=== PATIENT | female | born 1980 | race Caucasian/White ===

== ENCOUNTER 2024-01-09 14:49 | Outpatient (OUT) | payer SELFPAY | END 2024-01-09 14:50 | disposition home or self-care (01) | LOC: PST 14:49 | PROVIDERS: Visit Provider Urology | DX: Z01.818 Encounter for other preprocedural examination (principal); N20.0 Calculus of kidney ==

== ENCOUNTER 2024-01-16 07:14 | Day surgery (SDC) | payer OTHER, SELFPAY ==
[2024-01-16] VITALS (11 sets, daily range): BP systolic 108–145; BP diastolic 74–85; PULSE 57–72; TEMP 36.4; O2SAT 98–100; BMI 29.1
--- OUTSIDE RECORDS SUMMARY | 2024-01-16 07:22 | XMS_ITS | CCD ---
Author Organization [facility] Inform ion [facility] Care Team Providers Care Project Surveyor Name Role Phone FRANCISCO HELTON Consulting Unavailable REQUEST, NONE LISTED Primary Care Unavailable SUNITHA, FRANCISCO Admitting Unavailable SUNITHA, FRANCISCO Attending Unavailable EVAN STOREY Consulting Unavailable AGUBOSIM, LAUREN Consulting Unavailable HELTON, FRANCISCO Consulting Unavailable HELTON, FRANCISCO Admitting Unavailable MISC, DOCTOR Primary Care Unavailable SUNITHA, FRANCISCO Attending Unavailable FRANCA, DAVON Berrios Consulting Unavailable TESFAYE, GENTRY Consulting Unavailable SUNITHA, FRANCISCO Consulting Unavailable SUNITHA, FRANCISCO Admitting Unavailable SUNITHA, FRANCISCO Attending Unavailable MIGEL PINO Consulting Unavailable Lyudmila Romeo Unavailable Venancio LA, Radha Unavailable Unavailable Kip MARTE, Eldon Peña Primary Care Provi j carlos Eldon SHIN Primary Care Physician [phone] Shelly Rogers Unavailable Unavailable Lyudmila Romeo Unavailable Venancio LA, Radha Unavailable Unavailable Kip MARTE, Eldon Peña Primary Care Provi j carlos Lyudmila Romeo Unavailable Venancio LA, Radha Unavailable Unavailable Kip MARTE, Eldon Peña Primary Care Provi j carlos ELDON SHIN Primary Care Unava ilable LOUDEN, CELSO Attending Unavailable ELDON SHIN Primary Care Unava ilable LOUDEN, CELSO Attending Unavailable ELDON SHIN Primary Care Unava ilable LOUDEN, CELSO Attending Unavailable ELDON SHIN Primary Care Unava ilable LOUDEN, CELSO Referring Unavailable ABELARDO, CELSO Attending Unavailable Lyudmila Romeo DO Unavailable Venancio LA, Radha Unavailable Unavailable Kip MARTE, Eldon Peña Primary Care Provi j carlos Eldon SHIN Primary Care Physician [phone] Eldon SHIN Admitting Unavailable BROWN, Eldon Attending Unavailable HELTON, Francisco R Attending Unavailable HELTON, Francisco R Admitting Unavailable Hajdari, Astrit H Attending Unavailable JOHAN, JAYSHREE Dupont Referring Unavailable JOHAN, JAYSHREE Dupont Attending Unavailable JOHAN, JAYSHREE Dupont Admitting Unavailable Joe Green Attending Unavailable BROWN, Eldon Attending Unavailable BROWN, Eldon Attending Unavailable BROWN, Christmasha Attending Unavailable BROWN, Christmasha Attending Unavailable HELTON, Francisco R Attending Unavailable HELTON, Francisco R Attending Unavailable BROWN, Eldon Admitting Unavailable BROWN, Eldon Referring Unavailable BROWN, Eldon Attending Unavailable Cromahogany, Abhi Fischer Attending Unavailable Cromlflakita, Abhi Fischer Referring Unavailable BROWN, Eldon Attending Unavailable Hajdari, Astrit H Attending Unavailable HELTON, Francisco R Attending Unavailable HELTON, Francisco R Referring Unavailable HELTON, Francisco R Attending Unavailable HELTON, Francisco R Admitting Unavailable HELTON, Francisco R Attending Unavailable Allergies Allergy Classification Reported Allergen(s) Allergy Type Date of Onset Reaction(s) Facility (1 source) Grass pollen Drug allergy (disorder) [facility] (1 source) Mold Extract Drug Allergy [facility] (1 source) animal dander Drug allergy (disorder) [facility] (20 sources) GRASS, POLLEN, TREES, WEEDS,MOLD, ANIMAL DANDER 1 Allergy to substance [facility] [place] Comment on above: ASTHMA (3 sources) GRASS, POLLEN, TREES, WEEDS,MOLD, ANIMAL DANDER; Translations: [GRASS, POLLEN, TREES, WEEDS,MOLD, ANIMAL DANDER] Propensity to adverse reactions (disorder) [facility] Repository (3 sources) No Known Medication Allergies; Translations: [No Known Medication Allergies] Propensity to adverse reactions (disorder) [facility] Rep[facility] NEGATED: Highlighted row has been ruled out!Unclassified (1 source) Drug allergy [facility] NEGATED: Highlighted row has been ruled out! (1 source) Drug allergy [facility] NEGATED: Highlighted row has been ruled out! (1 source) Drug allergy [facility] NEGATED: Highlighted row has been ruled out! (1 source) Drug allergy [facility] Radha NEGATED: Highlighted row has been ruled out! (1 source) Drug allergy [facility] Luciano NEGATED: Highlighted row has been ruled out! (1 source) Drug allergy [facility] [place] NEGATED: Highlighted row has been ruled out! (1 source) Drug allergy [facility] Medicine Luciano NEGATED: Highlighted row has been ruled out! (1 source) Drug allergy [facility] [place]iano NEGATED: Highlighted row has been ruled out! (1 source) Drug allergy [facility] [place] NEGATED: Highlighted row has been ruled out! (1 source) Drug allergy [facility] [place]iano NEGATED: Highlighted row has been ruled out! (1 source) Drug allergy [facility] [place] NEGATED: Highlighted row has been ruled out! (1 source) Drug allergy [facility] [place] NEGATED: Highlighted row has been ruled out! (1 source) Drug allergy [facility] [place] NEGATED: Highlighted row has been ruled out! (1 source) Drug allergy [facility] [place] NEGATED: Highlighted row has been ruled out! (1 source) Drug allergy [facility] [place] NEGATED: Highlighted row has been ruled out! (1 source) Drug allergy [facility] [place] NEGATED: Highlighted row has been ruled out! (1 source) Drug allergy [facility] [place] NEGATED: Highlighted row has been ruled out! (1 source) Drug allergy [facility] [place] NEGATED: Highlighted row has been ruled out! (1 source) Drug allergy [facility] [place] NEGATED: Highlighted row has been ruled out! (1 source) Drug allergy [facility] [place] NEGATED: Highlighted row has been ruled out! (1 source) Drug allergy [facility] [place] Medications Current Medications Medication Drug Class(es) Dates Sig (Normalized) Sig (Original) 0.5 ML tirzepatide 30 MG/ML Auto-Injector [Mounjaro] (4 sources) Start: 08-16-2022 inject 15 mg by subcutaneous injection every week Mounjaro 15 mg/0.5 mL subcutaneous solution 15 mg, SubCutaneous, qWeek, Refills(s) 0 Start Date: 08/16/22 Status: Ordered amitriptyline hydrochloride 10 mg oral tablet (17 sources) Tricyclic Antidepressant Start: 10-19-2022 amitriptyline 10 mg Tab See Instructions, Take upto 3 tabs at bedtime for insomnia, # 270 tab(s), Refills(s) 1, Pharmacy: [facility], [facility], cm, 08/16/22 7:55:00 EST, Height/Length Dosing, 83.3, kg, 08/16/22 7:55:00 EST, Weight Dosing Start Date: 10/19/22 Status: Ordered Start: 08-16-2022 amitriptyline 10 mg Tab See Instructions, Take upto 3 tabs at bedtime for insomnia, # 270 tab(s), Refills(s) 1, Pharmacy: [facility], 167, cm, 08/16/22 7:55:00 EST, Height/Length Dosing, 83.3, kg, 08/16/22 7:55:00 EST, Weight Dosing Start Date: 08/16/22 Status: Ordered Start: 10-02-2021 End: 12-06-2021 amitriptyline 10 mg Tab See Instructions, Take upto 3 tabs at bedtime for insomnia, # 270 tab(s), Refills(s) 1, Pharmacy: [facility], 167, cm, 10/02/21 15:47:00 EDT, Height/Length Dosing, 90, kg, 10/02/21 15:47:00 EDT, Weight Dosing Start Date: 10/02/21 Status: Ordered Comment on above: Take 30 mg by mouth daily at bedtime. bifidobacterium infantis 4 mg oral capsule (20 sources) Start: 10-18-19 take 1 capsule by mouth once daily Align 4 mg oral capsule 4 mg = 1 cap(s), Oral, Daily, Take after completing the Antibiotics course, # 28 cap(s), Refills(s) 0, Pharmacy: [facility], 168, cm, 10/17/20 9:23:00 EDT, Height/Length Dosing, 87.5, kg, 10/17/20 9:23:00 EDT, Weight Dosing Start Date: 10/17/20 Status: Ordered 24 hr buPROPion hydrochloride 300 mg extended release oral tablet (20 sources) Aminoketone Start: 10-04-19 24 take 1 tablet by mouth once daily buPROPion 300 mg/24 hours ER Tab 300 mg = 1 tab(s), Oral, Daily, # 90 tab(s), Refills(s) 3, Pharmacy: [facility], 167, cm, 08/30/23 16:13:00 EDT, Height/Length Dosing, 85.9, kg, 08/30/23 16:22:00 EDT, Weight Dosing Start Date: 10/04/23 Status: Ordered Start: 10-02-2021 take 1 tablet by kelly th once daily buPROPion 300 mg/24 hours ER Tab 300 mg = 1 tab(s), Oral, Daily, # 90 tab(s), Refills(s) 1, Pharmacy: [facility], 167, cm, 03/01/23 15:57:00 EDT, Height/Length Dosing, 84, kg, 03/01/23 15:57:00 EDT, Weight Dosing Start Date: 03/01/23 Status: Ordered Start: 04-14-2021 End: 06-12-2022 take 1 tablet by mouth three times daily buPROPion (WELLBUTRIN) 100 mg tablet Take 1 tablet by mouth three times daily. 0 04/14/2021 06/12/2022 Discontinued (Changing Therapy/Dosage Form) Comment on above: Take 1 tablet by kelly th three times daily. Take 300 mg by mouth once daily. calcium citrate 500 mg oral tablet (20 sources) Start: 08-30-2020 take 500 mg by mouth three times daily calcium citrate 500 mg, Oral, TID, Prophylaxis Start Date: 08/30/20 Status: Ordered take 2 tablets by mo uth three times daily, then take 2 tablets by mouth three times daily Calcium Citrate 250 mg calcium tab Take 2 tablets by mouth three times daily. 2 tablets by mouth three times daily 0 Active Comment on above: Take 2 tablets by mo [facility] three times daily. 2 tablets by mouth three times daily Celebrate Multivitamin oral tablet, chewable (20 sources) Start : 10-21 take 1 tablet by mouth twice daily Celebrate Multivitamin oral tablet, chewable 1 tab(s), Chewed, BID, Refill(s) 0, Prophylaxis Start Date: 10/21/18 Status: Ordered cetirizine hydrochloride 10 mg oral tablet (20 sources) Histamine-1 Receptor Antagonist Start : 02-07 take 1 tablet by mouth once daily ZyrTEC 10 mg Tab 10 mg = 1 tab(s), Oral, Daily, Refills(s) 0, Allergy symptoms Start Date: 02/08/12 Status: Ordered Comment on above: Take 10 mg by mouth. citric acid 128 mg/ml / sodium citrate 98 mg/ml oral solution (1 source) Calculi Dissolution Agent, Anti-coagulant Start : 02-08 Oracit oral solution See Instructions, 900 mL, Refill(s) 6, Take 6 teaspoons per day, [facility], 167, cm, 01/07/23 8:50:00 EDT, Height/Length Dosing, 87.2, kg, 01/07/23 8:50:00 EDT, Weight Dosing Start Date: 02/08/23 Status: Ordered Collagen (12 sources) Start : 10-17 collagen topical powder BID, Refill(s) 0 Start Date: 10/17/20 Status: Ordered diazePAM 2 mg oral tablet (3 sources) Benzodiazepine Start : 12-12 take 1 tablet by mouth twice daily diazepam 2 mg Tab 2 mg = 1 tab(s), Oral, BID, rn severe vertigo, sedation warning, # 10 tab(s), Refills(s) 0, Pharmacy: [id number], 165, cm, 12/13/23 10:32:00 EDT, Height/Length Dosing, 86, kg, 12/13/23 10:32:00 EDT, Weight Dosing Start Date: 12/13/23 Status: Ordered doxepin hydrochloride 10 mg oral capsule (6 sources) Tricyclic Antidepressant Start : 11-28 take 1-2 capsules by mouth at bedtime doxepin 10 mg Cap See Instructions, 1-2 cap(s) orally at bedtime for insomnia, # 60 cap(s), Refills(s) 5, Pharmacy: [id number], 167, cm, 11/29/23 14:58:00 EDT, Height/Length Dosing, 88.4, kg, 11/29/23 14:58:00 EDT, Weight Dosing Start Date: 11/29/23 Status: Ordered hydroCHLOROthiazide 12.5 mg oral capsule (20 sources) Thiazide Diuretic Start : 04-23 End: 04-09 take 1 capsule by mouth once daily hydrochlorothiazide 12.5 mg Cap 12.5 mg = 1 cap(s), Oral, Daily, X 90 day(s), # 90 cap(s), Refills(s) 3, Pharmacy: [facility], 167, cm, 03/01/23 15:57:00 EDT, Height/Length Dosing, 84, kg, 03/01/23 15:57:00 EDT, Weight Dosing Start Date: 04/15/23 Stop Date: 04/09/24 Status: Ordered Start: 06-16-2021 take 1 capsule by mo uth once daily hydrochlorothiazide 12.5 mg Cap 12.5 mg = 1 cap(s), Oral, Daily, # 30 cap(s), Refills(s) 11, Pharmacy: [facility], 167, cm, 06/16/21 8:25:00 EST, Height/Length Dosing, 85, kg, 06/16/21 8:25:00 EST, Weight Dosing Start Date: 06/16/21 Status: Ordered take 1 tablet by kelly th once daily hydroCHLOROthiazide (HYDRODIURIL, ESIDRIX) 12.5 mg tablet Take 12.5 mg by mouth once daily. 0 Active Comment on above: Take 12.5 mg by mout h once daily. meclizine hydrochloride 25 mg oral tablet (3 sources) Antiemetic Start: 4 End: 4 take 1 tablet by mouth three times daily as needed for dizziness meclizine 25 mg Tab 25 mg = 1 tab(s), Oral, TID, PRN for dizziness, prn vertigo, X 3 day(s), # 15 tab(s), Refills(s) 0, Pharmacy: [id number], 165, cm, 12/13/23 10:32:00 EDT, Height/Length Dosing, 86, kg, 12/13/23 10:32:00 EDT, Weight Dosing Start Date: 12/13/23 Stop Date: 12/16/23 Status: Ordered metFORMIN hydrochloride 500 mg oral tablet (11 sources) Biguanide Start: take 1 tablet by mouth once daily in the morning, then take 2 tablets by mouth once daily in the evening MetFORMIN (Eqv-Glucophage XR) 500 mg oral tablet, extended release See Instructions, 1 tab(s) po qam, 2 tabs po qpm, # 270 tab(s), Refills(s) 1, Pharmacy: [facility], 167, cm, 08/30/23 16:13:00 EDT, Height/Length Dosing, 85.9, kg, 08/30/23 16:22:00 EDT, Weight Dosing Start Date: 08/30/23 Status: Ordered Start: 07-16-2023 End: 01-12-2024 take 2 tablets by mouth once daily at dinner metFORMIN ER (GLUCOPHAGE XR) 500 mg 24 hr tablet Indications: prevention of type 2 diabetes mellitus Take 2 tablets by mouth daily with dinner. 180 tablet 1 07/16/2023 01/12/2024 Active Start: 07-03-2023 End: 07-16-2023 take 2 tablets by mouth twice daily at mealtime metFORMIN (GLUCOPHAGE) 500 mg tablet Take 2 tablets by mouth two times a day with meals. 360 tablet 1 07/03/2023 07/16/2023 Discontinued (Changing Therapy/Dosage Form) Comment on above: Take 2 tablets by mo ut daily with dinner. Take 2 tablets by mo uth two times a day with meals. minocycline 100 mg oral capsule (3 sources) Tetracycline-class Drug Start: 07-10-2022 minocycline 100 mg Cap Refills(s) 0 Start Date: 07/10/22 Status: Ordered Start: 10-02-2021 minocycline Re fills(s) 0 Start Date: 10/02/21 Status: Ordered Miralax 17 gram packet (18 sources) Start: 08-30-2020 take 17 g by mouth once daily Miralax 17 gram packet 17 gram, Oral, Daily, dissolve in water before taking, Constipation Start Date: 08/30/20 Status: Ordered Mounjaro 15 mg/0.5 mL subcutaneous solution (2 sources) Start: 08-16-2022 inject 15 mg by subcutaneous injection every week Mounjaro 15 mg/0.5 mL subcutaneous solution 15 mg, SubCutaneous, qWeek, Refills(s) 0 Start Date: 08/16/22 Status: Ordered phentermine hydrochloride 37.5 mg oral tablet (18 sources) Sympathomimetic Amine Anorectic Start: 11-29-2023 phentermine 37.5 mg Tab 37.5 mg = 1 tab(s), Oral, Daily, 31.7 BMI before breakfast, # 30 tab(s), Refills(s) 0, Pharmacy: [id number], 167, cm, 11/29/23 14:58:00 EDT, Height/Length Dosing, 88.4, kg, 11/29/23 14:58:00 EDT, Weight Dosing Start Date: 11/29/23 Status: Ordered Start: 07-03-2023 End: 10-01-2023 phentermine 37.5 mg Tab 37.5 mg = 1 tab(s), Oral, Daily, 30.8 BMI before breakfast, # 30 tab(s), Refills(s) 0, Pharmacy: [facility], 167, cm, 08/30/23 16:13:00 EDT, Height/Length Dosing, 85.9, kg, 08/30/23 16:22:00 EDT, Weight Dosing Start Date: 08/30/23 Status: Ordered Start: 01-08-2022 End: 03-09-2022 take 30-30.9 tablets by mouth once daily Phentermine HCl 37.5 mg tablet Indications: Class 1 obesity with body mass index (BMI) of 30.0 to 30.9 in adult, unspecified obesity type, unspecified whether serious comorbidity present Take 1 tablet by mouth once daily for 30 days. 30 tablet 0 02/07/2022 03/09/2022 Active Start: 12-15-2021 take 1 capsule by mo [facility] once daily phentermine 37.5 mg oral capsule 37.5 mg = 1 cap(s), Oral, Daily, Refills(s) 0 Start Date: 12/15/21 Status: Ordered Start: 12-06-2021 End: 01-05-2022 take 30-30.9 tablets by mouth once daily Phentermine HCl 37.5 mg tablet Indications: Class 1 obesity with body mass index (BMI) of 30.0 to 30.9 in adult, unspecified obesity type, unspecified whether serious comorbidity present Take 1 tablet by mouth once daily for 30 days. 30 tablet 0 12/06/2021 01/05/2022 Active Comment on above: Take 1 tablet by [facility] once daily for 30 days. Take 1 tablet by [facility] once daily for 90 days. polyethylene glycol 3350 12072 mg powder for oral solution (15 sources) Osmotic Laxative Start: 08-30-2020 take 17 g by mouth once daily Miralax 17 gram packet 17 gram, Oral, Daily, dissolve in water before taking, Constipation Start Date: 08/30/20 Status: Ordered Comment on above: Take by mouth once d aily. 0.25 mg, 0.5 mg dose 1.5 ml semaglutide 1.34 mg/ml pen injector (10 sources) Start: 12-15-2021 Ozempic 2 mg/1.5 mL (0.25 mg or 0.5 mg dose) subcutaneous solution mg, SubCutaneous, qWeek, Refill(s) 0 Start Date: 12/15/21 Status: Ordered Start: 12-06-2021 End: 03-06-2022 semaglutide (OZEMPIC) 0.25 m g or 0.5 mg(2 mg/1.5 mL) pen injector Inject 0.5 mg subcutaneously one time a week. 2 mL 2 12/06/2021 02/07/2022 Discontinued (Changing Therapy/Dosage Form) Start: 11-01-2021 End: 12-13-2021 inject 0.25 mg by subcutaneous injection every week, then inject 0.5 mg by subcutaneous injection every week semaglutide (OZEMPIC) 0.25 mg or 0.5 mg(2 mg/1.5 mL) pen injector Inject 0.25 mg subcutaneously one time a week for 28 days, THEN 0.5 mg one time a week for 14 days. 1.5 mL 0 11/01/2021 12/06/2021 Discontinued (Changing Therapy/Dosage Form) Comment on above: Inject 0.25 mg subcu taneously one time a week for 28 days, THEN 0.5 mg one time a week for 14 days. Inject 0.5 mg subcut aneously one time a week. tirzepatide (MOUNJARO) 12.5 mg/0.5 mL pen injector (2 sources) Start: End: inject 12.5 mg by subcutaneous injection every week tirzepatide (MOUNJARO) 12.5 mg/0.5 mL pen injector Inject 12.5 mg subcutaneously one time a week. 2 mL 2 12/06/2022 03/06/2023 Active Start: 07-02-2022 End: 09-30-2022 inject 12.5 mg by subcutaneous injection every week tirzepatide (MOUNJARO) 12.5 mg/0.5 mL pen injector Indications: S/P gastric bypass , Obesity (BMI 30.0-34.9) Inject 12.5 mg subcutaneously one time a week. 2 mL 2 07/02/2022 09/30/2022 Active Comment on above: Inject 12.5 mg subcu taneously one time a week. tirzepatide (MOUNJARO) 15 mg/0.5 mL pen injector (2 sources) Start: End: inject 15 mg by subcutaneous injection every week tirzepatide (MOUNJARO) 15 mg/0.5 mL pen injector Inject 15 mg subcutaneously one time a week. 2 mL 2 11/19/2022 02/17/2023 Active Start: 08-10-2022 End: 11-08-2022 inject 15 mg by subcutaneous injection every week tirzepatide (MOUNJARO) 15 mg/0.5 mL pen injector Inject 15 mg subcutaneously one time a week. 2 mL 2 08/10/2022 11/08/2022 Active Comment on above: Inject 15 mg subcuta neously one time a week. Vitamin B1 100 mg Tab (6 sources) Start: Vitamin B1 100 mg Tab 300 mg = 3 tab(s), Oral, Daily, Refills(s) 0, Prophylaxis Start Date: 09/26/20 Status: Ordered Zofran ODT 4 mg Tab-Dis (5 sources) Start: take 1 tablet by mouth three times daily Zofran ODT 4 mg Tab-Dis 4 mg = 1 tab(s), Oral, TID, # 15 tab(s), Refills(s) 0, Pharmacy: [facility], 165.1, cm, 12/10/23 8:43:00 EDT, Height/Length Dosing, 85.3, kg, 12/10/23 8:43:00 EDT, Weight Dosing Start Date: 12/10/23 Status: Ordered Completed/Discontinued Medications Medication Drug Class(es) Dates Sig (Normalized) Sig (Original) ARIPiprazole 5 mg oral tablet (20 sources) Atypical Antipsychotic Start: 10-02-2021 take 1 tablet by mouth once daily Abilify 5 mg Tab 5 mg = 1 tab(s), Oral, Daily, discontinue Fuoxetine, # 90 tab(s), Refills(s) 1, Pharmacy: [facility], 167, cm, 08/16/22 7:55:00 EST, Height/Length Dosing, 83.3, kg, 08/16/22 7:55:00 EST, Weight Dosing Start Date: 08/16/22 Status: Ordered Comment on above: Take 5 mg by mouth d aily at bedtime. diphenhydrAMINE hydrochloride 25 mg oral capsule (8 sources) Histamine-1 Receptor Antagonist Start: 06-10-2016 End: 06-12-2022 diphenhydrAMINE (BENADRYL) 25 mg capsule FLUoxetine 20 mg oral capsule (8 sources) Serotonin Reuptake Inhibitor Start: 04-14-2021 End: 06-12-2022 take 1 capsule by mouth once daily FLUoxetine (PROZAC) 20 mg capsule Take 1 capsule by mouth once daily. 0 04/14/2021 06/12/2022 Discontinued (Clinical Decision) Comment on above: Take 1 capsule by [facility] once daily. K-Effervescent 25 mEq oral tablet, effervescent (1 source) Start: 12-20-2023 take 1 tablet by mouth twice daily K-Effervescent 25 mEq oral tablet, effervescent 25 mEq = 1 tab(s), Oral, BID, # 60 tab(s), Refills(s) 11, Pharmacy: [id number], 167, cm, 12/20/23 9:58:00 EDT, Height/Length Dosing, 83.5, kg, 12/20/23 9:58:00 EDT, Weight Dosing Start Date: 12/20/23 Status: Ordered Lactobac no.41/Bifidobact no.7 (PROBIOTIC-10 ORAL) (12 sources) Start: 09-15-2018 Lactobac no.41/Bifidobact no.7 (PROBIOTIC-10 ORAL) melatonin 1 mg oral tablet (8 sources) Start: 04-14-2021 End: 06-12-2022 melatonin 1 mg tablet Take 1 tablet by mouth as needed for for insomnia. 0 04/14/2021 06/12/2022 Discontinued (Discontinued by another Health Care Provider) Comment on above: Take 1 tablet by kelly th as needed for for insomnia. Multivitamin preparation (12 sources) multivitamin (MULTIPLE VITAMINS ORAL) Take by mouth. 0 Active Comment on above: Take by mouth. mupirocin 0.02 mg/mg topical ointment (8 sources) RNA Synthetase Inhibitor Antibacterial Start: 05-15-2021 End: 06-12-2022 mupirocin (BACTROBAN) 2 % ointment Apply to incisions twice daily 30 g 1 05/15/2021 06/12/2022 Discontinued (Course of therapy completed) Comment on above: Apply to incisions t wice daily naproxen 500 mg oral tablet (17 sources) Nonsteroidal Anti-inflammatory Drug Start: 05-08-2022 take 1 tablet by mouth twice daily naproxen 500 mg Tab 500 mg = 1 tab(s), Oral, BID, Take one tab by mouth two times a day, # 14 tab(s), Refills(s) 0 Start Date: 05/08/22 Status: Ordered potassium chloride 20 meq extended release oral tablet (17 sources) Start: 11-29-2023 take 1 tablet by mouth once daily potassium chloride 20 mEq ER Tab 20 mEq = 1 tab(s), Oral, Daily, # 90 tab(s), Refills(s) 1, Pharmacy: [id number], 167, cm, 11/29/23 14:58:00 EDT, Height/Length Dosing, 88.4, kg, 11/29/23 14:58:00 EDT, Weight Dosing Start Date: 11/29/23 Status: Ordered Start: 06-17-2023 take 1 tablet by kelly once daily potassium chloride 20 mEq ER Tab 20 mEq = 1 tab(s), Oral, Daily, # 90 tab(s), Refills(s) 1, Pharmacy: [facility], 167, cm, 03/01/23 15:57:00 EDT, Height/Length Dosing, 84, kg, 03/01/23 15:57:00 EDT, Weight Dosing Start Date: 06/17/23 Status: Ordered Start: 12-07-2022 take 1 tablet by [facility] once daily potassium chloride 20 mEq ER Tab 20 mEq = 1 tab(s), Oral, Daily, # 90 tab(s), Refills(s) 1, Pharmacy: [facility], 167, cm, 08/16/22 7:55:00 EST, Height/Length Dosing, 83.3, kg, 08/16/22 7:55:00 EST, Weight Dosing Start Date: 12/07/22 Status: Ordered Start: 06-20-2022 take 1 tablet by [facility] once daily potassium chloride 20 mEq ER Tab 20 mEq = 1 tab(s), Oral, Daily, # 90 tab(s), Refills(s) 1, Pharmacy: [facility], 167, cm, 05/08/22 8:37:00 EST, Height/Length Dosing, 88, kg, 05/08/22 8:37:00 EST, Weight Dosing Start Date: 06/20/22 Status: Ordered psyllium 525 mg oral capsule (20 sources) Start: 10-17-2020 take 8 capsules by mouth once daily Metamucil 525 mg oral capsule 1,050 mg = 2 cap(s), Oral, Daily, Take 2 hour apart from the other medications with at least 8 ounces of water, # 160 cap(s), Refills(s) 1, Pharmacy: [facility], 168, cm, 10/17/20 9:23:00 EDT, Height/Length Dosing, 87.5, kg, 10/17/20 9:23:00 EDT, Weight Dosing Start Date: 10/17/20 Status: Ordered tirzepatide (MOUNJARO) 10 mg/0.5 mL pen injector (2 sources) Start: 05-15-2022 tirzepatide (M OUNJARO) 10 mg/0.5 mL pen injector Indications: S/P gastric bypass , Class 1 obesity with body mass index (BMI) of 30.0 to 30.9 in adult, unspecified obesity type, unspecified whether serious comorbidity present Inject 10 mg subcutaneously one time a week. 2 mL 0 05/15/2022 Active Start: 05-15-2022 End: 06-14-2022 tirzepatide (MOUNJARO) 10 mg /0.5 mL pen injector Indications: S/P gastric bypass , Class 1 obesity with body mass index (BMI) of 30.0 to 30.9 in adult, unspecified obesity type, unspecified whether serious comorbidity present Inject 10 mg subcutaneously one time a week. 2 mL 0 05/15/2022 06/14/2022 Active Comment on above: Inject 10 mg subcuta neously one time a week. tirzepatide (MOUNJARO) 2.5 mg/0.5 mL pen injector (2 sources) Start: End: inject 2.5 mg by subcutaneous injection every week tirzepatide (MOUNJARO) 2.5 mg/0.5 mL pen injector Inject 2.5 mg subcutaneously one time a week. 2 mL 0 02/07/2022 05/15/2022 Discontinued Start: 02-07-2022 End: 03-09-2022 inject 2.5 mg by subcutaneous injection every week tirzepatide (MOUNJARO) 2.5 mg/0.5 mL pen injector Inject 2.5 mg subcutaneously one time a week. 2 mL 0 02/07/2022 03/09/2022 Active Comment on above: Inject 2.5 mg subcut aneously one time a week. tirzepatide (MOUNJARO) 5 mg/0.5 mL pen injector (3 sources) Start: inject 5 mg by subcutaneous injection every week tirzepatide (MOUNJARO) 5 mg/0.5 mL pen injector Inject 5 mg subcutaneously one time a week. 2 mL 2 03/07/2022 Active Start: 03-07-2022 End: 06-05-2022 inject 5 mg by subcutaneous injection every week tirzepatide (MOUNJARO) 5 mg/0.5 mL pen injector Inject 5 mg subcutaneously one time a week. 2 mL 2 03/07/2022 06/05/2022 Active Comment on above: Inject 5 mg subcutaneously one time a we ek. tubing kit (6 sources) Start: 0 tubing kit tubing kit, See Instructions, 1 EA, 0, tubing kit for nebulizer, [employer] [facility], Supply, 168, cm, 02/10/20 15:36:00 EDT, Height/Length Dosing, 85, kg, 02/10/20 15:36:00 EDT, Weight Dosing Start Date: 03/08/20 Status: Ordered Vitamin D3 1000 intl units oral capsule (20 sources) Start: 0 take 5 capsules by mouth once daily Vitamin D3 1000 intl units oral capsule 5,000 International_Unit = 5 cap(s), Oral, Daily, Refills(s) 0, Prophylaxis Start Date: 08/20/19 Status: Ordered vitamin D3-vitamin K2, MK4, 1,000-100 unit-mcg tab (12 sources) take 1 capsule by mouth three times daily vitamin D3-vitamin K2, MK4, 1,000-100 unit-mcg tab Take 1 capsule by mouth three times daily. 0 Active Comment on above: Take 1 capsule by mouth three times danika y. Problems Active Problems Problem Classification Problem Date Documented Da te Episodic/Chronic Abdominal pain (1 source) Unspecified abdominal pain; Translations: [UNSPECIFIED ABDOMINAL PAIN] Onset: 1 Episodic Anxiety disorders (12 sources) Mixed anxiety and depressive disorder; Translations: [Other specified anxiety disorders] Onset: 1 04-14-2021 Chronic Asthma (20 sources) Moderate persistent asthma, uncomplicated; Translations: [Moderate persistent asthma] Onset: 1 Chronic Bacterial infection; unspecified site (1 source) Personal history of Methicillin resistant Staphylococcus aureus infection; Translations: [PERS HX METHICILLIN RSIST STAPH INF] Onset: 1 Episodic Calculus of urinary tract (20 sources) Calculus of kidney; Translations: [Kidney stone] Onset: 1 09-09-2020 Episodic Complications of surgical procedures or medical care (19 sources) Post-surgical malabsorption; Translations: [Postsurgical malabsorption, not elsewhere classified] Onset: 3 Chronic Conditions associated with dizziness or vertigo (5 sources) Dizziness and giddiness; Translations: [Dizziness and giddiness] Onset: 4 Episodic Essential hypertension (20 sources) Essential (primary) hypertension; Translations: [Essential hypertension] Onset: 1 Chronic Fluid and electrolyte disorders (16 sources) Hypokalemia; Translations: [Hypokalemia] Onset: 3 Episodic Genitourinary symptoms and ill-defined conditions (14 sources) Frequency of micturition; Translations: [Increased frequency of urination] Onset: 1 Episodic Genitourinary symptoms and ill-defined conditions (2 sources) Stress incontinence (female) (male); Translations: [Other microscopic hematuria] Onset: 1 Headache; including migraine (4 sources) Migraine without aura, not refractory ; Translations: [Migraine without aura, not intractable, without status migrainosus] Onset: 4 Chronic Headache; including migraine (1 source) Headache; Translations: [Headache, unspecified] Onset: 4 Episodic Immunizations and screening for infectious disease (1 source) Vaccination given; Translations: [Encounter for immunization] Onset: 3 Episodic Menstrual disorders (20 sources) Menorrhagia 02-05-2014 Chronic Miscellaneous mental health disorders (20 sources) Psychophysiologic insomnia; Translations: [Psychophysiologic insomnia] Onset: 2 Chronic Mood disorders (20 sources) Major depression single episode, in partial remission; Translations: [Major depressive disorder, single episode, in partial remission] Onset: 2 Resolved: 9 Chronic Mycoses (20 sources) Onychomycosis of toenails 09-15-2019 Episodic Other aftercare (1 source) Other senior living (current) drug therapy; Translations: [OTH SNF CURRENT DRUG THERAPY] Onset: 1 Episodic Other aftercare (1 source) Patient encounter status; Translations: [Other senior living (current) drug therapy] Episodic Other aftercare (1 source) Surgical follow-up; Translations: [Encounter for surgical aftercare following surgery on the digestive system] Episodic Other ear and sense organ disorders (20 sources) Otalgia 09-26-2020 Episodic Other gastrointestinal disorders (4 sources) Bariatric surgery status; Translations: [BARIATRIC SURGERY STATUS] Onset: 1 Episodic Other gastrointestinal disorders (18 sources) History of bypass of stomach; Translations: [Bariatric surgery status] Onset: 9 08-13-2018 Episodic Other hereditary and degenerative nervous system conditions (16 sources) Essential tremor; Translations: [Essential tremor] Onset: 3 Chronic Other nervous system disorders (8 sources) Muscle twitch 06-13-2022 Episodic Other nutritional; endocrine; and metabolic disorders (1 source) Obesity, unspecified; Translations: [OBESITY UNSPECIFIED] Onset: 1 Chronic Other nutritional; endocrine; and metabolic disorders (1 source) Body mass index (BMI) 32.0-32.9, adult; Translations: [BODY MASS INDEX BMI 32.0-32.9 ADULT] Onset: 1 Chronic Other nutritional; endocrine; and metabolic disorders (18 sources) Obese class I; Translations: [Obesity, unspecified] Onset: 0 04-14-2021 Chronic Other nutritional; endocrine; and metabolic disorders (10 sources) Obesity; Translations: [Other obesity due to excess calories] Onset: 2 Chronic Other nutritional; endocrine; and metabolic disorders (16 sources) Body mass index 30+ - obesity 10-02-2021 Chronic Other nutritional; endocrine; and metabolic disorders (20 sources) Simple obesity 08-02-2021 Chronic Other nutritional; endocrine; and metabolic disorders (3 sources) Obesity caused by energy imbalance 12-11-2023 Chronic Other nutritional; endocrine; and metabolic disorders (1 source) Disorder of calcium metabolism; Translations: [Other disorders of calcium metabolism] Onset: 4 Chronic Other nutritional; endocrine; and metabolic disorders (1 source) Hypocalciuria 12-20-2023 Chronic Other nutritional; endocrine; and metabolic disorders (20 sources) Overweight; Translations: [Overweight] Onset: 3 02-03-2021 Episodic Other nutritional; endocrine; and metabolic disorders (6 sources) Overweight in adulthood with body mass index of 25 or more but less than 30; Translations: [Body mass index (BMI) 29.0-29.9, adult] Onset: 3 Episodic Other nutritional; endocrine; and metabolic disorders (1 source) Body mass index 25-29 - overweight; Translations: [Overweight] Episodic Other screening for suspected conditions (not mental disorders or infectious disease) (3 sources) Encounter for screening mammogram for malignant neoplasm of breast; Translations: [Screening for malignant neoplasm done] Onset: 2 Episodic Other skin disorders (1 source) Actinic keratosis; Translations: [ACTINIC KERATOSIS] Onset: 1 Episodic Other skin disorders (20 sources) Inflamed seborrheic keratosis 12-09-2019 Episodic Other skin disorders (20 sources) Multiple actinic keratoses 11-14-2019 Episodic Other upper respiratory disease (20 sources) Seasonal allergic rhinitis; Translations: [Other seasonal allergic rhinitis] Onset: 2 Chronic Other upper respiratory infections (20 sources) Frontal sinusitis 09-15-2019 Chronic Otitis media and related conditions (20 sources) Acute non-suppurative otitis media - serous 09-15-2019 Episodic Residual codes; unclassified (1 source) Obstructive sleep apnea (adult) (pediatric); Translations: [OBSTRUCTIVE SLEEP APNEA] Onset: 1 Chronic Residual codes; unclassified (13 sources) Obstructive sleep apnea syndrome; Translations: [Obstructive sleep apnea (adult) (pediatric)] Onset: 2 04-28-2019 Chronic Residual codes; unclassified (1 source) Acquired absence of both cervix and uterus; Translations: [ACQUIRED ABSENCE BOTH CERVIX AND UTERUS] Onset: 1 Episodic Residual codes; unclassified (1 source) Postoperative state; Translations: [Other specified postprocedural states] Episodic Residual codes; unclassified (20 sources) Abnormal sensation 09-26-2020 Episodic Unclassified (20 sources) History of bypass of stomach 09-26-2020 Unclassified (20 sources) Patient encounter status 01-22-2021 Past or Other Problems Problem Classification Problem Date Documented Date Episodic/Chronic Hemorrhage during ; abruptio placenta; placenta previa (20 sources) Placental abruption Resolved: 03-29-2011 10-28-2018 Episodic Other circulatory disease (12 sources) H/O: hypertension; Translations: [Personal history of other diseases of the circulatory system] Onset: 04-14-2021 04-14-2021 Episodic Other female genital disorders (20 sources) Rupture of uterus Resolved: 03-29-2011 10-28-2018 Episodic Other nervous system disorders (20 sources) Carpal tunnel syndrome Resolved: 10-27-2013 10-28-2018 Chronic Comment on above: LEFT Other nervous system disorders (13 sources) H/O: respiratory disease; Translations: [Personal history of other diseases of the nervous system and sense organs] Onset: 04-14-2021 04-14-2021 Episodic Residual codes; unclassified (20 sources) H/O: severe pre-eclampsia Resolved: 01-29-2011 10-28-2018 Episodic Unclassified (20 sources) Methicillin resistant Staphylococcus aureus (organism) Onset: 01-25-2012 10-29-2012 Comment on above: diagnosed 6 weeks ag o , in upper left arm Unclassified (4 sources) PINK EYE RIGHT( Confirmed ) 3 10-29-2012 Comment on above: JUST SAW dR AND STAR PERRI DROPS ON 10/29/2012 Unclassified (4 sources) subconjunctive hemorrhage( Confirmed ) 11-07-2012 Unclassified (17 sources) PINK EYE RIGHT 3 10-29-2012 Comment on above: JUST SAW dR AND STAR PERRI DROPS ON 10/29/2012 Unclassified (17 sources) subconjunctive hemorrhage 11-07-2012 Results Test Name Value Interpretation Reference Range Facil ity XR Abdomen 1 Viewon 12-18-19 24 XR Abdomen 1 View Exam Date/Time: 12/17/2023 07:21 EDT Reason for Exam: N20.0;Kidney stone Report IMPRESSION: LEFT RENAL CALCULI MEASURING UP TO 5 MM. POSSIBLE RIGHT RENAL CALCULI. EXAMINATION: XR Abdomen 1 View HISTORY: Kidney stone TECHNIQUE: Frontal view of the abdomen and pelvis COMPARISON: Radiographs 01/03/2023 FINDINGS: At least 4 left renal calculi are identified, the largest of which measures approximately 5 mm. Question tiny right renal calculi versus bowel contents. No definitive calcifications identified along the expected course of either ureter. Nonobstructive bowel gas pattern. No evidence of free air. No acute osseous abnormality. Ordering Provider: Francisco HELTON FINAL REPORT Dictated: 12/18/2023 3:35 pm Abhi Lange DO Signed (Electronic Signature): 12/18/2023 3:35 pm Signed by: Abhi Lange DO Transcribed by: MADELINE Technologist: PURVI Technical Comments Radiation Dose: Ka,r in mGy = na DAP = na Normal [facility] Ambulatory Visit Summaryon 0 12-13-2023 Ambulatory Visit Summary Ambulatory Visit Summary VIVIANE TERESA :1980 Visit Date:12/13/2023 Ambulatory Visit Instructions Your Diagnosis Atypical migraine Vertigo Essential hypertension Class 1 obesity due to excess calories in adult BMI 31.0-31.9,adult Your Care Team Attending Physician - Eldon SHIN MD Primary Care Physician - KIP MARTE, Eldon This Is Your Medications List diazepam (diazepam 2 mg Tab) meclizine (meclizine 25 mg Tab) Contact prescribing physician if questions or concerns bifidobacterium infantis (Align 4 mg oral capsule) buPROPion (buPROPion 300 mg/24 hours ER Tab) calcium citrate cetirizine (ZyrTEC 10 mg Tab) cholecalciferol (Vitamin D3 1000 intl units oral capsule) doxepin (doxepin 10 mg Cap) hydrochlorothiazide (hydrochlorothiazide 12.5 mg Cap) metformin (MetFORMIN (Eqv-Glucophage XR) 500 mg oral tablet, extended release) multivitamin with minerals (Celebrate Multivitamin oral tablet, chewable) naproxen (naproxen 500 mg Tab) ondansetron (Zofran ODT 4 mg Tab-Dis) phentermine (phentermine 37.5 mg Tab) polyethylene glycol 3350 (Miralax 17 gram packet) potassium chloride (potassium chloride 20 mEq ER Tab) psyllium (Metamucil 525 mg oral capsule) Procedures Performed Colonoscopy (10/28/2020), Cystoscopy (08/31/2020), ESWL of kidney (08/11/2020), ESWL of kidney (08/04/2020), ESWL of kidney (07/28/2020), Bariatric operative procedure (08/05/2018), right carpal tunnel release (02/05/2014), left carpal tunnel release (11/06/2013), section (02/18/2009), Arthroscopy of knee (1999), Operation on septum of nose (1997), Arthroscopy of wrist (1995), Operation on septum of nose (1995), Plastic excision of skin of abdominal wall, Removal of skin flap, tubal ligation, Vaginal hysterectomy. Discharge Vitals Temperature (Temporal Artery) 36.6 ?C Heart Rate (Peripheral) 74 Respiratory Rate 18 Blood Pressure 114/64 Height 165 cm Height 65 in Weight 86 kg Weight 189.2 lb BMI 31.59 What to do next Scheduled Follow-Up Appointments Saturday 7:30 AM EDT With: Where: [facility] Saturday 9:45 AM EDT With: Francisco HELTON MD Where: [facility] [address] [place] [address]- \.br\ You Need to Schedule the Following Appointments\.br\ Follow Up with KIP MARTE, TYSON Briggs When: Only if needed\.br\ Where:\.br\ \.br\ Medications\.br\ What How Much When Why Instructions\.br\ New diazepam (diazepam 2 mg Tab) 1 Tablets By Mouth 2 times a day Vertigo rn severe vertigo, sedation warning Pickup at [facility]\.br\ Changed meclizine (meclizine 25 mg Tab) 1 Tablets By Mouth 3 times a day as needed for for dizziness Duration: 3 Days prn vertigo Pickup at [facility]\.br\ Unchanged bifidobacterium infantis (Align 4 mg oral capsule) 1 Capsules By Mouth Every day Change in bowel habits Take after completing the Antibiotics course Contact prescribing physician if questions or concerns \.br\ Unchanged buPROPion (buPROPion 300 mg/ 24 hours ER Tab) 1 Tablets By Mouth Every day Contact prescribing physician if questions or concerns \.br\ Unchanged calcium citrate 500 Milligram By Mouth 3 times a day Contact prescribing physician if questions or concerns \.br\ Unchanged cetirizine (ZyrTEC 10 mg Tab) 1 Tablets By Mouth Every day Contact prescribing physician if questions or concerns \.br\ Unchanged cholecalciferol (Vitamin D3 1000 intl units oral capsule) 5 Capsules By Mouth Every day Contact prescribing physician if questions or concerns \.br\ Unchanged doxepin (doxepin 10 mg Cap) See instructions 1-2 cap(s) orally at bedtime for insomnia Contact prescribing physician if questions or concerns \.br\ Unchanged hydrochlorothiazide (hydrochlorothiazide 12.5 mg Cap) 1 Capsules By Mouth Every day Duration: 90 Days Contact prescribing physician if questions or concerns \.br\ Unchanged metformin (MetFORMIN (Eqv-Glucophage XR) 500 mg oral tablet, extended release) See instructions 1 tab(s) po qam, 2 tabs po qpm Contact prescribing physician if questions or concerns \.br\ Unchanged multivitamin with minerals (Celebrate Multivitamin oral tablet, chewable) 1 Tablets Chewed 2 times a day Contact prescribing physician if questions or concerns \.br\ Unchanged naproxen (naproxen 500 mg Tab) 1 Tablets By Mouth 2 times a day Take one tab by mouth two times a day Contact prescribing physician if questions or concerns \.br\ Unchanged ondansetron (Zofran ODT 4 mg Tab-Dis) 1 Tablets By Mouth 3 times a day Contact prescribing physician if questions or concerns \.br\ Unchanged phentermine (phentermine 37.5 mg Tab) 1 Tablets By Mouth Every day Overweight 31.7 BMI before breakfast Contact prescribing physician if questions or concerns \.br\ Unchanged polyethylene glycol 3350 (Miralax 17 gram packet) 17 Gram By Mouth Every day dissolve in water before taking Contact prescribing physician if questions or concerns \.br\ Unchanged potassium chloride (potassium chloride 20 mEq ER Tab) 1 Tablets By Mouth Every day Contact prescribing physician if questions or concerns \.br\ Unchanged psyllium (Metamucil 525 mg oral capsule) 2 Capsules By Mouth Every day Change in bowel habits Take 2 hour apart from the other medications with at least 8 ounces of water Contact prescribing physician if questions or concerns \.br\ Pharmacy Information\.br\ [facility]: [address] [place], [place] [id number] [phone]\.br\ Allergies\.br\ GRASS, POLLEN, TREES, WEEDS,MOLD, ANIMAL DANDER\.br\ No Known Medication Allergies\.br\ Problems\.br\ Ongoing - Any problem that you are currently receiving treatment for.\.br\ Actinic keratoses\.br\ Asthma, moderate persistent\.br\ Atypical migraine\.br\ Bilateral nephrolithiasis\.br\ BMI 31.0-31.9,adult\.br\ Chronic insomnia\.br\ Chronic seasonal allergic rhinitis\.br\ Class 1 obesity due to excess calories in adult\.br\ Encounter for well adult exam with abnormal findings\.br\ Essential hypertension\.br\ Essential tremor\.br\ Hypokalemia\.br\ Inflamed seborrheic keratosis\.br\ Kidney stone\.br\ Major depression in partial remission\.br\ Onychomycosis of left great toe\.br\ Personal history of gastric bypass\.br\ Postoperative malabsorption\.br\ Screening mammogram, encounter for\.br\ Urinary frequency\.br\ Vertigo\.br\ Historical - Any problem that you are no longer receiving treatment for.\.br\ Carpal tunnel syndrome\.br\ Depression, Mild\.br\ Dysesthesia\.br\ Frontal sinusitis\.br\ History of - section\.br\ History of - severe pre-eclampsia\.br\ Hypermenorrhea\.br\ MRSA\.br\ Obesity due to excess calories\.br\ Otalgia of right ear\.br\ Overweight\.br\ PINK EYE RIGHT\.br\ Placental abruption\.br\ Right acute serous otitis media\.br\ subconjunctive hemorrhage\.br\ Uterine rupture\.br\ Patient Survey\.br\ You may receive a survey via text or e-mail asking about your office visit. Please share your experience with us by completing your survey. We appreciate your feedback and thank you for choosing us for your care.\.br\ Education Materials\.br\ Migraine Headache\.br\ A migraine headache is an intense, throbbing pain on one side or both sides of the head. Migraine headaches may also cause other symptoms, such as nausea, vomiting, and sensitivity to light and noise. A migraine headache can last from 4 hours to 3 days. Talk with your doctor about what things may bring on (trigger) your migraine headaches.\.br\ What are the causes?\.br\ The exact cause of this condition is not known. However, a migraine may be caused when nerves in the brain become irritated and release chemicals that cause inflammation of blood vessels. This inflammation causes pain. This condition may be triggered or caused by:\.br\ ? \.br\ Drinking alcohol.\.br\ ? \.br\ Smoking.\.br\ ? \.br\ Taking medicines, such as:\.br\ ? \.br\ Medicine used to treat chest pain (nitroglycerin).\.br \ ? \.br\ control pills.\.br\ ? \.br\ Estrogen.\.br\ ? \.br\ Certain blood pressure medicines.\.br\ ? \.br\ Eating or drinking products that contain nitrates, glutamate, aspartame, or tyramine. Aged cheeses, chocolate, or caffeine may also be triggers.\.br\ ? \.br\ Doing physical activity.\.br\ Other things that may trigger a migraine headache include:\.br\ ? \.br\ Menstruation.\.br\ ? \.br\ .\.br\ ? \.br\ Hunger.\.br\ ? \.br\ Stress.\.br\ ? \.br\ Lack of sleep or too much sleep.\.br\ ? \.br\ Weather changes.\.br\ ? \.br\ Fatigue.\.br\ What increases the risk?\.br\ The following factors may make you more likely to experience migraine headaches:\.br\ ? \.br\ Being a certain age. This condition is more common in people who are 25?55 years old.\.br\ ? \.br\ Being female.\.br\ ? \.br\ Having a family history of migraine headaches.\.br\ ? \.br\ Being .\.br\ ? \.br\ Having a mental health condition, such as depression or anxiety.\.br\ ? \.br\ Being obese.\.br\ What are the signs or symptoms?\.br\ The main symptom of this condition is pulsating or throbbing pain. This pain may:\.br\ ? \.br\ Happen in any area of the head, such as on one side or both sides.\.br\ ? \.br\ Interfere with daily activities.\.br\ ? \.br\ Get worse with physical activity.\.br\ ? \.br\ Get worse with exposure to bright lights or loud noises.\.br\ Other symptoms may include:\.br\ ? \.br\ Nausea.\.br\ ? \.br\ Vomiting.\.br\ ? \.br\ Dizziness.\.br\ ? \.br\ General sensitivity to bright lights, loud noises, or smells.\.br\ Before you get a migraine headache, you may get warning s [facility] Medicine Office/Clini c Noteon 12-13-2023 Family Medicine Office/Clinic Note Family Medicine Office/Clinic Note Chief Complaint ER follow up, [facility] 12/10/23, dizziness History of Present Illness The patient is a 43-year-old female who presents for follow-up for dizziness with probable vertigo, ER with a major work-up. All notes are reviewed from 12/10/2023 The patient recently returned from a trip to [place] she had no problems or symptoms while she was there.morning of 12/09 she was at work and she experienced a sudden onset of headache at work. However, while seated at her desk during conversations with a nurse, she began to feel unwell, which progressively worsened. She experienced blurry vision, difficulty focusing, and memory lapses. Her blood pressure was elevated, prompting her to seek emergency care. A CT scan and laboratory tests were performed, which did not reveal any significant findings. She was prescribed meclizine, which she took thrice daily. Currently, she reports feeling a heavy sensation at the back of her head, accompanied by a spinning sensation when moving her eyes or head rapidly, accompanied by nausea. She has no history of positional vertigo and has not experienced any recent falls. She also denies any issues with travel or flying. No fevers no chills. Heaviness in the back of the head today without overt headache. They are leaving for camping this weekend anticipating kayaking. Review of Systems PHQ Score Initial Depression Screen Score: 0 SCORE See HPI otherwise negative Physical Exam Vitals & Measurements T: 36.6 ?C(Temporal Artery) HR: 74(Peripheral) RR: 18 BP: 114/64 SpO2: 97% HT: 65 in HT: 165 cm WT: 86 kg WT: 189.2 lb BMI: 31.59 Patient is well groomed and quite hydrated. Head is normocephalic and atraumatic. Conjunctiva is clear. Pupils are symmetric. Extraocular muscles are intact, but there is rotatory nystagmus to the left, nothing to the right. It does recreate her symptoms of discomfort and mild nausea. Oropharynx is pink and moist. TMs are both clear. Hearing is grossly normal. Neck is supple. No adenopathy. No respiratory distress. Skin is warm and dry, moderately saez. Patient is very pleasant and insightful. She ambulates with a slow metatical gait. No discrete ataxia. No tremors. Assessment/Plan 1. Atypical migraine (G43.009: Migraine without aura, not intractable, without status migrainosus) Possibility of an atypical migraine although more likely related to a viral labyrinthitis. May continue with Tylenol as needed 2. Vertigo (R42: Dizziness and giddiness) Very likely patient is having vestibular neuritis viral in origin primarily to the left-hand side. She is agreeable to a trial of continuing meclizine 3 times daily and add diazepam if necessary for severe dizziness. We did discuss CAwthorne's and [place]Hall[place] maneuvers. Instructed to let me know next week if needing formal physical therapy assessment. Ordered: diazepam, 2 mg = 1 tab(s), Oral, BID, rn severe vertigo, sedation warning, # 10 tab(s), Refills(s) 0, Pharmacy: [facility], 165, cm, 12/13/23 10:32:00 EDT, Height/Length Dosing, 86, kg, 12/13/23 10:32:00 EDT, Weight Dosing 3. Essential hypertension (I10: Essential (primary) hypertension) The importance of the following were all reviewed with the patient: -Take Rx(s )as prescribed. There are simple Lifestyle Modifications that you can do to reduce your blood pressure. -Weight Reduction -Follow the DASH eating plan. More information about this eating plan can be found here: https://www.nhlbi.ni h.gov/health/health- topics/topics/dash -Reduce Sodium (Salt) Intake to 2000mg per day. -Use Moderation when consuming alcohol. - To improve your health we recommend increasing your level of moderate exercise to at least 2.5 hrs per week. For more information, please visit the CDC Exercise and Fitness Recommendations at www.cdc.gov/physical activity/basics/inde x.htm 4. Class 1 obesity due to excess calories in adult (E66.09: Other obesity due to excess calories) The standard range for ages 18 and older is >=18.5 and < 25 kg/m2. Your BMI today was above this range, this falls in the overweight to obese category and there are medical benefits to weight loss. We can offer counselling, referral, and/or medical support in addressing this problem. Your BMI and weight management will be followed at subsequent visits. 5. BMI 31.0-31.9,adult (Z68.31: Body mass index [BMI] 31.0-31.9, adult) See #4 Orders: meclizine, 25 mg = 1 tab(s), Oral, TID, PRN for dizziness, prn vertigo, X 3 day(s), # 15 tab(s), Refills(s) 0, Pharmacy: [facility], 165, cm, 12/13/23 10:32:00 EDT, Height/Length Dosing, 86, kg, 12/13/23 10:32:00 EDT, Weight Dosing Portions of this record may have been created with voice recognition artificial intelligence software, specifically Coferon, TripFab and or Vuze. Substitutions may have occurred due to the inherent limitations of voice recognition and artificial intelligence software. (more content not included)... Normal [facility] Comment on above: Result Comment: Elec tronically Signed By: KIP MARTE, Eldon\.br\Date and Time Signed: 12/13/23 11:04 EDT C Urineon 12-12-2023 Bacteria identified Cx Nom (U) Microbiology PROCEDURE: Urine Culture [R1] SOURCE: U CleanCatch BODY SITE: COLLECTED DATE/TIME: 12/10/2023 11:16 EDT RECEIVED DATE/TIME: 12/10/2023 15:57 EDT START DATE/TIME: 12/10/2023 15:57 EDT FREE TEXT SOURCE: Mckenna Murphy, Matias Andres M.D., Matias Baugh FINAL REPORTS Final Report [] Verified Date/Time: 12/12/2023 07:19 EDT <10,000 cfu/ml Mixed skin contaminants Performing Locations R1: This test was performed at: [facility], [address] [place] [address], [id number] , [place], Normal [facility] Comment on above: Performed By: #### 2 [id number] #### [facility] [address] [place] [address] B hCG Qualon 12-10-2023 Beta HCG ( test) Ql Negative Normal [facility] Comment on above: Performed By: #### 2 [id number] #### [facility] [address] [place] [address] BB Draw & Holdon 12-10-2023 BB D&H Sample drawn for Blood Ba Normal [facility] Comment on above: Performed By: #### 1 [id number] #### [facility] [address] [place] [address] CBC w/ Auto Diffon 4 Basophils/100 WBC (Bld) 0.6 % Normal 0.0-2.0 [facility] Comment on above: Performed By: #### 2 [id number] #### [facility] [address] [place] [address] Basophils/Leukocyte s Auto (Bld) [Pure # fraction] 0.1 E9/L Normal 0.0-0.2 [facility] Comment on above: Performed By: #### 2 [id number] #### [facility] [address] [place] [address] Eosinophils (Bld) [#/Vol] 0.1 E9/L Normal 0.0-0.5 [facility] Comment on above: Performed By: #### 2 [id number] #### [facility] [address] [place] [address] Eosinophils/100 WBC (Bld) 1.7 % Normal 0.0-8.0 [facility] Comment on above: Performed By: #### 2 [id number] #### [facility] [address] [place] [address] Erythrocyte distribution width (RBC) [Ratio] 13.2 % Normal 10.9-14.2 [facility] Comment on above: Performed By: #### 2 [id number] #### [facility] [address] [place] [address] Hematocrit (Bld) [Volume fraction] 44.9 % Normal 34.0-46.0 [facility] Comment on above: Performed By: #### 2 [id number] #### [facility] [address] [place] [address] Hemoglobin (Bld) [Mass/Vol] 15.5 g/dL Normal 12.0-16.0 [facility] Comment on above: Performed By: #### 2 [id number] #### [facility] [address] [place] [address] Lymphocytes (Bld) [#/Vol] 2.2 E9/L Normal 1.0-4.0 [facility] Comment on above: Performed By: #### 2 [id number] #### [facility] [address] [place] [address] Lymphocytes/100 WBC (Bld) 26.7 % Normal 14.0-50.0 [facility] Comment on above: Performed By: #### 2 [id number] #### [facility] [address] [place] [address] MCH (RBC) [Entitic mass] 33.4 pg Normal 27.0-34.0 [facility] Comment on above: Performed By: #### 2 [id number] #### [facility] [address] [place] [address] MCHC (RBC) [Mass/Vol] 34.6 g/dL Normal 31.4-36.0 [facility] Comment on above: Performed By: #### 2 [id number] #### [facility] [address] [place] [address] MCV (RBC) [Entitic vol] 96.6 fL Normal 80.0-100.0 [facility] Comment on above: Performed By: #### 2 [id number] #### [facility] [address] [place] [address] Monocytes (Bld) [#/Vol] 0.8 E9/L Normal 0.2-1.0 [facility] Comment on above: Performed By: #### 2 [id number] #### [facility] [address] [place] [address] Neutrophils (Bld) [#/Vol] 5.2 E9/L Normal 2.0-7.5 [facility] Comment on above: Performed By: #### 2 [id number] #### [facility] [address] [place] [address] Neutrophils/100 WBC (Bld) 61.9 % Normal 36.0-75.0 [facility] Comment on above: Performed By: #### 2 [id number] #### [facility] [address] [place] [address] Platelet 315.0 E9/L Normal 150.0-500.0 [facility] Comment on above: Performed By: #### 2 [id number] #### [facility] [address] [place] [address] Platelet mean volume (Bld) [Entitic vol] 7.8 fL Normal 6.4-10.8 [facility] Comment on above: Performed By: #### 2 [id number] #### [facility] [address] [place] [address] RBC (Bld) [#/Vol] 4.7 E12/L Normal 4.3-5.9 [facility] Comment on above: Performed By: #### 2 [id number] #### [facility] [address] [place] [address] WBC corrected for nucl RBC Auto (Bld) [#/Vol] 8.3 E9/L Normal 4.0-11.0 [facility] Comment on above: Performed By: #### 2 [id number] #### [facility] [address] [place] [address] CHEMISTRYOrdered By: SYSTEM SYSTEM on 12-10-2023 Albumin [Mass/Vol] 4.9 g/dL Normal 3.3 - 5.0 gm/dL R emisol Chem Albumin/Globulin [Mass ratio] 2.2 {ratio} Normal 1.1 - 2.2 Remisol Chem ALP [Catalytic activity/Vol] 58 [iU]/d Normal 21 - 98 Int._Unit/L Remisol Chem ALT No additional P-5'-P [Catalytic activity/Vol] 14 [iU]/d Normal 6 - 46 Int._Unit/L Remisol Chem Anion gap [Moles/Vol] 12 mmol/L Normal 6 - 16 mEq/L Remisol Chem AST [Catalytic activity/Vol] 21 [iU]/d Normal 5 - 43 Int._Unit/L Remisol Chem Bilirubin [Mass/Vol] 0.5 mg/dL Normal 0.0 - 1.1 mg/dL Rem[facility] Chem Calcium [Mass/Vol] 9.7 mg/dL Normal 8.9 - 11.1 mg/dL Remisol Chem Chloride [Moles/Vol] 102 mmol/L Normal 101 - 111 mmol/L Remisol Chem CO2 [Moles/Vol] 29 mmol/L Normal 21 - 31 mmol/L Remis ol Chem Creatinine [Mass/Vol] 0.8 mg/dL Normal 0.5 - 1.3 mg/dL Remisol Chem eGFR 93 mL/min/1.73 m2 Normal >=59mL/min/1.73 m2 Remisol Chem Globulin (S) [Mass/Vol] 2.2 g/dL Normal 1.4 - 4.0 gm/dL Remisol Chem Glucose [Mass/Vol] 86 mg/dL Normal 55 - 199 mg/dL Re misol Chem Potassium [Moles/Vol] 4.6 mmol/L Normal 3.5 - 5.3 mmol/L Remisol Chem Protein [Mass/Vol] 7.1 g/dL Normal 6.0 - 7.8 gm/dL R emisol Chem Sodium [Moles/Vol] 138 mmol/L Normal 135 - 145 mmol/L Remisol Chem Troponin HS 2.40 pg/mL Low 10.10 - 27.10 pg/mL [facility] Comment on above: Interpretive Data: T he 95% CI (Confidence Interval) PPV (Positive Predictive Value) for myocardial infarction in females is 38 pg/mL, in males 51 pg/mL. The results should be used in conjunction with clinical conditions of myocardial infarction. (Access High Sensitivity Troponin I Instructions For Use, Maycol Jhoana, January 2018) Urea nitrogen [Mass/Vol] 7 mg/dL Normal 5 - 21 mg/dL Remisol Chem Urea nitrogen/Creatinine [Mass ratio] 9 mg/mg Low 10 - 20 [facility] CHEMISTRYOrdered By: Tejas ROP User on 12-10-2023 Glucose [Mass/Vol] 83 mg/dL Normal 55 - 99 mg/dL FT C POC Subsection POC Device SN [id number] Invalid Interpretation Code [facility] POC Subsection POC User ID [id number] 1 Invalid Interpretation Code [facility] POC Subsection POC Username GENESIS MERIDA Invalid Interpretation Code [facility] POC Subsection CMPon 12-10-2023 Albumin [Mass/Vol] 4.9 g/dL Normal 3.3-5.0 [facility] Comment on above: Performed By: #### 2 [id number] #### [facility] [address] [place] [address] Albumin/Globulin (S) [Mass conc ratio] 2.2 Normal 1.1-2.2 [facility] Comment on above: Performed By: #### 2 [id number] #### [facility] [address] [place] [address] ALP [Catalytic activity/Vol] 58 Int._Unit/L Normal 21-98 [facility] Comment on above: Performed By: #### 2 [id number] #### [facility] [address] [place] [address] ALT No additional P-5'-P [Catalytic activity/Vol] 14 Int._Unit/L Normal 6-46 [facility] Comment on above: Performed By: #### 2 [id number] #### [facility] [address] [place] [address] Anion gap [Moles/Vol] 12 mmol/L Normal 6-16 [facility] Comment on above: Performed By: #### 2 [id number] #### [facility] [address] [place] [address] AST [Catalytic activity/Vol] 21 Int._Unit/L Normal 5-43 [facility] Comment on above: Performed By: #### 2 [id number] #### [facility] [address] [place] [address] Bilirubin [Mass/Vol] 0.5 mg/dL Normal 0.0-1.1 [facility] Comment on above: Performed By: #### 2 [id number] #### [facility] [address] [place] [address] Calcium [Mass/Vol] 9.7 mg/dL Normal 8.9-11.1 [facility] Comment on above: Performed By: #### 2 [id number] #### [facility] [address] [place] [address] Chloride [Moles/Vol] 102 mmol/L Normal 101-111 [facility] Comment on above: Performed By: #### 2 [id number] #### [facility] [address] [place] [address] CO2 [Moles/Vol] 29 mmol/L Normal 21-31 [facility] Comment on above: Performed By: #### 2 [id number] #### [facility] [address] [place] [address] Creatinine [Mass/Vol] 0.8 mg/dL Normal 0.5-1.3 [facility] Comment on above: Performed By: #### 2 [id number] #### [facility] [address] [place] [address] Globulin (S) [Mass/Vol] 2.2 g/dL Normal 1.4-4.0 [facility] Comment on above: Performed By: #### 2 [id number] #### [facility] [address] [place] [address] Glucose [Mass/Vol] 86 mg/dL Normal 55-199 [facility] Comment on above: Performed By: #### 2 [id number] #### [facility] [address] [place] [address] Potassium [Moles/Vol] 4.6 mmol/L Normal 3.5-5.3 [facility] Comment on above: Performed By: #### 2 [id number] #### [facility] [address] [place] [address] Protein [Mass/Vol] 7.1 g/dL Normal 6.0-7.8 [facility] Comment on above: Performed By: #### 2 [id number] #### [facility] [address] [place] [address] Sodium [Moles/Vol] 138 mmol/L Normal 135-145 [facility] Comment on above: Performed By: #### 2 [id number] #### [facility] [address] [place] [address] Urea nitrogen [Mass/Vol] 7 mg/dL Normal 5-21 [facility] Comment on above: Performed By: #### 2 [id number] #### [facility] [address] [place] [address] Urea nitrogen/Creatinine [Mass ratio] 9 No Units Low 10-20 [facility] Comment on above: Performed By: #### 2 [id number] #### [facility] [address] [place] [address] COAGULATIONOrdered By: Graham wisdom Erick on 12-10-2023 aPTT Coag (PPP) [Time] 34.0 s Normal 25.1 - 36.5 second(s) [facility] Auto Coag Comment on above: Interpretive Data: P arameter 15 days - 4 weeks 1 - 5 months 6 - 11 months 1 - 5 years 6 - 10 years 11 - 17 years PTT Mean: 35.4 (27.6-45.6) Mean: 33.5 (24.8-40.7) Mean: 32.4 (25.1-40.7) Mean: 31.6 (24.0-39.2) Mean: 31.6 (26.9-38.7) Mean: 31.0 (24.6-38.4) Pediatric Reference ranges were obtained from a study by veronica Paulino al. prepared from 1437 samples obtained at 7 different centers using the same coagulation reagent and instrumentation as [facility]. Currently there are no coagulation studies available worldwide for children to 14 days, and no normal ranges. Heparin therapeutic range (represented by Anti-Factor Xa activity of 0.2 - 0.4 U/mL) corresponds to PTT of 56.6 - 109.0 sec. INR Coag (PPP) [Relative time] 1.10 {INR} Invalid Interpretation Code [facility] Auto Coag Comment on above: Interpretive Data: I NR results are specifically intended to assess patients stabilized on long-term Anticoagulation therapy suggested INR s Less Intensive Anticoagulation 2.0 3.0 Conventional Range 3.0 4.5 PT Coag (PPP) [Time] 12.3 s Normal 9.4 - 12.5 second(s) [facility] Auto Coag Comment on above: Interpretive Data: 1 5 days - 4 weeks 1 - 5 months 6 -11 months 1-5 years 6-10 years 11 -17 years Mean: 11.2 (9.5-12.6) Mean: 11.0 (9.7-12.8) Mean: 11.0 (9.8-13.0) Mean: 11.3 (9.9-13.4) Mean: 11.7 (10.0-14.6) Mean: 11.8 (10.0 - 14.1) Pediatric Reference ranges were obtained from a study by veronica Paulino al. prepared from 1437 samples obtained at 7 different centers using the same coagulation reagent and instrumentation as [facility]. Currently there are no coagulation studies available worldwide for children to 14 days, and no normal ranges. CT Head or Brain w/o Contras ton 12-10-2023 CT Head or Brain w/o Contrast Exam Date/Time: 12/10/2023 08:31 EDT Reason for Exam: Neuro deficit, acute, stroke suspected;Stroke Report IMPRESSION: NEGATIVE CT SCAN OF THE BRAIN. NO EVIDENCE OF INTRACRANIAL HEMORRHAGE. CLINICAL HISTORY: Stroke, Neuro deficit, acute, stroke suspected. Headache. Dizziness. Trouble focusing. Staggering gait. COMMENT: Unenhanced images were obtained. The ventricles and basal cisterns and cortical sulci appear normal. There is no mass effect nor midline shift. No abnormal attenuation within the brain is noted. There is no evidence of intracranial hemorrhage nor extra-axial hematoma. No mass lesion is evident. No skull fracture is noted. All CT scans at this facility use dose modulation, iterative reconstruction, and/or weight based dosing when appropriate to reduce radiation dose to as low as reasonably achievable. Ordering Provider: Matias Andres FINAL REPORT Dictated: 12/10/2023 8:35 am Rony Kinney M.D. Signed (Electronic Signature): 12/10/2023 8:35 am Signed by: Rony Kinney M.D. Transcribed by: MADELINE Technologist: MEGAN Brooks 12/10/2023 08:33 am EDT, Rony Kinney M.D. neg for bleed. Normal [facility] Capillary Glucose POCon Glucose [Mass/Vol] 83 mg/dL Normal 55-99 [facility] Comment on above: Performed By: #### 2 [id number] #### [facility] [address] [place] [address] ED Clinical Summaryon 2023 ED Clinical Summary ED Clinical Summary [address] [address] ED Clinical Summary Person Information Name: VIVIANE TERESA [facility] Age: 43 Years : 1980 Sex: Female Language: Sierra Leonean PCP: Eldon SHIN MD Marital Status: Phone: [phone] Visit Id: Visit Reason: Headache; Nausea; Potential stroke; stroke like symptoms Speciality: Acuity: 2 Enc Type: Emergency Med Service: Emergency Arrival: 12/10/2023 08:10:43 Discharge: 12/10/2023 11:56:01 LOS: 000 03:46 Checkin: 12/10/2023 08:10:43 Checkout: 12/10/2023 11:56:01 Dispo Type: Home (Routine DC) EVENTS: Event Name Event Status Request Date/Time Start Date/Time Complete Date/Time Arrive Complete 12/10/2023 08:10:43 12/10/2023 08:10:43 12/10/2023 08:10:43 Document Home Meds Request 12/10/2023 08:10:43 Triage Complete 12/10/2023 08:10:43 12/10/2023 08:43:57 12/10/2023 08:43:57 Dr Exam Complete 12/10/2023 08:17:10 12/10/2023 08:17:10 12/10/2023 08:17:10 Registration Complete 12/10/2023 08:17:10 12/10/2023 08:18:51 12/10/2023 08:27:57 Dr Exam Complete 12/10/2023 08:17:21 12/10/2023 08:17:21 12/10/2023 08:17:21 NPO Request 12/10/2023 08:18:27 Pending Labs Complete 12/10/2023 08:18:27 12/10/2023 11:30:56 Blood Collect Request 12/10/2023 08:18:27 Lab Complete 12/10/2023 08:18:27 12/10/2023 08:47:27 Patient Care Request 12/10/2023 08:18:27 CT Complete 12/10/2023 08:18:27 12/10/2023 08:22:09 12/10/2023 08:31:11 X-Ray Complete 12/10/2023 08:18:27 12/10/2023 08:33:26 12/10/2023 08:42:55 RT Request 12/10/2023 08:18:27 RR Stroke Request 12/10/2023 08:18:43 Bed Assign Complete 12/10/2023 08:18:51 12/10/2023 08:18:51 12/10/2023 08:18:51 RN Exam Complete 12/10/2023 08:18:51 12/10/2023 08:49:38 12/10/2023 08:49:38 Meds Admin Complete 12/10/2023 08:19:55 12/10/2023 08:41:57 Pending Labs Complete 12/10/2023 08:26:06 12/10/2023 08:26:06 12/10/2023 08:47:27 Lab Complete 12/10/2023 08:26:06 12/10/2023 08:26:06 12/10/2023 08:47:27 Reg Complete Request 12/10/2023 08:27:57 Reg Bed Request Complete 12/10/2023 08:27:58 12/10/2023 08:27:58 12/10/2023 08:27:58 Pending Labs Complete 12/10/2023 08:33:33 12/10/2023 08:33:33 12/10/2023 08:33:33 EKG Complete 12/10/2023 08:41:12 12/10/2023 08:57:28 Wet Read Request 12/10/2023 08:42:55 Isolation Screening Request 12/10/2023 08:43:58 RR Stroke Request 12/10/2023 08:49:39 Meds Admin Complete 12/10/2023 09:53:37 12/10/2023 10:08:01 Pending Labs Collected 12/10/2023 11:30:56 12/10/2023 11:30:56 Lab Collected 12/10/2023 11:30:56 12/10/2023 11:30:56 Discharge Complete 12/10/2023 11:45:07 12/10/2023 11:56:08 12/10/2023 11:56:08 Transfer Complete 12/10/2023 11:56:08 12/10/2023 11:56:08 12/10/2023 11:56:08 ADDRESS: [address] [place] [phone] PHYS DOC NOTES: MEDICAL INFORMATION: Prescriptions Given: New Medications [facility], [address] [place] [id number], [phone] meclizine (meclizine 25 mg Tab) 1 Tablets By Mouth 3 times a day as needed for dizziness for 3 Days. Refills: 0. ondansetron (Zofran ODT 4 mg Tab-Dis) 1 Tablets By Mouth 3 times a day. Refills: 0. Medications to Continue with No Changes Other Medications bifidobacterium infantis (Align 4 mg oral capsule) 1 Capsules By Mouth every day. Take after completing the Antibiotics course. Refills: 0. buPROPion (buPROPion 300 mg/24 hours ER Tab) 1 Tablets By Mouth every day. Refills: 3. calcium citrate 500 Milligram By Mouth 3 times a day. cetirizine (ZyrTEC 10 mg Tab) 1 Tablets By Mouth every day. cholecalciferol (Vitamin D3 1000 intl units oral capsule) 5 Capsules By Mouth every day. doxepin (doxepin 10 mg Cap) 1-2 cap(s) orally at bedtime for insomnia. Refills: 5. hydrochlorothiazide (hydrochlorothiazide 12.5 mg Cap) 1 Capsules By Mouth every day for 90 Days. Refills: 3. metformin (MetFORMIN (Eqv-Glucophage XR) 500 mg oral tablet, extended release) 1 tab(s) po qam, 2 tabs po qpm. Refills: 1. multivitamin with minerals (Celebrate Multivitamin oral tablet, chewable) 1 Tablets Chewed 2 times a day. naproxen (naproxen 500 mg Tab) 1 Tablets By Mouth 2 times a day. Take one tab by mouth two times a day. Refills: 0. phentermine (phentermine 37.5 mg Tab) 1 Tablets By Mouth every day. 31.7 BMI before breakfast. Refills: 0. polyethylene glycol 3350 (Miralax 17 gram packet) 17 Gram By Mouth every day. dissolve in water before taking. potassium chloride (potassium chloride 20 mEq ER Tab) 1 Tablets By Mouth every day. Refills: 1. psyllium (Metamucil 525 mg oral capsule) 2 Capsules By Mouth every day. Take 2 hour apart from the other medications with at least 8 ounces of water. Refills: 1. PATIENT EDUCATION INFORMATION: Instructions: Vertigo Follow up: With: Address: When: Eldon SHIN [address] [place], [place] [id number] [employer] (1) In 3 days 12/13/2023 DIAGNOSIS: Headache; Vertigo Normal [facility] ED Note-Physicianon 12-10-19 ED Note-Physician ED Note-Physician Basic Information Time Seen: Dean Gordon PA-C 12/10/2023 08:17 Chief Complaint c/o awakening with a headache, top back of head, c/o inablility to focus , nausea, feeling funny onset at 0720, coworker states she was holding onto things to walk, keeping eyes closed History of Present Illness 43-year-old female comes to the ED for evaluation of dizziness. Patient states she awoke this morning with a generalized headache. Throughout the morning she then developed progressive symptoms with lightheadedness, bilateral blurry vision and a room spinning dizziness. 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 She was noted by coworkers to have some ataxia and is brought to the ED for further evaluation. Upon initial evaluation she is laying still in bed with eyes closed. She complains of binocular blurry vision. No loss of vision. She does complain of a mild associated headache, not the worst headache of her life. Not of sudden onset. No neck chest back or abdominal pain. No prior treatments. No trauma. Review of Systems A 10 point review of systems is negative except as noted above. Medical and Surgical History: Reviewed and noted Social history: Lives at home Tobacco: Denies Physical Exam Vitals & Measurements T: 36.3 ?C(Oral) HR: 92(Monitored) RR: 20 BP: 145/86 SpO2: 100% HT: 165.1 cm WT: 85.3 kg BMI: 31.29 Nurses notes and vital signs reviewed and patient is not hypoxic. General: Patient is lying supine in bed with eyes closed Skin: Warm, dry, no pallor noted. Head: Atraumatic. Neck: No JVD. Eye: Normal conjunctiva. Pupils are equal and reactive. Brisk horizontal nystagmus Ears, Nose, Mouth, and Throat: Moist mucous membranes Cardiovascular: Strong distal pulses. Chest wall: Respiratory: Respirations are nonlabored. Back: Normal range of motion, no CVA tenderness. Musculoskeletal: Normal ROM with no gross deformity. Gastrointestinal: Soft and nontender. Urological: Neurological: Awake and alert. Monocular blurry vision but no loss of vision. No limb ataxia. No facial asymmetry. Speech is clear and appropriate. NIHSS is 0 performed at 0817 Psychiatric: Cooperative. Medical Decision Making Patient presents with mild headache with associated vertiginous dizziness. She is resting still in bed trying not to move. She complains of binocular blurry vision but no loss of vision. She has no limb ataxia. NIHSS 0, not a tPA candidate due to low NIH score and that she awoke with symptoms today with her headache. Laboratory studies reviewed and noted. EKG shows no ischemic changes. CT of the brain reviewed by radiologist, no acute findings. The patient was treated here with IV fluids Benadryl meclizine and Toradol. On repeat evaluation she feels much improved. She is now resting in bed with her eyes closed looking around the room and conversing well. She was ambulated here by nursing and did well, no residual ataxia or weakness. Results were discussed with patient. Overall her workup is most consistent with peripheral vertigo. However, given her presenting symptoms did offer admission for formal neurological consultation and MRI scans. Patient was to be discharged home at this time which is reasonable given her workup and low risk stratification. She is discharged home with PCP follow-up and meclizine. Patient was encouraged to return to the ED if symptoms worsen or change. Assessment/Plan Headache (R51.9: Headache, unspecified) Vertigo (R42: Dizziness and giddiness) Orders: diphenhydrAMINE, 25 mg = 0.5 mL, Injection, IV Push, Once, Stop date 12/10/23 8:19:00 EDT, STAT, Start date 12/10/23 8:19:00 EDT, 12/10/23 8:19:00 EDT ketorolac, 30 mg = 1 mL, Injection, IV Push, Once, Stop date 12/10/23 9:53:00 EDT, STAT, Start date 12/10/23 9:53:00 EDT, 12/10/23 9:53:00 EDT meclizine, 25 mg = 2 tab(s), Tab, Oral, Once, Stop date 12/10/23 9:53:00 EDT, STAT, Start date 12/10/23 9:53:00 EDT, 12/10/23 9:53:00 EDT meclizine, 25 mg = 1 tab(s), Oral, TID, PRN for dizziness, X 3 day(s), # 15 tab(s), Refills(s) 0, Pharmacy: [facility], 165.1, cm, 12/10/23 8:43:00 EDT, Height/Length Dosing, 85.3, kg, 12/10/23 8:43:00 EDT, Weight Dosing ondansetron, 4 mg = 1 tab(s), Oral, TID, # 15 tab(s), Refills(s) 0, Pharmacy: [facility], 165.1, cm, 12/10/23 8:43:00 EDT, Height/Length Dosing, 85.3, kg, 12/10/23 8:43:00 EDT, Weight Dosing Medications Administered Given diphenhydrAMINE 50 mg/mL Inj, 25 mg, IV Push ketorolac 30 mg/mL Inj 1 mL, 30 mg, IV Push meclizine 12.5 mg Tab, 25 mg, Oral Disposition Plan Patient Discharge Condition Disposition: Discharged home Condition: Improved and stable Counseled: Patient and/or family were counseled to workup, results, treatment plan and follow-up recommendations Discharge Prescription List Prescriptions meclizine 25 mg Tab, 25 mg= 1 tab(s), Oral, TID, PRN Zofran ODT 4 mg Tab-Dis, 4 mg= 1 tab(s), Oral, TID Follow-up With When Contact Infor (more content not included)... Normal [facility] Comment on above: Result Comment: Elec tronically Signed By: Dean Gordon PA-C\.br\Date and Time Signed: 12/10/23 11:50 EDT\.br\Electronically Co-Signed By: Matias Andres M.D.\.br\Date and Time Co-Signed: 12/10/23 11:56 EDT ED Patient Summaryon 024 ED Patient Summary ED Patient Summary [place] [id number] Patient Discharge Instructions Person Information Name: VIVIANE TERESA Age: 43 Years Arrival Date: 12/10/2023 08:10:43 Discharge Diagnosis: Headache; Vertigo Primary Care Physician: Eldon SHIN MD Provider Information Primary Provider: Matias Andres M.D. Advanced Dry Drug Worker:Dean Gordon PA-C The exam and treatment you received in the Emergency Department were for an urgent problem and are not intended as complete care. It is important that you follow up with a doctor, nurse practitioner, or physician?s loan assistant for ongoing care. If your symptoms become worse or you do not improve as expected and you are unable to reach your usual health care provider, you should return to the Emergency Department. We are available 24 hours a day. MALICK VIVIANE D has been given the following list of patient education materials, prescriptions and follow-up instructions: Follow-up Instructions: With: Address: When: [place] [address] Business (1) In 3 days 12/13/2023 In the event that this physician does not participate in your insurance network, please consult with your insurance company to find a nearby participating provider. Patient Education Materials: Vertigo A MESSAGE TO ALL PATIENTS REGARDING OPIOIDS PRESCRIPTION OPIOIDS: WHAT YOU NEED TO KNOW Prescription opioids can be used to help relieve fcqzrkgi-pk-ykwsfx pain and are often prescribed following a surgery or injury, or for certain health conditions. These medications can be an important part of the treatment but also come with serious risks. It is important to work with your healthcare provider to make sure you are getting the safest, most effective care. WHAT ARE THE RISKS AND SIDE EFFECTS OF OPIOID USE? Prescription opioids carry serious risks of addiction and overdose, especially with prolonged use. An opioid overdose, often marked by slowed breathing, can cause sudden . The use of prescription opioids can have a number of side effects as well, even when taken as directed: ? Tolerance?meaning you might need to take more of the medication for the same pain relief ? Physical dependence?meaning you have symptoms of withdrawal when a medication is stopped ? Increased sensitivity to pain ? Constipation ? Nausea, vomiting, and dry mouth ? Sleepiness and dizziness ? Confusion ? Depression ? Low levels of testosterone that can result in lower sex drive, energy, and strength ? Itching and sweating RISKS ARE GREATER WITH: ? History of drug misuse, substance use disorder, or overdose ? Mental health conditions (such as depression or anxiety) ? Sleep apnea ? Older age (65 years and older) ? Avoid alcohol while taking prescription opioids. Also, unless specifically advised by your health care provider, medications to avoid include: ? Benzodiazepines (such as Xanax or Valium) ? Muscle relaxants (such as Soma or Flexeril) ? Hypnotics (such as Ambien or Lunesta) ? Other prescription opioids KNOW YOUR OPTIONS Talk to your health care provider about ways to manage your pain that don?t involve prescription opioids. Some of these options may actually work better and have fewer risks and side effects. Options may include: ? Pain relievers such as acetaminophen, ibuprofen, and naproxen ? Some medication that are also used for depression or seizures ? Physical therapy and exercise ? Cognitive behavioral therapy, a psychological, goal-directed approach, in which patients learn how to modify physical, behavioral, and emotional triggers of pain and stress. IF YOU ARE PRESCRIBED OPIOIDS FOR PAIN: ? Never take opioids in greater amounts or more often than prescribed. ? Follow up with your primary health care provider. o Work together to create a plan on how to manage your pain. o Talk about ways to help manage your pain that don?t involve prescription opioids. o Talk about any and all concerns and side effects. ? Help prevent misuse and abuse o Never sell or share prescription opioids. o Never use another person?s prescription opioids. ? Store prescription opioids in a secure place and out of reach of others (this may include visitors, children, friends, and family). ? Safely dispose of unused prescription opioids: Find your community drug take-back program or your pharmacy mail-back program, or flush them down the toilet, following guidance from the Food and Drug Administration (www.fda.gov/Drugs/R esourcesForYou). ? Visit www.cdc.gov/drugover dose to learn about the risks of opioids abuse and overdose. ? If you believe you may be struggling with addiction, tell your health care transition mgr and ask for guidance or call [facility]S National Helpline at 8-440-240-Edupath. Lazarus Effect (more content not included)... Normal [facility] HEMATOLOGYOrdered By: SYSTEM SYSTEM on 12-10-2023 Basophils/100 WBC (Bld) 0.6 % Normal 0.0 - 2.0 % Remisol Heme Basophils/Leukocyte s Auto (Bld) [Pure # fraction] 0.1 E9/L Normal 0.0 - 0.2 E9/L Remisol Heme Eosinophils (Bld) [#/Vol] 0.1 E9/L Normal 0.0 - 0.5 E9/L Remisol Heme Eosinophils/100 WBC (Bld) 1.7 % Normal 0.0 - 8.0 % Remisol Heme Erythrocyte distribution width (RBC) [Ratio] 13.2 % Normal 10.9 - 14.2 % Remisol Heme Hematocrit (Bld) [Volume fraction] 44.9 % Normal 34.0 - 46.0 % Remisol Heme Hemoglobin (Bld) [Mass/Vol] 15.5 g/dL Normal 12.0 - 16.0 gm/dL Remisol Heme Lymphocytes (Bld) [#/Vol] 2.2 E9/L Normal 1.0 - 4.0 E9/L Remisol Heme Lymphocytes/100 WBC (Bld) 26.7 % Normal 14.0 - 50.0 % Remisol Heme MCH (RBC) [Entitic mass] 33.4 pg Normal 27.0 - 34.0 pg Remisol Heme MCHC (RBC) [Mass/Vol] 34.6 g/dL Normal 31.4 - 36.0 gm/dL Remisol Heme MCV (RBC) [Entitic vol] 96.6 fL Normal 80.0 - 100.0 fL Remisol Heme Monocytes (Bld) [#/Vol] 0.8 E9/L Normal 0.2 - 1.0 E9/L Remisol Heme Monocytes/100 WBC (Bld) 9.1 % Normal 4.0 - 14.0 % Remisol Heme Neutrophils (Bld) [#/Vol] 5.2 E9/L Normal 2.0 - 7.5 E9/L Remisol Heme Neutrophils/100 WBC (Bld) 61.9 % Normal 36.0 - 75.0 % Remisol Heme Platelet 315.0 E9/L Normal 150.0 - 500.0 E9/L Remiso l Heme Platelet mean volume (Bld) [Entitic vol] 7.8 fL Normal 6.4 - 10.8 fL Remisol Heme RBC (Bld) [#/Vol] 4.7 E12/L Normal 4.3 - 5.9 E12/L Re misol Heme WBC corrected for nucl RBC Auto (Bld) [#/Vol] 8.3 E9/L Normal 4.0 - 11.0 E9/L Remisol Heme PT & PTTon 12-10-2023 aPTT Coag (PPP) [Time] 34.0 second(s) Normal 25.1-36.5 [facility] Comment on above: Result Comment: Para meter 15 days - 4 weeks 1 - 5 months 6 - 11 months 1 - 5 years 6 - 10 years 11 - 17 years PTT Mean: 35.4 (27.6-45.6) Mean: 33.5 (24.8-40.7) Mean: 32.4 (25.1-40.7) Mean: 31.6 (24.0-39.2) Mean: 31.6 (26.9-38.7) Mean: 31.0 (24.6-38.4) Pediatric Reference ranges were obtained from a study by veronica Paulino al. prepared from 1437 samples obtained at 7 different centers using the same coagulation reagent and instrumentation as [facility]. Currently there are no coagulation studies available worldwide for children to 14 days, and no normal ranges. Heparin therapeutic range (represented by Anti-Factor Xa activity of 0.2 - 0.4 U/mL) corresponds to PTT of 56.6 - 109.0 sec. Performed By: #### 1 [id number] #### [facility] [address] [place] [address] INR Coag (PPP) [Relative time] 1.10 {INR} Invalid Interpretation Code [facility] Comment on above: Result Comment: INR results are specifically intended to assess patients stabilized on long-term Anticoagulation therapy suggested INR?s ?Less Intensive Anticoagulation? 2.0 ? 3.0 Conventional Range 3.0 ? 4.5 Performed By: #### 1 [id number] #### [facility] [address] [place] [address] PT Coag (PPP) [Time] 12.3 second(s) Normal 9.4-12.5 [facility] Comment on above: Result Comment: 15 d ays - 4 weeks 1 - 5 months 6 -11 months 1- 5 years 6-10 years 11 -17 years Mean: 11.2 (9.5-12.6) Mean: 11.0 (9.7-12.8) Mean: 11.0 (9.8-13.0) Mean: 11.3 (9.9-13.4) Mean: 11.7 (10.0-14.6) Mean: 11.8 (10.0 - 14.1) Pediatric Reference ranges were obtained from a study by veronica Paulino al. prepared from 1437 samples obtained at 7 different centers using the same coagulation reagent and instrumentation as [facility]. Currently there are no coagulation studies available worldwide for children to 14 days, and no normal ranges. Performed By: #### 1 [id number] #### [facility] [address] [place] [address] SEROLOGYOrdered By: Kristina Flores on 12-10-2023 Beta HCG ( test) Ql Negative (12/10/23 8:23 AM) Normal [facility] Man Sero Troponin 0 Hr.on 12-10-2023 Troponin HS 2.40 pg/mL Low 10.10-27.10 [facility] Comment on above: Result Comment: The 95% CI (Confidence Interval) PPV (Positive Predictive Value) for myocardial infarction in females is 38 pg/mL, in males 51 pg/mL. The results should be used in conjunction with clinical conditions of myocardial infarction. (Access High Sensitivity Troponin I Instructions For Use, [employer], January 2018) Performed By: #### 1 [id number] #### [facility] [address] [place] [address] UA with Cult Rflxon 12-10-19 24 Bacteria Auto Ql (U) Trace Normal Trace [facility] Comment on above: Performed By: #### 4 [id number] #### [facility] [address] [place] [address] Bilirubin Ql (U) Negative Normal Negative [facility] Comment on above: Performed By: #### 4 [id number] #### [facility] [address] [place] [address] Clarity (U) Clear Normal Clear [facility] Comment on above: Performed By: #### 4 [id number] #### [facility] [address] [place] [address] Color (U) Light-Yellow Normal Yellow [facility] Comment on above: Result Comment: Micr oscopic readings are only performed on those samples that meet specific criteria set forth by [facility]. Performed By: #### 4 [id number] #### [facility] [address] [place] [address] Epithelial cells.squamous Auto (Urine sed) [#/Area] 0-2 Invalid Interpretation Code [facility] Comment on above: Performed By: #### 4 [id number] #### [facility] [address] [place] [address] Glucose Ql (U) Negative Normal Negative [facility] Comment on above: Performed By: #### 4 [id number] #### [facility] [address] [place] [address] Hemoglobin Auto test strip (U) [Mass/Vol] Negative Normal Negative [facility] Comment on above: Performed By: #### 4 [id number] #### [facility] [address] [place] [address] Ketones Auto test strip Ql (U) Trace Abnormal Negative [facility] Comment on above: Performed By: #### 4 [id number] #### [facility] [address] [place] [address] Leukocyte esterase Auto test strip Ql (U) 25 Mary/uL Normal Negative [facility] Comment on above: Performed By: #### 4 [id number] #### [facility] [address] [place] [address] Mucus Auto Ql (U) Negative Normal Negative [facility] Comment on above: Performed By: #### 4 [id number] #### [facility] [address] [place] [address] Nitrite Auto test strip Ql (U) Negative Normal Negative [facility] Comment on above: Performed By: #### 4 [id number] #### [facility] [address] [place] [address] pH (U) 7.0 [pH] Invalid Interpretation Code 5.0-9.0 [facility] Comment on above: Performed By: #### 4 [id number] #### [facility] [address] [place] [address] Protein Ql (U) Negative Normal Negative [facility] Comment on above: Performed By: #### 4 [id number] #### [facility] [address] [place] [address] RBC Ql (U) 0-3 Normal 0-3 [facility] Comment on above: Performed By: #### 4 [id number] #### [facility] [address] [place] [address] Specific gravity (U) [Rel density] 1.007 Invalid Interpretation Code 1.005-1.030 [facility] Comment on above: Performed By: #### 4 [id number] #### [facility] [address] [place] [address] Urobilinogen (U) [Mass/Vol] Negative Normal Negative [facility] Comment on above: Performed By: #### 4 [id number] #### [facility] [address] [place] [address] WBC Auto (Urine sed) [#/Area] 6-15 Abnormal 0-5 [facility] Comment on above: Performed By: #### 4 [id number] #### [facility] [address] [place] [address] Type of Urine collection method Clean Catch Normal [facility] Comment on above: Performed By: #### 4 [id number] #### [facility] [address] [place] [address] URINALYSISOrdered By: SYSTEM SYSTEM on 12-10-2023 Bacteria Auto Ql (U) Trace /HPF Normal Trace/HPF [facility] UA Auto SS Bilirubin Ql (U) Negative Normal Negativemg/dL [facility] UA Auto SS Clarity (U) Clear (12/10/23 11:16 AM) Normal Clear [facility] UA Auto SS Color (U) Light-Yellow 1 (12/10/23 11:16 AM) Normal Yellow [facility] UA Auto SS Comment on above: Interpretive Data: M icroscopic readings are only performed on those samples that meet specific criteria set forth by [facility]. Epithelial cells.squamous Auto (Urine sed) [#/Area] 0-2 graded/HPF Invalid Interpretation Code [facility] UA Auto SS Glucose Ql (U) Negative Normal Negativemg/dL [facility] UA Auto SS Hemoglobin Auto test strip (U) [Mass/Vol] Negative Normal Negativemg/dL [facility] UA Auto SS Ketones Auto test strip Ql (U) Trace mg/dL Invalid Interpretation Code Negativemg/dL [facility] UA Auto SS Leukocyte esterase Auto test strip Ql (U) 25 Mary/uL Mary/uL Normal NegativeLeu/uL [facility] UA Auto SS Mucus Auto Ql (U) Negative Normal Negativegraded/LPF [facility] UA Auto SS Nitrite Auto test strip Ql (U) Negative Normal Negativemg/dL [facility] UA Auto SS pH (U) 7.0 *NA* (12/10/23 11:16 AM) Invalid Interpretation Code 5.0 - 9.0 [facility] UA Auto SS Protein Ql (U) Negative Normal Negativemg/dL [facility] UA Auto SS RBC Ql (U) 0-3 graded/HPF Normal 0-3graded/HPF [facility] UA Auto SS Specific gravity (U) [Rel density] 1.007 *NA* (12/10/23 11:16 AM) Invalid Interpretation Code 1.005 - 1.030 [facility] UA Auto SS Urobilinogen (U) [Mass/Vol] Negative Normal Negativemg/dL [facility] UA Auto SS WBC Auto (Urine sed) [#/Area] 6-15 graded/HPF Invalid Interpretation Code 0-5graded/HPF [facility] UA Auto SS URINALYSISOrdered By: Matias Andres on 12-10-2023 UA Spec Desc Clean Catch (12/10/23 11:16 AM) Normal [facility] UA Auto SS XR Chest Single Viewon 12-09 XR Chest Single View Exam Date/Time: 12/10/2023 08:42 EDT Reason for Exam: Chest pain Report IMPRESSION: NO EVIDENCE OF ACTIVE CHEST DISEASE. CLINICAL HISTORY: Chest pain. COMPARISON: 07/10/2017. COMMENT: AP portable. The heart is normal in size. The mediastinum is unremarkable. The lungs appear clear. No infiltration nor pleural effusion is evident. No significant change is noted when compared to the prior exam. Ordering Provider: Matias Andres FINAL REPORT Dictated: 12/10/2023 9:24 am Rony Kinney M.D. Signed (Electronic Signature): 12/10/2023 9:24 am Signed by: Rony Kinney M.D. Transcribed by: MADELINE Technologist: LARY Technical Comments Radiation Dose: Ka,r in mGy = na DAP = na Normal [facility] eGFRon 12-10-2023 eGFR 93 mL/min/1.73 m2 Normal >=59 [facility] Comment on above: Order Comment: Order added by Discern Expert. 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 Class 1 obesity due to excess calories in adult Overweight Your Care Team Attending Physician - Eldon SHIN MD Primary Care Physician - Eldon SHIN MD This Is Your Medications List doxepin (doxepin 10 mg Cap) phentermine (phentermine 37.5 mg Tab) potassium chloride (potassium chloride 20 mEq ER Tab) Contact prescribing physician if questions or concerns bifidobacterium infantis (Align 4 mg oral capsule) buPROPion (buPROPion 300 mg/24 hours ER Tab) calcium citrate cetirizine (ZyrTEC 10 mg Tab) cholecalciferol (Vitamin D3 1000 intl units oral capsule) hydrochlorothiazide (hydrochlorothiazide 12.5 mg Cap) metformin (MetFORMIN (Eqv-Glucophage XR) 500 mg oral tablet, extended release) multivitamin with minerals (Celebrate Multivitamin oral tablet, chewable) naproxen (naproxen 500 mg Tab) polyethylene glycol 3350 (Miralax 17 gram packet) psyllium (Metamucil 525 mg oral capsule) Procedures Performed Colonoscopy (10/28/2020), Cystoscopy (08/31/2020), ESWL of kidney (08/11/2020), ESWL of kidney (08/04/2020), ESWL of kidney (07/28/2020), Bariatric operative procedure (08/05/2018), right carpal tunnel release (02/05/2014), left carpal tunnel release (11/06/2013), section (02/18/2009), Arthroscopy of knee (1999), Operation on septum of nose (1997), Arthroscopy of wrist (1995), Operation on septum of nose (1995), Plastic excision of skin of abdominal wall, Removal of skin flap, tubal ligation, Vaginal hysterectomy. Discharge Vitals Heart Rate (Peripheral) 67 Respiratory Rate 16 Blood Pressure 110/74 Height 167 cm Height 66 in Weight 88.4 kg Weight 194.48 lb BMI 31.7 What to do next Scheduled Follow-Up Appointments Saturday 9:45 AM EDT With: Francisco HELTON MD Where: [facility] Normal [address] [place] [address]- \.br\ You Need to Schedule the Following Appointments\.br\ Follow Up with KIP MARTE, TYSON Briggs When: In 3 months\.br\ Where:\.br\ \.br\ Medications\.br\ What How Much When Why Instructions\.br\ New doxepin (doxepin 10 mg Cap) See instructions Refills: 5 1-2 cap(s) orally at bedtime for insomnia Pickup at [facility]\.br\ Changed phentermine (phentermine 37.5 mg Tab) 1 Tablets By Mouth Every day Overweight 31.7 BMI before breakfast Pickup at [facility]\.br\ Unchanged potassium chloride (potassium chloride 20 mEq ER Tab) 1 Tablets By Mouth Every day Pickup at [facility]\.br\ Unchanged bifidobacterium infantis (Align 4 mg oral capsule) 1 Capsules By Mouth Every day Change in bowel habits Take after completing the Antibiotics course Contact prescribing physician if questions or concerns \.br\ Unchanged buPROPion (buPROPion 300 mg/ 24 hours ER Tab) 1 Tablets By Mouth Every day Contact prescribing physician if questions or concerns \.br\ Unchanged calcium citrate 500 Milligram By Mouth 3 times a day Contact prescribing physician if questions or concerns \.br\ Unchanged cetirizine (ZyrTEC 10 mg Tab) 1 Tablets By Mouth Every day Contact prescribing physician if questions or concerns \.br\ Unchanged cholecalciferol (Vitamin D3 1000 intl units oral capsule) 5 Capsules By Mouth Every day Contact prescribing physician if questions or concerns \.br\ Unchanged hydrochlorothiazide (hydrochlorothiazide 12.5 mg Cap) 1 Capsules By Mouth Every day Duration: 90 Days Contact prescribing physician if questions or concerns \.br\ Unchanged metformin (MetFORMIN (Eqv-Glucophage XR) 500 mg oral tablet, extended release) See instructions 1 tab(s) po qam, 2 tabs po qpm Contact prescribing physician if questions or concerns \.br\ Unchanged multivitamin with minerals (Celebrate Multivitamin oral tablet, chewable) 1 Tablets Chewed 2 times a day Contact prescribing physician if questions or concerns \.br\ Unchanged naproxen (naproxen 500 mg Tab) 1 Tablets By Mouth 2 times a day Take one tab by mouth two times a day Contact prescribing physician if questions or concerns \.br\ Unchanged polyethylene glycol 3350 (Miralax 17 gram packet) 17 Gram By Mouth Every day dissolve in water before taking Contact prescribing physician if questions or concerns \.br\ Unchanged psyllium (Metamucil 525 mg oral capsule) 2 Capsules By Mouth Every day Change in bowel habits Take 2 hour apart from the other medications with at least 8 ounces of water Contact prescribing physician if questions or concerns \.br\ Pharmacy Information\.br\ [facility]: [address], [place] [id number] [phone]\.br\ Allergies\.br\ GRASS, POLLEN, TREES, WEEDS,MOLD, ANIMAL DANDER\.br\ No Known Medication Allergies\.br\ Problems\.br\ Ongoing - Any problem that you are currently receiving treatment for.\.br\ Actinic keratoses\.br\ Asthma, moderate persistent\.br\ Bilateral nephrolithiasis\.br\ BMI 31.0-31.9,adult\.br\ Chronic insomnia\.br\ Chronic seasonal allergic rhinitis\.br\ Encounter for well adult exam with abnormal findings\.br\ Essential hypertension\.br\ Essential tremor\.br\ Hypokalemia\.br\ Inflamed seborrheic keratosis\.br\ Kidney stone\.br\ Major depression in partial remission\.br\ Onychomycosis of left great toe\.br\ Personal history of gastric bypass\.br\ Postoperative malabsorption\.br\ Screening mammogram, encounter for\.br\ Urinary frequency\.br\ Historical - Any problem that you are no longer receiving treatment for.\.br\ Carpal tunnel syndrome\.br\ Depression, Mild\.br\ Dysesthesia\.br\ Frontal sinusitis\.br\ History of - section\.br\ History of - severe pre-eclampsia\.br\ Hypermenorrhea\.br\ MRSA\.br\ Obesity due to excess calories\.br\ Otalgia of right ear\.br\ Overweight\.br\ PINK EYE RIGHT\.br\ Placental abruption\.br\ Right acute serous otitis media\.br\ subconjunctive hemorrhage\.br\ Uterine rupture\.br\ Patient Survey\.br\ You may receive a survey via text or e-mail asking about your office visit. Please share your experience with us by completing your survey. We appreciate your feedback and thank you for choosing us for your care.\.br\ Education Materials\.br\ Major Depressive Disorder, Adult\.br\ Major depressive disorder (MDD) is a mental health condition. It may also be called clinical depression or unipolar depression. MDD causes symptoms of sadness, hopelessness, and loss of interest in things. These symptoms last most of the day, almost every day, for 2 weeks. MDD can also cause physical symptoms. It can interfere with relationships and with everyday activities, such as work, school, and activities that are usually pleasant.\.br\ MDD may be mild, moderate, or severe. It may be single-episode MDD, which happens once, or recurrent MDD, which may occur multiple times.\.br\ What are the causes?\.br\ The exact cause of this condition is not known. MDD is most likely caused by a combination of things, which may include:\.br\ ? \.br\ Your personality traits.\.br\ ? \.br\ Daniels or conditioned behaviors or thoughts or feelings that reinforce negativity.\.br\ ? \.br\ Any alcohol or substance misuse.\.br\ ? \.br\ Long-term (chronic) physical or mental health illness.\.br\ ? \.br\ Going through a traumatic experience or major life changes.\.br\ What increases the risk?\.br\ The following factors may make someone more likely to develop MDD:\.br\ ? \.br\ A family history of depression.\.br\ ? \.br\ Being a woman.\.br\ ? \.br\ Troubled family relationships.\.br\ ? \.br\ Abnormally low levels of certain brain chemicals.\.br\ ? \.br\ Traumatic or painful events in childhood, especially abuse or loss of a parent.\.br\ ? \.br\ A lot of stress from life experiences, such as poor living conditions or discrimination.\.br\ ? \.br\ Chronic physical illness or other mental health disorders.\.br\ What are the signs or symptoms?\.br\ The main symptoms of MDD usually include:\.br\ ? \.br\ Constant depressed or irritable mood.\.br\ ? \.br\ A loss of interest in things and activities.\.br\ Other symptoms include:\.br\ ? \.br\ Sleeping or eating too much or too little.\.br\ ? \.br\ Unexplained weight gain or weight loss.\.br\ ? \.br\ Tiredness or low energy.\.br\ ? \.br\ Being agitated, restless, or weak.\.br\ ? \.br\ Feeling hopeless, worthless, or guilty.\.br\ ? \.br\ Trouble thinking clearly or making decisions.\.br\ ? \.br\ Thoughts of suicide or thoughts of harming others.\.br\ ? \.br\ Isolating oneself or avoiding other people or activities.\.br\ ? \.br\ Trouble completing tasks, work, or any normal obligations.\.br\ Severe symptoms of this condition may include:\.br\ ? \.br\ Psychotic depression.This may include false beliefs, or delusions. It may also include seeing, hearing, tasting, smelling, or feeling things that are not real (hallucinations).\.b r\ ? \.br\ Chronic depression or persistent depressive disorder. This is low-level depression that lasts for at least 2 years.\.br\ ? \.br\ Melancholic depression, or feeling extremely sad and hopeless.\.br\ ? \.br\ Catatonic depression, which includes trouble speaking and trouble moving.\.br\ How is this diagnosed?\.br\ This condition may be diagnosed based on:\.br\ ? \.br\ Your symptoms.\.br\ ? \.br\ Your medical and mental hea [facility] Family Medicine Office/Clini c Noteon 11-29-2023 Family Medicine Office/Clinic Note Chief Complaint 3mo chk up, rf K+ and phentermine to dm/hiram History of Present Illness The patient is a 43-year-old female here for general health maintenance checkup and weight check. The patient recently exhausted her supply of phentermine she has used it consistently, reports that she did have some leftover from previous physician, therefore she did not fill the new prescription in the month of November. OARRS is up-to-date. has been experiencing sleep disturbances. She has attempted to alleviate this by increasing her melatonin dosage to 10 mg, but to no avail. She abstains from daytime napping. She does not use any caffeine in the evenings. Historically used amitriptyline but was encouraged not to take with the phentermine. She has longstanding history of mild anxiety and depression chronically using bupropion. She is doing quite well emotionally. She is leaving for [place] with her son tomorrow. Asthma has been absolutely quiet no recurrence. She follows with [facility] gastric bypass team for malabsorption. Having no dumping syndrome. Review of Systems PHQ Score Initial Depression Screen Score: 0 SCORE See HPI otherwise negative Physical Exam Vitals & Measurements HR: 67(Peripheral) RR: 16 BP: 110/74 SpO2: 97% HT: 66 in HT: 167 cm WT: 88.4 kg WT: 194.48 lb BMI: 31.7 Patient is well-woman. Head is normocephalic. Conjunctiva is clear. Pupils are symmetric. Extraocular muscles intact. Neck is supple. Lungs are clear bilaterally. Heart has a regular rate and rhythm. No murmur, gallop, or rub. Abdomen is obese with hyperactive bowel sounds, nontender. No organomegaly. Skin is moderately tanned. Patient is very pleasant and insightful. Assessment/Plan 1. Chronic seasonal allergic rhinitis (J30.2: Other seasonal allergic rhinitis) Patient may continue with antihistamines and decongestants cautiously. Avoid respiratory irritants 2. Major depression in partial remission (F32.4: Major depressive disorder, single episode, in partial remission) Patient will continue with the use of the bupropion. Suggesting added doxepin to help with insomnia at night which may be beneficial, sedation warning reviewed 3. Postoperative malabsorption (K91.2: Postsurgical malabsorption, not elsewhere classified) Continue following with the [facility] for gastric bypass management 4. Class 1 obesity due to excess calories in adult (E66.09: Other obesity due to excess calories) Patient is responding reasonably well with the phentermine at least keeping her weight in check. Understands this is a controlled substance and must handle it cautiously but we will continue to prescribe. 11/29/2023 17:20:21 I certify that I have reviewed the OARRS report and all PDMP information in this chart. 5. BMI 31.0-31.9,adult (Z68.31: Body mass index [BMI] 31.0-31.9, adult) See #4 Orders: doxepin, See Instructions, 1-2 cap(s) orally at bedtime for insomnia, # 60 cap(s), Refills(s) 5, Pharmacy: [facility], 167, cm, 11/29/23 14:58:00 EDT, Height/Length Dosing, 88.4, kg, 11/29/23 14:58:00 EDT, Weight Dosing phentermine, 37.5 mg = 1 tab(s), Oral, Daily, 31.7 BMI before breakfast, # 30 tab(s), Refills(s) 0, Pharmacy: [facility], 167, cm, 11/29/23 14:58:00 EDT, Height/Length Dosing, 88.4, kg, 11/29/23 14:58:00 EDT, Weight Dosing potassium chloride, 20 mEq = 1 tab(s), Oral, Daily, # 90 tab(s), Refills(s) 1, Pharmacy: [facility], 167, cm, 11/29/23 14:58:00 EDT, Height/Length Dosing, 88.4, kg, 11/29/23 14:58:00 EDT, Weight Dosing Portions of this record may have been created with voice recognition artificial intelligence software, specifically Coferon, Trip[employer] and or Vuze. Substitutions may have occurred due to the inherent limitations of voice recognition and artificial intelligence software. Follow-up With When Contact Information Eldon SHIN MD, FAM In 3 months Additional Instructions: Patient Education Major Depressive Disorder, Adult Problem List/Past Medical History Ongoing Actinic keratoses Asthma, moderate persistent Bilateral nephrolithiasis BMI 31.0-31.9,adult Chronic insomnia Chronic seasonal allergic rhinitis Encounter for well adult exam with abnormal findings Essential hypertension Essential tremor Hypokalemia Inflamed seborrheic keratosis Kidney stone Major depression in partial remission Onychomycosis of left great toe Personal history of gastric bypass Postoperative malabsorption Screening mammogram, encounter for Urinary frequency Historical Carpal tunnel syndrome Depression, Mild Dysesthesia Frontal sinusitis History of - section History of - severe pre-eclampsia Hypermenorrhea MRSA Obesity due to excess calories Otalgia of right ear Overweight PINK EYE RIGHT Placental abruption Right acute serous otitis media subconjunctive hemorrhage Uterine rupture Pro (more content not included)... Normal [facility] Comment on above: Result Comment: Elec tronically Signed By: KIP MARTE, Eldon\.br\Date and Time Signed: 11/29/23 17:20 EDT Patient Educationon 11-28-19 Patient Education Mental and Behavioral Health Major Depressive Disorder, Adult Major depressive disorder (MDD) is a mental health condition. It may also be called clinical depression or unipolar depression. MDD causes symptoms of sadness, hopelessness, and loss of interest in things. These symptoms last most of the day, almost every day, for 2 weeks. MDD can also cause physical symptoms. It can interfere with relationships and with everyday activities, such as work, school, and activities that are usually pleasant. MDD may be mild, moderate, or severe. It may be single-episode MDD, which happens once, or recurrent MDD, which may occur multiple times. What are the causes? The exact cause of this condition is not known. MDD is most likely caused by a combination of things, which may include: ? Your personality traits. ? Daniels or conditioned behaviors or thoughts or feelings that reinforce negativity. ? Any alcohol or substance misuse. ? Long-term (chronic) physical or mental health illness. ? Going through a traumatic experience or major life changes. What increases the risk? The following factors may make someone more likely to develop MDD: ? A family history of depression. ? Being a woman. ? Troubled family relationships. ? Abnormally low levels of certain brain chemicals. ? Traumatic or painful events in childhood, especially abuse or loss of a parent. ? A lot of stress from life experiences, such as poor living conditions or discrimination. ? Chronic physical illness or other mental health disorders. What are the signs or symptoms? The main symptoms of MDD usually include: ? Constant depressed or irritable mood. ? A loss of interest in things and activities. Other symptoms include: ? Sleeping or eating too much or too little. ? Unexplained weight gain or weight loss. ? Tiredness or low energy. ? Being agitated, restless, or weak. ? Feeling hopeless, worthless, or guilty. ? Trouble thinking clearly or making decisions. ? Thoughts of suicide or thoughts of harming others. ? Isolating oneself or avoiding other people or activities. ? Trouble completing tasks, work, or any normal obligations. Severe symptoms of this condition may include: ? Psychotic depression.This may include false beliefs, or delusions. It may also include seeing, hearing, tasting, smelling, or feeling things that are not real (hallucinations). ? Chronic depression or persistent depressive disorder. This is low-level depression that lasts for at least 2 years. ? Melancholic depression, or feeling extremely sad and hopeless. ? Catatonic depression, which includes trouble speaking and trouble moving. How is this diagnosed? This condition may be diagnosed based on: ? Your symptoms. ? Your medical and mental health history. You may be asked questions about your lifestyle, including any drug and alcohol use. ? A physical exam. ? Blood tests to rule out other conditions. MDD is confirmed if you have the following symptoms most of the day, nearly every day, in a 2-week period: ? Either a depressed mood or loss of interest. ? At least four other MDD symptoms. How is this treated? This condition is usually treated by mental health professionals, such as psychologists, psychiatrists, and clinical social workers. You may need more than one type of treatment. Treatment may include: ? Psychotherapy, also called talk therapy or counseling. Types of psychotherapy include: ? Cognitive behavioral therapy (CBT). This teaches you to recognize unhealthy feelings, thoughts, and behaviors, and replace them with positive thoughts and actions. ? Interpersonal therapy (IPT). This helps you to improve the way you communicate with others or relate to them. ? Family therapy. This treatment includes members of your family. ? Medicines to treat anxiety and depression. These medicines help to balance the brain chemicals that affect your emotions. ? Lifestyle changes. You may be asked to: ? Limit alcohol use and avoid drug use. ? Get regular exercise. ? Get plenty of sleep. ? Make healthy eating choices. ? Spend more time outdoors. ? Brain stimulation. This may be done if symptoms are very severe and other treatments have not worked. Examples of this treatment are electroconvulsive therapy and transcranial magnetic stimulation. Follow these instructions at home: Activity ? Exercise regularly and spend time outdoors. ? Find activities that you enjoy doing, and make time to do them. ? Find healthy ways to manage stress, such as: ? Meditation or deep breathing. ? Spending time in nature. ? Journaling. ? Return to your normal activities as told by your health care provider. Ask your health care provider what activities are safe for you. Alcohol and drug use ? If you drink alcohol: ? Limit how much you use to: ? 0?1 drink a day for women who are not . ? 0?2 drinks a day for men. ? Be aware of how much alcohol is in your drink. In the (more content not included)... Normal [facility] Mamm Screen w/CAD if perf and 3D Bilon 09-06-2023 MA Mamm Screen w/CAD if perf and 3D Piero Exam Date/Time: 09/04/2023 07:56 EDT Reason for Exam: Z12.31;Screening Report IMPRESSION: BIRADS 1 NEGATIVE, NORMAL INTERVAL FOLLOW-UP Follow-up: 12 MONTH RECALL Density: Heterogeneously dense. Vascular calcifications: Absent. EXAM: MA Mamm Screen w/CAD if perf and 3D Piero DATE: 09/04/2023 7:26 AM CLINICAL HISTORY: Screening, Z12.31. COMPARISONS: 04/02/2022, 09/09/2020, and 11/24/2015. TECHNIQUE: Routine full-field digital mammograms and 3D breast tomosynthesis of both breasts were obtained. FINDINGS: There are no developing masses, suspicious microcalcifications, or areas of architectural distortion identified on the current study. No significant changes are identified from the prior studies, given differences in technique and positioning. Dense Breast: Yes. CAD analysis was performed and used in the interpretation. Board Certified Radiologists. Accredited by the ACR and FDA. MAMMOGRAPHY IS VERY IMPORTANT TO YOUR HEALTH. THE CURRENT [employer] [employer] GUIDELINES RECOMMENDS ANNUAL MAMMOGRAPHY BEGINNING AT AGE 40. THIS FACILITY UTILIZES A REMINDER SYSTEM TO ENSURE ALL PATIENTS RECEIVE REMINDER NOTIFICATIONS AT THE APPROPRIATE TIME BASED ON THE RECOMMENDATIONS OF THIS EXAM. Report Ordering Provider: Eldon SHIN FINAL REPORT Dictated: 09/06/2023 3:15 pm Munir Sharif MD Signed (Electronic Signature): 09/06/2023 3:15 pm Signed by: Munir Sharif MD Transcribed by: MADELINE Technologist: ERNESTINE Assessment: BI-RADS Category 1-Negative Recommendation: Normal interval follow-up Normal [facility] Vit B1on 09-06-2023 Thiamine (Bld) [Moles/Vol] 227.8 nmol/L High 66.5-200.0 [facility] Comment on above: Result Comment: This test was developed and its performance characteristics determined by [facility]. It has not been cleared or approved by the Food and Drug Administration. Performed at: [address] [id number] MD Brian Brewster Performed By: #### 2 188518, [id number], 949213166, 8536108, 85845182, 3245687, 2761762, 13016125, 1472910, 2429226, 86783183, 3196394, 5909315 ####[facility] [address] [place] [address] Consent for Treatmenton 08-09 Consent for Treatment [id number] #1.00TIFF Normal [facility] Formson 09-04-2023 Forms [id number] #1.00TIFF Normal [facility] PTH [place] 09-04-2023 Parathyrin.intact [Mass/Vol] 16 pg/mL Invalid Interpretation Code [facility] Comment on above: Result Comment: Perf ormed at: [facility] [id number] PhD Carmen Don Performed By: #### 1 [id number] ####[facility] [address] [place] [address] CBC w/ Auto Diffon 4 Basophils/100 WBC (Bld) 0.5 % Normal 0.0-2.0 [facility] Comment on above: Performed By: #### 2 403546, 50033233, 215626978, 9450903, 27187345, 5956536, 7081124, 33486950, 4380006, 5091913, 67020484, 6833334, 8902320 ####[facility] [address] [place] [address] Basophils/Leukocyte s Auto (Bld) [Pure # fraction] 0.0 E9/L Normal 0.0-0.2 [facility] Comment on above: Performed By: #### 2 490045, 07298350, 884611101, 3642181, 25808383, 3161111, 2379179, 18183966, 0985319, 3810907, 30949304, 4494844, 1796068 ####[address] [place] [address] Eosinophils (Bld) [#/Vol] 0.0 E9/L Normal 0.0-0.5 [facility] Comment on above: Performed By: #### 2 812393, 83343675, 110356249, 6218841, 41791445, 3839227, 5297566, 57965861, 7150490, 3435698, 92465841, 4504896, 4298933 ####[address] [place] [address] Eosinophils/100 WBC (Bld) 0.4 % Normal 0.0-8.0 [facility] Comment on above: Performed By: #### 2 108970, 34376845, 661568202, 7257062, 88056206, 4790147, 4241260, 19246345, 8371162, 4686291, 97332855, 8605098, 7374913 ####[address] [place] [address] Erythrocyte distribution width (RBC) [Ratio] 13.6 % Normal 10.9-14.2 [facility] Comment on above: Performed By: #### 2 501518, 38626934, 481326630, 0698279, 71164102, 8175178, 3882514, 83015269, 8559568, 1308183, 92393962, 7715120, 1770860 ####[facility] [address] [place] [address] Hematocrit (Bld) [Volume fraction] 42.0 % Normal 34.0-46.0 [facility] Comment on above: Performed By: #### 2 869528, 32012338, 752303559, 8849382, 49176849, 4874505, 2273659, 57683184, 3205518, 2199180, 26442325, 5887335, 7136455 ####[facility] [address] [place] [address] Hemoglobin (Bld) [Mass/Vol] 13.9 g/dL Normal 12.0-16.0 [facility] Comment on above: Performed By: #### 2 051733, 78857915, 729493995, 6121264, 49835308, 2467568, 8410675, 92070818, 8046773, 1944078, 20686615, 0837147, 2675998 ####[facility] [address] [place] [address] Lymphocytes (Bld) [#/Vol] 2.0 E9/L Normal 1.0-4.0 [facility] Comment on above: Performed By: #### 2 842672, 33511695, 510047675, 1935907, 79497132, 8977685, 8160213, 44107648, 7812282, 7067536, 55156255, 8363626, 1799049 ####[address] [place] [address] Lymphocytes/100 WBC (Bld) 33.0 % Normal 14.0-50.0 [facility] Comment on above: Performed By: #### 2 125964, 84897963, 820774359, 4767456, 35083392, 6078031, 6780079, 87277420, 0162564, 7592236, 18253396, 0221702, 9233508 ####[facility] [address] [place] [address] MCH (RBC) [Entitic mass] 32.3 pg Normal 27.0-34.0 [facility] Comment on above: Performed By: #### 2 565844, 34875075, 134447235, 6180880, 62446134, 6527700, 3965792, 34636176, 8527098, 2045907, 40578794, 0221006, 6779813 ####[facility] [address] [place] [address] MCHC (RBC) [Mass/Vol] 33.2 g/dL Normal 31.4-36.0 [facility] Comment on above: Performed By: #### 2 520847, 68630988, 371046907, 6350640, 95593974, 0574435, 6000874, 91537147, 5283802, 4519801, 55379758, 9039105, 1930396 ####[address] [address] MCV (RBC) [Entitic vol] 97.3 fL Normal 80.0-100.0 [facility] Comment on above: Performed By: #### 2 873139, 82525932, 306046350, 1496099, 68664618, 3782607, 8729667, 95999920, 6060742, 8176490, 63310878, 8359103, 2592638 ####[address] [place] [address] Monocytes (Bld) [#/Vol] 0.6 E9/L Normal 0.2-1.0 [facility] Comment on above: Performed By: #### 2 905123, 65561474, 930998169, 4383427, 49762356, 1408385, 1873385, 82800964, 4265602, 2131296, 81472977, 3848268, 7761374 ####[address] [place] [address] Neutrophils (Bld) [#/Vol] 3.4 E9/L Normal 2.0-7.5 [facility] Comment on above: Performed By: #### 2 023365, 68319324, 468331756, 1695508, 99270350, 5935032, 0337514, 00944771, 0773468, 9920223, 79057416, 5079968, 3012008 ####[facility] [address] [place] [address] Neutrophils/100 WBC (Bld) 56.0 % Normal 36.0-75.0 [facility] Comment on above: Performed By: #### 2 704722, 77320920, 270115884, 9134946, 98349502, 4569373, 9443982, 15188961, 8033989, 5921739, 60968833, 7996732, 3081266 ####[facility] [address] [place] [address] Platelet 263.0 E9/L Normal 150.0-500.0 [facility] Comment on above: Performed By: #### 2 085619, 41713537, 301563628, 8309469, 52913920, 7279404, 8143170, 59526447, 1314646, 2548023, 52153238, 6126389, 2254612 ####[facility] [address] [place] [address] Platelet mean volume (Bld) [Entitic vol] 8.4 fL Normal 6.4-10.8 [facility] Comment on above: Performed By: #### 2 448632, 39745974, 040795794, 2799964, 19486449, 8044928, 9303077, 64300075, 2825372, 7024177, 29307243, 7668466, 0470708 ####[facility] [address] [place] [address] RBC (Bld) [#/Vol] 4.3 E12/L Normal 4.3-5.9 [facility] Comment on above: Performed By: #### 2 345969, 47701903, 607832944, 9508287, 59131897, 7488198, 1618844, 36039252, 2800173, 9278491, 08219802, 5806535, 4647385 ####[facility] [address] [place] [address] WBC corrected for nucl RBC Auto (Bld) [#/Vol] 6.1 E9/L Normal 4.0-11.0 [facility] Comment on above: Performed By: #### 2 879655, 92884651, 110378495, 4929637, 45817232, 8167102, 3336586, 85878083, 4404828, 7553418, 32181058, 0970327, 0955959 ####[facility] [address] [place] [address] CHEMISTRYOrdered By: SYSTEM SYSTEM on 09-03-2023 25-hydroxyvitamin D3 [Mass/Vol] 89.5 ng/mL Normal 30.0 - 100.0 ng/mL [facility] Albumin [Mass/Vol] 4.3 g/dL Normal 3.3 - 5.0 gm/dL R emisol Chem Albumin/Globulin [Mass ratio] 1.8 {ratio} Normal 1.1 - 2.2 [facility] ALP [Catalytic activity/Vol] 47 [iU]/d Normal 21 - 98 Int._Unit/L [facility] ALT No additional P-5'-P [Catalytic activity/Vol] 17 [iU]/d Normal 6 - 46 Int._Unit/L [facility] Anion gap [Moles/Vol] 12 mmol/L Normal 6 - 16 mEq/L [facility] AST [Catalytic activity/Vol] 21 [iU]/d Normal 5 - 43 Int._Unit/L [facility] Bilirubin [Mass/Vol] 0.7 mg/dL Normal 0.0 - 1.1 mg/dL [facility] Calcium [Mass/Vol] 10.0 mg/dL Normal 8.9 - 11.1 mg/dL [facility] Chloride [Moles/Vol] 105 mmol/L Normal 101 - 111 mmol/L [facility] Cholesterol [Mass/Vol] 166 mg/dL Normal 120 - 200 mg/dL [facility] Cholesterol in HDL [Mass/Vol] 72 mg/dL Invalid Interpretation Code [facility] Comment on above: Result Comment: '>= 60 LOW RISK' '<= 40 HIGH RISK' Cholesterol in LDL [Mass/Vol] 91 mg/dL Normal <=129mg/dL [facility] Cholesterol in VLDL [Mass/Vol] 17 mg/dL Normal 7 - 40 mg/dL [facility] CO2 [Moles/Vol] 27 mmol/L Normal 21 - 31 mmol/L Remis ol Chem Cobalamin (Vitamin B12) [Mass/Vol] 735 pg/mL Normal 50 - 1500 pg/mL [facility] Creatinine [Mass/Vol] 0.9 mg/dL Normal 0.5 - 1.3 mg/dL [facility] eGFR 81 mL/min/1.73 m2 Normal >=59mL/min/1.73 m2 [facility] Ferritin [Mass/Vol] 142 ng/mL Normal 11 - 307 ng/mL R emisol Chem Folate [Mass/Vol] ng/mL Normal >=6.7ng/mL [facility] Globulin (S) [Mass/Vol] 2.4 g/dL Normal 1.4 - 4.0 gm/dL [facility] Glucose [Mass/Vol] 96 mg/dL Normal 55 - 199 mg/dL Re misol Chem Iron [Mass/Vol] 137 ug/dL Normal 35 - 153 mcg/dL Rajeev hardik Chem Iron binding capacity [Mass/Vol] 293 ug/dL Normal 250 - 400 mcg/dL Remisol Chem Magnesium [Mass/Vol] 2.1 mg/dL Normal 1.3 - 2.4 mg/dL [facility] Potassium [Moles/Vol] 4.3 mmol/L Normal 3.5 - 5.3 mmol/L Rem[facility] Chem Protein [Mass/Vol] 6.7 g/dL Normal 6.0 - 7.8 gm/dL R emisol Chem Sodium [Moles/Vol] 140 mmol/L Normal 135 - 145 mmol/L Rem[facility] Chem Transferrin [Mass/Vol] 209 mg/dL Normal 200 - 370 mg/dL [facility] Chem Triglyceride [Mass/Vol] 87 mg/dL Normal <=149mg/dL Rem[facility] Chem TSH Qn 1.50 m[IU]/L Normal 0.34 - 5.60 mcIU/mL Rem isol Chem Urea nitrogen [Mass/Vol] 14 mg/dL Normal 5 - 21 mg/dL Remisol Chem Urea nitrogen/Creatinine [Mass ratio] 16 mg/mg Normal 10 - 20 Rem[facility] Chem CMPon 09-03-2023 Albumin [Mass/Vol] 4.3 g/dL Normal 3.3-5.0 [facility] Comment on above: Performed By: #### 2 766011, 18095764, 826661690, 8031638, 20010857, 5277879, 1366146, 49799142, 6989245, 4988046, 83884831, 5788307, 9482599 ####[facility] [address] [place] [address] Albumin/Globulin (S) [Mass conc ratio] 1.8 Normal 1.1-2.2 [facility] Comment on above: Performed By: #### 2 221317, 21344980, 453077968, 4092728, 75535312, 0021831, 9049571, 03186158, 2264019, 1574124, 86579516, 5254948, 6987177 ####[facility] [address] [place] [address] ALP [Catalytic activity/Vol] 47 Int._Unit/L Normal 21-98 [facility] Comment on above: Performed By: #### 2 115902, 00287129, 503734603, 3879866, 47713706, 7400421, 2091531, 63578638, 9033324, 2807923, 16999799, 0624825, 7575921 ####[facility] [address] [place] [address] ALT No additional P-5'-P [Catalytic activity/Vol] 17 Int._Unit/L Normal 6-46 [facility] Comment on above: Performed By: #### 2 449297, 46509477, 436705082, 2865067, 78353942, 9294291, 3061590, 40829670, 8115112, 2657454, 61801026, 3459789, 2708862 ####[facility] [address] [place] [address] Anion gap [Moles/Vol] 12 mmol/L Normal 6-16 [facility] Comment on above: Performed By: #### 2 892859, 27258776, 246212017, 3225446, 30627285, 6944045, 2462064, 41257962, 5962808, 1544776, 69081192, 3522184, 4927832 ####[facility] [address] [place] [address] AST [Catalytic activity/Vol] 21 Int._Unit/L Normal 5-43 [facility] Comment on above: Performed By: #### 2 724101, 22406642, 967881763, 3176173, 08635436, 8653901, 0991678, 77863185, 9820216, 1236102, 18497091, 0849828, 0900340 ####[facility] [address] [place] [address] Bilirubin [Mass/Vol] 0.7 mg/dL Normal 0.0-1.1 [facility] Comment on above: Performed By: #### 2 678991, 54687173, 981765571, 2275445, 75479053, 9539310, 4021103, 02575288, 1678377, 1701743, 27885633, 4418216, 1304027 ####[facility] [address] [place] [address] Calcium [Mass/Vol] 10.0 mg/dL Normal 8.9-11.1 [facility] Comment on above: Performed By: #### 2 372914, 54604261, 481222124, 3918481, 39139200, 8613361, 4926599, 40522892, 3799417, 3217229, 54405574, 2708101, 2610249 ####[facility] [address] [place] [address] Chloride [Moles/Vol] 105 mmol/L Normal 101-111 [facility] Comment on above: Performed By: #### 2 085979, 69028798, 585243737, 5008072, 29719624, 0705093, 1376887, 09117976, 0114846, 6114085, 54899387, 0010768, 1794794 ####[facility] [address] [place] [address] CO2 [Moles/Vol] 27 mmol/L Normal 21-31 [facility] Comment on above: Performed By: #### 2 813719, 28026704, 120295717, 1673002, 66144304, 7277745, 2986456, 58613301, 9233064, 8662667, 74040498, 8476083, 8492337 ####[facility] [address] [place] [address] Creatinine [Mass/Vol] 0.9 mg/dL Normal 0.5-1.3 [facility] Comment on above: Performed By: #### 2 508660, 16589768, 546822624, 0059464, 90432779, 1872899, 4457368, 51181609, 3330698, 3729466, 38689992, 4076225, 8329213 ####[facility] [address] [place] [address] Globulin (S) [Mass/Vol] 2.4 g/dL Normal 1.4-4.0 [facility] Comment on above: Performed By: #### 2 452959, 33718518, 946785904, 4856520, 98687280, 1445993, 5951710, 46708526, 5848071, 7856291, 77518215, 5894167, 1023110 ####[facility] [address] [place] [address] Glucose [Mass/Vol] 96 mg/dL Normal 55-199 [facility] Comment on above: Performed By: #### 2 406331, 44003116, 077864549, 9204198, 94338963, 5375589, 1892423, 44598099, 9193739, 0411806, 18516016, 9793358, 4067427 ####[facility] [address] [place] [address] Potassium [Moles/Vol] 4.3 mmol/L Normal 3.5-5.3 [facility] Comment on above: Performed By: #### 2 362368, 31958166, 971588090, 9906292, 70160314, 4567742, 3673414, 13916012, 6421786, 8032239, 80420578, 3966374, 9956641 ####[address] [place] [address] Protein [Mass/Vol] 6.7 g/dL Normal 6.0-7.8 [facility] Comment on above: Performed By: #### 2 547938, 49952630, 403521302, 2787352, 05869325, 6437721, 3407374, 70809697, 1029751, 5835061, 30791599, 2502766, 4705522 ####[address] [place] [address] Sodium [Moles/Vol] 140 mmol/L Normal 135-145 [facility] Comment on above: Performed By: #### 2 171514, 90858775, 128338417, 7379399, 03865534, 0372438, 4333613, 40841872, 2426442, 5704354, 99505151, 5975817, 7187797 ####[facility] [address] [place] [address] Urea nitrogen [Mass/Vol] 14 mg/dL Normal 5-21 [facility] Comment on above: Performed By: #### 2 549486, 61009640, 838557643, 9258697, 88283861, 2962881, 4962127, 43716351, 5331705, 0514488, 33657562, 5169714, 8082726 ####[facility] [address] [place] [address] Urea nitrogen/Creatinine [Mass ratio] 16 No Units Normal 10-20 [facility] Comment on above: Performed By: #### 2 722415, 61016184, 489930392, 4994816, 27474113, 8501997, 6255825, 56073682, 5281876, 3049739, 59328500, 8014960, 2661554 ####[facility] [address] [place] [address] Consent for Treatmenton 08-09 Consent for Treatment [id number] #[id number] Normal [facility] Ferritinon 09-03-2023 Ferritin [Mass/Vol] 142 ng/mL Normal 11-307 [facility] on above: Performed By: #### 2 330229, 16591857, 168666261, 0293235, 47483861, 0124996, 2920647, 90981712, 8404547, 3832378, 55288006, 6288320, 8231191 ####[facility] [address] [place] [address] Folateon 09-03-2023 Folate [Mass/Vol] ng/mL Normal >=6.7 [facility] Comment on above: Performed By: #### 2 025763, 33632595, 683303699, 0855173, 42213630, 7899540, 8385662, 33194426, 9488584, 7484196, 13127402, 5269505, 3125064 ####[facility] [address] [place] [address] HEMATOLOGYOrdered By: SYSTEM SYSTEM on 09-03-2023 Basophils/100 WBC (Bld) 0.5 % Normal 0.0 - 2.0 % Remisol Heme Basophils/Leukocyte s Auto (Bld) [Pure # fraction] 0.0 E9/L Normal 0.0 - 0.2 E9/L [facility] Eosinophils (Bld) [#/Vol] 0.0 E9/L Normal 0.0 - 0.5 E9/L [facility] Eosinophils/100 WBC (Bld) 0.4 % Normal 0.0 - 8.0 % [facility] Erythrocyte distribution width (RBC) [Ratio] 13.6 % Normal 10.9 - 14.2 % [facility] Hematocrit (Bld) [Volume fraction] 42.0 % Normal 34.0 - 46.0 % [facility] Hemoglobin (Bld) [Mass/Vol] 13.9 g/dL Normal 12.0 - 16.0 gm/dL [facility] Lymphocytes (Bld) [#/Vol] 2.0 E9/L Normal 1.0 - 4.0 E9/L [facility] Lymphocytes/100 WBC (Bld) 33.0 % Normal 14.0 - 50.0 % [facility] Heme MCH (RBC) [Entitic mass] 32.3 pg Normal 27.0 - 34.0 pg [facility] Heme MCHC (RBC) [Mass/Vol] 33.2 g/dL Normal 31.4 - 36.0 gm/dL Rem[facility] Heme MCV (RBC) [Entitic vol] 97.3 fL Normal 80.0 - 100.0 fL [facility] Monocytes (Bld) [#/Vol] 0.6 E9/L Normal 0.2 - 1.0 E9/L [facility] Heme Monocytes/100 WBC (Bld) 10.1 % Normal 4.0 - 14.0 % [facility] Neutrophils (Bld) [#/Vol] 3.4 E9/L Normal 2.0 - 7.5 E9/L [facility]e Neutrophils/100 WBC (Bld) 56.0 % Normal 36.0 - 75.0 % [facility] Platelet 263.0 E9/L Normal 150.0 - 500.0 E9/L Remiso l Heme Platelet mean volume (Bld) [Entitic vol] 8.4 fL Normal 6.4 - 10.8 fL [facility] Heme RBC (Bld) [#/Vol] 4.3 E12/L Normal 4.3 - 5.9 E12/L Re misol Heme WBC corrected for nucl RBC Auto (Bld) [#/Vol] 6.1 E9/L Normal 4.0 - 11.0 E9/L [facility] Heme Ironon 03-26-2024 Iron [Mass/Vol] 137 microgram/dL Normal 35-153 [facility] Comment on above: Performed By: #### 2 617058, 52073449, 478397340, 2069714, 51682523, 5404253, 5478846, 81190664, 5327164, 1275035, 17851394, 8824590, 7096231 ####[facility] [address] [place] [address] Lipid Panelon 09-03-2023 Cholesterol [Mass/Vol] 166 mg/dL Normal 120-200 [facility] Comment on above: Performed By: #### 2 282834, 73256177, 123569375, 2903655, 83375405, 6388665, 4194569, 09450486, 5717700, 1758250, 04546438, 8079399, 1537005 ####[facility] [address] [place] [address] Cholesterol in HDL [Mass/Vol] 72 mg/dL Invalid Interpretation Code [facility] Comment on above: Result Comment: '>= 60 LOW RISK' '<= 40 HIGH RISK' Performed By: #### 2 330799, 63425305, 558427084, 4955893, 49304371, 6626708, 9842922, 62144642, 1677588, 3221044, 25714387, 3875223, 5420119 ####[facility] [address] [place] [address] Cholesterol in LDL [Mass/Vol] 91 mg/dL Normal <=129 [facility] Comment on above: Performed By: #### 2 807488, 95448921, 415678451, 1207444, 60627703, 2587540, 1298509, 04216144, 4911922, 3957157, 19678275, 9540258, 7436864 ####[facility] [address] [place] [address] Cholesterol in VLDL [Mass/Vol] 17 mg/dL Normal 7-40 [facility] Comment on above: Performed By: #### 2 853526, 80550630, 695576433, 4125171, 74790861, 4901735, 1037840, 39100328, 5717941, 1661843, 02442019, 3193120, 3535969 ####[facility] [address] [place] [address] Triglyceride [Mass/Vol] 87 mg/dL Normal <=149 [facility] Comment on above: Performed By: #### 2 257696, 31367592, 670021991, 7024230, 87501003, 1444284, 0240469, 00213789, 4981888, 9961229, 23547950, 2665524, 9546717 ####[facility] [address] [place] [address] Magnesiumon 09-03-2023 Magnesium [Mass/Vol] 2.1 mg/dL Normal 1.3-2.4 [facility] Comment on above: Performed By: #### 2 505149, 57648733, 857994120, 9171595, 43157316, 2823779, 8418921, 63840013, 5291720, 1244821, 51867628, 0813290, 7606616 ####[facility] [address] [place] [address] TIBC Calculatedon 09-03-2023 Iron binding capacity [Mass/Vol] 293 microgram/dL Normal 250-400 [facility] Comment on above: Performed By: #### 2 923886, 66263118, 171651455, 7057968, 29772585, 0431151, 8862029, 46151798, 8467094, 4539700, 84739110, 0153060, 1605506 ####[facility] [address] [place] [address] Transferrin [Mass/Vol] 209 mg/dL Normal 200-370 [facility] Comment on above: Performed By: #### 2 256784, 25833476, 413008601, 7136866, 49431932, 3618471, 0333253, 11741873, 6579183, 6479162, 21570587, 8581794, 8567204 ####[facility] [address] [place] [address] TSH With T4fr Reflexon 09-02 TSH Qn 1.50 m[IU]/L Normal 0.34-5.60 [facility] Comment on above: Performed By: #### 2 578695, 12945349, 669734137, 7409228, 23111757, 3117044, 1799463, 35463535, 0980873, 4188049, 71968818, 5940633, 4138379 ####[facility] [address] [place] [address] Vit B12on 09-03-2023 Cobalamin (Vitamin B12) [Mass/Vol] 735 pg/mL Normal 50-1500 [facility] Comment on above: Performed By: #### 2 218020, 26333469, 868863873, 9999443, 20828978, 0242833, 6886115, 45483084, 4946398, 1076998, 17247001, 1964661, 8151446 ####[facility] [address] [place] [address] Vitamin D 25 Hydroxyon 09-02 25-hydroxyvitamin D3 [Mass/Vol] 89.5 ng/mL Normal 30.0-100.0 [facility] Comment on above: Performed By: #### 2 980053, 04124092, 119663770, 7328837, 46463111, 5992371, 7587419, 32651849, 3020024, 7357291, 73327715, 7018194, 2620399 ####[facility] [address] [place] [address] eGFRon 09-03-2023 eGFR 81 mL/min/1.73 m2 Normal >=59 [facility] Comment on above: Order Comment: Order added by Discern Expert. 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 Essential hypertension Essential tremor Asthma, moderate persistent Chronic seasonal allergic rhinitis Overweight BMI 30.0-30.9,adult Screening mammogram, encounter for Your Care Team Attending Physician - KIP MARTE, Eldon Primary Care Physician - Eldon SHIN MD This Is Your Medications List metformin (MetFORMIN (Eqv-Glucophage XR) 500 mg oral tablet, extended release) phentermine (phentermine 37.5 mg Tab) Contact prescribing physician if questions or concerns bifidobacterium infantis (Align 4 mg oral capsule) buPROPion (buPROPion 300 mg/24 hours ER Tab) calcium citrate cetirizine (ZyrTEC 10 mg Tab) cholecalciferol (Vitamin D3 1000 intl units oral capsule) hydrochlorothiazide (hydrochlorothiazide 12.5 mg Cap) multivitamin with minerals (Celebrate Multivitamin oral tablet, chewable) naproxen (naproxen 500 mg Tab) polyethylene glycol 3350 (Miralax 17 gram packet) potassium chloride (potassium chloride 20 mEq ER Tab) psyllium (Metamucil 525 mg oral capsule) [Image Removed: STOP]Stop taking these medications amitriptyline (amitriptyline 10 mg Tab) aripiprazole (Abilify 5 mg Tab) citric acid-sodium citrate (Oracit oral solution) collagen topical (collagen topical powder) tirzepatide (Mounjaro 15 mg/0.5 mL subcutaneous solution) Procedures Performed Colonoscopy (10/28/2020), Cystoscopy (08/31/2020), ESWL of kidney (08/11/2020), ESWL of kidney (08/04/2020), ESWL of kidney (07/28/2020), Bariatric operative procedure (08/05/2018), right carpal tunnel release (02/05/2014), left carpal tunnel release (11/06/2013), section (02/18/2009), Arthroscopy of knee (1999), Operation on septum of nose (1997), Arthroscopy of wrist (1995), Operation on septum of nose (1995), Plastic excision of skin of abdominal wall, Removal of skin flap, tubal ligation, Vaginal hysterectomy. Discharge Vitals Temperature (Temporal Artery) 36.8 ?C Heart Rate (Peripheral) 70 Respiratory Rate 16 Blood Pressure 120/78 Height 167 cm Height 66 in Weight 85.9 kg Weight 188.98 lb BMI 30.8 What to do next Scheduled Follow-Up Appointments Saturday 5:00 PM EDT With: Eldon SHIN MD Where: [facility] [place] Normal [address] [place] [address]- \.br\ You Need to Schedule the Following Appointments\.br\ Follow Up with Eldon SHIN MD, [facility] When: In 3 months\.br\ Where:\.br\ \.br\ You Need to Complete the Following\.br\ MA Mamm Screen w/CAD if perf and 3D Piero, *Est. 08/30/23 due within 3 months, Routine, Order for Future Visit, Transport Mode: Ambulatory, Reason: Screening, No, Screening mammogram, encounter for, pp_set_radiology_sub specialty, [facility]\.br\ Medications\.br\ What How Much When Why Instructions\.br\ Changed metformin (MetFORMIN (Eqv-Glucophage XR) 500 mg oral tablet, extended release) See instructions 1 tab(s) po qam, 2 tabs po qpm Pickup at [facility]\.br\ Changed phentermine (phentermine 37.5 mg Tab) 1 Tablets By Mouth Every day Overweight 30.8 BMI before breakfast Pickup at [facility]\.br\ Unchanged bifidobacterium infantis (Align 4 mg oral capsule) 1 Capsules By Mouth Every day Change in bowel habits Take after completing the Antibiotics course Contact prescribing physician if questions or concerns \.br\ Unchanged buPROPion (buPROPion 300 mg/ 24 hours ER Tab) 1 Tablets By Mouth Every day Contact prescribing physician if questions or concerns \.br\ Unchanged calcium citrate 500 Milligram By Mouth 3 times a day Contact prescribing physician if questions or concerns \.br\ Unchanged cetirizine (ZyrTEC 10 mg Tab) 1 Tablets By Mouth Every day Contact prescribing physician if questions or concerns \.br\ Unchanged cholecalciferol (Vitamin D3 1000 intl units oral capsule) 5 Capsules By Mouth Every day Contact prescribing physician if questions or concerns \.br\ Unchanged hydrochlorothiazide (hydrochlorothiazide 12.5 mg Cap) 1 Capsules By Mouth Every day Duration: 90 Days Contact prescribing physician if questions or concerns \.br\ Unchanged multivitamin with minerals (Celebrate Multivitamin oral tablet, chewable) 1 Tablets Chewed 2 times a day Contact prescribing physician if questions or concerns \.br\ Unchanged naproxen (naproxen 500 mg Tab) 1 Tablets By Mouth 2 times a day Take one tab by mouth two times a day Contact prescribing physician if questions or concerns \.br\ Unchanged polyethylene glycol 3350 (Miralax 17 gram packet) 17 Gram By Mouth Every day dissolve in water before taking Contact prescribing physician if questions or concerns \.br\ Unchanged potassium chloride (potassium chloride 20 mEq ER Tab) 1 Tablets By Mouth Every day Contact prescribing physician if questions or concerns \.br\ Unchanged psyllium (Metamucil 525 mg oral capsule) 2 Capsules By Mouth Every day Change in bowel habits Take 2 hour apart from the other medications with at least 8 ounces of water Contact prescribing physician if questions or concerns \.br\ Pharmacy Information\.br\ [facility]: [address] [place], [place] [id number] [phone]\.br\ \.br\ What How Much When Comments\.br\ Stop Taking amitriptyline (amitriptyline 10 mg Tab) See instructions Take upto 3 tabs at bedtime for insomnia \.br\ Stop Taking aripiprazole (Abilify 5 mg Tab) 1 Tablets By Mouth Every day discontinue Fuoxetine \.br\ Stop Taking citric acid-sodium citrate (Oracit oral solution) See instructions Take 6 teaspoons per day \.br\ Stop Taking collagen topical (collagen topical powder) 2 times a day\.br\ Stop Taking tirzepatide (Mounjaro 15 mg/ 0.5 mL subcutaneous solution) 15 Milligram Subcutaneous Every week\.br\ Medications and Immunizations Administered\.br\ Not Given\.br\ influenza virus vaccine, inactivated, Postpone due to refusal, gvn\.br\ Allergies\.br\ GRASS, POLLEN, TREES, WEEDS,MOLD, ANIMAL DANDER\.br\ No Known Medication Allergies\.br\ Problems\.br\ Ongoing - Any problem that you are currently receiving treatment for.\.br\ Actinic keratoses\.br\ Asthma, moderate persistent\.br\ Bilateral nephrolithiasis\.br\ BMI 30.0-30.9,adult\.br\ Chronic insomnia\.br\ Chronic seasonal allergic rhinitis\.br\ Encounter for well adult exam with abnormal findings\.br\ Essential hypertension\.br\ Essential tremor\.br\ Hypokalemia\.br\ Inflamed seborrheic keratosis\.br\ Kidney stone\.br\ Major depression in partial remission\.br\ Onychomycosis of left great toe\.br\ Overweight\.br\ Personal history of gastric bypass\.br\ Postoperative malabsorption\.br\ Screening mammogram, encounter for\.br\ Urinary frequency\.br\ Historical - Any problem that you are no longer receiving treatment for.\.br\ Carpal tunnel syndrome\.br\ Depression, Mild\.br\ Dysesthesia\.br\ Frontal sinusitis\.br\ History of - section\.br\ History of - severe pre-eclampsia\.br\ Hypermenorrhea\.br\ MRSA\.br\ Obesity due to excess calories\.br\ Otalgia of right ear\.br\ PINK EYE RIGHT\.br\ Placental abruption\.br\ Right acute serous otitis media\.br\ subconjunctive hemorrhage\.br\ Uterine rupture\.br\ Patient Survey\.br\ You may receive a survey via text or e-mail asking about your office visit. Please share your experience with us by completing your survey. We appreciate your feedback and thank you for choosing us for your care.\.br\ Education Materials\.br\ Health Maintenance, Female\.br\ Adopting a healthy lifestyle and getting preventive care are important in promoting health and wellness. Ask your health care provider about:\.br\ ? \.br\ The right schedule for you to have regular tests and exams.\.br\ ? \.br\ Things you can do on your own to prevent diseases and keep yourself healthy.\.br\ What should I know about diet, weight, and exercise?\.br\ Eat a healthy diet\.br\ \.br\ ? \.br\ Eat a diet that includes plenty of vegetables, fruits, low-fat dairy products, and lean protein.\.br\ ? \.br\ Do not eat a lot of foods that are high in solid fats, added sugars, or sodium.\.br\ Maintain a healthy weight\.br\ Body mass index (BMI) is used to identify weight problems. It estimates body fat based on height and weight. Your health care provider can help determine your BMI and help you achieve or maintain a healthy weight.\.br\ Get regular exercise\.br\ Get regular exercise. This is one of the most important things you can do for your health. Most adults should:\.br\ ? \.br\ Exercise for at least 150 minutes each week. The exercise should increase your heart rate and make you sweat (moderate-intensity exercise).\.br\ ? \.br\ Do strengthening exercises at least twice a week. This is in addition to the moderate-intensity exercise.\.br\ ? \.br\ Spend less time sitting. Even light physical activity can be beneficial.\.br\ Watch cholesterol and blood lipids\.br\ Have your blood tested for lipids and cholesterol at 20 years of age, then have this test every 5 years.\.br\ Have your cholesterol levels checked more often if:\.br\ ? \.br\ Your lipid or cholesterol levels are high.\.br\ ? \.br\ You are older than 40 years of age.\.br\ ? \.br\ You are at high risk for heart disease.\.br\ What should I know about cancer screening?\.br\ Depending on your health history and family history, you may need to have cancer screening at various ages. This may include screening for:\.br\ ? \.br\ Breast cancer.\.br\ ? \.br\ Cervical cancer.\.br\ ? \.br\ Colorectal cancer.\.br\ ? \.br\ Skin cancer.\.br\ ? \.br\ Lung cancer.\.br\ What should I know about heart disease, diabetes, and high blood pressure?\.br\ Blood pressure and heart disease\.br\ ? \.br\ High blood pressure causes heart disease and increases the [facility] Medicine Office/Clini c Noteon 08-30-2023 Family Medicine Office/Clinic Note Chief Complaint [facility] wellness exam, not fasting, no rfs History of Present Illness The patient is a 42-year-old female who is here for wellness exam. She is still using Wellbutrin. Her mood in general is okay for the most part, but there are still days where she feels sad. She is no longer using amitriptyline in order to help sleep or Abilify. Gastric bypass physicians filled it was causing more weight gain. She has been following with her [facility] doctors since her surgery, but her insurance only covers a telehealth visit. They told her since she is 5 years out, if she wanted to do the annual lab work and the medications through my office, they will be fine with that. She is on phentermine and that is why she stopped the amitriptyline. She could no longer get the Mounjaro because her insurance does not cover it. She takes metformin extended release 3 times a day, 1 in the morning and 2 at dinner time. She takes potassium. She takes anti-inflammatories as needed for headaches But very cautiously with the gastric bypass. Denies any significant reflux. She takes hydrochlorothiazide to prevent kidney stones. She has not had any recent stones. She is up to date with her dental and optometry. She has an appointment on Saturday. She denies any recent flares of asthma. She no longer needs inhalers routinely with the weight off. Her breathing is a lot better. Her bowels are moving okay. She denies any skin rashes, bumps, or swelling. She is not sleeping well. She takes melatonin 5 mg. She goes to bed by 8:30 or 9:00 and wakes up around 11:30 or 1:00. She noticed knee pain once she stopped taking collagen. She is agreeable to mammogram. Review of Systems PHQ Score Initial Depression Screen Score: 2 SCORE see hpi otehrwise neg Physical Exam Vitals & Measurements T: 36.8 ?C(Temporal Artery) HR: 70(Peripheral) RR: 16 BP: 120/78 SpO2: 99% HT: 66 in HT: 167 cm WT: 85.9 kg WT: 188.98 lb BMI: 30.8 Constitutional: Adequately groomed well-hydrated HEENT: Wearing corrective lenses. Conjunctiva clear pupils are symmetric. Extraocular muscles intact. TMs are clear good shosh[place]paiute dentition with repairs oropharynx pink and moist neck is supple no thyromegaly Cardiothoracic: Regular rate and rhythm no murmur gallop or rub Respiratory: CTA bilaterally no wheeze or rhonchi Abdomen/GI: Overweight nontender no organomegaly Genitourinary: Deferred Musculoskeletal: Well-developed Neurologic: No acute neurologic deficits no discrete tremors Integument: Skin relatively tanned Psychiatric: Cooperative relatively bright affect. Assessment/Plan 1. Encounter for well adult exam with abnormal findings (Z00.01: Encounter for general adult medical examination with abnormal findings) Discussed with patient plan for laboratories to assess her gastric bypass stability. She has a list of these and we will place this to the hospital She will self schedule mammogram. Continue with optometry and dental care Ordered: CBC w/ Auto Diff Comprehensive Metabolic Panel Ferritin Folate Level Iron Level Lipid Panel Magnesium Level PTH Intact TIBC Calculated TSH With T4fr Reflex Vitamin B1 Vitamin B12 Level Vitamin D 25 Hydroxy 2. Chronic insomnia (F51.04: Psychophysiologic insomnia) Encouraging her to increase her melatonin. Maximum 10 mg daily. Continue good sleep hygiene. May need to give consideration to other prescription treatment but she would like to avoid weight gain Ordered: CBC w/ Auto Diff Comprehensive Metabolic Panel Ferritin Folate Level Iron Level Lipid Panel Magnesium Level PTH Intact TIBC Calculated TSH With T4fr Reflex Vitamin B1 Vitamin B12 Level Vitamin D 25 Hydroxy 3. Major depression in partial remission (F32.4: Major depressive disorder, single episode, in partial remission) Tolerating Wellbutrin nicely with good response. No longer using Abilify or amitriptyline. She denies any need for counseling. Ordered: CBC w/ Auto Diff Comprehensive Metabolic Panel Ferritin Folate Level Iron Level Lipid Panel Magnesium Level PTH Intact TIBC Calculated TSH With T4fr Reflex Vitamin B1 Vitamin B12 Level Vitamin D 25 Hydroxy 4. Postoperative malabsorption (K91.2: Postsurgical malabsorption, not elsewhere classified) Reviewed the importance of avoiding anti-inflammatories to prevent reflux or ulceration. Planning scheduled labs results will be called Ordered: CBC w/ Auto Diff Comprehensive Metabolic Panel Ferritin Folate Level Iron Level Lipid Panel Magnesium Level PTH Intact TIBC Calculated TSH With T4fr Reflex Vitamin B1 Vitamin B12 Level Vitamin D 25 Hydroxy 5. Essential hypertension (I10: Essential (primary) hypertension) The importance of the following were all reviewed with the patient: -Take Rx(s )as prescribed. There are simple Lifestyle Modifications that you can do to reduce your blood pressure. -Weight Reduction -Follow the DASH eating plan. More i (more content not included)... Normal [facility] Comment on above: Result Comment: Elec tronically Signed By: KIP MARTE, Eldon\.br\Date and Time Signed: 08/30/23 18:23 EDT Patient Educationon 08-28-19 Patient Education Obstetrics and Gynecology Health Maintenance, Female Adopting a healthy lifestyle and getting preventive care are important in promoting health and wellness. Ask your health care provider about: ? The right schedule for you to have regular tests and exams. ? Things you can do on your own to prevent diseases and keep yourself healthy. What should I know about diet, weight, and exercise? Eat a healthy diet ? Eat a diet that includes plenty of vegetables, fruits, low-fat dairy products, and lean protein. ? Do not eat a lot of foods that are high in solid fats, added sugars, or sodium. Maintain a healthy weight Body mass index (BMI) is used to identify weight problems. It estimates body fat based on height and weight. Your health care provider can help determine your BMI and help you achieve or maintain a healthy weight. Get regular exercise Get regular exercise. This is one of the most important things you can do for your health. Most adults should: ? Exercise for at least 150 minutes each week. The exercise should increase your heart rate and make you sweat (moderate-intensity exercise). ? Do strengthening exercises at least twice a week. This is in addition to the moderate-intensity exercise. ? Spend less time sitting. Even light physical activity can be beneficial. Watch cholesterol and blood lipids Have your blood tested for lipids and cholesterol at 20 years of age, then have this test every 5 years. Have your cholesterol levels checked more often if: ? Your lipid or cholesterol levels are high. ? You are older than 40 years of age. ? You are at high risk for heart disease. What should I know about cancer screening? Depending on your health history and family history, you may need to have cancer screening at various ages. This may include screening for: ? Breast cancer. ? Cervical cancer. ? Colorectal cancer. ? Skin cancer. ? Lung cancer. What should I know about heart disease, diabetes, and high blood pressure? Blood pressure and heart disease ? High blood pressure causes heart disease and increases the risk of stroke. This is more likely to develop in people who have high blood pressure readings or are overweight. ? Have your blood pressure checked: ? Every 3?5 years if you are 18?39 years of age. ? Every year if you are 40 years old or older. Diabetes Have regular diabetes screenings. This checks your fasting blood sugar level. Have the screening done: ? Once every three years after age 40 if you are at a normal weight and have a low risk for diabetes. ? More often and at a younger age if you are overweight or have a high risk for diabetes. What should I know about preventing infection? Hepatitis B If you have a higher risk for hepatitis B, you should be screened for this virus. Talk with your health care provider to find out if you are at risk for hepatitis B infection. Hepatitis C Testing is recommended for: ? Everyone born from 1945 through 1965. ? Anyone with known risk factors for hepatitis C. Sexually transmitted infections (STIs) ? Get screened for STIs, including gonorrhea and chlamydia, if: ? You are sexually active and are younger than 24 years of age. ? You are older than 24 years of age and your health care provider tells you that you are at risk for this type of infection. ? Your sexual activity has changed since you were last screened, and you are at increased risk for chlamydia or gonorrhea. Ask your health care provider if you are at risk. ? Ask your health care provider about whether you are at high risk for HIV. Your health care provider may recommend a prescription medicine to help prevent HIV infection. If you choose to take medicine to prevent HIV, you should first get tested for HIV. You should then be tested every 3 months for as long as you are taking the medicine. ? If you are about to stop having your period (premenopausal) and you may become , seek counseling before you get . ? Take 400 to 800 micrograms (mcg) of folic acid every day if you become . ? Ask for control (contraception) if you want to prevent . Osteoporosis and menopause Osteoporosis is a disease in which the bones lose minerals and strength with aging. This can result in bone fractures. If you are 65 years old or older, or if you are at risk for osteoporosis and fractures, ask your health care provider if you should: ? Be screened for bone loss. ? Take a calcium or vitamin D supplement to lower your risk of fractures. ? Be given hormone replacement therapy (HRT) to treat symptoms of menopause. Follow these instructions at home: Alcohol use ? Do not drink alcohol if: ? Your health care provider tells you not to drink. ? You are , may be , or are planning to become . ? If you drink alcohol: ? Limit how much you have to: ? 0?1 drink a day. ? Know how much alcohol is in y (more content not included)... 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 Chronic seasonal allergic rhinitis Asthma, moderate persistent Overweight BMI 30.0-30.9,adult Screening mammogram, encounter for Your Care Team Attending Physician - Eldon SHIN MD Primary Care Physician - Eldon SHIN MD This Is Your Medications List buPROPion (buPROPion 300 mg/24 hours ER Tab) Contact prescribing physician if questions or concerns amitriptyline (amitriptyline 10 mg Tab) aripiprazole (Abilify 5 mg Tab) bifidobacterium infantis (Align 4 mg oral capsule) calcium citrate cetirizine (ZyrTEC 10 mg Tab) cholecalciferol (Vitamin D3 1000 intl units oral capsule) citric acid-sodium citrate (Oracit oral solution) collagen topical (collagen topical powder) hydrochlorothiazide (hydrochlorothiazide 12.5 mg Cap) multivitamin with minerals (Celebrate Multivitamin oral tablet, chewable) naproxen (naproxen 500 mg Tab) polyethylene glycol 3350 (Miralax 17 gram packet) potassium chloride (potassium chloride 20 mEq ER Tab) psyllium (Metamucil 525 mg oral capsule) tirzepatide (Mounjaro 15 mg/0.5 mL subcutaneous solution) Procedures Performed Colonoscopy (10/28/2020), Cystoscopy (08/31/2020), ESWL of kidney (08/11/2020), ESWL of kidney (08/04/2020), ESWL of kidney (07/28/2020), Bariatric operative procedure (08/05/2018), right carpal tunnel release (02/05/2014), left carpal tunnel release (11/06/2013), section (02/18/2009), Arthroscopy of knee (1999), Operation on septum of nose (1997), Arthroscopy of wrist (1995), Operation on septum of nose (1995), Plastic excision of skin of abdominal wall, Removal of skin flap, tubal ligation, Vaginal hysterectomy. Discharge Vitals Heart Rate (Peripheral) 72 Respiratory Rate 16 Blood Pressure 120/78 Height 167 cm Height 66 in Weight 84 kg Weight 184.8 lb BMI 30.12 What to do next Scheduled Follow-Up Appointments Saturday 11:40 AM EDT [facility]: [facility] [place] 4:00 PM EDT With: Eldon SHIN MD Where: [facility] [address] [place] [address]- \.br\ You Need to Schedule the Following Appointments\.br\ Follow Up with KIP MARTE, Eldon, [facility] When: Within 6 months\.br\ Where:\.br\ [address] [place] [address] [facility]\.br\ [place] [address]-\.br\ \.br\ You Need to Complete the Following\.br\ MA Mamm Screen w/CAD if perf and 3D Piero, *Est. 03/01/23 due within 4 months, Routine, Order for Future Visit, Transport Mode: Ambulatory, Reason: Screening, No, Screening mammogram, encounter for, pp_set_radiology_sub specialty, [facility]\.br\ Medications\.br\ What How Much When Why Instructions\.br\ Unchanged buPROPion (buPROPion 300 mg/ 24 hours ER Tab) 1 Tablets By Mouth Every day Pickup at [facility]\.br\ Unchanged amitriptyline (amitriptyline 10 mg Tab) See instructions Take upto 3 tabs at bedtime for insomnia Contact prescribing physician if questions or concerns \.br\ Unchanged aripiprazole (Abilify 5 mg Tab) 1 Tablets By Mouth Every day discontinue Fuoxetine Contact prescribing physician if questions or concerns \.br\ Unchanged bifidobacterium infantis (Align 4 mg oral capsule) 1 Capsules By Mouth Every day Change in bowel habits Take after completing the Antibiotics course Contact prescribing physician if questions or concerns \.br\ Unchanged calcium citrate 500 Milligram By Mouth 3 times a day Contact prescribing physician if questions or concerns \.br\ Unchanged cetirizine (ZyrTEC 10 mg Tab) 1 Tablets By Mouth Every day Contact prescribing physician if questions or concerns \.br\ Unchanged cholecalciferol (Vitamin D3 1000 intl units oral capsule) 5 Capsules By Mouth Every day Contact prescribing physician if questions or concerns \.br\ Unchanged citric acid-sodium citrate (Oracit oral solution) See instructions Take 6 teaspoons per day Contact prescribing physician if questions or concerns \.br\ Unchanged collagen topical (collagen topical powder) 2 times a day Contact prescribing physician if questions or concerns \.br\ Unchanged hydrochlorothiazide (hydrochlorothiazide 12.5 mg Cap) 1 Capsules By Mouth Every day Duration: 90 Days Contact prescribing physician if questions or concerns \.br\ Unchanged multivitamin with minerals (Celebrate Multivitamin oral tablet, chewable) 1 Tablets Chewed 2 times a day Contact prescribing physician if questions or concerns \.br\ Unchanged naproxen (naproxen 500 mg Tab) 1 Tablets By Mouth 2 times a day Take one tab by mouth two times a day Contact prescribing physician if questions or concerns \.br\ Unchanged polyethylene glycol 3350 (Miralax 17 gram packet) 17 Gram By Mouth Every day dissolve in water before taking Contact prescribing physician if questions or concerns \.br\ Unchanged potassium chloride (potassium chloride 20 mEq ER Tab) 1 Tablets By Mouth Every day Contact prescribing physician if questions or concerns \.br\ Unchanged psyllium (Metamucil 525 mg oral capsule) 2 Capsules By Mouth Every day Change in bowel habits Take 2 hour apart from the other medications with at least 8 ounces of water Contact prescribing physician if questions or concerns \.br\ Unchanged tirzepatide (Mounjaro 15 mg/ 0.5 mL subcutaneous solution) 15 Milligram Subcutaneous Every week Contact prescribing physician if questions or concerns \.br\ Pharmacy Information\.br\ [facility]: [address] [place], [place] [id number] [phone]\.br\ Medications and Immunizations Administered\.br\ Not Given\.br\ influenza virus vaccine, inactivated, Postpone due to refusal\.br\ Allergies\.br\ GRASS, POLLEN, TREES, WEEDS,MOLD, ANIMAL DANDER\.br\ No Known Medication Allergies\.br\ Problems\.br\ Ongoing - Any problem that you are currently receiving treatment for.\.br\ Actinic keratoses\.br\ Asthma, moderate persistent\.br\ Bilateral nephrolithiasis\.br\ BMI 30.0-30.9,adult\.br\ Chronic insomnia\.br\ Chronic seasonal allergic rhinitis\.br\ Encounter for well adult exam with abnormal findings\.br\ Essential hypertension\.br\ Essential tremor\.br\ Hypokalemia\.br\ Inflamed seborrheic keratosis\.br\ Kidney stone\.br\ Major depression in partial remission\.br\ Muscle twitching\.br\ Onychomycosis of left great toe\.br\ Overweight\.br\ Personal history of gastric bypass\.br\ Postoperative malabsorption\.br\ Screening mammogram, encounter for\.br\ Urinary frequency\.br\ Historical - Any problem that you are no longer receiving treatment for.\.br\ Carpal tunnel syndrome\.br\ Depression, Mild\.br\ Dysesthesia\.br\ Frontal sinusitis\.br\ History of - section\.br\ History of - severe pre-eclampsia\.br\ Hypermenorrhea\.br\ MRSA\.br\ Obesity due to excess calories\.br\ Otalgia of right ear\.br\ PINK EYE RIGHT\.br\ Placental abruption\.br\ Right acute serous otitis media\.br\ subconjunctive hemorrhage\.br\ Uterine rupture\.br\ Education [employer]\.br\ Insomnia\.br\ Insomnia is a sleep disorder that makes it difficult to fall asleep or stay asleep. Insomnia can cause fatigue, low energy, difficulty concentrating, mood swings, and poor performance at work or school.\.br\ There are three different ways to classify insomnia:\.br\ ? \.br\ Difficulty falling asleep.\.br\ ? \.br\ Difficulty staying asleep.\.br\ ? \.br\ Waking up too early in the morning.\.br\ Any type of insomnia can be long-term (chronic) or short-term (acute). Both are common. Short-term insomnia usually lasts for 3 months or less. Chronic insomnia occurs at least three times a week for longer than 3 months.\.br\ What are the causes?\.br\ Insomnia may be caused by another condition, situation, or substance, such as:\.br\ ? \.br\ Having certain mental health conditions, such as anxiety and depression.\.br\ ? \.br\ Using caffeine, alcohol, tobacco, or drugs.\.br\ ? \.br\ Having gastrointestinal conditions, such as gastroesophageal reflux disease (GERD).\.br\ ? \.br\ Having certain medical conditions. These include:\.br\ ? \.br\ Asthma.\.br\ ? \.br\ Alzheimer's disease.\.br\ ? \.br\ Stroke.\.br\ ? \.br\ Chronic pain.\.br\ ? \.br\ An overactive thyroid gland (hyperthyroidism).\. br\ ? \.br\ Other sleep disorders, such as restless legs syndrome and sleep apnea.\.br\ ? \.br\ Menopause.\.br\ Sometimes, the cause of insomnia may not be known.\.br\ What increases the risk?\.br\ Risk factors for insomnia include:\.br\ ? \.br\ Gender. Females are affected more often than males.\.br\ ? \.br\ Age. Insomnia is more common as people get older.\.br\ ? \.br\ Stress and certain medical and mental health conditions.\.br\ ? \.br\ Lack of exercise.\.br\ ? \.br\ Having an irregular work schedule. This may include working night shifts and traveling between different time zones.\.br\ What are the signs or symptoms?\.br\ If you have insomnia, the main symptom is having trouble falling asleep or having trouble staying asleep. This may lead to other symptoms, such as:\.br\ ? \.br\ Feeling tired or having low energy.\.br\ ? \.br\ Feeling nervous about going to sleep.\.br\ ? \.br\ Not feeling rested in the morning.\.br\ ? \.br\ Having trouble concentrating.\.br\ ? \.br\ Feeling irritable, anxious, or depressed.\.br\ How is this diagnosed?\.br\ This condition may be diagnosed based on:\.br\ ? \.br\ Your symptoms and medical history. Your health care provider may ask about:\.br\ ? \.br\ Your sleep habits.\.br\ ? \.br\ [facility] Office/Clini c Noteon 03-01-2023 Family Medicine Office/Clinic Note Chief Complaint 6mo chk up, not fasting, rf wellbutrin to [facility] pharm, will get flu vacc at [facility] History of Present Illness HISTORY OF PRESENT ILLNESS The patient is here for health maintenance exam. She continues to follow with urology. She had a KUB back in 12/2022. She denies any pain or gross hematuria. Very pleased with current status recognizing there are kidney stones but they are not moving. She has her next appointment with gastric bypass folks in [place] at the beginning of 03/2023. She had to stop Mounjaro injections because of pricing. She is not diabetic. She is debating just paying for it out of pocket because she noticed a huge difference. She was down to 165 pounds with the Mounjaro and it kept her appetite down. She had an abdominoplasty and everything has healed up nicely. She had a baseline mammogram done in 03/2022 and spring. She gets her influenza vaccine with work 03/18/2023. She is up to date with her dental exam. She denies any visual changes or problems with eyesight. She wears contacts. Her bowels are moving well. Her mood is normal. She does not require any counseling. She sleeps okay at night for the most part. She does not use her CPAP anymore. She is on Wellbutrin 300 mg once a day and needs a refill. She is on Abilify and amitriptyline. Her allergies and asthma are quiet right now. She has not had any flares. She has not used any daily inhalers. Does not even have any that are active. Review of Systems PHQ Score Initial Depression Screen Score: 0 See HPI otherwise negative Physical Exam Vitals & Measurements HR: 72(Peripheral) RR: 16 BP: 120/78 SpO2: 98% HT: 66 in HT: 167 cm WT: 84 kg WT: 184.8 lb BMI: 30.12 PHYSICAL EXAM Patient is well hydrated, adequately groomed. Eyes clear. Pupils are symmetric. Oropharynx pink and moist. Good sh[place]paiute dentition with repairs. Very mild torus palatine in the upper roof of the mouth. Boggy turbinates but clear rhinorrhea. Supple. No thyromegaly. Clear bilaterally to auscultation. Regular rate and rhythm. No murmur, gallop, or rub. Abdomen: Mildly overweight, nontender. No organomegaly. Deferred. Well-developed. Deeply tanned. Incisional scars from adipose removal from the upper arms healed nicely. Cooperative, insightful, bright affect, very pleasant. No psychomotor education. Assessment/Plan 1. Chronic insomnia (F51.04: Psychophysiologic insomnia) Patient continues with amitriptyline as well as Wellbutrin and good sleep hygiene. 2. Essential hypertension (I10: Essential (primary) hypertension) The importance of the following were all reviewed with the patient: -Take Rx(s )as prescribed. There are simple Lifestyle Modifications that you can do to reduce your blood pressure. -Weight Reduction -Follow the DASH eating plan. More information about this eating plan can be found here: https://www.nhlbi.ni [place].gov/health/health- topics/topics/dash -Reduce Sodium (Salt) Intake to 2000mg per day. -Use Moderation when consuming alcohol. - To improve your health we recommend increasing your level of moderate exercise to at least 2.5 hrs per week. For more information, please visit the CDC Exercise and Fitness Recommendations at www.cdc.gov/physical activity/basics/inde x.htm 3. Major depression in partial remission (F32.4: Major depressive disorder, single episode, in partial remission) Stable with current medication management maintaining amitriptyline along with Wellbutrin and Abilify. 4. Postoperative malabsorption (K91.2: Postsurgical malabsorption, not elsewhere classified) Stable, continue with laboratories as planned through gastric bypass surgeon in the [facility] next spring. She is continue with multivitamin supplementation 5. Chronic seasonal allergic rhinitis (J30.2: Other seasonal allergic rhinitis) May continue with antihistamines and nasal steroids as needed. 6. Asthma, moderate persistent (J45.40: Moderate persistent asthma, uncomplicated) Stable without use of inhaler at this point always remain vigilant with weather change and seasonal flux. 7. Overweight (E66.3: Overweight) The standard range for ages 18 and older is >=18.5 and < 25 kg/m2. Your BMI today was above this range, this falls in the overweight to obese category and there are medical benefits to weight loss. We can offer counselling, referral, and/or medical support in addressing this problem. Your BMI and weight management will be followed at subsequent visits. 8. BMI 30.0-30.9,adult (Z68.30: Body mass index [BMI] 30.0-30.9, adult) See #7 9. Screening mammogram, encounter for (Z12.31: Encounter for screening mammogram for malignant neoplasm of breast) Order is placed plan is to schedule herself Ordered: MA Mamm Screen w/CAD if perf and 3D Piero Orders: buPROPion, 300 mg = 1 tab(s), Oral, Daily, # 90 tab(s), Refills(s) 1, Pharmacy: [facility], 167, cm, 03/01/23 15:57:00 EDT, Height/Length Dosing, 84, kg, 03/01/23 (more content not included)... Normal [facility] Comment on above: Result Comment: Elec tronically Signed By: KIP MARTE, Eldon\.oscar\Date and Time Signed: 03/01/23 17:35 EDT Patient Educationon 02-29-20 Patient Education Mental and Behavioral Health Insomnia Insomnia is a sleep disorder that makes it difficult to fall asleep or stay asleep. Insomnia can cause fatigue, low energy, difficulty concentrating, mood swings, and poor performance at work or school. There are three different ways to classify insomnia: ? Difficulty falling asleep. ? Difficulty staying asleep. ? Waking up too early in the morning. Any type of insomnia can be long-term (chronic) or short-term (acute). Both are common. Short-term insomnia usually lasts for 3 months or less. Chronic insomnia occurs at least three times a week for longer than 3 months. What are the causes? Insomnia may be caused by another condition, situation, or substance, such as: ? Having certain mental health conditions, such as anxiety and depression. ? Using caffeine, alcohol, tobacco, or drugs. ? Having gastrointestinal conditions, such as gastroesophageal reflux disease (GERD). ? Having certain medical conditions. These include: ? Asthma. ? Alzheimer's disease. ? Stroke. ? Chronic pain. ? An overactive thyroid gland (hyperthyroidism). ? Other sleep disorders, such as restless legs syndrome and sleep apnea. ? Menopause. Sometimes, the cause of insomnia may not be known. What increases the risk? Risk factors for insomnia include: ? Gender. Females are affected more often than males. ? Age. Insomnia is more common as people get older. ? Stress and certain medical and mental health conditions. ? Lack of exercise. ? Having an irregular work schedule. This may include working night shifts and traveling between different time zones. What are the signs or symptoms? If you have insomnia, the main symptom is having trouble falling asleep or having trouble staying asleep. This may lead to other symptoms, such as: ? Feeling tired or having low energy. ? Feeling nervous about going to sleep. ? Not feeling rested in the morning. ? Having trouble concentrating. ? Feeling irritable, anxious, or depressed. How is this diagnosed? This condition may be diagnosed based on: ? Your symptoms and medical history. Your health care provider may ask about: ? Your sleep habits. ? Any medical conditions you have. ? Your mental health. ? A physical exam. How is this treated? Treatment for insomnia depends on the cause. Treatment may focus on treating an underlying condition that is causing the insomnia. Treatment may also include: ? Medicines to help you sleep. ? Counseling or therapy. ? Lifestyle adjustments to help you sleep better. Follow these instructions at home: Eating and drinking ? Limit or avoid alcohol, caffeinated beverages, and products that contain nicotine and tobacco, especially close to bedtime. These can disrupt your sleep. ? Do not eat a large meal or eat spicy foods right before bedtime. This can lead to digestive discomfort that can make it hard for you to sleep. Sleep habits ? Keep a sleep diary to help you and your health care provider figure out what could be causing your insomnia. Write down: ? When you sleep. ? When you wake up during the night. ? How well you sleep and how rested you feel the next day. ? Any side effects of medicines you are taking. ? What you eat and drink. ? Make your bedroom a dark, comfortable place where it is easy to fall asleep. ? Put up shades or blackout curtains to block light from outside. ? Use a white noise machine to block noise. ? Keep the temperature cool. ? Limit screen use before bedtime. This includes: ? Not watching TV. ? Not using your smartphone, tablet, or computer. ? Stick to a routine that includes going to bed and waking up at the same times every day and night. This can help you fall asleep faster. Consider making a quiet activity, such as reading, part of your nighttime routine. ? Try to avoid taking naps during the day so that you sleep better at night. ? Get out of bed if you are still awake after 15 minutes of trying to sleep. Keep the lights down, but try reading or doing a quiet activity. When you feel sleepy, go back to bed. General instructions ? Take odrq-nls-ocojvhh and prescription medicines only as told by your health care provider. ? Exercise regularly as told by your health care provider. However, avoid exercising in the hours right before bedtime. ? Use relaxation techniques to manage stress. Ask your health care provider to suggest some techniques that may work well for you. These may include: ? Breathing exercises. ? Routines to release muscle tension. ? Visualizing peaceful scenes. ? Make sure that you drive carefully. Do not drive if you feel very sleepy. ? Keep all follow-up visits. This is important. Contact a health care provider if: ? You are tired throughout the day. ? You have trouble in your daily routine due to sleepiness. ? You continue to have sleep problems, or your sleep prob (more content not included)... Normal [facility] U24 Calciumon 01-30-2023 Calcium (24H U) [Mass/Time] 93 mg/24hr Invalid Interpretation Code 0-320 [facility] Comment on above: Result Comment: Perf ormed at: [address] [id number] PhD Carmen Don Performed By: #### 1 [id number], [id number], 7147220, 4584469, 81199194, 2427655, 560004596, 1922452, 2380218, 5181687 ####[facility] [address] [place] [address] Calcium (24H U) [Mass/Vol] 3.1 mg/dL Invalid Interpretation Code Not Estab. [facility] Comment on above: Performed By: #### 1 [id number], [id number], 0135442, 1386987, 87595144, 0890369, 234690351, 1505332, 9656930, 6564725 ####[facility] [address] [place] [address] U24 Citrateon 01-30-2023 Citrate (24H U) [Mass/Time] 297 mg/24hr Low 320-1240 [facility] Comment on above: Result Comment: This test was developed and its performance characteristics determined by [facility]. It has not been cleared or approved by the Food and Drug Administration. Performed at: [address] [id number] MD Brian Brewster Performed By: #### 1 [id number], [id number], 9302989, 7177107, 42545963, 4017640, 876175498, 8689512, 7502712, 3775698 ####[facility] [address] [place] [address] Citrate (24H U) [Mass/Vol] 99 mg/L Invalid Interpretation Code Undefined [facility] Comment on above: Performed By: #### 1 3104738, 16887452, 9368942, 7914268, 94392730, 7597589, 415801179, 5307526, 4965462, 7999202 ####[facility] [address] [place] [address] U24 Magnesiumon 01-30-2023 Magnesium (24H U) [Mass/Time] 132.0 mg/24hr Invalid Interpretation Code 12.0-293.0 [facility] Comment on above: Result Comment: Perf ormed at: [facility] [address] [address] [place], [place] [id number] PhD Carmen Don Performed By: #### 1 9148530, 16609768, 5420441, 6112931, 73553453, 3784257, 054663522, 9877128, 1648111, 6942697 ####[facility] [address] [place] [address] Magnesium (U) [Mass/Vol] 4.4 mg/dL Invalid Interpretation Code Not Estab. [facility] Comment on above: Performed By: #### 1 9975633, 56265291, 7716969, 3899364, 18646046, 5941331, 049008788, 2955870, 9120253, 3451563 ####[facility] [address] [place] [address] U24 Oxalateon 01-30-2023 Oxalate (24H U) [Mass/Time] 45 mg/24hr High 4-31 [facility] Comment on above: Result Comment: Perf ormed at: [facility] [id number] MD Brian Brewster Performed By: #### 1 9415004, 46129590, 6858434, 8339832, 90304989, 0594855, 750033684, 6781034, 9243233, 4998468 ####[facility] [address] [place] [address] Oxalate (U) [Mass/Vol] 15 mg/L Invalid Interpretation Code Undefined [facility] Comment on above: Performed By: #### 1 4763559, 74704888, 0509242, 3441221, 01292089, 6325659, 009681076, 4252462, 7064584, 8765630 ####[facility] [address] [place] [address] U24 Phosphoruson 01-30-2023 Phosphate (24H U) [Mass/Time] 618 mg/24hr Invalid Interpretation Code 261-1078 [facility] Comment on above: Result Comment: Perf ormed at: [address] [id number] PhD Carmen Don Performed By: #### 1 5351598, 85214524, 8777193, 4442619, 17737621, 5142508, 180246805, 8318244, 8519595, 1192485 ####[address] [place] [address] Phosphate (U) [Mass/Vol] 20.6 mg/dL Invalid Interpretation Code Not Estab. [facility] Comment on above: Performed By: #### 1 1541129, 31467515, 6190612, 1260558, 28525220, 0049582, 986758538, 8129842, 4258105, 4268916 ####[address] [place] [address] U24 Uric Acidon 01-30-2023 Urate (24H U) [Mass/Time] 384.0 mg/24hr Invalid Interpretation Code 173.7-902.1 [facility] Comment on above: Result Comment: Perf ormed at: [address] [id number] PhD Carmen Don Performed By: #### 1 2157062, 97499511, 7967774, 9078233, 05865529, 1697913, 210839829, 9297641, 7895875, 7559453 ####[facility] [address] [place] [address] Urate (U) [Mass/Vol] 12.8 mg/dL Invalid Interpretation Code Not Estab. [facility] Comment on above: Performed By: #### 1 9935199, 32781505, 9061958, 2078975, 01847314, 6394807, 667755236, 2880085, 9888247, 9788235 ####[facility] [address] [place] [address] CHEMISTRYOrdered By: Armando Flores on 01-28-2023 Creatine (U) [Moles/Vol] 49.4 mg/dL Normal >=10.0mg/dL [facility] Remisol Creatinine (24H U) [Moles/Time] 1482.0 mg/24hr Normal 1000.0 - 2000.0 mg/24hr [facility] Chem S Hrs Reynaldo 24 h Invalid Interpretation Code [facility] Chem S Sodium (24H U) [Mass/Vol] 102 mmol/24 hr Normal 40 - 220 mmol/24 hr [facility] Chem S Sodium (U) [Moles/Vol] 34 mmol/L Normal >=10mmol/L [facility] Remisol Laboratory - Specimen inform ationOrdered By: Angelia Almonte on 01-28-2023 Specimen volume Unsp time (U) 3000 mL Invalid Interpretation Code [facility] SendOutsSS Physician Orderon 01-28-2023 Physician Order [id number]#[id number]:127 Normal [facility] Reference Laboratory Testing Ordered By: Angelia Almonte on 01-28-2023 Hrs Reynaldo Ref Lab 24 h Invalid Interpretation Code [facility] U24 Creatinineon 01-28-2023 Creatinine (24H U) [Moles/Time] 1482.0 mg/24hr Normal 1000.0-2000.0 [facility] Comment on above: Performed By: #### 1 8084374, 42503716, 1878634, 5468917, 30042657, 4004334, 386698777, 5638760, 1792310, 4543212 ####[facility] [address] [place] [address] Creatine (U) [Moles/Vol] 49.4 mg/dL Normal >=10.0 [facility] Comment on above: Performed By: #### 1 3974235, 95495761, 7114282, 9757937, 01278269, 4392609, 641891898, 0994511, 9584437, 5522129 ####[facility] [address] [place] [address] U24 Sodiumon 01-28-2023 Sodium (24H U) [Mass/Vol] 102 mmol/24hr Normal 40-220 [facility] Comment on above: Performed By: #### 1 0083136, 94596144, 9554957, 0599889, 08276940, 9803366, 073267009, 0676869, 9229434, 5723226 ####[facility] [address] [place] [address] Sodium (U) [Moles/Vol] 34 mmol/L Normal >=10 [facility] Comment on above: Performed By: #### 1 2585195, 51907325, 2083115, 2526714, 74338802, 8260736, 851252280, 6459527, 8410979, 4363474 ####[facility] [address] [place] [address] U24 Total Volon 01-28-2023 Hrs Reynaldo 24 hour(s) Invalid Interpretation Code [facility] Comment on above: Order Comment: Order added by Discern Expert Performed By: #### 1 4697628, 45812965, 9930216, 3595273, 89307513, 9805673, 957765845, 1453814, 3401812, 2951959 ####[facility] [address] [place] [address] Specimen volume Unsp time (U) 3000 mL Invalid Interpretation Code [facility] Comment on above: Order Comment: Order added by Discern Expert Performed By: #### 1 0801600, 44322463, 1259755, 7322328, 17039776, 8457958, 482376688, 0131256, 8382891, 4888588 ####[facility] [address] [place] [address] Urine Vol/Per Ref Labon 01-09 Hrs Reynaldo Ref Lab 24 hour(s) Invalid Interpretation Code [facility] Comment on above: Order Comment: Order added by Discern Expert Performed By: #### 1 8428714, 12418599, 4047515, 4181340, 05345828, 1177704, 930985739, 0382317, 8949816, 4658883 ####[facility] [address] [place] [address] Specimen volume Unsp time (U) 3000 mL Invalid Interpretation Code [facility] Comment on above: Order Comment: Order added by Discern Expert Performed By: #### 1 2089337, 08990009, 1063397, 8938742, 05962881, 0053522, 537716514, 3685207, 9771191, 5311639 ####[facility] [address] [place] [address] Ambulatory Visit Summaryon 0 01-07-2023 Ambulatory Visit Summary MALICK VIVIANE Licha :1980 Visit Date:01/07/2023 Ambulatory Visit Instructions Your Diagnosis Kidney stone Urinary frequency Tests Performed Urnls Dip Stick Auto w/o Microscopy POC 95659 Your Care Team Attending Physician - SUNITHA MARTE, Francisco Gonzalez Primary Care Physician - KIP MARTE, Eldon This Is Your Medications List Contact prescribing physician if questions or concerns amitriptyline (amitriptyline 10 mg Tab) aripiprazole (Abilify 5 mg Tab) bifidobacterium infantis (Align 4 mg oral capsule) buPROPion (buPROPion 300 mg/24 hours ER Tab) calcium citrate cetirizine (ZyrTEC 10 mg Tab) cholecalciferol (Vitamin D3 1000 intl units oral capsule) collagen topical (collagen topical powder) hydrochlorothiazide (hydrochlorothiazide 12.5 mg Cap) multivitamin with minerals (Celebrate Multivitamin oral tablet, chewable) naproxen (naproxen 500 mg Tab) polyethylene glycol 3350 (Miralax 17 gram packet) potassium chloride (potassium chloride 20 mEq ER Tab) psyllium (Metamucil 525 mg oral capsule) tirzepatide (Mounjaro 15 mg/0.5 mL subcutaneous solution) Procedures Performed Colonoscopy (10/28/2020), Cystoscopy (08/31/2020), ESWL of kidney (08/11/2020), ESWL of kidney (08/04/2020), ESWL of kidney (07/28/2020), Bariatric operative procedure (08/05/2018), right carpal tunnel release (02/05/2014), left carpal tunnel release (11/06/2013), section (02/18/2009), Arthroscopy of knee (1999), Operation on septum of nose (1997), Arthroscopy of wrist (1995), Operation on septum of nose (1995), Plastic excision of skin of abdominal wall, Removal of skin flap, tubal ligation, Vaginal hysterectomy. Discharge Vitals Heart Rate (Peripheral) 70 Respiratory Rate 16 Blood Pressure 109/73 Height 167 cm Height 66 in Weight 87.2 kg Weight 191.84 lb BMI 31.27 What to do next Scheduled Follow-Up Appointments 2022 8:00 AM EDT With: Eldon SHIN MD Where: [facility] [place] [address] [place] [address] [place] [address]- \.br\ You Need to Schedule the Following Appointments\.br\ Follow Up with SUNITHA MARTE, Francisco Gonzalez, URL When: \.br\ Comments:\.br\ 24hr urine to be completed in January\.br\ Where:\.br\ [facility] [address]\.br\ [place] [address]-\.br\ [id number]\.br\ You Need to Complete the Following\.br\ XR Abdomen 1 View, *Est. 01/08/24 +/- 30 day(s), Routine, Order for future visit, Transport Mode: Ambulatory, Reason: Kidney stone, No, Kidney stone, pp_set_radiology_sub specialty, [facility]\.br\ Medications\.br\ What How Much When Why Instructions\.br\ Unchanged amitriptyline (amitriptyline 10 mg Tab) See instructions Take upto 3 tabs at bedtime for insomnia Contact prescribing physician if questions or concerns \.br\ Unchanged aripiprazole (Abilify 5 mg Tab) 1 Tablets By Mouth Every day discontinue Fuoxetine Contact prescribing physician if questions or concerns \.br\ Unchanged bifidobacterium infantis (Align 4 mg oral capsule) 1 Capsules By Mouth Every day Change in bowel habits Take after completing the Antibiotics course Contact prescribing physician if questions or concerns \.br\ Unchanged buPROPion (buPROPion 300 mg/ 24 hours ER Tab) 1 Tablets By Mouth Every day Contact prescribing physician if questions or concerns \.br\ Unchanged calcium citrate 500 Milligram By Mouth 3 times a day Contact prescribing physician if questions or concerns \.br\ Unchanged cetirizine (ZyrTEC 10 mg Tab) 1 Tablets By Mouth Every day Contact prescribing physician if questions or concerns \.br\ Unchanged cholecalciferol (Vitamin D3 1000 intl units oral capsule) 5 Capsules By Mouth Every day Contact prescribing physician if questions or concerns \.br\ Unchanged collagen topical (collagen topical powder) 2 times a day Contact prescribing physician if questions or concerns \.br\ Unchanged hydrochlorothiazide (hydrochlorothiazide 12.5 mg Cap) 1 Capsules By Mouth Every day Duration: 90 Days Contact prescribing physician if questions or concerns \.br\ Unchanged multivitamin with minerals (Celebrate Multivitamin oral tablet, chewable) 1 Tablets Chewed 2 times a day Contact prescribing physician if questions or concerns \.br\ Unchanged naproxen (naproxen 500 mg Tab) 1 Tablets By Mouth 2 times a day Take one tab by mouth two times a day Contact prescribing physician if questions or concerns \.br\ Unchanged polyethylene glycol 3350 (Miralax 17 gram packet) 17 Gram By Mouth Every day dissolve in water before taking Contact prescribing physician if questions or concerns \.br\ Unchanged potassium chloride (potassium chloride 20 mEq ER Tab) 1 Tablets By Mouth Every day Contact prescribing physician if questions or concerns \.br\ Unchanged psyllium (Metamucil 525 mg oral capsule) 2 Capsules By Mouth Every day Change in bowel habits Take 2 hour apart from the other medications with at least 8 ounces of water Contact prescribing physician if questions or concerns \.br\ Unchanged tirzepatide (Mounjaro 15 mg/ 0.5 mL subcutaneous solution) 15 Milligram Subcutaneous Every week Contact prescribing physician if questions or concerns \.br\ Test Results\.br\ Urnls Dip Stick Auto w/o Microscopy POC 19654 (01/07/2023)\.br\ Bilirubin Urine Dipstick - Negative\.br\ Blood Urine Dipstick - Trace-intact\.br\ Glucose Urine Dipstick - Negative\.br\ Ketones Urine Dipstick - Negative\.br\ Leukocytes Urine Dipstick - Negative\.br\ Nitrite Urine Dipstick - Negative\.br\ Protein Urine Dipstick - Negative\.br\ Specific [place] Urine Dipstick - 1.015\.br\ Urine Appearance Urine Dipstick - Clear\.br\ Urine Color Urine Dipstick - Yellow\.br\ Urobilinogen Urine Dipstick - Normal 0.2-1 EU/dl\.br\ pH Urine Dipstick - 7.5\.br\ Allergies\.br\ GRASS, POLLEN, TREES, WEEDS,MOLD, ANIMAL DANDER\.br\ No Known Medication Allergies\.br\ Problems\.br\ Ongoing - Any problem that you are currently receiving treatment for.\.br\ Actinic keratoses\.br\ Asthma, moderate persistent\.br\ Bilateral nephrolithiasis\.br\ BMI 29.0-29.9,adult\.br\ Chronic insomnia\.br\ Chronic seasonal allergic rhinitis\.br\ Encounter for well adult exam with abnormal findings\.br\ Essential hypertension\.br\ Essential tremor\.br\ Hypokalemia\.br\ Inflamed seborrheic keratosis\.br\ Kidney stone\.br\ Major depression in partial remission\.br\ Muscle twitching\.br\ Obstructive sleep apnea\.br\ Onychomycosis of left great toe\.br\ Personal history of gastric bypass\.br\ Postoperative malabsorption\.br\ Screening mammogram, encounter for\.br\ Urinary frequency\.br\ Historical - Any problem that you are no longer receiving treatment for.\.br\ Carpal tunnel syndrome\.br\ Depression, Mild\.br\ Dysesthesia\.br\ Frontal sinusitis\.br\ History of - section\.br\ History of - severe pre-eclampsia\.br\ Hypermenorrhea\.br\ MRSA\.br\ Obesity due to excess calories\.br\ Otalgia of right ear\.br\ Overweight\.br\ PINK EYE RIGHT\.br\ Placental abruption\.br\ Right acute serous otitis media\.br\ subconjunctive hemorrhage\.br\ Uterine rupture\.br\ Education Materials\.br\ Dietary Guidelines to Help Prevent Kidney Stones\.br\ Kidney stones are deposits of minerals and salts that form inside your kidneys. Your risk of developing kidney stones may be greater depending on your diet, your lifestyle, the medicines you take, and whether you have certain medical conditions. Most people can lower their chances of developing kidney stones by following the instructions below. Your dietitian may give you more specific instructions depending on your overall health and the type of kidney stones you tend to develop.\.br\ What are tips for following this plan?\.br\ Reading food labels\.br\ \.br\ ? \.br\ Choose foods with no salt added or low-salt labels. Limit your salt (sodium) intake to less than 1,500 mg a day.\.br\ ? \.br\ Choose foods with calcium for each meal and snack. Try to eat about 300 mg of calcium at each meal. Foods that contain 200?500 mg of calcium a serving include:\.br\ ? \.br\ 8 oz (237 mL) of milk, calcium-fortifiednon -dairy milk, and calcium-fortifiedfru it juice. Calcium-fortified means that calcium has been added to these drinks.\.br\ ? \.br\ 8 oz (237 mL) of kefir, yogurt, and soy yogurt.\.br\ ? \.br\ 4 oz (114 g) of tofu.\.br\ ? \.br\ 1 oz (28 g) of cheese.\.br\ ? \.br\ 1 cup (150 g) of dried figs.\.br\ ? \.br\ 1 cup (91 g) of cooked broccoli.\.br\ ? \.br\ One 3 oz (85 g) can of sardines or mackerel.\.br\ Most people need 1,000?1,500 mg of calcium a day. Talk to your dietitian about how much calcium is recommended for you.\.br\ Shopping\.br\ ? \.br\ Buy plenty of fresh fruits and vegetables. Most people do not need to avoid fruits and vegetables, even if these foods contain nutrients that may contribute to kidney stones.\.br\ ? \.br\ When shopping for convenience foods, choose:\.br\ ? \.br\ Whole pieces of fruit.\.br\ ? \.br\ Pre-made salads with dressing on the side.\.br\ ? \.br\ Low-fat fruit and yogurt smoothies.\.br\ ? \.br\ Avoid buying frozen meals or prepared deli foods. These can be high in sodium.\.br\ ? \.br\ Look for foods with live cultures, such as yogurt and kefir.\.br\ ? \.br\ Choose high-fiber grains, such as whole-wheat breads, oat bran, and wheat cereals.\.br\ Cooking\.br\ ? \.br\ Do not add salt to food when cooking. Place a salt shaker on the table and allow each person to add his or her own salt [facility] Patient Educationon 01-08-20 Patient Education Nephrology Dietary Guidelines to Help Prevent Kidney Stones Kidney stones are deposits of minerals and salts that form inside your kidneys. Your risk of developing kidney stones may be greater depending on your diet, your lifestyle, the medicines you take, and whether you have certain medical conditions. Most people can lower their chances of developing kidney stones by following the instructions below. Your dietitian may give you more specific instructions depending on your overall health and the type of kidney stones you tend to develop. What are tips for following this plan? Reading food labels ? Choose foods with no salt added or low-salt labels. Limit your salt (sodium) intake to less than 1,500 mg a day. ? Choose foods with calcium for each meal and snack. Try to eat about 300 mg of calcium at each meal. Foods that contain 200?500 mg of calcium a serving include: ? 8 oz (237 mL) of milk, calcium-fortifiednon -dairy milk, and calcium-fortifiedfru it juice. Calcium-fortified means that calcium has been added to these drinks. ? 8 oz (237 mL) of kefir, yogurt, and soy yogurt. ? 4 oz (114 g) of tofu. ? 1 oz (28 g) of cheese. ? 1 cup (150 g) of dried figs. ? 1 cup (91 g) of cooked broccoli. ? One 3 oz (85 g) can of sardines or mackerel. Most people need 1,000?1,500 mg of calcium a day. Talk to your dietitian about how much calcium is recommended for you. Shopping ? Buy plenty of fresh fruits and vegetables. Most people do not need to avoid fruits and vegetables, even if these foods contain nutrients that may contribute to kidney stones. ? When shopping for convenience foods, choose: ? Whole pieces of fruit. ? Pre-made salads with dressing on the side. ? Low-fat fruit and yogurt smoothies. ? Avoid buying frozen meals or prepared deli foods. These can be high in sodium. ? Look for foods with live cultures, such as yogurt and kefir. ? Choose high-fiber grains, such as whole-wheat breads, oat bran, and wheat cereals. Cooking ? Do not add salt to food when cooking. Place a salt shaker on the table and allow each person to add his or her own salt to taste. ? Use vegetable protein, such as beans, textured vegetable protein (TVP), or tofu, instead of meat in pasta, casseroles, and soups. Meal planning ? Eat less salt, if told by your dietitian. To do this: ? Avoid eating processed or pre-made food. ? Avoid eating fast food. ? Eat less animal protein, including cheese, meat, poultry, or fish, if told by your dietitian. To do this: ? Limit the number of times you have meat, poultry, fish, or cheese each week. Eat a diet free of meat at least 2 days a week. ? Eat only one serving each day of meat, poultry, fish, or seafood. ? When you prepare animal protein, cut pieces into small portion sizes. For most meat and fish, one serving is about the size of the palm of your hand. ? Eat at least five servings of fresh fruits and vegetables each day. To do this: ? Keep fruits and vegetables on hand for snacks. ? Eat one piece of fruit or a handful of berries with breakfast. ? Have a salad and fruit at lunch. ? Have two kinds of vegetables at dinner. ? Limit foods that are high in a substance called oxalate. These include: ? Spinach (cooked), rhubarb, beets, sweet potatoes, and [place] chard. ? Peanuts. ? Potato chips, eritrean fries, and baked potatoes with skin on. ? Nuts and nut products. ? Chocolate. ? If you regularly take a diuretic medicine, make sure to eat at least 1 or 2 servings of fruits or vegetables that are high in potassium each day. These include: ? Avocado. ? Banana. ? Trinity, prune, carrot, or tomato juice. ? Baked potato. ? Cabbage. ? Beans and split peas. Lifestyle ? Drink enough fluid to keep your urine pale yellow. This is the most important thing you can do. Spread your fluid intake throughout the day. ? If you drink alcohol: ? Limit how much you use to: ? 0?1 drink a day for women who are not . ? 0?2 drinks a day for men. ? Be aware of how much alcohol is in your drink. In the [place] one drink equals one 12 oz bottle of beer (355 mL), one 5 oz glass of wine (148 mL), or one 1? oz glass of hard liquor (44 mL). ? Lose weight if told by your health care provider. Work with your dietitian to find an eating plan and weight loss strategies that work best for you. General information ? Talk to your health care provider and dietitian about taking daily supplements. You may be told the following depending on your health and the cause of your kidney stones: ? Not to take supplements with vitamin C. ? To take a calcium supplement. ? To take a daily probiotic supplement. ? To take other supplements such as magnesium, fish oil, or vitamin B6. ? Take [id number] and prescription medicines only as told by your health care provider. These include supplements. What foods should I limit? Limit your in (more content not included)... Normal [facility] Reminderson 01-07-2023 Reminders - From: Drea Alvarado To: HAFSA Saxena Recalls Helton; Sent: 01/07/2023 10:12:06 EDT Show up: 12/08/2023 10:11:00 EDT Subject: KUB Reminder Message Please Remember to:_have pt get KUB (at [facility]). Normal [facility] Urology Office/Clinic Noteon 01-07-2023 Urology Office/Clinic Note Chief Complaint kidney stone HPI Staff 6 month f/u with KUB. Previous dx of kidney stone and urinary frequency. Hydrochlorothiazide 12.5mg therapy QD. Dysuria: no Incomplete bladder emptying: no Hematuria: no Frequency: no Urgency: no Nocturia: no Stream: good steady no straining Leaking: no Post void dripping: no Wearing pads/ Depends: no Urge incontinence: no Stress incontinence: yes with jumping Incontinence without Sensory Awareness: no Abdominal pain: no Flank pain: no Sexual complaints: no History of Present Illness Tests reviewed: reviewed UA, KUB I have reviewed the previous health record information and history for this patient from JUDY Varner. I have reviewed and verified the staff HPI to be accurate for this encounter. There have been no associated fever, chills, flank pain, or blood in the urine. Denies any urinary infections since last encounter. Review of Systems PHQ Score Initial Depression Screen Score: 0 ROS - Provider Constitutional: denies weight loss, denies hot flashes. Eyes: denies eye problems. Gastrointestinal: denies nausea, denies vomiting. Cardiovascular: denies chest pain or angina. Integumentary: no dryness Musculoskeletal: denies musculoskeletal symptoms. ENMT: denies otolaryngeal symptoms. Respiratory: no shortness of breath. Heme/Lymph: denies easy bleeding tendency, denies easy bruising tendency. Psychiatric: no confusion, no anxiety. Genitourinary: See HPI. Physical Exam Vitals & Measurements HR: 70(Peripheral) RR: 16 BP: 109/73 HT: 66 in HT: 167 cm WT: 87.2 kg WT: 191.84 lb BMI: 31.27 General Appearance: alert , no acute distress, well nourished, well developed female. Genitourinary: bladder nonpalpable, no flank pain. Assessment/Plan 1. Kidney stone (N20.0: Calculus of kidney) S/p R ESWL/stent placement 08/04/20 and R ESWL/stent removal 08/11/20. Stone analysis 08/31/20 - 75% Tama CaOx, 20% Di CaOx. KUB done 01/03/23 showed unchanged, left mid and left lower pole calcifications measuring up to 2mm. Discussed difficulty in verifying presence of stones on personal review due to intense bowel contents. Pt to continue HCTZ 12.5mg [1]. Pt to call for refills. Pt is now taking potassium chloride 20mEq QD per PCP, BMP from 08/24/22 is wnl. Pt states she continues drinking 2 liters of water per day. Pt to do a repeat 24hr urine in January. Will call pt with results. All questions/concerns were discussed. Pt to call the office if she encounters any issues prior. Pt acknowledges understanding. 2. Urinary frequency (R35.0: Frequency of micturition) Pt c/o frequency/urgency at prior office visit. Negative UCx 07/10/22. UA today shows trace-intact blood. Follow-up With When Contact Information SUNITHA MARTE, Francisco Gonzalez, [facility] [address], [place] [address] [phone] Additional Instructions: 24hr urine to be completed in January Patient Education Dietary Guidelines to Help Prevent Kidney Stones I, Drea Alvarado, personally scribed for Dr. Helton on 01/07/2023 09:40:56. . Documentation recorded by the scribe, Drea Alvarado, accurately reflects the services(s) I performed and decisions made by me. Authenticated by Dr. Helton on 01/07/2023 09:44:37. Problem List/Past Medical History Ongoing Actinic keratoses Asthma, moderate persistent Bilateral nephrolithiasis BMI 29.0-29.9,adult Chronic insomnia Chronic seasonal allergic rhinitis Encounter for well adult exam with abnormal findings Essential hypertension Essential tremor Hypokalemia Inflamed seborrheic keratosis Kidney stone Major depression in partial remission Muscle twitching Obstructive sleep apnea Onychomycosis of left great toe Personal history of gastric bypass Postoperative malabsorption Screening mammogram, encounter for Urinary frequency Historical Carpal tunnel syndrome Depression, Mild Dysesthesia Frontal sinusitis History of - section History of - severe pre-eclampsia Hypermenorrhea MRSA Obesity due to excess calories Otalgia of right ear Overweight PINK EYE RIGHT Placental abruption Right acute serous otitis media subconjunctive hemorrhage Uterine rupture Procedure/Surgical History Colonoscopy (10/28/2020), Cystoscopy (08/31/2020), ESWL of kidney (08/11/2020), ESWL of kidney (08/04/2020), ESWL of kidney (07/28/2020), Bariatric operative procedure (08/05/2018), right carpal tunnel release (02/05/2014), left carpal tunnel release (11/06/2013), section (02/18/2009), Arthroscopy of knee (1999), Operation on septum of nose (1997), Arthroscopy of wrist (1995), Operation on septum of nose (1995), Plastic excision of skin of abdominal wall, Removal of skin flap, tubal ligation, Vaginal hysterectomy. Medications Abilify 5 mg Tab, 5 mg= 1 tab(s), Oral, Daily, 1 refills Align 4 mg oral capsule, 4 mg= 1 cap(s), Oral, Daily ami (more content not included)... Normal [facility] Comment on above: Result Comment: Elec tronically Signed By: Francisco HELTON MD\.br\Date and Time Signed: 01/07/23 09:44 EDT\.br\Electronically Co-Signed By: Drea Alvarado\.br\Date and Time Co-Signed: 01/07/23 09:41 EDT XR Abdomen 1 Viewon 01-06-20 XR Abdomen 1 View Exam Date/Time: 01/03/2023 16:03 EDT Reason for Exam: Calculus of kidney;Kidney stone Report IMPRESSION: LEFT RENAL CALCULI, UNCHANGED. CLINICAL HISTORY: Kidney stone, Calculus of kidney COMPARISON: KUB, July 10, 2022. FINDINGS: Surgical clips, right and left abdomen, unchanged. Gas and stool in colon. Gas in small bowel. No diffuse small bowel dilatation or mass effect. The calcifications overlying the region of the left mid and left lower pole are again identified and unchanged, measuring up to 2 mm. Ordering Provider: , FINAL REPORT Dictated: 01/05/2023 11:51 am Brayan Fermin MD Signed (Electronic Signature): 01/05/2023 11:51 am Signed by: Brayan Fermin MD Transcribed by: MADELINE Technologist: JORDIN Technical Comments Radiation Dose: Ka,r in mGy = na DAP = na [facility] Consent for Treatmenton 12-09 Consent for Treatment [id number] #[id number]:[id number] Normal [facility] CHEMISTRYOrdered By: SYSTEM SYSTEM on 08-24-2022 25-hydroxyvitamin D3 [Mass/Vol] 84.2 ng/mL Normal 30.0 - 100.0 ng/mL [facility] Albumin [Mass/Vol] 4.8 g/dL Normal 3.3 - 5.0 gm/dL [facility] Albumin/Globulin [Mass ratio] 1.9 {ratio} Normal 1.1 - 2.2 [facility] ALP [Catalytic activity/Vol] 44 [iU]/d Normal 21 - 98 Int._Unit/L [facility] ALT No additional P-5'-P [Catalytic activity/Vol] 18 [iU]/d Normal 6 - 46 Int._Unit/L [facility] Anion gap [Moles/Vol] 14 mmol/L Normal 6 - 16 mEq/L [facility] AST [Catalytic activity/Vol] 21 [iU]/d Normal 5 - 43 Int._Unit/L [facility] Bilirubin [Mass/Vol] 0.5 mg/dL Normal 0.0 - 1.1 mg/dL [facility] Calcium [Mass/Vol] 9.3 mg/dL Normal 8.9 - 11.1 mg/dL [facility] Chloride [Moles/Vol] 101 mmol/L Normal 101 - 111 mmol/L [facility] Cholesterol [Mass/Vol] 171 mg/dL Normal 120 - 200 mg/dL [facility] Cholesterol in HDL [Mass/Vol] 75 mg/dL Invalid Interpretation Code [facility] Cholesterol in LDL [Mass/Vol] 80 mg/dL Normal <=129mg/dL [facility] Cholesterol in VLDL [Mass/Vol] 13 mg/dL Normal 7 - 40 mg/dL [facility] CO2 [Moles/Vol] 27 mmol/L Normal 21 - 31 mmol/L [facility] Cobalamin (Vitamin B12) [Mass/Vol] 1165 pg/mL Normal 50 - 1500 pg/mL [facility] Creatinine [Mass/Vol] 0.9 mg/dL Normal 0.5 - 1.3 mg/dL [facility] Ferritin [Mass/Vol] 204 ng/mL Normal 11 - 307 ng/mL [facility] Folate [Mass/Vol] ng/mL Normal >=6.7ng/mL [facility] GFR/1.73 sq M.predicted among blacks MDRD (S/P/Bld) [Vol rate/Area] mL/min/1.73 m2 Normal >=59mL/min/1.73 m2 [facility] S GFR/1.73 sq M.predicted among non-blacks MDRD (S/P/Bld) [Vol rate/Area] mL/min/1.73 m2 Normal >=59mL/min/1.73 m2 [facility] S Globulin (S) [Mass/Vol] 2.5 g/dL Normal 1.4 - 4.0 gm/dL [facility] Glucose [Mass/Vol] 83 mg/dL Normal 55 - 199 mg/dL [facility] Iron [Mass/Vol] 68 ug/dL Normal 35 - 153 mcg/dL [facility] Iron binding capacity [Mass/Vol] 277 ug/dL Normal 250 - 400 mcg/dL [facility] Potassium [Moles/Vol] 3.8 mmol/L Normal 3.5 - 5.3 mmol/L [facility] Protein [Mass/Vol] 7.3 g/dL Normal 6.0 - 7.8 gm/dL [facility] Sodium [Moles/Vol] 138 mmol/L Normal 135 - 145 mmol/L [facility] Transferrin [Mass/Vol] 198 mg/dL Low 200 - 370 mg/dL [facility] Triglyceride [Mass/Vol] 65 mg/dL Normal <=149mg/dL [facility] TSH Qn 1.70 m[IU]/L Normal 0.34 - 5.60 mcIU/mL [facility] Remisol Urea nitrogen [Mass/Vol] 12 mg/dL Normal 5 - 21 mg/dL [facility] Urea nitrogen/Creatinine [Mass ratio] 13 mg/mg Normal 10 - 20 [facility] CHEMISTRYOrdered By: Vijay ny on 08-24-2022 HbA1c (Bld) [Mass fraction] 4.8 % Normal <=5.9% [facility] HEMATOLOGYOrdered By: SYSTEM SYSTEM on 08-24-2022 Basophils/100 WBC (Bld) 0.6 % Normal 0.0 - 2.0 % [facility]eAutoSS Basophils/Leukocyte s Auto (Bld) [Pure # fraction] 0.0 E9/L Normal 0.0 - 0.2 E9/L [facility] Eosinophils/100 WBC (Bld) 0.7 % Normal 0.0 - 8.0 % [facility]eAutoSS Eosinophils/Leukocy anne Auto (Bld) [Pure # fraction] 0.0 E9/L Normal 0.0 - 0.5 E9/L [facility] Lymphocytes/100 WBC (Bld) 32.8 % Normal 14.0 - 50.0 % [facility]eAutoSS Lymphocytes/Leukocy anne Auto (Bld) [Pure # fraction] 1.6 E9/L Normal 1.0 - 4.0 E9/L [facility] Monocytes/100 WBC (Bld) 10.3 % Normal 4.0 - 14.0 % [facility]eAutoSS Monocytes/Leukocyte s Auto (Bld) [Pure # fraction] 0.5 E9/L Normal 0.2 - 1.0 E9/L [facility] Neutrophils/100 WBC (Bld) 55.6 % Normal 36.0 - 75.0 % [facility]eAutoSS Neutrophils/Leukocy anne Auto (Bld) [Pure # fraction] 2.8 E9/L Normal 2.0 - 7.5 E9/L [facility] HEMATOLOGYOrdered By: Carlotta Dubon on 08-24-2022 Erythrocyte distribution width (RBC) [Ratio] 13.6 % Normal 10.9 - 14.2 % [facility]eAuto[facility] Hematocrit (Bld) [Volume fraction] 43.8 % Normal 34.0 - 46.0 % [facility] Hemoglobin (Bld) [Mass/Vol] 14.5 g/dL Normal 12.0 - 16.0 gm/dL [facility] MCH (RBC) [Entitic mass] 32.0 pg Normal 27.0 - 34.0 pg [facility] MCHC (RBC) [Mass/Vol] 33.2 g/dL Normal 31.4 - 36.0 gm/dL [facility] MCV (RBC) [Entitic vol] 96.5 fL Normal 80.0 - 100.0 fL [facility] Platelet mean volume (Bld) [Entitic vol] 8.4 fL Normal 6.4 - 10.8 fL [facility] Platelets (Bld) [#/Vol] 232.0 E9/L Normal 150.0 - 500.0 E9/L [facility] RBC (Bld) [#/Vol] 4.5 E12/L Normal 4.3 - 5.9 E12/L [facility] HemeAutoSS WBC corrected for nucl RBC Auto (Bld) [#/Vol] 5.0 E9/L Normal 4.0 - 11.0 E9/L [facility] HemeAutoSS CHEMISTRYOrdered By: SYSTEM SYSTEM on 06-20-2022 Anion gap [Moles/Vol] 10 mmol/L Normal 6 - 16 mEq/L [facility] Remisol Calcium [Mass/Vol] 9.3 mg/dL Normal 8.9 - 11.1 mg/dL [facility] Chloride [Moles/Vol] 100 mmol/L Low 101 - 111 mmol/L [facility] CO2 [Moles/Vol] 27 mmol/L Normal 21 - 31 mmol/L [facility] Creatinine [Mass/Vol] 1.0 mg/dL Normal 0.5 - 1.3 mg/dL [facility] GFR/1.73 sq M.predicted among blacks MDRD (S/P/Bld) [Vol rate/Area] mL/min/1.73 m2 Normal >=59mL/min/1.73 m2 [facility] Chem S GFR/1.73 sq M.predicted among non-blacks MDRD (S/P/Bld) [Vol rate/Area] mL/min/1.73 m2 Normal >=59mL/min/1.73 m2 [facility] Chem S Glucose [Mass/Vol] 87 mg/dL Normal 55 - 199 mg/dL [facility] Remisol Magnesium [Mass/Vol] 2.2 mg/dL Normal 1.3 - 2.4 mg/dL [facility] Remisol Potassium [Moles/Vol] 3.2 mmol/L Low 3.5 - 5.3 mmol/L [facility] Sodium [Moles/Vol] 134 mmol/L Low 135 - 145 mmol/L [facility] Urea nitrogen [Mass/Vol] 14 mg/dL Normal 5 - 21 mg/dL [facility] Urea nitrogen/Creatinine [Mass ratio] 14 mg/mg Normal 10 - 20 [facility] CNPJessica 04-14-2021 ROVERTO Telephone ([facility]) MALICKVIVIANE ([id number]) 1980 F [facility] Date Time Provider Department 04/14/21 PEARL AMEZQUITA During your visit today, we recorded the following information about you: Pearl Amezquita PA-C 04/14/2021 10:57 AM Signed Good morning Dr. Mason, Your patient was seen for preanesthesia consult. She is scheduled for Panninculectomy with you on 04/24 under [facility] anesthesia at [facility]. Patient states that she is supposed to be having abdominoplasty surgery and brachioplasty surgery on both arms though, not a panninculectomy. She was told to might need overnight stay. However she is currently scheduled at [facility] which does not allow for this. There is a preop Covid test ordered as well. If patient is having outpatient surgery she does not require this. However she is being admitted she would. Can your office please confirm with patient on the type of surgery and if she is scheduled in the correct location. Thank you, Pearl Amezquita PA-C [facility] [place] Allergies As of Date: 04/14/2021 (No Known Allergies) Date Reviewed: 04/14/2021 Reviewed by: Pearl Amezquita PA-C - Fully Assessed Reason for Visit: PreOp Call [[id number]] Cmt: questions on upcoming surgery Prescriptions as of 06/27/2021 - mupirocin (BACTROBAN) 2 % ointment Apply to incisions twice daily - FLUoxetine (PROZAC) 20 mg capsule Take 1 capsule by mouth once daily. - buPROPion (WELLBUTRIN) 100 mg tablet Take 1 tablet by mouth three times daily. - melatonin 1 mg tablet Take 1 tablet by mouth as needed for for insomnia. - polyethylene glycol 3350 (MIRALAX) 17 gram/dose powder Take by mouth once daily. - Calcium Citrate 250 mg calcium tab Take 2 tablets by mouth three times daily. 2 tablets by mouth three times daily - vitamin D3-vitamin K2, MK4, 1,000-100 unit-mcg tab Take 1 capsule by mouth three times daily. - Lactobac no.41/Bifidobact no.7 (PROBIOTIC-10 ORAL) - diphenhydrAMINE (BENADRYL) 25 mg capsule - cetirizine (ZYRTEC) 10 mg tablet Take 10 mg by mouth. - multivitamin (MULTIPLE VITAMINS ORAL) Take by mouth. Problem List As Of Date 04/14/2021 Noted Resolved Obstructive sleep apnea [G47.33] 05/13/2018 02/26/2020 Essential hypertension [I10] 05/13/2018 02/26/2020 Morbid obesity (HCC) [E66.01] 06/23/2018 07/27/2019 Preoperative examination [Z01.818] 06/26/2018 07/27/2019 Acute postoperative pain [G89.18] 07/30/2018 04/14/2021 Obesity, Class III, BMI >= 40 [E66.01] 08/03/2018 07/27/2019 S/P gastric bypass [Z98.84] 08/13/2018 Obesity (BMI 30.0-34.9) [E66.9] 07/27/2019 Kidney stones, calcium oxalate [N20.0] 04/14/2021 Anxiety with depression [F41.8] 04/14/2021 History of hypertension [Z86.79] 04/14/2021 History of sleep apnea [Z86.69] 04/14/2021 Encounter Status:Closed by PEARL AMEZQUITA on 06/27/21 [facility] HISTORY PHYSICALon HISTORY PHYSICAL HNO ID: [id number] Author: Pearl Amezquita PA-C Service: ? Author Type: Physician Shift Boss Type: HANDP Filed: 04/14/2021 1:04 PM Note Text: HISTORY AND PHYSICAL EXAMINATION SERVICE DATE: 04/14/2021 SERVICE TIME: 10:16 AM PRIMARY CARE PHYSICIAN: Eldon Shin MD REASON FOR VISIT: Viviane Teresa is a 40 year old female who is scheduled for Panniculectomy at the request of Dr. Evan Mason for consultation. My final recommendation will be communicated back to the requesting physician by way of shared medical record or letter. The patient has the following: ACTIVE PROBLEM LIST S/P Gastric Bypass Obesity (Bmi 30.0-34.9) Anxiety With Depression History of Hypertension History of Sleep Apnea Subjective CHIEF COMPLAINT: Extra skin HPI: Patient is a 40 year old female presenting for pre-anesthesia consultation. Patient had gastric bypass surgery in July 2018, starting weight was 364 pounds. Current weight is 189 pounds. She has extra skin in her abdomen and on both arms. Denies any pain or skin conditions with arm skin. No pain with extra skin in her abdomen, but she occasionally gets some yeast infections in the folds. None currently. She has been recommended for above surgery. PAST MEDICAL HISTORY Diagnosis Date - Anxiety with depression 04/14/2021 - Hypertension - Kidney stones, calcium oxalate - Obstructive sleep apnea - S/P gastric bypass PAST SURGICAL HISTORY Procedure Laterality Date - SECTION HX 2008, 2010 - COLONOSCOPY - EGD 09/20/2020 - GASTRIC BYPASS HX 07/2018 - HYSTERECTOMY 2013 - KNEE SURGERY HX Right x 2 - last one ~1999 - KNEE SURGERY HX Left high school - NOSE SURGERY HX x3 - in high school - WRIST SURGERY HX Right High school FAMILY HISTORY Problem Relation Age of Onset - Heart Mother heart valve - Hypertension Mother - No Known Problems Father SOCIAL HISTORY: Social History Tobacco Use - Smoking status: Never Smoker - Smokeless tobacco: Never Used Substance Use Topics - Alcohol use: Yes Comment: Occasional glass wine with dinner - Drug use: Never MEDICATIONS: Prior to Admission medications as of 04/14/21 1056 Medication Sig Last Dose Taking polyethylene glycol 3350 (MIRALAX) 17 gram/dose powder Take by mouth once daily. Yes Calcium Citrate 250 mg calcium tab Take 2 tablets by mouth three times daily. 2 tablets by mouth three times daily Yes vitamin D3-vitamin K2, MK4, 1,000-100 unit-mcg tab Take 1 capsule by mouth three times daily. Yes Lactobac no.41/Bifidobact no.7 (PROBIOTIC-10 ORAL) Yes diphenhydrAMINE (BENADRYL) 25 mg capsule Yes cetirizine (ZYRTEC) 10 mg tablet Take 10 mg by mouth. Yes multivitamin (MULTIPLE VITAMINS ORAL) Take by mouth. Yes FLUoxetine (PROZAC) 20 mg capsule Take 1 capsule by mouth once daily. buPROPion (WELLBUTRIN) 100 mg tablet Take 1 tablet by mouth three times daily. melatonin 1 mg tablet Take 1 tablet by mouth as needed for for insomnia. No medication comments found. CURRENT ALLERGIES: ALLERGIES No Known Allergies COVID VACCINATION STATUS: Fully vaccinated REVIEW OF SYSTEMS: PAIN ASSESSMENT: General: No weight loss, malaise or fevers. Neuro: No history of TIA's, stroke, [employer] tumor, impaired sensorium, hemiplegia, paraplegia or quadraplegia. No neurological symptoms or problems. Respiratory: +RANDEE - Resolved with weight loss Negative for Asthma, Current cough, Dyspnea, Tobacco Use, URI < 2 weeks Cardiovascular: +HTN hx - improved with weight loss Negative for Arrhythmia, CAD, Chest Pain, CHF, PVD, Valvular Heart Disease, DVT/PE GI: +Gastric bypass hx Negative for GERD, Heartburn, Nausea, Vomiting, Difficulty swallowing, ETOH > 2 drinks / day, Pancreatitis, IBS : No history of dysuria, frequency or incontinence,, stones or chronic kidney disease Endocrine: No history of diabetes. Has not taken steroids within the past 30 days. No history of endocrinological symptoms or problems. Hematology: No history of bleeding or clotting disorder. Pt is not taking anti-coagulation or platelet medications. No history of hematological symptoms or problems. Oncology: No history of CA metastasis, chemo within 30 days, or radiotherapy within 90 days. Has not lost 10% of body wt in 6 months. No history of oncological symptoms or problems. Psych: +Fluoxetine, bupropion - anxiety and depression Musculoskeletal: Occ knee pain Skin: Negative for lesions, rash and itching. Objective PHYSICAL EXAM: VITALS: BP 118/72 Pulse 62 Temp 97.7 Resp 16 Ht 5' 6 (1.68m) Wt 189 lb (85.7kg) SpO2 100% BMI 30.52 kg/(m2). General: Alert and oriented, No acute distress, Healthy appearance Skin: Normal color, no rash, no lesions. HEENT: EOM, pupils equal, round and reactive. Cardiovascular: Normal S1 AND S2, no rubs, murmurs or gallops. No JVD. Pulse regular. Lungs: Normal breath sounds, no wheezes or crackles., No chest deform (more content not included)... Normal [facility] XR KUB 1 VIEWon 08-04-2020 XR KUB 1 VIEW EXAMINATION: XR KUB 1 VIEW HISTORY: Urolithiasis COMPARISON: XR KUB 07/28/2020 FINDINGS: KIDNEY/URETER - RIGHT: Several large stones projecting over the kidney, largest is 12 mm. KIDNEY/URETER - LEFT: Several small stones projecting over the kidney. PELVIS: No visible ureteral stones. BOWEL: No abnormal dilation or deviation. Bowel sutures within the left upper quadrant. BONES: No acute abnormality. OTHER: Negative. No abnormal gaseous collections. IMPRESSION: 1. Stable bilateral nephrolithiasis. Electronically authenticated by: EVAN STOREY Date: 2020-08-04 11:11 Normal [facility] XR KUB 1 VIEWon 07-28-2020 XR KUB 1 VIEW EXAMINATION: XR KUB 1 VIEW HISTORY: Urolithiasis r COMPARISON: No relevant comparison available. FINDINGS: KIDNEY/URETER - RIGHT: Multiple nephroliths the largest measures 12 mm KIDNEY/URETER - LEFT: Multiple nephroliths the largest measures 5 mm PELVIS: No visible ureteral calcifications. Any visible calcifications favor phleboliths. BOWEL: No abnormal dilation or deviation. BONES: No acute abnormality. Levocurvature OTHER: Left upper and left lower quadrant suture lines. Linear metallic foreign body projects over the right lateral pelvis. No abnormal gaseous collections. IMPRESSION: Extensive bilateral nephrolithiasis Electronically authenticated by: DAVON SCHULTE Date: 2020-07-28 09:00 Normal [facility] CBCon 02-04-2019 Absolute nRBC <0.01 Normal <0.01 [facility] Comment on above: Performed By: #### H BA1C, PTHI, VITD, B1WB ####[address] [phone] Erythrocyte distribution width (RBC) [Ratio] 13.4 % Normal 11.5-15.0 [facility] Comment on above: Performed By: #### H BA1C, PTHI, VITD, B1WB ####[facility] [place], [place] [phone] Hematocrit (Bld) [Volume fraction] 40.1 % Normal 36.0-46.0 [facility] Comment on above: Performed By: #### H BA1C, PTHI, VITD, B1WB ####[facility] [address] [place], [place] [phone] Hemoglobin (Bld) [Mass/Vol] 13.0 g/dL Normal 11.5-15.5 [facility] Comment on above: Performed By: #### H BA1C, PTHI, VITD, B1WB ####[place] [address], [place] [phone] MCH (RBC) [Entitic mass] 31.2 pG Normal 26.0-34.0 [facility] Comment on above: Performed By: #### H BA1C, PTHI, VITD, B1WB ####[place] [address], [place] [phone] MCHC (RBC) [Mass/Vol] 32.4 g/dL Normal 30.5-36.0 [facility] Comment on above: Performed By: #### H BA1C, PTHI, VITD, B1WB ####[place] [address] [place] [phone] MCV (RBC) [Entitic vol] 96.2 fL Normal 80.0-100.0 [facility] Comment on above: Performed By: #### H BA1C, PTHI, VITD, B1WB ####[place] [address], [place] [phone] Platelet mean volume (Bld) [Entitic vol] 11.0 fL Normal 9.0-12.7 [facility] Comment on above: Performed By: #### H BA1C, PTHI, VITD, B1WB ####[place] [address], [place] [phone] Platelets (Bld) [#/Vol] 246 10*3/uL Normal 150-400 [facility] Comment on above: Performed By: #### H BA1C, PTHI, VITD, B1WB ####[place] [address], [place] [phone] RBC (Bld) [#/Vol] 4.17 10*6/uL Normal 3.90-5.20 [facility] Comment on above: Performed By: #### H BA1C, PTHI, VITD, B1WB ####[facility] [address] [place], [place] [phone] WBC (Bld) [#/Vol] 7.89 10*3/uL Normal 3.70-11.00 [facility] Comment on above: Performed By: #### H BA1C, PTHI, VITD, B1WB ####[facility] [address] [place], [place] [phone] CNCNPATEDon 02-04-2019 CNCNPATED Education (BMIREJ) VIVIANE TERESA ([id number]) 1980 F Date Time Provider Department 02/04/19 11:00 AM MESERET AMOR (RD) BMIREJ Reason for Visit: Patient Education [91] Reassessment [784] Progress Notes: Meseret Amor RD 02/04/2019 4:50 PM Signed Nutritional Therapy Post op Parker en Y Gastric Bypass - 6 months Re-Assessment PROGRESS: Nutrition Intervention (date of last encounter 09/08/18): 1. Chew food 20-30 times per bite, making meals last 30 minutes and stop drinking within 30 minutes before a meal, during meals and 30 minutes after meals - - met 2. Vitamin/minerals: Take daily multivitamin with 200 % daily value for all vitamin/minerals plus VIt D3 3,000 IU, Vit B12 500 mcg, Iron 45 mg and calcium citrate 1686-5022 mg/day . It is okay to use combination vitamin/minerals to reduce pill volume. Page 43 of Your Guide to Surgery - OK to use Bariatric Multivitamin: [employer], Celebrate, Bariatric Fusion, Bariatric Advantage - - met 3. Eating protein first at every meal with a goal of 73-91 grams per day - - met 4. 64oz of calorie-free, caffeine-free, no carbonation, no alcohol containing beverages - - met 5. Physical activity-continue Cardio 150-250 minutes/week and strength/resistance training 2x per week for 10-20 minutes/session - - met CHANGES IN TREATMENT: Patient met goal(s): Yes Actions to implement interventions: Diet History: Breakfast - 7 am Cambodian yogurt and protein granola Lunch - 2 pm - P3 - 15 grams protein Snack - baby rivas light cheese 6 grams protein Dinner - 6-830 pm 3-4 ounces pork roast with greens Beverages - water - 96 ounces. Vitamins/Supplements - MVI - 45 (3) capsules; (3) soft chews/day calcium citrate - Celebrate. fitness 5-6 x per week elliptical 35 minutes and strength training (175 - 210 minutes/week cardio) CLINICAL IMPRESSIONS: excellent REVISIONS IN DIAGNOSIS: Diagnosis: has not changed. Allergies: Patient has no known allergies. Medications: Current Outpatient Medications Medication Sig Dispense Refill - diphenhydrAMINE (BENADRYL) 25 mg capsule - budesonide-formotero l (SYMBICORT) 80-4.5 mcg/actuation inhaler Inhale as instructed. - cetirizine (ZYRTEC) 10 mg tablet Take 10 mg by mouth. - montelukast (SINGULAIR) 10 mg tablet Take 10 mg by mouth. - multivitamin (MULTIPLE VITAMINS ORAL) Take by mouth. - PARoxetine (PAXIL) 10 mg tablet Take 10 mg by mouth. - Meloxicam AND Irritant Cntr #2 15 mg kit - amLODIPine (NORVASC) 10 mg tablet Take 10 mg by mouth once daily. No current facility-administere d medications for this visit. (currently taking) Anthropometrics: Height: Last 1 Encounter Ht Readings: Date: Ht: 02/04/2019 164.5 cm (5' 4.76 ) Current weight: Last 1 Encounter Wt Readings: Date: Wt: 11/11/2018 110.7 kg (244 lb) Body mass index is 40.91 kg/m?. Resting Metabolic Rate: 1780 NUTRITION ASSESSMENT: Malnutrition Screening Significant unintentional weight loss? No Eating less than 75% of usual intake for more than 2 weeks? No Potential Signs of Inflammation: no identifiable sources RECOMMENDED MALNUTRITION DIAGNOSIS: NO MALNUTRITION IDENTIFIED Nutritional status: No Malnutrition Identified Educational materials provided: none this visit READINESS TO LEARN Cognitive ability: Alert and oriented Motivation to learn: Eager Family support: High - Very involved in pt care Instruction provided to: Patient Patient learns best by: Individual Instruction Written Instruction - Hand-outs Verbal Instruction Factors affecting learning: None Physical limitations affecting learning: None Likelihood of Adherence: High Patient presents 6 months post op Parker en Y Gastric Bypass. Weight loss of 59 lbs since last session (277 lbs). Overall weight loss 130 lbs since initial assessment (348 lbs)/51.7% loss excess weight (215 lbs). Resting Metabolic Rate: 1667 - current intake under 1000 calories/day. Patient reports hair loss. Started biotin with all other vitamin/minerals. Reports feet fall asleep during exercise. Recent labs (today) are remarkable for elevated Vitamin B12 and elevated PTH. Vitamin D level is pending. Nutrition Diagnosis: Overweight Obesity, related to; food/nutrition - related knowledge deficit, as evidenced by BMI above normative standard for age and gender Inadequate Vitamin intake, Specify Vitamin D/calcium , related to; insufficient absorption, as evidenced by elevated PTH Nutrition Intervention 02/04/2019:Comprehens ernesto Nutrition Education 1. Continue to take all recommended vitamin/minerals. Okay to take (3) Celebrate capsules/day and (30 calcium citrate chews/day (1500 mg total) 2. Protein goal: 73 - 91 grams protein/day (eat 4 meals per day - 20 grams protein each meal) 3. Increase calories to 1200 calories/day (healthy oils). Eat 4 meals per day (300 calories each) 3. Fluid goal: 64oz per day water. (no calories, no caffeine, no carbonation, no alcohol) 4. Exercise goal: continue elliptical for cardio 35 minutes/session 5-6 x per week. continue to strength train for 20-30 minutes/session 3-4 x per week. 5. Practice mindful eating habits-take small portions, eat slowly, chew thoroughly Nutrition Monitoring AND Evaluation: BMI < 35 kg/m2 Criteria: weight check Need for Follow up: 6 months Referred/Supervised by: Kinza/Ghada MCCLAIN Billing Type: Re-assess/15 min 2 units SIGNATURE: Meseret Amor RD PATIENT NAME: Viviane Teresa DATE: February 04, 2019 TIME: 11:07 AM PAGER: [phone] Primary Visit Diagnosis:Class 2 drug-induced obesity with body mass index (BMI) of 36.0 to 36.9 in adult, unspecified whether serious comorbidity present [E66.1, Z68.36] Other Visit Diagnoses:Dietary counseling and surveillance [Z71.3] S/P gastric bypass [Z98.84] During your visit today, we recorded the following information about you: Weight Height 99.3 kg 1.645 m Allergies As of Date: 02/04/2019 (No Known Allergies) Date Reviewed: 02/04/2019 Reviewed by: Meseret (Loki) Jordi - Fully Assessed Prescriptions as of 02/04/2019 Sig: DIPHENHYDRAMINE 25 MG CAPSULE CETIRIZINE 10 MG TABLET Take 10 mg by mouth. MONTELUKAST 10 MG TABLET Take 10 mg by mouth. MULTIPLE VITAMINS ORAL Take by mouth. PAROXETINE 10 MG TABLET Take 10 mg by mouth. MELOXICAM 15 MG TABLET-IRRITA* AMLODIPINE 10 MG TABLET Take 10 mg by mouth once danika* X BUDESONIDE-FORMOTERO L HFA 80 * Inhale as instructed. Encounter Status:Closed by MESERET AMOR on 02/04/19 [facility] Office Visit (BMIREJ) VIVIANE TERESA ([id number]) 1980 F Date Time Provider Department 02/04/19 3:10 PM ADWOA PANDA During your visit today, we recorded the following information about you: Temperature Pulse Respiration Blood pressure 97.7 degrees 58/minute 16/minute 119/67 Weight 99.3 kg Adwoa Panda MD 03/16/2019 1:15 PM Addendum Name: Viviane Teresa Index Surgery Date of Surgery: 08/05/2018 Surgeon: Heath Echols MD Surgical Procedure: LAPAROSCOPIC GASTRIC RESTRICTIVE SURG W/ BYPASS AND PARKER-EN-Y Pre-surgical weight: 139.7 kg (308 lb) Override Index Surgery Information? No Other Bariatric Surgeries None Visit: 6 months Today's Visit: Wt 99.3 kg (219 lb) BMI 36.71 kg/m2 BMI 36.71 kg/(m2) Last Visit: Wt: 110.7 kg (244 lb) BMI: 40.91 kg/(m2) Total weight loss: 40.4 kg (89 lb) Gatzke weight: 67.5 kg (148 lb 13.8 oz) Excess weight: 72.2 kg (159 lb 2.2 oz) % of excess body weight lost: 40.4 kg (89 lb) (55.93% of excess weight loss) COMPLICATIONS SINCE LAST VISIT?: NONE and Other: and notes hair loss; tingling feet with activity DIET INTAKE: tolerates Phase V diet -believes she is getting the recommended amount of protein and fluids -has seen Business Process Consultant recently DAILY SUPPLEMENTS: Calcium: Calcium Citrate w/ vitamin D (1200 - 1500mg) Multivitamin AND Minerals: Celebrate MVI with 45 mg iron Iron Supplement: included in multi-vitamin Vitamin B12: yes 2500 mcg Vitamin D3: no or included in MVI? Other: Actigall 300 mg twice daily Pepcid, biotin, probiotic, omega 3 EXERCISE: elliptical 35 min, 5-6 x per week, plus hiking, walking, kayaking Strength training: Weights 3-4 x per week Are you attending any Support Groups? No attendance Current Outpatient Medications: mometasone-formotero l (DULERA) 100-5 mcg/actuation inhaler Lactobac no.41/Bifidobact no.7 (PROBIOTIC-10 ORAL) PROAIR RESPICLICK 90 mcg/actuation aepb INHALE 2 PUFFS EVERY 4 HOURS NEEDED SHORTNESS OF BREATH or FOR WHEEZING tiotropium bromide (SPIRIVA RESPIMAT) 1.25 mcg/actuation mist diphenhydrAMINE (BENADRYL) 25 mg capsule cetirizine (ZYRTEC) 10 mg tablet Take 10 mg by mouth. montelukast (SINGULAIR) 10 mg tablet Take 10 mg by mouth. multivitamin (MULTIPLE VITAMINS ORAL) Take by mouth. PARoxetine (PAXIL) 10 mg tablet Take 10 mg by mouth. Meloxicam AND Irritant Cntr #2 15 mg kit amLODIPine (NORVASC) 10 mg tablet Take 10 mg by mouth once daily. No current facility-administere d medications for this visit. REVIEW OF SYSTEMS: denies nausea, vomiting, dumping syndrome PHYSICAL EXAM: BP 119/67 Pulse (!) 58 Temp 36.5 ?C (97.7 ?F) (Temporal) Resp 16 Wt 99.3 kg (219 lb) BMI 36.71 kg/m? Gen: NAD, AANDOx3, obese, pleasant Heent: Throat clear, perrl Heart: RRR Lungs: CTAB Abd: Soft, NT, ND, scars look well-healed Ext: No edema noted A/P: 38 y/o lady status post: Laparoscopic Parker-en-Y gastric bypass (120-cm antecolic antegastric Parker limb, and 100-cm biliopancreatic limb), Esophagogastroscopy done on: 08/05/[address] Echols 1)status post bariatric surgery. Indicates an eventual, long-term weight loss goal of: 160s Indicates the following as possible challenges to ongoing healthy lifestyle changes: Gym closing Saturday, but she will find a new one 2)Health issues which have improved/resolved since surgery: -sleep apnea -high blood pressure 3)paresthesias in feet, only with weight-bearing activity -will check additional labs as per orders and consider Neurology consult if symptoms persist/worsen DISPOSITION: Return 6 month to Post-op follow up/ individual office visit EDUCATION: Pt encouraged to continue with positive lifestyle changes and daily/vitamin intake REFERRALS: N/A LABS: Today: will add copper, zinc, B6, B3 in light of her paresthesia symptoms. Consider also neurology referral if symptoms persist/worsen In 6 months: CBC W DIFF, CMP, Vitamin B12, Iron/ TIBC, Lipid panel, TSH, PTH Intact, Folate, 25 Hydroxy, HBA1C and B1 Adwoa Panda MD - March 16, 2019 ADDENDUM: Consult to Neurology placed, since patient still having concerns of paresthesias, and labs non-remarkable. She should also f/u PCP. AG Labs available so far non-remarkable: Component Latest Ref Rng AND Units 02/04/2019 Protein, Total 6.3 - 8.0 g/dL 6.7 Albumin 3.9 - 4.9 g/dL 4.0 Calcium 8.5 - 10.2 mg/dL 9.4 Bilirubin, Total 0.2 - 1.3 mg/dL 0.3 Alkaline Phosphatase 34 - 123 U/L 66 AST 13 - 35 U/L 13 Glucose 74 - 99 mg/dL 92 BUN 7 - 21 mg/dL 12 Creatinine 0.58 - 0.96 mg/dL 0.84 Sodium 136 - 144 mmol/L 140 Potassium 3.7 - 5.1 mmol/L 4.0 Chloride 97 - 105 mmol/L 103 CO2 22 - 30 mmol/L 28 Anion Gap 9 - 18 mmol/L 9 ALT 7 - 38 U/L 11 eGFR- >60 eGFR-All Other Races . >60 WBC 3.70 - 11.00 k/uL 7.89 RBC 3.90 - 5.20 m/uL 4.17 Hemoglobin 11.5 - 15.5 g/dL 13.0 Hematocrit 36.0 - 46.0 % 40.1 MCV 80.0 - 100.0 fL 96.2 MCH 26.0 - 34.0 pG 31.2 MCHC 30.5 - 36.0 g/dL 32.4 RDW-CV 11.5 - 15.0 % 13.4 Platelet Count 150 - 400 k/uL 246 MPV 9.0 - 12.7 fL 11.0 Absolute nRBC <0.01 k/uL <0.01 Cholesterol, Total <200 mg/dL 158 Triglyceride <150 mg/dL 101 HDL Cholesterol >39 mg/dL 50 LDL Cholesterol <100 mg/dL 88 Non HDL Cholesterol <130 mg/dL 108 Fasting Time hrs 12 VLDL Cholesterol <30 mg/dL 20 TC:HDL Ratio <5.10 3.16 LDL:HDL Ratio <2.54 1.76 Iron 41 - 186 ug/dL 70 TIBC 232 - 386 ug/dL 229 (L) Transferrin Saturation 15 - 57 % 31 Hemoglobin A1C 4.3 - 5.6 % 4.7 Estimated Average Glucose mg/dL 88 Folate >4.7 ng/mL >20.0 TSH 0.400 - 5.500 uU/mL 1.280 Vitamin B12 232 - 1,245 pg/mL >2,000 (H) (OTHER) -11/11/2018: OV BMI/Gorty. Copied from note: A/P: 38 y/o lady status post: Laparoscopic Parker-en-Y gastric bypass (120-cm antecolic antegastric Parker limb, and 100-cm biliopancreatic limb), Esophagogastroscopy done on: 08/05/[address] Echols 1)status post bariatric surgery. Indicates an eventual, long-term weight loss goal of: Close to 160# Indicates the following as possible challenges to ongoing healthy lifestyle changes: Finding time to keep exercising-doing well so far 2)Health issues which have improved/resolved since surgery: -RANDEE possibly 3)Asthma symptoms-worsening since surgery -will refer to Pulmonary medicine-patient prefers to be seen at [facility]. ?DISPOSITION: Return 3 month to Post-op follow up/ individual office visit EDUCATION: Pt encouraged to continue with positive lifestyle changes and daily/vitamin intake REFERRALS: N/A LABS: Today: none In 3 months: CBC W DIFF, CMP, Vitamin B12, Iron/ TIBC, Lipid panel, TSH, PTH Intact, Folate, 25 Hydroxy, HBA1C and B1 (OTHER): - Adwoa Panda MD 02/04/2019 3:11 PM Signed Visit: 6 months Today's Visit: Wt 99.3 kg (219 lb) BMI 36.71 kg/m2 BMI 36.71 kg/(m2) Last Visit: Wt: 110.7 kg (244 lb) BMI: 40.91 kg/(m2) Total weight loss: 40.4 kg (89 lb) Gatzke weight: 67.5 kg (148 lb 13.8 oz) Excess weight: 72.2 kg (159 lb 2.2 oz) % of excess body weight lost: 40.4 kg (89 lb) (55.93% of excess weight loss) Adwoa Panda MD 03/16/2019 1:15 PM Signed Addended by: ADWOA PANDA MD on: 03/16/2019 01:15 PM Modules accepted: Orders Referring Provider: SELF [200] Allergies As of Date: 02/04/2019 (No Known Allergies) Date Reviewed: 02/04/2019 Reviewed by: Meseret Amor - Fully Assessed Reason for Visit: Follow Up [171] 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] Other Visit Diagnoses:Paresthesi a [R20.2] S/P gastric bypass [Z98.84] Obesity, Class II, BMI 35-39.9 [E66.9] Order(s):VITAMIN B6/PYRIDOXIN [SQVITB6] Order #: [id number] FUTURE VITAMIN B3/NIACIN, PLASMA [JJI4MLF] Order #: [id number] FUTURE ZINC BLD [SQZINC] Order #: [id number] FUTURE COPPER BLOOD [SQCOPPER] Order #: [id number] FUTURE CONSULT TO NEUROLOGY [9019] Order #: [id number]: 1 Prescriptions as of 02/04/2019 Sig: MOMETASONE-FORMOTERO L HFA 100* PROBIOTIC-10 ORAL PROAIR RESPICLICK 90 MCG/ACTU* INHALE 2 PUFFS EVERY 4 HOURS * TIOTROPIUM BROMIDE 1.25 MCG/A* DIPHENHYDRAMINE 25 MG CAPSULE CETIRIZINE 10 MG TABLET Take 10 mg by mouth. MONTELUKAST 10 MG TABLET Take 10 mg by mouth. MULTIPLE VITAMINS ORAL Take by mouth. PAROXETINE 10 MG TABLET Take 10 mg by mouth. MELOXICAM 15 MG TABLET-IRRITA* AMLODIPINE 10 MG TABLET Take 10 mg by mouth once danika* Problem List As Of Date 02/04/2019 Noted Resolved RANDEE (obstructive sleep apnea) [G47.33] INVALID FOR* Essential hypertension [I10] INVALID FOR* Morbid obesity (HCC) [E66.01] INVALID FOR* Preoperative examination [Z01.818] INVALID FOR* More... Acute postoperative pain [G89.18] INVALID FOR* Obesity, Class III, BMI >= 40 [E66.01] INVALID FOR* S/P gastric bypass [Z98.84] INVALID FOR* Other instructions from your clinician: Visit: 6 months Today's Visit: Wt 99.3 kg (219 lb) BMI 36.71 kg/m2 BMI 36.71 kg/(m2) Last Visit: Wt: 110.7 kg (244 lb) BMI: 40.91 kg/(m2) Total weight loss: 40.4 kg (89 lb) Gatzke weight: 67.5 kg (148 lb 13.8 oz) Excess weight: 72.2 kg (159 lb 2.2 oz) % of excess body weight lost: 40.4 kg (89 lb) (55.93% of excess weight loss) Medications Discontinued During This Encounter budesonide-formotero l (SYMBICORT) 80* 02/04/2019 Class: Historical Med Route: INHALATION Sig: Inhale as instructed. Disc: Reason for discontinue is not on file. Disposition: Return in about 6 months (around 08/07/2019) for 1 year postop with the Bariatric Surgeon/Dr. Echols and same day with Business Process Consultant. Follow-up and Disposition History Recorded Encounter Status:Closed by ADWOA PANDA MD on 02/12/19 [facility] CNOV Office Visit (GENBMI) VIVIANE TERESA ([id number]) 1980 F Date Time Provider Department 02/04/19 12:00 PM SHAHLA RODRIGUEZ (COORD) GENBMI During your visit today, we recorded the following information about you: Pulse Blood pressure Weight Height 78/minute 117/66 99.3 kg 1.645 m Shahla Rodriguez Coord 02/10/2019 11:17 AM Signed 6 Month Post OP Visit STUDY TITLE: Mechanisms that Predict Weight Trajectory after Bariatric Surgery: [employer] IRB NO.: [id number] SPRAY APPLICATOR: Charlene Wooten, PhD COORDINATOR/Research Nurse/Chalk Extruding Machine Operator: Shahla Rodriguez * Pager: [phone] Patient here for 6 month follow up visit per protocol. The following procedures will be performed at 6 Month Post OP visit: Anthropometric Measures and Vitals Height: Done Weight: Done BP: Done Pulse: Done Body mass index is 36.7 kg/m?. ASA24 Reminder: Issued Structured Clinical Interview for DSM-5 (SCID-5): Scheduled for Monday, February 11, 2019 from 5:30 pm to 7:30 pm w/Kati (177) [facility] Toolkit: Done Stool Specimen Collected: Done (patient brought specimen to appointment , she documented it as being collected on 02/03/2019 at 6:35 am ). I delivered it to freezer in the [facility] pending shipping. Questionnaires completed per protocol. [facility] Assessment completed, username and password given for login to [employer] to complete dietary journal starting 02/04/2019 to 02/06/2019. Actigraph issued # [id number], to be worn 31/12 (except when in water) for 7 days starting 02/04/2019 through 02/11/2019 and returned in UPS pre-paid stamped envelope tracking number [id number] provided. Participant is to contact Tomb Maker Helper when 12 month follow up appointments have been determined. [employer] Gift Card: [id number] Shahla Rodriguez MBA Research Coordinator Referring Provider: SELF [200] Allergies As of Date: 02/04/2019 (No Known Allergies) Date Reviewed: 02/04/2019 Reviewed by: Meseret (Loki) Jordi - Fully Assessed Primary Visit Diagnosis:Research study patient [Z00.6] Prescriptions as of 02/04/2019 Sig: DIPHENHYDRAMINE 25 MG CAPSULE CETIRIZINE 10 MG TABLET Take 10 mg by mouth. MONTELUKAST 10 MG TABLET Take 10 mg by mouth. MULTIPLE VITAMINS ORAL Take by mouth. PAROXETINE 10 MG TABLET Take 10 mg by mouth. MELOXICAM 15 MG TABLET-IRRITA* AMLODIPINE 10 MG TABLET Take 10 mg by mouth once danika* X BUDESONIDE-FORMOTERO L HFA 80 * Inhale as instructed. Problem List As Of Date 02/04/2019 Noted Resolved RANDEE (obstructive sleep apnea) [G47.33] INVALID FOR* Essential hypertension [I10] INVALID FOR* Morbid obesity (HCC) [E66.01] INVALID FOR* Preoperative examination [Z01.818] INVALID FOR* More... Acute postoperative pain [G89.18] INVALID FOR* Obesity, Class III, BMI >= 40 [E66.01] INVALID FOR* S/P gastric bypass [Z98.84] INVALID FOR* Encounter Status:Closed by SHAHLA HAIRSTON on 02/10/19 Normal [facility] Comp Metabolic Panelon 02-04 Albumin [Mass/Vol] 4.0 g/dL Normal 3.9-4.9 [facility] Comment on above: Performed By: #### H BA1C, PTHI, VITD, B1WB ####[facility], [place] [phone] ALP [Catalytic activity/Vol] 66 U/L Normal 34-123 [facility] Comment on above: Performed By: #### H BA1C, PTHI, VITD, B1WB ####[place] [address] [place] [phone] ALT [Catalytic activity/Vol] 11 U/L Normal 7-38 [facility] Comment on above: Performed By: #### H BA1C, PTHI, VITD, B1WB ####[place] [address] [place] [phone] Anion gap [Moles/Vol] 9 mmol/L Normal 9-18 [facility] Comment on above: Performed By: #### H BA1C, PTHI, VITD, B1WB ####[place] [address] [phone] AST [Catalytic activity/Vol] 13 U/L Normal 13-35 [facility] Comment on above: Performed By: #### H BA1C, PTHI, VITD, B1WB ####[place] [address] [place] [phone] Bilirubin [Mass/Vol] 0.3 mg/dL Normal 0.2-1.3 [facility] Comment on above: Performed By: #### H BA1C, PTHI, VITD, B1WB ####[place] [address] [place] [phone] Calcium [Mass/Vol] 9.4 mg/dL Normal 8.5-10.2 [facility] Comment on above: Performed By: #### H BA1C, PTHI, VITD, B1WB ####[place] [address] [place] [phone] Chloride [Moles/Vol] 103 mmol/L Normal 97-105 [facility] Comment on above: Performed By: #### H BA1C, PTHI, VITD, B1WB ####[place] [address] [place] [phone] CO2 [Moles/Vol] 28 mmol/L Normal 22-30 [facility] Comment on above: Performed By: #### H BA1C, PTHI, VITD, B1WB ####[place] [address] [phone] Creatinine [Mass/Vol] 0.84 mg/dL Normal 0.58-0.96 [facility] Comment on above: Performed By: #### H BA1C, PTHI, VITD, B1WB ####[place] [address] [place] [phone] eGFR- Amer. >60 Normal [facility] Comment on above: Performed By: #### H BA1C, PTHI, VITD, B1WB ####[place] [address] [phone] GFR/1.73 sq M predicted among non-blacks MDRD (S/P/Bld) [Vol rate/Area] mL/min/{1.73_m2} Normal [facility] Comment on above: Result Comment: eGFR (Estimated GFR) Units of measure: mL/min/1.73 meters squared eGFR is derived from the reexpressed MDRD Study equation using the following parameters: serum creatinine, age, gender and race. The creatinine assay has been calibrated to be traceable to IDMS. An eGFR <60 mL/min/1.73m2 for >3 months is consistent with chronic kidney disease. Refer to KDOQI guidelines for clinical interpretation. In patients with unstable renal function, e.g. those with acute kidney injury, the eGFR may not accurately reflect actual GFR. Performed By: #### H BA1C, PTHI, VITD, B1WB ####[facility] [place], [place] [phone] Glucose [Mass/Vol] 92 mg/dL Normal 74-99 [facility] Comment on above: Result Comment: The [place] [employer] (ADA) provides guidance for cutoff values for fasting glucose and random glucose. The ADA defines fasting as no caloric intake for at least 8 hours. Fasting plasma glucose results between 100 to 125 mg/dL indicate increased risk for diabetes (prediabetes). Fasting plasma glucose results greater than or equal to 126 mg/dL meet the criteria for diagnosis of diabetes. In the absence of unequivocal hyperglycemia, results should be confirmed by repeat testing. In a patient with classic symptoms of hyperglycemia or hyperglycemic crisis, random plasma glucose results greater than or equal to 200 mg/dL meet the criteria for diagnosis of diabetes. Reference: Standards of Medical Care in Diabetes 2016, [place] Diabetes Association. Diabetes Care. 2016.39(Suppl 1). Performed By: #### H BA1C, PTHI, VITD, B1WB ####[address] [phone] Potassium [Moles/Vol] 4.0 mmol/L Normal 3.7-5.1 [facility] Comment on above: Performed By: #### H BA1C, PTHI, VITD, B1WB ####[address] [place], [place] [phone] Protein [Mass/Vol] 6.7 g/dL Normal 6.3-8.0 [facility] Comment on above: Performed By: #### H BA1C, PTHI, VITD, B1WB ####[address] [place], [place] [phone] Sodium [Moles/Vol] 140 mmol/L Normal 136-144 [facility] Comment on above: Performed By: #### H BA1C, PTHI, VITD, B1WB ####[address] [place], [place] [phone] Urea nitrogen [Mass/Vol] 12 mg/dL Normal 7-21 [facility] Comment on above: Performed By: #### H BA1C, PTHI, VITD, B1WB ####[address] [place], [place] [phone] Folate, Serumon 02-04-2019 Folate [Mass/Vol] ng/mL Normal >4.7 [facility] Comment on above: Result Comment: A re sult of > 20 ng/mL is not necessarily indicative of a pathologic or treatable condition: it reflects a limitation of the test methodology. Assay reference range: 4.8 to 24.2 ng/mL. Suitable for detection of folate deficiency. Reference: Folate III (Folate III) [package insert V 2.0 [place]]. [place], [place], [place]: April 2015. Performed By: #### H BA1C, PTHI, VITD, B1WB ####[address] [place], [place] [phone] Hemoglobin A1con 02-04-2019 HbA1c (Bld) [Mass fraction] 4.7 % Normal 4.3-5.6 [facility] Comment on above: Result Comment: Amer ican Diabetes Association guidelines indicate that patients with HgbA1c in the range 5.7-6.4% are at increased risk for development of diabetes, and intervention by lifestyle modification may be beneficial. HgbA1c greater or equal to 6.5% is considered diagnostic of diabetes. Performed By: #### H BA1C, PTHI, VITD, B1WB ####[address] [place], [place] [phone] HbA1c (Bld) [Mass fraction] 88 mg/dL Normal [facility] Comment on above: Result Comment: eAG: (Estimated average glucose) is a calculated value from HgbA1c and is sales representative publications of the average blood glucose level in the last 2-3 month period. Performed By: #### H BA1C, PTHI, VITD, B1WB ####[address] [place], [place] [phone] Iron and TIBCon 02-04-2019 Iron [Mass/Vol] 70 ug/dL Normal 41-186 [facility] Comment on above: Performed By: #### H BA1C, PTHI, VITD, B1WB ####[facility], [place] [phone] TIBC 229 ug/dL Low 232-386 [facility] Comment on above: Performed By: #### H BA1C, PTHI, VITD, B1WB ####[place] [address], [place] [phone] Transferrin Saturatn 31 % Normal 15-57 [facility] Comment on above: Performed By: #### H BA1C, PTHI, VITD, B1WB ####[place] [address] [address], [place] [phone] Lipid Panel, [place] 019 Cholesterol [Mass/Vol] 158 mg/dL Normal <200 [facility] Comment on above: Performed By: #### H BA1C, PTHI, VITD, B1WB ####[place] [address], [place] [phone] Cholesterol in HDL [Mass/Vol] 50 mg/dL Normal >39 [facility] Comment on above: Performed By: #### H BA1C, PTHI, VITD, B1WB ####[facility], [place] [phone] Cholesterol in LDL [Mass/Vol] 88 mg/dL Normal <100 [facility] Comment on above: Result Comment: <100 mg/dL, Optimal 100-129 mg/dL, Near optimal/above optimal 130-159 mg/dL, Borderline high 160-189 mg/dL, High >189 mg/dL, Very high Secondary prevention optimal LDL Cholesterol levels are recommended to be < 70 mg/dL Performed By: #### H BA1C, PTHI, VITD, B1WB ####[place] [phone] Fasting Time 12 hrs Normal [facility] Comment on above: Performed By: #### H BA1C, PTHI, VITD, B1WB ####[place] [phone] LDL:HDL Ratio 1.76 Normal <2.54 [facility] Comment on above: Result Comment: Amber cohen: 1. National Cholesterol Education Program ATP III Guideline At-A-Glance Quick Desk Reference: National Heart, Lung, and Blood [place]. National Institutes of Health. 2001: NIH Publication No. 01-3305. 2. An International Atherosclerosis Society position paper: global recommendations for the management of dyslipidemia: executive summary, Atherosclerosis. 2014: 232(2):410-413. Performed By: #### H BA1C, PTHI, VITD, B1WB ####[place] [phone] Non HDL Cholesterol 108 mg/dL Normal <130 [facility] Comment on above: Result Comment: <130 mg/dL, Optimal 130-159 mg/dL, Near optimal/above optimal 160-189 mg/dL, Borderline high 190-219 mg/dL, High >219 mg/dL, Very high Secondary prevention optimal non HDL Cholesterol levels are recommended to be < 100 mg/dL Performed By: #### H BA1C, PTHI, VITD, B1WB ####[place] [phone] TC:HDL Ratio 3.16 Normal <5.10 [facility] Comment on above: Performed By: #### H BA1C, PTHI, VITD, B1WB ####[place] [phone] Triglyceride [Mass/Vol] 101 mg/dL Normal <150 [facility] Comment on above: Performed By: #### H BA1C, PTHI, VITD, B1WB ####[place] [phone] VLDL Cholesterol 20 mg/dL Normal <30 [facility] Comment on above: Performed By: #### H BA1C, PTHI, VITD, B1WB ####[facility] [address] [place], [place] [phone] PROGRESSon 02-04-2019 PROGRESS HNO ID: [id number] Author: Shahla Mann Service: ? Author Type: ? Type: Progress Notes Filed: 02/10/2019 11:17 AM Note Text: 6 Month Post OP Visit STUDY TITLE: Mechanisms that Predict Weight Trajectory after Bariatric Surgery: The Interactive Roles of Behavior and Biology IRB NO.: [id number] SPRAY APPLICATOR: Charlene Wooten, PhD COORDINATOR/Research Nurse/Chalk Extruding Machine Operator: Shahla Rodriguez * Pager: [phone] Patient here for 6 month follow up visit per protocol. The following procedures will be performed at 6 Month Post OP visit: Anthropometric Measures and Vitals Height: Done Weight: Done BP: Done Pulse: Done Body mass index is 36.7 kg/m?. [facility] Reminder: Issued Structured Clinical Interview for DSM-5 (SCID-5): Scheduled for Monday, February 11, 2019 from 5:30 pm to 7:30 pm w/Kati (177) [facility] Toolkit: Done Stool Specimen Collected: Done (patient brought specimen to appointment , she documented it as being collected on 02/03/2019 at 6:35 am ). I delivered it to freezer in the [facility] pending shipping. Questionnaires completed per protocol. [facility] Assessment completed, username and password given for login to [facility] to complete dietary journal starting 02/04/2019 to 02/06/2019. Actigraph issued # [id number], to be worn / (except when in water) for 7 days starting 02/04/2019 through 02/11/2019 and returned in UPS pre-paid stamped envelope tracking number [id number] provided. Participant is to contact Tomb Maker Helper when 12 month follow up appointments have been determined. [employer] Gift Card: [id number] Shahla Rodriguez MBA Research Coordinator [facility] PROGRESS HNO ID: [id number] Author: Adwoa Panda Service: ? Author Type: Physician Type: Progress Notes Filed: 03/16/2019 1:15 PM Note Text: Name: Viviane Teresa Index Surgery Date of Surgery: 08/05/2018 Surgeon: Heath Echols MD Surgical Procedure: LAPAROSCOPIC GASTRIC RESTRICTIVE SURG W/ BYPASS AND PARKER-EN-Y Pre-surgical weight: 139.7 kg (308 lb) Override Index Surgery Information? No Other Bariatric Surgeries None Visit: 6 months Today's Visit: Wt 99.3 kg (219 lb) BMI 36.71 kg/m2 BMI 36.71 kg/(m2) Last Visit: Wt: 110.7 kg (244 lb) BMI: 40.91 kg/(m2) Total weight loss: 40.4 kg (89 lb) Gatzke weight: 67.5 kg (148 lb 13.8 oz) Excess weight: 72.2 kg (159 lb 2.2 oz) % of excess body weight lost: 40.4 kg (89 lb) (55.93% of excess weight loss) COMPLICATIONS SINCE LAST VISIT?: NONE and Other: and notes hair loss; tingling feet with activity DIET INTAKE: tolerates Phase V diet -believes she is getting the recommended amount of protein and fluids -has seen Business Process Consultant recently DAILY SUPPLEMENTS: Calcium: Calcium Citrate w/ vitamin D (1200 - 1500mg) Multivitamin AND Minerals: Celebrate MVI with 45 mg iron Iron Supplement: included in multi-vitamin Vitamin B12: yes 2500 mcg Vitamin D3: no or included in MVI? Other: Actigall 300 mg twice daily Pepcid, biotin, probiotic, omega 3 EXERCISE: elliptical 35 min, 5-6 x per week, plus hiking, walking, kayaking Strength training: Weights 3-4 x per week Are you attending any Support Groups? No attendance Current Outpatient Medications: mometasone-formotero l (DULERA) 100-5 mcg/actuation inhaler Lactobac no.41/Bifidobact no.7 (PROBIOTIC-10 ORAL) PROAIR RESPICLICK 90 mcg/actuation aepb INHALE 2 PUFFS EVERY 4 HOURS NEEDED SHORTNESS OF BREATH or FOR WHEEZING tiotropium bromide (SPIRIVA RESPIMAT) 1.25 mcg/actuation mist diphenhydrAMINE (BENADRYL) 25 mg capsule cetirizine (ZYRTEC) 10 mg tablet Take 10 mg by mouth. montelukast (SINGULAIR) 10 mg tablet Take 10 mg by mouth. multivitamin (MULTIPLE VITAMINS ORAL) Take by mouth. PARoxetine (PAXIL) 10 mg tablet Take 10 mg by mouth. Meloxicam AND Irritant Cntr #2 15 mg kit amLODIPine (NORVASC) 10 mg tablet Take 10 mg by mouth once daily. No current facility-administere d medications for this visit. REVIEW OF SYSTEMS: denies nausea, vomiting, dumping syndrome PHYSICAL EXAM: BP 119/67 Pulse (!) 58 Temp 36.5 ?C (97.7 ?F) (Temporal) Resp 16 Wt 99.3 kg (219 lb) BMI 36.71 kg/m? Gen: NAD, AANDOx3, obese, pleasant Heent: Throat clear, perrl Heart: RRR Lungs: CTAB Abd: Soft, NT, ND, scars look well-healed Ext: No edema noted A/P: 38 y/o lady status post: Laparoscopic Parker-en-Y gastric bypass (120-cm antecolic antegastric Parker limb, and 100-cm biliopancreatic limb), Esophagogastroscopy done on: 08/05/[address] Echols 1)status post bariatric surgery. Indicates an eventual, long-term weight loss goal of: 160s Indicates the following as possible challenges to ongoing healthy lifestyle changes: Gym closing Saturday, but she will find a new one 2)Health issues which have improved/resolved since surgery: -sleep apnea -high blood pressure 3)paresthesias in feet, only with weight-bearing activity -will check additional labs as per orders and consider Neurology consult if symptoms persist/worsen DISPOSITION: Return 6 month to Post-op follow up/ individual office visit EDUCATION: Pt encouraged to continue with positive lifestyle changes and daily/vitamin intake REFERRALS: N/A LABS: Today: will add copper, zinc, B6, B3 in light of her paresthesia symptoms. Consider also neurology referral if symptoms persist/worsen In 6 months: CBC W DIFF, CMP, Vitamin B12, Iron/ TIBC, Lipid panel, TSH, PTH Intact, Folate, 25 Hydroxy, HBA1C and B1 Adwoa Panda MD - March 16, 2019 ADDENDUM: Consult to Neurology placed, since patient still having concerns of paresthesias, and labs non-remarkable. She should also f/u PCP. AG Labs available so far non-remarkable: Component Latest Ref Rng AND Units 02/04/2019 Protein, Total 6.3 - 8.0 g/dL 6.7 Albumin 3.9 - 4.9 g/dL 4.0 Calcium 8.5 - 10.2 mg/dL 9.4 Bilirubin, Total 0.2 - 1.3 mg/dL 0.3 Alkaline Phosphatase 34 - 123 U/L 66 AST 13 - 35 U/L 13 Glucose 74 - 99 mg/dL 92 BUN 7 - 21 mg/dL 12 Creatinine 0.58 - 0.96 mg/dL 0.84 Sodium 136 - 144 mmol/L 140 Potassium 3.7 - 5.1 mmol/L 4.0 Chloride 97 - 105 mmol/L 103 CO2 22 - 30 mmol/L 28 Anion Gap 9 - 18 mmol/L 9 ALT 7 - 38 U/L 11 eGFR- >60 eGFR-All Other Races . >60 WBC 3.70 - 11.00 k/uL 7.89 RBC 3.90 - 5.20 m/uL 4.17 Hemoglobin 11.5 - 15.5 g/dL 13.0 Hematocrit 36.0 - 46.0 % 40.1 MCV 80.0 - 100.0 fL 96.2 MCH 26.0 - 34.0 pG 31.2 MCHC 30.5 - 36.0 g/dL 32.4 RDW-CV 11.5 - 15.0 % 13.4 Platelet Count 150 - 400 k/uL 246 MPV 9.0 - 12.7 fL 11.0 Absolute nRBC <0.01 k/uL <0.01 Cholesterol, Total <200 mg/dL 158 Triglyceride <150 mg/dL 101 HDL Cholesterol >39 mg/dL 50 LDL Cholesterol <100 mg/dL 88 Non HDL Cholesterol <130 mg/dL 108 Fasting Time hrs 12 VLDL Cholesterol <30 mg/dL 20 TC:HDL Ratio <5.10 3.16 LDL:HDL Ratio <2.54 1.76 Iron 41 - 186 ug/dL 70 TIBC 232 - 386 ug/dL 229 (L) Transferrin Saturation 15 - 57 % 31 Hemoglobin A1C 4.3 - 5.6 % 4.7 Estimated Average Glucose mg/dL 88 Folate >4.7 ng/mL >20.0 TSH 0.400 - 5.500 uU/mL 1.280 Vitamin B12 232 - 1,245 pg/mL >2,000 (H) (OTHER) -11/11/2018: OV BMI/Gorty. Copied from note: A/P: 38 y/o lady status post: Laparoscopic Parker-en-Y gastric bypass (120-cm antecolic antegastric Parker limb, and 100-cm biliopancreatic limb), Esophagogastroscopy done on: 08/05/[address] Echols 1)status post bariatric surgery. Indicates an eventual, long-term weight loss goal of: Close to 160# Indicates the following as possible challenges to ongoing healthy lifestyle changes: Finding time to keep exercising-doing well so far 2)Health issues which have improved/resolved since surgery: -RANDEE possibly 3)Asthma symptoms-worsening since surgery -will refer to Pulmonary medicine-patient prefers to be seen at [facility]. ?DISPOSITION: Return 3 month to Post-op follow up/ individual office visit EDUCATION: Pt encouraged to continue with positive lifestyle changes and daily/vitamin intake REFERRALS: N/A LABS: Today: none In 3 months: CBC W DIFF, CMP, Vitamin B12, Iron/ TIBC, Lipid panel, TSH, PTH Intact, Folate, 25 Hydroxy, HBA1C and B1 (OTHER): - Normal [facility] PROGRESS HNO ID: [id number] Author: Meseret Amor Service: ? Author Type: Registered Dietitian Type: Progress Notes Filed: 02/04/2019 4:50 PM Note Text: Nutritional Therapy Post op Parker en Y Gastric Bypass - 6 months Re-Assessment PROGRESS: Nutrition Intervention (date of last encounter 09/08/18): 1. Chew food 20-30 times per bite, making meals last 30 minutes and stop drinking within 30 minutes before a meal, during meals and 30 minutes after meals - - met 2. Vitamin/minerals: Take daily multivitamin with 200 % daily value for all vitamin/minerals plus VIt D3 3,000 IU, Vit B12 500 mcg, Iron 45 mg and calcium citrate 7153-9731 mg/day . It is okay to use combination vitamin/minerals to reduce pill volume. Page 43 of Your Guide to Surgery - OK to use Bariatric Multivitamin: [employer], Celebrate, Bariatric Fusion, Bariatric Advantage - - met 3. Eating protein first at every meal with a goal of 73-91 grams per day - - met 4. 64oz of calorie-free, caffeine-free, no carbonation, no alcohol containing beverages - - met 5. Physical activity-continue Cardio 150-250 minutes/week and strength/resistance training 2x per week for 10-20 minutes/session - - met CHANGES IN TREATMENT: Patient met goal(s): Yes Actions to implement interventions: Diet History: Breakfast - 7 am Cambodian yogurt and protein granola Lunch - 2 pm - P3 - 15 grams protein Snack - baby rivas light cheese 6 grams protein Dinner - 6-830 pm 3-4 ounces pork roast with greens Beverages - water - 96 ounces. Vitamins/Supplements - MVI - 45 (3) capsules; (3) soft chews/day calcium citrate - Celebrate. fitness 5-6 x per week elliptical 35 minutes and strength training (175 - 210 minutes/week cardio) CLINICAL IMPRESSIONS: excellent REVISIONS IN DIAGNOSIS: Diagnosis: has not changed. Allergies: Patient has no known allergies. Medications: Current Outpatient Medications Medication Sig Dispense Refill - diphenhydrAMINE (BENADRYL) 25 mg capsule - budesonide-formotero l (SYMBICORT) 80-4.5 mcg/actuation inhaler Inhale as instructed. - cetirizine (ZYRTEC) 10 mg tablet Take 10 mg by mouth. - montelukast (SINGULAIR) 10 mg tablet Take 10 mg by mouth. - multivitamin (MULTIPLE VITAMINS ORAL) Take by mouth. - PARoxetine (PAXIL) 10 mg tablet Take 10 mg by mouth. - Meloxicam AND Irritant Cntr #2 15 mg kit - amLODIPine (NORVASC) 10 mg tablet Take 10 mg by mouth once daily. No current facility-administere d medications for this visit. (currently taking) Anthropometrics: Height: Last 1 Encounter Ht Readings: Date: Ht: 02/04/2019 164.5 cm (5' 4.76 ) Current weight: Last 1 Encounter Wt Readings: Date: Wt: 11/11/2018 110.7 kg (244 lb) Body mass index is 40.91 kg/m?. Resting Metabolic Rate: 1780 NUTRITION ASSESSMENT: Malnutrition Screening Significant unintentional weight loss? No Eating less than 75% of usual intake for more than 2 weeks? No Potential Signs of Inflammation: no identifiable sources RECOMMENDED MALNUTRITION DIAGNOSIS: NO MALNUTRITION IDENTIFIED Nutritional status: No Malnutrition Identified Educational materials provided: none this visit READINESS TO LEARN Cognitive ability: Alert and oriented Motivation to learn: Eager Family support: High - Very involved in pt care Instruction provided to: Patient Patient learns best by: Individual Instruction Written Instruction - Hand-outs Verbal Instruction Factors affecting learning: None Physical limitations affecting learning: None Likelihood of Adherence: High Patient presents 6 months post op Parker en Y Gastric Bypass. Weight loss of 59 lbs since last session (277 lbs). Overall weight loss 130 lbs since initial assessment (348 lbs)/51.7% loss excess weight (215 lbs). Resting Metabolic Rate: 1667 - current intake under 1000 calories/day. Patient reports hair loss. Started biotin with all other vitamin/minerals. Reports feet fall asleep during exercise. Recent labs (today) are remarkable for elevated Vitamin B12 and elevated PTH. Vitamin D level is pending. Nutrition Diagnosis: Overweight Obesity, related to; food/nutrition - related knowledge deficit, as evidenced by BMI above normative standard for age and gender Inadequate Vitamin intake, Specify Vitamin D/calcium , related to; insufficient absorption, as evidenced by elevated PTH Nutrition Intervention 02/04/2019:Comprehens ernesto Nutrition Education 1. Continue to take all recommended vitamin/minerals. Okay to take (3) Celebrate capsules/day and (30 calcium citrate chews/day (1500 mg total) 2. Protein goal: 73 - 91 grams protein/day (eat 4 meals per day - 20 grams protein each meal) 3. Increase calories to 1200 calories/day (healthy oils). Eat 4 meals per day (300 calories each) 3. Fluid goal: 64oz per day water. (no calories, no caffeine, no carbonation, no alcohol) 4. Exercise goal: continue elliptical for cardio 35 minutes/session 5-6 x per week. continue to strength train for 20-30 minutes/session 3-4 x per week. 5. Practice mindful eating habits-take small portions, eat slowly, chew thoroughly Nutrition Monitoring AND Evaluation: BMI < 35 kg/m2 Criteria: weight check Need for Follow up: 6 months Referred/Supervised by: Kinza/Ghada MCCLAIN Billing Type: Re-assess/15 min 2 units SIGNATURE: Meseret Amor RD PATIENT NAME: Viviane Teresa DATE: February 04, 2019 TIME: 11:07 AM PAGER: [phone] Normal [facility] PTH, [place] 02-04-2019 PTH, Intact 71 pg/mL High 15-65 [facility] Comment on above: Performed By: #### H BA1C, PTHI, VITD, B1WB ####[facility] [address] [place], [place] [phone] TSHon 02-04-2019 TSH Qn 1.280 uU/mL Normal 0.400-5.500 [facility] Comment on above: Result Comment: If t he patient is , TSH reference range varies by gestational period: First Trimester 0.100-2.500 uU/mL Second Trimester 0.200-3.000 uU/mL Third Trimester 0.300-3.000 uU/mL References: 1. De Marissa L, Gage M, Guero EK, et al. Management of Thyroid Dysfunction during and : An Endocrine Society Clinical Practice Guideline. J Clin Endocrinol Metab, 2012:97:5292-5000. 2. Venancio RICO. Overview of thyroid disease in . UpToDate. 2016. Accessed on November 25, 2015. Performed By: #### H BA1C, PTHI, VITD, B1WB ####[facility] [address] [place], [place] [phone] Vitamin B1, Whole Blon 02-04 Vitamin B1 (TDP), WB 180.4 nmol/L Normal 84.0-213.0 [facility] Comment on above: Result Comment: This assay measures the concentration of thiamine diphosphate (TDP), the primary active form of vitamin B1. Approximately 90 percent of vitamin B1 present in whole blood is TDP. Thiamine and thiamine monophosphate, which comprise the remaining 10 percent, are not measured. This test was developed and its performance characteristics determined by [facility] [place] ([facility]). It has not been cleared or approved by the FDA. [facility] is regulated under CLIA as qualified to perform high complexity testing. This test is used for clinical purposes. It should not be regarded as investigational or for research. Performed By: #### H BA1C, PTHI, VITD, B1WB ####[facility] [place], [place] [phone] Vitamin B12on 02-04-2019 Cobalamin (Vitamin B12) [Mass/Vol] pg/mL High 232-1245 [facility] Comment on above: Performed By: #### H BA1C, PTHI, VITD, B1WB ####[place] [address] [place], [place] [phone] Vitamin D 25 Hydroxyon 02-04 Vitamin D 25 Hydroxy 51.7 ng/mL Normal 31.0-80.0 [facility] Comment on above: Result Comment: Clas sification of 25 [place] Vitamin D status: Insufficiency/Moderate Deficiency: < or = 30 ng/mL Sufficiency/Optimal Levels: 31 to 80 ng/mL Toxicity: > 100 ng/mL Test performed by chemiluminescent immunoassay. Performed By: #### H BA1C, PTHI, VITD, B1WB ####[facility] [place], [place] [phone] CNOVon 11-18-2018 CNOV Office Visit ([facility]) VIVIANE TERESA ([id number]) 1980 F Date Time Provider Department 11/18/18 8:00 AM LIDIA LEMUS (SAMANTHA) [facility] During your visit today, we recorded the following information about you: Pulse Respiration Blood pressure 70/minute 18/minute 130/80 Lidia Lemus APRN.SAMANTHA 11/18/2018 8:32 AM Signed [facility] Follow up/ Established patient visit Date of last visit : 05/13/2018 IMPRESSION: Randee (obstructive sleep apnea) (primary encounter diagnosis) ? 37 y/o female bariatric surgery candidate with PMH HTN and morbid obesity. - Severe RANDEE on split night PSG performed at outside facility (results in scanned documents). AHI 123. O2 gonzalo 61%. - Recommendation is CPAP 14 cmH2O which was her current pressure. - Restarted PAP therapy at the end of February 2018 after the ramp was turned off (felt she was not getting enough air). - Recommended using PAP therapy nightly to further improve her daytime sleepiness. - No drowsy driving. - DME is [employer] [employer] however she purchases her supplies online due to cost. - Plans to have bariatric wt loss surgery in June. Discussed reassessing RANDEE once she loses 100 lbs. ? - F/U in 7 months. ? Lidia Lemus APRN.SAMANTHA Interval history : Here for follow up for RANDEE f/u. Bariatric surgery 08/05/18. Lost 123 lbs since starting her wt loss journey. SLEEP APNEA Sleep apnea type : RANDEE, Most Recent Apnea-Hypopnea Index (AHI): 123 Treatment : PAP therapy DME: [facility] PAP History: She has not used her CPAP cmH2O machine since 3 weeks after her surgery after developing pneumonia. She continues to have a cough. She has an appointment schedule with pulmonary in 2 weeks to discuss. SLEEP FUNCTIONAL OUTCOME MEASURES See end of note for questionnaire answers PMH, PSH, SH: Reviewed SLEEP RELATED ROS Review of Systems ALLERGIES No Known Allergies CURRENT MEDICATIONS: famotidine (PEPCID) 20 mg tablet Take 1 tablet by mouth twice daily. ursodiol (CHELA 250) 250 mg tablet Take 1 tablet by mouth three times daily. diphenhydrAMINE (BENADRYL) 25 mg capsule budesonide-formotero l (SYMBICORT) 80-4.5 mcg/actuation inhaler Inhale as instructed. cetirizine (ZYRTEC) 10 mg tablet Take 10 mg by mouth. montelukast (SINGULAIR) 10 mg tablet Take 10 mg by mouth. multivitamin (MULTIPLE VITAMINS ORAL) Take by mouth. PARoxetine (PAXIL) 10 mg tablet Take 10 mg by mouth. Meloxicam AND Irritant Cntr #2 15 mg kit amLODIPine (NORVASC) 10 mg tablet Take 10 mg by mouth once daily. PHYSICAL EXAMINATION: Vital Signs: BP 130/80 Pulse 70 Resp 18 PHYSICAL EXAM: General appearance: NAD Mental status: awake and alert Neuro: normal gait, speech fluent IMPRESSION: Randee (obstructive sleep apnea) (primary encounter diagnosis) S/p gastric bypass Very pleasant 38 y/o female post gastric bypass with 123 wt loss to date presents for RANDEE f/u. - Has not used CPAP since late August due to cough from pneumonia. - Will retest for RANDEE post wt loss. PLAN: - PSG. Pt plans to do near home at outside facility. - Call pt with results. Lidia Lemus APRN.GRE[employer] REFINING SUPERVISOR Referring Provider: ADWOA PANDA [[id number]] Allergies As of Date: 11/18/2018 (No Known Allergies) Date Reviewed: 11/18/2018 Reviewed by: Noris Glover (Rn) BESSIE Tiwari - Fully Assessed Primary Visit Diagnosis:RANDEE (obstructive sleep apnea) [G47.33] Other Visit Diagnosis:S/P gastric bypass [Z98.84] Order(s):POLYSOMNOGR AM (PSG) [[id number]] Order #: [id number] FUTURE Prescriptions as of 11/18/2018 Sig: FAMOTIDINE 20 MG TABLET Take 1 tablet by mouth twice * URSODIOL 250 MG TABLET Take 1 tablet by mouth three * DIPHENHYDRAMINE 25 MG CAPSULE BUDESONIDE-FORMOTERO L HFA 80 * Inhale as instructed. CETIRIZINE 10 MG TABLET Take 10 mg by mouth. MONTELUKAST 10 MG TABLET Take 10 mg by mouth. MULTIPLE VITAMINS ORAL Take by mouth. PAROXETINE 10 MG TABLET Take 10 mg by mouth. MELOXICAM 15 MG TABLET-IRRITA* AMLODIPINE 10 MG TABLET Take 10 mg by mouth once danika* Problem List As Of Date 11/18/2018 Noted Resolved RANDEE (obstructive sleep apnea) [G47.33] INVALID FOR* Essential hypertension [I10] INVALID FOR* Morbid obesity (HCC) [E66.01] INVALID FOR* Preoperative examination [Z01.818] INVALID FOR* More... Acute postoperative pain [G89.18] INVALID FOR* Obesity, Class III, BMI >= 40 [E66.01] INVALID FOR* S/P gastric bypass [Z98.84] INVALID FOR* Encounter Status:Closed by LIDIA LEMUS on 11/18/18 Normal [facility] PROGRESSon 11-18-2018 PROGRESS HNO ID: [id number] Author: Lidia (Samantha) Mariah Service: ? Author Type: Nurse Practitioner Type: Progress Notes Filed: 11/18/2018 8:32 AM Note Text: [facility] Follow up/ Established patient visit Date of last visit : 05/13/2018 IMPRESSION: Randee (obstructive sleep apnea) (primary encounter diagnosis) ? 37 y/o female bariatric surgery candidate with PMH HTN and morbid obesity. - Severe RANDEE on split night PSG performed at outside facility (results in scanned documents). AHI 123. O2 gonzalo 61%. - Recommendation is CPAP 14 cmH2O which was her current pressure. - Restarted PAP therapy at the end of February 2018 after the ramp was turned off (felt she was not getting enough air). - Recommended using PAP therapy nightly to further improve her daytime sleepiness. - No drowsy driving. - DME is [employer] however she purchases her supplies online due to cost. - Plans to have bariatric wt loss surgery in June. Discussed reassessing RANDEE once she loses 100 lbs. ? - F/U in 7 months. ? Lidia Lemus, DIALYSIS EQUIPMENT TECHNICIAN.GREASE REFINING SUPERVISOR Interval history : Here for follow up for RANDEE f/u. Bariatric surgery 08/05/18. Lost 123 lbs since starting her wt loss journey. SLEEP APNEA Sleep apnea type : RANDEE, Most Recent Apnea-Hypopnea Index (AHI): 123 Treatment : PAP therapy DME: [facility] PAP History: She has not used her CPAP cmH2O machine since 3 weeks after her surgery after developing pneumonia. She continues to have a cough. She has an appointment schedule with pulmonary in 2 weeks to discuss. SLEEP FUNCTIONAL OUTCOME MEASURES See end of note for questionnaire answers PMH, PSH, SH: Reviewed SLEEP RELATED ROS Review of Systems ALLERGIES No Known Allergies CURRENT MEDICATIONS: famotidine (PEPCID) 20 mg tablet Take 1 tablet by mouth twice daily. ursodiol (CHELA 250) 250 mg tablet Take 1 tablet by mouth three times daily. diphenhydrAMINE (BENADRYL) 25 mg capsule budesonide-formotero l (SYMBICORT) 80-4.5 mcg/actuation inhaler Inhale as instructed. cetirizine (ZYRTEC) 10 mg tablet Take 10 mg by mouth. montelukast (SINGULAIR) 10 mg tablet Take 10 mg by mouth. multivitamin (MULTIPLE VITAMINS ORAL) Take by mouth. PARoxetine (PAXIL) 10 mg tablet Take 10 mg by mouth. Meloxicam AND Irritant Cntr #2 15 mg kit amLODIPine (NORVASC) 10 mg tablet Take 10 mg by mouth once daily. PHYSICAL EXAMINATION: Vital Signs: BP 130/80 Pulse 70 Resp 18 PHYSICAL EXAM: General appearance: NAD Mental status: awake and alert Neuro: normal gait, speech fluent IMPRESSION: Randee (obstructive sleep apnea) (primary encounter diagnosis) S/p gastric bypass Very pleasant 38 y/o female post gastric bypass with 123 wt loss to date presents for RANDEE f/u. - Has not used CPAP since late August due to cough from pneumonia. - Will retest for RANDEE post wt loss. PLAN: - PSG. Pt plans to do near home at outside facility. - Call pt with results. Lidia Lemus APRN.[facility] Normal [facility] CNOVon 11-11-2018 CNOV Office Visit (GENBMI) MALICKVIVIANE ([id number]) 1980 F Date Time Provider Department 11/11/18 11:00 AM ADWOA PANDA During your visit today, we recorded the following information about you: Pulse Blood pressure Weight Height 70/minute 138/82 110.7 kg 1.645 m Adwoa Panda MD 11/25/2018 4:59 PM Signed Name: Viviane Teresa Index Surgery Date of Surgery: 08/05/2018 Surgeon: Heath Echols MD Surgical Procedure: LAPAROSCOPIC GASTRIC RESTRICTIVE SURG W/ BYPASS AND PARKER-EN-Y Pre-surgical weight: 139.7 kg (308 lb) Override Index Surgery Information? No Other Bariatric Surgeries None Visit: 3 months Today's Visit: Wt 110.7 kg (244 lb) BMI 40.91 kg/m2 BMI 40.91 kg/(m2) Last Visit: Wt: 125.7 kg (277 lb 1.6 oz) BMI: 46.45 kg/(m2) Total weight loss: 29 kg (64 lb) Gatzke weight: 67.5 kg (148 lb 13.8 oz) Excess weight: 72.2 kg (159 lb 2.2 oz) % of excess body weight lost: 29 kg (64 lb) (40.22% of excess weight loss) COMPLICATIONS SINCE LAST VISIT?: NONE DIET INTAKE: tolerates Phase V diet See Meseret Amor's Business Process Consultant notes below as part of shared medical/nutrition SMA DAILY SUPPLEMENTS: Calcium: Calcium Citrate w/ vitamin D (1200 - 1500mg) Multivitamin AND Minerals: Celebrate MVI ADEK, tid Iron Supplement: yes Vitamin B12: yes Vitamin D3: No Other: Actigall 300 mg twice daily Pepcid, Biotin; Gallant 3 daily;osteobiflex ease daily EXERCISE: elliptical; bike; walk at gym also weight qjnmpftc-09-66 min/day, 6x a week Are you attending any Support Groups? No attendance Current Outpatient Medications: famotidine (PEPCID) 20 mg tablet Take 1 tablet by mouth twice daily. ursodiol (CHELA 250) 250 mg tablet Take 1 tablet by mouth three times daily. diphenhydrAMINE (BENADRYL) 25 mg capsule budesonide-formotero l (SYMBICORT) 80-4.5 mcg/actuation inhaler Inhale as instructed. cetirizine (ZYRTEC) 10 mg tablet Take 10 mg by mouth. montelukast (SINGULAIR) 10 mg tablet Take 10 mg by mouth. multivitamin (MULTIPLE VITAMINS ORAL) Take by mouth. PARoxetine (PAXIL) 10 mg tablet Take 10 mg by mouth. Meloxicam AND Irritant Cntr #2 15 mg kit amLODIPine (NORVASC) 10 mg tablet Take 10 mg by mouth once daily. No current facility-administere d medications for this visit. REVIEW OF SYSTEMS: denies nausea, vomiting, dumping syndrome PHYSICAL EXAM: BP 138/82 (BP Site: Right Arm, BP Position: Sitting, BP Cuff Size: Large Adult) Pulse 70 Ht 164.5 cm (5' 4.76 ) Wt 110.7 kg (244 lb) BMI 40.91 kg/m? Gen: NAD, AANDOx3, obese, pleasant lady Heent: Throat clear, perrl Heart: RRR Lungs: CTAB Abd: Soft, NT, ND, scars look well-healed Ext: No edema noted A/P: 38 y/o lady status post: Laparoscopic Parker-en-Y gastric bypass (120-cm antecolic antegastric Parker limb, and 100-cm biliopancreatic limb), Esophagogastroscopy done on: 08/05/[address] Echols 1)status post bariatric surgery. Indicates an eventual, long-term weight loss goal of: Close to 160# Indicates the following as possible challenges to ongoing healthy lifestyle changes: Finding time to keep exercising-doing well so far 2)Health issues which have improved/resolved since surgery: -RANDEE possibly 3)Asthma symptoms-worsening since surgery -will refer to Pulmonary medicine-patient prefers to be seen at [facility]. DISPOSITION: Return 3 month to Post-op follow up/ individual office visit EDUCATION: Pt encouraged to continue with positive lifestyle changes and daily/vitamin intake REFERRALS: N/A LABS: Today: none In 3 months: CBC W DIFF, CMP, Vitamin B12, Iron/ TIBC, Lipid panel, TSH, PTH Intact, Folate, 25 Hydroxy, HBA1C and B1 Greater than 50% of this 60 minute shared medical office visit facilitated by Business Process Consultant Meseret Amor spent in education, discussion and development of a plan for the above. Adwoa Panda MD - === AMBULATORY PATIENT EDUCATION NOTE-Shared Medical/Nutrition Appointment TOPIC: LIFE STYLE CHANGES: Post-op weight loss surgery: Diet, Exercise, Vitamin/Minerals, Fluids METHOD OF INSTRUCTION: Individual instruction Group class instruction PATIENT / FAMILY RESPONSE: Nutrition outcome statement: Expect attention to diet to assist with weight management and minimum 1200 calories/2 liters of fluids per day. Patient attended shared medical group. Discussion included protein intake, fluid consumption, vitamin/mineral use/consumption, physical activity in relation to Parker en Y Gastric Bypass surgery goals. Patient has demonstrated weight loss of 104 pounds since initial nutrition assessment (348 pounds) accounting for 48.3 % loss excess (215 lbs) body weight significant weight loss 40 pounds achieved prior to surgery which is allowing for higher than anticipated weight loss. Pre-surgery weight 308 lbs. Excess at surgery: 174 lbs indicating 36% loss excess from surgery using mid-point range IBW 134 lbs for assessment. Weight loss tracking as anticipated from surgery Reviewed nutrition principles of: 1.Take all recommended vitamin/minerals. See page 43 of Your Guide to Surgery. . It is okay to use combination vitamin/minerals to reduce pill volume. 2. Continue to consume protein to goal: 73-91 grams protein per day; Increase calories from 800 calories/day to 5005-2422 calories per day by next session. 3. Fluid goal: 64 ounces/day 4. Exercise goal: 200 minutes/week and strength/resistance training 2x per week for 10-20 minutes/session Patient is to follow-up: 3 months to access adherence to goals Electronically Signed By: Meseret Amor RD In Department: Nutrition Therapy Adwoa Panda MD 11/11/2018 11:06 AM Signed Visit: 3 months Today's Visit: Wt 110.7 kg (244 lb) BMI 40.91 kg/m2 BMI 40.91 kg/(m2) Last Visit: Wt: 125.7 kg (277 lb 1.6 oz) BMI: 46.45 kg/(m2) Total weight loss: 29 kg (64 lb) Gatzke weight: 67.5 kg (148 lb 13.8 oz) Excess weight: 72.2 kg (159 lb 2.2 oz) % of excess body weight lost: 29 kg (64 lb) (40.22% of excess weight loss) Adwoa Panda MD 01/30/2019 10:53 AM Signed Addended by: ADWOA PANDA MD on: 01/30/2019 10:53 AM Modules accepted: Orders Adwoa Panda MD 02/11/2019 11:06 AM Signed Addended by: ADWOA PANDA MD on: 02/11/2019 11:06 AM Modules accepted: Orders Referring Provider: SELF [[id number]] Allergies As of Date: 11/11/2018 (No Known Allergies) Date Reviewed: 11/11/2018 Reviewed by: Ellen Adames Ma - Fully Assessed Reason for Visit: Established Patient [175] 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] Other Visit Diagnoses:Uncomplica perri asthma, unspecified asthma severity, unspecified whether persistent [J45.909] S/P gastric bypass [Z98.84] BMI 40.0-44.9, adult (HCC) [Z68.41] Paresthesia [R20.2] Order(s):CONSULT TO PULMONARY MEDICINE [[id number]] Order #: [id number]: 1 FUTURE CBC [SQCBC] Order #: [id number] FUTURE COMP METABOLIC PANEL [SQCMP] Order #: [id number] FUTURE FOLATE SERUM [SQSERFOL] Order #: [id number] FUTURE HGB A1C [QVTYM8W] Order #: [id number] FUTURE IRON + TIBC [SQIRON] Order #: [id number] FUTURE LIPID PANEL BASIC [SQLIPB] Order #: [id number] FUTURE PTH INTACT BLD [SQPTHI] Order #: [id number] FUTURE TSH BLD [SQTSH] Order #: [id number] FUTURE VITAMIN B12 BLOOD [SQB12] Order #: [id number] FUTURE VITAMIN D 25 HYDROXY [SQVITD] Order #: [id number] FUTURE COPPER BLOOD [SQCOPPER] Order #: [id number] FUTURE ZINC BLD [SQZINC] Order #: [id number] FUTURE VITAMIN B3/NIACIN, PLASMA [LIP3TYM] Order #: [id number] FUTURE VITAMIN B6/PYRIDOXIN [SQVITB6] Order #: [id number] FUTURE Prescriptions as of 11/11/2018 Sig: FAMOTIDINE 20 MG TABLET Take 1 tablet by mouth twice * URSODIOL 250 MG TABLET Take 1 tablet by mouth three * DIPHENHYDRAMINE 25 MG CAPSULE CETIRIZINE 10 MG TABLET Take 10 mg by mouth. MONTELUKAST 10 MG TABLET Take 10 mg by mouth. MULTIPLE VITAMINS ORAL Take by mouth. PAROXETINE 10 MG TABLET Take 10 mg by mouth. MELOXICAM 15 MG TABLET-IRRITA* AMLODIPINE 10 MG TABLET Take 10 mg by mouth once danika* X BUDESONIDE-FORMOTERO L HFA 80 * Inhale as instructed. Problem List As Of Date 11/11/2018 Noted Resolved RANDEE (obstructive sleep apnea) [G47.33] INVALID FOR* Essential hypertension [I10] INVALID FOR* Morbid obesity (HCC) [E66.01] INVALID FOR* Preoperative examination [Z01.818] INVALID FOR* More... Acute postoperative pain [G89.18] INVALID FOR* Obesity, Class III, BMI >= 40 [E66.01] INVALID FOR* S/P gastric bypass [Z98.84] INVALID FOR* Other instructions from your clinician: Visit: 3 months Today's Visit: Wt 110.7 kg (244 lb) BMI 40.91 kg/m2 BMI 40.91 kg/(m2) Last Visit: Wt: 125.7 kg (277 lb 1.6 oz) BMI: 46.45 kg/(m2) Total weight loss: 29 kg (64 lb) Gatzke weight: 67.5 kg (148 lb 13.8 oz) Excess weight: 72.2 kg (159 lb 2.2 oz) % of excess body weight lost: 29 kg (64 lb) (40.22% of excess weight loss) Disposition: Return in about 3 months (around 02/11/2019) for 6 month postop . Follow-up and Disposition History Recorded Encounter Status:Closed by ADWOA PANDA MD on 11/25/18 Normal [facility] CNOV Office Visit (GSPSMN) VIVIANE TERESA ([id number]) 1980 F Date Time Provider Department 11/11/18 10:00 AM [facility] During your visit today, we recorded the following information about you: Michelle Chapa, PhD 11/11/2018 10:51 AM Signed [facility] Cost Center: [facility] Billing code:[id number] / [place] CPT Code: 17206 Psychotherapy 16-37 minutes 79977 Brief Emotional/Behavioral Assessment with scoring/documentatio n Bariatric Behavioral Services Progress Note 11/11/2018 Start/Stop Time: Time initiated session: 10:10 AM to 10:45 AM Surgery date: 08/05/2018 Current weight: 239 lbs. (on home scale) Weight loss since surgery: 63 lbs. Surgeon: Dr. Echols Type of surgery: gastric bypass Psychologist: Charlene Wooten, Ph.D. Psychologist Subjective: Patient attended a 3 month postsurgery behavioral health psychotherapy session. The patient's hospital experience and adjustment postsurgery were discussed. Patient discussed benefits they were experiencing after surgery and processed complications. Tools to enhance postsurgical outcomes, including coping skills for social situations and resources such as bariatric support groups, were offered. Patient set goals for lifestyle changes to enhance surgical outcomes. Patient identified challenges to accomplishing goals and lifestyle changes. Discussed normalization of adjustment issues. Topics discussed included: Fear of failure/weight regain, maintaining motivation, risks of alcohol, tobacco, and substances after surgery, managing social reactions, implementing regular exercise, changes in mood and maladaptive eating patterns. Interventions included: self-monitoring, goal setting, implementing regular meals/planning, engaging supports/support groups and cognitive challenging/restruct uring. Patient noted doing well after surgery and she is meeting all behavioral goals consistently. She had questions about medication absorption, especially for her asthma and allergy meds and was encouraged to ask Dr. Panda at her medical appointment later today. Patient weighs herself regularly and was able to discuss non-scale victories such as increased energy, being more comfortable, fitness improvements, smaller clothing and shoes, and keeping up with her 3 sons (ages 14, 9, and 7). Ms. Teresa had some concerns about hanging skin on her arms. Post-surgically, the patient reports the following medical complications: Pneumonia/asthma flares The following post-surgical psychological complications were reported: None reported. The patient reports the following health behaviors: exercising, obtaining 60 g protein, obtaining 64 oz of water, eating regular meals, taking vitamins, eating slowly and eating AND drinking. The patients notes the following problematic behaviors: not keeping a food log. Patient has noticed the following benefits postsurgery with weight loss: increased mobility, improved mood, improved self-esteem, increased energy, improved sleep, smaller clothes size, improved body image and less pain. Future goals include: improve body image, get off medications and body contouring (excess skin removal) AUDIT-C = 0 (Negative) PHQ-9 = 1 (0-4) minimal depression Objective: Affect is: Appropriate and Mood congruent. The patient paid excellent attention during the session and did verbalize understanding of the material presented. MEDICATIONS Current Outpatient Medications: famotidine (PEPCID) 20 mg tablet Take 1 tablet by mouth twice daily. ursodiol (CHELA 250) 250 mg tablet Take 1 tablet by mouth three times daily. diphenhydrAMINE (BENADRYL) 25 mg capsule budesonide-formotero l (SYMBICORT) 80-4.5 mcg/actuation inhaler Inhale as instructed. cetirizine (ZYRTEC) 10 mg tablet Take 10 mg by mouth. montelukast (SINGULAIR) 10 mg tablet Take 10 mg by mouth. multivitamin (MULTIPLE VITAMINS ORAL) Take by mouth. PARoxetine (PAXIL) 10 mg tablet Take 10 mg by mouth. Meloxicam AND Irritant Cntr #2 15 mg kit amLODIPine (NORVASC) 10 mg tablet Take 10 mg by mouth once daily. No current facility-administere d medications for this visit. Medication Changes: The patient was on mental health medication before surgery.The patient reports restarting psych meds since surgery. The patient was not in psychotherapy/psychi atry presurgery. Number of weight loss surgery groups attended: none Number of hours slept in 24 hour periods: 5-6 hrs On a CPAP/BiPAP before surgery: Yes On a CPAP/BiPAP after surgery: Yes-- 5-6 hrs Assessment: Goals are in progress. 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) Plan/Recommendations : *Life After Surgery group *Follow up with psychology at 3,6, 12, 18 months and yearly or as needed *attend bariatric surgery support groups *implement exercise program *do not use alcohol, tobacco, or drugs *Continue to work with PCP on psychotropic medication use Patient education provided: support group list and psychology visit follow up schedule/OMER Chapa, PhD Clinical Health Psychologist Referring Provider: HEATH ECHOLS [[id number]] Allergies As of Date: 11/11/2018 (No Known Allergies) Date Reviewed: 11/11/2018 Reviewed by: Ellen Adames Ma - Fully Assessed Primary Visit Diagnosis:Psychologi sophie factors affecting medical condition [F54] Other Visit Diagnosis:Postgastri c surgery syndrome [K91.1] Prescriptions as of 11/11/2018 Sig: FAMOTIDINE 20 MG TABLET Take 1 tablet by mouth twice * URSODIOL 250 MG TABLET Take 1 tablet by mouth three * DIPHENHYDRAMINE 25 MG CAPSULE BUDESONIDE-FORMOTERO L HFA 80 * Inhale as instructed. CETIRIZINE 10 MG TABLET Take 10 mg by mouth. MONTELUKAST 10 MG TABLET Take 10 mg by mouth. MULTIPLE VITAMINS ORAL Take by mouth. PAROXETINE 10 MG TABLET Take 10 mg by mouth. MELOXICAM 15 MG TABLET-IRRITA* AMLODIPINE 10 MG TABLET Take 10 mg by mouth once danika* Problem List As Of Date 11/11/2018 Noted Resolved RANDEE (obstructive sleep apnea) [G47.33] INVALID FOR* Essential hypertension [I10] INVALID FOR* Morbid obesity (HCC) [E66.01] INVALID FOR* Preoperative examination [Z01.818] INVALID FOR* More... Acute postoperative pain [G89.18] INVALID FOR* Obesity, Class III, BMI >= 40 [E66.01] INVALID FOR* S/P gastric bypass [Z98.84] INVALID FOR* Encounter Status:Closed by MICHELLE CHAPA PHD on 11/11/18 [facility] PROGRESSon 11-11-2018 PROGRESS HNO ID: [id number] Author: Adwoa Panda Service: ? Author Type: Physician Type: Progress Notes Filed: 11/25/2018 4:59 PM Note Text: Name: Viviane Teresa Index Surgery Date of Surgery: 08/05/2018 Surgeon: Heath Echols MD Surgical Procedure: LAPAROSCOPIC GASTRIC RESTRICTIVE SURG W/ BYPASS AND PARKER-EN-Y Pre-surgical weight: 139.7 kg (308 lb) Override Index Surgery Information? No Other Bariatric Surgeries None Visit: 3 months Today's Visit: Wt 110.7 kg (244 lb) BMI 40.91 kg/m2 BMI 40.91 kg/(m2) Last Visit: Wt: 125.7 kg (277 lb 1.6 oz) BMI: 46.45 kg/(m2) Total weight loss: 29 kg (64 lb) Gatzke weight: 67.5 kg (148 lb 13.8 oz) Excess weight: 72.2 kg (159 lb 2.2 oz) % of excess body weight lost: 29 kg (64 lb) (40.22% of excess weight loss) COMPLICATIONS SINCE LAST VISIT?: NONE DIET INTAKE: tolerates Phase V diet See Meseret Amor's Business Process Consultant notes below as part of shared medical/nutrition SMA DAILY SUPPLEMENTS: Calcium: Calcium Citrate w/ vitamin D (1200 - 1500mg) Multivitamin AND Minerals: Celebrate MVI ADEK, tid Iron Supplement: yes Vitamin B12: yes Vitamin D3: No Other: Actigall 300 mg twice daily Pepcid, Biotin; Gallant 3 daily;osteobiflex ease daily EXERCISE: elliptical; bike; walk at gym also weight xqejsbpw-45-55 min/day, 6x a week Are you attending any Support Groups? No attendance Current Outpatient Medications: famotidine (PEPCID) 20 mg tablet Take 1 tablet by mouth twice daily. ursodiol (CHELA 250) 250 mg tablet Take 1 tablet by mouth three times daily. diphenhydrAMINE (BENADRYL) 25 mg capsule budesonide-formotero l (SYMBICORT) 80-4.5 mcg/actuation inhaler Inhale as instructed. cetirizine (ZYRTEC) 10 mg tablet Take 10 mg by mouth. montelukast (SINGULAIR) 10 mg tablet Take 10 mg by mouth. multivitamin (MULTIPLE VITAMINS ORAL) Take by mouth. PARoxetine (PAXIL) 10 mg tablet Take 10 mg by mouth. Meloxicam AND Irritant Cntr #2 15 mg kit amLODIPine (NORVASC) 10 mg tablet Take 10 mg by mouth once daily. No current facility-administere d medications for this visit. REVIEW OF SYSTEMS: denies nausea, vomiting, dumping syndrome PHYSICAL EXAM: BP 138/82 (BP Site: Right Arm, BP Position: Sitting, BP Cuff Size: Large Adult) Pulse 70 Ht 164.5 cm (5' 4.76 ) Wt 110.7 kg (244 lb) BMI 40.91 kg/m? Gen: NAD, AANDOx3, obese, pleasant lady Heent: Throat clear, perrl Heart: RRR Lungs: CTAB Abd: Soft, NT, ND, scars look well-healed Ext: No edema noted A/P: 38 y/o lady status post: Laparoscopic Parker-en-Y gastric bypass (120-cm antecolic antegastric Parker limb, and 100-cm biliopancreatic limb), Esophagogastroscopy done on: 08/05/[address] Echols 1)status post bariatric surgery. Indicates an eventual, long-term weight loss goal of: Close to 160# Indicates the following as possible challenges to ongoing healthy lifestyle changes: Finding time to keep exercising-doing well so far 2)Health issues which have improved/resolved since surgery: -RANDEE possibly 3)Asthma symptoms-worsening since surgery -will refer to Pulmonary medicine-patient prefers to be seen at [facility]. DISPOSITION: Return 3 month to Post-op follow up/ individual office visit EDUCATION: Pt encouraged to continue with positive lifestyle changes and daily/vitamin intake REFERRALS: N/A LABS: Today: none In 3 months: CBC W DIFF, CMP, Vitamin B12, Iron/ TIBC, Lipid panel, TSH, PTH Intact, Folate, 25 Hydroxy, HBA1C and B1 Greater than 50% of this 60 minute shared medical office visit facilitated by Business Process Consultant Meseret Amor spent in education, discussion and development of a plan for the above. Adwoa Panda MD - === AMBULATORY PATIENT EDUCATION NOTE-Shared Medical/Nutrition Appointment TOPIC: LIFE STYLE CHANGES: Post-op weight loss surgery: Diet, Exercise, Vitamin/Minerals, Fluids METHOD OF INSTRUCTION: Individual instruction Group class instruction PATIENT / FAMILY RESPONSE: Nutrition outcome statement: Expect attention to diet to assist with weight management and minimum 1200 calories/2 liters of fluids per day. Patient attended shared medical group. Discussion included protein intake, fluid consumption, vitamin/mineral use/consumption, physical activity in relation to Parker en Y Gastric Bypass surgery goals. Patient has demonstrated weight loss of 104 pounds since initial nutrition assessment (348 pounds) accounting for 48.3 % loss excess (215 lbs) body weight significant weight loss 40 pounds achieved prior to surgery which is allowing for higher than anticipated weight loss. Pre-surgery weight 308 lbs. Excess at surgery: 174 lbs indicating 36% loss excess from surgery using mid-point range IBW 134 lbs for assessment. Weight loss tracking as anticipated from surgery Reviewed nutrition principles of: 1.Take all recommended vitamin/minerals. See page 43 of Your Guide to Surgery. . It is okay to use combination vitamin/minerals to reduce pill volume. 2. Continue to consume protein to goal: 73-91 grams protein per day; Increase calories from 800 calories/day to 4755-0335 calories per day by next session. 3. Fluid goal: 64 ounces/day 4. Exercise goal: 200 minutes/week and strength/resistance training 2x per week for 10-20 minutes/session Patient is to follow-up: 3 months to access adherence to goals Electronically Signed By: Meseret Amor RD In Department: Nutrition Therapy [facility] PROGRESS HNO ID: [id number] Author: Michelle Chapa Service: ? Author Type: Physician Type: Progress Notes Filed: 11/11/2018 10:51 AM Note Text: [facility] Cost Center: [facility] Billing code:[id number] / [place] CPT Code: 68345 Psychotherapy 16-37 minutes [id number] Brief Emotional/Behavioral Assessment with scoring/documentatio n Bariatric Behavioral Services Progress Note 11/11/2018 Start/Stop Time: Time initiated session: 10:10 AM to 10:45 AM Surgery date: 08/05/2018 Current weight: 239 lbs. (on home scale) Weight loss since surgery: 63 lbs. Surgeon: Dr. Echols Type of surgery: gastric bypass Psychologist: Charlene Wooten, Ph.D. Psychologist Subjective: Patient attended a 3 month postsurgery behavioral health psychotherapy session. The patient's hospital experience and adjustment postsurgery were discussed. Patient discussed benefits they were experiencing after surgery and processed complications. Tools to enhance postsurgical outcomes, including coping skills for social situations and resources such as bariatric support groups, were offered. Patient set goals for lifestyle changes to enhance surgical outcomes. Patient identified challenges to accomplishing goals and lifestyle changes. Discussed normalization of adjustment issues. Topics discussed included: Fear of failure/weight regain, maintaining motivation, risks of alcohol, tobacco, and substances after surgery, managing social reactions, implementing regular exercise, changes in mood and maladaptive eating patterns. Interventions included: self-monitoring, goal setting, implementing regular meals/planning, engaging supports/support groups and cognitive challenging/restruct uring. Patient noted doing well after surgery and she is meeting all behavioral goals consistently. She had questions about medication absorption, especially for her asthma and allergy meds and was encouraged to ask Dr. Panda at her medical appointment later today. Patient weighs herself regularly and was able to discuss non-scale victories such as increased energy, being more comfortable, fitness improvements, smaller clothing and shoes, and keeping up with her 3 sons (ages 14, 9, and 7). Ms. Teresa had some concerns about hanging skin on her arms. Post-surgically, the patient reports the following medical complications: Pneumonia/asthma flares The following post-surgical psychological complications were reported: None reported. The patient reports the following health behaviors: exercising, obtaining 60 g protein, obtaining 64 oz of water, eating regular meals, taking vitamins, eating slowly and eating AND drinking. The patients notes the following problematic behaviors: not keeping a food log. Patient has noticed the following benefits postsurgery with weight loss: increased mobility, improved mood, improved self-esteem, increased energy, improved sleep, smaller clothes size, improved body image and less pain. Future goals include: improve body image, get off medications and body contouring (excess skin removal) AUDIT-C = 0 (Negative) PHQ-9 = 1 (0-4) minimal depression Objective: Affect is: Appropriate and Mood congruent. The patient paid excellent attention during the session and did verbalize understanding of the material presented. MEDICATIONS Current Outpatient Medications: famotidine (PEPCID) 20 mg tablet Take 1 tablet by mouth twice daily. ursodiol (CHELA 250) 250 mg tablet Take 1 tablet by mouth three times daily. diphenhydrAMINE (BENADRYL) 25 mg capsule budesonide-formotero l (SYMBICORT) 80-4.5 mcg/actuation inhaler Inhale as instructed. cetirizine (ZYRTEC) 10 mg tablet Take 10 mg by mouth. montelukast (SINGULAIR) 10 mg tablet Take 10 mg by mouth. multivitamin (MULTIPLE VITAMINS ORAL) Take by mouth. PARoxetine (PAXIL) 10 mg tablet Take 10 mg by mouth. Meloxicam AND Irritant Cntr #2 15 mg kit amLODIPine (NORVASC) 10 mg tablet Take 10 mg by mouth once daily. No current facility-administere d medications for this visit. Medication Changes: The patient was on mental health medication before surgery.The patient reports restarting psych meds since surgery. The patient was not in psychotherapy/psychi atry presurgery. Number of weight loss surgery groups attended: none Number of hours slept in 24 hour periods: 5-6 hrs On a CPAP/BiPAP before surgery: Yes On a CPAP/BiPAP after surgery: Yes-- 5-6 hrs Assessment: Goals are in progress. 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) Plan/Recommendations : *Life After Surgery group *Follow up with psychology at 3,6, 12, 18 months and yearly or as needed *attend bariatric surgery support groups *implement exercise program *do not use alcohol, tobacco, or drugs *Continue to work with PCP on psychotropic medication use Patient education provided: support group list and psychology visit follow up schedule/OMER Chapa, PhD Clinical Health Psychologist [facility] CNCNPATEDon 09-08-2018 CNCNPATED Education (GENBMI) VIVIANE TERESA ([id number]) 1980 F Date Time Provider Department 09/08/18 12:00 PM BMI NUTRITION III GENBMI Reason for Visit: Reassessment [674] Patient Education [91] Primary Visit Diagnosis:Class 3 severe obesity due to excess calories with body mass index (BMI) of 45.0 to 49.9 in adult, unspecified whether serious comorbidity present ([facility]) [E66.01, Z68.42] Other Visit Diagnoses:S/P gastric bypass [Z98.84] Dietary counseling and surveillance [Z71.3] During your visit today, we recorded the following information about you: Weight Height 125.7 kg 1.645 m Allergies As of Date: 09/08/2018 (No Known Allergies) Date Reviewed: 09/08/2018 Reviewed by: Clarke Barraza RD - Fully Assessed Prescriptions as of 09/08/2018 Sig: FAMOTIDINE 20 MG TABLET Take 1 tablet by mouth twice * URSODIOL 250 MG TABLET Take 1 tablet by mouth three * DIPHENHYDRAMINE 25 MG CAPSULE BUDESONIDE-FORMOTERO L HFA 80 * Inhale as instructed. CETIRIZINE 10 MG TABLET Take 10 mg by mouth. MONTELUKAST 10 MG TABLET Take 10 mg by mouth. MULTIPLE VITAMINS ORAL Take by mouth. PAROXETINE 10 MG TABLET Take 10 mg by mouth. MELOXICAM 15 MG TABLET-IRRITA* AMLODIPINE 10 MG TABLET Take 10 mg by mouth once danika* Letter Text Encounter Status:Closed by CLARKE BARRAZA on 09/17/18 [facility] CNOVon 09-08-2018 CNOV Office Visit (GENBMI) VIVIANE TERESA ([id number]) 1980 F Date Time Provider Department 09/08/18 10:30 AM SHAHLA RODRIGUEZ (COORD) GENBMI During your visit today, we recorded the following information about you: Pulse Blood pressure Weight Height 83/minute 142/96 125.7 kg 1.645 m Shahla Rodriguez Coord 09/10/2018 3:31 PM Signed 1 Month Post OP Visit STUDY TITLE: Mechanisms that Predict Weight Trajectory after Bariatric Surgery: The Interactive Roles of Behavior and Biology IRB NO.: [id number] SPRAY APPLICATOR: Charlene Wooten, PhD COORDINATOR/Research Nurse/Chalk Extruding Machine Operator: Shahla Rodriguez Pager: [phone] Patient here for 1 month follow up visit per protocol. The following procedures will be performed at 1 Month Post OP visit: Anthropometric Measures and Vitals Height: Done Weight: Done BP: Done Pulse: Done Body mass index is 46.45 kg/m?. Confirm Liquid Diet start date as: 07/25/2018 Medication and Health Hx: Above medications reviewed with patient and are correct as listed. Adverse Events: Patient reports no adverse events [facility] Reminder: Issued Structured Clinical Interview for DSM-5 (SCID-5): Scheduled for Saturday, September 15, 2018 from 5:30 PM - 7:30 PM w/Kati (177) [facility] Toolkit: Completed Stool Specimen Collected: Done (patient returned with/ brought specimen on 09/07/2018 , she documented it as being collected at 10:45 am ) I placed specimen in cooler and delivered it to the freezer in the [facility] pending shipping. Questionnaires completed per protocol. [facility] Assessment completed Username and password given for login to [facility] to complete dietary journal starting 09/08/2018 though 09/10/2018. Actigraph issued # [id number], to be worn 24/7 (except when in water) for 7 days starting 09/08/2018 through 09/15/2018 and returned in UPS pre-paid stamped envelope tracking number [id number] [phone] provided. Patient to call and schedule next appointment in 5 months. Gift Card#: [phone] [id number] Shahla Rodriguez MBA Research Coordinator Referring Provider: SELF [200] Allergies As of Date: 09/08/2018 (No Known Allergies) Date Reviewed: 09/08/2018 Reviewed by: Clarke (Loki) Georgiana - Fully Assessed Primary Visit Diagnosis:Research study patient [Z00.6] Prescriptions as of 09/08/2018 Sig: FAMOTIDINE 20 MG TABLET Take 1 tablet by mouth twice * URSODIOL 250 MG TABLET Take 1 tablet by mouth three * DIPHENHYDRAMINE 25 MG CAPSULE BUDESONIDE-FORMOTERO L HFA 80 * Inhale as instructed. CETIRIZINE 10 MG TABLET Take 10 mg by mouth. MONTELUKAST 10 MG TABLET Take 10 mg by mouth. MULTIPLE VITAMINS ORAL Take by mouth. PAROXETINE 10 MG TABLET Take 10 mg by mouth. MELOXICAM 15 MG TABLET-IRRITA* AMLODIPINE 10 MG TABLET Take 10 mg by mouth once danika* Problem List As Of Date 09/08/2018 Noted Resolved RANDEE (obstructive sleep apnea) [G47.33] INVALID FOR* Essential hypertension [I10] INVALID FOR* Morbid obesity (HCC) [E66.01] INVALID FOR* Preoperative examination [Z01.818] INVALID FOR* More... Acute postoperative pain [G89.18] INVALID FOR* Obesity, Class III, BMI >= 40 [E66.01] INVALID FOR* S/P gastric bypass [Z98.84] INVALID FOR* Encounter Status:Closed by SHAHLA HAIRSTON on 09/10/18 [facility] CNOV Office Visit (GENBMI) VIVIANE TERESA ([id number]) 1980 F Date Time Provider Department 09/08/18 9:00 AM HEATH ECHOLS During your visit today, we recorded the following information about you: Temperature Pulse Respiration Blood pressure 98 degrees 83/minute 16/minute 142/96 Weight 125.6 kg Heath Echols MD 09/08/2018 9:46 AM Signed Name: Viviane Teresa Index Surgery Date of Surgery: 08/05/2018 Surgeon: Heath Echols MD Surgical Procedure: LAPAROSCOPIC GASTRIC RESTRICTIVE SURG W/ BYPASS AND PARKER-EN-Y Pre-surgical weight: 139.7 kg (308 lb) Override Index Surgery Information? No Other Bariatric Surgeries None Visit: 4 weeks Today's Visit: Wt 125.6 kg (277 lb) BMI 46.1 kg/m2 BMI 46.10 kg/(m2) Last Visit: Wt: 133.4 kg (294 lb) BMI: 48.92 kg/(m2) Total weight loss: 14.1 kg (31 lb) Gatzke weight: 67.5 kg (148 lb 13.8 oz) Excess weight: 72.2 kg (159 lb 2.2 oz) % of excess body weight lost: 14.1 kg (31 lb) (19.48% of excess weight loss) COMPLICATIONS SINCE LAST VISIT?: NONE DIET INTAKE: compliant with Phase 4 diet DAILY SUPPLEMENTS: Calcium: Calcium Citrate w/ vitamin D (1200 - 1500mg) Multivitamin AND Minerals: 3 times daily Iron Supplement: 30-60mcg daily Vitamin B12: 2500mcg Vitamin D3: included in multi-vitamin Other: Actigall 300 mg twice daily EXERCISE: daily cardio ~1hr Current Outpatient Medications: famotidine (PEPCID) 20 mg tablet Take 1 tablet by mouth twice daily. ursodiol (CHELA 250) 250 mg tablet Take 1 tablet by mouth three times daily. diphenhydrAMINE (BENADRYL) 25 mg capsule budesonide-formotero l (SYMBICORT) 80-4.5 mcg/actuation inhaler Inhale as instructed. cetirizine (ZYRTEC) 10 mg tablet Take 10 mg by mouth. montelukast (SINGULAIR) 10 mg tablet Take 10 mg by mouth. multivitamin (MULTIPLE VITAMINS ORAL) Take by mouth. PARoxetine (PAXIL) 10 mg tablet Take 10 mg by mouth. Meloxicam AND Irritant Cntr #2 15 mg kit amLODIPine (NORVASC) 10 mg tablet Take 10 mg by mouth once daily. No current facility-administere d medications for this visit. REVIEW OF SYSTEMS: denies nausea, vomiting, dumping syndrome OBESITY MEDICINE COMORBIDITIES: Obstructive Sleep Apnea Sleep Apnea with use of CPAP, Bi-PAP, or similar technology PHYSICAL EXAM: HEAD: normal exam, neck supple, from, thyroid symmetric, normal size. HEART: Negative. RRR, no murmurs RESPIRATORY: CTA bilaterally ABDOMEN: No abdominal wound issues LOWER EXTREMITIES: normal exam Assessment A/P: Normal post-OP course Patient Active Problem List S/P gastric bypass Obesity, Class III, BMI >= 40 Acute postoperative pain Preoperative examination Morbid obesity (HCC) RANDEE (obstructive sleep apnea) Essential hypertension DISPOSITION: Return 3 month to [facility] visit EDUCATION: Pt encouraged to continue with positive lifestyle changes and daily/vitamin intake REFERRALS: N/A LABS: Today: none In 3 months: CBC, CMP if fatigue/vomiting Alex Martinez MD STAFF NOTE I have seen and evaluated the patient and discussed the case with the resident physician. I agree with the assessment and plan as documented in the resident?s note. Doing well Heath Echols MD Referring Provider: HEATH ECHOLS [[id number]] Allergies As of Date: 09/08/2018 (No Known Allergies) Date Reviewed: 09/08/2018 Reviewed by: Heath Echols - Fully Assessed Primary Visit Diagnosis:S/P gastric bypass [Z98.84] Prescriptions as of 09/08/2018 Sig: FAMOTIDINE 20 MG TABLET Take 1 tablet by mouth twice * URSODIOL 250 MG TABLET Take 1 tablet by mouth three * DIPHENHYDRAMINE 25 MG CAPSULE BUDESONIDE-FORMOTERO L HFA 80 * Inhale as instructed. CETIRIZINE 10 MG TABLET Take 10 mg by mouth. MONTELUKAST 10 MG TABLET Take 10 mg by mouth. MULTIPLE VITAMINS ORAL Take by mouth. PAROXETINE 10 MG TABLET Take 10 mg by mouth. MELOXICAM 15 MG TABLET-IRRITA* AMLODIPINE 10 MG TABLET Take 10 mg by mouth once danika* Problem List As Of Date 09/08/2018 Noted Resolved RANDEE (obstructive sleep apnea) [G47.33] INVALID FOR* Essential hypertension [I10] INVALID FOR* Morbid obesity (HCC) [E66.01] INVALID FOR* Preoperative examination [Z01.818] INVALID FOR* More... Acute postoperative pain [G89.18] INVALID FOR* Obesity, Class III, BMI >= 40 [E66.01] INVALID FOR* S/P gastric bypass [Z98.84] INVALID FOR* Encounter Status:Closed by HEATH ECHOLS MD on 09/08/18 [facility] HISTORY PHYSICALon 9 HISTORY PHYSICAL HNO ID: [id number] Author: Clarke Rivera) LOKI Barraza Service: ? Author Type: Registered Dietitian Type: HANDP Filed: 09/17/2018 10:22 AM Note Text: AMBULATORY PATIENT EDUCATION NOTE-Shared Nutrition Group TOPIC: LIFE STYLE CHANGES: Post-op weight loss surgery (RYGB): Diet and Exercise READINESS TO LEARN COGNITIVE ABILITY: Alert and oriented MOTIVATION TO LEARN: Eager FAMILY SUPPORT: Unable to assess - Family not present INSTRUCTION PROVIDED TO: Patient PATIENT LEARNS BEST BY: Multiple Methods FACTORS AFFECTING LEARNING: None PHYSICAL LIMITATIONS AFFECTING LEARNING: None LEARNING RESPONSE DIAGNOSIS: Overweight Obesity, related to; decreased energy needs, as evidenced by BMI above normative standard for age and gender Malnutrition Screening Significant unintentional weight loss? No Eating less than 75% of usual intake for more than 2 weeks? No Nutritional status: No Malnutrition Identified METHOD OF INSTRUCTION: Individual instruction Group class instruction PATIENT / FAMILY RESPONSE: Nutrition outcome statement: Expect attention to diet to assist with weight management and minimum 1200 calories/2 liters of fluids per day. Patient participated in a post-op shared nutrition group. Post-op weight loss surgery (RYGB) 1 month. Patient has lost 71.9 lbs since initial assessment accounting for 33% loss excess body weight. Tolerating stage 3 diet without difficulty. Protein needs estimated at 73-91 g protein per day (1.2 - 1.5 g/kg IBW). Current intake meeting ~ 100% protein needs (kyrgyz yogurt, tuna, salmon, cottage cheese, fair life milk). Fluid consumption adequate Patient is taking all recommended vitamin/minerals. Exercise is adequate (bike, weights). Reviewed nutrition principles of: 1. Chew food 20-30 times per bite, making meals last 30 minutes and stop drinking within 30 minutes before a meal, during meals and 30 minutes after meals 2. Vitamin/minerals: Take daily multivitamin with 200 % daily value for all vitamin/minerals plus VIt D3 3,000 IU, Vit B12 500 mcg, Iron 45 mg and calcium citrate 2993-3804 mg/day . It is okay to use combination vitamin/minerals to reduce pill volume. Page 43 of Your Guide to Surgery - OK to use Bariatric Multivitamin: [employer], Celebrate, Bariatric Fusion, Bariatric Advantage 3. Eating protein first at every meal with a goal of 73-91 grams per day 4. 64oz of calorie-free, caffeine-free, no carbonation, no alcohol containing beverages 5. Physical activity-continue Cardio 150-250 minutes/week and strength/resistance training 2x per week for 10-20 minutes/session Patient is to follow-up: 2 months to access adherence to goals Electronically Signed By: Clarke Barraza RD In Department: Nutrition Therapy [facility] PROGRESSon 09-08-2018 PROGRESS HNO ID: [id number] Author: Shahla Mann Service: ? Author Type: ? Type: Progress Notes Filed: 09/10/2018 3:31 PM Note Text: 1 Month Post OP Visit STUDY TITLE: Mechanisms that Predict Weight Trajectory after Bariatric Surgery: The Interactive Roles of Behavior and Biology IRB NO.: [id number] SPRAY APPLICATOR: Charlene Wooten, PhD COORDINATOR/Research Nurse/Chalk Extruding Machine Operator: Shahla Rodriguez Pager: [phone] Patient here for 1 month follow up visit per protocol. The following procedures will be performed at 1 Month Post OP visit: Anthropometric Measures and Vitals Height: Done Weight: Done BP: Done Pulse: Done Body mass index is 46.45 kg/m?. Confirm Liquid Diet start date as: 07/25/2018 Medication and Health Hx: Above medications reviewed with patient and are correct as listed. Adverse Events: Patient reports no adverse events [facility] Reminder: Issued Structured Clinical Interview for DSM-5 (SCID-5): Scheduled for Saturday, September 15, 2018 from 5:30 PM - 7:30 PM w/Kati (177) [facility] Toolkit: Completed Stool Specimen Collected: Done (patient returned with/ brought specimen on 09/07/2018 , she documented it as being collected at 10:45 am ) I placed specimen in cooler and delivered it to the freezer in the [facility] pending shipping. Questionnaires completed per protocol. [facility] Assessment completed Username and password given for login to [facility] to complete dietary journal starting 09/08/2018 though 09/10/2018. Actigraph issued # [id number], to be worn 24/ (except when in water) for 7 days starting 09/08/2018 through 09/15/2018 and returned in UPS pre-paid stamped envelope tracking number [id number] [phone] provided. Patient to call and schedule next appointment in 5 months. Gift Card#: [id number] [phone] Shahla Rodriguez MBA Research Coordinator [facility] PROGRESS HNO ID: [id number] Author: Heath Echols Service: ? Author Type: Physician Type: Progress Notes Filed: 09/08/2018 9:46 AM Note Text: Name: Viviane Teresa Index Surgery Date of Surgery: 08/05/2018 Surgeon: Heath Echols MD Surgical Procedure: LAPAROSCOPIC GASTRIC RESTRICTIVE SURG W/ BYPASS AND PARKER-EN-Y Pre-surgical weight: 139.7 kg (308 lb) Override Index Surgery Information? No Other Bariatric Surgeries None Visit: 4 weeks Today's Visit: Wt 125.6 kg (277 lb) BMI 46.1 kg/m2 BMI 46.10 kg/(m2) Last Visit: Wt: 133.4 kg (294 lb) BMI: 48.92 kg/(m2) Total weight loss: 14.1 kg (31 lb) Gatzke weight: 67.5 kg (148 lb 13.8 oz) Excess weight: 72.2 kg (159 lb 2.2 oz) % of excess body weight lost: 14.1 kg (31 lb) (19.48% of excess weight loss) COMPLICATIONS SINCE LAST VISIT?: NONE DIET INTAKE: compliant with Phase 4 diet DAILY SUPPLEMENTS: Calcium: Calcium Citrate w/ vitamin D (1200 - 1500mg) Multivitamin AND Minerals: 3 times daily Iron Supplement: 30-60mcg daily Vitamin B12: 2500mcg Vitamin D3: included in multi-vitamin Other: Actigall 300 mg twice daily EXERCISE: daily cardio ~1hr Current Outpatient Medications: famotidine (PEPCID) 20 mg tablet Take 1 tablet by mouth twice daily. ursodiol (CHELA 250) 250 mg tablet Take 1 tablet by mouth three times daily. diphenhydrAMINE (BENADRYL) 25 mg capsule budesonide-formotero l (SYMBICORT) 80-4.5 mcg/actuation inhaler Inhale as instructed. cetirizine (ZYRTEC) 10 mg tablet Take 10 mg by mouth. montelukast (SINGULAIR) 10 mg tablet Take 10 mg by mouth. multivitamin (MULTIPLE VITAMINS ORAL) Take by mouth. PARoxetine (PAXIL) 10 mg tablet Take 10 mg by mouth. Meloxicam AND Irritant Cntr #2 15 mg kit amLODIPine (NORVASC) 10 mg tablet Take 10 mg by mouth once daily. No current facility-administere d medications for this visit. REVIEW OF SYSTEMS: denies nausea, vomiting, dumping syndrome OBESITY MEDICINE COMORBIDITIES: Obstructive Sleep Apnea Sleep Apnea with use of CPAP, Bi-PAP, or similar technology PHYSICAL EXAM: HEAD: normal exam, neck supple, from, thyroid symmetric, normal size. HEART: Negative. RRR, no murmurs RESPIRATORY: CTA bilaterally ABDOMEN: No abdominal wound issues LOWER EXTREMITIES: normal exam Assessment A/P: Normal post-OP course Patient Active Problem List S/P gastric bypass Obesity, Class III, BMI >= 40 Acute postoperative pain Preoperative examination Morbid obesity (HCC) RANDEE (obstructive sleep apnea) Essential hypertension DISPOSITION: Return 3 month to [facility] visit EDUCATION: Pt encouraged to continue with positive lifestyle changes and daily/vitamin intake REFERRALS: N/A LABS: Today: none In 3 months: CBC, CMP if fatigue/vomiting Alex Martinez MD STAFF NOTE I have seen and evaluated the patient and discussed the case with the resident physician. I agree with the assessment and plan as documented in the resident?s note. Doing well Heath Echols MD [facility] CNOVon 08-13-2018 CNOV Office Visit (GENBMI) VIVIANE TERESA ([id number]) 1980 F Date Time Provider Department 08/13/18 1:15 PM HEATH ECHOLS During your visit today, we recorded the following information about you: Temperature Pulse Blood pressure Weight 98 degrees 70/minute 136/74 133.4 kg Height 1.651 m Ellen Adames Ma 08/13/2018 12:58 PM Signed Body mass index is 48.92 kg/m?. Heath Echols MD 08/13/2018 2:02 PM Signed BARIATRIC SURGERY CLINIC FOLLOW UP NOTE Clinic Date: 08/13/2018 Viviane Teresa, 37 year old [address] [place] [address] [place] [address] Index Surgery Date of Surgery: 08/05/2018 Surgeon Attending: Heath Echols MD Surgical Procedure: LAPAROSCOPIC GASTRIC RESTRICTIVE SURG W/ BYPASS AND PARKER-EN-Y Pre-surgical weight: 139.7 kg (308 lb) Override Index Surgery Information? No Other Bariatric Surgeries None Time Since Surgery: 8 days Extra Procedures: None COMPLICATIONS DURING ADMISSION: None Operative Complications: No Complications Prior to Discharge: No COMPLICATIONS SINCE DISCHARGE?: NONE Estimated body mass index is 48.92 kg/m? as calculated from the following: Height as of this encounter: 165.1 cm (5' 5 ). Weight as of this encounter: 133.4 kg (294 lb). Gatzke weight: 67.5 kg (148 lb 13.8 oz) Excess weight: 72.2 kg (159 lb 2.2 oz) % of excess body weight lost: 6.35 kg (14 lb) (8.80% of excess weight loss) HISTORY: Fever/Chills, Abdominal Pain: Denies Back Pain: Denies Increased Heart Rate: Denies Bloating / Hiccups: Denies Shortness of Breath: Denies Cough / Wheezing: Denies Calf/Thigh pain or swelling: Denies Decreased Urine Output: Denies Nausea/Vomiting: Denies Diarrhea: Denies Current Diet: Phase II (Full Liquids) Daily approximate Fluid intake: 64 fl oz per 24hrs Present Activity level: Household activities Have you attended any Support Group? No attendance Current Medications: Current Outpatient Medications: famotidine (PEPCID) 20 mg tablet Take 1 tablet by mouth twice daily. ursodiol (CHELA 250) 250 mg tablet Take 1 tablet by mouth three times daily. ondansetron orally disintegrating (ZOFRAN ODT) 4 mg disintegrating tablet Take 1 tablet by mouth every 8 hours as needed for Nausea/Vomiting. diphenhydrAMINE (BENADRYL) 25 mg capsule budesonide-formotero l (SYMBICORT) 80-4.5 mcg/actuation inhaler Inhale as instructed. cetirizine (ZYRTEC) 10 mg tablet Take 10 mg by mouth. montelukast (SINGULAIR) 10 mg tablet Take 10 mg by mouth. multivitamin (MULTIPLE VITAMINS ORAL) Take by mouth. PARoxetine (PAXIL) 10 mg tablet Take 10 mg by mouth. Meloxicam AND Irritant Cntr #2 15 mg kit amLODIPine (NORVASC) 10 mg tablet Take 10 mg by mouth once daily. No current facility-administere d medications for this visit. Discontinued Medications: There are no discontinued medications. Medications with dosage changes this visit: Told to start MV, pepcid and actigal REVIEW OF SYSTEMS: CONSTITUTIONAL: Patient denies fevers, chills, sweats and weight changes. EYES: Patient denies any visual symptoms. EARS, NOSE, AND THROAT: No difficulties with hearing. No symptoms of rhinitis or sore throat. CARDIOVASCULAR: Patient denies chest pains, palpitations, orthopnea and paroxysmal nocturnal dyspnea. RESPIRATORY: No dyspnea on exertion, no wheezing or cough. GI: No nausea, vomiting, diarrhea, constipation, abdominal pain, hematochezia or melena. : No urinary hesitancy or dribbling. No nocturia or urinary frequency. No abnormal urethral discharge. MUSCULOSKELETAL: No myalgias or arthralgias. NEUROLOGIC: No chronic headaches, no seizures. Patient denies numbness, tingling or weakness. PSYCHIATRIC: Patient denies problems with mood disturbance. No problems with anxiety. ENDOCRINE: No excessive urination or excessive thirst. DERMATOLOGIC: Patient denies any rashes or skin changes. PHYSICAL EXAM: PHYSICAL EXAMINATION:BP 136/74 (BP Site: Right Arm, BP Position: Sitting, BP Cuff Size: Large Adult) Pulse 70 Temp 36.7 ?C (98 ?F) (Left Tympanic) Ht 165.1 cm (5' 5 ) Wt 133.4 kg (294 lb) BMI 48.92 kg/m? GENERAL: No apparent distress. Pt is alert and oriented x3. VITAL SIGNS: HR, BP, Temp; Normal HEENT: Head is normocephalic and atraumatic. Extraocular muscles are intact. Pupils are equal, round, and reactive to light and accommodation. Nares appeared normal. Mouth is well hydrated and without lesions. Mucous membranes are moist. Posterior pharynx clear of any exudate or lesions. NECK: Supple. No carotid bruits. No lymphadenopathy or thyromegaly. LUNGS: Clear to auscultation. HEART: Regular rate and rhythm without murmur. ABDOMEN: Soft, nontender, and nondistended. Positive bowel sounds. No hepatosplenomegaly was noted. EXTREMITIES: Without any cyanosis, clubbing, rash, lesions or edema. NEUROLOGIC: Cranial nerves II through XII are grossly intact. PSYCHIATRIC: Flat affect, but denies suicidal or homicidal ideations. SKIN: No ulceration or induration present. IMPRESSION: Normal post-OP course Assessment PLAN: Activity: OK to start exercise program in next 1-2 weeks. Return to work: 3 weeks Diet: Advance diet per Handbook Counseling: Vitamins, Actigall, Symptoms of stricture and Ulcer Disposition: Return 1 month to Post-op follow up/ individual office visit Labs on return: No Heath Echols MD Advanced Laparoscopic and Bariatric Surgery Referring Provider: HEATH ECHOLS [[id number]] Allergies As of Date: 08/13/2018 (No Known Allergies) Date Reviewed: 08/13/2018 Reviewed by: Heath Echols - Fully Assessed Reason for Visit: Established Patient [175] Primary Visit Diagnosis:S/P gastric bypass [Z98.84] Prescriptions as of 08/13/2018 Sig: FAMOTIDINE 20 MG TABLET Take 1 tablet by mouth twice * URSODIOL 250 MG TABLET Take 1 tablet by mouth three * ONDANSETRON 4 MG DISINTEGRATI* Take 1 tablet by mouth every * DIPHENHYDRAMINE 25 MG CAPSULE BUDESONIDE-FORMOTERO L HFA 80 * Inhale as instructed. CETIRIZINE 10 MG TABLET Take 10 mg by mouth. MONTELUKAST 10 MG TABLET Take 10 mg by mouth. MULTIPLE VITAMINS ORAL Take by mouth. PAROXETINE 10 MG TABLET Take 10 mg by mouth. MELOXICAM 15 MG TABLET-IRRITA* AMLODIPINE 10 MG TABLET Take 10 mg by mouth once danika* Problem List As Of Date 08/13/2018 Noted Resolved RANDEE (obstructive sleep apnea) [G47.33] INVALID FOR* Essential hypertension [I10] INVALID FOR* Morbid obesity (HCC) [E66.01] INVALID FOR* Preoperative examination [Z01.818] INVALID FOR* More... Acute postoperative pain [G89.18] INVALID FOR* Obesity, Class III, BMI >= 40 [E66.01] INVALID FOR* S/P gastric bypass [Z98.84] INVALID FOR* Visit Notes: >> Ellen Adames Ma SatAug 13, 2018 12:55 PM Status: Signed Body mass index is 48.92 kg/m?. Encounter Status:Closed by HEATH ECHOLS MD on 08/13/18 [facility] PROGRESSon 08-13-2018 PROGRESS HNO ID: [id number] Author: Heath Echols Service: ? Author Type: Physician Type: Progress Notes Filed: 08/13/2018 2:02 PM Note Text: BARIATRIC SURGERY CLINIC FOLLOW UP NOTE Clinic Date: 08/13/2018 Viviane Teresa, 37 year old [address] [place] [id number] Index Surgery Date of Surgery: 08/05/2018 Surgeon Attending: Heath Echols MD Surgical Procedure: LAPAROSCOPIC GASTRIC RESTRICTIVE SURG W/ BYPASS AND PARKER-EN-Y Pre-surgical weight: 139.7 kg (308 lb) Override Index Surgery Information? No Other Bariatric Surgeries None Time Since Surgery: 8 days Extra Procedures: None COMPLICATIONS DURING ADMISSION: None Operative Complications: No Complications Prior to Discharge: No COMPLICATIONS SINCE DISCHARGE?: NONE Estimated body mass index is 48.92 kg/m? as calculated from the following: Height as of this encounter: 165.1 cm (5' 5 ). Weight as of this encounter: 133.4 kg (294 lb). Gatzke weight: 67.5 kg (148 lb 13.8 oz) Excess weight: 72.2 kg (159 lb 2.2 oz) % of excess body weight lost: 6.35 kg (14 lb) (8.80% of excess weight loss) HISTORY: Fever/Chills, Abdominal Pain: Denies Back Pain: Denies Increased Heart Rate: Denies Bloating / Hiccups: Denies Shortness of Breath: Denies Cough / Wheezing: Denies Calf/Thigh pain or swelling: Denies Decreased Urine Output: Denies Nausea/Vomiting: Denies Diarrhea: Denies Current Diet: Phase II (Full Liquids) Daily approximate Fluid intake: 64 fl oz per 24hrs Present Activity level: Household activities Have you attended any Support Group? No attendance Current Medications: Current Outpatient Medications: famotidine (PEPCID) 20 mg tablet Take 1 tablet by mouth twice daily. ursodiol (CHELA 250) 250 mg tablet Take 1 tablet by mouth three times daily. ondansetron orally disintegrating (ZOFRAN ODT) 4 mg disintegrating tablet Take 1 tablet by mouth every 8 hours as needed for Nausea/Vomiting. diphenhydrAMINE (BENADRYL) 25 mg capsule budesonide-formotero l (SYMBICORT) 80-4.5 mcg/actuation inhaler Inhale as instructed. cetirizine (ZYRTEC) 10 mg tablet Take 10 mg by mouth. montelukast (SINGULAIR) 10 mg tablet Take 10 mg by mouth. multivitamin (MULTIPLE VITAMINS ORAL) Take by mouth. PARoxetine (PAXIL) 10 mg tablet Take 10 mg by mouth. Meloxicam AND Irritant Cntr #2 15 mg kit amLODIPine (NORVASC) 10 mg tablet Take 10 mg by mouth once daily. No current facility-administere d medications for this visit. Discontinued Medications: There are no discontinued medications. Medications with dosage changes this visit: Told to start MV, pepcid and actigal REVIEW OF SYSTEMS: CONSTITUTIONAL: Patient denies fevers, chills, sweats and weight changes. EYES: Patient denies any visual symptoms. EARS, NOSE, AND THROAT: No difficulties with hearing. No symptoms of rhinitis or sore throat. CARDIOVASCULAR: Patient denies chest pains, palpitations, orthopnea and paroxysmal nocturnal dyspnea. RESPIRATORY: No dyspnea on exertion, no wheezing or cough. GI: No nausea, vomiting, diarrhea, constipation, abdominal pain, hematochezia or melena. : No urinary hesitancy or dribbling. No nocturia or urinary frequency. No abnormal urethral discharge. MUSCULOSKELETAL: No myalgias or arthralgias. NEUROLOGIC: No chronic headaches, no seizures. Patient denies numbness, tingling or weakness. PSYCHIATRIC: Patient denies problems with mood disturbance. No problems with anxiety. ENDOCRINE: No excessive urination or excessive thirst. DERMATOLOGIC: Patient denies any rashes or skin changes. PHYSICAL EXAM: PHYSICAL EXAMINATION:BP 136/74 (BP Site: Right Arm, BP Position: Sitting, BP Cuff Size: Large Adult) Pulse 70 Temp 36.7 ?C (98 ?F) (Left Tympanic) Ht 165.1 cm (5' 5 ) Wt 133.4 kg (294 lb) BMI 48.92 kg/m? GENERAL: No apparent distress. Pt is alert and oriented x3. VITAL SIGNS: HR, BP, Temp; Normal HEENT: Head is normocephalic and atraumatic. Extraocular muscles are intact. Pupils are equal, round, and reactive to light and accommodation. Nares appeared normal. Mouth is well hydrated and without lesions. Mucous membranes are moist. Posterior pharynx clear of any exudate or lesions. NECK: Supple. No carotid bruits. No lymphadenopathy or thyromegaly. LUNGS: Clear to auscultation. HEART: Regular rate and rhythm without murmur. ABDOMEN: Soft, nontender, and nondistended. Positive bowel sounds. No hepatosplenomegaly was noted. EXTREMITIES: Without any cyanosis, clubbing, rash, lesions or edema. NEUROLOGIC: Cranial nerves II through XII are grossly intact. PSYCHIATRIC: Flat affect, but denies suicidal or homicidal ideations. SKIN: No ulceration or induration present. IMPRESSION: Normal post-OP course Assessment PLAN: Activity: OK to start exercise program in next 1-2 weeks. Return to work: 3 weeks Diet: Advance diet per Handbook Counseling: Vitamins, Actigall, Symptoms of stricture and Ulcer Disposition: Return 1 month to Post-op follow up/ individual office visit Labs on return: No Heath Echols MD Advanced Laparoscopic and Bariatric Surgery Normal [facility] Basic Metabolic Panlon 08-07 Anion gap [Moles/Vol] 12 mmol/L Normal 9-18 [facility] Comment on above: Performed By: #### C BCDIF, BMP, MG1, PHOS ####[facility] [address] [place], [place] [phone] Calcium [Mass/Vol] 9.2 mg/dL Normal 8.5-10.2 [facility] Comment on above: Performed By: #### C BCDIF, BMP, MG1, PHOS ####[facility] [address] [place], [place] [phone] Chloride [Moles/Vol] 102 mmol/L Normal 97-105 [facility] Comment on above: Performed By: #### C BCDIF, BMP, MG1, PHOS ####[facility], [place] [phone] CO2 [Moles/Vol] 26 mmol/L Normal 22-30 [facility] Comment on above: Performed By: #### C BCDIF, BMP, MG1, PHOS ####[place] [address] [address], [place] [phone] Creatinine [Mass/Vol] 0.64 mg/dL Normal 0.58-0.96 [facility] Comment on above: Performed By: #### C BCDIF, BMP, MG1, PHOS ####[place] [address] [address] [place] [phone] eGFR- Amer. >60 Normal [facility] Comment on above: Performed By: #### C BCDIF, BMP, MG1, PHOS ####[place] [address] [address] [place] [phone] GFR/1.73 sq M predicted among non-blacks MDRD (S/P/Bld) [Vol rate/Area] mL/min/{1.73_m2} Normal [facility] Comment on above: Result Comment: eGFR (Estimated GFR) Units of measure: mL/min/1.73 meters squared eGFR is derived from the reexpressed MDRD Study equation using the following parameters: serum creatinine, age, gender and race. The creatinine assay has been calibrated to be traceable to IDMS. An eGFR <60 mL/min/1.73m2 for >3 months is consistent with chronic kidney disease. Refer to KDOQI guidelines for clinical interpretation. In patients with unstable renal function, e.g. those with acute kidney injury, the eGFR may not accurately reflect actual GFR. Performed By: #### C BCDIF, BMP, MG1, PHOS ####[place] [address] [address], [place] [phone] Glucose [Mass/Vol] 91 mg/dL Normal 74-99 [facility] Comment on above: Result Comment: The [place] [employer] Association (ADA) provides guidance for cutoff values for fasting glucose and random glucose. The ADA defines fasting as no caloric intake for at least 8 hours. Fasting plasma glucose results between 100 to 125 mg/dL indicate increased risk for diabetes (prediabetes). Fasting plasma glucose results greater than or equal to 126 mg/dL meet the criteria for diagnosis of diabetes. In the absence of unequivocal hyperglycemia, results should be confirmed by repeat testing. In a patient with classic symptoms of hyperglycemia or hyperglycemic crisis, random plasma glucose results greater than or equal to 200 mg/dL meet the criteria for diagnosis of diabetes. Reference: Standards of Medical Care in Diabetes 2016, [place] [employer]. Diabetes Care. 2016.39(Suppl 1). Performed By: #### C BCDIF, BMP, MG1, PHOS ####[facility] [address], [place] [phone] Potassium [Moles/Vol] 3.6 mmol/L Low 3.7-5.1 [facility] Comment on above: Performed By: #### C BCDIF, BMP, MG1, PHOS ####[facility] [address], [place] [phone] Sodium [Moles/Vol] 140 mmol/L Normal 136-144 [facility] Comment on above: Performed By: #### C BCDIF, BMP, MG1, PHOS ####[facility] [address], [place] [phone] Urea nitrogen [Mass/Vol] 4 mg/dL Low 7-21 [facility] Comment on above: Performed By: #### C BCDIF, BMP, MG1, PHOS ####[facility] [address], [place] [phone] CASE MANAGEMon 08-07-2018 CASE MANAGEM HNO ID: [id number] Author: Analia (Rn) BESSIE Malik Service: Care Management Author Type: Registered Nurse Type: Care Mgt Progress Note Filed: 08/07/2018 12:30 PM Note Text: CARE MANAGEMENT DISCHARGE NOTE SERVICE DATE: 08/07/2018 SERVICE TIME: 12:27 PM LOS: 2 days Admission Date: 08/05/2018 DISCHARGE ARRANGEMENT (list agency and phone number) Home Provider: MAGALY ASSESSMENT: Caregiver is ready, willing and able to meet the patient's needs as recommended by the inter-professional team? No Caregiver Needed Patient's transition needs and plan for meeting these needs: No skilled needs Does the patient have an acute stroke diagnosis, or has the patient had a stroke during this admission? No HANDOFF COMMUNICATION: Lyudmila Romeo [phone] via SOC TRANSPORTATION ARRANGEMENTS: Car Spouse to transport ADDITIONAL CONTACT RESOURCES: Needs Prior to Discharge: Ready for Discharge Patient medically cleared for discharged today. Patient discharged to home. Patient has no skilled needs. Patient is IPTA and has good family support. Spouse to transport. SIGNATURE: Analia Malik RN PATIENT NAME: Viviane Teresa DATE: August 07, 2018 TIME: 12:26 PM PAGER/CONTACT #: [phone] Normal [facility] CBC and Differentialon 08-07 Abs Baso 0.05 k/uL Normal <0.11 [facility] Comment on above: Performed By: #### C BCDIF, BMP, MG1, PHOS ####[facility] [address], [place] [phone] Abs Tama 0.87 k/uL High <0.87 [facility] Comment on above: Performed By: #### C BCDIF, BMP, MG1, PHOS ####[facility] [address]CM[address], [place] [phone] Abs Neut 5.94 k/uL Normal 1.45-7.50 [facility] Comment on above: Performed By: #### C BCDIF, BMP, MG1, PHOS ####[facility] [address]ClevelL[address], [place] [phone] Absolute nRBC 0.01 k/uL High <0.01 [facility] Comment on above: Performed By: #### C BCDIF, BMP, MG1, PHOS ####[facility] [address]CM[address], [place] [phone] Basophils/100 WBC (Bld) 0.5 % Normal [facility] Comment on above: Performed By: #### C BCDIF, BMP, MG1, PHOS ####[place] [address] [address] [place] [phone] DTYPE Auto Diff Normal [facility] Comment on above: Performed By: #### C BCDIF, BMP, MG1, PHOS ####[place] [address] [address] [phone] Eosinophils (Bld) [#/Vol] 0.04 10*3/uL Normal <0.46 [facility] Comment on above: Performed By: #### C BCDIF, BMP, MG1, PHOS ####[place] [address] [address] [place] [phone] Eosinophils/100 WBC (Bld) 0.4 % Normal [facility] Comment on above: Performed By: #### C BCDIF, BMP, MG1, PHOS ####[place] [address] [place] [phone] Erythrocyte distribution width (RBC) [Ratio] 13.2 % Normal 11.5-15.0 [facility] Comment on above: Performed By: #### C BCDIF, BMP, MG1, PHOS ####[place] [address] [phone] Hematocrit (Bld) [Volume fraction] 41.4 % Normal 36.0-46.0 [facility] Comment on above: Performed By: #### C BCDIF, BMP, MG1, PHOS ####[place] [address] [phone] Hemoglobin (Bld) [Mass/Vol] 13.6 g/dL Normal 11.5-15.5 [facility] Comment on above: Performed By: #### C BCDIF, BMP, MG1, PHOS ####[place] [address] [phone] Lymphocytes (Bld) [#/Vol] 3.52 10*3/uL Normal 1.00-4.00 [facility] Comment on above: Performed By: #### C BCDIF, BMP, MG1, PHOS ####[place] [address]CM[address], [place] [phone] Lymphocytes/100 WBC (Bld) 33.8 % Normal [facility] Comment on above: Performed By: #### C BCDIF, BMP, MG1, PHOS ####[place] [address], [place] [phone] MCH (RBC) [Entitic mass] 29.9 pG Normal 26.0-34.0 [facility] Comment on above: Performed By: #### C BCDIF, BMP, MG1, PHOS ####[place] [address], [place] [phone] MCHC (RBC) [Mass/Vol] 32.9 g/dL Normal 30.5-36.0 [facility] Comment on above: Performed By: #### C BCDIF, BMP, MG1, PHOS ####[place] [address], [place] [phone] MCV (RBC) [Entitic vol] 91.0 fL Normal 80.0-100.0 [facility] Comment on above: Performed By: #### C BCDIF, BMP, MG1, PHOS ####[facility]CM[address], [place] [phone] Monocytes/100 WBC (Bld) 8.3 % Normal [facility] Comment on above: Performed By: #### C BCDIF, BMP, MG1, PHOS ####[place] [address], [place] [phone] Neutrophils/100 WBC (Bld) 57.0 % Normal [facility] Comment on above: Performed By: #### C BCDIF, BMP, MG1, PHOS ####[place] [address]CM[address], [place] [phone] NRBCs 0.1 /100 WBC High 0 [facility] Comment on above: Performed By: #### C BCDIF, BMP, MG1, PHOS ####[place] [address], [place] [phone] Platelet mean volume (Bld) [Entitic vol] 10.6 fL Normal 9.0-12.7 [facility] Comment on above: Performed By: #### C BCDIF, BMP, MG1, PHOS ####[place] [address], [place] [phone] Platelets (Bld) [#/Vol] 223 10*3/uL Normal 150-400 [facility] Comment on above: Performed By: #### C BCDIF, BMP, MG1, PHOS ####[place] [address], [place] [phone] RBC (Bld) [#/Vol] 4.55 10*6/uL Normal 3.90-5.20 [facility] Comment on above: Performed By: #### C BCDIF, BMP, MG1, PHOS ####[address], [place] [phone] WBC (Bld) [#/Vol] 10.42 10*3/uL Normal 3.70-11.00 [facility] Comment on above: Performed By: #### C BCDIF, BMP, MG1, PHOS ####[place] [address], [place] [phone] Magnesiumon 08-07-2018 Magnesium [Mass/Vol] 1.9 mg/dL Normal 1.7-2.3 [facility] Comment on above: Performed By: #### C BCDIF, BMP, MG1, PHOS ####[place] [address] [place], [place] [phone] OPERATIVE NOon 08-07-2018 OPERATIVE NO HNO ID: [id number] Author: Heath Echols Service: ? Author Type: Physician Type: Operative Report Filed: 08/11/2018 6:04 PM Note Text: OPERATIVE/PROCEDURE REPORT LOG ID: [id number] Surgery/Procedure Date: 08/05/2018 Incision/Procedure Start Time: 11:58 AM Incision Close/Procedure End Time: 3:11 PM Surgeon(s)/Procedura list(s) and Shift Boss(s): Surgeon(s) and Role: * Heath Echols - Primary * Dallin (Res) Filemon - Resident - Assisting * Eva (Res) Buster - Resident - Assisting Procedure(s): 1. Laparoscopic Parker-en-Y gastric bypass (120-cm antecolic antegastric Parker limb, and 100-cm biliopancreatic limb). 2. Esophagogastroscopy. Pre-Op/Pre-Procedure Diagnosis: 1. Morbid obesity (body mass index equals 55 kg per meter square). 2. Weight related comorbidities including HTN, RANDEE, NAFLD Post-Op/Post-Procedu re Diagnosis: - Morbid Obesity - Hepatomegaly Anesthesia: General Operative Indication: Viviane Teresa is a 37 year old woman with clinically severe obesity and weight related comorbidities as listed. The patient underwent evaluation by our multidisciplinary team and was considered a good candidate for laparoscopic gastric bypass. We discussed the risks, benefits, alternatives, and potential complications and the patient agreed to proceed. Operative Findings: 1. Upon completion, there was a 15 mL gastric pouch, hand-sewn end-to-side gastrojejunostomy, 120-cm antecolic-antegastri c Aprker limb, stapled functional end-to-side enteroenterostomy. 2. Endoscopy with insufflation revealed no leaks. Procedure Details: The patient was taken to the operating room and placed in supine position. A sign in huddle was performed by the surgical and anesthesia teams. Following induction of general anesthesia and endotracheal intubation, the patient was prepped and draped in the usual sterile fashion. A left subcostal incision was made and Veress needle was inserted. The abdomen was insufflated with carbon dioxide to a pressure of 15 mmHg. A 5-mm port laparoscope was inserted. Under direct vision, a 5-mm left paramedian port, 12-mm right upper quadrant port, two 5-mm right subcostal port, and additional 5-mm left subcostal port were placed. The omentum was advanced toward the upper abdomen to expose the ligament of Treitz. The jejunum was divided 100 cm from the ligament of Treitz with a saez load stapler. The mesentery was divided with harmonic scalpel. The Parker limb was then measured 120 cm distally, and was approximated to the BP limb with 2-0 Surgidac. Enterotomies were made in each bowel limb and the stapler was inserted, applied, and a stapled end-to-side enteroenterostomy was constructed. The common enterotomy site was closed with a saez load. The mesenteric defect was closed with running 2-0 Surgidac suture. The Parker limb was then advanced antecolic. The omentum was divided in the middle to reduce tension using the ultrasonic dissector. We divided the gastrohepatic ligament below left gastric artery pedicle and saved the artery. We applied the purple load stapler in multiple times across the stomach to create an approximately 15 mL gastric pouch. Staple lines were examined on both sides and found to be intact. The stapler line on upper part of pouch was suture reinforced with 2-0 Surgidac. The end of the Parker limb was sutured to the posterior wall of the gastric pouch with running 2- 0 Surgidac. Enterotomies were made in the pouch and the Parker limb with the ultrasonic dissector. A hand-sewn 2 layer end-to-side anastomosis was performed using running 2-0 Polysorb suture. Prior to closing the inner layer anteriorly, the scope was passed through the pouch into the Parker limb to ensure stoma size. A second anterior layer of 2-0 Polysorb was applied to complete the 2-layer anastomosis. Endoscopy with insufflation revealed no leaks, bleeding, or obstruction. The scope was withdrawn. An omental patch was placed over the anastomosis and secured with 2-0 Surgidac. We closed the Leslie defect with running 2-0 Surgidac suture. We closed the fascia of large port with #0 Vicryl using suture passer. Final inspection revealed no bleeding or injury. All instruments and trocars were removed. The abdomen was deflated. Skin incisions were closed with 4-0 Vicryl subcuticular. Sterile dressings were applied. Procedure was tolerated well. The patient went to recovery in good condition. Estimated Blood Loss: 25 mls Specimens: None Implantable Devices: None Drains: None Complications: None On the date of the operation, I was present and scrubbed for the entire operation. SIGNATURE: Heath Echols MD PATIENT NAME: Viviane Teresa DATE: August 11, 2018 TIME: 6:03 PM PAGER/CONTACT #: [phone] Normal [facility] PROGRESSon 08-07-2018 PROGRESS HNO ID: [id number] Author: Eva (Alvaro) Buster Service: General Surgery Author Type: Resident Type: Progress Notes Filed: 08/07/2018 6:55 AM Note Text: SURGERY INPATIENT PROGRESS NOTE ASSESSMENT AND PLAN Viviane Teresa is a 37 year old female, POD#2 s/p LRYGB. Expected post-op course thus far. -Pain Control:Tylenol, oxycodone, dilaudid -FEN/GI: Phase II, replete lytes -encourage IS, OOBA -DVT ppx: Lovenox, IPCs -Lines/Drains: No burns -Dispo: RNF, discharge home today Will discuss with staff/senior resident Eva Goins MD August 07, 2018 General Surgery PGY1 P# [id number] 6pm to 6 am, and on weekends, please page general surgery on-call SUBJECTIVE/INTERVAL EVENTS No acute events. Pain adequately controlled. Tolerating diet. No n/v. -BM OBJECTIVE BP 122/74 Pulse 83 Temp 36.4 ?C (97.5 ?F) (Oral) Resp 18 Ht 165.1 cm (5' 5 ) Wt (!) 137.7 kg (303 lb 9.2 oz) SpO2 95% BMI 50.52 kg/m? Intake/Output Summary (Last 24 hours) at 08/06/18 0659 Last data filed at 08/06/18 0637 Gross per 24 hour Intake 3733 ml Output 1375 ml Net 2358 ml General: NAD, resting in bed CV: RRR, extremities wwp Pulm: nonlabored breathing, symmetrical rise, no stridor Abdomen: Soft, non tender, non distended, incision c/d/i Neuro: moves all 4 extremities, no focal deficits Labs/Imaging: CBC, BMP, MG, PHOS Recent Labs 08/07/18 0440 08/06/18 0648 07/30/18 1058 02/18/18 1117 WBC 10.42 15.69* 13.32* 11.34* HB 13.6 14.6 15.6* 14.5 HCT 41.4 43.9 45.7 44.0 PLT 223 291 327 276 NA 140 138 140 141 K 3.6* 3.5* 3.9 4.0 CHLOR 102 101 97 102 CO2 26 24 24 28 BUN 4* 5* 13 12 CREAT 0.64 0.67 0.74 0.69 GLUC 91 114* 93 103* CA 9.2 9.3 9.9 9.2 MG 1.9 1.8 -- -- P 1.8* 1.7* -- -- Liver Function, Amylase, AND Lipase Recent Labs 07/30/18 1058 02/18/18 1117 TPROT 8.0 7.1 ALB 4.6 4.2 ALT 19 19 AST 20 17 ALKPHOS 72 70 TBILI 0.3 0.2 Coags No results for input(s): APTT, INR in the last 26749 hours. Invalid input(s): PT Normal [facility] Phosphoruson 08-07-2018 Phosphate [Mass/Vol] 1.8 mg/dL Low 2.7-4.8 [facility] Comment on above: Performed By: #### C BCDIF, BMP, MG1, PHOS ####[facility] [place], [place] [phone] Basic Metabolic Panlon 08-06 Anion gap [Moles/Vol] 13 mmol/L Normal 9-18 [facility] Comment on above: Performed By: #### C BCDIF, BMP, MG1, PHOS ####[facility] [place], [place] [phone] Calcium [Mass/Vol] 9.3 mg/dL Normal 8.5-10.2 [facility] Comment on above: Performed By: #### C BCDIF, BMP, MG1, PHOS ####[place] [address] [place], [place] [phone] Chloride [Moles/Vol] 101 mmol/L Normal 97-105 [facility] Comment on above: Performed By: #### C BCDIF, BMP, MG1, PHOS ####[place] [address] [place], [place] [phone] CO2 [Moles/Vol] 24 mmol/L Normal 22-30 [facility] Comment on above: Performed By: #### C BCDIF, BMP, MG1, PHOS ####[place] [phone] Creatinine [Mass/Vol] 0.67 mg/dL Normal 0.58-0.96 [facility] Comment on above: Performed By: #### C BCDIF, BMP, MG1, PHOS ####[address] [place], [place] [phone] eGFR- Amer. >60 Normal [facility] Comment on above: Performed By: #### C BCDIF, BMP, MG1, PHOS ####[address] [phone] GFR/1.73 sq M predicted among non-blacks MDRD (S/P/Bld) [Vol rate/Area] mL/min/{1.73_m2} Normal [facility] Comment on above: Result Comment: eGFR (Estimated GFR) Units of measure: mL/min/1.73 meters squared eGFR is derived from the reexpressed MDRD Study equation using the following parameters: serum creatinine, age, gender and race. The creatinine assay has been calibrated to be traceable to IDMS. An eGFR <60 mL/min/1.73m2 for >3 months is consistent with chronic kidney disease. Refer to KDOQI guidelines for clinical interpretation. In patients with unstable renal function, e.g. those with acute kidney injury, the eGFR may not accurately reflect actual GFR. Performed By: #### C BCDIF, BMP, MG1, PHOS ####[place] [address], [place] [phone] Glucose [Mass/Vol] 114 mg/dL High 74-99 [facility] Comment on above: Result Comment: The [place] Diabetes Association (ADA) provides guidance for cutoff values for fasting glucose and random glucose. The ADA defines fasting as no caloric intake for at least 8 hours. Fasting plasma glucose results between 100 to 125 mg/dL indicate increased risk for diabetes (prediabetes). Fasting plasma glucose results greater than or equal to 126 mg/dL meet the criteria for diagnosis of diabetes. In the absence of unequivocal hyperglycemia, results should be confirmed by repeat testing. In a patient with classic symptoms of hyperglycemia or hyperglycemic crisis, random plasma glucose results greater than or equal to 200 mg/dL meet the criteria for diagnosis of diabetes. Reference: Standards of Medical Care in Diabetes 2016, [place] [employer] Association. Diabetes Care. 2016.39(Suppl 1). Performed By: #### C BCDIF, BMP, MG1, PHOS ####[facility] [place], [place] [phone] Potassium [Moles/Vol] 3.5 mmol/L Low 3.7-5.1 [facility] Comment on above: Performed By: #### C BCDIF, BMP, MG1, PHOS ####[facility] [place], [place] [phone] Sodium [Moles/Vol] 138 mmol/L Normal 136-144 [facility] Comment on above: Performed By: #### C BCDIF, BMP, MG1, PHOS ####[facility] [address], [place] [phone] Urea nitrogen [Mass/Vol] 5 mg/dL Low 7-21 [facility] Comment on above: Performed By: #### C BCDIF, BMP, MG1, PHOS ####[facility] [place], [place] [phone] CASE MGT INIT MARYon 2018 CASE MGT INIT ASSES HNO ID: [id number] Author: Analia (Rn) BESSIE Malik Service: Care Management Author Type: Registered Nurse Type: Care Mgt Initial Assessment Filed: 08/06/2018 11:37 AM Note Text: CARE MANAGEMENT: ASSESSMENT AND DISCHARGE PLAN SERVICE DATE: 08/06/2018 SERVICE TIME: 11:00 AM PRIMARY CARE PHYSICIAN: Lyudmila Romeo DO ADMISSION STATUS: Inpatient Needs Prior to Discharge: Discharge Prescriptions;Patien t/Family;Pharmacy Bedside Delivery MEDICAL: Patient/Representati ve Stated Goals: To improve my functional status Health Insurance: Inst[employer] Values PLAN PREFERRED HEALTH CHOICE PLUS None Health Issues Impacting Discharge Plan: RANDEE, Asthma, HTN, Obesity Last Admission Date: none Is this Within the Past 30 days? No Advance Directive: Current Advance Directive: Health Care Power of Machine Paint Mixer (POA: Obinna Teresa (SPO), Cece Razo (MTH), Sofy Razo (SIS)) In Chart: Yes Up To Date and Valid: Yes Health Literacy: 1. How often do you need to have someone help you when you read instructions, pamphlets, or other written material from your doctor or pharmacy? Never - 1 2. How confident are you filling out medical forms by yourself? Extremely - 1 If Patient scores > 3 on either question, the following interventions were put into place: Use of plain language and active listening with Patient and family, Sit with Patient, Gave Patient the opportunity to ask questions and Patient did not score > 3 FUNCTIONAL AND COGNITIVE/BEHAVIORAL PRIOR TO ADMISSION: Baseline Mental Status: Alert AND Oriented, Person, Place , Time and Situation Functional Status: Independent Does Patient Currently Receive Any Community Services or Home Care? None Equipment Prior to Admission: None Has the Patient Been in a Mcfp Facility in the Past 30 days? 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 No Caregiver Needed Patient's transition needs and plan for meeting these needs: No skilled needs Does the patient have an acute stroke diagnosis, or has the patient had a stroke during this admission? No Medication Adherence: I am convinced of the importance of my prescription medication: Agree completely - 0 I worry that my prescription medication will do more harm than good to me Disagree mostly - 0 I feel financially burdened by my [id number] expenses for my prescription medication: Disagree mostly -0 Patient is categorized as low risk < 2 Are you interested in bedside delivery of your medications? Yes Food Concerns: In the Last Month, Have You had Trouble Getting Food? No trouble getting food During the Last Month, Have You Worried Whether Your Food Would Run Out Before You Had Enough Money to Buy More? No Is the Patient Psychosocially Complex? No ASSESSMENT AND PLAN: Medical Needs: 2 or more chronic diseases and Obesity Psychosocial Needs: None FREEDOM OF CHOICE EXPLAINED: N/A POTENTIAL TRANSITION PLANS Home CM met with patient at bedside for initial assessment. CM introduced self and CM role. Patient underwent Lap Gastric Sleeve 08/05. Patient stated she is doing well except for pain. CM offered encouragement and advised patient to ask for pain medicine when due. Patient stated she lives independently at home with spouse, Obinna and 3 sons. Patient stated she has good family support. Patient has no skilled needs at present. However, CM will continue to follow for any new post acute medical needs. SIGNATURE: Analia Malik RN PATIENT NAME: Viviane Teresa DATE: August 06, 2018 TIME: 11:27 AM PAGER/CONTACT #: [phone] Normal [facility] CBC and Differentialon 08-06 Abs Baso 0.04 k/uL Normal <0.11 [facility] Comment on above: Performed By: #### C BCDIF, BMP, MG1, PHOS ####[facility] [address], [place] [phone] Abs Tama 1.22 k/uL High <0.87 [facility] Comment on above: Performed By: #### C BCDIF, BMP, MG1, PHOS ####[facility] [address], [place] [phone] Abs Neut 11.97 k/uL High 1.45-7.50 [facility] Comment on above: Performed By: #### C BCDIF, BMP, MG1, PHOS ####[facility] [phone] Absolute nRBC <0.01 Normal <0.01 [facility] Comment on above: Performed By: #### C BCDIF, BMP, MG1, PHOS ####[place] [address] [place] [phone] Basophils/100 WBC (Bld) 0.3 % Normal [facility] Comment on above: Performed By: #### C BCDIF, BMP, MG1, PHOS ####[place] [address] [place] [phone] DTYPE Auto Diff Normal [facility] Comment on above: Performed By: #### C BCDIF, BMP, MG1, PHOS ####[place] [address] [phone] Eosinophils (Bld) [#/Vol] 10*3/uL Normal <0.46 [facility] Comment on above: Performed By: #### C BCDIF, BMP, MG1, PHOS ####[place] [address] [phone] Eosinophils/100 WBC (Bld) 0.0 % Normal [facility] Comment on above: Performed By: #### C BCDIF, BMP, MG1, PHOS ####[place] [address] [place] [phone] Erythrocyte distribution width (RBC) [Ratio] 12.9 % Normal 11.5-15.0 [facility] Comment on above: Performed By: #### C BCDIF, BMP, MG1, PHOS ####[facility] [place] [phone] Hematocrit (Bld) [Volume fraction] 43.9 % Normal 36.0-46.0 [facility] Comment on above: Performed By: #### C BCDIF, BMP, MG1, PHOS ####[place] [address], [place] [phone] Hemoglobin (Bld) [Mass/Vol] 14.6 g/dL Normal 11.5-15.5 [facility] Comment on above: Performed By: #### C BCDIF, BMP, MG1, PHOS ####[place] [address] [phone] Lymphocytes (Bld) [#/Vol] 2.46 10*3/uL Normal 1.00-4.00 [facility] Comment on above: Performed By: #### C BCDIF, BMP, MG1, PHOS ####[place] [address], [place] [phone] Lymphocytes/100 WBC (Bld) 15.7 % Normal [facility] Comment on above: Performed By: #### C BCDIF, BMP, MG1, PHOS ####[place] [address] [phone] MCH (RBC) [Entitic mass] 29.6 pG Normal 26.0-34.0 [facility] Comment on above: Performed By: #### C BCDIF, BMP, MG1, PHOS ####[place] [address] [phone] MCHC (RBC) [Mass/Vol] 33.3 g/dL Normal 30.5-36.0 [facility] Comment on above: Performed By: #### C BCDIF, BMP, MG1, PHOS ####[place] [address], [place] [phone] MCV (RBC) [Entitic vol] 89.0 fL Normal 80.0-100.0 [facility] Comment on above: Performed By: #### C BCDIF, BMP, MG1, PHOS ####[facility], [place] [phone] Monocytes/100 WBC (Bld) 7.8 % Normal [facility] Comment on above: Performed By: #### C BCDIF, BMP, MG1, PHOS ####[facility], [place] [phone] Neutrophils/100 WBC (Bld) 76.2 % Normal [facility] Comment on above: Performed By: #### C BCDIF, BMP, MG1, PHOS ####[place] [address], [place] [phone] NRBCs 0.0 /100 WBC Normal 0 [facility] Comment on above: Performed By: #### C BCDIF, BMP, MG1, PHOS ####[place] [address], [place] [phone] Platelet mean volume (Bld) [Entitic vol] 11.0 fL Normal 9.0-12.7 [facility] Comment on above: Performed By: #### C BCDIF, BMP, MG1, PHOS ####[place] [address], [place] [phone] Platelets (Bld) [#/Vol] 291 10*3/uL Normal 150-400 [facility] Comment on above: Performed By: #### C BCDIF, BMP, MG1, PHOS ####[place] [address], [place] [phone] RBC (Bld) [#/Vol] 4.93 10*6/uL Normal 3.90-5.20 [facility] Comment on above: Performed By: #### C BCDIF, BMP, MG1, PHOS ####[place] [address], [place] [phone] WBC (Bld) [#/Vol] 15.69 10*3/uL High 3.70-11.00 [facility] Comment on above: Performed By: #### C BCDIF, BMP, MG1, PHOS ####[facility] [address] [place], [place] [phone] Magnesiumon 08-06-2018 Magnesium [Mass/Vol] 1.8 mg/dL Normal 1.7-2.3 [facility] Comment on above: Performed By: #### C BCDIF, BMP, MG1, PHOS ####[facility] [address], [place] [phone] PROGRESSon 08-06-2018 PROGRESS HNO ID: [id number] Author: Debby NesbittRn) BESSIE Boone Service: (none) Author Type: Registered Nurse Type: Progress Notes Filed: 08/06/2018 3:32 PM Note Text: 1532 text paged MD Colbert, asked MD about replacing electrolytes. Awaiting possible orders. Debby Boone RN Normal [facility] PROGRESS HNO ID: [id number] Author: Eva (Alvaro) Buster Service: General Surgery Author Type: Resident Type: Progress Notes Filed: 08/06/2018 6:53 AM Note Text: SURGERY INPATIENT PROGRESS NOTE ASSESSMENT AND PLAN Viviane Teresa is a 37 year old female, POD#1 s/p LRYGB. Expected post-op course thus far. -Pain Control:Tylenol, oxycodone, dilaudid -FEN/GI: Phase II -encourage IS, OOBA -DVT ppx: Lovenox, IPCs -Lines/Drains: No burns -Dispo: RNF, discharge home tomorrow Will discuss with staff/senior resident Eva Goins MD August 06, 2018 General Surgery PGY1 P# [phone] 6pm to 6 am, and on weekends, please page general surgery on-call SUBJECTIVE/INTERVAL EVENTS No acute events. Pain adequately controlled. Tolerating diet. No n/v. -BM OBJECTIVE BP 134/73 Pulse 89 Temp 36.8 ?C (98.2 ?F) (Oral) Resp 18 Ht 165.1 cm (5' 5 ) Wt (!) 137.7 kg (303 lb 9.2 oz) SpO2 96% BMI 50.52 kg/m? No intake or output data in the 24 hours ending 08/05/18 0659 General: NAD, resting in bed CV: RRR, extremities wwp Pulm: nonlabored breathing, symmetrical rise, no stridor Abdomen: Soft, non tender, non distended, incision c/d/i Neuro: moves all 4 extremities, no focal deficits Labs/Imaging: CBC, BMP, MG, PHOS Recent Labs 07/30/18 1058 02/18/18 1117 WBC 13.32* 11.34* HB 15.6* 14.5 HCT 45.7 44.0 PLT 327 276 NA 140 141 K 3.9 4.0 CHLOR 97 102 CO2 24 28 BUN 13 12 CREAT 0.74 0.69 GLUC 93 103* CA 9.9 9.2 Liver Function, Amylase, AND Lipase Recent Labs 07/30/18 1058 02/18/18 1117 TPROT 8.0 7.1 ALB 4.6 4.2 ALT 19 19 AST 20 17 ALKPHOS 72 70 TBILI 0.3 0.2 Coags No results for input(s): APTT, INR in the last 97048 hours. Invalid input(s): PT Normal [facility] PROGRESS HNO ID: [id number] Author: Dilia Reed Service: General Surgery Author Type: Resident Type: Progress Notes Filed: 08/06/2018 12:39 AM Note Text: Surgery Post-Op Check Subjective: Pain controlled N/V: No Denies CP, SOB, palpitations Objective: BP 133/78 Pulse 85 Temp 37.3 ?C (99.1 ?F) (Oral) Resp 18 Ht 165.1 cm (5' 5 ) Wt (!) 137.7 kg (303 lb 9.2 oz) SpO2 95% BMI 50.52 kg/m? General: no acute distress, alert, oriented CV: RRR Pulm: non-labored breathing on RA Abdomen: soft, appropriately tender, incisions c/d/i Tubes/Drains: n/a Burns: n/a Assessment/Plan: 37 year old female, POD#0 s/p LRYGB, hemodynamically stable with adequate, pain control. Overall, uneventful postop course -Continue bariatric phase 1 diet for now -Encourage incentive spirometry and ambulation -Continue routine post-op care Dilia Reed MD General Surgery - PGY 1 Normal [facility] PT EDon 08-06-2018 PT ED HNO ID: [id number] Author: Angie (Dtr) Capri Service: Nutrition Therapy Author Type: Filenet Architect Type: Patient Education Filed: 08/06/2018 12:15 PM Note Text: NUTRITION PATIENT EDUCATION TOPIC: Survival Skills: Diet and Lifestyle Changes: Diet and Weight PATIENT NAME: Viviane Teresa SERVICE DATE: August 06, 2018 Diagnosis: ADULT: Obesity READINESS TO LEARN Motivation to Learn: Interested Family Support: Unable to assess - Family not present Instruction Provided to: Patient Factors Affecting Learning: None Physical Limitations Affecting Learning: None LEARNING RESPONSE Patient / Family Response: Verbalizes understanding of Nutrition Guidelines after Weight Loss Surgery: Diet phases and complication prevention, foods to avoid, allowed foods and the importance of adequate protein and fluid intake. Method of Instruction: Individual instruction Written instruction - handouts Verbal instruction Instructional Aids Used: NA Supplemental Material Provided to Patient: Nutrition Therapy instruction material: Nutritional G/L after Weight Loss Surgery Referral (Recommendation): Nutrition - Outpatient MNT Billing Type: Routine Care/15 min 2 units Angie Farooq, DTR Pager: [phone] August 06, 2018 12:14 PM Normal [facility] Phosphoruson 08-06-2018 Phosphate [Mass/Vol] 1.7 mg/dL Low 2.7-4.8 [facility] Comment on above: Performed By: #### C BCDIF, BMP, MG1, PHOS ####[facility] [address] [place], [place] [phone] ANES Theron 08-05-2018 ANES POST HNO ID: [id number] Author: Taylor Prince Service: Anesthesiology Author Type: Anesthesiologist Type: Anesthesia PostOp Filed: 08/06/2018 7:49 AM Note Text: POST ANESTHESIA EVALUATION NOTE SERVICE DATE: 08/05/2018 SERVICE TIME: 1600 : 1979 Vitals: 08/05/18 1700 08/05/18 1800 08/05/18 2312 08/06/18 0304 Temp: 37.2 ?C (99 ?F) 36.5 ?C (97.7 ?F) 37.3 ?C (99.1 ?F) 36.8 ?C (98.2 ?F) 08/05/18169908/05/18 1800 08/05/18231108/06/18 0304 BP: 148/74 140/84 133/78 134/73 08/05/180 08/05/18 1800 08/05/18231108/06/18 0304 Pulse: 92 91 85 89 08/05/18169908/05/18 1800 08/05/18231108/06/18 0304 Resp: 16 18 18 18 08/05/18169908/05/18179908/05/18231108/06/18 0304 SpO2: 97% 95% 95% 96% Validated Vital Signs: Yes POST ANES STATUS: No apparent anesthetic complications. The patient is appropriately hydrated with stable respiratory and cardiovascular status. Patient has safe and adequate airway control. The patient has appropriate pain relief and no significant post operative nausea or vomiting. The patient has achieved baseline mental status. Intra-Operative Events: No Significant Anesthesia Events Further assessment by Anesthesia Service: None Other Remarks: SIGNATURE: Taylor Prince MD PATIENT NAME: Viviane Teresa DATE: August 05, 2018 TIME: 3:33 PM PAGER/CONTACT #: [phone] [facility] NURSING PROGon 08-05-2018 NURSING PROG HNO ID: [id number] Author: Billie Millard) BESSIE Macedo Service: Nursing Author Type: Registered Nurse Type: Nursing Progress Note Filed: 08/05/2018 6:02 PM Note Text: Nursing Progress Note Patient Name: Viviane Teresa Patient Location: M063 015/M063-15 Transfer Note: Patient transferred into room/unit M63-15 from PACU in stable condition. Actions taken: No futher actions taken at this time. Will continue to monitor and check with patient. Skin assessed with BESSIE Adams. No signs of pressure injury/skin breakdown. This note was completed by: Billie Macedo RN Normal [facility] NURSING PROG HNO ID: [id number] Author: Garima NesbittRn) BESSIE Aguilar Service: (none) Author Type: Registered Nurse Type: Nursing Progress Note Filed: 08/05/2018 4:41 PM Note Text: Pt is doing well postoperatively. Vss, pain controlled with prn meds. No acute distress noted or complaints voiced. Pt being discharged from pacu in stable condition. Normal [facility] NURSING PROG HNO ID: [id number] Author: Billie NesbittRn) BESSIE Diaz Service: (none) Author Type: Registered Nurse Type: Nursing Progress Note Filed: 08/05/2018 9:37 AM Note Text: PRE OP LEARNING ASSESSMENT ? PROCEDURE/SURGERY: SURGERY: logistics READINESS TO LEARN COGNITIVE ABILITY: Alert and oriented MOTIVATION TO LEARN: Interested FAMILY SUPPORT: High - Very involved in pt care PATIENT LEARNS BEST BY: Individual Instruction Verbal Instruction FACTORS AFFECTING LEARNING: None PHYSICAL LIMITATIONS AFFECTING LEARNING: None ? Electronically Signed By: Billie Diaz RN In Department: HOSP MAIN G31 [facility] [facility] CBC and Differentialon 07-30 Abs Baso 0.05 k/uL Normal <0.11 [facility] Comment on above: Performed By: #### C BCOLIVIA, CMP ####[facility] [address] [place], [place] [phone] Abs Tama 0.94 k/uL High <0.87 [facility] Comment on above: Performed By: #### C ADELAF, CMP ####[facility] [address], [place] [phone] Abs Neut 9.08 k/uL High 1.45-7.50 [facility] Comment on above: Performed By: #### C BCDIF, CMP ####[facility] [address] [place], [place] [phone] Absolute nRBC <0.01 Normal <0.01 [facility] Comment on above: Performed By: #### C BCDIF, CMP ####[place] [address] [place] [phone] Basophils/100 WBC (Bld) 0.4 % Normal [facility] Comment on above: Performed By: #### C BCDIF, CMP ####[place] [address] [address] [place] [phone] DTYPE Auto Diff Normal [facility] Comment on above: Performed By: #### C BCDIF, CMP ####[place] [address] [phone] Eosinophils (Bld) [#/Vol] 0.06 10*3/uL Normal <0.46 [facility] Comment on above: Performed By: #### C BCDIF, CMP ####[place] [address] [place] [phone] Eosinophils/100 WBC (Bld) 0.5 % Normal [facility] Comment on above: Performed By: #### C BCDIF, CMP ####[place] [address] [place] [phone] Erythrocyte distribution width (RBC) [Ratio] 13.1 % Normal 11.5-15.0 [facility] Comment on above: Performed By: #### C BCDIF, CMP ####[place] [address] [place] [phone] Hematocrit (Bld) [Volume fraction] 45.7 % Normal 36.0-46.0 [facility] Comment on above: Performed By: #### C BCDIF, CMP ####[place] [address] [place] [phone] Hemoglobin (Bld) [Mass/Vol] 15.6 g/dL High 11.5-15.5 [facility] Comment on above: Performed By: #### C BCDIF, CMP ####[place] [address], [place] [phone] Lymphocytes (Bld) [#/Vol] 3.19 10*3/uL Normal 1.00-4.00 [facility] Comment on above: Performed By: #### C BCDIF, CMP ####[place] [address] [address], [place] [phone] Lymphocytes/100 WBC (Bld) 23.9 % Normal [facility] Comment on above: Performed By: #### C BCDIF, CMP ####[place] [address], [place] [phone] MCH (RBC) [Entitic mass] 29.9 pG Normal 26.0-34.0 [facility] Comment on above: Performed By: #### C BCDIF, CMP ####[place] [address] [address] [place] [phone] MCHC (RBC) [Mass/Vol] 34.1 g/dL Normal 30.5-36.0 [facility] Comment on above: Performed By: #### C BCDIF, CMP ####[place] [address], [place] [phone] MCV (RBC) [Entitic vol] 87.7 fL Normal 80.0-100.0 [facility] Comment on above: Performed By: #### C BCDIF, CMP ####[place] [address], [place] [phone] Monocytes/100 WBC (Bld) 7.1 % Normal [facility] Comment on above: Performed By: #### C BCDIF, CMP ####[place] [address], [place] [phone] Neutrophils/100 WBC (Bld) 68.1 % Normal [facility] Comment on above: Performed By: #### C BCDIF, CMP ####[place] [address] [place], [place] [phone] NRBCs 0.0 /100 WBC Normal 0 [facility] Comment on above: Performed By: #### C BHASKAR, CMP ####[facility], [place] [phone] Platelet mean volume (Bld) [Entitic vol] 11.1 fL Normal 9.0-12.7 [facility] Comment on above: Performed By: #### C BHASKAR, CMP ####[place] [address] [place], [place] [phone] Platelets (Bld) [#/Vol] 327 10*3/uL Normal 150-400 [facility] Comment on above: Performed By: #### C BHASKAR, CMP ####[facility] [place], [place] [phone] RBC (Bld) [#/Vol] 5.21 10*6/uL High 3.90-5.20 [facility] Comment on above: Performed By: #### C BHASKAR, CMP ####[facility] [place], [place] [phone] WBC (Bld) [#/Vol] 13.32 10*3/uL High 3.70-11.00 [facility] Comment on above: Performed By: #### Margarita MURO, CMP ####[facility] [place], [place] [phone] CNCNPATEDon 07-30-2018 CNCNPATED Education (GENBMI) VIVIANE TERESA ([id number]) 1980 F Date Time Provider Department 07/30/18 NKECHI LOPEZ (RN) BRE Reason for Visit: Patient Education [91] Visit Notes: >> Nkechi Menjivar (Rn) BESSIE Lopez Wed Jul 30, 2018 2:21 PM Status: Signed BMI SPECIALTY CARE COORDINATION SURGERY PRE-OP EDUCATION NOTE AMBULATORY PATIENT EDUCATION NOTE TOPIC: SURVIVAL SKILLS: LRYGB READINESS TO LEARN COGNITIVE ABILITY: Alert and oriented MOTIVATION TO LEARN: Eager Interested FAMILY SUPPORT: Unable to assess - Family not present INSTRUCTION PROVIDED TO: Patient PATIENT LEARNS BEST BY: Written Instruction - Hand-outs Verbal Instruction FACTORS AFFECTING LEARNING: None PHYSICAL LIMITATIONS AFFECTING LEARNING: None LEARNING RESPONSE DIAGNOSIS: Morbid Obesity METHOD OF INSTRUCTION: Group class instruction PATIENT / FAMILY RESPONSE: Verbalizes understanding of: INFECTION MANAGEMENT-Signs and symptoms of an infection and importance of contacting the physician PAIN MANAGEMENT-Effective strategies to manage pain in addition to pain medication POST-OPERATIVE INSTRUCTIONS-Correct actions to take to reduce postoperative complications PRE-OPERATIVE INSTRUCTIONS-Correct action to take to follow pre-operative instructions FOLLOW-UP PLAN: Patient instructed to call with any further issues SUPPLEMENTAL MATERIAL: Your Surgical Guide REFERRAL (RECOMMENDATION): None Surgery Pre-Op Education Note in Nurse Visit Education video modules viewed by the patient: No Postop prescriptions provided to the patient: Yes Postop Surgeon Visit scheduled: Yes On-Call AND Clinic Phone Number given to the Patient: Yes Patient Instructions for the Liquid Diet: Day Before Surgery - Liquid Diet Instruction Review 1. Last Protein shake should be before 6 pm. 2. It is important that you stay hydrated - 64 ounces of fluid per day. 3. Drink a 28-32 ounce bottle of a regular (not sugar free) sport drink (Gatorade, Powerade, etc.) the night prior to surgery. If the sport drinks aren?t tolerable, may substitute with no sugar added - no pulp juice - apple, cranberry, lemonade, white grape or orange. Day of Surgery Clear Liquid Diet Drink 12-20 ounces of a regular sport drink (or juice as above) stop liquids 2 hours before scheduled arrival time. Other Instructions Reviewed: Skin Preparation: Hibiclens bottle AND instructions, Norma, wound care, vitamin AND nutrients, activity restrictions post op, discharge instructions AND surgical guide, incentive spirometry;diet progression-jasmyn phase I AND II AND 2wk liquid diet prior to surgery, activity level AND pt responsibility during hospitalization. Sleep Apnea: Even if you don't have the diagnosis of sleep apnea, the pain medicine you receive and your weight put you at risk for breathing complications and apnea after surgery. After your operation, RT will assess you in the recovery room and again on the solorzano. They will most likely ask you to wear a face mask that will deliver oxygen using some mild positive pressure. The machine will automatically adjust the amount of pressure you receive. Wearing the mask does not mean that you will need to go home with it or have the diagnosis of sleep apnea. It will only be used after surgery to maintain your oxygen levels. Do not take pain medication three hours before bedtime as it may cause breathing difficulty. If you are having pain at bedtime you may take two Extra Strength Tylenol. Nkechi Lopez RN During your visit today, we recorded the following information about you: Allergies As of Date: 07/30/2018 (No Known Allergies) Date Reviewed: 07/30/2018 Reviewed by: Heath Echols - Fully Assessed Prescriptions as of 07/30/2018 Sig: OXYCODONE 5 MG/5 ML ORAL SOLU* Take 5 mL by mouth every 6 ho* FAMOTIDINE 20 MG TABLET Take 1 tablet by mouth twice * SCOPOLAMINE 1 MG OVER 3 DAYS * Apply 1 Patch as directed helene* URSODIOL 250 MG TABLET Take 1 tablet by mouth three * ONDANSETRON 4 MG DISINTEGRATI* Take 1 tablet by mouth every * DIPHENHYDRAMINE 25 MG CAPSULE BUDESONIDE-FORMOTERO L HFA 80 * Inhale as instructed. CETIRIZINE 10 MG TABLET Take 10 mg by mouth. MONTELUKAST 10 MG TABLET Take 10 mg by mouth. MULTIPLE VITAMINS ORAL Take by mouth. PAROXETINE 10 MG TABLET Take 10 mg by mouth. MELOXICAM 15 MG TABLET-IRRITA* FUROSEMIDE 40 MG TABLET Take 40 mg by mouth twice zara* AMLODIPINE 10 MG TABLET Take 10 mg by mouth once danika* Encounter Status:Closed by NKECHI LOPEZ on 07/30/18 [facility] Jac 07-30-2018 CNOV Office Visit (GENBMI) VIVIANE TERESA ([id number]) 1980 F Date Time Provider Department 07/30/18 1:00 PM HEATH ECHOLS During your visit today, we recorded the following information about you: Pulse Blood pressure Weight Height 92/minute 142/86 139.7 kg 1.643 m Ellen Adames Ma 07/30/2018 12:29 PM Signed Body mass index is 51.73 kg/m?. Heath Echols MD 07/30/2018 1:52 PM Signed BARIATRIC SURGERY PREOPERATIVE VISIT NOTE Name: Viviane Teresa Medical Record: [id number] Encounter No.: [id number] Viviane Teresa is a 37 year old female seen in Bariatric Surgery clinic today for their final preoperative assessment. WEIGHT Current Wt/BMI: Body mass index is 51.73 kg/m?. Initial weight/BMI: 308 lb Planned Procedure: Laparoscopic Parker en-Y Gastric Bypass PAST MEDICAL HISTORY: PAST MEDICAL HISTORY Diagnosis Date - Hypertension - Obstructive sleep apnea PAST SURGICAL HISTORY: No past surgical history on file. SOCIAL HISTORY: Social History Substance Use Topics - Smoking status: Never Smoker - Smokeless tobacco: Never Used - Alcohol use Not on file ALLERGIES: ALLERGIES No Known Allergies MEDICATIONS: Prior to Admission Medications: diphenhydrAMINE (BENADRYL) 25 mg capsule budesonide-formotero l (SYMBICORT) 80-4.5 mcg/actuation inhaler Inhale as instructed. cetirizine (ZYRTEC) 10 mg tablet Take 10 mg by mouth. montelukast (SINGULAIR) 10 mg tablet Take 10 mg by mouth. multivitamin (MULTIPLE VITAMINS ORAL) Take by mouth. PARoxetine (PAXIL) 10 mg tablet Take 10 mg by mouth. Meloxicam AND Irritant Cntr #2 15 mg kit furosemide (LASIX) 40 mg tablet Take 40 mg by mouth twice daily. amLODIPine (NORVASC) 10 mg tablet Take 10 mg by mouth once daily. oxyCODONE (ROXICODONE) 5 mg/5 mL oral solution Take 5 mL by mouth every 6 hours as needed for up to 7 days. famotidine (PEPCID) 20 mg tablet Take 1 tablet by mouth twice daily. scopolamine (TRANSDERM-SCOP) patch 1.5 mg/72 hr Apply 1 Patch as directed every 72 hours for 7 days. ursodiol (CHELA 250) 250 mg tablet Take 1 tablet by mouth three times daily. ondansetron orally disintegrating (ZOFRAN ODT) 4 mg disintegrating tablet Take 1 tablet by mouth every 8 hours as needed for Nausea/Vomiting. No current hospital medications on file. VISIT NOTE This patient was seen in clinic today to obtain informed consent, to discuss the details of their upcoming operation including the appropriate expectations for perioperative and postoperative care. In addition, preoperative and postoperative relevant prescriptions were provided and explained during this clinic visit. The consent discussion included the risks, benefits and anticipated outcomes of the procedure, the risks and benefits of the alternatives to the procedure, and the roles and tasks of the personnel to be involved. The patient had an opportunity to ask additional questions that were answered. The patient expressed that they understood. A consent form was signed today. Prescriptions were explained and provided to the patient. Postoperative VTE risk is .27% according to Sleeve Risk Calculator. ? Checklist Items Completed Not Completed Preoperative H AND P Y Preoperative labs (including fasting glucose, blood typing and A1C) Y Preoperative cardiac work-up (EKG / ECHO) Y GI evaluation (UGI / EGD) if needed NA Pulmonary evaluation (Patient to bring CPAP mask day of surgery) Y Consult placed for difficult IV access if needed NA Postoperative medications prescribed Y Nutrition evaluation Y Psychosocial evaluation Y NORMA and preop videos confirmation Y Stop OCP's, Aspirin, Anticoagulation prior to surgery Y-stopped meloxicam Smoking cessation - Urine cotinine ordered if needed NA Planned post op ICU admission N ? Chicho Ku MD Bariatric Surgery Fellow STAFF NOTE I have seen and evaluated the patient and discussed the case with the resident physician. I agree with the assessment and plan as documented in the resident?s note. Heath Echols MD Referring Provider: HEATH ECHOLS [[id number]] Allergies As of Date: 07/30/2018 (No Known Allergies) Date Reviewed: 07/30/2018 Reviewed by: Heath Echols - Fully Assessed Reason for Visit: Established Patient [175] Primary Visit Diagnosis:Acute postoperative pain [G89.18] Other Visit Diagnosis:Morbid obesity (HCC) [E66.01] Order(s):oxyCODONE (ROXICODONE) 5 mg/5 mL oral solutionTake 5 mL by mouth every 6 hours as needed for up to 7 days.Disp: 70 mLRfl: 0 famotidine (PEPCID) 20 mg tabletTake 1 tablet by mouth twice daily.Disp: 180 tabletRfl: 1 scopolamine (TRANSDERM-SCOP) patch 1.5 mg/72 hrApply 1 Patch as directed every 72 hours for 7 days.Disp: 2 PatchRfl: 0 ursodiol (CHELA 250) 250 mg tabletTake 1 tablet by mouth three times daily.Disp: 270 tabletRfl: 1 ondansetron orally disintegrating (ZOFRAN ODT) 4 mg disintegrating tabletTake 1 tablet by mouth every 8 hours as needed for Nausea/Vomiting.Disp : 20 tabletRfl: 1 Prescriptions as of 07/30/2018 Sig: DIPHENHYDRAMINE 25 MG CAPSULE BUDESONIDE-FORMOTERO L HFA 80 * Inhale as instructed. CETIRIZINE 10 MG TABLET Take 10 mg by mouth. MONTELUKAST 10 MG TABLET Take 10 mg by mouth. MULTIPLE VITAMINS ORAL Take by mouth. PAROXETINE 10 MG TABLET Take 10 mg by mouth. MELOXICAM 15 MG TABLET-IRRITA* FUROSEMIDE 40 MG TABLET Take 40 mg by mouth twice zara* AMLODIPINE 10 MG TABLET Take 10 mg by mouth once danika* OXYCODONE 5 MG/5 ML ORAL SOLU* Take 5 mL by mouth every 6 ho* FAMOTIDINE 20 MG TABLET Take 1 tablet by mouth twice * SCOPOLAMINE 1 MG OVER 3 DAYS * Apply 1 Patch as directed helene* URSODIOL 250 MG TABLET Take 1 tablet by mouth three * ONDANSETRON 4 MG DISINTEGRATI* Take 1 tablet by mouth every * Medication notes this encounter ENOXAPARIN 40 MG/0.4 ML SUBCUTANEOUS SYRINGE >> Chicho Ku MD 07/30/2018 1:44 PM not needed Problem List As Of Date 07/30/2018 Noted Resolved RANDEE (obstructive sleep apnea) [G47.33] INVALID FOR* Essential hypertension [I10] INVALID FOR* Morbid obesity (HCC) [E66.01] INVALID FOR* Preoperative examination [Z01.818] INVALID FOR* More... Acute postoperative pain [G89.18] INVALID FOR* Visit Notes: >> Ellen Adames Ma SatJul 30, 2018 12:28 PM Status: Signed Body mass index is 51.73 kg/m?. Prescriptions ordered this encounter Disp Refills Start End OXYCODONE 5 MG/5 ML ORAL SOLUTION 70 mL 0 07/30/2018 08/06/2018 Class: Print RX Route: ORAL Sig: Take 5 mL by mouth every 6 hours as needed for up to 7 days. FAMOTIDINE 20 MG TABLET 180 * 1 07/30/2018 01/26/2019 Class: Print RX Route: ORAL Sig: Take 1 tablet by mouth twice daily. SCOPOLAMINE 1 MG OVER 3 DAYS TRANSDE* 2 Pa* 0 07/30/2018 08/06/2018 Class: Print RX Route: TRANSDERM. Sig: Apply 1 Patch as directed every 72 hours for 7 days. URSODIOL 250 MG TABLET 270 * 1 07/30/2018 01/26/2019 Class: Print RX Route: ORAL Sig: Take 1 tablet by mouth three times daily. ONDANSETRON 4 MG DISINTEGRATING TABL* 20 t* 1 07/30/2018 08/29/2018 Class: Print RX Route: ORAL Sig: Take 1 tablet by mouth every 8 hours as needed for Nausea/Vomiting. ENOXAPARIN 40 MG/0.4 ML SUBCUTANEOUS* 11.2* 0 07/30/2018 07/30/2018 Class: Print RX Route: SUBCUTANEOUS Sig: Inject 0.4 mL subcutaneously twice daily for 14 days. (Inject entire contents of one(1) syringe subcutaneously twice daily.) Medications Discontinued During This Encounter enoxaparin (LOVENOX) 40 mg/0.4 mL sy* 11.2* 0 07/30/2018 07/30/2018 Class: Print RX Route: SUBCUTANEOUS Sig: Inject 0.4 mL subcutaneously twice daily for 14 days. (Inject entire contents of one(1) syringe subcutaneously twice daily.) Disc: Reason for discontinue is not on file. Encounter Status:Closed by HEATH ECHOLS MD on 07/30/18 Normal [facility] CNOV Office Visit (PSSCMN) VIVIANE TERESA ([id number]) 1980 F Date Time Provider Department 07/30/18 11:[address] [facility] During your visit today, we recorded the following information about you: Pulse Blood pressure Weight Height 92/minute 142/86 139.7 kg 1.645 m Marie Guidry, RN, RN 07/30/2018 12:09 PM Addendum ANESTHESIA PRE-OPERATIVE ASSESSMENT (PACE) SERVICE DATE: 07/30/2018 SERVICE TIME: 1152 ASSESSMENT AND PLAN: Viviane Teresa is a 37 year old female scheduled for LAPAROSCOPIC GASTRIC RESTRICTIVE SURG W/ BYPASS AND PARKER-EN-Y per Surgery Request Case in MAIN on 08/08/2018. PMH: Morbid obesity HTN-norvasc Asthma- well controlled-zyrtec, Singulair, Symbicort RANDEE-cpap Piero Knee pain r/t OA- mobic last dose 07/24/18 Depression- Paxil [facility]: 4 METS: Do moderate work around the house such as vacuuming, sweeping floors, or carrying in groceries (3.50 METs) Patient denies any chest pain or undue shortness of breath with the above physical activity. 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 Patient WILL accept blood products. BLOOD WORK/PRODUCTS ORDERED: Type and Screen , Con ABO HISTORY OF CHRONIC PAIN: No PAIN MANAGEMENT OPTIONS: Routine/PRN IV, TAPS and Final pain management plan will be discussed on the day of surgery. ANESTHETIC OPTIONS: General and Final anesthesia management options will be discussed on day of surgery. PRE-OP PLAN ORDERED: Not Applicable Patient Instructed: ? No solid food or non-clear liquids after midnight. Clear liquids allowed until two hours before scheduled arrival. ? Patient instructed to take the following medications with a sip of water: paxil, norvasc, singulair, symbicort, zyrtec, bring CPAP Vital Signs: BP 142/86 (BP Site: Right Arm, BP Position: Sitting, BP Cuff Size: Large Adult) Pulse 92 Ht 164.5 cm (5' 4.76 ) Wt (!) 139.7 kg (307 lb 15.7 oz) SpO2 98% BMI 51.63 kg/m? BMI 51.62 kg/(m2) Vital signs completed by: Surgical Services Weight acquired: per HANDP. Height acquired: per HANDP Airway Exam: MOUTH OPENING/TMJ: Full jaw ROM MICROGNATHIA/OVERBIT E: No MALLAMPATI SCORE is CLASS II UPPER LIP BITE TEST: Class II - Lower incisors can bite the upper lip below the alysia line DENTITION: Intact THYROMENTAL DIST: WNL SHORT NECK: No NECK CIRCUMFERENCE >40 cm: Appears > than 40 CM and Neck Circumference measured at 42 cm NECK FLEX: Full ROM NECK EXTENSION: Full ROM AIRWAY HISTORY: No abnormal airway history ARKS AIRWAY DETAIL: N/A DATA: EKG READING: Confirmed - 02/17/18 NSR, nl EKG OSR OTHER TESTS: N/A Lab Value Units Date High Low HB No results within date range. HCT No results within date range. WBC No results within date range. PLT No results within date range. NA No results within date range. K No results within date range. GLUC No results within date range. BUN No results within date range. CREAT No results within date range. PTSEC No results within date range. INR No results within date range. APTT No results within date range. ALT No results within date range. AST No results within date range. TBILI No results within date range. TSH No results within date range. Lab Value Units Date High Low HCGQT No results within date range. UHCG No results within date range. HCG, BODY* No results within date range. ABORHD No results within date range. ABSCREEN No results within date range. HBA1C: Hemoglobin A1C (%) Date Value 02/18/2018 5.7 ) Patient accompanied by self Case Discussed with Dr Haddad OPTIMIZATION STATUS: Patient optimization pending Labs IMPACT and PACE(TANDS only) Addendum: LUCHO Quezada RN ABO/RH(D) Date Value Ref Range Status 07/30/2018 A POSITIVE Final Antibody Screen Date Value Ref Range Status 07/30/2018 NEG Final SIGNATURE: Marie Guidry RN PATIENT NAME: Viviane Teresa DATE: July 30, 2018 TIME: 11:52 AM PAGER/CONTACT #: Referring Provider: HEATH ECHOLS [[id number]] Allergies As of Date: 07/30/2018 (No Known Allergies) Date Reviewed: 07/30/2018 Reviewed by: Heath Echols - Fully Assessed Primary Visit Diagnosis:Pre-op evaluation [Z01.818] Prescriptions as of 07/30/2018 Sig: DIPHENHYDRAMINE 25 MG CAPSULE BUDESONIDE-FORMOTERO L HFA 80 * Inhale as instructed. CETIRIZINE 10 MG TABLET Take 10 mg by mouth. MONTELUKAST 10 MG TABLET Take 10 mg by mouth. MULTIPLE VITAMINS ORAL Take by mouth. PAROXETINE 10 MG TABLET Take 10 mg by mouth. MELOXICAM 15 MG TABLET-IRRITA* FUROSEMIDE 40 MG TABLET Take 40 mg by mouth twice zara* AMLODIPINE 10 MG TABLET Take 10 mg by mouth once danika* Problem List As Of Date 07/30/2018 Noted Resolved RANDEE (obstructive sleep apnea) [G47.33] INVALID FOR* Essential hypertension [I10] INVALID FOR* Morbid obesity (HCC) [E66.01] INVALID FOR* Preoperative examination [Z01.818] INVALID FOR* More... Acute postoperative pain [G89.18] INVALID FOR* Encounter Status:Closed by MARIE GUIDRY RN on 07/30/18 Chart Close Cosign Accepted by: MARGARET HADDAD III, MD[[id number]] Chart Close Cosign Accepted on: SatJul 30, 2018 12:48 PM Normal [facility] CNOV Office Visit (GENBMI) VIVIANE TERESA ([id number]) 1980 F Date Time Provider Department 07/30/18 10:00 AM JUSTIN WILCOXI During your visit today, we recorded the following information about you: Pulse Blood pressure Weight Height 92/minute 142/86 139.7 kg 1.645 m Justin Wilcox DO 07/30/2018 10:53 AM Signed BARIATRIC HANDP/PRE-OPERATIVE CONSULT SERVICE DATE: 07/30/2018 SERVICE TIME: 1024AM PRE-OPERATIVE MEDICAL CONSULTATION Consultation requested by Dr. Echols for an opinion regarding preoperative evaluation for upcoming surgery . My final recommendations will be communicated back to the requesting physician by the way of shared medical record. The procedure planned is: LRYGB, 08/08/18 The condition requiring this surgery is causing these symptoms: Other: obesity The patient has following co-morbid condition(s) Hypertension Sleep Apnea Morbid Obesity BP 142/86 (BP Site: Right Arm, BP Position: Sitting, BP Cuff Size: Large Adult) Pulse 92 Ht 164.5 cm (5' 4.77 ) Wt (!) 139.7 kg (308 lb) SpO2 98% BMI 51.62 kg/m? Body mass index is 51.62 kg/m?. MEDICATIONS AND ALLERGIES REVIEWED. Family history -Patients family history is negative for VTE Patient's Past Social histories have been reviewed with the patient, and updated as appropriate. Please see relevant sections in [employer] EHR for details. FUNCTIONAL STATUS: Do heavy work around the house, such as scrubbing floors, lifting or moving heavy furniture (8.00 METs) Patient's functional class is I based on self-reported physical activity. Significant Anesthesia Considerations: None PAST MEDICAL HISTORY Diagnosis Date - Hypertension - Obstructive sleep apnea Asthma No history of LA, COPD, peptic ulcer dx, hyperlipidemia, gallstones, hypothyroidism, hypertension, cancer, DVT, PE, CVA, T2DM, gout, kidney stones, CKD and smoking history. PSH: Hysterectomy, arthroscopy, bilateral carpal tunnel, deviated septum repair x 3, and 2 c-sections No family history on file. Social History Substance Use Topics - Smoking status: Never Smoker - Smokeless tobacco: Never Used - Alcohol use Not on file Current Outpatient Prescriptions: diphenhydrAMINE (BENADRYL) 25 mg capsule budesonide-formotero l (SYMBICORT) 80-4.5 mcg/actuation inhaler Inhale as instructed. cetirizine (ZYRTEC) 10 mg tablet Take 10 mg by mouth. montelukast (SINGULAIR) 10 mg tablet Take 10 mg by mouth. multivitamin (MULTIPLE VITAMINS ORAL) Take by mouth. PARoxetine (PAXIL) 10 mg tablet Take 10 mg by mouth. Meloxicam AND Irritant Cntr #2 15 mg kit furosemide (LASIX) 40 mg tablet Take 40 mg by mouth twice daily. amLODIPine (NORVASC) 10 mg tablet Take 10 mg by mouth once daily. No current facility-administere d medications for this visit. ALLERGIES No Known Allergies REVIEW OF SYSTEMS: General: No weight loss, malaise or fevers. Neuro: No history of TIA's, stroke, RN FAMILY PRACTICE tumor, impaired sensorium, hemiplegia, paraplegia or quadriplegia. No neurological symptoms or problems. Respiratory: Obstructive Sleep Apnea (on CPAP) Asthma under good control. Cardiovascular: Hypertension requiring meds GI: No history of GI symptoms or problems. No history of esophageal varices, recent ascites, or ETOH greater than 2 drinks per day. : No history of UTI in past 6 weeks. No history of renal failure. Not currently on or requiring dialysis. No history of symptoms or problems. 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 Has not taken steroids within the past 30 days. No history of endocrinological symptoms or problems. Hematology: No history of bleeding or clotting disorder. No history of hematological symptoms or problems. Oncology: No history of CA metastasis, chemo within 30 days, or radiotherapy within 90 days. No history of oncological symptoms or problems. Psych: No history of psychiatric symptoms or problems. Skin: Negative for lesions, rash, and itching. Objective PHYSICAL EXAM: VITALS: BP 142/86 Pulse 92 Ht 5' 4.77 (1.65m) Wt 308 lb (139.7kg) SpO2 98% BMI 51.63 kg/(m2). Repeat BP 124/82 Yrbuw-dv-Ruo Ratio = n/a General: Alert and oriented Skin: Normal color, no rash, no lesions. HEENT: EOM, pupils equal, round and reactive. Cardiovascular: Normal S1 AND S2, no rubs, murmurs or gallops. No JVD. Pulse regular. Lungs: Normal breath sounds, no wheezes or crackles. Abdomen: Soft, non-tender, no rigidity. Extremities: No deformity, no edema or tenderness, no joint swelling or clubbing. Neurological: Normal cognition and motor skills. Pulses: Carotid and radial pulses normal +2. EKG: Date- 02/05/18 normal sinus rhythm at 89 beats per minute, normal axis, normal intervals, reviewed by myself. IMPRESSION: Viviane Teresa is a 37 year old female. Functional class of I Patient Active Problem List Preoperative examination Morbid obesity (HCC) RANDEE (obstructive sleep apnea) Essential hypertension Patient has the following medical conditions which may affect ashlyn-operative course HTN - Well controlled Morbid Obesity, calculated risk for postoperative venous thromboembolism equals 0.27% RANDEE - Advised to bring CPAP machine to hospital and should begin auto Pap in the postoperative setting, recommend respiratory therapy consult, aggressive incentive spirometry, and should be placed on continuous pulse oximetry Patient has no clinical predictors of increased perioperative cardiovascular risk. Patient is scheduled for a intermediate- risk procedure. Stress test:Not indicated. RCRI None - TOTAL: 0 Beta-celine not indicated due to low overall risk for perioperative cardiovascular event given patient history and nature of planned procedure RECOMMENDATIONS: Patient instructed on the following: Take the following medications the morning of surgery with a small sip of water: Zyrtec, Singulair, Paxil, and Norvasc. To Stop NSAID's (e.g. Motrin,Aleve,Arthrot ec etc) 7 days before surgery. To Stop Aspirin 7 days before surgery. VTE prophylaxis, Early ambulation, Post operative incentive spirometry and See impression area for disease specific recommendations Labs Reviewed and acceptable. This patient is optimally prepared for surgery pending [facility]. Lab Value Units Date High Low HB No results within date range. HCT No results within date range. WBC No results within date range. PLT No results within date range. NA No results within date range. K No results within date range. GLUC No results within date range. BUN No results within date range. CREAT No results within date range. PTSEC No results within date range. INR No results within date range. APTT No results within date range. ALT No results within date range. AST No results within date range. TBILI No results within date range. TSH No results within date range. Lab Value Units Date High Low HCGQT No results within date range. UHCG No results within date range. HCG, BODY* No results within date range. SIGNATURE: Justin Wilcox DO PATIENT NAME: Viviane Teresa DATE: July 30, 2018 TIME: 10:24 AM PAGER/CONTACT #: Referring Provider: HEATH ECHOLS [[id number]] Allergies As of Date: 07/30/2018 (No Known Allergies) Date Reviewed: 07/30/2018 Reviewed by: Ellen Adames Ma - Fully Assessed Reason for Visit: Established Patient [175] Primary Visit Diagnosis:Preoperati ve examination [Z01.818] Other Visit Diagnoses:RANDEE (obstructive sleep apnea) [G47.33] Essential hypertension [I10] Morbid obesity (HCC) [E66.01] Prescriptions as of 07/30/2018 Sig: DIPHENHYDRAMINE 25 MG CAPSULE BUDESONIDE-FORMOTERO L HFA 80 * Inhale as instructed. CETIRIZINE 10 MG TABLET Take 10 mg by mouth. MONTELUKAST 10 MG TABLET Take 10 mg by mouth. MULTIPLE VITAMINS ORAL Take by mouth. PAROXETINE 10 MG TABLET Take 10 mg by mouth. MELOXICAM 15 MG TABLET-IRRITA* FUROSEMIDE 40 MG TABLET Take 40 mg by mouth twice zara* AMLODIPINE 10 MG TABLET Take 10 mg by mouth once danika* Problem List As Of Date 07/30/2018 Noted Resolved RANDEE (obstructive sleep apnea) [G47.33] INVALID FOR* Essential hypertension [I10] INVALID FOR* Morbid obesity (HCC) [E66.01] INVALID FOR* Preoperative examination [Z01.818] INVALID FOR* More... Encounter Status:Closed by JUSTIN WILCOX DO on 07/30/18 Normal [facility] Comp Metabolic Panelon 07-30 Albumin [Mass/Vol] 4.6 g/dL Normal 3.9-4.9 [facility] Comment on above: Performed By: #### C BCDIF, CMP ####[facility], [place] [phone] ALP [Catalytic activity/Vol] 72 U/L Normal 34-123 [facility] Comment on above: Performed By: #### C BCBYRONF, CMP ####[facility] [address], [place] [phone] ALT [Catalytic activity/Vol] 19 U/L Normal 7-38 [facility] Comment on above: Performed By: #### C BCDIF, CMP ####[facility], [place] [phone] Anion gap [Moles/Vol] 19 mmol/L High 9-18 [facility] Comment on above: Performed By: #### C BCDIF, CMP ####[place] [address] [place] [phone] AST [Catalytic activity/Vol] 20 U/L Normal 13-35 [facility] Comment on above: Performed By: #### C BCDIF, CMP ####[place] [address] [place] [phone] Bilirubin [Mass/Vol] 0.3 mg/dL Normal 0.2-1.3 [facility] Comment on above: Performed By: #### C BCDIF, CMP ####[place] [address] [address] [place] [phone] Calcium [Mass/Vol] 9.9 mg/dL Normal 8.5-10.2 [facility] Comment on above: Performed By: #### C BCDIF, CMP ####[place] [address] [address] [place] [phone] Chloride [Moles/Vol] 97 mmol/L Normal 97-105 [facility] Comment on above: Performed By: #### C BCDIF, CMP ####[place] [address] [address] [place] [phone] CO2 [Moles/Vol] 24 mmol/L Normal 22-30 [facility] Comment on above: Performed By: #### C BCDIF, CMP ####[place] [address] [address] [place] [phone] Creatinine [Mass/Vol] 0.74 mg/dL Normal 0.58-0.96 [facility] Comment on above: Performed By: #### C BCDIF, CMP ####[place] [address] [address] [place] [phone] eGFR- Amer. >60 Normal [facility] Comment on above: Performed By: #### C BCDIF, CMP ####[facility] [place], [place] [phone] GFR/1.73 sq M predicted among non-blacks MDRD (S/P/Bld) [Vol rate/Area] mL/min/{1.73_m2} Normal [facility] Comment on above: Result Comment: eGFR (Estimated GFR) Units of measure: mL/min/1.73 meters squared eGFR is derived from the reexpressed MDRD Study equation using the following parameters: serum creatinine, age, gender and race. The creatinine assay has been calibrated to be traceable to IDMS. An eGFR <60 mL/min/1.73m2 for >3 months is consistent with chronic kidney disease. Refer to KDOQI guidelines for clinical interpretation. In patients with unstable renal function, e.g. those with acute kidney injury, the eGFR may not accurately reflect actual GFR. Performed By: #### C BHASKAR, CMP ####[address] [phone] Glucose [Mass/Vol] 93 mg/dL Normal 74-99 [facility] Comment on above: Result Comment: The [place] [employer] (ADA) provides guidance for cutoff values for fasting glucose and random glucose. The ADA defines fasting as no caloric intake for at least 8 hours. Fasting plasma glucose results between 100 to 125 mg/dL indicate increased risk for diabetes (prediabetes). Fasting plasma glucose results greater than or equal to 126 mg/dL meet the criteria for diagnosis of diabetes. In the absence of unequivocal hyperglycemia, results should be confirmed by repeat testing. In a patient with classic symptoms of hyperglycemia or hyperglycemic crisis, random plasma glucose results greater than or equal to 200 mg/dL meet the criteria for diagnosis of diabetes. Reference: Standards of Medical Care in Diabetes 2016, [place] [employer]. Diabetes Care. 2016.39(Suppl 1). Performed By: #### C BHASKAR, CMP ####[place] [id number] [place], [place] [phone] Potassium [Moles/Vol] 3.9 mmol/L Normal 3.7-5.1 [facility] Comment on above: Performed By: #### C BHASKAR CMP ####[place] [id number] [place], [place] [phone] Protein [Mass/Vol] 8.0 g/dL Normal 6.3-8.0 [facility] Comment on above: Performed By: #### C BCDIF, CMP ####[address] [phone] Sodium [Moles/Vol] 140 mmol/L Normal 136-144 [facility] Comment on above: Performed By: #### C BCDIF, CMP ####[address] [phone] Urea nitrogen [Mass/Vol] 13 mg/dL Normal 7-21 [facility] Comment on above: Performed By: #### C BCDIF, CMP ####[address] [phone] Confirm Blood Typeon 019 ABO/RH(D) Positive Normal [facility] Comment on above: Performed By: #### C ONABO ####[address] [phone] PROGRESSon 07-30-2018 PROGRESS HNO ID: [id number] Author: Heath Echols Service: (none) Author Type: Physician Type: Progress Notes Filed: 07/30/2018 1:52 PM Note Text: BARIATRIC SURGERY PREOPERATIVE VISIT NOTE Name: Viviane Teresa Medical Record: [id number] Encounter No.: [id number] Viviane Teresa is a 37 year old female seen in Bariatric Surgery clinic today for their final preoperative assessment. WEIGHT Current Wt/BMI: Body mass index is 51.73 kg/m?. Initial weight/BMI: 308 lb Planned Procedure: Laparoscopic Parker en-Y Gastric Bypass PAST MEDICAL HISTORY: PAST MEDICAL HISTORY Diagnosis Date - Hypertension - Obstructive sleep apnea PAST SURGICAL HISTORY: No past surgical history on file. SOCIAL HISTORY: Social History Substance Use Topics - Smoking status: Never Smoker - Smokeless tobacco: Never Used - Alcohol use Not on file ALLERGIES: ALLERGIES No Known Allergies MEDICATIONS: Prior to Admission Medications: diphenhydrAMINE (BENADRYL) 25 mg capsule budesonide-formotero l (SYMBICORT) 80-4.5 mcg/actuation inhaler Inhale as instructed. cetirizine (ZYRTEC) 10 mg tablet Take 10 mg by mouth. montelukast (SINGULAIR) 10 mg tablet Take 10 mg by mouth. multivitamin (MULTIPLE VITAMINS ORAL) Take by mouth. PARoxetine (PAXIL) 10 mg tablet Take 10 mg by mouth. Meloxicam AND Irritant Cntr #2 15 mg kit furosemide (LASIX) 40 mg tablet Take 40 mg by mouth twice daily. amLODIPine (NORVASC) 10 mg tablet Take 10 mg by mouth once daily. oxyCODONE (ROXICODONE) 5 mg/5 mL oral solution Take 5 mL by mouth every 6 hours as needed for up to 7 days. famotidine (PEPCID) 20 mg tablet Take 1 tablet by mouth twice daily. scopolamine (TRANSDERM-SCOP) patch 1.5 mg/72 hr Apply 1 Patch as directed every 72 hours for 7 days. ursodiol (CHELA 250) 250 mg tablet Take 1 tablet by mouth three times daily. ondansetron orally disintegrating (ZOFRAN ODT) 4 mg disintegrating tablet Take 1 tablet by mouth every 8 hours as needed for Nausea/Vomiting. No current hospital medications on file. VISIT NOTE This patient was seen in clinic today to obtain informed consent, to discuss the details of their upcoming operation including the appropriate expectations for perioperative and postoperative care. In addition, preoperative and postoperative relevant prescriptions were provided and explained during this clinic visit. The consent discussion included the risks, benefits and anticipated outcomes of the procedure, the risks and benefits of the alternatives to the procedure, and the roles and tasks of the personnel to be involved. The patient had an opportunity to ask additional questions that were answered. The patient expressed that they understood. A consent form was signed today. Prescriptions were explained and provided to the patient. Postoperative VTE risk is .27% according to Sleeve Risk Calculator. ? Checklist Items Completed Not Completed Preoperative H AND P Y Preoperative labs (including fasting glucose, blood typing and A1C) Y Preoperative cardiac work-up (EKG / ECHO) Y GI evaluation (UGI / EGD) if needed NA Pulmonary evaluation (Patient to bring CPAP mask day of surgery) Y Consult placed for difficult IV access if needed NA Postoperative medications prescribed Y Nutrition evaluation Y Psychosocial evaluation Y NORMA and preop videos confirmation Y Stop OCP's, Aspirin, Anticoagulation prior to surgery Y-stopped meloxicam Smoking cessation - Urine cotinine ordered if needed NA Planned post op ICU admission N ? Chicho Ku MD Bariatric Surgery Fellow STAFF NOTE I have seen and evaluated the patient and discussed the case with the resident physician. I agree with the assessment and plan as documented in the resident?s note. Heath Echols MD [facility] PROGRESS HNO ID: [id number] Author: Marie (Rn) BESSIE Guidry Service: (none) Author Type: Registered Nurse Type: Progress Notes Filed: 08/05/2018 9:13 AM Note Text: ANESTHESIA PRE-OPERATIVE ASSESSMENT (PACE) SERVICE DATE: 07/30/2018 SERVICE TIME: 1152 ASSESSMENT AND PLAN: Viviane Teresa is a 37 year old female scheduled for LAPAROSCOPIC GASTRIC RESTRICTIVE SURG W/ BYPASS AND PARKER-EN-Y per Surgery Request Case in MAIN on 08/08/2018. PMH: Morbid obesity HTN-norvasc Asthma- well controlled-zyrtec, Singulair, Symbicort RANDEE-cpap Piero Knee pain r/t OA- mobic last dose 07/24/18 Depression- Paxil [facility]: 4 METS: Do moderate work around the house such as vacuuming, sweeping floors, or carrying in groceries (3.50 METs) Patient denies any chest pain or undue shortness of breath with the above physical activity. 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 Patient WILL accept blood products. BLOOD WORK/PRODUCTS ORDERED: Type and Screen , Con ABO HISTORY OF CHRONIC PAIN: No PAIN MANAGEMENT OPTIONS: Routine/PRN IV, TAPS and Final pain management plan will be discussed on the day of surgery. ANESTHETIC OPTIONS: General and Final anesthesia management options will be discussed on day of surgery. PRE-OP PLAN ORDERED: Not Applicable Patient Instructed: ? No solid food or non-clear liquids after midnight. Clear liquids allowed until two hours before scheduled arrival. ? Patient instructed to take the following medications with a sip of water: paxil, norvasc, singulair, symbicort, zyrtec, bring CPAP Vital Signs: BP 142/86 (BP Site: Right Arm, BP Position: Sitting, BP Cuff Size: Large Adult) Pulse 92 Ht 164.5 cm (5' 4.76 ) Wt (!) 139.7 kg (307 lb 15.7 oz) SpO2 98% BMI 51.63 kg/m? BMI 51.62 kg/(m2) Vital signs completed by: Surgical Services Weight acquired: per HANDP. Height acquired: per HANDP Airway Exam: MOUTH OPENING/TMJ: Full jaw ROM MICROGNATHIA/OVERBIT E: No MALLAMPATI SCORE is CLASS II UPPER LIP BITE TEST: Class II - Lower incisors can bite the upper lip below the alysia line DENTITION: Intact THYROMENTAL DIST: WNL SHORT NECK: No NECK CIRCUMFERENCE >40 cm: Appears > than 40 CM and Neck Circumference measured at 42 cm NECK FLEX: Full ROM NECK EXTENSION: Full ROM AIRWAY HISTORY: No abnormal airway history ARKS AIRWAY DETAIL: N/A DATA: EKG READING: Confirmed - 02/17/18 NSR, nl EKG OSR OTHER TESTS: N/A Lab Value Units Date High Low HB No results within date range. HCT No results within date range. WBC No results within date range. PLT No results within date range. NA No results within date range. K No results within date range. GLUC No results within date range. BUN No results within date range. CREAT No results within date range. PTSEC No results within date range. INR No results within date range. APTT No results within date range. ALT No results within date range. AST No results within date range. TBILI No results within date range. TSH No results within date range. Lab Value Units Date High Low HCGQT No results within date range. UHCG No results within date range. HCG, BODY* No results within date range. ABORHD No results within date range. ABSCREEN No results within date range. HBA1C: Hemoglobin A1C (%) Date Value 02/18/2018 5.7 ) Patient accompanied by self Case Discussed with Dr Haddad OPTIMIZATION STATUS: Patient optimization pending Labs IMPACT and PACE(TANDS only) Addendum: LUCHO Quezada RN ABO/RH(D) Date Value Ref Range Status 07/30/2018 A POSITIVE Final Antibody Screen Date Value Ref Range Status 07/30/2018 NEG Final SIGNATURE: Marie Guidry RN PATIENT NAME: Viviane Teresa DATE: July 30, 2018 TIME: 11:52 AM [facility] PRO[facility]ESS HNO ID: [id number] Author: Justin Wilcox Service: (none) Author Type: Physician Type: Progress Notes Filed: 07/30/2018 10:53 AM Note Text: BARIATRIC HANDP/PRE-OPERATIVE CONSULT SERVICE DATE: 07/30/2018 SERVICE TIME: 1024AM PRE-OPERATIVE MEDICAL CONSULTATION Consultation requested by Dr. Echols for an opinion regarding preoperative evaluation for upcoming surgery . My final recommendations will be communicated back to the requesting physician by the way of shared medical record. The procedure planned is: LRYGB, 08/08/18 The condition requiring this surgery is causing these symptoms: Other: obesity The patient has following co-morbid condition(s) Hypertension Sleep Apnea Morbid Obesity BP 142/86 (BP Site: Right Arm, BP Position: Sitting, BP Cuff Size: Large Adult) Pulse 92 Ht 164.5 cm (5' 4.77 ) Wt (!) 139.7 kg (308 lb) SpO2 98% BMI 51.62 kg/m? Body mass index is 51.62 kg/m?. MEDICATIONS AND ALLERGIES REVIEWED. Family history -Patients family history is negative for VTE Patient's Past Social histories have been reviewed with the patient, and updated as appropriate. Please see relevant sections in [facility] EHR for details. FUNCTIONAL STATUS: Do heavy work around the house, such as scrubbing floors, lifting or moving heavy furniture (8.00 METs) Patient's functional class is I based on self-reported physical activity. Significant Anesthesia Considerations: None PAST MEDICAL HISTORY Diagnosis Date - Hypertension - Obstructive sleep apnea Asthma No history of LA, COPD, peptic ulcer dx, hyperlipidemia, gallstones, hypothyroidism, hypertension, cancer, DVT, PE, CVA, T2DM, gout, kidney stones, CKD and smoking history. PSH: Hysterectomy, arthroscopy, bilateral carpal tunnel, deviated septum repair x 3, and 2 c-sections No family history on file. Social History Substance Use Topics - Smoking status: Never Smoker - Smokeless tobacco: Never Used - Alcohol use Not on file Current Outpatient Prescriptions: diphenhydrAMINE (BENADRYL) 25 mg capsule budesonide-formotero l (SYMBICORT) 80-4.5 mcg/actuation inhaler Inhale as instructed. cetirizine (ZYRTEC) 10 mg tablet Take 10 mg by mouth. montelukast (SINGULAIR) 10 mg tablet Take 10 mg by mouth. multivitamin (MULTIPLE VITAMINS ORAL) Take by mouth. PARoxetine (PAXIL) 10 mg tablet Take 10 mg by mouth. Meloxicam AND Irritant Cntr #2 15 mg kit furosemide (LASIX) 40 mg tablet Take 40 mg by mouth twice daily. amLODIPine (NORVASC) 10 mg tablet Take 10 mg by mouth once daily. No current facility-administere d medications for this visit. ALLERGIES No Known Allergies REVIEW OF SYSTEMS: General: No weight loss, malaise or fevers. Neuro: No history of TIA's, stroke, RN FAMILY PRACTICE tumor, impaired sensorium, hemiplegia, paraplegia or quadriplegia. No neurological symptoms or problems. Respiratory: Obstructive Sleep Apnea (on CPAP) Asthma under good control. Cardiovascular: Hypertension requiring meds GI: No history of GI symptoms or problems. No history of esophageal varices, recent ascites, or ETOH greater than 2 drinks per day. : No history of UTI in past 6 weeks. No history of renal failure. Not currently on or requiring dialysis. No history of symptoms or problems. 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 Has not taken steroids within the past 30 days. No history of endocrinological symptoms or problems. Hematology: No history of bleeding or clotting disorder. No history of hematological symptoms or problems. Oncology: No history of CA metastasis, chemo within 30 days, or radiotherapy within 90 days. No history of oncological symptoms or problems. Psych: No history of psychiatric symptoms or problems. Skin: Negative for lesions, rash, and itching. Objective PHYSICAL EXAM: VITALS: BP 142/86 Pulse 92 Ht 5' 4.77 (1.65m) Wt 308 lb (139.7kg) SpO2 98% BMI 51.63 kg/(m2). Repeat BP 124/82 Mahyb-rx-Lab Ratio = n/a General: Alert and oriented Skin: Normal color, no rash, no lesions. HEENT: EOM, pupils equal, round and reactive. Cardiovascular: Normal S1 AND S2, no rubs, murmurs or gallops. No JVD. Pulse regular. Lungs: Normal breath sounds, no wheezes or crackles. Abdomen: Soft, non-tender, no rigidity. Extremities: No deformity, no edema or tenderness, no joint swelling or clubbing. Neurological: Normal cognition and motor skills. Pulses: Carotid and radial pulses normal +2. EKG: Date- 02/05/18 normal sinus rhythm at 89 beats per minute, normal axis, normal intervals, reviewed by myself. IMPRESSION: Viviane Teresa is a 37 year old female. Functional class of I Patient Active Problem List Preoperative examination Morbid obesity (HCC) RANDEE (obstructive sleep apnea) Essential hypertension Patient has the following medical conditions which may affect ashlyn-operative course HTN - Well controlled Morbid Obesity, calculated risk for postoperative venous thromboembolism equals 0.27% RANDEE - Advised to bring CPAP machine to hospital and should begin auto Pap in the postoperative setting, recommend respiratory therapy consult, aggressive incentive spirometry, and should be placed on continuous pulse oximetry Patient has no clinical predictors of increased perioperative cardiovascular risk. Patient is scheduled for a intermediate- risk procedure. Stress test:Not indicated. RCRI None - TOTAL: 0 Beta-celine not indicated due to low overall risk for perioperative cardiovascular event given patient history and nature of planned procedure RECOMMENDATIONS: Patient instructed on the following: Take the following medications the morning of surgery with a small sip of water: Zyrtec, Singulair, Paxil, and Norvasc. To Stop NSAID's (e.g. Motrin,Aleve,Arthrot ec etc) 7 days before surgery. To Stop Aspirin 7 days before surgery. VTE prophylaxis, Early ambulation, Post operative incentive spirometry and See impression area for disease specific recommendations Labs Reviewed and acceptable. This patient is optimally prepared for surgery pending [facility]. Lab Value Units Date High Low HB No results within date range. HCT No results within date range. WBC No results within date range. PLT No results within date range. NA No results within date range. K No results within date range. GLUC No results within date range. BUN No results within date range. CREAT No results within date range. PTSEC No results within date range. INR No results within date range. APTT No results within date range. ALT No results within date range. AST No results within date range. TBILI No results within date range. TSH No results within date range. Lab Value Units Date High Low HCGQT No results within date range. UHCG No results within date range. HCG, BODY* No results within date range. SIGNATURE: Justin Wilcox DO PATIENT NAME: Viviane Teresa DATE: July 30, 2018 TIME: 10:24 AM PAGER/CONTACT #: Normal [facility] Type and SCR (30D)on 019 ABO/RH(D) Positive Normal [facility] Comment on above: Performed By: #### T SCR30 ####[facility] [address] [place], [place] [phone] HOSPon 06-26-2018 HOSP Patient:Katy Teresa MRN: Height:5' 4.7 (1.643 m) Weight:308 lb (139.708 kg) Outpatient Medications as of 08/05/18: oxyCODONE (ROXICODONE) 5 mg/5 mL oral solution famotidine (PEPCID) 20 mg tablet scopolamine (TRANSDERM-SCOP) patch 1.5 mg/72 hr ursodiol (CHELA 250) 250 mg tablet ondansetron orally disintegrating (ZOFRAN ODT) 4 mg disintegrating tablet diphenhydrAMINE (BENADRYL) 25 mg capsule budesonide-formotero l (SYMBICORT) 80-4.5 mcg/actuation inhaler cetirizine (ZYRTEC) 10 mg tablet montelukast (SINGULAIR) 10 mg tablet multivitamin (MULTIPLE VITAMINS ORAL) PARoxetine (PAXIL) 10 mg tablet Meloxicam AND Irritant Cntr #2 15 mg kit furosemide (LASIX) 40 mg tablet amLODIPine (NORVASC) 10 mg tablet Admission/Clinic Administered Medications as of 08/05/18: heparin 5,000 Units injection lactated ringers infusion ceFAZolin 3 g in D5W 100 mL (ANCEF) scopolamine 1 mg over 3 days 1 Patch (TRANSDERM-SCOP) scopolamine - REMOVE PATCH scopolamine - VERIFY patch Problem List: RANDEE (obstructive sleep apnea) [G47.33] Essential hypertension [I10] Morbid obesity (HCC) [E66.01] Preoperative examination [Z01.818] Acute postoperative pain [G89.18] Obesity, Class III, BMI >= 40 [E66.01] Allergies: No Known Allergies Date Verified:08/05/18 Lab Values Lab Value Units Date High Low POTA* 3.9 mmol/L 07/30/2018 5.1 3.7 PAULIE* 45.7 % 07/30/2018 46.0 36.0 Progress Notes (BMI MAIN): Ellen Adames Ma 07/30/2018 12:29 PM Signed Body mass index is 51.73 kg/m?. Heath Echosl MD 07/30/2018 1:52 PM Signed BARIATRIC SURGERY PREOPERATIVE VISIT NOTE Name: Viviane Teresa Medical Record: [id number] Encounter No.: [id number] Viviane Teresa is a 37 year old female seen in Bariatric Surgery clinic today for their final preoperative assessment. WEIGHT Current Wt/BMI: Body mass index is 51.73 kg/m?. Initial weight/BMI: 308 lb Planned Procedure: Laparoscopic Parker en-Y Gastric Bypass PAST MEDICAL HISTORY: PAST MEDICAL HISTORY Diagnosis Date - Hypertension - Obstructive sleep apnea PAST SURGICAL HISTORY: No past surgical history on file. SOCIAL HISTORY: Social History Substance Use Topics - Smoking status: Never Smoker - Smokeless tobacco: Never Used - Alcohol use Not on file ALLERGIES: ALLERGIES No Known Allergies MEDICATIONS: Prior to Admission Medications: diphenhydrAMINE (BENADRYL) 25 mg capsule budesonide-formotero l (SYMBICORT) 80-4.5 mcg/actuation inhaler Inhale as instructed. cetirizine (ZYRTEC) 10 mg tablet Take 10 mg by mouth. montelukast (SINGULAIR) 10 mg tablet Take 10 mg by mouth. multivitamin (MULTIPLE VITAMINS ORAL) Take by mouth. PARoxetine (PAXIL) 10 mg tablet Take 10 mg by mouth. Meloxicam AND Irritant Cntr #2 15 mg kit furosemide (LASIX) 40 mg tablet Take 40 mg by mouth twice daily. amLODIPine (NORVASC) 10 mg tablet Take 10 mg by mouth once daily. oxyCODONE (ROXICODONE) 5 mg/5 mL oral solution Take 5 mL by mouth every 6 hours as needed for up to 7 days. famotidine (PEPCID) 20 mg tablet Take 1 tablet by mouth twice daily. scopolamine (TRANSDERM-SCOP) patch 1.5 mg/72 hr Apply 1 Patch as directed every 72 hours for 7 days. ursodiol (CHELA 250) 250 mg tablet Take 1 tablet by mouth three times daily. ondansetron orally disintegrating (ZOFRAN ODT) 4 mg disintegrating tablet Take 1 tablet by mouth every 8 hours as needed for Nausea/Vomiting. No current hospital medications on file. VISIT NOTE This patient was seen in clinic today to obtain informed consent, to discuss the details of their upcoming operation including the appropriate expectations for perioperative and postoperative care. In addition, preoperative and postoperative relevant prescriptions were provided and explained during this clinic visit. The consent discussion included the risks, benefits and anticipated outcomes of the procedure, the risks and benefits of the alternatives to the procedure, and the roles and tasks of the personnel to be involved. The patient had an opportunity to ask additional questions that were answered. The patient expressed that they understood. A consent form was signed today. Prescriptions were explained and provided to the patient. Postoperative VTE risk is .27% according to Sleeve Risk Calculator. ? Checklist Items Completed Not Completed Preoperative H AND P Y Preoperative labs (including fasting glucose, blood typing and A1C) Y Preoperative cardiac work-up (EKG / ECHO) Y GI evaluation (UGI / EGD) if needed NA Pulmonary evaluation (Patient to bring CPAP mask day of surgery) Y Consult placed for difficult IV access if needed NA Postoperative medications prescribed Y Nutrition evaluation Y Psychosocial evaluation Y NORMA and preop videos confirmation Y Stop OCP's, Aspirin, Anticoagulation prior to surgery Y-stopped meloxicam Smoking cessation - Urine cotinine ordered if needed NA Planned post op ICU admission N ? Chicho Ku MD Bariatric Surgery Fellow STAFF NOTE I have seen and evaluated the patient and discussed the case with the resident physician. I agree with the assessment and plan as documented in the resident?s note. Heath Echols MD Previous Version Progress Notes ([facility]): Marie Guidry, RN, RN 07/30/2018 12:09 PM Addendum ANESTHESIA PRE-OPERATIVE ASSESSMENT (PACE) SERVICE DATE: 07/30/2018 SERVICE TIME: 1152 ASSESSMENT AND PLAN: Viviane Teresa is a 37 year old female scheduled for LAPAROSCOPIC GASTRIC RESTRICTIVE SURG W/ BYPASS AND PARKER-EN-Y per Surgery Request Case in MAIN on 08/08/2018. PMH: Morbid obesity HTN-norvasc Asthma- well controlled-zyrtec, Singulair, Symbicort RANDEE-cpap Piero Knee pain r/t OA- mobic last dose 07/24/18 Depression- Paxil [facility]: 4 METS: Do moderate work around the house such as vacuuming, sweeping floors, or carrying in groceries (3.50 METs) Patient denies any chest pain or undue shortness of breath with the above physical activity. 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 Patient WILL accept blood products. BLOOD WORK/PRODUCTS ORDERED: Type and Screen , Con ABO HISTORY OF CHRONIC PAIN: No PAIN MANAGEMENT OPTIONS: Routine/PRN IV, TAPS and Final pain management plan will be discussed on the day of surgery. ANESTHETIC OPTIONS: General and Final anesthesia management options will be discussed on day of surgery. PRE-OP PLAN ORDERED: Not Applicable Patient Instructed: ? No solid food or non-clear liquids after midnight. Clear liquids allowed until two hours before scheduled arrival. ? Patient instructed to take the following medications with a sip of water: paxil, norvasc, singulair, symbicort, zyrtec, bring CPAP Vital Signs: BP 142/86 (BP Site: Right Arm, BP Position: Sitting, BP Cuff Size: Large Adult) Pulse 92 Ht 164.5 cm (5' 4.76 ) Wt (!) 139.7 kg (307 lb 15.7 oz) SpO2 98% BMI 51.63 kg/m? BMI 51.62 kg/(m2) Vital signs completed by: Surgical Services Weight acquired: per HANDP. Height acquired: per HANDP Airway Exam: MOUTH OPENING/TMJ: Full jaw ROM MICROGNATHIA/OVERBIT E: No MALLAMPATI SCORE is CLASS II UPPER LIP BITE TEST: Class II - Lower incisors can bite the upper lip below the alysia line DENTITION: Intact THYROMENTAL DIST: WNL SHORT NECK: No NECK CIRCUMFERENCE >40 cm: Appears > than 40 CM and Neck Circumference measured at 42 cm NECK FLEX: Full ROM NECK EXTENSION: Full ROM AIRWAY HISTORY: No abnormal airway history ARKS AIRWAY DETAIL: N/A DATA: EKG READING: Confirmed - 9/10/18 NSR, nl EKG OSR OTHER TESTS: N/A Lab Value Units Date High Low HB No results within date range. HCT No results within date range. WBC No results within date range. PLT No results within date range. NA No results within date range. K No results within date range. GLUC No results within date range. BUN No results within date range. CREAT No results within date range. PTSEC No results within date range. INR No results within date range. APTT No results within date range. ALT No results within date range. AST No results within date range. TBILI No results within date range. TSH No results within date range. Lab Value Units Date High Low HCGQT No results within date range. UHCG No results within date range. HCG, BODY* No results within date range. ABORHD No results within date range. ABSCREEN No results within date range. HBA1C: Hemoglobin A1C (%) Date Value 02/18/2018 5.7 ) Patient accompanied by self Case Discussed with Dr Haddad OPTIMIZATION STATUS: Patient optimization pending Labs IMPACT and PACE(TANDS only) Addendum: LUCHO Quezada RN ABO/RH(D) Date Value Ref Range Status 07/30/2018 A POSITIVE Final Antibody Screen Date Value Ref Range Status 07/30/2018 NEG Final SIGNATURE: Marie Guidry RN PATIENT NAME: Viviane Teresa DATE: July 30, 2018 TIME: 11:52 AM PAGER/CONTACT #: Previous Version Normal [facility] PROGRESSon 06-26-2018 PROGRESS HNO ID: [id number] Author: Nkechi Menjivar (Rn) BESSIE Lopez Service: (none) Author Type: Registered Nurse Type: Progress Notes Filed: 06/26/2018 3:23 PM Note Text: . Normal [facility] Toxicology Screen,Uron 06-25 Amphetamines, Urine Negative Normal Negative [facility] Comment on above: Result Comment: Cuto ff threshold at 1000 ng/mL. Performed By: #### U TOX2 ####[facility] [address] [place], [place] [phone] Barbiturates, Urine Negative Normal Negative [facility] Comment on above: Result Comment: Cuto ff threshold at 200 ng/mL. Performed By: #### U TOX2 ####[place] [address] [place] [phone] Benzodiazepines, Ur Negative Normal Negative [facility] Comment on above: Result Comment: Cuto ff threshold at 200 ng/mL. Performed By: #### U TOX2 ####[place] [address] [place] [place] [phone] Cannabinoids, Urine Negative Normal Negative [facility] Comment on above: Result Comment: Cuto ff threshold at 50 ng/mL. Performed By: #### U TOX2 ####[place] [phone] Cocaine, Urine Negative Normal Negative [facility] Comment on above: Result Comment: Cuto ff threshold at 300 ng/mL. Performed By: #### U TOX2 ####[place] [address] [place] [phone] Ethanol, Urine <11 Normal <11 [facility] Comment on above: Performed By: #### U TOX2 ####[place] [phone] Opiates, Urine Negative Normal Negative [facility] Comment on above: Result Comment: Cuto ff threshold at 300 ng/mL. Performed By: #### U TOX2 ####[place] [phone] Oxycodone, Urine Negative Normal Negative [facility] Comment on above: Result Comment: Cuto ff threshold at 100 ng/mL. Comment: Immunoassay screen only. Cross reactivity with other substances can occur with immunoassay screening. Detection of any drug(s) in this urine toxicology panel is presumptive only. These tests are for medical purposes only and should not be used for compliance monitoring, legal, or forensic use. Samples should be within normal physiological conditions (e.g. pH). This assay does not include adulteration/specimen validity testing. In clinical settings, confirmatory testing is at the practitioner's discretion [1]. If clinically indicated, confirmation by high specificity, quantitative methodology, which includes adulteration/specimen validity testing, may be requested on the same specimen through Client Services ([phone]) if contacted within 48 hours of initial testing. [1]Substance Abuse and Mental Health Services Administration (2012). Clinical Drug Testing in Primary Care Technical Assistance Publication Series 32. Department of Health and Human Services, [place], p.10. These tests were developed and their performance characteristics determined by [facility]'s [facility] [place] ([facility]). They have not been cleared or approved by the FDA. [facility] is regulated under CLIA as qualified to perform high complexity testing. These tests are used for clinical purposes. They should not be regarded as investigational or for research. Performed By: #### U TOX2 ####[facility] [address] [place], [place] [phone] Phencyclidine, Urine Negative Normal Negative [facility] Comment on above: Result Comment: Cuto ff threshold at 25 ng/mL. Performed By: #### U TOX2 ####[facility] [place], [place] [phone] CNOVon 06-23-2018 CNOV Office Visit (GEN[facility]) VIVIANE TERESA ([id number]) 1980 F Date Time Provider Department 06/23/18 12:00 PM SHAHLA RODRIGUEZ (COORD) [facility] During your visit today, we recorded the following information about you: Pulse Blood pressure Weight Height 82/minute 138/84 149.2 kg 1.645 m Shahla Rodriguez Coord 06/30/2018 1:55 PM Signed INFORMED CONSENT STUDY TITLE: Mechanisms that Predict Weight Trajectory after Bariatric Surgery: The Interactive Roles of Behavior and Biology IRB NO.: [id number] ? SPRAY APPLICATOR:?Charlene Wooten, PhD ? COORDINATOR/Research Nurse/Chalk Extruding Machine Operator:? Shahla Rodriguez Pager:? ? Prior to consent discussion, the patient?s medical record was reviewed for evidence of participation in other clinical research studies.? Patient was asked about participation in other studies and states that he is not enrolled in any other research study. Presentation start time: 12:05 pm ? Discussed above research protocol with patient and consent form had been previously mailed to patient and it was reviewed prior to visit and during today's visit.? The risks, benefits, alternatives, and costs were discussed.? The study requirements and follow up procedures were reviewed and the importance of follow up compliance was stressed.? All patient questions were addressed and answered.? Patient has read and understands the study procedures and requirements.? Patient has agreed to proceed with trial participation and consent signed at 12:25 pm ? Patient declined copy of the signed consent. Patient enrolled in the Mechanisms that Predict Weight Trajectory after Bariatric Surgery: The Interactive Roles of Behavior and Biology Study BASELINE VISIT The following procedures will be performed at the Baseline Visit Inclusion and Exclusion: Done Anthropometric Measures and Vital Status: Done Weight Sitting BP Medical History: Done Body mass index is 55.14 kg/m?. Contact Information: Done Income/Education/Rac e/Martial Status: Done Consent: Done [facility]: Done Dr. Locke scheduled: 07/02/2018 @ 5:00 pm [facility] Assessments: Done Liquid Diet Start Date: 07/25/2018 Central Laboratory Tests (Urine): 1:49 pm Done - results Negative for all Stool Specimen Collected: Patient will collect specimen after 30 days due to recent usage of antibiotics. Above medications reviewed with patient and are correct as listed. Questionnaires completed per protocol. NIH Assessment completed Username and password given for login to [facility] to complete dietary journal starting will complete diary after submitting specimen. Actigraph # [id number] issued, to be worn 24/7 days with the except when in water from 06/23/2018 - 06/30/2018. Patient informed that a complete visit is when the Actigraph is returned and phone assessment completed. I have provided patient with a pre-paid envelope UPS tracking # [phone]. 1 Month Post appointment scheduled for tentatively 09/08/2018 at 10:30 am. Gift Card# [phone] Participant received an additional gift card for her the inconvenience of lab losing urine. Gift card issued # [phone] Shahla Mann Referring Provider: HEATH ECHOLS [[id number]] Allergies As of Date: 06/23/2018 (No Known Allergies) Date Reviewed: 06/23/2018 Reviewed by: Brenda Smith MA - Fully Assessed Primary Visit Diagnosis:Research study patient [Z00.6] Prescriptions as of 06/23/2018 Sig: DIPHENHYDRAMINE 25 MG CAPSULE BUDESONIDE-FORMOTERO L HFA 80 * Inhale as instructed. CETIRIZINE 10 MG TABLET Take 10 mg by mouth. MONTELUKAST 10 MG TABLET Take 10 mg by mouth. MULTIPLE VITAMINS ORAL Take by mouth. PAROXETINE 10 MG TABLET Take 10 mg by mouth. MELOXICAM 15 MG TABLET-IRRITA* FUROSEMIDE 40 MG TABLET Take 40 mg by mouth twice zara* AMLODIPINE 10 MG TABLET Take 10 mg by mouth once danika* Problem List As Of Date 06/23/2018 Noted Resolved RANDEE (obstructive sleep apnea) [G47.33] INVALID FOR* Essential hypertension [I10] INVALID FOR* Morbid obesity (HCC) [E66.01] INVALID FOR* Encounter Status:Closed by SHAHLA HAIRSTON on 06/30/18 [facility] Office Visit (GEN[facility]) VIVIANE TERESA ([id number]) 1980 F Date Time Provider Department 06/23/18 10:00 AM HEATH ECHOLS During your visit today, we recorded the following information about you: Pulse Blood pressure Weight Height 81/minute 139/64 149.2 kg 1.64 m Heath Echols MD 06/23/2018 10:26 AM Signed BARIATRIC SURGERY NEW PATIENT CONSULTATION HISTORY AND PHYSICAL Date: June 23, 2018 Time: 10:25 AM Name: Viviane Teresa This is a 37 year old female with morbid obesity (Body mass index is 55.49 kg/m?.) who presents to clinic for consideration of bariatric surgery. PAST MEDICAL HISTORY: PAST MEDICAL HISTORY Diagnosis Date - Hypertension - Obstructive sleep apnea PAST SURGICAL HISTORY: No past surgical history on file. FAMILY HISTORY: No family history on file. SOCIAL HISTORY: Social History Substance Use Topics - Smoking status: Never Smoker - Smokeless tobacco: Never Used - Alcohol use Not on file MEDICATIONS: Prior to Admission Medications: diphenhydrAMINE (BENADRYL) 25 mg capsule budesonide-formotero l (SYMBICORT) 80-4.5 mcg/actuation inhaler Inhale as instructed. cetirizine (ZYRTEC) 10 mg tablet Take 10 mg by mouth. montelukast (SINGULAIR) 10 mg tablet Take 10 mg by mouth. multivitamin (MULTIPLE VITAMINS ORAL) Take by mouth. PARoxetine (PAXIL) 10 mg tablet Take 10 mg by mouth. Meloxicam AND Irritant Cntr #2 15 mg kit furosemide (LASIX) 40 mg tablet Take 40 mg by mouth twice daily. amLODIPine (NORVASC) 10 mg tablet Take 10 mg by mouth once daily. No current hospital medications on file. ALLERGIES: ALLERGIES No Known Allergies REVIEW OF SYSTEMS: GENERAL: Negative for malaise, significant weight loss and fever NECK: Negative for lumps, goiter, pain and significant neck swelling RESPIRATORY: Negative for cough, wheezing or shortness of breath. CARDIOVASCULAR: Negative for chest pain, leg swelling or palpitations. GI: Negative for abdominal discomfort, blood in stools or black stools or change in bowel habits : No history of dysuria, frequency or incontinence MUSCULOSKELETAL: Negative for joint pain or swelling, back pain or muscle pain. SKIN: Negative for lesions, rash, and itching. PSYCH: Negative for sleep disturbance, mood disorder and recent psychosocial stressors. ENDOCRINE: Negative for cold or heat intolerance, polyuria, polydipsia and goiter. PHYSICAL EXAM: BP 139/64 (BP Site: Left Arm, BP Position: Sitting, BP Cuff Size: Extra Large Adult) Pulse 81 Ht 164 cm (5' 4.57 ) Wt (!) 149.2 kg (329 lb) SpO2 96% BMI 55.49 kg/m? GENERAL: No apparent distress. Pt is alert and oriented x3. Skin: warm Lungs: clear to percussion and auscultation Heart: regular rhythm and S1, S2 normal Abdomen: soft, non-tender, no masses, no organomegaly Extremities: Normal exam of the extremities Assessment IMPRESSION: Viviane Teresa is a 37 year old female with the following diagnosis and co-morbidities: Body mass index is 55.49 kg/m?. Diagnosis noted as above, no additional diagnosis at this time. This patient does meet the criteria for a surgical weight loss procedure according to NIH guidelines. PLAN: The plan of treatment for Viviane Teresa is to continue with the consultations and tests ordered today in hopes of qualifying for pre-operative clearance for bariatric surgery. Patient is interested in: Parker-En-Y Gastric Bypass Heath Echols MD Advanced Laparoscopic and Bariatric Surgery Referring Provider: HEATH ECHOLS [[id number]] Allergies As of Date: 06/23/2018 (No Known Allergies) Date Reviewed: 06/23/2018 Reviewed by: Brenda Smith MA - Fully Assessed Reason for Visit: New Patient [172] Primary Visit Diagnosis:Morbid obesity (HCC) [E66.01] Other Visit Diagnosis:RANDEE (obstructive sleep apnea) [G47.33] Prescriptions as of 06/23/2018 Sig: DIPHENHYDRAMINE 25 MG CAPSULE BUDESONIDE-FORMOTERO L HFA 80 * Inhale as instructed. CETIRIZINE 10 MG TABLET Take 10 mg by mouth. MONTELUKAST 10 MG TABLET Take 10 mg by mouth. MULTIPLE VITAMINS ORAL Take by mouth. PAROXETINE 10 MG TABLET Take 10 mg by mouth. MELOXICAM 15 MG TABLET-IRRITA* FUROSEMIDE 40 MG TABLET Take 40 mg by mouth twice zara* AMLODIPINE 10 MG TABLET Take 10 mg by mouth once danika* Problem List As Of Date 06/23/2018 Noted Resolved RANDEE (obstructive sleep apnea) [G47.33] INVALID FOR* Essential hypertension [I10] INVALID FOR* Morbid obesity (HCC) [E66.01] INVALID FOR* Encounter Status:Closed by HEATH ECHOLS MD on 06/23/18 Normal [facility] PROGRESSon 06-23-2018 PROGRESS HNO ID: [id number] Author: Shahla Rodriguez Coord Service: (none) Author Type: (none) Type: Progress Notes Filed: 06/30/2018 1:55 PM Note Text: INFORMED CONSENT STUDY TITLE: Mechanisms that Predict Weight Trajectory after Bariatric Surgery: The Interactive Roles of Behavior and Biology IRB NO.: [id number] ? SPRAY APPLICATOR:?Charlene oWoten, PhD ? COORDINATOR/Research Nurse/Chalk Extruding Machine Operator:? Shahla Rodriguez Pager:? ? Prior to consent discussion, the patient?s medical record was reviewed for evidence of participation in other clinical research studies.? Patient was asked about participation in other studies and states that he is not enrolled in any other research study. Presentation start time: 12:05 pm ? Discussed above research protocol with patient and consent form had been previously mailed to patient and it was reviewed prior to visit and during today's visit.? The risks, benefits, alternatives, and costs were discussed.? The study requirements and follow up procedures were reviewed and the importance of follow up compliance was stressed.? All patient questions were addressed and answered.? Patient has read and understands the study procedures and requirements.? Patient has agreed to proceed with trial participation and consent signed at 12:25 pm ? Patient declined copy of the signed consent. Patient enrolled in the Mechanisms that Predict Weight Trajectory after Bariatric Surgery: The Interactive Roles of Behavior and Biology Study BASELINE VISIT The following procedures will be performed at the Baseline Visit Inclusion and Exclusion: Done Anthropometric Measures and Vital Status: Done Weight Sitting BP Medical History: Done Body mass index is 55.14 kg/m?. Contact Information: Done Income/Education/Rac e/Martial Status: Done Consent: Done [facility]: Done Dr. Locke scheduled: 07/02/2018 @ 5:00 pm [facility] Assessments: Done Liquid Diet Start Date: 07/25/2018 Central Laboratory Tests (Urine): 1:49 pm Done - results Negative for all Stool Specimen Collected: Patient will collect specimen after 30 days due to recent usage of antibiotics. Above medications reviewed with patient and are correct as listed. Questionnaires completed per protocol. NIH Assessment completed Username and password given for login to [facility] to complete dietary journal starting will complete diary after submitting specimen. Actigraph # [id number] issued, to be worn 24/7 days with the except when in water from 06/23/2018 - 06/30/2018. Patient informed that a complete visit is when the Actigraph is returned and phone assessment completed. I have provided patient with a pre-paid envelope UPS tracking # [id number] [phone] [id number]. 1 Month Post appointment scheduled for tentatively 09/08/2018 at 10:30 am. Gift Card# [phone] Participant received an additional gift card for her the inconvenience of lab losing urine. Gift card issued # [phone] Shahla Rodriguez Coord [facility] PROGRESS HNO ID: [id number] Author: Heath Echols Service: (none) Author Type: Physician Type: Progress Notes Filed: 06/23/2018 10:26 AM Note Text: BARIATRIC SURGERY NEW PATIENT CONSULTATION HISTORY AND PHYSICAL Date: June 23, 2018 Time: 10:25 AM Name: Viviane Teresa This is a 37 year old female with morbid obesity (Body mass index is 55.49 kg/m?.) who presents to clinic for consideration of bariatric surgery. PAST MEDICAL HISTORY: PAST MEDICAL HISTORY Diagnosis Date - Hypertension - Obstructive sleep apnea PAST SURGICAL HISTORY: No past surgical history on file. FAMILY HISTORY: No family history on file. SOCIAL HISTORY: Social History Substance Use Topics - Smoking status: Never Smoker - Smokeless tobacco: Never Used - Alcohol use Not on file MEDICATIONS: Prior to Admission Medications: diphenhydrAMINE (BENADRYL) 25 mg capsule budesonide-formotero l (SYMBICORT) 80-4.5 mcg/actuation inhaler Inhale as instructed. cetirizine (ZYRTEC) 10 mg tablet Take 10 mg by mouth. montelukast (SINGULAIR) 10 mg tablet Take 10 mg by mouth. multivitamin (MULTIPLE VITAMINS ORAL) Take by mouth. PARoxetine (PAXIL) 10 mg tablet Take 10 mg by mouth. Meloxicam AND Irritant Cntr #2 15 mg kit furosemide (LASIX) 40 mg tablet Take 40 mg by mouth twice daily. amLODIPine (NORVASC) 10 mg tablet Take 10 mg by mouth once daily. No current hospital medications on file. ALLERGIES: ALLERGIES No Known Allergies REVIEW OF SYSTEMS: GENERAL: Negative for malaise, significant weight loss and fever NECK: Negative for lumps, goiter, pain and significant neck swelling RESPIRATORY: Negative for cough, wheezing or shortness of breath. CARDIOVASCULAR: Negative for chest pain, leg swelling or palpitations. GI: Negative for abdominal discomfort, blood in stools or black stools or change in bowel habits : No history of dysuria, frequency or incontinence MUSCULOSKELETAL: Negative for joint pain or swelling, back pain or muscle pain. SKIN: Negative for lesions, rash, and itching. PSYCH: Negative for sleep disturbance, mood disorder and recent psychosocial stressors. ENDOCRINE: Negative for cold or heat intolerance, polyuria, polydipsia and goiter. PHYSICAL EXAM: BP 139/64 (BP Site: Left Arm, BP Position: Sitting, BP Cuff Size: Extra Large Adult) Pulse 81 Ht 164 cm (5' 4.57 ) Wt (!) 149.2 kg (329 lb) SpO2 96% BMI 55.49 kg/m? GENERAL: No apparent distress. Pt is alert and oriented x3. Skin: warm Lungs: clear to percussion and auscultation Heart: regular rhythm and S1, S2 normal Abdomen: soft, non-tender, no masses, no organomegaly Extremities: Normal exam of the extremities Assessment IMPRESSION: Viviane Teresa is a 37 year old female with the following diagnosis and co-morbidities: Body mass index is 55.49 kg/m?. Diagnosis noted as above, no additional diagnosis at this time. This patient does meet the criteria for a surgical weight loss procedure according to NIH guidelines. PLAN: The plan of treatment for Viviane Teresa is to continue with the consultations and tests ordered today in hopes of qualifying for pre-operative clearance for bariatric surgery. Patient is interested in: Parker-En-Y Gastric Bypass Heath Echols MD Advanced Laparoscopic and Bariatric Surgery [facility] CNCOon 06-19-2018 CNCO Letter Text Bariatric and Metabolic [place]/ [address] [place] [address] phone: [phone] REFERENCE# [id number] 06/19/2018 Insurance: Home Comfort Zones/DPSI Regarding: Viviane Teresa ID# [id number] CCF #: [id number] INPATIENT PROCEDURE Procedure: Laparoscopic Parker-en-Y Gastric Bypass (CPT code 48454) To Whom It May Concern: We am writing on behalf of the above-referenced patient to seek certification of insurance coverage, confirmation of benefits and benefit pre-certification for Bariatric surgery, specifically, Parker-en-Y Gastric Bypass, to be performed at the [facility]. This surgery is medically necessary for the reasons set forth in this letter, and after careful discussion with this patient, we have determined that the listed procedure is medically appropriate for her multiple health problems. PATIENT?S CONDITION The patient stands 64 inches and weighs 348 lbs., which calculates to a Body Mass Index (BMI) of 58.78. Under the guidelines of the National Institutes of Health this patient suffers from Morbid Obesity (ICD 10 E66.01). The 1990 consensus Conference convened to study Bariatric surgery has determined that surgical intervention is appropriate in persons with a BMI of 40 or greater. Surgery is also medically indicated for persons with a BMI of 35 or higher when serious co-morbid conditions are present or because a patient?s weight interferes with normal life activities. Ms. Teresa suffers from numerous co-morbid conditions as listed below: Hypertension, unspecified and Sleep Apnea . These multiple diagnoses are both serious and potentially life threatening. This patient has been evaluated by our surgical team and is found to be an appropriate candidate for this therapy. Surgical intervention has been demonstrated to provide the only effective therapy available for long-term control of morbid obesity and its related diseases. Ms. Teresa has a long-term history of prior weight loss efforts that have not been successful in maintaining any significant weight loss or long-term health benefits. These efforts include: Low Calorie and High Protein. BACKGROUND ON PARKER-EN-Y GASTRIC BYPASS AND TREATMENT RATIONALE We have reviewed the extensive literature on Parker-en-Y Gastric Bypass and have concluded that this is the best clinical choice for this patient. In addition, the [place] Society for Bariatric Surgery (ASBS) and Society of [place] Gastro[employer] Endoscopic Surgeons (SAGES) have establishes guidelines for the laparoscopic treatment of morbid obesity. The National Institutes of Health (NIH) published Clinical Guidelines on the Identification, Evaluations, and Treatment of Overweight and Obesity in Adults document. The [place] [employer] (ACS) has established recommendations for facilities performing Bariatric surgery. Our practice institutes a multi-disciplinary approach to the surgical treatment of these diseases and has strong experience and excellent outcomes with advanced laparoscopic procedures. Parker-En-Y Gastric Bypass has been demonstrated to be effective in the treatment of morbid obesity and the associated co-morbid conditions of this disease. Attached to this request are references that demonstrate this procedure is safe and effective in treating many co-morbid conditions including those suffered by this patient. Please confirm that this procedure is authorized for reimbursement and that benefits are available for this patient. If you have any questions or concerns, feel free to contact me at . Sincerely, Heath Echols M.D. [facility] CNCOon 06-17-2018 CNCO Letter Text Bariatric and Metabolic [place] [facility] /[place] [address] To whom it may Concern Regarding: Vviiane Teresa MRN number: [id number] : 1980 Medical Clearance Document is a 37 year old female. Estimated body mass index is 55.76 kg/m? as calculated from the following: Height as of 05/30/18: 164 cm (5' 4.57 ). Weight as of 05/30/18: 150 kg (330 lb 9.6 oz).. This individual suffers from the following health and obesity related problems PAST MEDICAL HISTORY Diagnosis Date - Hypertension - Obstructive sleep apnea . This letter is to confirm that Viviane Teresa has been through the [facility] Bariatric and Metabolic [place]?s comprehensive medical screening program. Screening has included lab work, chest x-ray, EKG, metabolic, cardiovascular, pulmonary assessment and optimization of comorbidities. My office visit note with details of the pre-operative screening is attached. Following this assessment it is my medical opinion that Viviane Teresa has been evaluated for cardiopulmonary and metabolic risk and is at acceptable risk for bariatric surgery. has received extensive teaching, information about the procedure, nutritional requirements and the behaviors and choices needed to be successful after bariatric surgery. has verbalized their understanding of the program teaching and is prepared to undergo bariatric surgery to assist with weight loss goals and improvement of health. Viviane Teresa understands that in order to be successful they need to attend routine post-operative visits at 7-10 days, 1 month, 3 months, 6 months, 12 months, 18 months and then yearly for life. Sincerely, Monica Pena Psr Dr. Adwoa Panda MD [facility] CNCNPATEDon 05-30-2018 CNCNPATED Education (GENI) VIVIANE TERESA ([id number]) 1980 F Date Time Provider Department 05/30/18 10:30 AM NKECHI WOODS (LOKI) I Reason for Visit: Patient Education [91] Reassessment [674] Progress Notes: Nkechi Woods RD 05/30/2018 10:49 AM Signed Nutritional Therapy Re-Assessment PAIN: Is the patient having any pain that is interfering with oral / enteral intake? No 0 on a scale of 0 to 10 PROGRESS: Nutrition Intervention (date of last encounter 05/08/2018): 1.??Continue?to not skip meals. 2.??Begin 7125-5442 calorie partial liquid diet (refer to handout) Breakfast: protein shake (200-250 calories, 15+ grams protein) plus 1 piece of fruit Lunch: protein shake (200-250 calories, 15+ grams protein) plus 1 piece of fruit Dinner: 4-5 ounces lean protein, 1 cup starch (bread/pasta/potatoe s/corn/peas), unlimited non starchy vegetables 1 snack (< 150 calories) should contain protein 3.??Continue?physica l activity with a goal of 150 min of aerobic exercise per week. Include 2-3 days of strength exercises 2-3 times/week. 4.??Drink 64 ounces per day water.??Fluids should follow these guidelines:??No carbonation, no caffeine, no calories, no alcohol.? ? Pre-op goal weight:?326# Protein goal: 73-91?grams CHANGES IN TREATMENT: Patient met goal(s): Yes Actions to implement interventions: see assessment CLINICAL IMPRESSIONS: good REVISIONS IN DIAGNOSIS: Diagnosis: has not changed. Allergies: Patient has no known allergies. Medications: Current Outpatient Prescriptions: amLODIPine (NORVASC) 10 mg tablet Take 10 mg by mouth once daily. Disp: Rfl: budesonide-formotero l (SYMBICORT) 80-4.5 mcg/actuation inhaler Inhale as instructed. Disp: Rfl: cetirizine (ZYRTEC) 10 mg tablet Take 10 mg by mouth. Disp: Rfl: furosemide (LASIX) 40 mg tablet Take 40 mg by mouth twice daily. Disp: Rfl: Meloxicam AND Irritant Cntr #2 15 mg kit Disp: Rfl: montelukast (SINGULAIR) 10 mg tablet Take 10 mg by mouth. Disp: Rfl: multivitamin (MULTIPLE VITAMINS ORAL) Take by mouth. Disp: Rfl: PARoxetine (PAXIL) 10 mg tablet Take 10 mg by mouth. Disp: Rfl: No current facility-administere d medications for this visit. (currently taking) Anthropometrics: Height: Last 1 Encounter Ht Readings: Date: Ht: 05/08/2018 164 cm (5' 4.57 ) Current weight: Last 1 Encounter Wt Readings: Date: Wt: 05/20/2018 152.3 kg (335 lb 12.8 oz) Body mass index is 55.76 kg/m?. Resting Metabolic Rate: 2198 NUTRITION ASSESSMENT: Malnutrition Screening Significant unintentional weight loss? No Eating less than 75% of usual intake for more than 2 weeks? No Potential Signs of Inflammation: no identifiable sources RECOMMENDED MALNUTRITION DIAGNOSIS: NO MALNUTRITION IDENTIFIED Educational materials provided: none this visit READINESS TO LEARN Cognitive ability: Alert and oriented Motivation to learn: Eager Interested Family support: Unable to assess - Family not present Instruction provided to: Patient Patient learns best by: Multiple Methods Factors affecting learning: None Physical limitations affecting learning: None Likelihood of Adherence: High Patient presents with 1# weight loss since last visit; notes increased swelling in bilateral legs and takes Lasix daily. Patient continues to be adherent with partial liquid diet (Muscle Milk or Premier) for breakfast and lunch. Main meal remains balanced- includes lean protein and ample non starchy vegetables. Snacks include fruit or raw almonds. Beverage is exclusively water- well over 64 ounces daily and is foods and fluids by 20 minutes. Exercise has been limited due to knee pain; swimming [employer] 2/week (40 minutes), chair exercises as able. At end of session, patient is able to identify pre op full liquid diet as well as all post op vitamins and diet phases. Anticipate good adherence to goals. Patient meets the National Institutes of Health guidelines for weight loss surgery and has [employer] insurance and therefore may be required to complete 6 consecutive months of Nutrition Intervention for clearance for surgery. This is 6 of 6 required visits The patient has been thoroughly evaluated and educated on good dietary practices and is capable of following these guidelines pre- and post surgically. From nutrition standpoint, the patient is cleared for weight loss surgery. If the patient desires, she may continue to follow up with the dietitian on a monthly basis until all surgical requirements are met. Nutrition Diagnosis: Overweight Obesity, related to; decreased energy needs, as evidenced by BMI above normative standard for age and gender. Nutrition Intervention 05/30/2018: Modify type and amount of food eaten at meals and snacks. 1. Practice these: * Eat in this order protein first, vegetable and fruit second and whole grain carbohydrates last. * Separate eating and drinking by 30 minutes * Chew your food 20-30x per bite * Meals should last 30 minutes. 2. Fluids: 64 oz per day minimum No carbonation, no caffeine, no calories, no alcohol. Water, sugar free drink mix, decaf coffee and tea 3. Exercise: 150-250 minutes cardio/aerobic activity/week and 10-20 minutes strength/resistance training 2x per week 4. Vitamin/minerals: (2) children's chewable Multivitamin complete (morning) OR (2) adult Centrum Chewable complete multivitamin, Iron supplement 18mg (morning), Vit B12 1000 mcg sublingual pill or liquid (morning), and calcium citrate w/Vit D 600 mg at lunch and 600 mg at dinner. Additional 2000 IU Vit D3 daily, B complex with 75-100 mg Thiamine 5. Protein: 73 to 91 g per day. Lean meats, fish, low fat dairy - cottage cheese, Cambodian yogurt, light yogurt, cheese, ricotta cheese, nuts, peanut butter, beans/legumes. Eat protein first at all meals. 6. Protein shakes: < 200 calories, < 30 g carbohydrates and > 15 g protein 7. Start the full liquid diet 2 weeks prior to surgery. No solid food. 64 oz per day fluid - 4 Muscle Milk shakes per day 8. Advance your diet as tolerated after surgery. Phase 1-Clear liquid (in hospital only); Phase 2 Full liquids (protein shakes limited to 1/4c per meal, 1c fluids between meals), Phase 3 soft/pureed; high protein foods; Phase 4 high protein foods with added vegetables Pre-op goal weight:?326# Nutrition Monitoring AND Evaluation: 1-2# weight loss per week Criteria: weight check Need for Follow up: 1 month postop Referred/Supervised by: Darshan/Bridger MCCLAIN Billing Type: Re-assess/15 min 2 units SIGNATURE: Nkechi Woods, MS,RD,LD PATIENT NAME: Viviane Teresa DATE: May 30, 2018 TIME: 7:13 AM PAGER: Primary Visit Diagnosis:Morbid obesity (HCC) [E66.01] Other Visit Diagnoses:Dietary counseling and surveillance [Z71.3] RANDEE (obstructive sleep apnea) [G47.33] During your visit today, we recorded the following information about you: Weight Height 150 kg 1.64 m Allergies As of Date: 05/30/2018 (No Known Allergies) Date Reviewed: 05/30/2018 Reviewed by: Nkechi Woods - Fully Assessed Prescriptions as of 05/30/2018 Sig: AMLODIPINE 10 MG TABLET Take 10 mg by mouth once danika* BUDESONIDE-FORMOTERO L HFA 80 * Inhale as instructed. CETIRIZINE 10 MG TABLET Take 10 mg by mouth. FUROSEMIDE 40 MG TABLET Take 40 mg by mouth twice zara* MELOXICAM 15 MG TABLET-IRRITA* MONTELUKAST 10 MG TABLET Take 10 mg by mouth. MULTIPLE VITAMINS ORAL Take by mouth. PAROXETINE 10 MG TABLET Take 10 mg by mouth. Encounter Status:Closed by NKECHI WOODS RD on 05/30/18 [facility] PROGRESSon 05-30-2018 PROGRESS HNO ID: [id number] Author: Nkechi Woods Service: (none) Author Type: Registered Dietitian Type: Progress Notes Filed: 05/30/2018 10:49 AM Note Text: Nutritional Therapy Re-Assessment PAIN: Is the patient having any pain that is interfering with oral / enteral intake? No 0 on a scale of 0 to 10 PROGRESS: Nutrition Intervention (date of last encounter 05/08/2018): 1.??Continue?to not skip meals. 2.??Begin 9149-5940 calorie partial liquid diet (refer to handout) Breakfast: protein shake (200-250 calories, 15+ grams protein) plus 1 piece of fruit Lunch: protein shake (200-250 calories, 15+ grams protein) plus 1 piece of fruit Dinner: 4-5 ounces lean protein, 1 cup starch (bread/pasta/potatoe s/corn/peas), unlimited non starchy vegetables 1 snack (< 150 calories) should contain protein 3.??Continue?physica l activity with a goal of 150 min of aerobic exercise per week. Include 2-3 days of strength exercises 2-3 times/week. 4.??Drink 64 ounces per day water.??Fluids should follow these guidelines:??No carbonation, no caffeine, no calories, no alcohol.? ? Pre-op goal weight:?326# Protein goal: 73-91?grams CHANGES IN TREATMENT: Patient met goal(s): Yes Actions to implement interventions: see assessment CLINICAL IMPRESSIONS: good REVISIONS IN DIAGNOSIS: Diagnosis: has not changed. Allergies: Patient has no known allergies. Medications: Current Outpatient Prescriptions: amLODIPine (NORVASC) 10 mg tablet Take 10 mg by mouth once daily. Disp: Rfl: budesonide-formotero l (SYMBICORT) 80-4.5 mcg/actuation inhaler Inhale as instructed. Disp: Rfl: cetirizine (ZYRTEC) 10 mg tablet Take 10 mg by mouth. Disp: Rfl: furosemide (LASIX) 40 mg tablet Take 40 mg by mouth twice daily. Disp: Rfl: Meloxicam AND Irritant Cntr #2 15 mg kit Disp: Rfl: montelukast (SINGULAIR) 10 mg tablet Take 10 mg by mouth. Disp: Rfl: multivitamin (MULTIPLE VITAMINS ORAL) Take by mouth. Disp: Rfl: PARoxetine (PAXIL) 10 mg tablet Take 10 mg by mouth. Disp: Rfl: No current facility-administere d medications for this visit. (currently taking) Anthropometrics: Height: Last 1 Encounter Ht Readings: Date: Ht: 05/08/2018 164 cm (5' 4.57 ) Current weight: Last 1 Encounter Wt Readings: Date: Wt: 05/20/2018 152.3 kg (335 lb 12.8 oz) Body mass index is 55.76 kg/m?. Resting Metabolic Rate: 2198 NUTRITION ASSESSMENT: Malnutrition Screening Significant unintentional weight loss? No Eating less than 75% of usual intake for more than 2 weeks? No Potential Signs of Inflammation: no identifiable sources RECOMMENDED MALNUTRITION DIAGNOSIS: NO MALNUTRITION IDENTIFIED Educational materials provided: none this visit READINESS TO LEARN Cognitive ability: Alert and oriented Motivation to learn: Eager Interested Family support: Unable to assess - Family not present Instruction provided to: Patient Patient learns best by: Multiple Methods Factors affecting learning: None Physical limitations affecting learning: None Likelihood of Adherence: High Patient presents with 1# weight loss since last visit; notes increased swelling in bilateral legs and takes Lasix daily. Patient continues to be adherent with partial liquid diet (Muscle Milk or Premier) for breakfast and lunch. Main meal remains balanced- includes lean protein and ample non starchy vegetables. Snacks include fruit or raw almonds. Beverage is exclusively water- well over 64 ounces daily and is foods and fluids by 20 minutes. Exercise has been limited due to knee pain; swimming [employer] 2/week (40 minutes), chair exercises as able. At end of session, patient is able to identify pre op full liquid diet as well as all post op vitamins and diet phases. Anticipate good adherence to goals. Patient meets the National Institutes of Health guidelines for weight loss surgery and has [employer] insurance and therefore may be required to complete 6 consecutive months of Nutrition Intervention for clearance for surgery. This is 6 of 6 required visits The patient has been thoroughly evaluated and educated on good dietary practices and is capable of following these guidelines pre- and post surgically. From nutrition standpoint, the patient is cleared for weight loss surgery. If the patient desires, she may continue to follow up with the dietitian on a monthly basis until all surgical requirements are met. Nutrition Diagnosis: Overweight Obesity, related to; decreased energy needs, as evidenced by BMI above normative standard for age and gender. Nutrition Intervention 05/30/2018: Modify type and amount of food eaten at meals and snacks. 1. Practice these: * Eat in this order protein first, vegetable and fruit second and whole grain carbohydrates last. * Separate eating and drinking by 30 minutes * Chew your food 20-30x per bite * Meals should last 30 minutes. 2. Fluids: 64 oz per day minimum No carbonation, no caffeine, no calories, no alcohol. Water, sugar free drink mix, decaf coffee and tea 3. Exercise: 150-250 minutes cardio/aerobic activity/week and 10-20 minutes strength/resistance training 2x per week 4. Vitamin/minerals: (2) children's chewable Multivitamin complete (morning) OR (2) adult Centrum Chewable complete multivitamin, Iron supplement 18mg (morning), Vit B12 1000 mcg sublingual pill or liquid (morning), and calcium citrate w/Vit D 600 mg at lunch and 600 mg at dinner. Additional 2000 IU Vit D3 daily, B complex with 75-100 mg Thiamine 5. Protein: 73 to 91 g per day. Lean meats, fish, low fat dairy - cottage cheese, Cambodian yogurt, light yogurt, cheese, ricotta cheese, nuts, peanut butter, beans/legumes. Eat protein first at all meals. 6. Protein shakes: < 200 calories, < 30 g carbohydrates and > 15 g protein 7. Start the full liquid diet 2 weeks prior to surgery. No solid food. 64 oz per day fluid - 4 Muscle Milk shakes per day 8. Advance your diet as tolerated after surgery. Phase 1-Clear liquid (in hospital only); Phase 2 Full liquids (protein shakes limited to 1/4c per meal, 1c fluids between meals), Phase 3 soft/pureed; high protein foods; Phase 4 high protein foods with added vegetables Pre-op goal weight:?326# Nutrition Monitoring AND Evaluation: 1-2# weight loss per week Criteria: weight check Need for Follow up: 1 month postop Referred/Supervised by: Darshan/Bridger MCCLAIN Billing Type: Re-assess/15 min 2 units SIGNATURE: Nkechi Woods MS,RD,LD PATIENT NAME: Viviane Mckeonkins DATE: May 30, 2018 TIME: 7:13 AM PAGER: Lisa [facility] Jac 05-20-2018 CNOV Office Visit ([facility]) VIVIANE TERESA ([id number]) 1980 F Date Time Provider Department 05/20/18 11:00 AM CHARLENE WO[facility] During your visit today, we recorded the following information about you: Weight 152.3 kg Charlene Wooten, PHD 05/20/2018 11:33 AM Signed [facility] BARIATRIC SURGERY BEHAVIORAL HEALTH EVALUATION DATE OF SERVICE: 05/20/2018 TIME OF SERVICE: 10:45 aM - 11:35 AM [facility]ST C[facility]: [facility] CPT CODE: 45754 Psychiatric diagnostic evaluation BILLING CODE: ENDO PSYL MAIN EMELY8/Sugar DATE OF FIRST SERVICE THIS CYCLE: 05/20/2018 SESSION #: 1 The patient signed the Informed Consent for Psychological Evaluation AND Care Form, and the [facility] center health care insurance benefits, fees for service, emergency procedures, and the limits of confidentiality that may pertain with any given case were discussed with the patient. Ms. Teresa was given a copy of the consent form. IDENTIFYING INFORMATION: Ms. Viviane Teresa is a 37 year old female. She was referred by Dr. Sahu. Ms. Teresa is seeking gastric bypass surgery for morbid obesity. COLLATERAL PARTIES PRESENT: none. MOTIVATION FOR SURGERY / UNDERSTANDING OF PROCEDURE / EXPECTATIONS: Ms. Teresa notes she is motivated for surgery by pain and keeping up with kids. 14 years ago had completed all the steps and right at time of scheduling learned she was . 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 The patient has a excellent understanding of the surgery, risks, and benefits. She has talked with other people who have undergone the procedure. Friends and just ran into HS friend in our waiting room. Specific areas of understanding that should be addressed include n/a. The patient has not attended a weight loss surgery support group. The patient expects to lose 190 lbs. following surgery over 24 months. Wouldn't be disappointed with more realistic goal. Has already lost 25 lbs while in our program. Other expectations include increased energy and decreased pain. Would like to exercise more and keep up with family activities (hiking, camping, [place]). Educated patient regarding expected weight loss after surgical procedure and timeline of weight loss/surgery recovery. CAPACITY TO CONSENT: Ms. Teresa evidences the following concerns regarding capacity to consent: none noted. MEDICAL PROBLEMS ACTIVE PROBLEM LIST Randee (Obstructive Sleep Apnea) Essential Hypertension Asthma OA Past surgeries? Yes. No past surgical history on file. History of psychological complications post-surgery? No although post- depression after second son. MEDICATIONS Current Outpatient Prescriptions: amLODIPine (NORVASC) 10 mg tablet Take 10 mg by mouth once daily. budesonide-formotero l (SYMBICORT) 80-4.5 mcg/actuation inhaler Inhale as instructed. cetirizine (ZYRTEC) 10 mg tablet Take 10 mg by mouth. furosemide (LASIX) 40 mg tablet Take 40 mg by mouth twice daily. Meloxicam AND Irritant Cntr #2 15 mg kit montelukast (SINGULAIR) 10 mg tablet Take 10 mg by mouth. multivitamin (MULTIPLE VITAMINS ORAL) Take by mouth. PARoxetine (PAXIL) 10 mg tablet Take 10 mg by mouth. No current facility-administere d medications for this visit. Started Biotin, B-12, Ca and Fe to get into habit after surgery OTC Benadryl for seasonal allergies Medications were reviewed with patient. ALLERGIES ALLERGIES No Known Allergies EATING/WEIGHT HISTORY: Ms. Teresa was overweight as a child. Her weight at age 17 was 155-160 lbs. Always bigger than friends . The patient reports the following factors as contributing to weight gain: inactivity, , genetic predisposition and convenience eating . The patient reports a family history of obesity. The patient's current weight is 335.8 lbs. Her BMI is 56. The patient has tried weight loss strategies in the past including: Exercise/increased activity, Medications such as Adapex, Weight watchers, Nutrisystem, Atkins and Advocare The patient denies a history of laxative/diuretic use. The patient denies a history of vomiting to lose weight. The patient denies a history of an eating disorder. She has not had treatment for eating disorders in the past. The most pt has lost is 45 lbs using Weight watchers. Patient reports eating 3 meals/day, with 1-2 snacks. The patient describes her eating pattern as: She is adherent with partial liquid diet (Muscle Milk) for breakfast and lunch. Main meal is balanced- consistently lean protein and [address] starch (riced cauliflower). Snacks include portioned out nuts, fruit. Beverage is mostly water and has been consciously foods and fluids. The patient notes caffeine use of 1 cups/day. Soda pop usage is 0 per day. BINGE EATING ASSESSMENT: A. Recurrent episodes of binge eating. An episode is characterized by: 1. Eating a larger amount of food than normal during a short period of time (within any two hour period): No 2. Lack of control over eating during the binge episode (i.e. the feeling that one cannot stop eating): No B. Binge eating episodes are associated with three or more of the followin. Eating until feeling uncomfortably full: No: in past (not even Thanksgiving) 2. Eating large amounts of food when not physically hungry: Yes: I am a stress eater but actively trying to find new habits. 3. Eating much more rapidly than normal: No 4. Eating alone because you are embarrassed by how much you're eating: No 5. Feeling disgusted, depressed, or guilty after overeating: No THREE ASSOCIATED SYMPTOMS MET? No C. Marked distress regarding binge eating is present: No D. Binge eating occurs, on average, at least 1 days a week for three months: No The patient reports 0 binge episodes per week for the past 12 months. E. The binge eating is not associated with the regular use of inappropriate compensatory behavior (i.e. purging, excessive exercise, etc.) and does not occur exclusively during the course of bulimia nervosa or anorexia nervosa.No PATIENT MEETS ABOVE CRITERIA FOR BINGE EATING DISORDER:No The patient reports the following behaviors associated with binge eating: Eats when bored or stressed. Administered BES. On the BES, pt scored 3, reflecting <18 = Minimal binge eating on a measure of binge eating behaviors. The patient shows graze eating behaviors: No: but did in past. recently diagnosed with T2DM and all trigger foods have been removed. Patient notes loss of control with grazing No. Grazing occurs 0 days/week. NIGHT EATING SYNDROME A. Demonstrates a significantly increased intake in the evening and/or nighttime, as evidenced by one or both of the following. 1. At least 25% of food is consumed after the evening meal: No: put did in past; less hungry now that using the Muscle Milk. Also going to bed earlier. 2. At least two episodes of nocturnal eating per week: No B. The clinical picture is characterized by three or more of the followin. Lack of desire to eat in the morning and/or breakfast is skipped four or more mornings per week: No 2. A strong urge to eat between dinner and sleep onset and/or during the night:No 3. Insomnia is present four or more nights per week (onset or maintenance): No 4. Belief one must eat to initiate or return to sleep: No 5. Mood is frequently depressed or worsens in the evening: No C. Marked distress or impairment around night eating is present: No D. Night eating has occurred for at least 3 months: No PATIENT MEETS ABOVE CRITERIA FOR NIGHT EATING SYNDROME: No MENTAL HEALTH HISTORY She is currently prescribed Paxil by PCP which was prescribed for post- depression 9 years ago. Tried to go off but caused irritability. Ms. Teresa has never been an inpatient for a psychiatric reason. The patient has no previous suicide attempts. The patient has no history of self-injurious behavior. The patient has a family history of mental illness including depression in sister (also has chronic pain). The patient denies a history of physical, sexual, or emotional abuse. The results of psychological testing were reviewed during this portion of the evaluation with discussion of test taking approach, any elevations and any strengths. If critical items were present they were reviewed with the patient (see separate testing report for additional details). Describes mood as pretty easy going . The following psychiatric symptoms are noted: Depression: Denies any current symptoms of depression Madeleine: Denies any history of hypomanic or manic episodes. Psychosis: Denies any hallucinations or delusions. Generalized Anxiety Disorder: Denies any symptoms of KARMA Panic: Denies any symptoms of panic. Obsessive Compulsive Disorder: Denies any symptoms of OCD. Post-Traumatic Stress Disorder: Denies any PTSD symptoms The patient has the following level of depression: none. Besides depressive disorders, the patient meets criteria for no discernible disorder(s). SUBSTANCE USE Alcohol Use Disorder Identification Test-C: How often do you drink Alcohol? 2 (2-4x/month); How many drinks containing alcohol do you have on a typical day when you are drinking? 0 ( = 1 or 2 ); How often do you have 5 or more drinks on one occasion: 0 (Never). No past consequences of alcohol use. Currently, the patient has no alcohol use. The patient denies current drug use.. The patient does not report social/occupational/ legal consequences associated with drug or alcohol use. Currently, the patient has no reported substance abuse (prescription or illegal). Treatment included: The patient has never had any substance abuse treatment. The patient was given a handout: The Facts About Alcohol Use AND Your Bariatric Surgery. The patient is a lifelong nonsmoker. The patient has no tobacco use. FAMILY OF ORIGIN Ms. Teresa was raised in an intact family. She described her childhood as responsible oldest , did well in school. The patient had 2 sisters. The patient's parents are still living. She is currently close with her family. MARITAL FAMILY/SIGNIFICANT RELATIONSHIPS Ms. Teresa is currently to third spouse of 10 years. at 21 and 18 months later . Second is father of first son. 5 months later. The patient has 3 children, including 14 yo, 9 and 7 yo sons. The patient currently lives with and sons. The patient's significant other is somewhat unsupportive by defers decision to patient of her decision for surgery. She describes her family life as good. The patient will have Mom help her after surgery during the recovery period. Other social supports include extended family and coworkers. The patient reports that her social supports are supportive of her decision for surgery. EDUCATION/EMPLOYMENT The patient has completed 16 years of education (bachelors degree). Her achievement in school was above average. [employer]. 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 Pt has worked there for the past 2 years. She has made plans for time off postsurgery. She is expecting to recover for 4-6 weeks postsurgery. CURRENT STRESSORS: The patient reports the following stressors: trying to get everything done in 24 hours ; sons with academic problems/learning differences. The patient denies work difficulties and interpersonal problems COPING STRATEGIES The patient reports the following coping strategies: eating and spending time with my boys . These coping strategies have been partially effective. The patient notes pentecostalism practice is: Catholicism . The patient's cultural identity/ethnicity is: . LEISURE/EXERCISE The patient currently exercises 2 times a week by water aerobics/water jogging . SLEEP: The patient reports problems falling asleep: No The patient reports problems staying asleep:Yes The patient reports the following quality of sleep:good if I wear my CPAP ; setting needed to be adjusted. Total sleep time: 5 hours Patient is diagnosed with RANDEE:Yes The patient wears a CPAP for 5 hours; 7 days/week. MENTAL STATUS EXAMINATION: Appearance: normal grooming Eye contact: normal Rapport: easy. Orientation: alert and oriented in all spheres (time, person, place, situation, object) Approach to evaluation/attitude toward examiner: cooperative Mood: calm and stable Affect: appropriate and mood congruent. Self worth: average. Body Image: Dissatisfied Suicidal/homicidal ideation: Pt denied suicidal/homicidal ideation, plan and intent. Recall/Memory: normal Attention: normal Concentration:Normal Speech: within normal limits with regard to rate, tone and volume Psychomotor activity: average. Thought process: no evidence of formal thought disorder. Abstract thinking: normal. Though content: within normal limits Hallucinations/Illus ions: none Intellectual functioning: above average. Insight: intact Judgment: normal PQRS G CODES: BMI--G8417: Calculated BMI above normal and follow-up plan was documented Tobacco--CPT II 1036 F: Current tobacco non-user Alcohol--CPT II 3016F: Patient screened for unhealthy alcohol use using a systematic screening method PROVISIONAL DIAGNOSTIC IMPRESSION Primary Diagnoses: Psychological Factors Affecting Morbid Obesity; Major Depression Single Episode in Full Remission Personality Diagnoses:No diagnosis Global Assessment of Functionin-81 Absent or minimal symptoms, good functioning in all areas,interested and involved in a wide range of activities,no more than everyday problems. IMPRESSIONS: 1) Based on the information gathered through the interview process , she appears to be psychologically stable at this time with no overt evidence of psychologic contraindications for bariatric surgery. The patient does not appear to have a major uncontrolled psychiatric disorder and appears to be able to comply with the recommended medical/surgical preoperative and postoperative treatment plans.. The patient appeared to have high expectations regarding surgery. The patient?s understanding of the surgery and the changes necessary post-operatively appears to be excellent. 2) The patient denied and did not evidence clinically significant depression, anxiety, or irritability at this time. The patient denied any history of or active tobacco use. The patient denies current substance abuse and does not evidence a history of substance abuse or dependence. The patient does not have a history of an eating disorder. The patient does not meet criteria for an eating disorder at this time. TREATMENT PLAN AND RECOMMENDATIONS: 1) The following items are needed to complete the psychological evaluation: *all requirements have been met 2) The patient may benefit from the following during the surgery process: *participation in a Weight Loss Surgery support group *Read Preparing for Weight Loss Surgery: Workbook (Treatments That Work) by Cirilo Rodriguez, Josef Redd, and Anjali Naidu ([employer], 2006) *continue CPAP Adherence *continue exercise program *review books on emotional eating and online stress management resources from guidebook *Follow up with psychology as an inpatient if needed *Follow up with psychology at 1, 3, 6, and 12 months postsurgery *Do not use alcohol, tobacco, and street drugs for 3 to 6 months prior to and after surgery. 3) Pt provided with Behavior Health Considerations re: bariatric surgery, reading and internet resources for facilitating postsurgical adjustment and permanent lifestyle change, and weight loss surgery support group information in her Surgical Guide. 4) The patient is to follow up as needed presurgery and one month post surgery in shared psychology group setting. 5) Above recommendations and treatment plan will be communicated back to the referring physician by way of the shared medical record. Thank you for this referral. Please feel free to call or page with any questions. Charlene Wooten Ph.D., Clinical Psychologist; [facility] Director of Behavioral Services BEHAVIORAL HEALTH BARIATRIC EVALUATION SUMMARY DATE : 05/20/2018 PATIENT NAME: Ms. Viviane Teresa 1. Consent: Excellent 2. Expectations:Good 3. Social support :Good 4. Mental Health :Good 5. Chemical/Alcohol Abuse/Dependence: Good 6. Eating Behaviors:Excellent 7. Adherence : Excellent 8. Coping/Stressors:Jax hurt 9. Overall Psychological Impression: Excellent Referring Provider: LUCIUS SAHU [[id number]] Allergies As of Date: 05/20/2018 (No Known Allergies) Date Reviewed: 05/13/2018 Reviewed by: [facility] HospitalKevyn Lemus - Fully Assessed Primary Visit Diagnosis:Psychologi sophie factors affecting morbid obesity (HCC) [E66.01, F54] Other Visit Diagnosis:Major depressive disorder with single episode, in full remission (HCC) [F32.5] Prescriptions as of 05/20/2018 Sig: AMLODIPINE 10 MG TABLET Take 10 mg by mouth once danika* BUDESONIDE-FORMOTERO L HFA 80 * Inhale as instructed. CETIRIZINE 10 MG TABLET Take 10 mg by mouth. FUROSEMIDE 40 MG TABLET Take 40 mg by mouth twice zara* MELOXICAM 15 MG TABLET-IRRITA* MONTELUKAST 10 MG TABLET Take 10 mg by mouth. MULTIPLE VITAMINS ORAL Take by mouth. PAROXETINE 10 MG TABLET Take 10 mg by mouth. Problem List As Of Date 05/20/2018 Noted Resolved RANDEE (obstructive sleep apnea) [G47.33] INVALID FOR* Essential hypertension [I10] INVALID FOR* Letter Text [facility]/[place] [id number] FAX: [phone] Viviane Teresa [address] [facility] [address] [facility] #: [id number] Date of : 1980 May 20, 2018 Dear Insurance Provider: Ms. Teresa was seen for psychological evaluation for bariatric surgery at [facility] [place]. Based on the information gathered through the interview process and tests administered, she appears to be psychologically stable at this time. The patient denied a history of and did not evidence any unstable psychiatric illness such as schizophrenia, bipolar disorder or psychosis. In addition, the patient does not appear to have current depression or anxiety. The patient is a lifelong non-smoker. The patient denied and did not evidence any history of or active substance abuse or dependence. Consequently, the patient has not had any need for substance abuse/dependence treatment. The patient does not meet diagnostic criteria for an eating disorder at this time. The patient appears to understand and to be able to comply with the recommended medical/surgical preoperative and postoperative treatment plans. The patient appears to understand and to have the ability to make a permanent lifestyle change. The patient appears to be an acceptable candidate from a psychological perspective for weight loss surgery. Ms. Tereas has identified an appropriate support person/team to provide the necessary post-operative assistance upon discharge. Should the patient require or wish to seek additional psychological support either pre or postoperatively, we are available to provide these services. If you have questions, please do not hesitate to call oracle financial application developer [facility] at . Sincerely, Charlene Wooten, Ph.D. BMI, Director of Behavioral Services Letter Text [facility]/ [place] [address] Viviane Teresa [address] [facility] [address] [facility] #: [id number] May 20, 2018 BEHAVIORAL HEALTH RECOMMENDATIONS The following items are needed to complete your evaluation: *All requirements have been met Your provider noted that you may benefit from the following during the surgery process: *participation in a Weight Loss Surgery support group *Read Preparing for Weight Loss Surgery: Workbook (Treatments That Work) by Cirilo Rodriguez, Josef Redd, and Anjali Naidu ([employer], 2006) *continue CPAP Adherence *continue exercise program *review books on emotional eating and online stress management resources from guidebook *Follow up with psychology as an inpatient if needed *Follow up with psychology at 1, 3, 6, and 12 months postsurgery *Do not use alcohol, tobacco, and street drugs for 3 to 6 months prior to and after surgery. We reserve the right to alter our recommendations based upon additional information. Should you require or wish to seek additional psychologic support either pre or postoperatively, we are available to provide these services. Please call for a follow-up appointment. Fees associated with Behavioral Health are your responsibility. If you have questions about the fees, co-pays, or insurance coverage associated with Behavioral Health visits, please contact a financial counselor at . If you have questions about insurance coverage for the surgery, please do not hesitate to call oracle financial application developer [facility] at . Charlene Wooten, Ph.D. BMI, Director of Behavioral Services Date: 05/20/2018 Encounter Status:Closed by CHARLENE WOOTEN PHD on 05/20/18 Normal [facility] CNOV Office Visit (PSMN) VIVIANE TERESA ([id number]) 1980 F Date Time Provider Department 05/20/18 10:00 AM PSYL TESTING MAIN [facility]PSMN During your visit today, we recorded the following information about you: Charlene Wootne, PHD 05/20/2018 12:10 PM Signed [facility] PSYCHOLOGICAL TEST REPORT PATIENT: Viviane Teresa ( ) TEST ADMINISTERED: [place] Multiphasic Personality Inventory-2 Restructured Form (MMPI2-RF) Binge Eating Questionnaire (BEQ) DATE: ADMINISTERED: May 20, 2018 DATE REVIEWED: May 20, 2018 TIME REVIEWED (start/stop): 11:35 AM - 12:10 PM CARLYLE Wooten [facility]#: [id number] computer administration of test. [id number] (1 unit) The patient completed the MMPI2-RF in the [facility] [place] and was proctored by trained personnel. The credit underwriter was available for help with the testing and completed the subsequent interpretation and summary. Test completion took the patient approximately 35 minutes and the psychologist interpretation and report writing took an additional 35 minutes. BACKGROUND INFORMATION: Ms. Teresa is a 37 year old female seeking bariatric surgery referred by Surgery. She completed the MMPI2-RF and BEQ as part of a comprehensive evaluation. TEST RESULTS: Validity and Interpretation She verbalized an understanding of the purposes of the assessment. Ms. Teresa responded to MMPI2-RF test items with possible under-reporting. Such a response style may be explained 1) by very good psychological adjustment or 2) an attempt to present oneself as psychologically well-adjusted. Any absence of elevation on the substantive scales should be interpreted with caution. Non-elevated scores can not definitively rule out problems, and elevated scores may underestimate problems that are identified. This elevation was not marked and given her clinical presentation it is likely an accurate reflection of her current level of functioning. The resulting test protocol is valid but should be interpreted with caution. Overall Functioning Based on her score profile, pt?s overall functioning generally reflects an average level of emotional adjustment (GUERO = 39-64), no clinically significant thought dysfunction (THD < 65), and an above average level of behavioral constraint (BXD < 39). Specific Problem and Strength Areas Specifically, the patient profile reflects a below-average level of activation and engagement with patient's environment (RC9 < 39)., she notes significant fatigue from her sleep apnea but is highly engaged in work and her family activities. Patient also reported a below-average level of past antisocial behavior (RC4 < 39). There are no indications of somatic or cognitive dysfunction in this protocol. , She described her health as fairly good. There are no indications of internalizing dysfunction in this protocol., However, due to indications of possible under-reporting, such problems cannot be ruled out., The patient did not endorse items indicating indecisiveness and ineffectualness (T<39)., As such, this patient is likely to be self-reliant and power-oriented. There are no indications of externalizing dysfunction in this protocol., However, due to indications of possible under-reporting, these problems cannot be ruled out., The patient reports a below-average level of aggressive behavior (T<39)., The patient reports a below-average level of energy and activation (T<39). Interpersonal Functioning There is no evidence of interpersonal dysfunction; however, problems cannot be ruled out due to possible under-reporting., The patient reports a comparatively conflict-free past and current family environment (T<39). Interests Patient reports an average interest in activities or occupations of an aesthetic or literary nature (e.g., writing, music, theater). Patient reports an average interest in activities or occupations of a mechanical or physical nature (e.g., fixing and building things, the outdoors, sports). Personality The patient reports overly constrained behavior. Diagnositic Considerations Ms. Teresa's test results indicate the following possible diagnoses for further consideration: No specific psychodiagnostic recommendations are indicated by this protocol. Treatment Considerations No specific recommendations for treatment are indicated by this MMPI-2-RF protocol. No specific recommendations for treatment are indicated by this [id number] protocol. Pt reported <18 = Minimal binge eating on a measure of binge eating behaviors. BEQ = 3 IMPRESSIONS: The above test results are consistent with pt's presentation during clinical interview. Based on the information gathered through the interview and testing process: 1. Diagnostic considerations include Major depressive Disorder Single episode in full remission and Psychological Factors related to Morbid Obesity. 2. Pt denied and did not evidence clinically significant depression, anxiety, or irritability at this time. Pt denied and did not evidence any history of or active substance abuse or dependence. Pt with maladaptive eating patterns however presentation is not consistent with an eating disorder. PLAN: 1) REQUIREMENTS FOR COMPLETING BEHAVIORAL HEALTH EVALUATION: *All requirements have been met 2) The patient may benefit from the following during the surgery process: *participation in a Weight Loss Surgery support group *Read Preparing for Weight Loss Surgery: Workbook (Treatments That Work) by Cirilo Rodriguez, Josef Redd, and Anjali Naidu ([employer], 2006) *continue CPAP Adherence *continue exercise program *review books on emotional eating and online stress management resources from guidebook *Follow up with psychology as an inpatient if needed *Follow up with psychology at 1, 3, 6, and 12 months postsurgery *Do not use alcohol, tobacco, and street drugs for 3 to 6 months prior to and after surgery. 3) Insurance letter completed at this time and electronically forwarded to BMI team. 4) Above recommendations and treatment plan will be communicated back to the referring physician by way of the shared medical record. The above results were discussed verbally with the patient in session in lieu of providing a written copy of the test results. The patient can request a written copy through [email or web address]. This report is not intended for forensic purposes. Charlene Wooten, Ph.D. Psychologist Referring Provider: LUCIUS SAHU [[id number]] Allergies As of Date: 05/20/2018 (No Known Allergies) Date Reviewed: 05/13/2018 Reviewed by: Lidia ([facility]) Mariah - Fully Assessed Primary Visit Diagnosis:Psychologi sophie factors affecting morbid obesity (HCC) [E66.01, F54] Other Visit Diagnosis:Major depressive disorder with single episode, in full remission (HCC) [F32.5] Prescriptions as of 05/20/2018 Sig: AMLODIPINE 10 MG TABLET Take 10 mg by mouth once danika* BUDESONIDE-FORMOTERO L HFA 80 * Inhale as instructed. CETIRIZINE 10 MG TABLET Take 10 mg by mouth. FUROSEMIDE 40 MG TABLET Take 40 mg by mouth twice zara* MELOXICAM 15 MG TABLET-IRRITA* MONTELUKAST 10 MG TABLET Take 10 mg by mouth. MULTIPLE VITAMINS ORAL Take by mouth. PAROXETINE 10 MG TABLET Take 10 mg by mouth. Problem List As Of Date 05/20/2018 Noted Resolved RANDEE (obstructive sleep apnea) [G47.33] INVALID FOR* Essential hypertension [I10] INVALID FOR* Encounter Status:Closed by CHARLENE WOOTEN PHD on 05/20/18 Normal [facility] PROGRESSon 05-20-2018 PROGRESS HNO ID: [id number] Author: Charlene Wooten Service: (none) Author Type: Physician Type: Progress Notes Filed: 05/20/2018 12:10 PM Note Text: [facility] PSYCHOLOGICAL TEST REPORT PATIENT: Viviane Teresa ( ) TEST ADMINISTERED: [place] Multiphasic Personality Inventory-2 Restructured Form (MMPI2-RF) Binge Eating Questionnaire (BEQ) DATE: ADMINISTERED: May 20, 2018 DATE REVIEWED: May 20, 2018 TIME REVIEWED (start/stop): 11:35 AM - 12:10 PM CARLYLE Wooten, [facility]#: [id number] computer administration of test. 16845 (1 unit) The patient completed the MMPI2-RF in the [facility] [place] and was proctored by trained personnel. The credit underwriter was available for help with the testing and completed the subsequent interpretation and summary. Test completion took the patient approximately 35 minutes and the psychologist interpretation and report writing took an additional 35 minutes. BACKGROUND INFORMATION: Ms. Teresa is a 37 year old female seeking bariatric surgery referred by Surgery. She completed the MMPI2-RF and BEQ as part of a comprehensive evaluation. TEST RESULTS: Validity and Interpretation She verbalized an understanding of the purposes of the assessment. Ms. Teresa responded to MMPI2-RF test items with possible under-reporting. Such a response style may be explained 1) by very good psychological adjustment or 2) an attempt to present oneself as psychologically well-adjusted. Any absence of elevation on the substantive scales should be interpreted with caution. Non-elevated scores can not definitively rule out problems, and elevated scores may underestimate problems that are identified. This elevation was not marked and given her clinical presentation it is likely an accurate reflection of her current level of functioning. The resulting test protocol is valid but should be interpreted with caution. Overall Functioning Based on her score profile, pt?s overall functioning generally reflects an average level of emotional adjustment (GUERO = 39-64), no clinically significant thought dysfunction (THD < 65), and an above average level of behavioral constraint (BXD < 39). Specific Problem and Strength Areas Specifically, the patient profile reflects a below-average level of activation and engagement with patient's environment (RC9 < 39)., she notes significant fatigue from her sleep apnea but is highly engaged in work and her family activities. Patient also reported a below-average level of past antisocial behavior (RC4 < 39). There are no indications of somatic or cognitive dysfunction in this protocol. , She described her health as fairly good. There are no indications of internalizing dysfunction in this protocol., However, due to indications of possible under-reporting, such problems cannot be ruled out., The patient did not endorse items indicating indecisiveness and ineffectualness (T<39)., As such, this patient is likely to be self-reliant and power-oriented. There are no indications of externalizing dysfunction in this protocol., However, due to indications of possible under-reporting, these problems cannot be ruled out., The patient reports a below-average level of aggressive behavior (T<39)., The patient reports a below-average level of energy and activation (T<39). Interpersonal Functioning There is no evidence of interpersonal dysfunction; however, problems cannot be ruled out due to possible under-reporting., The patient reports a comparatively conflict-free past and current family environment (T<39). Interests Patient reports an average interest in activities or occupations of an aesthetic or literary nature (e.g., writing, music, theater). Patient reports an average interest in activities or occupations of a mechanical or physical nature (e.g., fixing and building things, the outdoors, sports). Personality The patient reports overly constrained behavior. Diagnositic Considerations Ms. Teresa's test results indicate the following possible diagnoses for further consideration: No specific psychodiagnostic recommendations are indicated by this protocol. Treatment Considerations No specific recommendations for treatment are indicated by this MMPI-2-RF protocol. No specific recommendations for treatment are indicated by this [id number] protocol. Pt reported <18 = Minimal binge eating on a measure of binge eating behaviors. BEQ = 3 IMPRESSIONS: The above test results are consistent with pt's presentation during clinical interview. Based on the information gathered through the interview and testing process: 1. Diagnostic considerations include Major depressive Disorder Single episode in full remission and Psychological Factors related to Morbid Obesity. 2. Pt denied and did not evidence clinically significant depression, anxiety, or irritability at this time. Pt denied and did not evidence any history of or active substance abuse or dependence. Pt with maladaptive eating patterns however presentation is not consistent with an eating disorder. PLAN: 1) REQUIREMENTS FOR COMPLETING BEHAVIORAL HEALTH EVALUATION: *All requirements have been met 2) The patient may benefit from the following during the surgery process: *participation in a Weight Loss Surgery support group *Read Preparing for Weight Loss Surgery: Workbook (Treatments That Work) by Cirilo Rodriguez, Josef Redd, and Anjali Naidu ([employer], 2006) *continue CPAP Adherence *continue exercise program *review books on emotional eating and online stress management resources from guidebook *Follow up with psychology as an inpatient if needed *Follow up with psychology at 1, 3, 6, and 12 months postsurgery *Do not use alcohol, tobacco, and street drugs for 3 to 6 months prior to and after surgery. 3) Insurance letter completed at this time and electronically forwarded to BMI team. 4) Above recommendations and treatment plan will be communicated back to the referring physician by way of the shared medical record. The above results were discussed verbally with the patient in session in lieu of providing a written copy of the test results. The patient can request a written copy through [email or web address]. This report is not intended for forensic purposes. Charlene Wooten, Ph.D. Psychologist Normal [facility] PROGRESS HNO ID: [id number] Author: Charlene Wooten Service: (none) Author Type: Physician Type: Progress Notes Filed: 05/20/2018 11:33 AM Note Text: [facility] BARIATRIC SURGERY BEHAVIORAL HEALTH EVALUATION DATE OF SERVICE: 05/20/2018 TIME OF SERVICE: 10:45 aM - 11:35 AM COST CENTER: [facility] CPT CODE: 53974 Psychiatric diagnostic evaluation BILLING CODE: ENDO PSYL MAIN EMELY8/Sugar DATE OF FIRST SERVICE THIS CYCLE: 05/20/2018 SESSION #: 1 The patient signed the Informed Consent for Psychological Evaluation AND Care Form, and the [facility] care insurance benefits, fees for service, emergency procedures, and the limits of confidentiality that may pertain with any given case were discussed with the patient. Ms. Teresa was given a copy of the consent form. IDENTIFYING INFORMATION: Ms. Viviane Teresa is a 37 year old female. She was referred by Dr. Sahu. Ms. Teresa is seeking gastric bypass surgery for morbid obesity. COLLATERAL PARTIES PRESENT: none. MOTIVATION FOR SURGERY / UNDERSTANDING OF PROCEDURE / EXPECTATIONS: Ms. Teresa notes she is motivated for surgery by pain and keeping up with kids. 14 years ago had completed all the steps and right at time of scheduling learned she was . 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 The patient has a excellent understanding of the surgery, risks, and benefits. She has talked with other people who have undergone the procedure. Friends and just ran into HS friend in our waiting room. Specific areas of understanding that should be addressed include n/a. The patient has not attended a weight loss surgery support group. The patient expects to lose 190 lbs. following surgery over 24 months. Wouldn't be disappointed with more realistic goal. Has already lost 25 lbs while in our program. Other expectations include increased energy and decreased pain. Would like to exercise more and keep up with family activities (hiking, camping, [place]). Educated patient regarding expected weight loss after surgical procedure and timeline of weight loss/surgery recovery. CAPACITY TO CONSENT: Ms. Teresa evidences the following concerns regarding capacity to consent: none noted. MEDICAL PROBLEMS ACTIVE PROBLEM LIST Randee (Obstructive Sleep Apnea) Essential Hypertension Asthma OA Past surgeries? Yes. No past surgical history on file. History of psychological complications post-surgery? No although post- depression after second son. MEDICATIONS Current Outpatient Prescriptions: amLODIPine (NORVASC) 10 mg tablet Take 10 mg by mouth once daily. budesonide-formotero l (SYMBICORT) 80-4.5 mcg/actuation inhaler Inhale as instructed. cetirizine (ZYRTEC) 10 mg tablet Take 10 mg by mouth. furosemide (LASIX) 40 mg tablet Take 40 mg by mouth twice daily. Meloxicam AND Irritant Cntr #2 15 mg kit montelukast (SINGULAIR) 10 mg tablet Take 10 mg by mouth. multivitamin (MULTIPLE VITAMINS ORAL) Take by mouth. PARoxetine (PAXIL) 10 mg tablet Take 10 mg by mouth. No current facility-administere d medications for this visit. Started Biotin, B-12, Ca and Fe to get into habit after surgery OTC Benadryl for seasonal allergies Medications were reviewed with patient. ALLERGIES ALLERGIES No Known Allergies EATING/WEIGHT HISTORY: Ms. Teresa was overweight as a child. Her weight at age 17 was 155-160 lbs. Always bigger than friends . The patient reports the following factors as contributing to weight gain: inactivity, , genetic predisposition and convenience eating . The patient reports a family history of obesity. The patient's current weight is 335.8 lbs. Her BMI is 56. The patient has tried weight loss strategies in the past including: Exercise/increased activity, Medications such as Adapex, Weight watchers, Nutrisystem, Atkins and Advocare The patient denies a history of laxative/diuretic use. The patient denies a history of vomiting to lose weight. The patient denies a history of an eating disorder. She has not had treatment for eating disorders in the past. The most pt has lost is 45 lbs using Weight watchers. Patient reports eating 3 meals/day, with 1-2 snacks. The patient describes her eating pattern as: She is adherent with partial liquid diet (Muscle Milk) for breakfast and lunch. Main meal is balanced- consistently lean protein and [address] of starch (riced cauliflower). Snacks include portioned out nuts, fruit. Beverage is mostly water and has been consciously foods and fluids. The patient notes caffeine use of 1 cups/day. Soda pop usage is 0 per day. BINGE EATING ASSESSMENT: A. Recurrent episodes of binge eating. An episode is characterized by: 1. Eating a larger amount of food than normal during a short period of time (within any two hour period): No 2. Lack of control over eating during the binge episode (i.e. the feeling that one cannot stop eating): No B. Binge eating episodes are associated with three or more of the followin. Eating until feeling uncomfortably full: No: in past (not even Thanksgiving) 2. Eating large amounts of food when not physically hungry: Yes: I am a stress eater but actively trying to find new habits. 3. Eating much more rapidly than normal: No 4. Eating alone because you are embarrassed by how much you're eating: No 5. Feeling disgusted, depressed, or guilty after overeating: No THREE ASSOCIATED SYMPTOMS MET? No C. Marked distress regarding binge eating is present: No D. Binge eating occurs, on average, at least 1 days a week for three months: No The patient reports 0 binge episodes per week for the past 12 months. E. The binge eating is not associated with the regular use of inappropriate compensatory behavior (i.e. purging, excessive exercise, etc.) and does not occur exclusively during the course of bulimia nervosa or anorexia nervosa.No PATIENT MEETS ABOVE CRITERIA FOR BINGE EATING DISORDER:No The patient reports the following behaviors associated with binge eating: Eats when bored or stressed. Administered BES. On the BES, pt scored 3, reflecting <18 = Minimal binge eating on a measure of binge eating behaviors. The patient shows graze eating behaviors: No: but did in past. recently diagnosed with T2DM and all trigger foods have been removed. Patient notes loss of control with grazing No. Grazing occurs 0 days/week. NIGHT EATING SYNDROME A. Demonstrates a significantly increased intake in the evening and/or nighttime, as evidenced by one or both of the following. 1. At least 25% of food is consumed after the evening meal: No: put did in past; less hungry now that using the Muscle Milk. Also going to bed earlier. 2. At least two episodes of nocturnal eating per week: No B. The clinical picture is characterized by three or more of the followin. Lack of desire to eat in the morning and/or breakfast is skipped four or more mornings per week: No 2. A strong urge to eat between dinner and sleep onset and/or during the night:No 3. Insomnia is present four or more nights per week (onset or maintenance): No 4. Belief one must eat to initiate or return to sleep: No 5. Mood is frequently depressed or worsens in the evening: No C. Marked distress or impairment around night eating is present: No D. Night eating has occurred for at least 3 months: No PATIENT MEETS ABOVE CRITERIA FOR NIGHT EATING SYNDROME: No MENTAL HEALTH HISTORY She is currently prescribed Paxil by PCP which was prescribed for post- depression 9 years ago. Tried to go off but caused irritability. Ms. Teresa has never been an inpatient for a psychiatric reason. The patient has no previous suicide attempts. The patient has no history of self-injurious behavior. The patient has a family history of mental illness including depression in sister (also has chronic pain). The patient denies a history of physical, sexual, or emotional abuse. The results of psychological testing were reviewed during this portion of the evaluation with discussion of test taking approach, any elevations and any strengths. If critical items were present they were reviewed with the patient (see separate testing report for additional details). Describes mood as pretty easy going . The following psychiatric symptoms are noted: Depression: Denies any current symptoms of depression Madeleine: Denies any history of hypomanic or manic episodes. Psychosis: Denies any hallucinations or delusions. Generalized Anxiety Disorder: Denies any symptoms of KARMA Panic: Denies any symptoms of panic. Obsessive Compulsive Disorder: Denies any symptoms of OCD. Post-Traumatic Stress Disorder: Denies any PTSD symptoms The patient has the following level of depression: none. Besides depressive disorders, the patient meets criteria for no discernible disorder(s). SUBSTANCE USE Alcohol Use Disorder Identification Test-C: How often do you drink Alcohol? 2 (2-4x/month); How many drinks containing alcohol do you have on a typical day when you are drinking? 0 ( = 1 or 2 ); How often do you have 5 or more drinks on one occasion: 0 (Never). No past consequences of alcohol use. Currently, the patient has no alcohol use. The patient denies current drug use.. The patient does not report social/occupational/ legal consequences associated with drug or alcohol use. Currently, the patient has no reported substance abuse (prescription or illegal). Treatment included: The patient has never had any substance abuse treatment. The patient was given a handout: The Facts About Alcohol Use AND Your Bariatric Surgery. The patient is a lifelong nonsmoker. The patient has no tobacco use. FAMILY OF ORIGIN Ms. Teresa was raised in an intact family. She described her childhood as responsible oldest , did well in school. The patient had 2 sisters. The patient's parents are still living. She is currently close with her family. MARITAL FAMILY/SIGNIFICANT RELATIONSHIPS Ms. Teresa is currently to third spouse of 10 years. at 21 and 18 months later . Second is father of first son. 5 months later. The patient has 3 children, including 14 yo, 9 and 7 yo sons. The patient currently lives with and sons. The patient's significant other is somewhat unsupportive by defers decision to patient of her decision for surgery. She describes her family life as good. The patient will have Mom help her after surgery during the recovery period. Other social supports include extended family and coworkers. The patient reports that her social supports are supportive of her decision for surgery. EDUCATION/EMPLOYMENT The patient has completed 16 years of education (bachelors degree). Her achievement in school was above average. [employer]. 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 Pt has worked there for the past 2 years. She has made plans for time off postsurgery. She is expecting to recover for 4-6 weeks postsurgery. CURRENT STRESSORS: The patient reports the following stressors: trying to get everything done in 24 hours ; sons with academic problems/learning differences. The patient denies work difficulties and interpersonal problems COPING STRATEGIES The patient reports the following coping strategies: eating and spending time with my boys . These coping strategies have been partially effective. The patient notes pentecostalism practice is: Catholicism . The patient's cultural identity/ethnicity is: . LEISURE/EXERCISE The patient currently exercises 2 times a week by water aerobics/water jogging . SLEEP: The patient reports problems falling asleep: No The patient reports problems staying asleep:Yes The patient reports the following quality of sleep:good if I wear my CPAP ; setting needed to be adjusted. Total sleep time: 5 hours Patient is diagnosed with RANDEE:Yes The patient wears a CPAP for 5 hours; 7 days/week. MENTAL STATUS EXAMINATION: Appearance: normal grooming Eye contact: normal Rapport: easy. Orientation: alert and oriented in all spheres (time, person, place, situation, object) Approach to evaluation/attitude toward examiner: cooperative Mood: calm and stable Affect: appropriate and mood congruent. Self worth: average. Body Image: Dissatisfied Suicidal/homicidal ideation: Pt denied suicidal/homicidal ideation, plan and intent. Recall/Memory: normal Attention: normal Concentration:Normal Speech: within normal limits with regard to rate, tone and volume Psychomotor activity: average. Thought process: no evidence of formal thought disorder. Abstract thinking: normal. Though content: within normal limits Hallucinations/Illus ions: none Intellectual functioning: above average. Insight: intact Judgment: normal PQRS G CODES: BMI--G8417: Calculated BMI above normal and follow-up plan was documented Tobacco--CPT II 1036 F: Current tobacco non-user Alcohol--CPT II 3016F: Patient screened for unhealthy alcohol use using a systematic screening method PROVISIONAL DIAGNOSTIC IMPRESSION Primary Diagnoses: Psychological Factors Affecting Morbid Obesity; Major Depression Single Episode in Full Remission Personality Diagnoses:No diagnosis Global Assessment of Functionin-81 Absent or minimal symptoms, good functioning in all areas,interested and involved in a wide range of activities,no more than everyday problems. IMPRESSIONS: 1) Based on the information gathered through the interview process , she appears to be psychologically stable at this time with no overt evidence of psychologic contraindications for bariatric surgery. The patient does not appear to have a major uncontrolled psychiatric disorder and appears to be able to comply with the recommended medical/surgical preoperative and postoperative treatment plans.. The patient appeared to have high expectations regarding surgery. The patient?s understanding of the surgery and the changes necessary post-operatively appears to be excellent. 2) The patient denied and did not evidence clinically significant depression, anxiety, or irritability at this time. The patient denied any history of or active tobacco use. The patient denies current substance abuse and does not evidence a history of substance abuse or dependence. The patient does not have a history of an eating disorder. The patient does not meet criteria for an eating disorder at this time. TREATMENT PLAN AND RECOMMENDATIONS: 1) The following items are needed to complete the psychological evaluation: *all requirements have been met 2) The patient may benefit from the following during the surgery process: *participation in a Weight Loss Surgery support group *Read Preparing for Weight Loss Surgery: Workbook (Treatments That Work) by Cirilo Rodriguez, Josef Redd, and Anjali Naidu ([employer], 2006) *continue CPAP Adherence *continue exercise program *review books on emotional eating and online stress management resources from guidebook *Follow up with psychology as an inpatient if needed *Follow up with psychology at 1, 3, 6, and 12 months postsurgery *Do not use alcohol, tobacco, and street drugs for 3 to 6 months prior to and after surgery. 3) Pt provided with Behavior Health Considerations re: bariatric surgery, reading and internet resources for facilitating postsurgical adjustment and permanent lifestyle change, and weight loss surgery support group information in her Surgical Guide. 4) The patient is to follow up as needed presurgery and one month post surgery in shared psychology group setting. 5) Above recommendations and treatment plan will be communicated back to the referring physician by way of the shared medical record. Thank you for this referral. Please feel free to call or page with any questions. Charlene Wooten Ph.D., Clinical Psychologist; [facility] Director of Behavioral Services BEHAVIORAL HEALTH BARIATRIC EVALUATION SUMMARY DATE : 05/20/2018 PATIENT NAME: Ms. Viviane Teresa 1. Consent: Excellent 2. Expectations:Good 3. Social support :Good 4. Mental Health :Good 5. Chemical/Alcohol Abuse/Dependence: Good 6. Eating Behaviors:Excellent 7. Adherence : Excellent 8. Coping/Stressors:Goo d 9. Overall Psychological Impression: Excellent [facility] CNOVon 05-13-2018 CNOV Office Visit ([facility]) VIVIANE TERESA ([id number]) 1980 F Date Time Provider Department 05/13/18 7:40 AM LIDIA LEMUS (SAMANTHA) [facility] During your visit today, we recorded the following information about you: Pulse Respiration Blood pressure 80/minute 18/minute 128/80 Lidia Lemus APRN.CNP 05/13/2018 3:27 PM Signed Sleep Medicine Consultation [facility] PATIENT NAME: Viviane Teresa DATE OF SERVICE: May 13, 2018 REASON FOR CONSULT: Possible sleep apnea HPI: Viviane Teresa is a 37 year old female a bariatric surgical candidate who presents with possible sleep apnea. She does keep a regular sleep/wake schedule. She goes to bed by 10-10:30 PM. She falls asleep in 30-45 minutes. She usually wakes up by 5 AM. She estimates a total sleep time (in a 24 hour period) of 4.5-6 hours (per the Fitbit) - Does not take nap. She usually sleeps in the back position. Once she falls asleep, she wakes up due to snoring or snorting and the need to urinate. During sleep she usually breathes through her mouth. There is a history of deviated septum surgery x3 and turbinate reduction while in [employer]. She has lost 20 pounds since December 2017. Excessive daytime sleepiness is a problem. Since restarted CPAP there has been improvement however she gets sleepy when she sits at a computer. Also if she is at a stop light she may nod off. PAST TREATMENTS: PAP therapy: Yes- CPAP DME: [facility]. - End of February 2018 she restarted using her CPAP. Prior to that she was not using her machine because she felt that she could not get enough air. She discovered the issue was the ramp. The ramp is now off. - Using 5 nights per week. She wants to use it more but sometimes she falls to sleep without putting on the mask. - She noticed a big difference in her sleep quality since restarting PAP. - Using FFM. Some mask leak by her nose. - She purchases her supplies online through [employer]. PRIOR SLEEP STUDIES: Baseline PSG performed on 03/05/18, TST 118.5, Overall AHI 123, REM AHI n/a, Supine AHI n/a. Minimum oxygen saturation 61%. PAP titration study performed on 03/05/18 recommended a PAP setting of 14 cmH2O which is her current pressure. OTHER RELEVANT LABS AND STUDIES: Component Latest Ref Rng AND Units 02/18/2018 Iron 41 - 186 ug/dL 56 TIBC 232 - 386 ug/dL 286 Transferrin Saturation 15 - 57 % 20 TSH 0.400 - 5.500 uU/mL 1.520 Vitamin D 25 Hydroxy 31.0 - 80.0 ng/mL 29.6 (L) No past medical history on file. No past surgical history on file. There is no problem list on file for this patient. Allergies As of Date: 05/13/2018 (No Known Allergies) Fully Assessed 05/08/2018 CURRENT MEDICATIONS: budesonide-formotero l (SYMBICORT) 80-4.5 mcg/actuation inhaler Inhale as instructed. cetirizine (ZYRTEC) 10 mg tablet Take 10 mg by mouth. montelukast (SINGULAIR) 10 mg tablet Take 10 mg by mouth. multivitamin (MULTIPLE VITAMINS ORAL) Take by mouth. PARoxetine (PAXIL) 10 mg tablet Take 10 mg by mouth. Meloxicam AND Irritant Cntr #2 15 mg kit furosemide (LASIX) 40 mg tablet Take 40 mg by mouth twice daily. amLODIPine (NORVASC) 10 mg tablet Take 10 mg by mouth once daily. REVIEW OF SYSTEMS SLEEP RELATED ROS GENERAL: See HPI HEENT: positive nasal congestion - seasonal (March to August). Uses nasal spray and antihistamines. Asthma also flares during this time. 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 FAMILY HISTORY There is family history of a sleep disorder. Mother RANDEE (doesn't wear her CPAP) PHYSICAL EXAMINATION: Vital Signs: BP 128/80 Pulse 80 Resp 18 SpO2 96% PHYSICAL EXAM: General appearance: NAD Mental status: awake and alert Neck circumference: 16.25 in Constitutional: wnl Skin: warm and dry Eyes: wnl ENT : Nasal congestion present, Nasal valve incompetence absent. Posterior airspace: Mcarthur tongue position 2-3, retrognathia absent. Overbite absent. High arched palate absent. Tongue scalloping/ridging absent. Uvula: wnl Chest: Regular S1 and S2, Lungs clear to auscultation Abdomen: obese Extremities: no dependent edema Neuro: normal gait, tongue midline, speech fluent IMPRESSION: Randee (obstructive sleep apnea) (primary encounter diagnosis) 37 y/o female bariatric surgery candidate with PMH HTN and morbid obesity. - Severe RANDEE on split night PSG performed at outside facility (results in scanned documents). AHI 123. O2 gonzalo 61%. - Recommendation is CPAP 14 cmH2O which was her current pressure. - Restarted PAP therapy at the end of February 2018 after the ramp was turned off (felt she was not getting enough air). - Recommended using PAP therapy nightly to further improve her daytime sleepiness. - No drowsy driving. - DME is [employer] however she purchases her supplies online due to cost. - Plans to have bariatric wt loss surgery in June. Discussed reassessing RANDEE once she loses 100 lbs. - F/U in 7 months. ALL Galvez APRN.CNP 05/13/2018 8:33 AM Addendum Biotene ([facility] brand) Xylimelts dry mouth discs Referring Provider: ADWOA PANDA [[id number]] Allergies As of Date: 05/13/2018 (No Known Allergies) Date Reviewed: 05/13/2018 Reviewed by: Lidia (Samantha) Mariah - Fully Assessed Primary Visit Diagnosis:RANDEE (obstructive sleep apnea) [G47.33] Prescriptions as of 05/13/2018 Sig: BUDESONIDE-FORMOTERO L HFA 80 * Inhale as instructed. CETIRIZINE 10 MG TABLET Take 10 mg by mouth. MONTELUKAST 10 MG TABLET Take 10 mg by mouth. MULTIPLE VITAMINS ORAL Take by mouth. PAROXETINE 10 MG TABLET Take 10 mg by mouth. MELOXICAM 15 MG TABLET-IRRITA* FUROSEMIDE 40 MG TABLET Take 40 mg by mouth twice zara* AMLODIPINE 10 MG TABLET Take 10 mg by mouth once danika* Problem List As Of Date 05/13/2018 Noted Resolved RANDEE (obstructive sleep apnea) [G47.33] INVALID FOR* Essential hypertension [I10] INVALID FOR* Other instructions from your clinician: Biotene ([facility] brand) Xylimelts dry mouth discs Follow-up and Disposition History Recorded Encounter Status:Closed by LIDIA LEMUS on 05/13/18 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 She does keep a regular sleep/wake schedule. She goes to bed by 10-10:30 PM. She falls asleep in 30-45 minutes. She usually wakes up by 5 AM. She estimates a total sleep time (in a 24 hour period) of 4.5-6 hours (per the Fitbit) - Does not take nap. She usually sleeps in the back position. Once she falls asleep, she wakes up due to snoring or snorting and the need to urinate. During sleep she usually breathes through her mouth. There is a history of deviated septum surgery x3 and turbinate reduction while in [employer]. She has lost 20 pounds since December 2017. Excessive daytime sleepiness is a problem. Since restarted CPAP there has been improvement however she gets sleepy when she sits at a computer. Also if she is at a stop light she may nod off. PAST TREATMENTS: PAP therapy: Yes- CPAP DME: [facility]. - End of February 2018 she restarted using her CPAP. Prior to that she was not using her machine because she felt that she could not get enough air. She discovered the issue was the ramp. The ramp is now off. - Using 5 nights per week. She wants to use it more but sometimes she falls to sleep without putting on the mask. - She noticed a big difference in her sleep quality since restarting PAP. - Using FFM. Some mask leak by her nose. - She purchases her supplies online through [employer]. PRIOR SLEEP STUDIES: Baseline PSG performed on 03/05/18, TST 118.5, Overall AHI 123, REM AHI n/a, Supine AHI n/a. Minimum oxygen saturation 61%. PAP titration study performed on 03/05/18 recommended a PAP setting of 14 cmH2O which is her current pressure. OTHER RELEVANT LABS AND STUDIES: Component Latest Ref Rng AND Units 02/18/2018 Iron 41 - 186 ug/dL 56 TIBC 232 - 386 ug/dL 286 Transferrin Saturation 15 - 57 % 20 TSH 0.400 - 5.500 uU/mL 1.520 Vitamin D 25 Hydroxy 31.0 - 80.0 ng/mL 29.6 (L) No past medical history on file. No past surgical history on file. There is no problem list on file for this patient. Allergies As of Date: 05/13/2018 (No Known Allergies) Fully Assessed 05/08/2018 CURRENT MEDICATIONS: budesonide-formotero l (SYMBICORT) 80-4.5 mcg/actuation inhaler Inhale as instructed. cetirizine (ZYRTEC) 10 mg tablet Take 10 mg by mouth. montelukast (SINGULAIR) 10 mg tablet Take 10 mg by mouth. multivitamin (MULTIPLE VITAMINS ORAL) Take by mouth. PARoxetine (PAXIL) 10 mg tablet Take 10 mg by mouth. Meloxicam AND Irritant Cntr #2 15 mg kit furosemide (LASIX) 40 mg tablet Take 40 mg by mouth twice daily. amLODIPine (NORVASC) 10 mg tablet Take 10 mg by mouth once daily. REVIEW OF SYSTEMS SLEEP RELATED ROS GENERAL: See HPI HEENT: positive nasal congestion - seasonal (March to August). Uses nasal spray and antihistamines. Asthma also flares during this time. 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 FAMILY HISTORY There is family history of a sleep disorder. Mother RANDEE (doesn't wear her CPAP) PHYSICAL EXAMINATION: Vital Signs: BP 128/80 Pulse 80 Resp 18 SpO2 96% PHYSICAL EXAM: General appearance: NAD Mental status: awake and alert Neck circumference: 16.25 in Constitutional: wnl Skin: warm and dry Eyes: wnl ENT : Nasal congestion present, Nasal valve incompetence absent. Posterior airspace: Mcarthur tongue position 2-3, retrognathia absent. Overbite absent. High arched palate absent. Tongue scalloping/ridging absent. Uvula: wnl Chest: Regular S1 and S2, Lungs clear to auscultation Abdomen: obese Extremities: no dependent edema Neuro: normal gait, tongue midline, speech fluent IMPRESSION: Randee (obstructive sleep apnea) (primary encounter diagnosis) 37 y/o female bariatric surgery candidate with PMH HTN and morbid obesity. - Severe RANDEE on split night PSG performed at outside facility (results in scanned documents). AHI 123. O2 gonzalo 61%. - Recommendation is CPAP 14 cmH2O which was her current pressure. - Restarted PAP therapy at the end of February 2018 after the ramp was turned off (felt she was not getting enough air). - Recommended using PAP therapy nightly to further improve her daytime sleepiness. - No drowsy driving. - DME is [facility] however she purchases her supplies online due to cost. - Plans to have bariatric wt loss surgery in June. Discussed reassessing RANDEE once she loses 100 lbs. - F/U in 7 months. Lidia Lemus, SEGUNDO.GREASE REFINING SUPERVISOR [facility] CNCNPATEDon 05-08-2018 CNCNPATED Education (GENI) VIVIANE TERESA ([id number]) 1980 F Date Time Provider Department 05/08/18 1:00 PM NKECHI WOODS (LOKI) GENI Reason for Visit: Patient Education [91] Reassessment [674] Progress Notes: Nkechi Woods RD 05/08/2018 1:55 PM Signed Nutritional Therapy Re-Assessment PAIN: Is the patient having any pain that is interfering with oral / enteral intake? No 0 on a scale of 0 to 10 PROGRESS: Nutrition Intervention (date of last encounter 04/03/2018): 1.? Continue to not skip meals. 2.? Use protein shake 1x per day to replace any skipped meals or for breakfast 3.? Use the Healthy Plate Method of portion control for lunch and dinner? 4 oz lean meat (fish, chicken, pork tenderloin, turkey, seafood, eggs/cheese? 1/2 plate non starchy vegetables (salad, greens, cabbage, spinach, brussels ?sprouts, broccoli,? carrots, celery, peppers, green beans, cauliflower) ? 1 cup starch/starchy vegetables (corn, peas, moss beans, winter squash, sweet ? potato, rice, pasta,? Potato) 4.? Continue physical activity with a goal of 150 min of aerobic exercise per week. Include 2-3 days of strength exercises 2-3 times/week. 5.? Drink 64 ounces per day water.? Fluids should follow these guidelines:? No carbonation, no caffeine, no calories, no alcohol.? ? Pre-op goal weight:?326# Protein goal: 73-91?grams CHANGES IN TREATMENT: Patient met goal(s): Yes Actions to implement interventions: see assessment CLINICAL IMPRESSIONS: good REVISIONS IN DIAGNOSIS: Diagnosis: has not changed. Allergies: Patient has no known allergies. Medications: Current Outpatient Prescriptions: budesonide-formotero l (SYMBICORT) 80-4.5 mcg/actuation inhaler Inhale as instructed. Disp: Rfl: cetirizine (ZYRTEC) 10 mg tablet Take 10 mg by mouth. Disp: Rfl: montelukast (SINGULAIR) 10 mg tablet Take 10 mg by mouth. Disp: Rfl: multivitamin (MULTIPLE VITAMINS ORAL) Take by mouth. Disp: Rfl: PARoxetine (PAXIL) 10 mg tablet Take 10 mg by mouth. Disp: Rfl: Meloxicam AND Irritant Cntr #2 15 mg kit Disp: Rfl: furosemide (LASIX) 40 mg tablet Take 40 mg by mouth twice daily. Disp: Rfl: amLODIPine (NORVASC) 10 mg tablet Take 10 mg by mouth once daily. Disp: Rfl: No current facility-administere d medications for this visit. (currently taking) Anthropometrics: Height: Last 1 Encounter Ht Readings: Date: Ht: 04/03/2018 164 cm (5' 4.57 ) Current weight: Last 1 Encounter Wt Readings: Date: Wt: 04/03/2018 154.6 kg (340 lb 14.4 oz) Body mass index is 55.87 kg/m?. Resting Metabolic Rate: 2221 NUTRITION ASSESSMENT: Malnutrition Screening Significant unintentional weight loss? No Eating less than 75% of usual intake for more than 2 weeks? No Potential Signs of Inflammation: no identifiable sources RECOMMENDED MALNUTRITION DIAGNOSIS: NO MALNUTRITION IDENTIFIED Nutritional status: Educational materials provided: none this visit READINESS TO LEARN Cognitive ability: Alert and oriented Motivation to learn: Eager Interested Family support: Unable to assess - Family not present Instruction provided to: Patient Patient learns best by: Multiple Methods Factors affecting learning: None Physical limitations affecting learning: None Likelihood of Adherence: High Patient presents with 10# weight loss since last visit. She is adherent with partial liquid diet (Muscle Milk) for breakfast and lunch. Main meal is balanced- consistently lean protein and [address] of [address] (riced cauliflower). Snacks include portioned out nuts, fruit. Beverage is mostly water, will have Premier clear shake- estimated volume 64 ounces and has been consciously foods and fluids. Exercise is less with knee pain- goes to pool 2/week does aqua jogging 60 minutes. Patient is taking Celebrate mvi, calcium citrate twice a day. Overall doing well, anticipate clearance at next visit. Patient meets the National Institutes of Health guidelines for weight loss surgery and has [employer] insurance and therefore may be required to complete 6 months of Nutrition Intervention for clearance for surgery. This is 5 of 6 required visits- PCP visit December 23, 2017. Nutrition Diagnosis: Overweight Obesity, related to; decreased energy needs, as evidenced by BMI above normative standard for age and gender. Nutrition Intervention 05/08/2018: Modify type and amount of food eaten at meals and snacks. 1.? Continue to not skip meals. 2.? Begin 0335-1752 calorie partial liquid diet (refer to handout) Breakfast: protein shake (200-250 calories, 15+ grams protein) plus 1 piece of fruit Lunch: protein shake (200-250 calories, 15+ grams protein) plus 1 piece of fruit Dinner: 4-5 ounces lean protein, 1 cup starch (bread/pasta/potatoe s/corn/peas), unlimited non starchy vegetables 1 snack (< 150 calories) should contain protein 3.? Continue physical activity with a goal of 150 min of aerobic exercise per week. Include 2-3 days of strength exercises 2-3 times/week. 4.? Drink 64 ounces per day water.? Fluids should follow these guidelines:? No carbonation, no caffeine, no calories, no alcohol.? ? Pre-op goal weight:?326# Protein goal: 73-91?grams Nutrition Monitoring AND Evaluation: 1-2# weight loss per week Criteria: weight check Need for Follow up: 1 month Referred/Supervised by: Darshan/Bridger MCCLAIN Billing Type: Re-assess/15 min 2 units SIGNATURE: Nkechi Woods, MS,RD,LD PATIENT NAME: Viviane Teresa DATE: May 08, 2018 TIME: 7:46 AM PAGER: Primary Visit Diagnosis:Morbid obesity (HCC) [E66.01] Other Visit Diagnosis:Dietary counseling and surveillance [Z71.3] During your visit today, we recorded the following information about you: Weight Height 150.3 kg 1.64 m Allergies As of Date: 05/08/2018 (No Known Allergies) Date Reviewed: 05/08/2018 Reviewed by: Nkechi Woods - Fully Assessed Prescriptions as of 05/08/2018 Sig: BUDESONIDE-FORMOTERO L HFA 80 * Inhale as instructed. CETIRIZINE 10 MG TABLET Take 10 mg by mouth. MONTELUKAST 10 MG TABLET Take 10 mg by mouth. MULTIPLE VITAMINS ORAL Take by mouth. PAROXETINE 10 MG TABLET Take 10 mg by mouth. MELOXICAM 15 MG TABLET-IRRITA* FUROSEMIDE 40 MG TABLET Take 40 mg by mouth twice zara* AMLODIPINE 10 MG TABLET Take 10 mg by mouth once danika* Encounter Status:Closed by NKECHI WOODS RD on 05/08/18 [facility] PROGRESSon 05-08-2018 PROGRESS HNO ID: [id number] Author: Nkechi Woods Service: (none) Author Type: Registered Dietitian Type: Progress Notes Filed: 05/08/2018 1:55 PM Note Text: Nutritional Therapy Re-Assessment PAIN: Is the patient having any pain that is interfering with oral / enteral intake? No 0 on a scale of 0 to 10 PROGRESS: Nutrition Intervention (date of last encounter 04/03/2018): 1.? Continue to not skip meals. 2.? Use protein shake 1x per day to replace any skipped meals or for breakfast 3.? Use the Healthy Plate Method of portion control for lunch and dinner? 4 oz lean meat (fish, chicken, pork tenderloin, turkey, seafood, eggs/cheese? 1/2 plate non starchy vegetables (salad, greens, cabbage, spinach, brussels ?sprouts, broccoli,? carrots, celery, peppers, green beans, cauliflower) ? 1 cup starch/starchy vegetables (corn, peas, moss beans, winter squash, sweet ? potato, rice, pasta,? Potato) 4.? Continue physical activity with a goal of 150 min of aerobic exercise per week. Include 2-3 days of strength exercises 2-3 times/week. 5.? Drink 64 ounces per day water.? Fluids should follow these guidelines:? No carbonation, no caffeine, no calories, no alcohol.? ? Pre-op goal weight:?326# Protein goal: 73-91?grams CHANGES IN TREATMENT: Patient met goal(s): Yes Actions to implement interventions: see assessment CLINICAL IMPRESSIONS: good REVISIONS IN DIAGNOSIS: Diagnosis: has not changed. Allergies: Patient has no known allergies. Medications: Current Outpatient Prescriptions: budesonide-formotero l (SYMBICORT) 80-4.5 mcg/actuation inhaler Inhale as instructed. Disp: Rfl: cetirizine (ZYRTEC) 10 mg tablet Take 10 mg by mouth. Disp: Rfl: montelukast (SINGULAIR) 10 mg tablet Take 10 mg by mouth. Disp: Rfl: multivitamin (MULTIPLE VITAMINS ORAL) Take by mouth. Disp: Rfl: PARoxetine (PAXIL) 10 mg tablet Take 10 mg by mouth. Disp: Rfl: Meloxicam AND Irritant Cntr #2 15 mg kit Disp: Rfl: furosemide (LASIX) 40 mg tablet Take 40 mg by mouth twice daily. Disp: Rfl: amLODIPine (NORVASC) 10 mg tablet Take 10 mg by mouth once daily. Disp: Rfl: No current facility-administere d medications for this visit. (currently taking) Anthropometrics: Height: Last 1 Encounter Ht Readings: Date: Ht: 04/03/2018 164 cm (5' 4.57 ) Current weight: Last 1 Encounter Wt Readings: Date: Wt: 04/03/2018 154.6 kg (340 lb 14.4 oz) Body mass index is 55.87 kg/m?. Resting Metabolic Rate: 2221 NUTRITION ASSESSMENT: Malnutrition Screening Significant unintentional weight loss? No Eating less than 75% of usual intake for more than 2 weeks? No Potential Signs of Inflammation: no identifiable sources RECOMMENDED MALNUTRITION DIAGNOSIS: NO MALNUTRITION IDENTIFIED Nutritional status: Educational materials provided: none this visit READINESS TO LEARN Cognitive ability: Alert and oriented Motivation to learn: Eager Interested Family support: Unable to assess - Family not present Instruction provided to: Patient Patient learns best by: Multiple Methods Factors affecting learning: None Physical limitations affecting learning: None Likelihood of Adherence: High Patient presents with 10# weight loss since last visit. She is adherent with partial liquid diet (Muscle Milk) for breakfast and lunch. Main meal is balanced- consistently lean protein and [address] of [address] (riced cauliflower). Snacks include portioned out nuts, fruit. Beverage is mostly water, will have Premier clear shake- estimated volume 64 ounces and has been consciously foods and fluids. Exercise is less with knee pain- goes to pool 2/week does aqua jogging 60 minutes. Patient is taking Celebrate mvi, calcium citrate twice a day. Overall doing well, anticipate clearance at next visit. Patient meets the National Institutes of Health guidelines for weight loss surgery and has [employer] insurance and therefore may be required to complete 6 months of Nutrition Intervention for clearance for surgery. This is 5 of 6 required visits- PCP visit December 23, 2017. Nutrition Diagnosis: Overweight Obesity, related to; decreased energy needs, as evidenced by BMI above normative standard for age and gender. Nutrition Intervention 05/08/2018: Modify type and amount of food eaten at meals and snacks. 1.? Continue to not skip meals. 2.? Begin 8572-9233 calorie partial liquid diet (refer to handout) Breakfast: protein shake (200-250 calories, 15+ grams protein) plus 1 piece of fruit Lunch: protein shake (200-250 calories, 15+ grams protein) plus 1 piece of fruit Dinner: 4-5 ounces lean protein, 1 cup starch (bread/pasta/potatoe s/corn/peas), unlimited non starchy vegetables 1 snack (< 150 calories) should contain protein 3.? Continue physical activity with a goal of 150 min of aerobic exercise per week. Include 2-3 days of strength exercises 2-3 times/week. 4.? Drink 64 ounces per day water.? Fluids should follow these guidelines:? No carbonation, no caffeine, no calories, no alcohol.? ? Pre-op goal weight:?326# Protein goal: 73-91?grams Nutrition Monitoring AND Evaluation: 1-2# weight loss per week Criteria: weight check Need for Follow up: 1 month Referred/Supervised by: Darshan/Bridger MCCLAIN Billing Type: Re-assess/15 min 2 units SIGNATURE: Nkechi Woods MS,RD,LD PATIENT NAME: Viviane Teresa DATE: May 08, 2018 TIME: 7:46 AM PAGER: Lisa [facility] CNCNPATEDon 04-03-2018 CNCNPATED Education (GENBMI) VIVIANE TERESA ([id number]) 1980 F Date Time Provider Department 04/03/18 12:00 PM NKECHI WOODS (LOKI) GENBMI Reason for Visit: Patient Education [91] Reassessment [674] Progress Notes: Nkechi Woods RD 04/03/2018 12:57 PM Signed Nutritional Therapy Re-Assessment PAIN: Is the patient having any pain that is interfering with oral / enteral intake? No 0 on a scale of 0 to 10 PROGRESS: Nutrition Intervention (date of last encounter 02/06/2018): 1.? Read Nutritional Guidelines Section of Your Guide to Surgery by next session 2.? Do not skip meals. 3.? Use protein shake 1x per day to replace any skipped meals or for breakfast 4.? Use the Healthy Plate Method of portion control for lunch and dinner? 4 oz lean meat (fish, chicken, pork tenderloin, turkey, seafood, eggs/cheese? 1/2 plate non starchy vegetables (salad, greens, cabbage, spinach, brussels ?sprouts, broccoli,? carrots, celery, peppers, green beans, cauliflower) ? 1 cup starch/starchy vegetables (corn, peas, moss beans, winter squash, sweet ? potato, rice, pasta,? Potato) 5.? Physical activity: Start to exercise from a sitting position: 20-25 minutes/session 3-4 x per week: Sandra Stolove?s Chair [employer] Sit Down and Tone UP (Encore) : Sandra Stolove?s Chair [employer] Life?s a Wayside (Seated Aerobics to Timeless Constitution Party Music); [facility] Strong Heart, Strong Body with fitness expert My Wilson; Charlene Liv Walk at Home 5 day SlimDown A mile Each Morning; Take control with Exercise (Based on the [employer] Exercise Program 6.? Drink 64 ounces per day water.? Fluids should follow these guidelines:? No carbonation, no caffeine, no calories, no alcohol.? ? Pre-op goal weight: 326# Protein goal: 73-91 grams CHANGES IN TREATMENT: Patient met goal(s): Yes Actions to implement interventions: see assessment CLINICAL IMPRESSIONS: good REVISIONS IN DIAGNOSIS: Diagnosis: has not changed. Allergies: Patient has no known allergies. Medications: Current Outpatient Prescriptions: budesonide-formotero l (SYMBICORT) 80-4.5 mcg/actuation inhaler Inhale as instructed. Disp: Rfl: cetirizine (ZYRTEC) 10 mg tablet Take 10 mg by mouth. Disp: Rfl: montelukast (SINGULAIR) 10 mg tablet Take 10 mg by mouth. Disp: Rfl: multivitamin (MULTIPLE VITAMINS ORAL) Take by mouth. Disp: Rfl: PARoxetine (PAXIL) 10 mg tablet Take 10 mg by mouth. Disp: Rfl: Meloxicam AND Irritant Cntr #2 15 mg kit Disp: Rfl: furosemide (LASIX) 40 mg tablet Take 40 mg by mouth twice daily. Disp: Rfl: amLODIPine (NORVASC) 10 mg tablet Take 10 mg by mouth once daily. Disp: Rfl: No current facility-administere d medications for this visit. (currently taking) Anthropometrics: Height: Last 1 Encounter Ht Readings: Date: Ht: 02/06/2018 164 cm (5' 4.57 ) Current weight: Last 1 Encounter Wt Readings: Date: Wt: 02/06/2018 158.1 kg (348 lb 8 oz) Body mass index is 57.49 kg/m?. Resting Metabolic Rate: 2256 NUTRITION ASSESSMENT: Malnutrition Screening Significant unintentional weight loss? No Eating less than 75% of usual intake for more than 2 weeks? No RECOMMENDED MALNUTRITION DIAGNOSIS: NO MALNUTRITION IDENTIFIED Educational materials provided: none this visit READINESS TO LEARN Cognitive ability: Alert and oriented Motivation to learn: Eager Interested Family support: Unable to assess - Family not present Instruction provided to: Patient Patient learns best by: Multiple Methods Factors affecting learning: None Physical limitations affecting learning: None Likelihood of Adherence: High Patient presents with 9# weight loss since last visit; she is replacing 1-2 meals per day with Muscle Milk, snacks include nuts and fruit. Main meal is dinner- her recently diagnosed with diabetes and have been decreasing white carbs, increasing vegetables. Protein sources include chicken/poultry, steak, hamburger. Beverage includes exclusively water- 64-80 ounces water; has been practicing foods and fluids. Exercise is slowly increasing; she has knee pain and is trying to walk a little more and does aqua jogging 2/week 45 minutes. Patient meets the National Institutes of Health guidelines for weight loss surgery and has [employer] insurance and therefore may be required to complete 6 consecutive months of Nutrition Intervention for clearance for surgery. This is 4 of 6 required visits pending December visit from PCP Nutrition Diagnosis: Overweight Obesity, related to; decreased energy needs, as evidenced by BMI above normative standard for age and gender. Nutrition Intervention 04/03/2018: Modify type and amount of food eaten at meals and snacks. 1.? Continue to not skip meals. 2.? Use protein shake 1x per day to replace any skipped meals or for breakfast 3.? Use the Healthy Plate Method of portion control for lunch and dinner? 4 oz lean meat (fish, chicken, pork tenderloin, turkey, seafood, eggs/cheese? 1/2 plate non starchy vegetables (salad, greens, cabbage, spinach, brussels ?sprouts, broccoli,? carrots, celery, peppers, green beans, cauliflower) ? 1 cup starch/starchy vegetables (corn, peas, moss beans, winter squash, sweet ? potato, rice, pasta,? Potato) 4.? Continue physical activity with a goal of 150 min of aerobic exercise per week. Include 2-3 days of strength exercises 2-3 times/week. 5.? Drink 64 ounces per day water.? Fluids should follow these guidelines:? No carbonation, no caffeine, no calories, no alcohol.? Pre-op goal weight: 326# Protein goal: 73-91 grams Nutrition Monitoring AND Evaluation: 1-2# weight loss per week Criteria: weight check Need for Follow up: 1 month Referred/Supervised by: Darshan/Bridger MCCLAIN Billing Type: Re-assess/15 min 2 units SIGNATURE: Nkechi Woods, MS,RD,LD PATIENT NAME: Viviane Teresa DATE: April 03, 2018 TIME: 7:30 AM PAGER: Primary Visit Diagnosis:Morbid obesity (HCC) [E66.01] Other Visit Diagnosis:Dietary counseling and surveillance [Z71.3] During your visit today, we recorded the following information about you: Weight Height 154.6 kg 1.64 m Allergies As of Date: 04/03/2018 (No Known Allergies) Date Reviewed: 04/03/2018 Reviewed by: Nkechi Wisdom (Loki) Ismael - Fully Assessed Prescriptions as of 04/03/2018 Sig: BUDESONIDE-FORMOTERO L HFA 80 * Inhale as instructed. CETIRIZINE 10 MG TABLET Take 10 mg by mouth. MONTELUKAST 10 MG TABLET Take 10 mg by mouth. MULTIPLE VITAMINS ORAL Take by mouth. PAROXETINE 10 MG TABLET Take 10 mg by mouth. MELOXICAM 15 MG TABLET-IRRITA* FUROSEMIDE 40 MG TABLET Take 40 mg by mouth twice zara* AMLODIPINE 10 MG TABLET Take 10 mg by mouth once danika* Letter Text Bariatric and Metabolic [place]/[facility] [id number] [place], [place] [address] April 03, 2018 Viviane Teresa [id number] [facility] [id number] [facility] Nutrition Recommendations: 1.? Continue to not skip meals. 2.? Use protein shake 1x per day to replace any skipped meals or for breakfast 3.? Use the Healthy Plate Method of portion control for lunch and dinner? 4 oz lean meat (fish, chicken, pork tenderloin, turkey, seafood, eggs/cheese? 1/2 plate non starchy vegetables (salad, greens, cabbage, spinach, brussels ?sprouts, broccoli,? carrots, celery, peppers, green beans, cauliflower) ? 1 cup starch/starchy vegetables (corn, peas, moss beans, winter squash, sweet ?potato, rice, pasta,? Potato) 4.? Continue physical activity with a goal of 150 min of aerobic exercise per week. Include 2-3 days of strength exercises 2-3 times/week. 5.? Drink 64 ounces per day water.? Fluids should follow these guidelines:? No carbonation, no caffeine, no calories, no alcohol.? Pre-op goal weight: 326# Protein goal: 73-91 grams Nkechi Woods, MS,RD,LD Encounter Status:Closed by NEKCHI WOODS RD on 04/03/18 [facility] PROGRESSon 04-03-2018 PROGRESS HNO ID: [id number] Author: Nkechi Wisdom (Loki) Ismael Service: (none) Author Type: Registered Dietitian Type: Progress Notes Filed: 04/03/2018 12:57 PM Note Text: Nutritional Therapy Re-Assessment PAIN: Is the patient having any pain that is interfering with oral / enteral intake? No 0 on a scale of 0 to 10 PROGRESS: Nutrition Intervention (date of last encounter 02/06/2018): 1.? Read Nutritional Guidelines Section of Your Guide to Surgery by next session 2.? Do not skip meals. 3.? Use protein shake 1x per day to replace any skipped meals or for breakfast 4.? Use the Healthy Plate Method of portion control for lunch and dinner? 4 oz lean meat (fish, chicken, pork tenderloin, turkey, seafood, eggs/cheese? 1/2 plate non starchy vegetables (salad, greens, cabbage, spinach, brussels ?sprouts, broccoli,? carrots, celery, peppers, green beans, cauliflower) ? 1 cup starch/starchy vegetables (corn, peas, moss beans, winter squash, sweet ? potato, rice, pasta,? Potato) 5.? Physical activity: Start to exercise from a sitting position: 20-25 minutes/session 3-4 x per week: Sandra Stolove?[employer] Chair [employer] Sit Down and Tone UP (Encore) : Sandra Stolove?s Chair [employer] Life?s a Wayside (Seated Aerobics to Timeless Constitution Party Music); [employer] Strong Heart, Strong Body with fitness expert My Wilson; Charlene Peck Walk at Home 5 day SlimDown A mile Each Morning; Take control with Exercise (Based on the [employer] Exercise Program 6.? Drink 64 ounces per day water.? Fluids should follow these guidelines:? No carbonation, no caffeine, no calories, no alcohol.? ? Pre-op goal weight: 326# Protein goal: 73-91 grams CHANGES IN TREATMENT: Patient met goal(s): Yes Actions to implement interventions: see assessment CLINICAL IMPRESSIONS: good REVISIONS IN DIAGNOSIS: Diagnosis: has not changed. Allergies: Patient has no known allergies. Medications: Current Outpatient Prescriptions: budesonide-formotero l (SYMBICORT) 80-4.5 mcg/actuation inhaler Inhale as instructed. Disp: Rfl: cetirizine (ZYRTEC) 10 mg tablet Take 10 mg by mouth. Disp: Rfl: montelukast (SINGULAIR) 10 mg tablet Take 10 mg by mouth. Disp: Rfl: multivitamin (MULTIPLE VITAMINS ORAL) Take by mouth. Disp: Rfl: PARoxetine (PAXIL) 10 mg tablet Take 10 mg by mouth. Disp: Rfl: Meloxicam AND Irritant Cntr #2 15 mg kit Disp: Rfl: furosemide (LASIX) 40 mg tablet Take 40 mg by mouth twice daily. Disp: Rfl: amLODIPine (NORVASC) 10 mg tablet Take 10 mg by mouth once daily. Disp: Rfl: No current facility-administere d medications for this visit. (currently taking) Anthropometrics: Height: Last 1 Encounter Ht Readings: Date: Ht: 02/06/2018 164 cm (5' 4.57 ) Current weight: Last 1 Encounter Wt Readings: Date: Wt: 02/06/2018 158.1 kg (348 lb 8 oz) Body mass index is 57.49 kg/m?. Resting Metabolic Rate: 2256 NUTRITION ASSESSMENT: Malnutrition Screening Significant unintentional weight loss? No Eating less than 75% of usual intake for more than 2 weeks? No RECOMMENDED MALNUTRITION DIAGNOSIS: NO MALNUTRITION IDENTIFIED Educational materials provided: none this visit READINESS TO LEARN Cognitive ability: Alert and oriented Motivation to learn: Eager Interested Family support: Unable to assess - Family not present Instruction provided to: Patient Patient learns best by: Multiple Methods Factors affecting learning: None Physical limitations affecting learning: None Likelihood of Adherence: High Patient presents with 9# weight loss since last visit; she is replacing 1-2 meals per day with Muscle Milk, snacks include nuts and fruit. Main meal is dinner- her recently diagnosed with diabetes and have been decreasing white carbs, increasing vegetables. Protein sources include chicken/poultry, steak, hamburger. Beverage includes exclusively water- 64-80 ounces water; has been practicing foods and fluids. Exercise is slowly increasing; she has knee pain and is trying to walk a little more and does aqua jogging 2/week 45 minutes. Patient meets the National Institutes of Health guidelines for weight loss surgery and has [email or web address] insurance and therefore may be required to complete 6 consecutive months of Nutrition Intervention for clearance for surgery. This is 4 of 6 required visits pending December visit from PCP Nutrition Diagnosis: Overweight Obesity, related to; decreased energy needs, as evidenced by BMI above normative standard for age and gender. Nutrition Intervention 04/03/2018: Modify type and amount of food eaten at meals and snacks. 1.? Continue to not skip meals. 2.? Use protein shake 1x per day to replace any skipped meals or for breakfast 3.? Use the Healthy Plate Method of portion control for lunch and dinner? 4 oz lean meat (fish, chicken, pork tenderloin, turkey, seafood, eggs/cheese? 1/2 plate non starchy vegetables (salad, greens, cabbage, spinach, brussels ?sprouts, broccoli,? carrots, celery, peppers, green beans, cauliflower) ? 1 cup starch/starchy vegetables (corn, peas, moss beans, winter squash, sweet ? potato, rice, pasta,? Potato) 4.? Continue physical activity with a goal of 150 min of aerobic exercise per week. Include 2-3 days of strength exercises 2-3 times/week. 5.? Drink 64 ounces per day water.? Fluids should follow these guidelines:? No carbonation, no caffeine, no calories, no alcohol.? Pre-op goal weight: 326# Protein goal: 73-91 grams Nutrition Monitoring AND Evaluation: 1-2# weight loss per week Criteria: weight check Need for Follow up: 1 month Referred/Supervised by: Darshan/Bridger MCCLAIN Billing Type: Re-assess/15 min 2 units SIGNATURE: Nkechi Woods, MS,RD,LD PATIENT NAME: Viviane Teresa DATE: April 03, 2018 TIME: 7:30 AM PAGER: Normal [facility] Vital Signs Date Time Vital Sign Value Performing Clinician Marisa garcia 12-20-2023 09:55-0400 Blood Pressure Location Francisco HELTON [facility] 12-20-2023 09:55-0400 Diastolic blood pressure 85 mm[Hg] Francisco HELTON [facility] 12-20-2023 09:55-0400 Heart rate 75 /min Francisco HELTON [facility] 12-20-2023 09:55-0400 Respiratory rate 16 /min Francisco HELTON [facility] 12-20-2023 09:55-0400 Systolic blood pressure 136 mm[Hg] Francisco [facility] 12-13-2023 10:26-0400 Blood Pressure Location Eldon SHIN [facility] 12-13-2023 10:26-0400 Body temperature 97.88 [degF] [facility]on [facility] 12-13-2023 10:26-0400 Diastolic blood pressure 64 mm[Hg] [facility]on SH[facility] 12-13-2023 10:26-0400 Heart rate 74 /min Eldon SH[facility] 12-13-2023 10:26-0400 Respiratory rate 18 /min Eldon SH[facility] 12-13-2023 10:26-0400 SaO2% (BldA) [Mass fraction] 97 % Eldon SH[facility] 12-13-2023 10:26-0400 Systolic blood pressure 114 mm[Hg] Eldon BR[facility] 12-10-2023 11:46-0400 Diastolic blood pressure 77 mm[Hg] [facility] 12-10-2023 11:46-0400 Heart rate 97 /min [facility] 12-10-2023 11:46-0400 Mean blood pressure 93 mm[Hg] [facility] 12-10-2023 11:46-0400 Respiratory rate 14 /min [facility] 12-10-2023 11:46-0400 SaO2% (BldA) [Mass fraction] 99 % [facility] 12-10-2023 11:46-0400 Systolic blood pressure 124 mm[Hg] [facility] 12-10-2023 10:58-0400 Diastolic blood pressure 84 mm[Hg] [facility] 12-10-2023 10:58-0400 Heart rate 92 /min [facility] 12-10-2023 10:58-0400 Mean blood pressure 102 mm[Hg] [facility] 12-10-2023 10:58-0400 Respiratory rate 16 /min [facility] 12-10-2023 10:58-0400 SaO2% (BldA) [Mass fraction] 100 % [facility] 12-10-2023 10:58-0400 Systolic blood pressure 137 mm[Hg] [facility] 12-10-2023 09:50-0400 Diastolic blood pressure 86 mm[Hg] [facility] 12-10-2023 09:50-0400 Heart rate 92 /min [facility] 12-10-2023 09:50-0400 Mean blood pressure 106 mm[Hg] [facility] 12-10-2023 09:50-0400 Respiratory rate 20 /min [facility] 12-10-2023 09:50-0400 SaO2% (BldA) [Mass fraction] 100 % [facility] 12-10-2023 09:50-0400 Systolic blood pressure 145 mm[Hg] [facility] 12-10-2023 08:50-0400 Heart rate 84 /min [facility] 12-10-2023 08:50-0400 Respiratory rate 16 /min [facility] 12-10-2023 08:44-0400 gluc 83 mg/dL [facility] 12-10-2023 08:44-0400 gluc [facility] 12-10-2023 08:44-0400 Respiratory rate 16 /min [facility] 12-10-2023 08:16-0400 Body temperature 97.34 [degF] [facility] 12-10-2023 08:16-0400 Heart rate 98 /min [facility] 12-10-2023 08:16-0400 Respiratory rate 16 /min [facility] 11-29-2023 14:52-0400 Blood Pressure Location [facility]on SH[facility] 11-29-2023 14:52-0400 Diastolic blood pressure 74 mm[Hg] [facility]on SH[facility] 11-29-2023 14:52-0400 Heart rate 67 /min Eldon SH[facility] 11-29-2023 14:52-0400 Respiratory rate 16 /min [facility]on SH[facility] 11-29-2023 14:52-0400 SaO2% (BldA) [Mass fraction] 97 % [facility]on [facility] 11-29-2023 14:52-0400 Systolic blood pressure 110 mm[Hg] [facility]on SH[facility] 08-30-2023 16:12-0400 Blood Pressure Location Christopher BROWN [facility] 08-30-2023 16:12-0400 Body temperature 98.24 [degF] Christopher BR[facility] 08-30-2023 16:12-0400 Diastolic blood pressure 78 mm[Hg] Christopher BR[facility] 08-30-2023 16:12-0400 Heart rate 70 /min Christopher [facility] 08-30-2023 16:12-0400 Respiratory rate 16 /min Christopher [facility] 08-30-2023 16:12-0400 SaO2% (BldA) [Mass fraction] 99 % Christopher BR[facility] 08-30-2023 16:12-0400 Systolic blood pressure 120 mm[Hg] Christopher BR[facility] 03-01-2023 15:51-0400 Blood Pressure Location Christopher BROWN [facility] 03-01-2023 15:51-0400 Diastolic blood pressure 78 mm[Hg] Christopher BROWN [facility] 03-01-2023 15:51-0400 Heart rate 72 /min Christopher BROWN [facility] 03-01-2023 15:51-0400 Respiratory rate 16 /min Christopher BROWN [facility] 03-01-2023 15:51-0400 SaO2% (BldA) [Mass fraction] 98 % Eldon SH[facility] 03-01-2023 15:51-0400 Systolic blood pressure 120 mm[Hg] Eldon SH[facility] 01-07-2023 08:45-0400 Blood Pressure Location Francisco HELTON [facility] 01-07-2023 08:45-0400 Diastolic blood pressure 73 mm[Hg] Francisco HELTON [facility] 01-07-2023 08:45-0400 Heart rate 70 /min Francisco HELTON [facility] 01-07-2023 08:45-0400 Respiratory rate 16 /min Francisco HELTON [facility] 01-07-2023 08:45-0400 Systolic blood pressure 109 mm[Hg] Francisco HELTON [facility] 10-17-2022 16:08-0400 Body height 167.6 cm Celso Arauz APRN.GREASE REFINING SUPERVISOR Work Phone: [facility] 10-17-2022 16:08-0400 Body weight 76.66 kg Celso Arauz APRN.GREASE REFINING SUPERVISOR Work Phone: [facility] 08-16-2022 08:07-0500 Diastolic blood pressure 74 mm[Hg] Eldon SH[facility] 08-16-2022 08:07-0500 Mean blood pressure 87 mm[Hg] Eldon SH[facility] 08-16-2022 08:07-0500 Systolic blood pressure 112 mm[Hg] Eldon SHIN [facility] 08-16-2022 07:47-0500 Blood Pressure Location Eldno SHIN [facility] 08-16-2022 07:47-0500 Diastolic blood pressure 80 mm[Hg] Eldon SH[facility] 08-16-2022 07:47-0500 Heart rate 92 /min Eldon SH[facility] 08-16-2022 07:47-0500 Respiratory rate 16 /min Eldon SH[facility] 08-16-2022 07:47-0500 SaO2% (BldA) [Mass fraction] 95 % Eldon SH[facility] 08-16-2022 07:47-0500 Systolic blood pressure 120 mm[Hg] Eldon SH[facility] 08-08-2022 12:06-0500 Body height 167.6 cm Celso Louden DIALYSIS EQUIPMENT TECHNICIAN.GREASE REFINING SUPERVISOR Work Phone: [facility] 08-08-2022 12:06-0500 Body weight 80.56 kg Celso Louden DIALYSIS EQUIPMENT TECHNICIAN.GREASE REFINING SUPERVISOR Work Phone: [facility] 05-15-2022 11:22-0500 Body height 167.6 cm Jennifer Bulow DIALYSIS EQUIPMENT TECHNICIAN.GREASE REFINING SUPERVISOR Work Phone: [facility] 05-15-2022 11:22-0500 Body weight 85.28 kg Jennifer Bulow DIALYSIS EQUIPMENT TECHNICIAN.GREASE REFINING SUPERVISOR Work Phone: [facility] 02-08-2022 10:04-0400 Diastolic blood pressure 78 mm[Hg] Macariomasha SHIN [facility] 02-08-2022 10:04-0400 Mean blood pressure 91 mm[Hg] Christopher BR[facility] 02-08-2022 10:04-0400 Systolic blood pressure 118 mm[Hg] Christopher BROWN [facility] 02-08-2022 09:59-0400 Diastolic blood pressure 82 mm[Hg] Christopher BROWN [facility] 02-08-2022 09:59-0400 Mean blood pressure 95 mm[Hg] Christopher BROWN [facility] 02-08-2022 09:59-0400 Systolic blood pressure 120 mm[Hg] Christopher BROWN [facility] 02-08-2022 09:36-0400 Blood Pressure Location Christopher BROWN [facility] 02-08-2022 09:36-0400 Diastolic blood pressure 80 mm[Hg] Christopher BROWN [facility] 02-08-2022 09:36-0400 Heart rate 63 /min Christopher BROWN [facility] 02-08-2022 09:36-0400 Respiratory rate 16 /min Christopher BROWN [facility] 02-08-2022 09:36-0400 SaO2% (BldA) [Mass fraction] 99 % Christopher BROWN [facility] 02-08-2022 09:36-0400 Systolic blood pressure 136 mm[Hg] Christopher BROWN [facility] 02-07-2022 09:08-0400 Body height 167.6 cm Celso Louden DIALYSIS EQUIPMENT TECHNICIAN.GREASE REFINING SUPERVISOR Work Phone: [facility] 02-07-2022 09:08-0400 Body weight 86.18 kg Celso Louden DIALYSIS EQUIPMENT TECHNICIAN.GREASE REFINING SUPERVISOR Work Phone: [facility] 01-08-2022 09:33-0400 Body weight 87.09 kg Lidia Lemus DIALYSIS EQUIPMENT TECHNICIAN.GREASE REFINING SUPERVISOR Work Phone: [facility] 12-15-2021 08:19-0400 Blood Pressure Location Francisco HELTON [facility] 12-15-2021 08:19-0400 Diastolic blood pressure 84 mm[Hg] Franciscodenisse HELTON [facility] 12-15-2021 08:19-0400 Heart rate 75 /min Franciscodenisse HELTON [facility] 12-15-2021 08:19-0400 Respiratory rate 16 /min Francisco HELTON [facility] 12-15-2021 08:19-0400 Systolic blood pressure 132 mm[Hg] Franciscodenisse HELTON [facility] 12-06-2021 09:54-0400 Body height 167.6 cm Celso Louden DIALYSIS EQUIPMENT TECHNICIAN.GREASE REFINING SUPERVISOR Work Phone: [facility] 12-06-2021 09:54-0400 Body weight 91.54 kg Celso Louden DIALYSIS EQUIPMENT TECHNICIAN.GREASE REFINING SUPERVISOR Work Phone: [facility] 12-06-2021 09:54-0400 Diastolic blood pressure 79 mm[Hg] Celso Louden DIALYSIS EQUIPMENT TECHNICIAN.GREASE REFINING SUPERVISOR Work Phone: [facility] 12-06-2021 09:54-0400 Heart rate 72 /min Celso Louden DIALYSIS EQUIPMENT TECHNICIAN.GREASE REFINING SUPERVISOR Work Phone: [facility] 12-06-2021 09:54-0400 Systolic blood pressure 119 mm[Hg] Celso Louden DIALYSIS EQUIPMENT TECHNICIAN.GREASE REFINING SUPERVISOR Work Phone: [facility] 11-01-2021 07:21-0400 Body weight 86.18 kg Celso Louden DIALYSIS EQUIPMENT TECHNICIAN.GREASE REFINING SUPERVISOR Work Phone: [facility] 10-02-2021 15:43-0400 Blood Pressure Location Eldon SHIN [facility] [place] 10-02-2021 15:43-0400 Diastolic blood pressure 84 mm[Hg] Eldon SHIN [facility] [place] 10-02-2021 15:43-0400 Heart rate 69 /min Eldon SHIN [facility] [place] 10-02-2021 15:43-0400 Respiratory rate 16 /min Eldon SHIN [facility] [place] 10-02-2021 15:43-0400 SaO2% (BldA) [Mass fraction] 100 % Eldon SHIN [facility] [place] 10-02-2021 15:43-0400 Systolic blood pressure 112 mm[Hg] Eldon SHIN [facility] [place] Encounters Encounter Date Encounter Type Care Provider Facility Start: 06-29-2024 ambulatory Francisco Christyi ty:HAFSA Garcia Start: 02-21-2024 ambulatory Eldon Christy ity:NEHEMIAS [place] Start: 01-16-2024 ambulatory Francisco HELTON Facili ty:[id number] Start: 12-20-2023 ambulatory Francisco Gonzalez HELTON Facili ty: [facility] Start: 12-20-2023 End: 12-20-2023 Patient encounter procedure Francisco HELTON [facility] Start: 12-17-2023 End: 12-17-2023 ambulatory Francisco HELTON Facility:[facility] Start: 12-17-2023 End: 12-17-2023 Patient encounter procedure Francisco Gonzalez HELTON [facility] Start: 12-13-2023 End: 12-13-2023 ambulatory Eldon SHIN Facility: [place] Start: 12-13-2023 End: 12-13-2023 Patient encounter procedure Eldon SHIN [facility] [place] Start: 12-10-2023 End: 12-10-2023 ambulatory Joe Green Facility: [place] Start: 12-10-2023 End: 12-10-2023 Patient encounter procedure Joe Green [facility] Start: 12-10-2023 End: 12-10-2023 Emergency department patient visit Claychristina Baugh Mckenna [facility] Start: 11-29-2023 End: 11-29-2023 ambulatory Eldon SHIN Facility: [place] Start: 11-29-2023 End: 11-29-2023 Patient encounter procedure Eldon SHIN [facility] [place] Start: 09-04-2023 End: 09-04-2023 ambulatory Eldon SHIN Facility:[facility] Start: 09-04-2023 End: 09-04-2023 Patient encounter procedure Eldon SHIN [facility] Start: 09-03-2023 End: 09-03-2023 ambulatory Eldon SHIN Facility:[facility] Start: 09-03-2023 End: 09-03-2023 Patient encounter procedure Eldon SHIN [facility] Start: 08-30-2023 End: 08-30-2023 ambulatory Macariomasha SHIN Facility:[facility] Start: 08-30-2023 End: 08-30-2023 Encounter for general adult medical examination with abnormal findings Eldon SHIN [facility] [place] Start: 08-30-2023 End: 08-30-2023 Patient encounter procedure Eldon SHIN [facility] [place] Start: 07-12-2023 ambulatory Celso Arauz APRN.CNP Work Phone: General Surgery Comment on above: Metformin Start: 07-03-2023 End: 07-03-2023 ambulatory MACARIOMASHA PEÑA KIP Facility:[facility] Start: 04-01-2023 End: 04-01-2023 ambulatory URVASHISABRINA PEÑA KIP Facility:[facility] Start: 03-01-2023 End: 03-01-2023 ambulatory Macariomasha SHIN Facility:[facility] Start: 03-01-2023 End: 03-01-2023 Patient encounter procedure Eldon SHIN [facility] [place] Start: 02-25-2023 End: 05-26-2023 ambulatory Abhi Dasilva Facility:[facility] Start: 01-28-2023 End: 01-28-2023 ambulatory Francisco HELTON Facility:[facility] Start: 01-28-2023 End: 01-28-2023 Lab Drop off Francisco Gonzalez HELTON [facility] Start: 01-07-2023 End: 01-07-2023 ambulatory Francisco HELTON Facility:[facility] Start: 01-07-2023 End: 01-07-2023 Patient encounter procedure Francisco Gonzalez HELTON [facility] Start: 01-03-2023 End: 01-03-2023 ambulatory JAYSHREEJAKE PRADO Facility:[facility] Start: 01-03-2023 End: 01-03-2023 Patient encounter procedure JAYSHREE PRADO [facility] Start: 12-06-2022 Refill Celso Arauz APRN.GREASE REFINING SUPERVISOR Work Phone: General Surgery Comment on above: Refill Request Start: 10-17-2022 End: 10-17-2022 ambulatory Celso Arauz APRN.GREASE REFINING SUPERVISOR Work Phone: General Surgery Comment on above: S/P gastric bypass ( Primary Dx); Overweight (BMI 25.0-29.9) Start: 10-17-2022 End: 10-17-2022 Telemedicine consultation with patient Celsojose l Morelandjose RAYMOND.GREASE REFINING SUPERVISOR Work Phone: [facility] Start: 08-24-2022 End: 08-24-2022 Patient encounter procedure CELSO ARAUZ APRN.GREASE REFINING SUPERVISOR [facility] Start: 08-16-2022 End: 08-16-2022 Encounter for general adult medical examination with abnormal findings Eldon SHIN [facility] [place] Start: 08-16-2022 End: 08-16-2022 Patient encounter procedure Eldon SHIN [facility] [place] Start: 08-08-2022 End: 08-08-2022 ambulatory ELDON SHIN Facility:[facility] Start: 08-08-2022 End: 08-08-2022 Admission to same day surgery center Celso Arauz APRN.GREASE REFINING SUPERVISOR Work Phone: General Surgery Comment on above: Encounter for surgic al aftercare following surgery of digestive system (Primary Dx); S/P gastric bypass Start: 08-08-2022 End: 08-08-2022 Telemedicine consultation with patient Celso Arauz APRN.GREASE REFINING SUPERVISOR Work Phone: [facility] Start: 07-10-2022 End: 07-10-2022 Lab Drop off JAYSHREE E JOHAN [facility] Start: 06-20-2022 End: 06-20-2022 Patient encounter procedure Eldon SHIN [facility] Start: 06-08-2022 ambulatory Celso Arauz APRN.GREASE REFINING SUPERVISOR Work Phone: General Surgery Comment on above: Lab question Start: 05-15-2022 End: 05-15-2022 ambulatory Jennifer Rollins DIALYSIS EQUIPMENT TECHNICIAN.GREASE REFINING SUPERVISOR Work Phone: Endocrinology BMI Comment on above: S/P gastric bypass ( Primary Dx); Class 1 obesity with body mass index (BMI) of 30.0 to 30.9 in adult, unspecified obesity type, unspecified whether serious comorbidity present Start: 05-15-2022 End: 05-15-2022 Telemedicine consultation with patient Jennifer Rollins APRN.GREASE REFINING SUPERVISOR Work Phone: [facility] Start: 02-08-2022 End: 02-08-2022 Encounter for general adult medical examination with abnormal findings Eldon SHIN [facility] [place] Start: 02-08-2022 End: 02-08-2022 Patient encounter procedure Eldon SHIN [facility] [place] Start: 02-07-2022 End: 02-07-2022 ambulatory Celso Arauz APRN.GREASE REFINING SUPERVISOR Work Phone: General Surgery Comment on above: Class 1 obesity with body mass index (BMI) of 30.0 to 30.9 in adult, unspecified obesity type, unspecified whether serious comorbidity present (Primary Dx) Start: 02-07-2022 End: 02-07-2022 Telemedicine consultation with patient Celsojose l Morelandjose CASIANON.GREASE REFINING SUPERVISOR Work Phone: [facility] Start: 01-08-2022 End: 01-08-2022 ambulatory Lidia Zacharydamon DIALYSIS EQUIPMENT TECHNICIAN.GREASE REFINING SUPERVISOR Work Phone: General Surgery Comment on above: Class 1 obesity with body mass index (BMI) of 30.0 to 30.9 in adult, unspecified obesity type, unspecified whether serious comorbidity present Start: 01-08-2022 End: 01-08-2022 Telemedicine consultation with patient Lidia Lemus APRN.GREASE REFINING SUPERVISOR Work Phone: [facility] Start: 12-15-2021 End: 12-15-2021 Patient encounter procedure Francisco HELTON [facility] Start: 12-13-2021 End: 12-13-2021 Patient encounter procedure Francisco HELTON [facility] Start: 12-06-2021 End: 12-06-2021 Patient encounter procedure Celso Arauz DIALYSIS EQUIPMENT TECHNICIAN.GREASE REFINING SUPERVISOR Work Phone: General Surgery Comment on above: Class 1 obesity with body mass index (BMI) of 30.0 to 30.9 in adult, unspecified obesity type, unspecified whether serious comorbidity present (Primary Dx) Start: 11-01-2021 End: 11-01-2021 ambulatory Celso Louden DIALYSIS EQUIPMENT TECHNICIAN.GREASE REFINING SUPERVISOR Work Phone: General Surgery Comment on above: Class 1 obesity with body mass index (BMI) of 30.0 to 30.9 in adult, unspecified obesity type, unspecified whether serious comorbidity present (Primary Dx); S/P gastric bypass; History of sleep apnea Labs Start: 11-01-2021 E-mail encounter fro m caregiver Celso Arauz APRN.GREASE REFINING SUPERVISOR Work Phone: [facility] Start: 11-01-2021 End: 11-01-2021 Telemedicine consultation with patient Celso Arauz APRN.GREASE REFINING SUPERVISOR Work Phone: [facility] Start: 10-02-2021 End: 10-02-2021 Patient encounter procedure Eldon SHIN [facility] [place] Start: 2021 End: 2021 Patient encounter procedure Evan Mason MD Work Phone: Plastic Surgery Comment on above: Post-operative state (Primary Dx) Start: 08-11-2020 Patient encounter procedure FRANCISCO HELTON Facility:[facility] Start: 08-04-2020 End: 08-04-2020 Patient encounter procedure FRANCISCO HELTON Facility:[facility] Start: 07-28-2020 End: 07-28-2020 Patient encounter procedure FRANCISCO HELTON Facility:[facility] Procedures Date Procedure Procedure Detail Performing Clinician Start: 10-28-2020 Colonoscopy Gianni SHIN Start: 08-31-2020 Cystoscopy Gianni SHIN Start: 08-11-2020 Extracorporeal shock wave lithotripsy of calculus of kidney Eldon SHIN Start: 08-04-2020 Extracorporeal shock wave lithotripsy of calculus of kidney Eldon SHIN Start: 07-28-2020 Extracorporeal shock wave lithotripsy of calculus of kidney Eldon SHIN Start: 08-05-2018 Bariatric operative procedure Eldon SHIN Comment on above: Parker-EN-Y Start: 07-30-2018 Antibody screen Comment on above: Performed By: #### T [id number] ####[facility] [id number] [place], [place] [id number] Start: 02-05-2014 right carpal tunnel release Eldon SHIN Start: 11-06-2013 left carpal tunnel release Eldon SHIN Start: 02-18-2009 section Macario SHIN Comment on above: x 2 Start: 06-10-1999 Arthroscopy of knee Chr mark SHIN Start: 06-10-1997 Operation on nasal septum Eldon SHIN Start: 06-10-1995 Arthroscopy of wrist Ch rismasoud SHIN Start: 06-10-1995 Operation on nasal septum Eldon SHIN End: 01-29-2011 H/O: section History of - section( Confirmed ) Eldon SHIN Other bilateral liga tion and division of fallopian tubes Eldon SHIN Plastic excision of skin of abdominal wall Eldon SHIN Removal of skin flap Frandy SHIN Comment on above: bilat arms Vaginal hysterectomy Frandy SHIN Plan of Treatment Date Care Activity Detail Author Start: 08-16-2032 Urine microalbumin profile DTaP,Tdap,Td Vaccine (3 - Td or Tdap) [facility] Start: 02-08-2023 Covid-19 Vaccine ( season) Covid-19 Vaccine ( season) [facility] Start: 02-08-2023 Influenza vaccination Influenza Vacc ine (#1) [facility] Start: 08-08-2022 End: 10-08-2022 25-hydroxyvitamin D3 [Mass/volume] in Serum or Plasma VITAMIN D 25 HYDROXY Lab Routine S/P gastric bypass Expected: 08/08/2022, Expires: 10/08/2022 [facility] Work Phone: Comment on above: Expected: 08/08/2022 , Expires: 10/08/2022 Start: 08-08-2022 End: 10-08-2022 CBC W Auto Differential panel - Blood CBC + DIFF Lab Routine S/P gastric bypass Expected: 08/08/2022, Expires: 10/08/2022 [facility] Work Phone: Comment on above: Expected: 08/08/2022 , Expires: 10/08/2022 Start: 08-08-2022 End: 10-08-2022 Cobalamin (Vitamin B12) [Mass/volume] in Serum or Plasma VITAMIN B12 BLOOD Lab Routine S/P gastric bypass Expected: 08/08/2022, Expires: 10/08/2022 [facility] Work Phone: Comment on above: Expected: 08/08/2022 , Expires: 10/08/2022 Start: 08-08-2022 End: 10-08-2022 Comprehensive metabolic 2000 panel - Serum or Plasma COMP METABOLIC PANEL Lab Routine S/P gastric bypass Expected: 08/08/2022, Expires: 10/08/2022 [facility] Work Phone: Comment on above: Expected: 08/08/2022 , Expires: 10/08/2022 Start: 08-08-2022 End: 10-08-2022 Ferritin [Mass/volume] in Serum or Plasma FERRITIN BLD Lab Routine S/P gastric bypass Expected: 08/08/2022, Expires: 10/08/2022 [facility] Work Phone: Comment on above: Expected: 08/08/2022 , Expires: 10/08/2022 Start: 08-08-2022 End: 10-08-2022 Folate [Mass/volume] in Serum or Plasma FOLATE SERUM Lab Routine S/P gastric bypass Expected: 08/08/2022, Expires: 10/08/2022 [facility] Work Phone: Comment on above: Expected: 08/08/2022 , Expires: 10/08/2022 Start: 08-08-2022 End: 10-08-2022 Hemoglobin A1c in Blood HGB A1C Lab Routine S/P gastric bypass Expected: 08/08/2022, Expires: 10/08/2022 [facility] Work Phone: Comment on above: Expected: 08/08/2022 , Expires: 10/08/2022 Start: 08-08-2022 End: 10-08-2022 Insulin [Units/volume] in Serum or Plasma INSULIN ASSAY BLOOD Lab Routine S/P gastric bypass Expected: 08/08/2022, Expires: 10/08/2022 [facility] Work Phone: Comment on above: Expected: 08/08/2022 , Expires: 10/08/2022 Start: 08-08-2022 End: 10-08-2022 Iron and Iron binding capacity panel - Serum or Plasma IRON + TIBC Lab Routine S/P gastric bypass Expected: 08/08/2022, Expires: 10/08/2022 [facility] Work Phone: Comment on above: Expected: 08/08/2022 , Expires: 10/08/2022 Start: 08-08-2022 End: 10-08-2022 Lipid 1996 panel - Serum or Plasma LIPID PANEL BASIC Lab Routine S/P gastric bypass Expected: 08/08/2022, Expires: 10/08/2022 [facility] Work Phone: Comment on above: Expected: 08/08/2022 , Expires: 10/08/2022 Start: 08-08-2022 End: 10-08-2022 Parathyrin.intact [Mass/volume] in Serum or Plasma PTH INTACT BLD Lab Routine S/P gastric bypass Expected: 08/08/2022, Expires: 10/08/2022 [facility] Work Phone: Comment on above: Expected: 08/08/2022 , Expires: 10/08/2022 Start: 08-08-2022 End: 10-08-2022 Thyrotropin [Units/volume] in Serum or Plasma TSH BLD Lab Routine S/P gastric bypass Expected: 08/08/2022, Expires: 10/08/2022 [facility] Work Phone: Comment on above: Expected: 08/08/2022 , Expires: 10/08/2022 Start: 08-08-2022 End: 10-08-2022 VITAMIN B1 (THIAMINE), WHOLE BLOOD VITAMIN B1 (THIAMINE), WHOLE BLOOD Lab Routine S/P gastric bypass Expected: 08/08/2022, Expires: 10/08/2022 [facility] Work Phone: Comment on above: Expected: 08/08/2022 , Expires: 10/08/2022 Start: 06-12-2022 End: 08-12-2022 Basic metabolic 2000 panel - Serum or Plasma BASIC METABOLIC PNL Lab Routine Medication management Expected: 06/12/2022, Expires: 08/12/2022 [facility] Work Phone: Comment on above: Expected: 06/12/2022 , Expires: 08/12/2022 Start: 02-08-2022 Influenza vaccination INFLUENZA (#1) [facility] Start: 06-07-2021 COVID-19 VACCINE (4 - Booster for Moderna series) COVID-19 VACCINE (4 - Booster for Moderna series) [facility] Start: 06-07-2021 COVID-19 VACCINE (5 - Booster for Moderna series) COVID-19 VACCINE (5 - Booster for Moderna series) [facility] Start: 2019 Mammography MAMMOGRAM [facility] Start: 2019 Screening for malign ant neoplasm of breast Mammogram Screening [facility] Start: 09-13-2009 HPV TESTING HPV TESTING [facility] Start: 09-13-2009 Screening for malign ant neoplasm of cervix HPV Testing [facility] Start: 09-13-2000 PAP TESTING PAP TESTING [facility] Start: 09-13-2000 Screening for malign ant neoplasm of cervix Pap Testing [facility] Start: 09-13-1998 Urine microalbumin profile DTAP,TDAP,TD (1 - Tdap) [facility] Start: 09-13-1997 HEPATITIS C SCREENING HEPATITIS C [facility] Start: 09-13-1997 Hepatitis C screening Hepatitis C [facility] Start: 09-13-1997 HIV SCREENING HIV SCREENING [facility] Start: 09-13-1997 HIV screening HIV Screening [facility] Start: 1979 HEPATITIS B (1 of 3 - 3-dose series) HEPATITIS B (1 of 3 - 3-dose series) [facility] Start: 1979 Hepatitis B Vaccine (1 of 3 - 3-dose series) Hepatitis B Vaccine (1 of 3 - 3-dose series) [facility] CALCIUM 24 HR URINE CALCIUM 24 H R URINE Lab Routine S/P gastric bypass Ordered: 11/08/2021 [facility] Work Phone: Comment on above: Ordered: 11/08/2021 End: 11-01-2022 HOME SLEEP APNEA TEST (HSAT) HOME SLEEP APNEA TEST (HSAT) Procedures Routine History of sleep apnea 1 Occurrences starting 11/01/2021 until 11/01/2022 [facility] Work Phone: Comment on above: 1 Occurrences starti ng 11/01/2021 until 11/01/2022 [facility] Immunizations Immunization Date Immunization Notes Care Provider Phyllis tomas 04-08-2023 influenza virus vaccine, unspecified formulation Eldon SHIN [facility] [place] Comment on above: Result Comment: gerardon @ [facility] 08-16-2022 tetanus toxoid, reduced diphtheria toxoid, and acellular pertussis vaccine, adsorbed Eldon SHIN [facility] [place] 03-23-2022 COVID-19, mRNA, LNP- S, bivalent, PF, 50 mcg/0.5 mL dose Eldon SHIN [facility] 03-23-2022 influenza virus vaccine, unspecified formulation Eldon SHIN [facility] Comment on above: Reason for Medicatio n: Prophylaxis 04-12-2021 COVID-19, mRNA, LNP- S, PF, 100 mcg or 50 mcg dose; Translations: [SARS-CoV-2 (COVID-19) mRNA-1273 vaccine] Eldon SHIN [facility] [place] 03-15-2021 influenza virus vaccine, unspecified formulation; Translations: [Fluzone PF Quadrivalent ] Eldon SHIN [facility] [place] Comment on above: Reason for Medicatio n: Prophylaxis 07-07-2020 SARS-CoV-2 (COVID-19 ) mRNA-1273 vaccine Eldon SHIN [facility] [place] Comment on above: Result Comment: rec' d at work 07-06-2020 COVID-19 original vaccine, full dose, monovalent (MODERNA) Celso Arauz APRN.CNP Work Phone: [facility] 06-07-2020 SARS-CoV-2 (COVID-19 ) mRNA-1273 vaccine Eldon SHIN [facility] [place] Comment on above: Result Comment: rec' d at work 03-21-2020 influenza virus vaccine, unspecified formulation JAYSHREE PRADO [facility] 03-10-2020 influenza virus vaccine, unspecified formulation Eldon SHIN [facility] [place] 04-20-2019 influenza virus vaccine, unspecified formulation Macariomasha SHIN [facility] [place] 03-10-2018 influenza virus vaccine, unspecified formulation Evan Mason MD Work Phone: [facility] 03-11-2017 influenza virus vaccine, unspecified formulation JAYSHREE PRADO [facility] 03-11-2017 influenza, injectabl e, quadrivalent, preservative free Evan Mason MD Work Phone: [facility] 03-12-2016 pneumococcal polysaccharide vaccine, 23 valent Evan Mason MD Work Phone: [facility] 05-22-2012 influenza virus vaccine, unspecified formulation Eldon SHIN [facility] [place] 03-28-2009 influenza virus vaccine, H1N1, live JAYSHREE PRADO [facility] 03-28-2009 novel [id number], live virus for nasal administration Evan Mason MD Work Phone: [facility] 02-19-2009 tetanus toxoid, reduced diphtheria toxoid, and acellular pertussis vaccine, adsorbed Eldon SHIN [facility] [place] NEGATED: Highlighted row has not occurred!08-30-2023 influenza virus vaccine, unspecified formulation Eldon SHIN [facility] [place] Comment on above: Result Comment: gvn NEGATED: Highlighted row has not occurred!03-01-2023 influenza virus vaccine, unspecified formulation Eldon SHIN [facility] [place] Payers Date Payer Category Payer Unknown MMO MMO [employer] [id number] 2019-Present [phone] [address] [place] [address] PPO [id number] 2019 Unknown [id number] 1979 Unknown [id number] [id number] 1979 Unknown [id number] 2.16.840.1.124668.3.579.2.59 1979 Unknown [id number] 2.16.840.1.897558.3.579.2.59 1979 Unknown [id number] 2.16.840.1.021194.3.579.272 1979 Unknown [id number] 2.840.1.430946.3.579.2 1979 Unknown [id number] 2.840.1.290500.3.579.2 1979 Unknown [id number] 2.840.1.712659.3.579.2 1979 Unknown [id number] 2.840.1.110878.3.579.2 1979 Unknown [id number] 2.840.1.927730.3.579.2 1979 Unknown [id number] 2.16840.1.941919.3.579.272 1979 Unknown [id number] 2.840.1.996172.3.579.2 1979 Unknown [id number] 2.16.840.1.344931.3.579.272 1979 Unknown [id number] 2.16.840.1.436457.3.579.2 1979 Unknown [id number] 2.16.840.1.672621.3.579.2 1979 Unknown [id number] 2.16.840.1.462202.3.579.2727 1979 Unknown [id number] 2.16.840.1.841027.3.579.2.727 1979 Unknown [id number] 2.16.840.1.827034.3.579.2.727 1979 Unknown [id number] 2.16.840.1.835467.3.579.2.727 1979 Unknown [id number] 2.16.840.1.935094.3.579.2.727 1979 Unknown [id number] [id number] 1959 Unknown [id number] Social History Date Type Detail Facility Start: 02-05-2018 End: 12-20-2023 Tobacco smoking status NHIS Never smoked tobacco [facility] Start: 02-05-2018 End: 05-15-2022 Tobacco use and exposure Smokeless tobacco non-user [facility] Start: 04-14-2021 End: 07-16-2023 Alcohol intake Current drinker of alcohol (finding) [facility] Start: 04-14-2021 History SDOH Alcohol Comment Occasional glass wine with dinner [facility] Start: 1980 Sex Assigned At Female C [facility] Start: 09-04-2021 End: 12-06-2021 Exposure to SARS-CoV-2 (event) Not sure [facility] Tobacco smoking status Never [facility] Start: 10-17-2022 End: 07-16-2023 Sex Assigned At Female [facility] [place] Start: 10-17-2022 End: 07-16-2023 History of Social function [facility] Work Phone: Start: 04-08-2021 Gender identity Identifies as female gender (finding) [facility] Start: 04-08-2021 Sexual orientation Heterosexual (fin jerica) [facility] Functional Status Date Assessment Result Facility 12-20-2023 Functional Status N/A [facility] 12-13-2023 Functional Status N/A [facility] 12-10-2023 Functional Status N/A [facility] 11-29-2023 Functional Status N/A [facility] 08-30-2023 Functional Status N/A [facility] 03-01-2023 Functional Status N/A [facility] 01-07-2023 Functional Status N/A [facility] 08-16-2022 Functional Status N/A [facility] 02-08-2022 Functional Status N/A [facility] 12-15-2021 Functional Status N/A [facility] Clinical Notes 08-03-2018 to 12-20-2023 Note Date & Type Note Facility 12-20-2023 Hospital Discharg e instructions Patient Education 12/20/2023 10:33:00 Lithotripsy Lithotripsy Lithotripsy is a treatment that can help break up kidney stones that are too large to pass on their own. This is a nonsurgical procedure that crushes a kidney stone with shock waves. These shock waves pass through your body and focus on the kidney stone. They cause the kidney stone to break up into smaller pieces while it is still in the urinary tract. The smaller pieces of stone can pass more easily out of your body in the urine. Tell a health care provider about: Any allergies you have. All medicines you are taking, including vitamins, herbs, eye drops, creams, and hkbz-fqj-xejldhp medicines. Any problems you or family members have had with anesthetic medicines. Any blood disorders you have. Any surgeries you have had. Any medical conditions you have. Whether you are or may be . What are the risks? Generally, this is a safe procedure. However, problems may occur, including: Infection. Bleeding from the kidney. Bruising of the kidney or skin. Scarring of the kidney, which can lead to: ?Increased blood pressure. ?Poor kidney function. ?Return (recurrence) of kidney stones. Damage to other structures or organs, such as the liver, colon, spleen, or pancreas. Blockage (obstruction) of the tube that carries urine from the kidney to the bladder (ureter). Failure of the kidney stone to break into pieces (fragments). What happens before the procedure? Staying hydrated Follow instructions from your health care provider about hydration, which may include: Up to 2 hours before the procedure you may continue to drink clear liquids, such as water, clear fruit juice, black coffee, and plain tea. Eating and drinking restrictions Follow instructions from your health care provider about eating and drinking, which may include: 8 hours before the procedure stop eating heavy meals or foods, such as meat, fried foods, or fatty foods. 6 hours before the procedure stop eating light meals or foods, such as toast or cereal. 6 hours before the procedure stop drinking milk or drinks that contain milk. 2 hours before the procedure stop drinking clear liquids. Medicines Ask your health care provider about: Changing or stopping your regular medicines. This is especially important if you are taking diabetes medicines or blood thinners. Taking medicines such as aspirin and ibuprofen. These medicines can thin your blood. Do not take these medicines unless your health care provider tells you to take them. Taking xmcp-mqn-qdwpjzq medicines, vitamins, herbs, and supplements. Tests You may have tests, such as: Blood tests. Urine tests. Imaging tests, such as a CT scan. General instructions Plan to have someone take you home from the hospital or clinic. If you will be going home right after the procedure, plan to have someone with you for 24 hours. Ask your health care provider what steps will be taken to help prevent infection. These may include washing skin with a germ-killing soap. What happens during the procedure? An IV will be inserted into one of your veins. You will be given one or more of the following: ?A medicine to help you relax (sedative). ?A medicine to make you fall asleep (general anesthetic). A water-filled cushion may be placed behind your kidney or on your abdomen. In some cases, you may be placed in a tub of lukewarm water. Your body will be positioned in a way that makes it easy to target the kidney stone. An X-ray or ultrasound exam will be done to locate your stone. Shock waves will be aimed at the stone. If you are awake, you may feel a tapping sensation as the shock waves pass through your body. A flexible tube with holes in it (stent) may be placed in the ureter. This will help keep urine flowing from the kidney if the fragments of the stone have been blocking the ureter. The procedure may vary among health care providers and hospitals. What happens after the procedure? You may have an X-ray to see whether the procedure was able to break up the kidney stone and how much of the stone has passed. If large stone fragments remain after treatment, you may need to have a second procedure at a later time. Your blood pressure, heart rate, breathing rate, and blood oxygen level will be monitored until you leave the hospital or clinic. You may be given antibiotics or pain medicine as needed. If a stent was placed in your ureter during surgery, it may stay in place for a few weeks. You may need to strain your urine to collect pieces of the kidney stone for testing. You will need to drink plenty of water. If you were given a sedative during the procedure, it can affect you for several hours. Do not drive or operate machinery until your health care provider says that it is safe. Summary Lithotripsy is a treatment that can help break up kidney stones that are too large to pass on their own. Lithotripsy is a nonsurgical procedure that crushes a kidney stone with shock waves. Generally, this is a safe procedure. However, problems may occur, including damage to the kidney or other organs, infection, or obstruction of the tube that carries urine from the kidney to the bladder (ureter). You may have a stent placed in your ureter to help drain your urine. This stent may stay in place for a few weeks. After the procedure, you will need to drink plenty of water. You may be asked to strain your urine to collect pieces of the kidney stone for testing. This information is not intended to replace advice given to you by your health care provider. Make sure you discuss any questions you have with your health care provider. Document Revised: 04/23/2022 Document Reviewed: 01/29/2022 [employer] Patient Education 2022 [employer] 12/20/2023 10:25:49 Dietary Guidelines to Help Prevent Kidney Stones Dietary Guidelines to Help Prevent Kidney Stones Kidney stones are deposits of minerals and salts that form inside your kidneys. Your risk of developing kidney stones may be greater depending on your diet, your lifestyle, the medicines you take, and whether you have certain medical conditions. Most people can lower their risks of developing kidney stones by following these dietary guidelines. Your dietitian may give you more specific instructions depending on your overall health and the type of kidney stones you tend to develop. What are tips for following this plan? Reading food labels Choose foods with no salt added or low-salt labels. Limit your salt (sodium) intake to less than 1,500 mg a day. Choose foods with calcium for each meal and snack. Try to eat about 300 mg of calcium at each meal. Foods that contain 200 500 mg of calcium a serving include: ?8 oz (237 mL) of milk, qkxjkbb-flrnmpbxpetj-sogel milk, and calcium-fortifiedfruit juice. Calcium-fortified means that calcium has been added to these drinks. ?8 oz (237 mL) of kefir, yogurt, and soy yogurt. ?4 oz (114 g) of tofu. ?1 oz (28 g) of cheese. ?1 cup (150 g) of dried figs. ?1 cup (91 g) of cooked broccoli. ?One 3 oz (85 g) can of sardines or mackerel. Most people need 1,000 1,500 mg of calcium a day. Talk to your dietitian about how much calcium is recommended for you. Shopping Buy plenty of fresh fruits and vegetables. Most people do not need to avoid fruits and vegetables, even if these foods contain nutrients that may contribute to kidney stones. When shopping for convenience foods, choose: ?Whole pieces of fruit. ?Pre-made salads with dressing on the side. ?Low-fat fruit and yogurt smoothies. Avoid buying frozen meals or prepared deli foods. These can be high in sodium. Look for foods with live cultures, such as yogurt and kefir. Choose high-fiber grains, such as whole-wheat breads, oat bran, and wheat cereals. Cooking Do not add salt to food when cooking. Place a salt shaker on the table and allow each person to add their own salt to taste. Use vegetable protein, such as beans, textured vegetable protein (TVP), or tofu, instead of meat in pasta, casseroles, and soups. Meal planning Eat less salt, if told by your dietitian. To do this: ?Avoid eating processed or pre-made food. ?Avoid eating fast food. Eat less animal protein, including cheese, meat, poultry, or fish, if told by your dietitian. To do this: ?Limit the number of times you have meat, poultry, fish, or cheese each week. Eat a diet free of meat at least 2 days a week. ?Eat only one serving each day of meat, poultry, fish, or seafood. ?When you prepare animal proteins, cut pieces into small portion sizes. For most meat and fish, one serving is about the size of the palm of your hand. Eat at least five servings of fresh fruits and vegetables each day. To do this: ?Keep fruits and vegetables on hand for snacks. ?Eat one piece of fruit or a handful of berries with breakfast. ?Have a salad and fruit at lunch. ?Have two kinds of vegetables at dinner. You may be told to limit foods that are high in a substance called oxalate. These include: ?Spinach (cooked), rhubarb, beets, sweet potatoes, and [place] chard. ?Peanuts. ?Potato chips, eritrean fries, and baked potatoes with skin on. ?Nuts and nut products. ?Chocolate. If you regularly take a diuretic medicine, make sure to eat at least 1 or 2 servings of fruits or vegetables that are high in potassium each day. These include: ?Avocado. ?Banana. ?Trinity, prune, carrot, or tomato juice. ?Baked potato. ?Cabbage. ?Beans and split peas. Lifestyle Drink enough fluid to keep your urine pale yellow. This is the most important thing you can do. Spread your fluid intake throughout the day. If you drink alcohol: ?Limit how much you have to: ?0 1 drink a day for women who are not . ?0 2 drinks a day for men. ?Know how much alcohol is in your drink. In the [place] one drink equals one 12 oz bottle of beer (355 mL), one 5 oz glass of wine (148 mL), or one 1 oz glass of hard liquor (44 mL). Lose weight if told by your health care provider. Work with your dietitian to find an eating plan and weight loss strategies that work best for you. General information Talk to your health care provider and dietitian about taking daily supplements. Depending on your health and the cause of your kidney stones, you may be told: ?Do not take high-dose supplements of vitamin C (1,000 mg a day or more). ?To take a calcium supplement. ?To take a daily probiotic supplement. ?To take other supplements such as magnesium, fish oil, or vitamin B6. Take klyb-brv-drkubgt and prescription medicines only as told by your health care provider. These include supplements. What foods should I limit? Limit your intake of the following foods, or eat them as told by your dietitian. Vegetables Spinach. Rhubarb. Beets. Canned vegetables. Pickles. Olives. Baked potatoes with skin. Grains Wheat bran. Baked goods. Salted crackers. Cereals high in sugar. Meats and other proteins Nuts. Nut butters. Large portions of meat, poultry, or fish. Salted, precooked, or cured meats, such as sausages, meat loaves, and hot dogs. Dairy Cheeses. Beverages Regular soft drinks. Regular vegetable juice. Seasonings and condiments Seasoning blends with salt. Salad dressings. Soy sauce. Ketchup. Barbecue sauce. Other foods Canned soups. Canned pasta sauce. Casseroles. Pizza. Lasagna. Frozen meals. Potato chips. Slovak fries. The items listed above may not be a complete list of foods and beverages you should limit. Contact a dietitian for more information. What foods should I avoid? Talk to your dietitian about specific foods you should avoid based on the type of kidney stones you have and your overall health. Fruits Grapefruit. The item listed above may not be a complete list of foods and beverages you should avoid. Contact a dietitian for more information. Summary Kidney stones are deposits of minerals and salts that form inside your kidneys. You can lower your risk of kidney stones by making changes to your diet. The most important thing you can do is drink enough fluid. Drink enough fluid to keep your urine pale yellow. Talk to your dietitian about how much calcium you should have each day, and eat less salt and animal protein as told by your dietitian. This information is not intended to replace advice given to you by your health care provider. Make sure you discuss any questions you have with your health care provider. Document Revised: 09/06/2022 Document Reviewed: 09/06/2022 [employer] Patient Education 2022 [employer]. Follow Up Care 01/07/2023 09:43:45 With:SUNITHA MARTE, Francisco Gonzalez, URL Address: [address] [place], [place] [id number]- When: Unknown [facility] Radha 12-11-2023 Hospital Discharg e instructions Patient Education 12/11/2023 15:50:26 Migraine Headache Migraine Headache A migraine headache is an intense, throbbing pain on one side or both sides of the head. Migraine headaches may also cause other symptoms, such as nausea, vomiting, and sensitivity to light and noise. A migraine headache can last from 4 hours to 3 days. Talk with your doctor about what things may bring on (trigger) your migraine headaches. What are the causes? The exact cause of this condition is not known. However, a migraine may be caused when nerves in the brain become irritated and release chemicals that cause inflammation of blood vessels. This inflammation causes pain. This condition may be triggered or caused by: Drinking alcohol. Smoking. Taking medicines, such as: ?Medicine used to treat chest pain (nitroglycerin). ? control pills. ?Estrogen. ?Certain blood pressure medicines. Eating or drinking products that contain nitrates, glutamate, aspartame, or tyramine. Aged cheeses, chocolate, or caffeine may also be triggers. Doing physical activity. Other things that may trigger a migraine headache include: Menstruation. . Hunger. Stress. Lack of sleep or too much sleep. Weather changes. Fatigue. What increases the risk? The following factors may make you more likely to experience migraine headaches: Being a certain age. This condition is more common in people who are 25 55 years old. Being female. Having a family history of migraine headaches. Being . Having a mental health condition, such as depression or anxiety. Being obese. What are the signs or symptoms? The main symptom of this condition is pulsating or throbbing pain. This pain may: Happen in any area of the head, such as on one side or both sides. Interfere with daily activities. Get worse with physical activity. Get worse with exposure to bright lights or loud noises. Other symptoms may include: Nausea. Vomiting. Dizziness. General sensitivity to bright lights, loud noises, or smells. Before you get a migraine headache, you may get warning signs (an aura). An aura may include: Seeing flashing lights or having blind spots. Seeing bright spots, halos, or zigzag lines. Having tunnel vision or blurred vision. Having numbness or a tingling feeling. Having trouble talking. Having muscle weakness. Some people have symptoms after a migraine headache (postdromal phase), such as: Feeling tired. Difficulty concentrating. How is this diagnosed? A migraine headache can be diagnosed based on: Your symptoms. A physical exam. Tests, such as: ?CT scan or an MRI of the head. These imaging tests can help rule out other causes of headaches. ?Taking fluid from the spine (lumbar puncture) and analyzing it (cerebrospinal fluid analysis, or CSF analysis). How is this treated? This condition may be treated with medicines that: Relieve pain. Relieve nausea. Prevent migraine headaches. Treatment for this condition may also include: Acupuncture. Lifestyle changes like avoiding foods that trigger migraine headaches. Biofeedback. Cognitive behavioral therapy. Follow these instructions at home: Medicines Take todd-see-hxydgwv and prescription medicines only as told by your health care provider. Ask your health care provider if the medicine prescribed to you: ?Requires you to avoid driving or using heavy machinery. ?Can cause constipation. You may need to take these actions to prevent or treat constipation: ?Drink enough fluid to keep your urine pale yellow. ?Take eggc-urt-ciwcubt or prescription medicines. ?Eat foods that are high in fiber, such as beans, whole grains, and fresh fruits and vegetables. ?Limit foods that are high in fat and processed sugars, such as fried or sweet foods. Lifestyle Do not drink alcohol. Do not use any products that contain nicotine or tobacco, such as cigarettes, e-cigarettes, and chewing tobacco. If you need help quitting, ask your health care provider. Get at least 8 hours of sleep every night. Find ways to manage stress, such as meditation, deep breathing, or yoga. General instructions Keep a journal to find out what may trigger your migraine headaches. For example, write down: ?What you eat and drink. ?How much sleep you get. ?Any change to your diet or medicines. If you have a migraine headache: ?Avoid things that make your symptoms worse, such as bright lights. ?It may help to lie down in a dark, quiet room. ?Do not drive or use heavy machinery. ?Ask your health care provider what activities are safe for you while you are experiencing symptoms. Keep all follow-up visits as told by your health care provider. This is important. Contact a health care provider if: You develop symptoms that are different or more severe than your usual migraine headache symptoms. You have more than 15 headache days in one month. Get help right away if: Your migraine headache becomes severe. Your migraine headache lasts longer than 72 hours. You have a fever. You have a stiff neck. You have vision loss. Your muscles feel weak or like you cannot control them. You start to lose your balance often. You have trouble walking. You faint. You have a seizure. Summary A migraine headache is an intense, throbbing pain on one side or both sides of the head. Migraines may also cause other symptoms, such as nausea, vomiting, and sensitivity to light and noise. This condition may be treated with medicines and lifestyle changes. You may also need to avoid certain things that trigger a migraine headache. Keep a journal to find out what may trigger your migraine headaches. Contact your health care provider if you have more than 15 headache days in a month or you develop symptoms that are different or more severe than your usual migraine headache symptoms. This information is not intended to replace advice given to you by your health care provider. Make sure you discuss any questions you have with your health care provider. Document Revised: 09/18/2019 Document Reviewed: 07/09/2019 [employer] Patient Education 2022 [employer]. Follow Up Care 12/10/2023 12:42:24 With:Eldon SHIN MD, FAM Address: When: only if needed [facility] [place] 12-11-2023 Note Patient Education Neurology Migraine Headache A migraine headache is an intense, throbbing pain on one side or both sides of the head. Migraine headaches may also cause other symptoms, such as nausea, vomiting, and sensitivity to light and noise. A migraine headache can last from 4 hours to 3 days. Talk with your doctor about what things may bring on (trigger) your migraine headaches. What are the causes? The exact cause of this condition is not known. However, a migraine may be caused when nerves in the brain become irritated and release chemicals that cause inflammation of blood vessels. This inflammation causes pain. This condition may be triggered or caused by: ? Drinking alcohol. ? Smoking. ? Taking medicines, such as: ? Medicine used to treat chest pain (nitroglycerin). ? control pills. ? Estrogen. ? Certain blood pressure medicines. ? Eating or drinking products that contain nitrates, glutamate, aspartame, or tyramine. Aged cheeses, chocolate, or caffeine may also be triggers. ? Doing physical activity. Other things that may trigger a migraine headache include: ? Menstruation. ? . ? Hunger. ? Stress. ? Lack of sleep or too much sleep. ? Weather changes. ? Fatigue. What increases the risk? The following factors may make you more likely to experience migraine headaches: ? Being a certain age. This condition is more common in people who are 25?55 years old. ? Being female. ? Having a family history of migraine headaches. ? Being . ? Having a mental health condition, such as depression or anxiety. ? Being obese. What are the signs or symptoms? The main symptom of this condition is pulsating or throbbing pain. This pain may: ? Happen in any area of the head, such as on one side or both sides. ? Interfere with daily activities. ? Get worse with physical activity. ? Get worse with exposure to bright lights or loud noises. Other symptoms may include: ? Nausea. ? Vomiting. ? Dizziness. ? General sensitivity to bright lights, loud noises, or smells. Before you get a migraine headache, you may get warning signs (an aura). An aura may include: ? Seeing flashing lights or having blind spots. ? Seeing bright spots, halos, or zigzag lines. ? Having tunnel vision or blurred vision. ? Having numbness or a tingling feeling. ? Having trouble talking. ? Having muscle weakness. Some people have symptoms after a migraine headache (postdromal phase), such as: ? Feeling tired. ? Difficulty concentrating. How is this diagnosed? A migraine headache can be diagnosed based on: ? Your symptoms. ? A physical exam. ? Tests, such as: ? CT scan or an MRI of the head. These imaging tests can help rule out other causes of headaches. ? Taking fluid from the spine (lumbar puncture) and analyzing it (cerebrospinal fluid analysis, or CSF analysis). How is this treated? This condition may be treated with medicines that: ? Relieve pain. ? Relieve nausea. ? Prevent migraine headaches. Treatment for this condition may also include: ? Acupuncture. ? Lifestyle changes like avoiding foods that trigger migraine headaches. ? Biofeedback. ? Cognitive behavioral therapy. Follow these instructions at home: Medicines ? Take fyyf-bmm-wsofwib and prescription medicines only as told by your health care provider. ? Ask your health care provider if the medicine prescribed to you: ? Requires you to avoid driving or using heavy machinery. ? Can cause constipation. You may need to take these actions to prevent or treat constipation: ? Drink enough fluid to keep your urine pale yellow. ? Take aawu-lpv-kysuphi or prescription medicines. ? Eat foods that are high in fiber, such as beans, whole grains, and fresh fruits and vegetables. ? Limit foods that are high in fat and processed sugars, such as fried or sweet foods. Lifestyle ? Do not drink alcohol. ? Do not use any products that contain nicotine or tobacco, such as cigarettes, e-cigarettes, and chewing tobacco. If you need help quitting, ask your health care provider. ? Get at least 8 hours of sleep every night. ? Find ways to manage stress, such as meditation, deep breathing, or yoga. General instructions ? Keep a journal to find out what may trigger your migraine headaches. For example, write down: ? What you eat and drink. ? How much sleep you get. ? Any change to your diet or medicines. ? If you have a migraine headache: ? Avoid things that make your symptoms worse, such as bright lights. ? It may help to lie down in a dark, quiet room. ? Do not drive or use heavy machinery. ? Ask your health care provider what activities are safe for you while you are experiencing symptoms. ? Keep all follow-up visits as told by your health care provider. This is important. Contact a health care provider if: ? You develop symptoms th (more content not included)... [facility] 12-10-2023 Evaluation + Plan note Extrac perri from: Title:ED Note Author:Dean Gordon PA-C te:12/10/23 Headache (R51.9: Headache, u nspecified) Vertigo (R42: Dizziness and giddiness) Orders: diphenhydrAMINE, 25 mg = 0.5 mL, Injection, IV Push, Once, Stop date 12/10/23 8:19:00 EDT, STAT, Start date 12/10/23 8:19:00 EDT, 12/10/23 8:19:00 EDT ketorolac, 30 mg = 1 mL, Injection, IV Push, Once, Stop date 12/10/23 9:53:00 EDT, STAT, Start date 12/10/23 9:53:00 EDT, 12/10/23 9:53:00 EDT meclizine, 25 mg = 2 tab(s), Tab, Oral, Once, Stop date 12/10/23 9:53:00 EDT, STAT, Start date 12/10/23 9:53:00 EDT, 12/10/23 9:53:00 EDT meclizine, 25 mg = 1 tab(s), Oral, TID, PRN for dizziness, X 3 day(s), # 15 tab(s), Refills(s) 0, Pharmacy: [facility], 165.1, cm, 12/10/23 8:43:00 EDT, Height/Length Dosing, 85.3, kg, 12/10/23 8:43:00 EDT, Weight Dosing ondansetron, 4 mg = 1 tab(s), Oral, TID, # 15 tab(s), Refills(s) 0, Pharmacy: [facility], 165.1, cm, 12/10/23 8:43:00 EDT, Height/Length Dosing, 85.3, kg, 12/10/23 8:43:00 EDT, Weight Dosing Future Appointments Appointment Date:12/13/2023 10:20:00 AM Scheduled Provider:Eldon SHIN MD Location:[facility] [place] Appointment Type:FM Open Appointment Date:12/17/2023 07:30:00 AM Scheduled Provider: [facility]:XR Abdomen (FT) Appointment Date:12/20/2023 09:45:00 AM Scheduled Provider:Francisco HELTON MD Location:[facility] Appointment Type:URO Office Visit Appointment Date:02/21/2024 04:00:00 PM Scheduled Provider:Eldon SHIN MD Location:[facility] [place] Appointment Type:FM Open Diagnostic Tests Pending * Urine Culture 12/10/23 Future Scheduled Tests Radiology* XR Abdomen 1 View 12/17/23 [facility]07-02-2024 Hospital Discharge instructions Patient Education 12/10/2023 11:56:08 Vertigo Vertigo Vertigo is the feeling that you or your surroundings are moving when they are not. This feeling cancome and go at any time. Vertigo often goes away on its own. Vertigo can be dangerous if it occurs while you are doing something that could endanger yourself or others, such as driving or operating machinery. Your health care provider will do tests to try to determine the cause of your vertigo. Tests will also help your health care provider decide how best to treat your condition. Follow these instructions at home: Eating and drinking Dehydration can make vertigo worse. Drink enough fluid to keep your urine pale yellow. Do not drink alcohol. Activity Return to your normal activities as told by your health care provider. Ask your health care provider what activities are safe for you. In the morning, first sit up on the side of the bed. When you feel okay, stand slowly while you hold onto something until you know that your balance is fine. Move slowly. Avoid sudden body or head movements or certain positions, as told by your health care provider. If you have trouble walking or keeping your balance, try using a cane for stability. If you feel dizzy or unstable, sit down right away. Avoid doing any tasks that would cause danger to you or others if vertigo occurs. Avoid bending down if you feel dizzy. Place items in your home so that they are easy for you to reach without bending or leaning over. Do not drive or use machinery if you feel dizzy. General instructions Take dbfb-vwh-ehaubcu and prescription medicines only as told by your health care provider. Keep all follow-up visits. This is important. Contact a health care provider if: Your medicines do not relieve your vertigo or they make it worse. Your condition gets worse or you develop new symptoms. You have a fever. You develop nausea or vomiting, or if nausea gets worse. Your family or friends notice any behavioral changes. You have numbness or a prickling and tingling sensation in part of your body. Get help right away if you: Are always dizzy or you faint. Develop severe headaches. Develop a stiff neck. Develop sensitivity to light. Have difficulty moving or speaking. Have weakness in your hands, arms, or legs. Have changes in your hearing or vision. These symptoms may represent a serious problem that is an emergency. Do not wait to see if the symptoms will go away. Get medical help right away. Call your local emergency services (911 in the [place] Do not drive yourself to the hospital. Summary Vertigo is the feeling that you or your surroundings are moving when they are not. Your health care provider will do tests to try to determine the cause of your vertigo. Follow instructions for home care. You may be told to avoid certain tasks, positions, or movements. Contact a health care provider if your medicines do not relieve your symptoms, or if you have a fever, nausea, vomiting, or changes in behavior. Get help right away if you have severe headaches or difficulty speaking, or you develop hearing or vision problems. This information is not intended to replace advice given to you by your health care provider. Make sure you discuss any questions you have with your health care provider. Document Revised: 04/26/2021 Document Reviewed: 04/26/2021 [employer] Patient Education 2022 [place]. Follow Up Care 12/10/2023 08:11:36 With:Eldon SHIN Address: [address] [place], [place] [id number] Business (1) When:12/13/2023 11:45:03 [facility]07-02-2024 NoteED Patient Education Note Neurology Vertigo Vertigo is the feeling that you or your surroundings are moving when they are not. This feeling cancome and go at any time. Vertigo often goes away on its own. Vertigo can be dangerous if it occurs while you are doing something that could endanger yourself or others, such as driving or operating machinery. Your health care provider will do tests to try to determine the cause of your vertigo. Tests will also help your health care provider decide how best to treat your condition. Follow these instructions at home: Eating and drinking ? Dehydration can make vertigo worse. Drink enough fluid to keep your urine pale yellow. ? Do not drink alcohol. Activity ? Return to your normal activities as told by your health care provider. Ask your health care provider what activities are safe for you. ? In the morning, first sit up on the side of the bed. When you feel okay, stand slowly while you hold onto something until you know that your balance is fine. ? Move slowly. Avoid sudden body or head movements or certain positions, as told by your health care provider. ? If you have trouble walking or keeping your balance, try using a cane for stability. If you feel dizzy or unstable, sit down right away. ? Avoid doing any tasks that would cause danger to you or others if vertigo occurs. ? Avoid bending down if you feel dizzy. Place items in your home so that they are easy for you to reach without bending or leaning over. ? Do not drive or use machinery if you feel dizzy. General instructions ? Take kojb-ubw-oheqrtk and prescription medicines only as told by your health care provider. ? Keep all follow-up visits. This is important. Contact a health care provider if: ? Your medicines do not relieve your vertigo or they make it worse. ? Your condition gets worse or you develop new symptoms. ? You have a fever. ? You develop nausea or vomiting, or if nausea gets worse. ? Your family or friends notice any behavioral changes. ? You have numbness or a prickling and tingling sensation in part of your body. Get help right away if you: ? Are always dizzy or you faint. ? Develop severe headaches. ? Develop a stiff neck. ? Develop sensitivity to light. ? Have difficulty moving or speaking. ? Have weakness in your hands, arms, or legs. ? Have changes in your hearing or vision. These symptoms may represent a serious problem that is an emergency. Do not wait to see if the symptoms will go away. Get medical help right away. Call your local emergency services (911 in the [place] Do not drive yourself to the hospital. Summary ? Vertigo is the feeling that you or your surroundings are moving when they are not. ? Your health care provider will do tests to try to determine the cause of your vertigo. ? Follow instructions for home care. You may be told to avoid certain tasks, positions, or movements. ? Contact a health care provider if your medicines do not relieve your symptoms, or if you have a fever, nausea, vomiting, or changes in behavior. ? Get help right away if you have severe headaches or difficulty speaking, or you develop hearing or vision problems. This information is not intended to replace advice given to you by your health care provider. Make sure you discuss any questions you have with your health care provider. Document Revised: 04/26/2021 Document Reviewed: 04/26/2021 [employer] Patient Education ? 2022 [place] [facility] 12-10-2023 NoteProgress Note-Nurse Patient ambualted with Venkata Lemon POCT and patient verbalized symptoms improved at this time. JUDY Moran [facility]06-20-2024 Hospital Discharge instructions Patient Education 11/28/2023 19:55:07 Major Depressive Disorder, Adult Major Depressive Disorder, Adult Major depressive disorder (MDD) is a mental health condition. It may also be called clinical depression or unipolar depression. MDD causes symptoms of sadness, hopelessness, and loss of interest in things. These symptoms last most of the day, almost every day, for 2 weeks. MDD can also cause physical symptoms. It can interfere with relationships and with everyday activities, such as work, school,and activities that are usually pleasant. MDD may be mild, moderate, or severe. It may be single-episode MDD, which happens once, or recurrent MDD, which may occur multiple times. What are the causes? The exact cause of this condition is not known. MDD is most likely caused by a combination of things, which may include: Your personality traits. Daniels or conditioned behaviors or thoughts or feelings that reinforce negativity. Any alcohol or substance misuse. Long-term (chronic) physical or mental health illness. Going through a traumatic experience or major life changes. What increases the risk? The following factors may make someone more likely to develop MDD: A family history of depression. Being a woman. Troubled family relationships. Abnormally low levels of certain brain chemicals. Traumatic or painful events in childhood, especially abuse or loss of a parent. A lot of stress from life experiences, such as poor living conditions or discrimination. Chronic physical illness or other mental health disorders. What are the signs or symptoms? The main symptoms of MDD usually include: Constant depressed or irritable mood. A loss of interest in things and activities. Other symptoms include: Sleeping or eating too much or too little. Unexplained weight gain or weight loss. Tiredness or low energy. Being agitated, restless, or weak. Feeling hopeless, worthless, or guilty. Trouble thinking clearly or making decisions. Thoughts of suicide or thoughts of harming others. Isolating oneself or avoiding other people or activities. Trouble completing tasks, work, or any normal obligations. Severe symptoms of this condition may include: Psychotic depression.This may include false beliefs, or delusions. It may also include seeing, hearing, tasting, smelling, or feeling things that are not real (hallucinations). Chronic depression or persistent depressive disorder. This is low-level depression that lasts for at least 2 years. Melancholic depression, or feeling extremely sad and hopeless. Catatonic depression, which includes trouble speaking and trouble moving. How is this diagnosed? This condition may be diagnosed based on: Your symptoms. Your medical and mental health history. You may be asked questions about your lifestyle, including any drug and alcohol use. A physical exam. Blood tests to rule out other conditions. MDD is confirmed if you have the following symptoms most of the day, nearly every day, in a 2-week period: Either a depressed mood or loss of interest. At least four other MDD symptoms. How is this treated? This condition is usually treated by mental health professionals, such as psychologists, psychiatrists, and clinical social workers. You may need more than one type of treatment. Treatment may include: Psychotherapy, also called talk therapy or counseling. Types of psychotherapy include: ?Cognitive behavioral therapy (CBT). This teaches you to recognize unhealthy feelings, thoughts, and behaviors, and replace them with positive thoughts and actions. ?Interpersonal therapy (IPT). This helps you to improve the way you communicate with others or relate to them. ?Family therapy. This treatment includes members of your family. Medicines to treat anxiety and depression. These medicines help to balance the brain chemicals thataffect your emotions. Lifestyle changes. You may be asked to: ?Limit alcohol use and avoid drug use. ?Get regular exercise. ?Get plenty of sleep. ?Make healthy eating choices. ?Spend more time outdoors. Brain stimulation. This may be done if symptoms are very severe and other treatments have not worked. Examples of this treatment are electroconvulsive therapy and transcranial magnetic stimulation. Follow these instructions at home: Activity Exercise regularly and spend time outdoors. Find activities that you enjoy doing, and make time to do them. Find healthy ways to manage stress, such as: ?Meditation or deep breathing. ?Spending time in nature. ?Journaling. Return to your normal activities as told by your health care provider. Ask your health care provider what activities are safe for you. Alcohol and drug use If you drink alcohol: ?Limit how much you use to: ?0 1 drink a day for women who are not . ?0 2 drinks a day for men. ?Be aware of how much alcohol is in your drink. In the [place] one drink equals one 12 oz bottle of beer (355 mL), one 5 oz glass of wine (148 mL), or one 1 oz glass of hard liquor (44 mL). ?Discuss your alcohol use with your health care provider. Alcohol can affect any antidepressant medicines you are taking. Discuss any drug use with your health care provider. General instructions Take dgbp-dle-hidfixg and prescription medicines only as told by your health care provider. Eat a healthy diet and get plenty of sleep. Consider joining a support group. Your health care provider may be able to recommend one. Keep all follow-up visits as told by your health care provider. This is important. Where to find more information National [place] on Mental Illness: www.wendy.org [place] National [place] of Mental Health: www.nimh.nih.gov Contact a health care provider if: Your symptoms get worse. You develop new symptoms. Get help right away if: You self-harm. You have serious thoughts about hurting yourself or others. You hallucinate. If you ever feel like you may hurt yourself or others, or have thoughts about taking your own life,get help right away. Go to your nearest emergency department or: Call your local emergency services (903 in the [place] Call a suicide crisis helpline, such as the National Suicide Prevention Lifeline at or 013 in the [place] This is open 24 hours a day in the [place] Text the Crisis Text Line at 160705 (in the [place] Summary Major depressive disorder (MDD) is a mental health condition. MDD causes symptoms of sadness, hopelessness, and loss of interest in things. These symptoms last most of the day, almost every day, for 2 weeks. The symptoms of MDD can interfere with relationships and with everyday activities. Treatments and support are available for people who develop MDD. You may need more than one type oftreatment. Get help right away if you have serious thoughts about hurting yourself or others. This information is not intended to replace advice given to you by your health care provider. Make sure you discuss any questions you have with your health care provider. Document Revised: 12/20/2021 Document Reviewed: 05/07/2020 [employer] Patient Education 2022 [place]. Follow Up Care 08/30/2023 16:51:21 With:Eldon SHIN MD, FAM Address: When:Within 3 Month(s) [facility] [place] 03-20-2024 Hospital Discharge instructions Patient Education 08/28/2023 18:13:02 Health Maintenance, Female Health Maintenance, Female Adopting a healthy lifestyle and getting preventive care are important in promoting health and wellness. Ask your health care provider about: The right schedule for you to have regular tests and exams. Things you can do on your own to prevent diseases and keep yourself healthy. What should I know about diet, weight, and exercise? Eat a healthy diet Eat a diet that includes plenty of vegetables, fruits, low-fat dairy products, and lean protein. Do not eat a lot of foods that are high in solid fats, added sugars, or sodium. Maintain a healthy weight Body mass index (BMI) is used to identify weight problems. It estimates body fat based on height and weight. Your health care provider can help determine your BMI and help you achieve or maintain a healthy weight. Get regular exercise Get regular exercise. This is one of the most important things you can do for your health. Most adults should: Exercise for at least 150 minutes each week. The exercise should increase your heart rate and make you sweat (moderate-intensity exercise). Do strengthening exercises at least twice a week. This is in addition to the moderate-intensity exercise. Spend less time sitting. Even light physical activity can be beneficial. Watch cholesterol and blood lipids Have your blood tested for lipids and cholesterol at 20 years of age, then have this test every 5 years. Have your cholesterol levels checked more often if: Your lipid or cholesterol levels are high. You are older than 40 years of age. You are at high risk for heart disease. What should I know about cancer screening? Depending on your health history and family history, you may need to have cancer screening at various ages. This may include screening for: Breast cancer. Cervical cancer. Colorectal cancer. Skin cancer. Lung cancer. What should I know about heart disease, diabetes, and high blood pressure? Blood pressure and heart disease High blood pressure causes heart disease and increases the risk of stroke. This is more likely to develop in people who have high blood pressure readings or are overweight. Have your blood pressure checked: ?Every 3 5 years if you are 18 39 years of age. ?Every year if you are 40 years old or older. Diabetes Have regular diabetes screenings. This checks your fasting blood sugar level. Have the screening done: Once every three years after age 40 if you are at a normal weight and have a low risk for diabetes. More often and at a younger age if you are overweight or have a high risk for diabetes. What should I know about preventing infection? Hepatitis B If you have a higher risk for hepatitis B, you should be screened for this virus. Talk with your health care provider to find out if you are at risk for hepatitis B infection. Hepatitis C Testing is recommended for: Everyone born from 1945 through 1965. Anyone with known risk factors for hepatitis C. Sexually transmitted infections (STIs) Get screened for STIs, including gonorrhea and chlamydia, if: ?You are sexually active and are younger than 24 years of age. ?You are older than 24 years of age and your health care provider tells you that you are at risk for this type of infection. ?Your sexual activity has changed since you were last screened, and you are at increased risk for chlamydia or gonorrhea. Ask your health care provider if you are at risk. Ask your health care provider about whether you are at high risk for HIV. Your health care providermay recommend a prescription medicine to help prevent HIV infection. If you choose to take medicineto prevent HIV, you should first get tested for HIV. You should then be tested every 3 months for as long as you are taking the medicine. If you are about to stop having your period (premenopausal) and you may become , seek counseling before you get . Take 400 to 800 micrograms (mcg) of folic acid every day if you become . Ask for control (contraception) if you want to prevent . Osteoporosis and menopause Osteoporosis is a disease in which the bones lose minerals and strength with aging. This can resultin bone fractures. If you are 65 years old or older, or if you are at risk for osteoporosis and fractures, ask your health care provider if you should: Be screened for bone loss. Take a calcium or vitamin D supplement to lower your risk of fractures. Be given hormone replacement therapy (HRT) to treat symptoms of menopause. Follow these instructions at home: Alcohol use Do not drink alcohol if: ?Your health care provider tells you not to drink. ?You are , may be , or are planning to become . If you drink alcohol: ?Limit how much you have to: ?0 1 drink a day. ?Know how much alcohol is in your drink. In the [place] one drink equals one 12 oz bottle of beer (355 mL), one 5 oz glass of wine (148 mL), or one 1 oz glass of hard liquor (44 mL). Lifestyle Do not use any products that contain nicotine or tobacco. These products include cigarettes, chewing tobacco, and vaping devices, such as e-cigarettes. If you need help quitting, ask your health careprovider. Do not use street drugs. Do not share needles. Ask your health care provider for help if you need support or information about quitting drugs. General instructions Schedule regular health, dental, and eye exams. Stay current with your vaccines. Tell your health care provider if: ?You often feel depressed. ?You have ever been abused or do not feel safe at home. Summary Adopting a healthy lifestyle and getting preventive care are important in promoting health and wellness. Follow your health care provider's instructions about healthy diet, exercising, and getting tested or screened for diseases. Follow your health care provider's instructions on monitoring your cholesterol and blood pressure. This information is not intended to replace advice given to you by your health care provider. Make sure you discuss any questions you have with your health care provider. Document Revised: 10/16/2021 Document Reviewed: 10/16/2021 [employer] Patient Education 2022 [place]. Follow Up Care 03/01/2023 16:20:00 With:Eldon SHIN MD, FAM Address: When:Within 3 Month(s) [facility] [place] 01-24-2024 NoteHNO ID: [id number] Author: CELSO ARAUZ APRN.[employer]FINING [employer]PERVISOR Service: ? Author Type: Nurse Practitioner Type: Progress Notes Filed: 07/03/2023 13:08 Note Text: BMI Obesity Medicine FollowUp Note Distance Health Visit July 03, 2023 I have communicated my name and active licensure. The patient's identity and physical location were verified at the time of this visit. Either the patient or their legal sales representative publications has been informed of the risks and benefits of -- and alternatives to -- treatment through a remote evaluation and consents to proceed with the evaluation remotely. Patient Summary: Viviane Teresa is 42 year old Female who presents virtually for follow-up evaluation of her obesity and related complications to the [facility] [place]. In our previous visits we have outlined an individualized lifestyle intervention including a personalized nutrition recommendations and physical activity optimization. Goal weight: 150 lb Highest weight Index Surgery Date of Surgery: 08/05/2018 Surgeon: Heath Echols MD Surgical Procedure: LAPAROSCOPIC GASTRIC RESTRICTIVE SURG W/ BYPASS AND PARKER-EN-Y 150CM OR LESS Pre-surgical weight: 139.7 kg (308 lb) Override Index Surgery Information? No Gonzalo: 190 lb Highest weight: 364 lb JOSE L: Impression: Viviane Teresa is a 42 year old overweight female and the above obesity related complications. There is no height or weight on file to calculate BMI. Was taking Mounjaro, coupon ended, now cost prohibitive. Agreeable to restarting phentermine and beginning Metformin 500 mg with dinner daily x 1 week. If tolerating will increase to 2 tablets with dinner daily. We discussed common side effects of this medication including nausea, changes in bowel habits, abdominal discomfort, and flatulence. Discussed taking it with food and complication of lactic acidosis and signs/symptoms and medication handout given. Further instructed that if she experiences malaise, muscle aches, difficulty breathing, or severe abdominal pain to seek immediate medical attention. Plan: -- continue current lifestyle -- hold amitriptyline (takes for sleep), discussed weight promoting. -- sleep medicine consult placed - hx of RANDEE, no longer on CPAP, never retested w/ weight loss. 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 Take 1 tablet at dinner for 2 weeks and then increase to 2 tablets. -- add 1/2 tab of phentermine -- annual labs in the spring -- return to clinic/virtually in 3 months per [place] law Weight Graph; (please see graph scanned in chart or EPIC synopsis below) Interval History: She specifies the following items as new or significant updates since the last appointment: Returns after 3 months. Weight is stable since last visit. Was gaining weight previously since being off of the Mounjaro. Can still notice a difference since being off of the Mounjaro, but she can tell the phentermine and metformin are helping. Has stopped abilify since last visit. Increased stress recently. 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 Obesity Medications: Mounjaro. Start Date: 02/07/22 Weight: 190lbs Effects Reduced hunger, Reduction of appetite, and Reduction of cravings Reports appetite is controlled. SE: constipation initially. Coupon ended, cost prohibitive Zepbound - excluded from the patient's benefi Other AOMs Phentermine. Topiramate - hx of kidney stones Metformin 1000 mg Side effects: no side effects Benefit: Reduction of cravings Started: 2022 Starting weight: 189 lb Weight promoting medications: Abilify - no longer on Diet: -Protein shake daily -~80-85g/day - >64 oz fluid daily DAILY SUPPLEMENTS: Yes - Celebrate bariatric vitamins Calcium: Calcium Citrate w/ vitamin D (1200 - 1500mg) 500 mg TID Multivitamin AND Minerals: 1 per day Iron Supplement: included in multi-vitamin Vitamin B12: included in multivitamin Vitamin D3: included in multi-vitamin Other: N/A Exercise: -physical trainer 1x/week, weight lifting -Kickboxing 1x/week -Has home gym ?Sleep: No change in sleep, reports sleeping well. ??Stress: Increased, work stress, recent weight gain. Review of Systems: The physical systems reviewed reveal no pathological symptoms that are pertinent to this visit History reviewed in Epic ALLERGIES No Known Allergies Current Outpatient Medications Medication Sig Phentermine HCl 37.5 mg tablet Take 1 tablet by mouth once daily for 90 days. metFORMIN (GLUCOPHAGE) 500 mg tablet Take 2 tablets by mouth two times a day with meals. aripiprazole (ABILIFY ORAL) Take 5 mg by mouth daily at bedtime. hydroCHLOROthiazide (HYDRODIURIL, ESIDRIX) 12.5 mg tablet Take 12.5 mg by mouth once daily. buPROPion XL (WELLBUTRIN XL) 300 mg 24 hr tablet Take 300 mg by mouth once daily. polyethylene glycol 3350 (JEANMARIE (more content not included)...[facility]10-23-2023 NoteHNO ID: [id number] Author: Celso Arauz APRN.GREASE REFINING SUPERVISOR Service: ? Author Type: Nurse Practitioner Type: Progress Notes Filed: 04/01/2023 7:40 AM Note Text: BMI Obesity Medicine FollowUp Note Distance Health Visit April 01, 2023 I have communicated my name and active licensure. The patient's identity and physical location were verified at the time of this visit. Either the patient or their legal sales representative publications has been informed of the risks and benefits of -- and alternatives to -- treatment through a remote evaluation and consents to proceed with the evaluation remotely. Patient Summary: Viviane Teresa is 42 year old Female who presents virtually for follow-up evaluation of her obesity and related complications to the [facility] [place]. In our previous visits we have outlined an individualized lifestyle intervention including a personalized nutrition recommendations and physical activity optimization. Goal weight: 150 lb Index Surgery Date of Surgery: 08/05/2018 Surgeon: Heath Echols MD Surgical Procedure: LAPAROSCOPIC GASTRIC RESTRICTIVE SURG W/ BYPASS AND PARKER-EN-Y 150CM OR LESS Pre-surgical weight: 139.7 kg (308 lb) Override Index Surgery Information? No Gonzalo: 190 lb Highest weight: 364 lb JOSE L: Impression: Viviane Teresa is a 42 year old overweight female and the above obesity related complications. There is no height or weight on file to calculate BMI. Currently taking Mounjaro., responding well. Lifestyle improved. Motivated. Patient doing very well on Mounjaro 15 mg dosing currently. Plan: -- continue current lifestyle -- Continue Mounjaro. -- return to clinic/virtually in 3 months Weight Graph; (please see graph scanned in chart or EPIC synopsis below) Interval History: She specifies the following items as new or significant updates since the last appointment: Returns after 5 months. Hx of Calcium oxalate kidney stones. Just had follow up w/ urology, current stones are the same size. Trying to stay positive, but difficult w/ recent weight gain. Obesity Medications: Mounjaro. Start Date: 02/07/22 Weight: 190lbs Effects Reduced hunger, Reduction of appetite, and Reduction of cravings Reports appetite is controlled. SE: constipation initially. Other AOMs Phentermine. Topiramate - hx of kidney stones Weight promoting medications: Abilify Diet: -Protein shake daily -~80-85g/day - >64 oz fluid daily DAILY SUPPLEMENTS: Yes - Celebrate bariatric vitamins Calcium: Calcium Citrate w/ vitamin D (1200 - 1500mg) 500 mg TID Multivitamin AND Minerals: 1 per day Iron Supplement: included in multi-vitamin Vitamin B12: included in multivitamin Vitamin D3: included in multi-vitamin Other: N/A Exercise: -physical trainer 1x/week, weight lifting -Kickboxing 1x/week -Has home gym ?Sleep: No change in sleep, reports sleeping well. ??Stress: Increased, work stress, recent weight gain. Review of Systems: The physical systems reviewed reveal no pathological symptoms that are pertinent to this visit History reviewed in Epic ALLERGIES No Known Allergies Current Outpatient Medications Medication Sig tirzepatide (MOUNJARO) 12.5 mg/0.5 mL pen injector Inject 12.5 mg subcutaneously one time a week. tirzepatide (MOUNJARO) 15 mg/0.5 mL pen injector Inject 15 mg subcutaneously one time a week. aripiprazole (ABILIFY ORAL) Take 5 mg by mouth daily at bedtime. hydroCHLOROthiazide (HYDRODIURIL, ESIDRIX) 12.5 mg tablet Take 12.5 mg by mouth once daily. buPROPion XL (WELLBUTRIN XL) 300 mg 24 hr tablet Take 300 mg by mouth once daily. polyethylene glycol 3350 (MIRALAX) 17 gram/dose powder Take by mouth once daily. Calcium Citrate 250 mg calcium tab Take 2 tablets by mouth three times daily. 2 tablets by mouth three times daily vitamin D3-vitamin K2, MK4, 1,000-100 unit-mcg tab Take 1 capsule by mouth three times daily. Lactobac no.41/Bifidobact no.7 (PROBIOTIC-10 ORAL) cetirizine (ZYRTEC) 10 mg tablet Take 10 mg by mouth. multivitamin (MULTIPLE VITAMINS ORAL) Take by mouth. No current facility-administered medications for this visit. PAST MEDICAL HISTORY Diagnosis Date Anxiety with depression 04/14/2021 Hypertension Kidney stones, calcium oxalate Obstructive sleep apnea S/P gastric bypass PAST SURGICAL HISTORY Procedure Laterality Date SECTION HX 2008, 2010 COLONOSCOPY EGD 09/20/2020 GASTRIC BYPASS HX 07/2018 HYSTERECTOMY 2013 KNEE SURGERY HX Right x 2 - last one ~1999 KNEE SURGERY HX Left high school NOSE SURGERY HX x3 - in high school WRIST SURGERY HX Right High school Social Connections: Not on file Family History Problem Relation Age of Onset Heart Mother heart valve Hypertension Mother No Known Problems Father Physical Exam: BP 118/70 Pulse 72 Ht 167.6 cm (5' 6 ) Wt 83.9 kg (185 lb) BMI 29.86 kg/m? 83.9 kg (185 l (more content not included)...[facility]09-21-2023 Hospital Discharge instructions Patient Education 02/28/2023 21:54:58 Insomnia Insomnia Insomnia is a sleep disorder that makes it difficult to fall asleep or stay asleep. Insomnia can cause fatigue, low energy, difficulty concentrating, mood swings, and poor performance at work or school. There are three different ways to classify insomnia: Difficulty falling asleep. Difficulty staying asleep. Waking up too early in the morning. Any type of insomnia can be long-term (chronic) or short-term (acute). Both are common. Short-term insomnia usually lasts for 3 months or less. Chronic insomnia occurs at least three times a week forlonger than 3 months. What are the causes? Insomnia may be caused by another condition, situation, or substance, such as: Having certain mental health conditions, such as anxiety and depression. Using caffeine, alcohol, tobacco, or drugs. Having gastrointestinal conditions, such as gastroesophageal reflux disease (GERD). Having certain medical conditions. These include: ?Asthma. ?Alzheimer's disease. ?Stroke. ?Chronic pain. ?An overactive thyroid gland (hyperthyroidism). Other sleep disorders, such as restless legs syndrome and sleep apnea. Menopause. Sometimes, the cause of insomnia may not be known. What increases the risk? Risk factors for insomnia include: Gender. Females are affected more often than males. Age. Insomnia is more common as people get older. Stress and certain medical and mental health conditions. Lack of exercise. Having an irregular work schedule. This may include working night shifts and traveling between different time zones. What are the signs or symptoms? If you have insomnia, the main symptom is having trouble falling asleep or having trouble staying asleep. This may lead to other symptoms, such as: Feeling tired or having low energy. Feeling nervous about going to sleep. Not feeling rested in the morning. Having trouble concentrating. Feeling irritable, anxious, or depressed. How is this diagnosed? This condition may be diagnosed based on: Your symptoms and medical history. Your health care provider may ask about: ?Your sleep habits. ?Any medical conditions you have. ?Your mental health. A physical exam. How is this treated? Treatment for insomnia depends on the cause. Treatment may focus on treating an underlying condition that is causing the insomnia. Treatment may also include: Medicines to help you sleep. Counseling or therapy. Lifestyle adjustments to help you sleep better. Follow these instructions at home: Eating and drinking Limit or avoid alcohol, caffeinated beverages, and products that contain nicotine and tobacco, especially close to bedtime. These can disrupt your sleep. Do not eat a large meal or eat spicy foods right before bedtime. This can lead to digestive discomfort that can make it hard for you to sleep. Sleep habits Keep a sleep diary to help you and your health care provider figure out what could be causing your insomnia. Write down: ?When you sleep. ?When you wake up during the night. ?How well you sleep and how rested you feel the next day. ?Any side effects of medicines you are taking. ?What you eat and drink. Make your bedroom a dark, comfortable place where it is easy to fall asleep. ?Put up shades or blackout curtains to block light from outside. ?Use a white noise machine to block noise. ?Keep the temperature cool. Limit screen use before bedtime. This includes: ?Not watching TV. ?Not using your smartphone, tablet, or computer. Stick to a routine that includes going to bed and waking up at the same times every day and night. This can help you fall asleep faster. Consider making a quiet activity, such as reading, part of your nighttime routine. Try to avoid taking naps during the day so that you sleep better at night. Get out of bed if you are still awake after 15 minutes of trying to sleep. Keep the lights down, but try reading or doing a quiet activity. When you feel sleepy, go back to bed. General instructions Take ddyc-ytl-kyblnmb and prescription medicines only as told by your health care provider. Exercise regularly as told by your health care provider. However, avoid exercising in the hours right before bedtime. Use relaxation techniques to manage stress. Ask your health care provider to suggest some techniques that may work well for you. These may include: ?Breathing exercises. ?Routines to release muscle tension. ?Visualizing peaceful scenes. Make sure that you drive carefully. Do not drive if you feel very sleepy. Keep all follow-up visits. This is important. Contact a health care provider if: You are tired throughout the day. You have trouble in your daily routine due to sleepiness. You continue to have sleep problems, or your sleep problems get worse. Get help right away if: You have thoughts about hurting yourself or someone else. Get help right away if you feel like you may hurt yourself or others, or have thoughts about takingyour own life. Go to your nearest emergency room or: Call 911. Call the National Suicide Prevention Lifeline at or 492. This is open 24 hours a day. Text the Crisis Text Line at 091331. Summary Insomnia is a sleep disorder that makes it difficult to fall asleep or stay asleep. Insomnia can be long-term (chronic) or short-term (acute). Treatment for insomnia depends on the cause. Treatment may focus on treating an underlying condition that is causing the insomnia. Keep a sleep diary to help you and your health care provider figure out what could be causing your insomnia. This information is not intended to replace advice given to you by your health care provider. Make sure you discuss any questions you have with your health care provider. Document Revised: 05/07/2022 Document Reviewed: 05/07/2022 [place] Patient Education 2022 [place]. Follow Up Care 08/16/2022 08:31:51 With:Eldon SHIN MD, FAM Address: [address] [place] [id number]- When[facility] Hospital Discharge instructions Patient Education 01/07/2023 09:18:39 Dietary Guidelines to Help Prevent Kidney Stones Dietary Guidelines to Help Prevent Kidney Stones Kidney stones are deposits of minerals and salts that form inside your kidneys. Your risk of developing kidney stones may be greater depending on your diet, your lifestyle, the medicines you take, and whether you have certain medical conditions. Most people can lower their chances of developing kidney stones by following the instructions below. Your dietitian may give you more specific instructions depending on your overall health and the type of kidney stones you tend to develop. What are tips for following this plan? Reading food labels Choose foods with no salt added or low-salt labels. Limit your salt (sodium) intake to less than 1,500 mg a day. Choose foods with calcium for each meal and snack. Try to eat about 300 mg of calcium at each meal.Foods that contain 200 500 mg of calcium a serving include: ?8 oz (237 mL) of milk, ahftswl-xpeujyaoiqvg-jknoi milk, and calcium- fortifiedfruit juice. Calcium-fortified means that calcium has been added to these drinks. ?8 oz (237 mL) of kefir, yogurt, and soy yogurt. ?4 oz (114 g) of tofu. ?1 oz (28 g) of cheese. ?1 cup (150 g) of dried figs. ?1 cup (91 g) of cooked broccoli. ?One 3 oz (85 g) can of sardines or mackerel. Most people need 1,000 1,500 mg of calcium a day. Talk to your dietitian about how much calcium is recommended for you. Shopping Buy plenty of fresh fruits and vegetables. Most people do not need to avoid fruits and vegetables, even if these foods contain nutrients that may contribute to kidney stones. When shopping for convenience foods, choose: ?Whole pieces of fruit. ?Pre-made salads with dressing on the side. ?Low-fat fruit and yogurt smoothies. Avoid buying frozen meals or prepared deli foods. These can be high in sodium. Look for foods with live cultures, such as yogurt and kefir. Choose high-fiber grains, such as whole-wheat breads, oat bran, and wheat cereals. Cooking Do not add salt to food when cooking. Place a salt shaker on the table and allow each person to addhis or her own salt to taste. Use vegetable protein, such as beans, textured vegetable protein (TVP), or tofu, instead of meat inpasta, casseroles, and soups. Meal planning Eat less salt, if told by your dietitian. To do this: ?Avoid eating processed or pre-made food. ?Avoid eating fast food. Eat less animal protein, including cheese, meat, poultry, or fish, if told by your dietitian. To dothis: ?Limit the number of times you have meat, poultry, fish, or cheese each week. Eat a diet free of meat at least 2 days a week. ?Eat only one serving each day of meat, poultry, fish, or seafood. ?When you prepare animal protein, cut pieces into small portion sizes. For most meat and fish, one serving is about the size of the palm of your hand. Eat at least five servings of fresh fruits and vegetables each day. To do this: ?Keep fruits and vegetables on hand for snacks. ?Eat one piece of fruit or a handful of berries with breakfast. ?Have a salad and fruit at lunch. ?Have two kinds of vegetables at dinner. Limit foods that are high in a substance called oxalate. These include: ?Spinach (cooked), rhubarb, beets, sweet potatoes, and [place] chard. ?Peanuts. ?Potato chips, eritrean fries, and baked potatoes with skin on. ?Nuts and nut products. ?Chocolate. If you regularly take a diuretic medicine, make sure to eat at least 1 or 2 servings of fruits or vegetables that are high in potassium each day. These include: ?Avocado. ?Banana. ?Trinity, prune, carrot, or tomato juice. ?Baked potato. ?Cabbage. ?Beans and split peas. Lifestyle Drink enough fluid to keep your urine pale yellow. This is the most important thing you can do. Spread your fluid intake throughout the day. If you drink alcohol: ?Limit how much you use to: ?0 1 drink a day for women who are not . ?0 2 drinks a day for men. ?Be aware of how much alcohol is in your drink. In the [place] one drink equals one 12 oz bottle of beer (355 mL), one 5 oz glass of wine (148 mL), or one 1 oz glass of hard liquor (44 mL). Lose weight if told by your health care provider. Work with your dietitian to find an eating plan and weight loss strategies that work best for you. General information Talk to your health care provider and dietitian about taking daily supplements. You may be told thefollowing depending on your health and the cause of your kidney stones: ?Not to take supplements with vitamin C. ?To take a calcium supplement. ?To take a daily probiotic supplement. ?To take other supplements such as magnesium, fish oil, or vitamin B6. Take ousf-had-hovxsps and prescription medicines only as told by your health care provider. These include supplements. What foods should I limit? Limit your intake of the following foods, or eat them as told by your dietitian. Vegetables Spinach. Rhubarb. Beets. Canned vegetables. Pickles. Olives. Baked potatoes with skin. Grains Wheat bran. Baked goods. Salted crackers. Cereals high in sugar. Meats and other proteins Nuts. Nut butters. Large portions of meat, poultry, or fish. Salted, precooked, or cured meats, such as sausages, meat loaves, and hot dogs. Dairy Cheese. Beverages Regular soft drinks. Regular vegetable juice. Seasonings and condiments Seasoning blends with salt. Salad dressings. Soy sauce. Ketchup. Barbecue sauce. Other foods Canned soups. Canned pasta sauce. Casseroles. Pizza. Lasagna. Frozen meals. Potato chips. Slovak fries. The items listed above may not be a complete list of foods and beverages you should limit. Contact a dietitian for more information. What foods should I avoid? Talk to your dietitian about specific foods you should avoid based on the type of kidney stones youhave and your overall health. Fruits Grapefruit. The item listed above may not be a complete list of foods and beverages you should avoid. Contact adietitian for more information. Summary Kidney stones are deposits of minerals and salts that form inside your kidneys. You can lower your risk of kidney stones by making changes to your diet. The most important thing you can do is drink enough fluid. Drink enough fluid to keep your urine pale yellow. Talk to your dietitian about how much calcium you should have each day, and eat less salt and animal protein as told by your dietitian. This information is not intended to replace advice given to you by your health care provider. Make sure you discuss any questions you have with your health care provider. Document Revised: 02/05/2022 Document Reviewed: 02/05/2022 [place] Patient Education 2022 [place]. Follow Up Care 07/10/2022 11:58:51 With:SUNITHA MARTE, Francisco Gonzalez, URL Address: [facility] [address], [place] [address]- [phone] When: Unknown Comments:24hr urine to be completed in January [facility] Radha 05-10-2023 NoteHNO ID: [id number] Author: Celso Arauz APRN.GREASE REFINING SUPERVISOR Service: ? Author Type: Nurse Practitioner Type: Progress Notes Filed: 10/17/2022 5:34 PM Note Text: BMI Obesity Medicine FollowUp Note Distance Health Visit October 17, 2022 I have communicated my name and active licensure. The patient's identity and physical location were verified at the time of this visit. Either the patient or their legal sales representative publications has been informed of the risks and benefits of -- and alternatives to -- treatment through a remote evaluation and consents to proceed with the evaluation remotely. Patient Summary: Viviane Teresa is 42 year old Female who presents virtually for follow-up evaluation of her obesity and related complications to the [facility] [place]. In our previous visits we have outlined an individualized lifestyle intervention including a personalized nutrition recommendations and physical activity optimization. Goal weight: 150 lb Index Surgery Date of Surgery: 08/05/2018 Surgeon: Heath Echols MD Surgical Procedure: LAPAROSCOPIC GASTRIC RESTRICTIVE SURG W/ BYPASS AND PARKER-EN-Y 150CM OR LESS Pre-surgical weight: 139.7 kg (308 lb) Override Index Surgery Information? No Gonzalo: 190 lb Highest weight: 364 lb JOSE L: Impression: Viviane Teresa is a 42 year old female with Class I obesity and the above obesity related complications. There is no height or weight on file to calculate BMI. Currently taking Mounjaro., responding well. Lifestyle improved. Motivated. Patient doing very well on Mounjaro 12.5 mg dosing currently. Agreeable to increasing to 15 mg if 12.5 mg is on back order due to shortage issues. Plan: -- continue current lifestyle -- Continue Mounjaro. (12.5 mg, can increase to 15 mg if needed) -- annual labs ordered today. Patient requests them to be mailed to her to have drawn at local lab. -- return to clinic/virtually in 2-3 months Weight Graph; (please see graph scanned in chart or EPIC synopsis below) Interval History: She specifies the following items as new or significant updates since the last appointment: Returns after 2 months Reports weight is decreased since the last visit. Down 8 lbs. Potassium was low, taking supplement. 20 mEq, recheck was normal. Calcium level improved. No Complaints. Notable impact with Mounjaro on appetite and satiety, please with results. Obesity Medications: Mounjaro. Start Date: 02/07/22 Weight: 190lbs Effects Reduced hunger, Reduction of appetite, and Reduction of cravings Reports appetite is controlled. SE: constipation initially. Starting date: Other AOMs Phentermine. Diet: -Protein shake daily -~80-85g/day - >64 oz fluid daily DAILY SUPPLEMENTS: Yes Calcium: Calcium Citrate w/ vitamin D (1200 - 1500mg) 500 mg TID Multivitamin AND Minerals: 1 per day Iron Supplement: included in multi-vitamin Vitamin B12: included in multivitamin Vitamin D3: included in multi-vitamin Other: N/A Exercise: -physical trainer 1x/week -Kickboxing 1x/week -Has home gym ?Sleep: No change in sleep, reports sleeping well. ??Stress: Increased, work stress. Review of Systems: The physical systems reviewed reveal no pathological symptoms that are pertinent to this visit History reviewed in Epic ALLERGIES No Known Allergies Current Outpatient Medications Medication Sig tirzepatide (MOUNJARO) 15 mg/0.5 mL pen injector Inject 15 mg subcutaneously one time a week. aripiprazole (ABILIFY ORAL) Take 5 mg by mouth daily at bedtime. hydroCHLOROthiazide (HYDRODIURIL, ESIDRIX) 12.5 mg tablet Take 12.5 mg by mouth once daily. buPROPion XL (WELLBUTRIN XL) 300 mg 24 hr tablet Take 300 mg by mouth once daily. polyethylene glycol 3350 (MIRALAX) 17 gram/dose powder Take by mouth once daily. Calcium Citrate 250 mg calcium tab Take 2 tablets by mouth three times daily. 2 tablets by mouth three times daily vitamin D3-vitamin K2, MK4, 1,000-100 unit-mcg tab Take 1 capsule by mouth three times daily. Lactobac no.41/Bifidobact no.7 (PROBIOTIC-10 ORAL) cetirizine (ZYRTEC) 10 mg tablet Take 10 mg by mouth. multivitamin (MULTIPLE VITAMINS ORAL) Take by mouth. No current facility-administered medications for this visit. PAST MEDICAL HISTORY Diagnosis Date Anxiety with depression 04/14/2021 Hypertension Kidney stones, calcium oxalate Obstructive sleep apnea S/P gastric bypass PAST SURGICAL HISTORY Procedure Laterality Date SECTION HX 2008, 2010 COLONOSCOPY EGD 09/20/2020 GASTRIC BYPASS HX 07/2018 HYSTERECTOMY 2013 KNEE SURGERY HX Right x 2 - last one ~1999 KNEE SURGERY HX Left high school NOSE SURGERY HX x3 - in high school WRIST SURGERY HX Right High school Social Connections: Not on file Family History Problem Relation Age of Onset Heart Mother heart valve Hypertension Mother No Known Problems Father Physical Exam: Ht 16 (more content not included)...[facility]05-10-2023 Instructions* Patient Instructions* Celso Arauz APRN.GREASE REFINING SUPERVISOR - 10/17/2022 4:10 PM EDT Images from the original note were not included. Please call your insurance company or look at your online formulary to see if any medications in the GLP-1 drug class are covered (Daciavy, Saxenda, Mounjaro, Ozempic, Victoza, Trulicity) and what, ifany, are the prior authorization requirements (usually they require a diagnosis of diabetes, prediabetes, insulin resistance or they require a trial of a different medication such as metformin or Xenical first). Other medications for weight loss that may be on your formulary are Contrave or Qsymia. Please make sure that you Rx benefits card is uploaded to [employer], most of them are separate from your insurance card. This can expedite our prior authorization process. [email or web address] Take Colace - 1 to 2 times per day. Take Miralax daily Increase water intake to a goal of 64 ounces Take Suppository or laxatives as needed. If the problem persists I would consider the addition of fiber and/or probiotics. Foods to help with constipation The 17 Best Foods to Relieve Constipation (UPlanMe) Foods to avoid Foods You Should Never Eat When You're Constipated (Aristotl) [facility] History of Present illness Narrative* Celso Arauz APRN.SAMANTHA - 10/17/2022 4:00 PM EDT Images from the original note were not included. BMI Obesity Medicine FollowUp Note Distance Health Visit October 17, 2022 I have communicated my name and active licensure. The patient's identity and physical location wereverified at the time of this visit. Either the patient or their legal sales representative publications has been informed of the risks and benefits of -- and alternatives to -- treatment through a remote evaluation andconsents to proceed with the evaluation remotely. Patient Summary: Viviane Teresa is 42 year old Female who presents virtually for follow-up evaluation of her obesity and related complications [facility] the [facility] [place]. In our previous visits we have outlined an individualized lifestyle intervention including a personalized nutrition recommendations and physical activity optimization. Goal weight: 150 lb Index Surgery Date of Surgery: 08/05/2018 Surgeon: Heath Echols MD Surgical Procedure: LAPAROSCOPIC GASTRIC RESTRICTIVE SURG W/ BYPASS & PARKER-EN-Y 150CM OR LESS Pre-surgical weight: 139.7 kg (308 lb) Override Index Surgery Information? No Gonzalo: 190 lb Highest weight: 364 lb JOSE L: Impression: Viviane Teresa is a 42 year old female with Class I obesity and the above obesity related complications. There is no height or weight on file to calculate BMI. Currently taking Mounjaro., responding well. Lifestyle improved. Motivated. Patient doing very well on Mounjaro 12.5 mg dosing currently. Agreeable to increasing to 15 mg if 12.5 mg is on back order due to shortage issues. Plan: -- continue current lifestyle -- Continue Mounjaro. (12.5 mg, can increase to 15 mg if needed) -- annual labs ordered today. Patient requests them to be mailed to her to have drawn at local lab. -- return to clinic/virtually in 2-3 months Weight Graph; (please see graph scanned in chart or EPIC synopsis below) Interval History: She specifies the following items as new or significant updates since the last appointment: Returns after 2 months Reports weight is decreased since the last visit. Down 8 lbs. Potassium was low, taking supplement. 20 mEq, recheck was normal. Calcium level improved. No Complaints. Notable impact with Mounjaro on appetite and satiety, please with results. Obesity Medications: Mounjaro. Start Date: 02/07/22 Weight: 190lbs Effects Reduced hunger, Reduction of appetite, and Reduction of cravings Reports appetite is controlled. SE: constipation initially. Starting date: Other AOMs Phentermine. Diet: -Protein shake daily -~80-85g/day - >64 oz fluid daily DAILY SUPPLEMENTS: Yes Calcium: Calcium Citrate w/ vitamin D (1200 - 1500mg) 500 mg TID Multivitamin & Minerals: 1 per day Iron Supplement: included in multi-vitamin Vitamin B12: included in multivitamin Vitamin D3: included in multi-vitamin Other: N/A Exercise: -physical trainer 1x/week -Kickboxing 1x/week -Has home gym ?Sleep: No change in sleep, reports sleeping well. ??Stress: Increased, work stress. Review of Systems: The physical systems reviewed reveal no pathological symptoms that are pertinent to this visit History reviewed in Epic ALLERGIES No Known Allergies Current Outpatient Medications Medication Sig tirzepatide (MOUNJARO) 15 mg/0.5 mL pen injector Inject 15 mg subcutaneously one time a week. aripiprazole (ABILIFY ORAL) Take 5 mg by mouth daily at bedtime. hydroCHLOROthiazide (HYDRODIURIL, ESIDRIX) 12.5 mg tablet Take 12.5 mg by mouth once daily. buPROPion XL (WELLBUTRIN XL) 300 mg 24 hr tablet Take 300 mg by mouth once daily. polyethylene glycol 3350 (MIRALAX) 17 gram/dose powder Take by mouth once daily. Calcium Citrate 250 mg calcium tab Take 2 tablets by mouth three times daily. 2 tablets by mouth three times daily vitamin D3-vitamin K2, MK4, 1,000-100 unit-mcg tab Take 1 capsule by mouth three times daily. Lactobac no.41/Bifidobact no.7 (PROBIOTIC-10 ORAL) cetirizine (ZYRTEC) 10 mg tablet Take 10 mg by mouth. multivitamin (MULTIPLE VITAMINS ORAL) Take by mouth. No current facility-administered medications for this visit. PAST MEDICAL HISTORY Diagnosis Date Anxiety with depression 04/14/2021 Hypertension Kidney stones, calcium oxalate Obstructive sleep apnea S/P gastric bypass PAST SURGICAL HISTORY Procedure Laterality Date SECTION HX 2008, 2010 COLONOSCOPY EGD 09/20/2020 GASTRIC BYPASS HX 07/2018 HYSTERECTOMY 2013 KNEE SURGERY HX Right x 2 - last one ~1999 KNEE SURGERY HX Left high school NOSE SURGERY HX x3 - in high school WRIST SURGERY HX Right High school Social Connections: Not on file Family History Problem Relation Age of Onset Heart Mother heart valve Hypertension Mother No Known Problems Father Physical Exam: Ht 167.6 cm (5' 6 ) Wt 76.7 kg (169 lb) BMI 27.28 kg/m 76.7 kg (169 lb) Patient reported weight. VIDEO EXAM: (if done, performed via video enabled technology) Results: reviewed labs with the patient. Impression: Viviane Teresa is a 42 year old overweight female and the above obesity related complications. Body mass index is 27.28 kg/m . Currently taking Mounjaro., responding well. Lifestyle improved. Motivated. Patient doing very well on Mounjaro 15 mg dosing currently. Plan: -- continue current lifestyle -- Continue Mounjaro. -- return to clinic/virtually in 3 months I spent a total of 22 minutes on the date of the service which included preparing to see the patient, [id number] patient care, completing clinical documentation, obtaining and/or reviewing separately obtained history, performing a medically appropriate examination, counseling and educating the pat ient/family/caregiver, and ordering medications, tests, or procedures. Celso Arauz APRN.SAMANTHA All documentation from previous visit was copied and pasted, documentation has been reviewed and edited as necessary for today's visit. [facility] Hospital Discharge instructions Patient Education 08/16/2022 08:13:05 Essential Tremor Essential Tremor A tremor is trembling or shaking that a person cannot control. Most tremors affect the hands or arms. Tremors can also affect the head, vocal cords, legs, and other parts of the body. Essential tremor is a tremor without a known cause. Usually, it occurs while a person is trying to perform an action. It tends to get worse gradually as a person ages. What are the causes? The cause of this condition is not known. What increases the risk? You are more likely to develop this condition if: You have a family member with essential tremor. You are age 40 or older. You take certain medicines. What are the signs or symptoms? The main sign of a tremor is a rhythmic shaking of certain parts of your body that is uncontrolled and unintentional. You may: Have difficulty eating with a spoon or fork. Have difficulty writing. Nod your head up and down or side to side. Have a quivering voice. The shaking may: Get worse over time. Come and go. Be more noticeable on one side of your body. Get worse due to stress, fatigue, caffeine, and extreme heat or cold. How is this diagnosed? This condition may be diagnosed based on: Your symptoms and medical history. A physical exam. There is no single test to diagnose an essential tremor. However, your health care provider may order tests to rule out other causes of your condition. These may include: Blood and urine tests. Imaging studies of your brain, such as CT scan and MRI. A test that measures involuntary muscle movement (electromyogram). How is this treated? Treatment for essential tremor depends on the severity of the condition. Some tremors may go away without treatment. Mild tremors may not need treatment if they do not affect your day-to-day life. Severe tremors may need to be treated using one or more of the following options: ?Medicines. ?Lifestyle changes. ?Occupational or physical therapy. Follow these instructions at home: Lifestyle Do not use any products that contain nicotine or tobacco, such as cigarettes and e-cigarettes. If you need help quitting, ask your health care provider. Limit your caffeine intake as told by your health care provider. Try to get 8 hours of sleep each night. Find ways to manage your stress that fits your lifestyle and personality. Consider trying meditation or yoga. Try to anticipate stressful situations and allow extra time to manage them. If you are struggling emotionally with the effects of your tremor, consider working with a mental health provider. General instructions Take gozf-ukh-cxsyhen and prescription medicines only as told by your health care provider. Avoid extreme heat and extreme cold. Keep all follow-up visits as told by your health care provider. This is important. Visits may include physical therapy visits. Contact a health care provider if: You experience any changes in the location or intensity of your tremors. You start having a tremor after starting a new medicine. You have tremor with other symptoms, such as: ?Numbness. ?Tingling. ?Pain. ?Weakness. Your tremor gets worse. Your tremor interferes with your daily life. You feel down, blue, or sad for at least 2 weeks in a row. Worrying about your tremor and what other people think about you interferes with your everyday lifefunctions, including relationships, work, or school. Summary Essential tremor is a tremor without a known cause. Usually, it occurs when you are trying to perform an action. The cause of this condition is not known. The main sign of a tremor is a rhythmic shaking of certain parts of your body that is uncontrolled and unintentional. Treatment for essential tremor depends on the severity of the condition. This information is not intended to replace advice given to you by your health care provider. Make sure you discuss any questions you have with your health care provider. Document Released: 06/17/2015 Document Revised: 06/06/2018 Document Reviewed: 06/06/2018 [employer] Patient Education 2020 [place]. Follow Up Care 02/08/2022 10:13:41 With:KIP MARTE, Eldon [facility] Address: [address] [place], [place] [id number]- When:6 months [facility] 03-01-2023 NoteHNO ID: [id number] Author: Celso Arauz APRN.GREASE REFINING SUPERVISOR Service: ? Author Type: Nurse Practitioner Type: Progress Notes Filed: 08/08/2022 12:18 PM Note Text: BMI Obesity Medicine FollowUp Note Distance Health Visit August 08, 2022 Virtual Visit (Audio/Visual) I have discussed the nature of this visit with the patient which will occur via [employer] [facility] (Phone, Virtual Visit) and she agrees to proceed with this interaction . Patient Summary: Viviane Teresa is 41 year old Female who presents virtually for follow-up evaluation of her obesity and related complications to the [facility] [place]. In our previous visits we have outlined an individualized lifestyle intervention including a personalized nutrition recommendations and physical activity optimization. Index Surgery Date of Surgery: 08/05/2018 Surgeon: Heath Echols MD Surgical Procedure: LAPAROSCOPIC GASTRIC RESTRICTIVE SURG W/ BYPASS AND PARKER-EN-Y 150CM OR LESS Pre-surgical weight: 139.7 kg (308 lb) Override Index Surgery Information? No Gonzalo: Weight Graph; (please see graph scanned in chart or EPIC synopsis below) Interval History: She specifies the following items as new or significant updates since the last appointment: Returns after 3 months Reports weight is decreased since the last visit. No Complaints. Notable impact with Mounjaro on appetite and satiety, please with results. Obesity Medications: Mounjaro. Start Date: 02/07/22 Weight: 190lbs Effects Reduced hunger, Reduction of appetite, and Reduction of cravings Reports appetite is controlled. SE: constipation initially. Other AOMs Phentermine. Diet: -Protein shake daily -~80-85g/day - >64 oz fluid daily Exercise: -physical trainer 1x/week -Kickboxing 1x/week -Has home gym ?Sleep: No change in sleep, reports sleeping well. ??Stress: none Review of Systems: The physical systems reviewed reveal no pathological symptoms that are pertinent to this visit History reviewed in Epic ALLERGIES No Known Allergies Current Outpatient Medications Medication Sig tirzepatide (MOUNJARO) 12.5 mg/0.5 mL pen injector Inject 12.5 mg subcutaneously one time a week. aripiprazole (ABILIFY ORAL) Take 5 mg by mouth daily at bedtime. hydroCHLOROthiazide (HYDRODIURIL, ESIDRIX) 12.5 mg tablet Take 12.5 mg by mouth once daily. buPROPion XL (WELLBUTRIN XL) 300 mg 24 hr tablet Take 300 mg by mouth once daily. polyethylene glycol 3350 (MIRALAX) 17 gram/dose powder Take by mouth once daily. Calcium Citrate 250 mg calcium tab Take 2 tablets by mouth three times daily. 2 tablets by mouth three times daily vitamin D3-vitamin K2, MK4, 1,000-100 unit-mcg tab Take 1 capsule by mouth three times daily. Lactobac no.41/Bifidobact no.7 (PROBIOTIC-10 ORAL) cetirizine (ZYRTEC) 10 mg tablet Take 10 mg by mouth. multivitamin (MULTIPLE VITAMINS ORAL) Take by mouth. No current facility-administered medications for this visit. PAST MEDICAL HISTORY Diagnosis Date Anxiety with depression 04/14/2021 Hypertension Kidney stones, calcium oxalate Obstructive sleep apnea S/P gastric bypass PAST SURGICAL HISTORY Procedure Laterality Date SECTION HX 2008, 2010 COLONOSCOPY EGD 09/20/2020 GASTRIC BYPASS HX 07/2018 HYSTERECTOMY 2013 KNEE SURGERY HX Right x 2 - last one ~1999 KNEE SURGERY HX Left high school NOSE SURGERY HX x3 - in high school WRIST SURGERY HX Right High school Social Connections: Not on file Family History Problem Relation Age of Onset Heart Mother heart valve Hypertension Mother No Known Problems Father Physical Exam: Ht 167.6 cm (5' 6 ) Wt 80.6 kg (177 lb 9.6 oz) BMI 28.67 kg/m? 80.6 kg (177 lb 9.6 oz) Patient reported weight. VIDEO EXAM: (if done, performed via video enabled technology) Results: reviewed labs with the patient. Impression: Viviane Teresa is a 41 year old female with Class I obesity and the above obesity related complications. Body mass index is 28.67 kg/m?. Currently taking Mounjaro., responding well. Lifestyle improved. Motivated. Patient doing very well on Mounjaro 12.5 mg dosing currently. Agreeable to increasing to 15 mg if 12.5 mg is on back order due to shortage issues. Plan: -- continue current lifestyle -- Continue Mounjaro. (12.5 mg, can increase to 15 mg if needed) -- annual labs ordered today. Patient requests them to be mailed to her to have drawn at local lab. -- return to clinic/virtually in 2-3 months I spent a total of 20 minutes on the date of the service which included preparing to see the patient, [id number] patient care, completing clinical documentation, obtaining and/or reviewing separately obtained history, performing a medically appropriate examination, counseling and educating the patient/family/caregiver, and ordering medications, tests, or procedures. Celso Arauz APRN.GREASE REFINING SUPERVISOR All documentati (more content not included)...[facility] 08-08-2022 Instructions* Patient Instructions* Celso Arauz APRN.SAMANTHA - 08/08/2022 12:11 PM EST Preserving Healthy Muscle during Weight Loss 1) persons with obesity have more muscle mass than those with normal weight but poor muscle quality; 2) weight loss reduces muscle mass without adversely affecting muscle strength and improves global physical function, most likely because of reduced fat mass; 3) adding exercise (endurance and resistance type) to a hypocaloric diet helps preserve muscle massduring weight loss, and resistance-type exercise also improves muscle strength; 4) high protein intake helps preserve lean body and muscle mass but does not improve muscle strength and could have adverse effects on metabolic function. We therefore conclude that weight-loss therapy, including a hypocaloric diet with adequate (but not excessive) protein intake, and physical activity, particularly resistance exercise-type training, should be promoted to maintain muscle mass andimprove muscle strength and physical function in persons with obesity. https://www.ncbi.nlm.nih.gov/pmc/articles/FOT2504688/ documented in [facility] History of Present illness Narrative* Celso Arauz APRN.SAMANTHA - 08/08/2022 12:00 PM EST Images from the original note were not included. BMI Obesity Medicine FollowUp Note Distance Health Visit August 08, 2022 Virtual Visit (Audio/Visual) I have discussed the nature of this visit with the patient which will occur via [employer] [facility] (Phone, Virtual Visit) and she agrees to proceed with this interaction . Patient Summary: Viviane Teresa is 41 year old Female who presents virtually for follow-up evaluation of her obesity and related complications to the [facility] [place]. In our previous visits we have outlined an individualized lifestyle intervention including a personalized nutrition recommendations and physical activity optimization. Index Surgery Date of Surgery: 08/05/2018 Surgeon: Heath Echols MD Surgical Procedure: LAPAROSCOPIC GASTRIC RESTRICTIVE SURG W/ BYPASS & PARKER-EN-Y 150CM OR LESS Pre-surgical weight: 139.7 kg (308 lb) Override Index Surgery Information? No Gonzalo: Weight Graph; (please see graph scanned in chart or EPIC synopsis below) Interval History: She specifies the following items as new or significant updates since the last appointment: Returns after 3 months Reports weight is decreased since the last visit. No Complaints. Notable impact with Mounjaro on appetite and satiety, please with results. Obesity Medications: Mounjaro. Start Date: 02/07/22 Weight: 190lbs Effects Reduced hunger, Reduction of appetite, and Reduction of cravings Reports appetite is controlled. SE: constipation initially. Other AOMs Phentermine. Diet: -Protein shake daily -~80-85g/day - >64 oz fluid daily Exercise: -physical trainer 1x/week -Kickboxing 1x/week -Has home gym ?Sleep: No change in sleep, reports sleeping well. ??Stress: none Review of Systems: The physical systems reviewed reveal no pathological symptoms that are pertinent to this visit History reviewed in Epic ALLERGIES No Known Allergies Current Outpatient Medications Medication Sig tirzepatide (MOUNJARO) 12.5 mg/0.5 mL pen injector Inject 12.5 mg subcutaneously one time a week. aripiprazole (ABILIFY ORAL) Take 5 mg by mouth daily at bedtime. hydroCHLOROthiazide (HYDRODIURIL, ESIDRIX) 12.5 mg tablet Take 12.5 mg by mouth once daily. buPROPion XL (WELLBUTRIN XL) 300 mg 24 hr tablet Take 300 mg by mouth once daily. polyethylene glycol 3350 (MIRALAX) 17 gram/dose powder Take by mouth once daily. Calcium Citrate 250 mg calcium tab Take 2 tablets by mouth three times daily. 2 tablets by mouth three times daily vitamin D3-vitamin K2, MK4, 1,000-100 unit-mcg tab Take 1 capsule by mouth three times daily. Lactobac no.41/Bifidobact no.7 (PROBIOTIC-10 ORAL) cetirizine (ZYRTEC) 10 mg tablet Take 10 mg by mouth. multivitamin (MULTIPLE VITAMINS ORAL) Take by mouth. No current facility-administered medications for this visit. PAST MEDICAL HISTORY Diagnosis Date Anxiety with depression 04/14/2021 Hypertension Kidney stones, calcium oxalate Obstructive sleep apnea S/P gastric bypass PAST SURGICAL HISTORY Procedure Laterality Date SECTION HX 2008, 2010 COLONOSCOPY EGD 09/20/2020 GASTRIC BYPASS HX 07/2018 HYSTERECTOMY 2013 KNEE SURGERY HX Right x 2 - last one ~1999 KNEE SURGERY HX Left high school NOSE SURGERY HX x3 - in high school WRIST SURGERY HX Right High school Social Connections: Not on file Family History Problem Relation Age of Onset Heart Mother heart valve Hypertension Mother No Known Problems Father Physical Exam: Ht 167.6 cm (5' 6 ) Wt 80.6 kg (177 lb 9.6 oz) BMI 28.67 kg/m 80.6 kg (177 lb 9.6 oz) Patient reported weight. VIDEO EXAM: (if done, performed via video enabled technology) Results: reviewed labs with the patient. Impression: Viviane Teresa is a 41 year old female with Class I obesity and the above obesity related complications. Body mass index is 28.67 kg/m . Currently taking Mounjaro., responding well. Lifestyle improved. Motivated. Patient doing very well on Mounjaro 12.5 mg dosing currently. Agreeable to increasing to 15 mg if 12.5 mg is on back order due to shortage issues. Plan: -- continue current lifestyle -- Continue Mounjaro. (12.5 mg, can increase to 15 mg if needed) -- annual labs ordered today. Patient requests them to be mailed to her to have drawn at local lab. -- return to clinic/virtually in 2-3 months I spent a total of 20 minutes on the date of the service which included preparing to see the patient, [id number] patient care, completing clinical documentation, obtaining and/or reviewing separately obtained history, performing a medically appropriate examination, counseling and educating the pat ient/family/caregiver, and ordering medications, tests, or procedures. Celso Arauz APRN.SAMANTHA All documentation from previous visit was copied and pasted, documentation has been reviewed and edited as necessary for today's visit. [facility] History of Present illness Narrative* Jennifer Rollins APRN.SAMANTHA - 05/15/2022 11:30 AM EST Images from the original note were not included. BMI Obesity Medicine FollowUp Note Distance Health Visit May 15, 2022 Virtual Visit (Audio/Visual) I have discussed the nature of this visit with the patient which will occur via [facility] (Phone, Virtual Visit) and she agrees to proceed with this interaction . Patient Summary: Viviane Teresa is 41 year old Female who presents virtually for follow-up evaluation of her obesity and related complications to the [facility] [place]. In our previous visits we have outlined an individualized lifestyle intervention including a personalized nutrition recommendations and physical activity optimization. Index Surgery Date of Surgery: 08/05/2018 Surgeon: Heath Echols MD Surgical Procedure: LAPAROSCOPIC GASTRIC RESTRICTIVE SURG W/ BYPASS & PARKER-EN-Y 150CM OR LESS Pre-surgical weight: 139.7 kg (308 lb) Override Index Surgery Information? No Weight Graph; (please see graph scanned in chart or EPIC synopsis below) Interval History: She specifies the following items as new or significant updates since the last appointment: Returns after 3 months Reports weight is decreased] since the last visit. Patient reports weight loss stall over the last several months. Has recently increased daily protein intake and noted weight loss again. Will start to focus on diet and prioritize protein intake going forward. Obesity Medications: Mounjaro. Start Date: 02/07/22 Weight: 190lbs Effects Reduced hunger, Reduction of appetite, and Reduction of cravings Reports appetite is controlled. Reports satiety is controlled. Other AOMs Phentermine. Diet: -Protein shake daily -~80-85g/day - >64 oz fluid daily Exercise: -physical trainer 1x/week -Kickboxing 1x/week -Has home gym ?Sleep: No change in sleep, reports sleeping well. ??Stress: none Review of Systems: The physical systems reviewed reveal no pathological symptoms that are pertinent to this visit History reviewed in Epic ALLERGIES No Known Allergies Current Outpatient Medications Medication Sig tirzepatide (MOUNJARO) 10 mg/0.5 mL pen injector Inject 10 mg subcutaneously one time a week. tirzepatide (MOUNJARO) 5 mg/0.5 mL pen injector Inject 5 mg subcutaneously one time a week. aripiprazole (ABILIFY ORAL) Take 5 mg by mouth daily at bedtime. hydroCHLOROthiazide (HYDRODIURIL, ESIDRIX) 12.5 mg tablet Take 12.5 mg by mouth once daily. buPROPion XL (WELLBUTRIN XL) 300 mg 24 hr tablet Take 300 mg by mouth once daily. mupirocin (BACTROBAN) 2 % ointment Apply to incisions twice daily FLUoxetine (PROZAC) 20 mg capsule Take 1 capsule by mouth once daily. (Patient taking differently: Take 40 mg by mouth once daily. ) buPROPion (WELLBUTRIN) 100 mg tablet Take 1 tablet by mouth three times daily. melatonin 1 mg tablet Take 1 tablet by mouth as needed for for insomnia. polyethylene glycol 3350 (MIRALAX) 17 gram/dose powder Take by mouth once daily. Calcium Citrate 250 mg calcium tab Take 2 tablets by mouth three times daily. 2 tablets by mouth three times daily vitamin D3-vitamin K2, MK4, 1,000-100 unit-mcg tab Take 1 capsule by mouth three times daily. Lactobac no.41/Bifidobact no.7 (PROBIOTIC-10 ORAL) diphenhydrAMINE (BENADRYL) 25 mg capsule cetirizine (ZYRTEC) 10 mg tablet Take 10 mg by mouth. multivitamin (MULTIPLE VITAMINS ORAL) Take by mouth. No current facility-administered medications for this visit. PAST MEDICAL HISTORY Diagnosis Date Anxiety with depression 04/14/2021 Hypertension Kidney stones, calcium oxalate Obstructive sleep apnea S/P gastric bypass PAST SURGICAL HISTORY Procedure Laterality Date SECTION HX 2008, 2010 COLONOSCOPY EGD 09/20/2020 GASTRIC BYPASS HX 07/2018 HYSTERECTOMY 2013 KNEE SURGERY HX Right x 2 - last one ~1999 KNEE SURGERY HX Left high school NOSE SURGERY HX x3 - in high school WRIST SURGERY HX Right High school Social Connections: Not on file Family History Problem Relation Age of Onset Heart Mother heart valve Hypertension Mother No Known Problems Father Physical Exam: Weight: 85.3 kg (188 lb) Patient reported weight. VIDEO EXAM: (if done, performed via video enabled technology) Results: reviewed labs with the patient. Impression: Viviane Teresa is a 41 year old year old female with Class I obesity and the above obesity relatedcomplications. Body mass index is 30.34 kg/m . Currently taking Mounjaro., responding well. Lifestyle improved. Motivated. Patient doing very well on Mounjaro 5mg dosing currently. Would like to increase, discussed that due to national shortage, next dosage available 10mg. Risks and benefits discussed with patient, she would like to proceed. Plan: -- continue current lifestyle -- Continue Mounjaro. (Increase to 10 mg) -- return to clinic/virtually in 2-3 months I spent a total of 19 minutes on the date of the service which included preparing to see the patient, [id number] patient care, completing clinical documentation, obtaining and/or reviewing separately obtained history, performing a medically appropriate examination, counseling and educating the pat ient/family/caregiver, and ordering medications, tests, or procedures. Jennifer Rollins APRN.SAMANTHA [facility] Hospital Discharge instructions Patient Education 02/07/2022 15:32:43 Health Maintenance, Female Health Maintenance, Female Adopting a healthy lifestyle and getting preventive care are important in promoting health and wellness. Ask your health care provider about: The right schedule for you to have regular tests and exams. Things you can do on your own to prevent diseases and keep yourself healthy. What should I know about diet, weight, and exercise? Eat a healthy diet Eat a diet that includes plenty of vegetables, fruits, low-fat dairy products, and lean protein. Do not eat a lot of foods that are high in solid fats, added sugars, or sodium. Maintain a healthy weight Body mass index (BMI) is used to identify weight problems. It estimates body fat based on height and weight. Your health care provider can help determine your BMI and help you achieve or maintain a healthy weight. Get regular exercise Get regular exercise. This is one of the most important things you can do for your health. Most adults should: Exercise for at least 150 minutes each week. The exercise should increase your heart rate and make you sweat (moderate-intensity exercise). Do strengthening exercises at least twice a week. This is in addition to the moderate-intensity exercise. Spend less time sitting. Even light physical activity can be beneficial. Watch cholesterol and blood lipids Have your blood tested for lipids and cholesterol at 20 years of age, then have this test every 5 years. Have your cholesterol levels checked more often if: Your lipid or cholesterol levels are high. You are older than 40 years of age. You are at high risk for heart disease. What should I know about cancer screening? Depending on your health history and family history, you may need to have cancer screening at various ages. This may include screening for: Breast cancer. Cervical cancer. Colorectal cancer. Skin cancer. Lung cancer. What should I know about heart disease, diabetes, and high blood pressure? Blood pressure and heart disease High blood pressure causes heart disease and increases the risk of stroke. This is more likely to develop in people who have high blood pressure readings, are of descent, or are overweight. Have your blood pressure checked: ?Every 3 5 years if you are 18 39 years of age. ?Every year if you are 40 years old or older. Diabetes Have regular diabetes screenings. This checks your fasting blood sugar level. Have the screening done: Once every three years after age 40 if you are at a normal weight and have a low risk for diabetes. More often and at a younger age if you are overweight or have a high risk for diabetes. What should I know about preventing infection? Hepatitis B If you have a higher risk for hepatitis B, you should be screened for this virus. Talk with your health care provider to find out if you are at risk for hepatitis B infection. Hepatitis C Testing is recommended for: Everyone born from 1945 through 1965. Anyone with known risk factors for hepatitis C. Sexually transmitted infections (STIs) Get screened for STIs, including gonorrhea and chlamydia, if: ?You are sexually active and are younger than 24 years of age. ?You are older than 24 years of age and your health care provider tells you that you are at risk for this type of infection. ?Your sexual activity has changed since you were last screened, and you are at increased risk for chlamydia or gonorrhea. Ask your health care provider if you are at risk. Ask your health care provider about whether you are at high risk for HIV. Your health care providermay recommend a prescription medicine to help prevent HIV infection. If you choose to take medicineto prevent HIV, you should first get tested for HIV. You should then be tested every 3 months for as long as you are taking the medicine. If you are about to stop having your period (premenopausal) and you may become , seek counseling before you get . Take 400 to 800 micrograms (mcg) of folic acid every day if you become . Ask for control (contraception) if you want to prevent . Osteoporosis and menopause Osteoporosis is a disease in which the bones lose minerals and strength with aging. This can resultin bone fractures. If you are 65 years old or older, or if you are at risk for osteoporosis and fractures, ask your health care provider if you should: Be screened for bone loss. Take a calcium or vitamin D supplement to lower your risk of fractures. Be given hormone replacement therapy (HRT) to treat symptoms of menopause. Follow these instructions at home: Lifestyle Do not use any products that contain nicotine or tobacco, such as cigarettes, e- cigarettes, and chewing tobacco. If you need help quitting, ask your health care provider. Do not use street drugs. Do not share needles. Ask your health care provider for help if you need support or information about quitting drugs. Alcohol use Do not drink alcohol if: ?Your health care provider tells you not to drink. ?You are , may be , or are planning to become . If you drink alcohol: ?Limit how much you use to 0 1 drink a day. ?Limit intake if you are . Be aware of how much alcohol is in your drink. In the [place] one drink equals one 12 oz bottle of beer (355 mL), one 5 oz glass of wine (148 mL), or one 1 oz glass of hard liquor (44 mL). General instructions Schedule regular health, dental, and eye exams. Stay current with your vaccines. Tell your health care provider if: ?You often feel depressed. ?You have ever been abused or do not feel safe at home. Summary Adopting a healthy lifestyle and getting preventive care are important in promoting health and wellness. Follow your health care provider's instructions about healthy diet, exercising, and getting tested or screened for diseases. Follow your health care provider's instructions on monitoring your cholesterol and blood pressure. This information is not intended to replace advice given to you by your health care provider. Make sure you discuss any questions you have with your health care provider. Document Released: 12/10/2011 Document Revised: 05/20/2019 Document Reviewed: 05/20/2019 [employer] Patient Education 2020 [place]. Follow Up Care 10/02/2021 16:09:57 With:KIP MARTE, TYSON Briggs Address: [address] [place], [place] [id number]- When:6 months Comments:plan to get mamm[facility] [place] 08-31-2022 Instructions* Patient Instructions* Celso Arauz APRN.GREASE REFINING SUPERVISOR - 02/07/2022 9:31 AM EDT Savings Card: https://www.Zuppler/savings-resources Medication Guide: https://pi.kimberly.com/us/atidybug-tt-bq.pdf?s=mg How to Use Pen: https://uspl.[employer].com/mounjaro/mounjaro.html#ug0 Tirzepatide: Patient drug information What is Mounjaro? Mounjaro is an injectable prescription medicine that is used along with diet and exercise to improve blood sugar (glucose) in adults with type 2 diabetes mellitus. It is not known if Mounjaro can be used in people who have had inflammation of the pancreas (pancreatitis). Mounjaro is not for use in people with type 1 diabetes. It is not known if Mounjaro is safeand effective for use in children under 18 years of age. It works in multiple ways. It helps: - THE BODY RELEASE INSULIN WHEN BLOOD SUGAR IS HIGH - THE BODY REMOVE EXCESS SUGAR FROM THE BLOOD - STOP THE LIVER FROM MAKING AND RELEASING TOO MUCH SUGAR - REDUCE HOW MUCH FOOD IS EATEN - SLOW DOWN HOW QUICKLY FOOD LEAVES THE STOMACH. THIS LESSENS OVER TIME. You can learn about possible side effects of Mounjaro here. Select Safety Information Changes in vision. Tell your healthcare provider if you have changes in vision during treatment with Mounjaro PURPOSE AND SAFETY SUMMARY WITH WARNINGS Important Facts About Mounjaro ([id number]). It is also known as tirzepatide. Mounjaro is an injectable prescription medicine for adults with type 2 diabetes used along with diet and exercise to improve blood sugar (glucose). It is not known if Mounjaro can be used in people who have had inflammation of the pancreas (pancreatitis). Mounjaro is not for use in people with type 1 diabetes. It is not known if Mounjaro is safeand effective for use in children under 18 years of age. Warnings Mounjaro may cause tumors in the thyroid, including thyroid cancer. Watch for possible symptoms, such as a lump or swelling in the neck, hoarseness, trouble swallowing, or shortness of breath. If youhave a symptom, tell your healthcare provider. Do not use Mounjaro if you or any of your family have ever had a type of thyroid cancer called medullary thyroid carcinoma (MTC). Do not use Mounjaro if you have Multiple Endocrine Neoplasia syndrome type 2 (MEN 2). Do not use Mounjaro if you are allergic to tirzepatide or any of the ingredients in Mounjaro. Mounjaro may cause serious side effects, including: Inflammation of the pancreas (pancreatitis). Stop using Mounjaro and call your healthcare provider right away if you have severe pain in your stomach area (abdomen) that will not go away, with or without vomiting. You may feel the pain from your abdomen to your back. Low blood sugar (hypoglycemia). Your risk for getting low blood sugar may be higher if you use Mounjaro with another medicine that can cause low blood sugar, such as a sulfonylurea or insulin. Signs and symptoms of low blood sugar may include dizziness or light-headedness, sweating, confusion or drowsiness, headache, blurred vision, slurred speech, shakiness, fast heartbeat, anxiety, irritability, or mood changes, hunger, weakness and feeling jittery. Serious allergic reactions. Stop using Mounjaro and get medical help right away if you have any symptoms of a serious allergic reaction, including swelling of your face, lips, tongue or throat, problems breathing or swallowing, severe rash or itching, fainting or feeling dizzy, and very rapid heartbeat. Kidney problems (kidney failure). In people who have kidney problems, diarrhea, nausea, and vomiting may cause a loss of fluids (dehydration), which may cause kidney problems to get worse. It is important for you to drink fluids to help reduce your chance of dehydration. Severe stomach problems. Stomach problems, sometimes severe, have been reported in people who use Mounjaro. Tell your healthcare provider if you have stomach problems that are severe or will not go away. Changes in vision. Tell your healthcare provider if you have changes in vision during treatment with Mounjaro. Gallbladder problems. Gallbladder problems have happened in some people who use Mounjaro. Tell yourhealthcare provider right away if you get symptoms of gallbladder problems, which may include pain in your upper stomach (abdomen), fever, yellowing of skin or eyes (jaundice), and rich-colored stools. Common side effects The most common side effects of Mounjaro include nausea, diarrhea, decreased appetite, vomiting, constipation, indigestion, and stomach (abdominal) pain. These are not all the possible side effects of Mounjaro. Talk to your healthcare provider about any side effect that bothers you or doesn't go away. Tell your healthcare provider if you have any side effects. You can report side effects at 4-594-VLB-5468 or www.fda.gov/medwatch. Before using Your healthcare provider should show you how to use Mounjaro before you use it for the first time. Before you use Mounjaro, talk to your healthcare provider about low blood sugar and how to manage it. Review these questions with your healthcare provider: Do you have other medical conditions, including problems with your pancreas or kidneys, or severe problems with your stomach, such as slowed emptying of your stomach (gastroparesis) or problems digesting food? Do you take other diabetes medicines, such as insulin or sulfonylureas? Do you have a history of diabetic retinopathy? Are you or plan to become or or plan to breastfeed? It is not knownif Mounjaro will harm your unborn baby. Do you take control pills by mouth? These may not work as well while using Mounjaro. Your healthcare provider may recommend another type of control when you start Mounjaro or when you increase your dose. Do you take any other prescription medicines or gjzf-dys-huhynpu drugs, vitamins, or herbal supplements? How to take Read the Instructions for Use that come with Mounjaro. Use Mounjaro exactly as your healthcare provider says. Mounjaro is injected under the skin (subcutaneously) of your stomach (abdomen), thigh, or upper arm. Use Mounjaro 1 time each week, at any time of the day. Do not mix insulin and Mounjaro together in the same injection. If you take too much Mounjaro, call your healthcare provider or seek medical advice promptly. Learn more For more information, call 7-690-KugtnCe ( ) or go to www.[employer]. This information does not take the place of talking with your healthcare provider. Be sure to talk to your healthcare provider about Mounjaro and how to take it. Your healthcare provider is the best person to help you decide if Mounjaro is right for you. Mounjaro and its delivery device base are trademarks owned or licensed by [employer], its subsidiaries, or affiliates. VIVIEN MUELLER CBS OCTOBER2021 Access [employer] for additional drug information, tools, and databases. Copyright 3454-5208 [employer]. All rights reserved. Contributor Disclosures (For additional information see Tirzepatide: Drug information ) You must carefully read the Consumer Information Use and Disclaimer below in order to understand and correctly use this information. Brand Names: [place] Mounjaro Warning This drug has been shown to cause thyroid cancer in some animals. It is not known if this happens in humans. If thyroid cancer happens, it may be deadly if not found and treated early. Call your doctor right away if you have a neck mass, trouble breathing, trouble swallowing, or have hoarseness that will not go away. Do not use this drug if you have a health problem called Multiple Endocrine Neoplasia syndrome type2 (MEN 2), or if you or a family member have had thyroid cancer. Have your blood work checked and thyroid ultrasounds as you have been told by your doctor. What is this drug used for? It is used to lower blood sugar in patients with high blood sugar (diabetes). What do I need to tell my doctor BEFORE I take this drug? If you are allergic to this drug; any part of this drug; or any other drugs, foods, or substances. Tell your doctor about the allergy and what signs you had. If you have type 1 diabetes. Do not use this drug to treat type 1 diabetes. If you have ever had pancreatitis. If you have stomach or bowel problems. This is not a list of all drugs or health problems that interact with this drug. Tell your doctor and pharmacist about all of your drugs (prescription or OTC, natural products, vitamins) and health problems. You must check to make sure that it is safe for you to take this drug with all of your drugs and health problems. Do not start, stop, or change the dose of any drug withoutchecking with your doctor. What are some things I need to know or do while I take this drug? Tell all of your health care providers that you take this drug. This includes your doctors, nurses,pharmacists, and dentists. Wear disease medical alert ID (identification). Follow the diet and workout plan that your doctor told you about. Check your blood sugar as you have been told by your doctor. Do not drive if your blood sugar has been low. There is a greater chance of you having a crash. control pills may not work as well to prevent . If you take control pills, youmay need to switch to another type of hormone-based control like a vaginal ring if your doctor tells you to. If another type of hormone-based control is not an option, use some other kindof control also, like a condom. Do this for 4 weeks after starting this drug and for 4 weeks each time the dose is raised. This drug may prevent other drugs taken by mouth from getting into the body. If you take other drugs by mouth, you may need to take them at some other time than this drug. Talk with your doctor. It may be harder to control blood sugar during times of stress such as fever, infection, injury, orsurgery. A change in physical activity, exercise, or diet may also affect blood sugar. Talk with your doctor before you drink alcohol. Do not share with another person even if the needle has been changed. Sharing your tray or pen may pass infections from one person to another. This includes infections you may not know you have. If you cannot drink liquids by mouth or if you have upset stomach, throwing up, or diarrhea that does not go away; you need to avoid getting dehydrated. Contact your doctor to find out what to do. Dehydration may lead to new or worse kidney problems. A severe and sometimes deadly pancreas problem (pancreatitis) has happened with other drugs like this one. Tell your doctor if you are , plan on getting , or are breast- feeding. You will need to talk about the benefits and risks to you and the baby. What are some side effects that I need to call my doctor about right away? WARNING/CAUTION: Even though it may be rare, some people may have very bad and sometimes deadly side effects when taking a drug. Tell your doctor or get medical help right away if you have any of thefollowing signs or symptoms that may be related to a very bad side effect: Signs of an allergic reaction, like rash; hives; itching; red, swollen, blistered, or peeling skin with or without fever; wheezing; tightness in the chest or throat; trouble breathing, swallowing, ortalking; unusual hoarseness; or swelling of the mouth, face, lips, tongue, or throat. Signs of kidney problems like unable to pass urine, change in how much urine is passed, blood in the urine, or a big weight gain. Signs of gallbladder problems like pain in the upper right belly area, right shoulder area, or between the shoulder blades; yellow skin or eyes; fever with chills; bloating; or very upset stomach or throwing up. Signs of a pancreas problem (pancreatitis) like very bad stomach pain, very bad back pain, or very bad upset stomach or throwing up. Dizziness or passing out. A fast heartbeat. Change in eyesight. Low blood sugar can happen. The chance may be raised when this drug is used with other drugs for diabetes. Signs may be dizziness, headache, feeling sleepy or weak, shaking, fast heartbeat, confusion, hunger, or sweating. Call your doctor right away if you have any of these signs. Follow what you have been told to do for low blood sugar. This may include taking glucose tablets, liquid glucose, or some fruit juices. What are some other side effects of this drug? All drugs may cause side effects. However, many people have no side effects or only have minor sideeffects. Call your doctor or get medical help if any of these side effects or any other side effects bother you or do not go away: Constipation, diarrhea, stomach pain, upset stomach, throwing up, or feeling less hungry. Heartburn. These are not all of the side effects that may occur. If you have questions about side effects, call your doctor. Call your doctor for medical advice about side effects. You may report side effects to your national health agency. How is this drug best taken? Use this drug as ordered by your doctor. Read all information given to you. Follow all instructionsclosely. It is given as a shot into the fatty part of the skin on the top of the thigh, belly area, or upperarm. If you will be giving yourself the shot, your doctor or nurse will teach you how to give the shot. Keep taking this drug as you have been told by your doctor or other health care provider, even if you feel well. Take the same day each week. Move site where you give the shot each time. Take with or without food. Wash your hands before and after use. Do not use if the solution is leaking or has particles. This drug is colorless to a faint yellow. Do not use if the solution changes color. If you are also using insulin, you may inject this drug and the insulin in the same area of the body but not right next to each other. Do not mix this drug in the same syringe with insulin. Do not move this drug from the pen to a syringe. Each pen is for one use only. Throw away any part of the used pen after the dose is given. Throw away needles in a needle/sharp disposal box. Do not reuse needles or other items. When the box is full, follow all local rules for getting rid of it. Talk with a doctor or pharmacist if you have any questions. What do I do if I miss a dose? If it is within 4 days after the missed dose, take the missed dose and go back to your normal day. If it has been more than 4 days since the missed dose, skip the missed dose and go back to your normal day. Do not take 2 doses at the same time or extra doses. How do I store and/or throw out this drug? Store in a refrigerator. Do not freeze. Do not use if it has been frozen. If needed, each pen may be stored at room temperature for up to 21 days. If you store at room temperature, throw away any part not used after 21 days. Protect from heat. Store in the original container to protect from light. Keep all drugs in a safe place. Keep all drugs out of the reach of children and pets. Throw away unused or drugs. Do not flush down a toilet or pour down a drain unless you are told to do so. Check with your pharmacist if you have questions about the best way to throw out drugs. There may be drug take-back programs in your area. General drug facts If your symptoms or health problems do not get better or if they become worse, call your doctor. Do not share your drugs with others and do not take anyone else's drugs. Some drugs may have another patient information leaflet. If you have any questions about this drug,please talk with your doctor, nurse, pharmacist, or other health care provider. If you think there has been an overdose, call your poison control center or get medical care right away. Be ready to tell or show what was taken, how much, and when it happened. Last Reviewed [id number] Consumer Information Use and Disclaimer This generalized information is a limited summary of diagnosis, treatment, and/or medication information. It is not meant to be comprehensive and should be used as a tool to help the user understand and/or assess potential diagnostic and treatment options. It does NOT include all information about conditions, treatments, medications, side effects, or risks that may apply to a specific patient. Itis not intended to be medical advice or a substitute for the medical advice, diagnosis, or treatment of a health care provider based on the health care provider's examination and assessment of a patient's specific and unique circumstances. Patients must speak with a health care provider for complete information about their health, medical questions, and treatment options, including any risks or benefits regarding use of medications. This information does not endorse any treatments or medications as safe, effective, or approved for treating a specific patient. [employer] and its affiliatesdisclaim any warranty or liability relating to this information or the use thereof. The use of thisinformation is governed by the Terms of Use, available at https://www.[employer].com/en/know/slnmbhys-beunkuiekdqjr-bncfq. documented in this encounterCommunity [facility] History of Present illness Narrative* Celso Arauz APRN.SAMANTHA - 02/07/2022 9:00 AM EDT BMI Obesity Medicine Pharmacotherapy [facility] Visit February 07, 2022 This Team Access Model visit is a virtual encounter. It required patient- provider interaction for the medical decision making as documented below. Patient Summary: Viviane Teresa is 41 year old who [facility] [place] for follow-up evaluation of obesity and related complications. In previous visits we have outlined an individualized lifestyle intervention including a personalized nutrition recommendations and physical activity optimization. Currently on an anti-obesity medication below. Virtual encounter done together with the assistance of Zahraa Villarreal RDN Last Wt 02/07/22 : 86.2 kg (190 lb) 5% weight loss = 181 lbs, 10% weight loss = 171 lbs Interval History: PT specifies the following items as new or significant updates since the last appointment: No complaints Reports weight is stable since the last visit. Obesity Medications: Phentermine Started: 2021 Starting weight: 201 lb Side Effects no side effects Benefit: Reduction of appetite Diet: virtually counseled by RACHEL today Reports quality of diet as healthy. Current nutrition plan includes Bariatric Plate Currently f/b Obesity Medicine Diet barriers/challenges since beginning AOM not stated Diet changes made since beginning AOM: Controlling portions Mindful Eating strategies Meal Planning Since last assessment, patient has been maintaining activity with kickboxing classes, working with personal lines sales executive, and using at home gym and meal planning with mindful eating and bariatric diet strategies, along with use of Phentermine and Mounjaro, which should support weight loss efforts. Exercise: Change in physical activity: Decreased Kickboxing 1 x week Personal training 1 x week At home gym ?Sleep: Change in sleep: Not changed ??Stress: Increased Review of Systems and Social History reviewed in Epic I have confirmed and edited as necessary, the PFSH and ROS obtained by others. The physical systems reviewed reveal no pathological symptoms that are pertinent to this visit Physical Exam:(if done, performed via video enabled technology) NAD Results: reviewed labs with the patient. Impression: Viviane Teresa is a 41 year old year old with Body mass index is 30.67 kg/m . Obesity related complications as above, improving with weight loss Weight decreased Currently taking Phentermine, response well. Lifestyle improved Motivated. Interested in adding Mounjaro today. She denies family history of thyroid cancer, MEN2 or pancreatitis. Educated on increased risk for inflammation of the pancreas (pancreatitis), gallbladder problems (including gallstones), low blood sugar, acute kidney injury, diabetic retinopathy (damage to the eye's retina), increased heart rate and suicidal behavior or thinking. Prescription sent today and detailed instructions on how to use the pen provided in the patient instructions. Patient also referred to www.[employer] for injection training video and encouraged to reach out if in-person pen training is needed. Plan: -- continue current lifestyle -- Continue Phentermine 3/3. -- return to clinic/virtually in 2 months - add Mounjaro 2.5 mg for 4 weeks then increase to 5 mg weekly. Medical Decision Making: Problems: Low: Stable chronic illness Risk: Moderate: Drug management Medical Decision Making Level: 3 - Low Celso Arauz APRN.SAMANTHA This visit was performed virtually due to the COVID-19 epidemic as an effort to protect patients and minimize exposure. documented in this encounterCommunity [facility]08-[facility]22 History of Present illness Narrative* Lidia Lemus APRN.CNP - 01/08/2022 9:30 AM EDT Images from the original note were not included. BMI Obesity Medicine FollowUp Note [facility] Visit January 08, 2022 Virtual Visit (Audio/Visual) I have discussed the nature of this visit with the patient which will occur via [facility] (Phone, Virtual Visit) and she agrees to proceed with this interaction . Patient Summary: Viviane Teresa is 41 year old Female who presents virtually for follow-up evaluation of her obesity and related complications [facility] [place]. In our previous visits we have outlined an individualized lifestyle intervention including a personalized nutrition recommendations and physical activity optimization. JOSE L 12/06/2021 with Celso Arauz: Assessment / Plan 39 year old female with Class I obesity 3 years. s/p LAPAROSCOPIC GASTRIC RESTRICTIVE SURG W/ BYPASS & PARKER-EN-Y 150CM OR LESS, responding well. ASSESSMENT/PLAN: 1. Class 1 obesity with body mass index (BMI) of 30.0 to 30.9 in adult, unspecified obesity type, unspecified whether serious comorbidity present - ICD9: 278.00, V85.30, ICD10: E66.9, Z68.30 (primarydiagnosis). S/P gastric bypass - ICD9: V45.86, ICD10: Z98.84 Stable - Continue current medications and - Continue Semaglutide (Ozempic) - continue with RDN - labs WNL except calcium and PTH, may be related to secondary hyperparathyroidism from bariatric surgery. - Patient already treated with calcium citrate 400 mg TID - add phentermine 06/12 2. Kidney stones, calcium oxalate - ICD9: 592.0, ICD10: N20.0 - Appointment with urology in December, having KUB, May need lithotripsy - follow up with BMI nutrition as needed - patient cautioned on use of NSAIDS for kidney stone pain and risk for ulcer DISPOSITION: Return in 3 months to Post-op follow up/ individual office visit EDUCATION: Encouraged to continue with healthy lifestyle changes and incorporate cardiovascular andresistance training, Discussed weight loss expectations after bariatric and metabolic surgery, Advised PT to avoid NSAIDs, smoking tobacco given increased risk of marginal ulcers or Discussed importance of protein intake as per the RDN note REFERRALS: Pt is following with urology LABS: Today: none, labs drawn at OSH, copied and sent to medical records. Celso Arauz APRN.GREASE REFINING SUPERVISOR Weight Graph; (please see graph scanned in chart or EPIC synopsis below) Interval History: She specifies the following items as new or significant updates since the last appointment: Returns after 1 months Reports weight is decreased since the last visit. Obesity Medications: Bupropion XL 300 mg daily Prescribed by PCP for depression Semaglutide (Ozempic) 0.50 mg weekly. Start Date: 11/01/2021 Weight: 190 lbs Effects Reduced hunger S/E: constipation, managed well with Miralax Phentermine 37.5 mg full tablet. Start Date: 12/06/2021 Weight: 201 lbs Effects Reduced hunger and Reduction of appetite Reports appetite is controlled. Reports satiety is controlled. S/E: none Pt reports BP 110-120/70's Diet: - Eating less quanity. - Trying to get in the required protein. Regular diet, no shakes. Exercise: - Goes to gym 5 days per week - kick boxing - personal lines sales executive Sleep: - Doesn't sleep well. - HSAT + for mild RANDEE. She will call to schedule with sleep medicine however may decide to see someone locally. Stress: - Increased personal stress. We're working through it / Review of Systems: The physical systems reviewed reveal no pathological symptoms that are pertinent to this visit, Diabetes No, HTN: Yes, Cardiac: No and Pulmonary: No History reviewed in Epic ALLERGIES No Known Allergies Current Outpatient Medications Medication Sig aripiprazole (ABILIFY ORAL) Take 5 mg by mouth daily at bedtime. hydroCHLOROthiazide (HYDRODIURIL, ESIDRIX) 12.5 mg tablet Take 12.5 mg by mouth once daily. buPROPion XL (WELLBUTRIN XL) 300 mg 24 hr tablet Take 300 mg by mouth once daily. semaglutide (OZEMPIC) 0.25 mg or 0.5 mg(2 mg/1.5 mL) pen injector Inject 0.5 mg subcutaneously one time a week. mupirocin (BACTROBAN) 2 % ointment Apply to incisions twice daily FLUoxetine (PROZAC) 20 mg capsule Take 1 capsule by mouth once daily. (Patient taking differently: Take 40 mg by mouth once daily. ) buPROPion (WELLBUTRIN) 100 mg tablet Take 1 tablet by mouth three times daily. melatonin 1 mg tablet Take 1 tablet by mouth as needed for for insomnia. polyethylene glycol 3350 (MIRALAX) 17 gram/dose powder Take by mouth once daily. Calcium Citrate 250 mg calcium tab Take 2 tablets by mouth three times daily. 2 tablets by mouth three times daily vitamin D3-vitamin K2, MK4, 1,000-100 unit-mcg tab Take 1 capsule by mouth three times daily. Lactobac no.41/Bifidobact no.7 (PROBIOTIC-10 ORAL) diphenhydrAMINE (BENADRYL) 25 mg capsule cetirizine (ZYRTEC) 10 mg tablet Take 10 mg by mouth. multivitamin (MULTIPLE VITAMINS ORAL) Take by mouth. No current facility-administered medications for this visit. PAST MEDICAL HISTORY Diagnosis Date Anxiety with depression 04/14/2021 Hypertension Kidney stones, calcium oxalate Obstructive sleep apnea S/P gastric bypass PAST SURGICAL HISTORY Procedure Laterality Date SECTION HX 2008, 2010 COLONOSCOPY EGD 09/20/2020 GASTRIC BYPASS HX 07/2018 HYSTERECTOMY 2013 KNEE SURGERY HX Right x 2 - last one ~1999 KNEE SURGERY HX Left high school NOSE SURGERY HX x3 - in high school WRIST SURGERY HX Right High school Social Connections: Not on file Family History Problem Relation Age of Onset Heart Mother heart valve Hypertension Mother No Known Problems Father Physical Exam: Weight: 87.1 kg (192 lb) Patient reported weight. VIDEO EXAM: (if done, performed via video enabled technology) General appearance: NAD Mental status: awake and alert Pulm: not visibly SOB Neuro: speech fluent Results: reviewed labs with the patient. Impression: Viviane Teresa is a 41 year old year old female with Class I obesity and the above obesity relatedcomplications. s/p LAPAROSCOPIC GASTRIC RESTRICTIVE SURG W/ BYPASS & PARKER-EN-Y 150CM OR LESS, Body mass index is 30.99 kg/m . Currently taking Bupropion, Phentermine and Semaglutide (Ozempic) ., responding well. Lost 9 lbs since JOSE L. Lifestyle improved. Mild RANDEE per HSAT. She will schedule with sleep medicine to discuss treatment options. Motivated. Plan: -- continue current lifestyle -- Continue Bupropion (managed by PCP), Phentermine and Semaglutide (Ozempic) . -- Provided phentermine script 2/3. -- Est with sleep medicine for management of mild RNADEE. -- return to clinic/virtually in 4-5 week. I spent a total of 15 minutes on the date of the service which included preparing to see the patient, [id number] patient care, completing clinical documentation, performing a medically appropriate examination, counseling and educating the patient/family/caregiver and ordering medications, tests, or procedures. Lidia Lemus APRN.GREASE REFINING SUPERVISOR documented in this encounterCommunity [facility] Hospital07-08-2022 Hospital Discharge instructions Patient Education 12/15/2021 08:28:43 Kidney Stones, Bmaf-vy-Qtyi Kidney Stones Kidney stones are rock-like masses that form inside of the kidneys. Kidneys are organs that make pee (urine). A kidney stone may move into other parts of the urinary tract, including: The tubes that connect the kidneys to the bladder (ureters). The bladder. The tube that carries urine out of the body (urethra). Kidney stones can cause very bad pain and can block the flow of pee. The stone usually leaves your body (passes) through your pee. You may need to have a doctor take out the stone. What are the causes? Kidney stones may be caused by: A condition in which certain glands make too much parathyroid hormone (primary hyperparathyroidism). A buildup of a type of crystals in the bladder made of a chemical called uric acid. The body makes uric acid when you eat certain foods. Narrowing (stricture) of one or both of the ureters. A kidney blockage that you were born with. Past surgery on the kidney or the ureters, such as gastric bypass surgery. What increases the risk? You are more likely to develop this condition if: You have had a kidney stone in the past. You have a family history of kidney stones. You do not drink enough water. You eat a diet that is high in protein, salt (sodium), or sugar. You are overweight or very overweight (obese). What are the signs or symptoms? Symptoms of a kidney stone may include: Pain in the side of the belly, right below the ribs (flank pain). Pain usually spreads (radiates) to the groin. Needing to pee often or right away (urgently). Pain when going pee (urinating). Blood in your pee (hematuria). Feeling like you may vomit (nauseous). Vomiting. Fever and chills. How is this treated? Treatment depends on the size, location, and makeup of the kidney stones. The stones will often pass out of the body through peeing. You may need to: Drink more fluid to help pass the stone. In some cases, you may be given fluids through an IV tube put into one of your veins at the hospital. Take medicine for pain. Make changes in your diet to help keep kidney stones from coming back. Sometimes, medical procedures are needed to remove a kidney stone. This may involve: A procedure to break up kidney stones using a beam of light (laser) or shock waves. Surgery to remove the kidney stones. Follow these instructions at home: Medicines Take ncid-pjt-xzqzefh and prescription medicines only as told by your doctor. Ask your doctor if the medicine prescribed to you requires you to avoid driving or using heavy machinery. Eating and drinking Drink enough fluid to keep your pee pale yellow. You may be told to drink at least 8 10 glasses of water each day. This will help you pass the stone. If told by your doctor, change your diet. This may include: ?Limiting how much salt you eat. ?Eating more fruits and vegetables. ?Limiting how much meat, poultry, fish, and eggs you eat. Follow instructions from your doctor about eating or drinking restrictions. General instructions Collect pee samples as told by your doctor. You may need to collect a pee sample: ?24 hours after a stone comes out. ?8 12 weeks after a stone comes out, and every 6 12 months after that. Strain your pee every time you pee (urinate), for as long as told. Use the strainer that your doctor recommends. Do not throw out the stone. Keep it so that it can be tested by your doctor. Keep all follow-up visits as told by your doctor. This is important. You may need follow-up tests. How is this prevented? To prevent another kidney stone: Drink enough fluid to keep your pee pale yellow. This is the best way to prevent kidney stones. Eat healthy foods. Avoid certain foods as told by your doctor. You may be told to eat less protein. Stay at a healthy weight. Where to find more information National Kidney Foundation (NKF): www.kidney.org [facility] (UCF): www.urologyhealth.org Contact a doctor if: You have pain that gets worse or does not get better with medicine. Get help right away if: You have a fever or chills. You get very bad pain. You get new pain in your belly (abdomen). You pass out (faint). You cannot pee. Summary Kidney stones are rock-like masses that form inside of the kidneys. Kidney stones can cause very bad pain and can block the flow of pee. The stones will often pass out of the body through peeing. Drink enough fluid to keep your pee pale yellow. This information is not intended to replace advice given to you by your health care provider. Make sure you discuss any questions you have with your health care provider. Document Released: 11/12/2008 Document Revised: 10/13/2019 Document Reviewed: 10/13/2019 [employer] Patient Education 2020 [place]. Follow Up Care 06/16/2021 09:12:13 With:SUNITHA MARTE, Francisco Gonzalez, URL Address: [address] [place] [phone]- When:Within 8 Month(s) Comments:6-8 months w/ ASTRID [facility] 06-29-2022 Instructions* Patient Instructions* Celso Arauz APRN.[facility] - 12/06/2021 10:10 AM EDT Images from the original note were not included. Nutrition Goal: add fiber, see BMI nutrition when able Physical Activity Goal:continue personal lines sales executive, kickboxing Behavior Goal: read about sleep and weight Sleep Goal: 7-8 hours, ENT/Sleep medicine follow up, Nose vents Pharmacology: add phentermine, continue Ozempic We have 2 hand endband cutter here with backgrounds in renal disease: LOKI Muñoz RD ENT Nose Vents Disrupted Sleep Linked to Weight Gain - YouTube How To Improve Your Sleep To Impact Your Weight Loss: [email or web address] Weight Loss and Sleep Updated March 18, 2020 Written by Bright Chan Medically Reviewed by Lupe Hernandez In This Article The Connection Between Sleep and Weight Sleep and Obesity Sleep During Weight Loss Maintaining a Healthy Relationship With Your Body Losing weight is challenging, and keeping weight off can be just as difficult. Although the medicalcommunity is still untangling the complicated relationship between sleep and body weight, several potential links have emerged that highlight the potential weight loss benefits of getting a good night s rest and the negative health impacts of sleep deprivation. The Connection Between Sleep and Weight Over the past several decades, the amount of time that Americans spend sleeping has steadily decreased1, as has the self-reported quality of that sleep. For much of the same time period, the average body mass index (BMI) of Americans increased2, reflecting a trend toward higher body weights and elevated rates of obesity. In response to these trends, many researchers began to hypothesize about potential connections between weight and sleep. Numerous studies have suggested that restricted sleep and poor sleep quality may lead to metabolic disorders, weight gain, and an increased risk of obesity and other chronic health conditions. While there is continuing debate within the medical community about the exact nature of this relationship, the existing research points to a positive correlation between good sleep and healthy body weight. There remains much to be discovered about the intricate details of how sleep and weight are connected. Several hypotheses offer paths for additional research with the hope that increasing our understanding of the relationship between weight and sleep will lead to reduced obesity and better weight-loss methods. Can Lack of Sleep Increase Appetite? One common hypothesis about the connection between weight and sleep involves how sleep affects appetite. While we often think of appetite as simply a matter of stomach grumbling, it s actually controlled by neurotransmitters, which are chemical messengers that allow neurons (nerve cells) to communicate with one another. The neurotransmitters ghrelin and leptin are thought to be central to appetite. Ghrelin promotes hunger, and leptin contributes to feeling full. The body naturally increases and decreases the levels of these neurotransmitters throughout the day, signaling the need to consume calories3. A lack of sleep may affect the body s regulation of these neurotransmitters. In one study, men who got 4 hours of sleep had increased ghrelin and decreased leptin compared to those who got 10 hours of sleep. This dysregulation of ghrelin and leptin may lead to increased appetite and diminished feelings of fullness in people who are sleep deprived. In addition, several studies have also indicated that sleep deprivation affects food preferences. Sleep-deprived individuals tend to choose foods that are high in calories and carbohydrates4. Other hypotheses regarding the connection between sleep and increased appetite involve the body s endocannabinoid system5 and orexin6, a neurotransmitter targeted by some sleep aids. Many researchers believe that the connection between sleep and dysregulation of neurotransmitters is complicated and additional studies are needed to further understand the neurobiological relationship. Does Sleep Increase Metabolism? Metabolism7 is a chemical process in which the body converts what we eat and drink into energy needed to survive. All of our collective activities, from breathing to exercising and everything in between, is part of metabolism. While activities like exercise can temporarily increase metabolism, sleep cannot8. Metabolism actually slows about 15% during sleep, reaching its lowest level in the morning 9. In fact, many studies have shown that sleep deprivation (whether due to self- induction, insomnia, untreated sleep apnea, or other sleep disorders) commonly leads to metabolic krbyhxoppindt99. Poor sleep is associated with increased oxidative stress, glucose (blood sugar) intolerance (a precursor todiabetes), and insulin resistance. Extra time spent awake may increase the opportunities to eat11, and sleeping less may disrupt circadian rhythms, leading to weight gain12. How is Sleep Related to Physical Activity? Losing sleep can result in having less energy for exercise and physical activity. Feeling tired canalso make sports and exercising less safe, especially activities like weightlifting and or those requiring balance. While researchers are still working to understand this rzhuudhkxr00, it s well known that exercise is essential to maintaining weight loss and overall health. Getting regular exercise can improve sleep quality, especially if that exercise involves natural light. While even taking a short walk during the day may help improve sleep, more activity can have a more dramatic impact. Engaging in at least 150 minutes of moderate-intensity or 75 minutes of high-intensity exercise per week can improve daytime concentration and decrease daytime kkfdqsktra04. Sleep and Obesity In children and adolescents, the link between not getting enough sleep and an increased risk of obesity is well-established, although the reason for this link is still being debated. Insufficient sleep in children can lead to metabolic irregularities as discussed earlier, skipping breakfast in the mornings, and increased intake of sweet, salty, fatty, and starchy foods15. In adults, the research is less clear. While a large analysis of past studies suggests that people getting less than 6 hours of sleep at night are more likely to be diagnosed as obese16, it s challenging for these studies to determine cause and effect. Obesity itself can increase the risk of developing conditions that interfere with sleep, like sleep apnea and depression. It s not clear if getting less sleep is the cause of obesity in these studies, if obesity is causing the participants to getless sleep, or perhaps a mix of both. Even though more studies are needed to understand this connection, experts encourage improving sleep quality when treating obesity in adults. Sleep During Weight Loss Getting adequate, quality sleep is an important part of a healthy weight loss plan. Most importantly, research has shown that losing sleep while dieting can reduce the amount of weight lost17 and encourage wwlmisruxb37. Tips for Quality Sleep During Weight Loss There are many ways to improve sleep. Here are a few research-based tips for sleeping better when you re trying to lose weight: Keep a regular sleep schedule: Big swings in your sleep schedule or trying to catch up on sleep after a week of late nights can cause changes in metabolism and reduce insulin vbaectbdtuu16, making iteasier for blood sugar to be elevated. Sleep in a dark room: Exposure to artificial light while sleeping, such as a TV or bedside lamp, isassociated with an increased risk of weight gain and hhqavcd09. Don t eat right before bed: Eating late may reduce the success of weight loss ymiekxtz07 Reduce Stress: Chronic stress may lead to poor sleep and weight gain in several ways, including eating to cope with negative jgrihxhu14 Be an Early Bird: People with late bedtimes may consume more calories and be at a higher risk for weight gain23. Early birds may be more likely to maintain weight loss when compared to night owls24. Maintaining a Healthy Relationship With Your Body Deciding if you should attempt to change your body weight is a personal decision best made with theguidance of your doctor. Don t take all the health and weight loss information you read aolson29 atface value. Weight loss isn t appropriate for everyone and doesn t always mean better health. Remember that health is a lifelong journey that includes not only healthy habits but also having a healthy relationship with your body. If you re considering weight loss, the National Institutes of Health offers a helpful resource for choosing a safe weight loss jpmqfkj53iIdndfse Source National [place] of Diabetes and Digestive and Kidney DiseasesNIDDK research creates knowledge about and treatmentsfor diseases that are among the most chronic, costly, and consequential for patients, their families, and the Nation. niddk.nih.gov . https://www.sleepfoundation.org/physical-health/iuirbe-zrux-jng-sleep PHENTERMINE -Provider follow up visit- Please call [phone] OR [phone] to schedule necessary 4 and 8 week follow up appointments. -- Please start phentermine low dose (1/2 tablet) in the morning everyday as discussed. We can adjust the dose if needed, that is if you are feeling some side effects you can either stop all togetheror decrease to 1/4 tablet. But we can review its effect when you return in 1 month. -- Please monitor your blood pressure (either purchase BP cuff, or go to pharmacy to check your BP at a local pharmacy). Please avoid any stimulants (in the form of caffeinated beverages like coffee,tea, sports drinks) and caution with decongestants. -- Because most studies on this medication in the 1950s and 1960s were only 3 months long, this medication is not approved for treatment of obesity beyond three months. However, if it is effective inhelping you lose weight, I will likely recommend that we continue this medication, under the guidance of [place] state law (see below). -- If at any point you become please stop the medication. THIS IS A SUMMARY OF OUR DISCUSSION ABOUT THIS MEDICATION. PLEASE READ IT IS IMPORTANT FOR YOUR WEIGHT LOSS PLAN Per [place] state rules, only one month supply of phentermine is provided at a time. You, the patient are responsible for making an appointment to see a provider within 4 weeks (no later than 5 weeks) in order to get a refill of this medication. It is imperative that you get this (and future) phentermine prescriptions within 7 days as pharmacists will NOT refill prescriptions outside this 7 day window per State law. Phentermine can only be prescribed for a 3 month interval. If there is any INTERRUPTION within THISwindow, phentermine will no longer be prescribed for 6 months. After 3 months of therapy there is a6 month break from the medication. You are aware of the following statements per the [facility] pharmacy board rules. 1. Timely refills are required 2. Monthly (Every 4 weeks) khih-qy-ubly office visits are required 3. ALL prescriptions need to be filled within 7 days of the written prescription 4. Refills need to be done EVEN IF there is medication still available 5. IF you DO NOT REFILL the medication within 4 weeks - YOU MAY NOT CONTINUE THE MEDICATION FOR 6 MONTHS 6. IF YOU MISS AN APPOINTMENT OR MISS A REFILL, please continue working on a healthy lifestyle and keep your appointment with your provider. At that visit, we can then discuss other medication options. ? Phentermine (fen ter meen) What are the common names? Adipex-P, Ionamin Why is this medication prescribed? Phentermine was approved by the FDA in 1958 for short term weight loss. It works by decreasing appetite. Phentermine is absorbed by the body and travels to the appetite center of the brain. It works by helping you feel less hungry, less driven to eat, more satisfied with less food. I ve heard about fen-phen. Will phentermine affect my heart? The two drug combination fenfluramine/phentermine, usually called fen-phen, became popular in the early as a diet pill. However, it was withdrawn by the FDA in late 1996 after studies which showed that fenfluramine can cause fatal pulmonary hypertension and heart valve problems. Phentermine is not a combination medication and does not contain the compound fenfluramine. What special precautions should I follow? Before having phentermine prescribed, tell your doctor and pharmacist: If you have allergies to any component of phentermine If you are , plan to become , are breast-feeding, or if you become while taking phentermine What are the absolute contraindications? Stroke or Transient Ischemic Attacks Cardiac arrhythmias or Atrial fibrillation Coronary artery disease Seizure Disorder Uncontrolled blood pressure Angina Congestive Heart Failure Valvular Heart Disease or primary pulmonary hypertension Drug interactions. Use of monamine oxidase inhibitors (MAOI s) What are the side effects of phentermine? Immediately discontinue the medicine and seek medical help if you have severe symptoms such as chest pain, shortness of breath, feeling faint, ability to think clearly, eye pain or other visual symptoms: Palpitations (strong or rapid heartbeat) Difficulty sleeping or falling asleep Elevated blood pressure Dry mouth Anxiety or agitation Getting a stimulant/or hyper effect or jitteriness-(Usually goes away after a few days or weeks) Glaucoma In case of emergency/overdose In case of overdose, call your local poison control center at or call local emergency services at [phone]. What other information should I know? Keep all appointments with your doctor and the laboratory. Do not let anyone else take your medication. Phentermine is a controlled substance. It is FDA approved for up to 3 months. Prescriptions may be refilled only a limited number of times. Keep a written list of all of your prescription and nonprescription (uhow-mhw-bsdymwc) medicines, in addition to vitamins, minerals, or other dietary supplements. If you are taking the extended-release (long-acting) tablets, do not split, chew, or crush them tablet. There are some tablets that can be crushed and mixed with food Alcohol can make the side effects of phentermine worse How should I monitor while on this medication? Please check your blood pressure (BP) and resting pulse weekly (twice a week in the first 2 weeks).If the BP is over 140/90 (either one), or if the resting pulse is over 96 per minute (count for 10 seconds and multiply by 6), then stop the medication and call your doctor. Continue to improve your dietary and physical activity habits as the combination works best while on this medication. Start out by taking the medication in the morning at least 30 minutes prior to meals. If the effectseems to wear off by dinner time, try taking it later in the morning, but taking too late may result in trouble falling asleep. Be sure to eat regular meals. Less hunger does not make it appropriate to skip meals. Monitor your caffeine intake and use of decongestants as they may worsen the effects of phentermine Make sure to have an eye exam, including the pressure in your eyes (intra-ocular pressure), once a year. What should I do if I forget a dose? Skip the missed dose and continue your regular dosing schedule the next day. Do not take a double dose to make up for a missed one. Sources [facility] Consumer Medication Info: http://www.ncbi.nlm.nih.gov/pubmedhealth/QWA6388485/ AMA patient handouts: http://www.amaassn.org/ama1/pub/upload/mm/433/phrxsurgery.pdf Drugs.com: http://www.drugs.com/pro/phentermine.html documented in this encounterCommunity [facility] History of Present illness Narrative* Celso Arauz APRN.CNP - 12/06/2021 10:09 AM EDT BMI OM PostOp Clinic Note- Follow up December 06, 2021 Index Surgery Date of Surgery: 08/05/2018 Surgeon: Heath Echols MD Surgical Procedure: LAPAROSCOPIC GASTRIC RESTRICTIVE SURG W/ BYPASS & PARKER-EN-Y 150CM OR LESS Pre-surgical weight: 139.7 kg (308 lb) Override Index Surgery Information? No Other Bariatric Surgeries None Visit: 3 years Today's Visit: Wt 88.5 kg (195 lb) BMI 33.26 kg/m2 BMI 32.57 kg/(m^2) Last Visit: Wt: 87.1 kg (192 lb) BMI: 32.18 kg/(m^2) Total weight loss: 51.3 kg (113 lb) Gatzke weight: 67.5 kg (148 lb 13.8 oz) Excess weight: 72.2 kg (159 lb 2.2 oz) % of excess body weight lost: 51.3 kg (113 lb) (71.01% of excess weight loss) Gonzalo 178 lbs. COMPLICATIONS SINCE LAST VISIT?: Other: Kidney stones Last visit with Fide Salas CNP 08/30/20: 39 year old female with Class I obesity 2 years. s/p LAPAROSCOPIC GASTRIC RESTRICTIVE SURG W/ BYPASS & PARKER-EN-Y 150CM OR LESS, responding well. 1. 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 Loose skin - ICD9: 701.9, ICD10: L98.7, Yeast infection of the skin - ICD9: 112.3, ICD10: B37.2 - CONSULT TO PLASTIC SURGERY - keep area clean and dry 3. Kidney stones, calcium oxalate - ICD9: 592.0, ICD10: N20.0 - Seeing urology today - follow up with BMI nutrition as needed - patient cautioned on use of NSAIDS for kidney stone pain and risk for ulcer - continue pepcid - pantoprazole DR (PROTONIX) 40 mg tablet once per day INTERVAL HISTORY says she snores sometimes, was started on Elavil for poor sleep. Falls asleep at 8:30 pm wakes at 4 am. Denies food intolerances, only has a hard time if her protein is dry. < 50 g Oxilate per day for stone prevention. Increased water intake, > 110 oz per day. Still working out with personal fitness trainer. Had her excess skin surgery, abdominoplasty and arms done. No longer has any problems with fungal infections. DIET INTAKE: tolerates Phase V diet. DAILY SUPPLEMENTS: Yes Calcium: Calcium citrate from celebrate 500 mg TID Multivitamin & Minerals: 2 per day Iron Supplement: 45-60 mg in multivitamin Vitamin B12: included in multivitamin Vitamin D3: 2000 IU BID Other: Biotin 5000 mcg daily EXERCISE: increased, working with personal fitness trainer and kickboxing SLEEP: RANDEE Yes , CPAP No On elavil, possibly weight promoting- cutting down, taking only 1 tab now Are you attending any Support Groups? No attendance Current Outpatient Medications Medication Sig aripiprazole (ABILIFY ORAL) Take 5 mg by mouth daily at bedtime. hydroCHLOROthiazide (HYDRODIURIL, ESIDRIX) 12.5 mg tablet Take 12.5 mg by mouth once daily. buPROPion XL (WELLBUTRIN XL) 300 mg 24 hr tablet Take 300 mg by mouth once daily. semaglutide (OZEMPIC) 0.25 mg or 0.5 mg(2 mg/1.5 mL) pen injector Inject 0.25 mg subcutaneously onetime a week for 28 days, THEN 0.5 mg one time a week for 14 days. amitriptyline (ELAVIL) 10 mg tablet Take 30 mg by mouth daily at bedtime. melatonin 1 mg tablet Take 1 tablet by mouth as needed for for insomnia. polyethylene glycol 3350 (MIRALAX) 17 gram/dose powder Take by mouth once daily. Calcium Citrate 250 mg calcium tab Take 2 tablets by mouth three times daily. 2 tablets by mouth three times daily vitamin D3-vitamin K2, MK4, 1,000-100 unit-mcg tab Take 1 capsule by mouth three times daily. Lactobac no.41/Bifidobact no.7 (PROBIOTIC-10 ORAL) cetirizine (ZYRTEC) 10 mg tablet Take 10 mg by mouth. multivitamin (MULTIPLE VITAMINS ORAL) Take by mouth. mupirocin (BACTROBAN) 2 % ointment Apply to incisions twice daily FLUoxetine (PROZAC) 20 mg capsule Take 1 capsule by mouth once daily. (Patient taking differently: Take 40 mg by mouth once daily. ) buPROPion (WELLBUTRIN) 100 mg tablet Take 1 tablet by mouth three times daily. diphenhydrAMINE (BENADRYL) 25 mg capsule No current facility-administered medications for this visit. OSH lab review: Normal CBC, CMP, vitamins: B12, B1, D Folate, increased PTH and decrease calcium. REVIEW OF SYSTEMS: Denies paresthesias, gait abnormality, fatigue, weakness, lower extremity edema,Has excess skin and intertrigo under pannus (treated for fungal infection in June), nausea due to kidney stones and constipation with pain meds. OBESITY MEDICINE COMORBIDITIES: N/A PHYSICAL EXAM: BP 119/79 Pulse 72 Ht 167.6 cm (5' 6 ) Wt 91.5 kg (201 lb 12.8 oz) BMI 32.57 kg/m Physical exam: VIDEO EXAM: (if done, performed via video enabled technology) NAD, physical assessment not performed. Assessment / Plan 39 year old female with Class I obesity 3 years. s/p LAPAROSCOPIC GASTRIC RESTRICTIVE SURG W/ BYPASS & PARKER-EN-Y 150CM OR LESS, responding well. ASSESSMENT/PLAN: 1. Class 1 obesity with body mass index (BMI) of 30.0 to 30.9 in adult, unspecified obesity type, unspecified whether serious comorbidity present - ICD9: 278.00, V85.30, ICD10: E66.9, Z68.30 (primarydiagnosis). S/P gastric bypass - ICD9: V45.86, ICD10: Z98.84 Stable - Continue current medications and - Continue Semaglutide (Ozempic) - continue with RDN - labs WNL except calcium and PTH, may be related to secondary hyperparathyroidism from bariatric surgery. - Patient already treated with calcium citrate 400 mg TID - add phentermine / 2. Kidney stones, calcium oxalate - ICD9: 592.0, ICD10: N20.0 - Appointment with urology in December, having KUB, May need lithotripsy - follow up with BMI nutrition as needed - patient cautioned on use of NSAIDS for kidney stone pain and risk for ulcer DISPOSITION: Return in 3 months to Post-op follow up/ individual office visit EDUCATION: Encouraged to continue with healthy lifestyle changes and incorporate cardiovascular andresistance training, Discussed weight loss expectations after bariatric and metabolic surgery, Advised PT to avoid NSAIDs, smoking tobacco given increased risk of marginal ulcers or Discussed importance of protein intake as per the RDN note REFERRALS: Pt is following with urology LABS: Today: none, labs drawn at OSH, copied and sent to medical records. Celso Arauz APRN.SAMANTHA I spent a total of 29 minutes on the date of the service which included preparing to see the patient, [id number] patient care, completing clinical documentation, obtaining and/or reviewing separately obtained history, performing a medically appropriate examination, counseling and educating the pat ient/family/caregiver and ordering medications, tests, or procedures. documented in this encounterCommunity [facility]05-[facility]22 Instructions* Patient Instructions* Celso Arauz APRN.CNP - 11/01/2021 7:19 AM EDT Nhung Teresa Here is the link we discussed for medications that cause weight gain and possible alternatives. https://www.obesityaction.org/wp-content/uploads/prescription_medications.pdf Ozempic Link to savings card for $25/month (not eligible if Medicare or Medicaid, commercial insurances only) https://www.Taggify/ozempic/savings-card.html Link to medication guide: https://www.WeStudy.In/ozempic.pdf Ozempic website: https://www.Splendia/ How to use the pen: https://www.comScore.TargAnox/diabetes/patient-support/product-education/library/o kqgmij-gkf-oysnuzgauaxw-for-use.html Link to extra needle tips if needed: https://www.EmergenSee/dp/E78ION9BDY?ref_=cm_sw_r_cp_ud_dp_YRMC8T2FY11B9SDHCZ3H What Is Ozempic? Ozempic is a brand-name prescription drug that contains semaglutide. It belongs to the drug class glucagon-like peptide-1 (GLP-1) agonists. Ozempic is available as a liquid solution self-injectable medication. It is a pre-filled, disposable, single-use injection pen. Can Ozempic Be Used for Weight Loss? While Ozempic is not a weight loss drug, Ozempic s ingredient semaglutide has recently been approved for weight loss by the FDA. This new branding of semaglutide has been named Gio. The medicationwill be delivered as a once- weekly shot, in combination with diet and exercise. How Does Ozempic for Weight Loss Work? Ozempic is in a drug class called GLP-1 agonists that are used to control blood sugar, and can be taken to assist in weight loss. This drug works by - Slowing down how fast your stomach empties food - Blocking hormones that cause the liver to release sugar - Together, these combined actions cause the feeling of hunger to decrease, which leads to eating less, and finally, weight loss. How Long Does It Take for Ozempic to Work for Weight Loss? Results vary from person to person with Ozempic. Some people may have a quick initial weight drop; for others, it may take more time. Ozempic has been shown to help people lose weight in a safe, long-term, and healthy way. A [facility] doctor will help you with dosages of Ozempic for weight loss andmight recommend slowly increasing dosage over time to maximize weight loss. The speed at which you lose weight is largely influenced by the amount of lifestyle changes you areable to make: there is no magic weight loss drug on the market. It s important to remember that weight loss takes time, and you ll have the best results if you use Ozempic in combination with exercise and a healthy diet. Ozempic for Weight Loss Dosing Ozempic dosage for weight loss will start at the lowest dosage and potentially gradually increase, per your doctor s recommendation. It is paramount to use Ozempic precisely as prescribed by your doctor. Your doctor will instruct you on how to use the self-injected pen, and make sure you are fully prepared before you start taking this medication. Ozempic for Weight Loss Prescription Ozempic is generally available through prescription for adults with type 2 diabetes (for which it is FDA-approved), so you will need to talk to a doctor. If you do not have type 2 diabetes though, your doctor may recommend what is known as an off label prescription if your blood glucose is abnormal, or if you have prediabetes or metabolic syndrome, to help with weight loss. This is because the weight-loss benefits of Ozempic have been recognized, and while Ozempic is not specifically for weightloss, you may lose some weight while taking it https://[employer].TargAnox/uozoicr-efcxcn-femp/ Introduction Ozempic (semaglutide) may be a treatment option for you.Ozempic is used to: help lower blood sugar levels in adults with type 2 diabetes (when used with diet and exercise) help reduce the risk for certain cardiovascular problems (related to the heart or blood vessels) inadults with type 2 diabetes and cardiovascular disease Ozempic is given by subcutaneous injection (an injection under your skin). You ll use it once a week as part of your diabetes treatment plan to help meet your daily and long-term blood sugar goals. For more details on Ozempic, see this in-depth article. Ozempic may cause mild or serious side effects in some people. Keep reading to learn more. Note: Ozempic isn t used to treat type 1 diabetes or diabetic ketoacidosis, a serious diabetes complication. Talk with your doctor to learn more. What are the more common side effects of Ozempic? Like all drugs, Ozempic may cause side effects in some people. The more commonly reported side effects of Ozempic include: abdominal (belly) pain constipation diarrhea nausea or vomiting Ozempic may cause other side effects, too. Talk with your doctor about your specific risk for side effects from this drug. Learn more about Ozempic s side effects in the next sections. What are the mild side effects of Ozempic? Ozempic can cause mild side effects in some people. These may include: change in the way things taste abdominal (belly) pain burping* constipation or diarrhea dizziness headache flatulence (gas)* fatigue (lack of energy) indigestion (upset stomach) or acid reflux injection-site reactions, such as skin redness or discomfort nausea or vomiting minor increase in heart rate * For more information on this side effect, see the Side effects explained section below. In most cases, these side effects should be temporary. Some may be easily managed, too. But if you have any symptoms that are ongoing or that bother you, talk with your doctor or pharmacist. And don t stop using Ozempic unless your doctor recommends it. Ozempic may cause other mild side effects, too. To learn more, see the Ozempic Medication Guide. Note: After the Food and Drug Administration (FDA) approves a drug, it tracks and reviews side effects of the medication. If you d like to notify the FDA about a side effect you ve had with Ozempic, visit [facility]. What are the serious side effects of Ozempic? In rare cases, Ozempic may cause serious side effects. Before starting treatment, talk with your doctor about your risk for serious side effects from this drug. Serious side effects of Ozempic can include: diabetic retinopathy (damaged blood vessels in the eye) gallstones kidney problems pancreatitis* (swelling of the pancreas) increased risk of thyroid cancer* allergic reaction* hypoglycemia* (low blood sugar) * To learn more about this side effect, see the Side effects explained section below. Ozempic has a boxed warning for an increased risk of thyroid cancer. This is the most serious warning from the Food and Drug Administration (FDA). To learn more, see the Side effects explained section below. FAQs about Ozempic s side effects Get answers to some frequently asked questions about Ozempic s side effects. Can Ozempic cause weight loss? Yes, Ozempic can cause weight loss in some people. Although the drug isn t approved for weight loss, some people using Ozempic in studies lost weight. In these studies, Ozempic was either used alone or with other treatments for type 2 diabetes. Another diabetes drug, Saxenda (liraglutide), is approved for weight loss in people with type 2 diabetes. Saxenda is in the same drug class as Ozempic. (A drug class is a group of medications that work in a similar way.) Saxenda can t be used with Ozempic. If you re interested in learning more about Saxenda or other weight-management treatments, talk with your doctor. Are there foods to avoid while taking Ozempic? No, you don t have to avoid any specific foods during your Ozempic treatment. Also, the drug can betaken with or without food. However, Ozempic is used to improve blood sugar levels in adults with type 2 diabetes, and it s used along with diet and exercise. To reach your blood sugar goals while using Ozempic, you should follow the nutrition guidelines that your doctor recommends. If you have changes to your diet, activity level, or weight, your diabetes treatment plan may need to be adjusted. Talk with your doctor if you have any of these changes. How long do Ozempic side effects last? In general, mild side effects of Ozempic should be temporary or manageable while you re using the drug. However, after stopping Ozempic, it could take your body about 5 weeks after your last dose to fully clear the drug from your system. So you could have side effects during this period. And you could experience some serious side effects, such as worsening diabetic retinopathy, even after Ozempic has been fully cleared from your system. If you have questions or concerns about how long side effects from Ozempic could last, talk with your doctor. Does Ozempic cause hair loss? No, Ozempic shouldn t cause hair loss. Hair loss wasn t seen in studies of Ozempic. However, hair loss has been linked with both type 1 and type 2 diabetes. Diabetes-related hair lossisn t fully understood, but it may be caused by various factors. These may include: damaged hair follicles from long periods of high blood sugar or poor circulation stress from managing a chronic (long-term) condition having hypothyroidism (low thyroid hormone levels) along with diabetes Also, many people with diabetes take medications to treat other chronic conditions such as cardiovascular disease (CVD). In rare cases, certain drugs used to treat CVD, such as statins or angiotensin-converting enzyme (CESAR) inhibitors, may cause hair loss. If you re experiencing hair loss, see your doctor right away. If it s related to poor blood sugar control, they may change your diabetes treatment plan. If it s not, your doctor will check for other causes and discuss treatment options with you. Side effects explained Learn more about some of the side effects Ozempic may cause. Thyroid cancer risk Ozempic has a boxed warning for the risk of thyroid cancer. Ozempic has caused thyroid cancer in animals. It s unclear if this drug also increases thyroid cancer risk in humans. However, to lower the possible risk of thyroid cancer, don t use Ozempic if: you have a rare genetic condition called multiple endocrine neoplasia type 2 you or a family member has had medullary thyroid cancer What might help While using Ozempic, tell your doctor right away if you have symptoms of thyroid cancer, such as: a lump or pain in your neck trouble swallowing shortness of breath or wheezing hoarse voice that doesn t get better If you re diagnosed with thyroid cancer, your doctor will stop your Ozempic and adjust your diabetes treatment plan. Gas and burping Flatulence (gas) and burping can occur with Ozempic, but they aren t the most common digestive system side effects. Some more common digestive system side effects include constipation, diarrhea, nausea, and vomiting. Burping is also a symptom of acid reflux or indigestion (upset stomach). These are both digestive system side effects that can occur with Ozempic, too. What might help In most cases, gas and burping are considered mild side effects. But if they bother you or don t goaway during your Ozempic treatment, talk with your doctor. They may suggest diet changes or an qrym-fxu-pogyqgw (OTC) medication, such as Gas-X (simethicone), to help relieve gas and burping. If your burping is related to acid reflux or indigestion, your doctor may suggest an OTC antacid, such as Pepcid (famotidine) or Tums (calcium carbonate tablets). See your doctor right away if you have gas or burping along with vomiting or severe pain in your back or abdomen (belly). These could be symptoms of pancreatitis (swelling of the pancreas), which is a serious side effect of Ozempic. (See Pancreatitis below to learn more.) Dizziness Some people may experience dizziness while using Ozempic. However, this isn t a common symptom of Ozempic. Dizziness could also be a symptom of hypoglycemia (low blood sugar). Hypoglycemia is a serious sideeffect of Ozempic that can cause severe health problems if it s not treated. What might help Talk with your doctor right away if you feel dizzy while using Ozempic. Before starting Ozempic, ask your doctor how often you should check your blood sugar. Also, ask your doctor or pharmacist to explain the symptoms of low blood sugar and how to manage these episodes. Your doctor or pharmacist may suggest that you carry OTC glucose products so you re ready to treat low blood sugar quickly before it becomes severe. (See Hypoglycemia below to learn more.) Pancreatitis In rare cases, Ozempic may cause pancreatitis (swelling of the pancreas). This can be either acute (short-term) pancreatitis or chronic pancreatitis. Your pancreas is a gland that releases enzymes (proteins) and substances, such as insulin, needed to digest foods and use energy. When the pancreas becomes inflamed, the swelling can damage your pancreas and cause symptoms. Acute pancreatitis usually lasts for a short period of time and goes away after treatment. Chronic pancreatitis may develop with continued damage to the pancreas over time. What might help Before starting Ozempic, tell your doctor if you ve had pancreatitis or other pancreatic problems before. It may be unsafe for you to use Ozempic. If so, your doctor will prescribe another diabetes treatment. While using Ozempic, watch for pancreatitis symptoms, such as: abdomen (belly) pain that may radiate to your back nausea or vomiting bloating fever See your doctor right away if you experience any of these symptoms. If your doctor confirms you have pancreatitis, they ll stop your Ozempic and manage your condition. Hypoglycemia Ozempic may cause hypoglycemia (low blood sugar). This side effect is more common if you use Ozempic along with insulin or other diabetes drugs. Making certain lifestyle changes, such as fasting or suddenly changing your diet, can cause low blood sugar, too. If your blood sugar gets too low, it can cause symptoms or serious health problems. Examples of these problems include dizziness, blurred vision, or seizures. What might help Before starting Ozempic, tell your doctor if you take insulin or any other medications. They may adjust your insulin regimen or your dosage of other diabetes drugs to help prevent low blood sugar with Ozempic. Follow your prescribed diabetes treatment plan, including your meal plan, to keep your blood sugar in a healthy range. If you change your diet or physical activity level, tell your doctor. And tell them if you gain or lose a lot of weight. These factors can affect your blood sugar and may make you more likely to have episodes of hypoglycemia. Symptoms of hypoglycemia can vary, but common symptoms to watch for include: dizziness shakiness chills or sweating confusion or clumsiness paleness blurry vision intense hunger You should keep foods on hand that can raise your blood sugar quickly if you have an episode of hypoglycemia. Or you can try OTC glucose gels or chewable glucose tablets. If you have severe hypoglycemia, call 911 or your local emergency phone number, or have someone drive you to the emergency room. (You shouldn t drive yourself during an episode of severe hypoglycemia.) Allergic reaction Like most drugs, Ozempic can cause an allergic reaction in some people. Symptoms can be mild, such as: rash itchiness flushing (warmth, swelling, or redness in your skin) But in rare cases, Ozempic may cause a serious allergic reaction with severe symptoms, such as: swelling under your skin, typically in your eyelids, lips, hands, or feet swelling of your mouth, tongue, or throat, which can make it hard to breathe What might help If you have mild symptoms of an allergic reaction, such as a mild rash, call your doctor right away. They may suggest an OTC treatment to manage your symptoms. Examples of these treatments include anantihistamine such as Benadryl (diphenhydramine) or a hydrocortisone cream. If your doctor confirms you had a mild allergic reaction to Ozempic, they ll decide if you should continue using the drug. If you have symptoms of a severe allergic reaction, such as swelling or trouble breathing, call 911or your local emergency number right away. These symptoms could be life threatening and require immediate medical care. If your doctor confirms you had a serious allergic reaction to Ozempic, they ll have you stop usingthe drug and switch you to a different treatment. Keeping track of side effects During your Ozempic treatment, consider keeping notes on any side effects you re having, especiallyepisodes of hypoglycemia (low blood sugar). Then, you can share this information with your doctor. This is especially helpful to do when you first start taking new drugs or using a combination of treatments. Your side effect notes can include things like: what dose of drug you were taking when you had the side effect how soon after starting that dose you had the side effect what your symptoms were from the side effect how it affected your daily activities what other medications you were also taking any other information you feel is important Keeping notes and sharing them with your doctor will help your doctor learn more about how Ozempic affects you. And your doctor can use this information to adjust your treatment plan if needed Warnings for Ozempic Ozempic has multiple warnings that may affect whether or not you can safely use this drug. Boxed warning: Thyroid cancer risk Ozempic has a boxed warning for the risk of thyroid cancer. A boxed warning is the most serious warning from the Food and Drug Administration (FDA). Ozempic has caused thyroid cancer in animals. It s unclear if the drug also increases thyroid cancer risk in humans. To lower the potential risk of thyroid cancer, don t use Ozempic if: you have a rare genetic condition called multiple endocrine neoplasia type 2 you or a family member has had medullary thyroid cancer For more details, see the Side effects explained section above. Other warnings Ozempic may not be right for you if you have certain medical conditions or other factors that affect your health. Talk with your doctor about your health history before you take Ozempic. Factors to consider include those in the list below. Kidney problems. Before starting Ozempic, tell your doctor if you ve had any kidney problems. Drugssuch as Ozempic have caused new or worsening kidney disease, including kidney failure, in some people. If you become dehydrated from other side effects of Ozempic, such as vomiting or diarrhea, this could also cause kidney problems. Your doctor may monitor your kidney health closely during your Ozempic treatment. If you develop new or worsening kidney problems, they may stop your treatment. Allergic reaction to GLP-1 agonists. If you ve had an allergic reaction to Ozempic or any of its ingredients, you shouldn t take Ozempic. Also tell your doctor if you ve had an allergic reaction to another GLP-1 agonist (the drug class Ozempic belongs to). If you have, you could have an allergic reaction to Ozempic, which could be severe. Your doctor can prescribe a safer treatment option for you. Diabetic retinopathy. If you have diabetic retinopathy, using Ozempic may make it worse. Tell your doctor if you have this condition before starting Ozempic. While using this drug, keep all your eye appointments and tell your doctor right away if you have any vision changes. Pancreatitis. Ozempic may cause pancreatitis. It s unclear if Ozempic is safe to use if you ve had pancreatitis or other pancreatic problems, so tell your doctor if you ve had these conditions before. They may choose another treatment option for you. Insulin or other diabetes drug use. Using Ozempic with insulin or other diabetes drugs may raise your risk for severe hypoglycemia. If untreated, this condition can cause serious health problems. Before starting Ozempic, tell your doctor about all medications you take. They may adjust your insulin regimen or your dosage of other diabetes drugs to help prevent hypoglycemia with Ozempic. But don t make changes to your diabetes treatment plan unless your doctor recommends it. Alcohol use and Ozempic Ozempic isn t known to interact with alcohol. However, Ozempic lowers your blood sugar. Alcohol maymake your blood sugar drop, too. So, drinking alcohol during your Ozempic treatment may cause severe hypoglycemia (low blood sugar). Also, chronic (long-term) alcohol use is a common cause of pancreatitis (swelling of the pancreas).Using Ozempic may raise your risk for pancreatitis, too. To help prevent these health problems, avoid excessive alcohol use during your Ozempic treatment. If you drink alcohol, talk with your doctor about how much may be safe for you to drink with your condition and treatment plan. and while taking Ozempic It s unknown if Ozempic is safe to use during or while . If you re planning to become , you ll need to stop Ozempic at least 2 months before trying to conceive. This waiting period ensures your body has fully cleared the drug from your system. If you become while using Ozempic, talk with your doctor right away. If you re or planning to breastfeed, talk with your doctor about the risks and benefits of using Ozempic. What to ask your doctor If you have type 2 diabetes, Ozempic may help improve your blood sugar levels. If you also have cardiovascular disease (CVD), it can lower your risk for heart attack, stroke, or from CVD. Ozempic can cause side effects in some people. In general, Ozempic s common side effects are mild. But in rare cases, the drug could cause serious side effects. If you have questions about possible side effects with Ozempic, talk with your doctor or pharmacist. They can provide answers to help you feel confident about your diabetes treatment plan. Examples of questions you may want to ask include: What s my risk for serious side effects? Is there anything I can do to prevent diabetic retinopathy while using Ozempic? If I have kidney disease and have diarrhea with Ozempic, is it safe to drink electrolyte replacement solutions such as Pedialyte to stay hydrated? How should I manage injection-site reactions with Ozempic? I have gallstones that I manage through my diet. Should I avoid using Ozempic? For tips on managing your condition, eating wisely, and more, subscribe to our online newsletter for type 2 diabetes. [facility] History of Present illness Narrative* Celso Arauz APRN.[employer]ING [employer] - 11/01/2021 7:15 AM EDT BMI OM PostOp Clinic Note November 01, 2021 Index Surgery Date of Surgery: 08/05/2018 Surgeon: Heath Echols MD Surgical Procedure: LAPAROSCOPIC GASTRIC RESTRICTIVE SURG W/ BYPASS & PARKER-EN-Y 150CM OR LESS Pre-surgical weight: 139.7 kg (308 lb) Override Index Surgery Information? No Other Bariatric Surgeries None Visit: 3 years Today's Visit: Wt 88.5 kg (195 lb) BMI 33.26 kg/m2 BMI 30.67 kg/(m^2) Last Visit: Wt: 87.1 kg (192 lb) BMI: 32.18 kg/(m^2) Total weight loss: 51.3 kg (113 lb) Gatzke weight: 67.5 kg (148 lb 13.8 oz) Excess weight: 72.2 kg (159 lb 2.2 oz) % of excess body weight lost: 51.3 kg (113 lb) (71.01% of excess weight loss) Gonzalo 178 lbs. COMPLICATIONS SINCE LAST VISIT?: Other: Kidney stones Last visit with Fide Salas CNP 08/30/20: 39 year old female with Class I obesity 2 years. s/p LAPAROSCOPIC GASTRIC RESTRICTIVE SURG W/ BYPASS & PARKER-EN-Y 150CM OR LESS, responding well. 1. 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 Loose skin - ICD9: 701.9, ICD10: L98.7, Yeast infection of the skin - ICD9: 112.3, ICD10: B37.2 - CONSULT TO PLASTIC SURGERY - keep area clean and dry 3. Kidney stones, calcium oxalate - ICD9: 592.0, ICD10: N20.0 - Seeing urology today - follow up with BMI nutrition as needed - patient cautioned on use of NSAIDS for kidney stone pain and risk for ulcer - continue pepcid - pantoprazole DR (PROTONIX) 40 mg tablet once per day INTERVAL HISTORY says she snores sometimes, was started on Elavil for poor sleep. Falls asleep at 8:30 pm wakes at 4 am. Denies food intolerances, only has a hard time if her protein is dry. < 50 g Oxilate per day for stone prevention. Increased water intake, > 110 oz per day. Still working out with personal fitness trainer. Had her excess skin surgery, abdominoplasty and arms done. No longer has any problems with fungal infections. DIET INTAKE: tolerates Phase V diet. DAILY SUPPLEMENTS: Yes Calcium: Calcium citrate from celebrate 500 mg TID Multivitamin & Minerals: 2 per day Iron Supplement: 45-60 mg in multivitamin Vitamin B12: included in multivitamin Vitamin D3: 2000 IU BID Other: Biotin 5000 mcg daily EXERCISE: increased, working with personal fitness trainer SLEEP: RANDEE No , CPAP No On elavil, possibly weight promoting Are you attending any Support Groups? No attendance Current Outpatient Medications Medication Sig semaglutide (OZEMPIC) 0.25 mg or 0.5 mg(2 mg/1.5 mL) pen injector Inject 0.25 mg subcutaneously onetime a week for 28 days, THEN 0.5 mg one time a week for 14 days. amitriptyline (ELAVIL) 10 mg tablet Take 30 mg by mouth daily at bedtime. mupirocin (BACTROBAN) 2 % ointment Apply to incisions twice daily FLUoxetine (PROZAC) 20 mg capsule Take 1 capsule by mouth once daily. (Patient taking differently: Take 40 mg by mouth once daily. ) buPROPion (WELLBUTRIN) 100 mg tablet Take 1 tablet by mouth three times daily. melatonin 1 mg tablet Take 1 tablet by mouth as needed for for insomnia. polyethylene glycol 3350 (MIRALAX) 17 gram/dose powder Take by mouth once daily. Calcium Citrate 250 mg calcium tab Take 2 tablets by mouth three times daily. 2 tablets by mouth three times daily vitamin D3-vitamin K2, MK4, 1,000-100 unit-mcg tab Take 1 capsule by mouth three times daily. Lactobac no.41/Bifidobact no.7 (PROBIOTIC-10 ORAL) diphenhydrAMINE (BENADRYL) 25 mg capsule cetirizine (ZYRTEC) 10 mg tablet Take 10 mg by mouth. multivitamin (MULTIPLE VITAMINS ORAL) Take by mouth. No current facility-administered medications for this visit. OSH lab review: Normal CBC, CMP, vitamins: B12, B1, D Folate, increased PTH and decrease calcium. REVIEW OF SYSTEMS: Denies paresthesias, gait abnormality, fatigue, weakness, lower extremity edema,Has excess skin and intertrigo under pannus (treated for fungal infection in June), nausea due to kidney stones and constipation with pain meds. OBESITY MEDICINE COMORBIDITIES: N/A PHYSICAL EXAM: Wt 86.2 kg (190 lb) BMI 30.67 kg/m Physical exam: VIDEO EXAM: (if done, performed via video enabled technology) NAD, physical assessment not performed. Assessment / Plan 39 year old female with Class I obesity 3 years. s/p LAPAROSCOPIC GASTRIC RESTRICTIVE SURG W/ BYPASS & PARKER-EN-Y 150CM OR LESS, responding well. ASSESSMENT/PLAN: 1. Class 1 obesity with body mass index (BMI) of 30.0 to 30.9 in adult, unspecified obesity type, unspecified whether serious comorbidity present - ICD9: 278.00, V85.30, ICD10: E66.9, Z68.30 (primarydiagnosis). S/P gastric bypass - ICD9: V45.86, ICD10: Z98.84 Stable - Continue current medications and - Add Semaglutide (Ozempic) - continue with RDN - labs WNL except calcium and PTH, may be related to secondary hyperparathyroidism from bariatric surgery. Patient already treated with calcium citrate 400 mg TID. - will reach out to staff for assistance with treatment - will consider referral to endocrinology for assistance 2. Kidney stones, calcium oxalate - ICD9: 592.0, ICD10: N20.0 - Appointment with urology in December. - follow up with BMI nutrition as needed - patient cautioned on use of NSAIDS for kidney stone pain and risk for ulcer DISPOSITION: Return in 1 year to Post-op follow up/ individual office visit EDUCATION: Encouraged to continue with healthy lifestyle changes and incorporate cardiovascular andresistance training, Discussed weight loss expectations after bariatric and metabolic surgery, Advised PT to avoid NSAIDs, smoking tobacco given increased risk of marginal ulcers or Discussed importance of protein intake as per the RDN note REFERRALS: Pt is following with urology LABS: Today: none, labs drawn at OSH, copied and sent to medical records. Celso Arauz APRN.CNP I spent a total of 29 minutes on the date of the service which included preparing to see the patient, [id number] patient care, completing clinical documentation, obtaining and/or reviewing separately obtained history, performing a medically appropriate examination, counseling and educating the pat ient/family/caregiver and ordering medications, tests, or procedures. [facility] Hospital Discharge instructions Patient Education 10/01/2021 07:15:19 Living With Depression Living With Depression Everyone experiences occasional disappointment, sadness, and loss in their lives. When you are feeling down, blue, or sad for at least 2 weeks in a row, it may mean that you have depression. Depression can affect your thoughts and feelings, relationships, daily activities, and physical health. It is caused by changes in the way your brain functions. If you receive a diagnosis of depression, your health care provider will tell you which type of depression you have and what treatment options are available to you. If you are living with depression, there are ways to help you recover from it and also ways to prevent it from coming back. How to cope with lifestyle changes Coping with stress Stress is your body s reaction to life changes and events, both good and bad. Stressful situations may include: Getting . The of a spouse. Losing a job. Retiring. Having a baby. Stress can last just a few hours or it can be ongoing. Stress can play a major role in depression, so it is important to learn both how to cope with stress and how to think about it differently. Talk with your health care provider or a counselor if you would like to learn more about stress reduction. He or she may suggest some stress reduction techniques, such as: Music therapy. This can include creating music or listening to music. Choose music that you enjoy and that inspires you. Mindfulness-based meditation. This kind of meditation can be done while sitting or walking. It involves being aware of your normal breaths, rather than trying to control your breathing. Centering prayer. This is a kind of meditation that involves focusing on a spiritual word or phrase. Choose a word, phrase, or sacred image that is meaningful to you and that brings you peace. Deep breathing. To do this, expand your stomach and inhale slowly through your nose. Hold your breath for 3 5 seconds, then exhale slowly, allowing your stomach muscles to relax. Muscle relaxation. This involves intentionally tensing muscles then relaxing them. Choose a stress reduction technique that fits your lifestyle and personality. Stress reduction techniques take time and practice to develop. Set aside 5 15 minutes a day to do them. Therapists can offer training in these techniques. The training may be covered by some insurance plans. Other things you can do to manage stress include: Keeping a stress diary. This can help you learn what triggers your stress and ways to control your response. Understanding what your limits are and saying no to requests or events that lead to a schedule thatis too full. Thinking about how you respond to certain situations. You may not be able to control everything, but you can control how you react. Adding humor to your life by watching funny films or TV shows. Making time for activities that help you relax and not feeling guilty about spending your time thisway. Medicines Your health care provider may suggest certain medicines if he or she feels that they will help improve your condition. Avoid using alcohol and other substances that may prevent your medicines from working properly (may interact). It is also important to: Talk with your pharmacist or health care provider about all the medicines that you take, their possible side effects, and what medicines are safe to take together. Make it your goal to take part in all treatment decisions (shared decision- making). This includes giving input on the side effects of medicines. It is best if shared decision-making with your health care provider is part of your total treatment plan. If your health care provider prescribes a medicine, you may not notice the full benefits of it for 4 8 weeks. Most people who are treated for depression need to be on medicine for at least 6 12 months after they feel better. If you are taking medicines as part of your treatment, do not stop taking medicines without first talking to your health care provider. You may need to have the medicine slowly decreased (tapered) over time to decrease the risk of harmful side effects. Relationships Your health care provider may suggest family therapy along with individual therapy and drug therapy. While there may not be family problems that are causing you to feel depressed, it is still important to make sure your family learns as much as they can about your mental health. Having your family s support can help make your treatment successful. How to recognize changes in your condition Everyone has a different response to treatment for depression. Recovery from major depression happens when you have not had signs of major depression for two months. This may mean that you will startto: Have more interest in doing activities. Feel less hopeless than you did 2 months ago. Have more energy. Overeat less often, or have better or improving appetite. Have better concentration. Your health care provider will work with you to decide the next steps in your recovery. It is also important to recognize when your condition is getting worse. Watch for these signs: Having fatigue or low energy. Eating too much or too little. Sleeping too much or too little. Feeling restless, agitated, or hopeless. Having trouble concentrating or making decisions. Having unexplained physical complaints. Feeling irritable, angry, or aggressive. Get help as soon as you or your family members notice these symptoms coming back. How to get support and help from others How to talk with friends and family members about your condition Talking to friends and family members about your condition can provide you with one way to get support and guidance. Reach out to trusted friends or family members, explain your symptoms to them, andlet them know that you are working with a health care provider to treat your depression. Financial resources Not all insurance plans cover mental health care, so it is important to check with your insurance carrier. If paying for co-pays or counseling services is a problem, search for a local or [facility] mental health care center. They may be able to offer public mental health care services at low or no cost when you are not able to see a private health care provider. If you are taking medicine for depression, you may be able to get the generic form, which may be less expensive. Some makers of prescription medicines also offer help to patients who cannot afford the medicines they need. Follow these instructions at home: Get the right amount and quality of sleep. Cut down on using caffeine, tobacco, alcohol, and other potentially harmful substances. Try to exercise, such as walking or lifting small weights. Take [id number] and prescription medicines only as told by your health care provider. Eat a healthy diet that includes plenty of vegetables, fruits, whole grains, low-fat dairy products, and lean protein. Do not eat a lot of foods that are high in solid fats, added sugars, or salt. Keep all follow-up visits as told by your health care provider. This is important. Contact a health care provider if: You stop taking your antidepressant medicines, and you have any of these symptoms: ?Nausea. ?Headache. ?Feeling lightheaded. ?Chills and body aches. ?Not being able to sleep (insomnia). You or your friends and family think your depression is getting worse. Get help right away if: You have thoughts of hurting yourself or others. If you ever feel like you may hurt yourself or others, or have thoughts about taking your own life,get help right away. You can go to your nearest emergency department or call: Your local emergency services (911 in the [place] A suicide crisis helpline, such as the National Suicide Prevention Lifeline at . Thisis open 24-hours a day. Summary If you are living with depression, there are ways to help you recover from it and also ways to prevent it from coming back. Work with your health care team to create a management plan that includes counseling, stress management techniques, and healthy lifestyle habits. This information is not intended to replace advice given to you by your health care provider. Make sure you discuss any questions you have with your health care provider. Document Released: 04/29/2017 Document Revised: 09/18/2019 Document Reviewed: 04/29/2017 [employer] Patient [employer] 2020 [place]. Follow Up Care 02/03/2021 08:52:52 With:Eldon SHIN MD [facility] Address: [address] [place] [id number] When:6 months [facility] 04-07-2022 History of Present illness Narrative* Evan Mason MD - 2021 11:30 AM EDT CC: s/p abdominoplasty and bilateral brachioplasty HPI: Date of Surgery: 04/24/21 Surgery: Abdominoplasty and bilateral brachioplasty Time Postop: 4.5 months S: Doing well Using compression Overall very happy with results No issues with pain. Has a small bump along right arm incision that will occasionally open. O: Bilateral upper extremity Incisions closed, c/d/i, without erythema or drainage. Mild suture reaction at the right arm incision Abdomen soft, nontender ASSESSMENT/PLAN: Post-op course: Expected post op course Healing well Removed remaining sutures in clinic. -Continue wearing compressive undergarments -Okay to swim and bathe Return to clinic prn The patient is seen and examined by Dr. Mason and the following reflects his service. Scribed by Jayshree Snider RN and Gloria Allen. Provider Attestation: I, Evan Mason MD, personally performed the services described in this documentation. All medical record entries made by the scribe were at my direction and in my presence. I have reviewed the chart and discharge instructions (if applicable) and agree that the record reflects my personal performance and is accurate and complete. Dr. Evan Mason MD September 15, 2021 5:09 PM [facility] of Past illness Narrative* Problem Noted Date Resolved Date Obesity, Class III, BMI >= 40 08/03/2018 Acute postoperative pain 07/30/2018 021 Preoperative examination 06/26/2018 020 Overview: Added automatically from request for surgery [id number] Morbid obesity 06/23/2018 07/27/2019 Obstructive sleep apnea 05/13/2018 02/26/20 20 Essential hypertension 05/13/2018 0 Kidney stones, calcium oxalate 1 06/14/2020 documented as of this encounter (statuses as of 09/15/2021) [facility] of Past illness Narrative* Problem Noted Date Resolved Date Obesity, Class III, BMI >= 40 08/03/2018 Acute postoperative pain 07/30/2018 021 Preoperative examination 06/26/2018 020 Overview: Added automatically from request for surgery [id number] Morbid obesity 06/23/2018 07/27/2019 Obstructive sleep apnea 05/13/2018 02/26/20 20 Essential hypertension 05/13/2018 0 Kidney stones, calcium oxalate 1 06/14/2020 documented as of this encounter (statuses as of 11/01/2021) [facility] of Past illness Narrative* Problem Noted Date Resolved Date Obesity, Class III, BMI >= 40 08/03/2018 Acute postoperative pain 07/30/2018 021 Preoperative examination 06/26/2018 020 Overview: Added automatically from request for surgery [id number] Morbid obesity 06/23/2018 07/27/2019 Obstructive sleep apnea 05/13/2018 02/26/20 20 Essential hypertension 05/13/2018 0 Kidney stones, calcium oxalate 1 06/14/2020 documented as of this encounter (statuses as of 11/08/2021) [facility] of Past illness Narrative* Problem Noted Date Resolved Date Obesity, Class III, BMI >= 40 08/03/2018 Acute postoperative pain 07/30/2018 021 Preoperative examination 06/26/2018 020 Overview: Added automatically from request for surgery [id number] Morbid obesity 06/23/2018 07/27/2019 Obstructive sleep apnea 05/13/2018 02/26/20 20 Essential hypertension 05/13/2018 0 Kidney stones, calcium oxalate 1 06/14/2020 documented as of this encounter (statuses as of 12/12/2021) [facility] of [facility] illness Narrative* Problem Noted Date Resolved Date Obesity, Class III, BMI >= 40 08/03/2018 Acute postoperative pain 07/30/2018 021 Preoperative examination 06/26/2018 020 Overview: Added automatically from request for surgery [id number] Morbid obesity 06/23/2018 07/27/2019 Obstructive sleep apnea 05/13/2018 02/26/20 20 Essential hypertension 05/13/2018 0 Kidney stones, calcium oxalate 1 06/14/2020 documented as of this encounter (statuses as of 01/08/2022) [facility] Narrative* Problem Noted Date Resolved Date Obesity, Class III, BMI >= 40 08/03/2018 Acute postoperative pain 07/30/2018 021 Preoperative examination 06/26/2018 020 Overview: Added automatically from request for surgery [id number] Morbid obesity 06/23/2018 07/27/2019 Obstructive sleep apnea 05/13/2018 02/26/20 20 Essential hypertension 05/13/2018 0 Kidney stones, calcium oxalate 1 06/14/2020 documented as of this encounter (statuses as of 02/15/2022) [facility] Narrative* Problem Noted Date Resolved Date Obesity, Class III, BMI >= 40 08/03/2018 Acute postoperative pain 07/30/2018 021 Preoperative examination 06/26/2018 020 Overview: Added automatically from request for surgery [id number] Morbid obesity 06/23/2018 07/27/2019 Obstructive sleep apnea 05/13/2018 02/26/20 20 Essential hypertension 05/13/2018 0 Kidney stones, calcium oxalate 1 06/14/2020 documented as of this encounter (statuses as of 05/15/2022) [facility] Narrative* Problem Noted Date Resolved Date Obesity, Class III, BMI >= 40 08/03/2018 Acute postoperative pain 07/30/2018 021 Preoperative examination 06/26/2018 020 Overview: Added automatically from request for surgery [id number] Morbid obesity 06/23/2018 07/27/2019 Obstructive sleep apnea 05/13/2018 02/26/20 20 Essential hypertension 05/13/2018 0 Kidney stones, calcium oxalate 1 06/14/2020 documented as of this encounter (statuses as of 06/14/2022) [facility] Narrative* Problem Noted Date Resolved Date Obesity, Class III, BMI >= 40 08/03/2018 Acute postoperative pain 07/30/2018 021 Preoperative examination 06/26/2018 020 Overview: Added automatically from request for surgery [id number] Morbid obesity 06/23/2018 07/27/2019 Obstructive sleep apnea 05/13/2018 02/26/20 20 Essential hypertension 05/13/2018 0 Kidney stones, calcium oxalate 1 06/14/2020 documented as of this encounter (statuses as of 08/08/2022) [facility] Narrative* Problem Noted Date Resolved Date Obesity, Class III, BMI >= 40 08/03/2018 Acute postoperative pain 07/30/2018 021 Preoperative examination 06/26/2018 020 Overview: Added automatically from request for surgery [id number] Morbid obesity 06/23/2018 07/27/2019 Obstructive sleep apnea 05/13/2018 02/26/20 20 Essential hypertension 05/13/2018 0 Kidney stones, calcium oxalate 1 06/14/2020 documented as of this encounter (statuses as of 10/18/2022) [facility] Narrative* Problem Noted Date Resolved Date Obesity, Class III, BMI >= 40 08/03/2018 Acute postoperative pain 07/30/2018 021 Preoperative examination 06/26/2018 020 Overview: Added automatically from request for surgery [id number] Morbid obesity 06/23/2018 07/27/2019 Obstructive sleep apnea 05/13/2018 02/26/20 20 Essential hypertension 05/13/2018 0 Kidney stones, calcium oxalate 1 06/14/2020 documented as of this encounter (statuses as of 12/07/2022) [facility] Narrative* Problem Noted Date Diagnosed Date Resolved Date Obesity, Class III, BMI >= 40 08/03/2018 07/27/2019 Acute postoperative pain 07/30/201810/2020 Preoperative examination 06/26/2018 Overview: Added automatically from request for surgery [id number] Morbid obesity 06/23/2018 07/27/2019 Obstructive sleep apnea 05/13/201802/08 Essential hypertension 05/13/201802/25 Kidney stones, calcium oxalate 04/14/2021 documented as of this encounter (statuses as of 07/17/2023) [facility] App[facility]ments Appointment Date:12/15/2021 08:00:00 AM Scheduled Provider:Francisco HELTON MD [facility] Appointment Type:URO Office Visit Appointment Date:02/08/2022 09:40:00 AM Scheduled Provider:Eldon SHIN MD Location:[facility] Appointment Type: Open Future Scheduled Tests Laboratory* Urine Culture 03/08/21 [facility] [place] Evaluation + Plan note Future Appointments Appointment Date:12/15/2021 08:00:00 AM Scheduled Provider:Francisco HELTON MD Location[facility] Appointment Type:URO Office Visit Appointment Date:02/08/2022 09:40:00 AM Scheduled Provider:Eldon SHIN MD Location:[facility] Appointment Type: Open Future Scheduled Tests Laboratory* [facility] Appointment Date:02/08/2022 09:40:00 AM Scheduled Provider:Eldon SHIN MD Location:[facility] [place] Appointment Type:FM Open Appointment Date:07/06/2022 08:15:00 AM Scheduled Provider:Francisco HELTON MD Location:[facility] Appointment Type:URO Office Visit Future Scheduled Tests Laboratory* Urine Culture 03/08/21 [facility] evaluation + Plan note Future Appointments Appointment Date:07/06/2022 08:15:00 AM Scheduled Provider:Francisco HELTON MD Location:[facility] Appointment Type:URO Office Visit Appointment Date:08/16/2022 08:00:00 AM Scheduled Provider:Eldon SHIN MD Location:[facility] Appointment Type: Open Future Scheduled Tests Laboratory* Urine Culture 03/08/21 Radiology* MA Mamm Screen w/CAD if perf and 3D Piero 02/08/22 [facility] [place] + Plan note Future Appointments Appointment Date:07/11/2022 03:00:00 PM Scheduled Provider:JAYSHREE PRADO PA-C Location:[facility] Appointment Type:URO Office Visit Appointment Date:08/16/2022 08:00:00 AM Scheduled Provider:[facility] Future Appointments Appointment Date:08/16/2022 08:00:00 AM Scheduled Provider:Eldon SHIN MD [facility] Type:FM Open Appointment Date:01/07/2023 08:45:00 AM Scheduled Provider:Franc[facility] HELTON [facility] Office Visit Diagnostic Tests Pending * Urine Culture 07/10/22 Future Scheduled Tests Radiology* XR Abdomen 1 View [facility]07[facility] Future App[facility]ments Appointment Date:01/07/2023 08:45:00 AM Scheduled Provider:Francisco HELTON MD [facility] Type:[facility]O Office Visit Appointment Date:02/21/2023 08:00:00 AM Scheduled Provider:Eldon SHIN MD [facility] Type:FM Open Future Scheduled Tests Radiology* XR Abdomen 1 View 01/07/23 [facility] [place] + Plan note Future Appointments Appointment Date:01/07/2023 08:45:00 AM Scheduled Provider:Francisco HELTON MD [facility] Type:URO Office Visit Appointment Date:02/21/2023 08:00:00 AM Scheduled Provider:Eldon SHIN MD [facility] Type: Open Diagnostic Tests Pending * PTH Intact 08/24/22 * Insulin Level Total 08/24/22 * Vitamin B1 08/24/22 Future Scheduled Tests Radiology* XR Abdomen 1 View [facility]07[facility] Future App[facility]ments Appointment Date:01/07/2023 08:45:00 AM Scheduled Provider:Francisco HELTON MD [facility] Type:URO Office Visit Appointment Date:02/21/2023 08:00:00 AM Scheduled Provider:Eldon SHIN MD [facility] Future Appointments Appointment Date:02/21/2023 08:00:00 AM Scheduled Provider:Eldon SHIN MD Location:[facility] Appointment Type:FM Open Appointment Date:12/16/2023 08:45:00 AM Scheduled Provider:Francisco HELTON MD Location:[facility] Appointment Type:URO Office Visit Future Scheduled Tests Radiology* XR Abdomen 1 View 01/08/24 [facility] evaluation + Plan note Future Appointments Appointment Date:03/01/2023 03:40:00 PM Scheduled Provider:Eldon SHIN MD [facility] App[facility] Type:FM Open Appointment Date:12/16/2023 08:45:00 AM Scheduled Provider:Francisco HELTON MD Location:[facility] Appointment Type:URO Office Visit Diagnostic Tests Pending * Phosphorus Level 24 Hour Urine 01/28/23 * Calcium Level 24 Hour Urine 01/28/23 * Uric Acid 24 Hour Urine 01/28/23 * Oxalate 24 Hour Urine 01/28/23 * Citrate Level 24 Hour Urine 01/28/23 * Magnesium Level 24 Hour Urine 01/28/23 Future Scheduled Tests Radiology* XR Abdomen 1 View [facility]08/[facility] Future App[facility]ments Appointment Date:03/18/2023 11:40:00 AM Scheduled Provider: [place] [place]ointment Type:Flu Vaccine Appointment Date:08/30/2023 04:00:00 PM Scheduled Provider:Eldon SHNI MD Location:[facility] Appointment Type:FM Open Appointment Date:12/16/2023 08:45:00 AM Scheduled Provider:Francisco HELTON MD [facility] Type:URO Office Visit Future Scheduled Tests Radiology* XR Abdomen 1 View 01/08/24 * MA Mamm Screen w/CAD if perf and 3D Piero 03/01/23 [facility] Evaluation + Plan note Future Appointments Appointment Date:12/02/2023 05:00:00 PM Scheduled Provider:Eldon SHIN MD Location:[facility] Appointment Type: Open Appointment Date:12/16/2023 08:45:00 AM Scheduled Provider:Francisco HELTON MD Location:[facility] Appointment Type:URO Office Visit Future Scheduled Tests Laboratory* PTH Intact 08/30/23 * Vitamin B1 08/30/23 * TIBC Calculated 08/30/23 * TSH With T4fr Reflex 08/30/23 * Vitamin D 25 Hydroxy 08/30/23 * CBC w/ Auto Diff 08/30/23 * Comprehensive Metabolic Panel 08/30/23 * Ferritin 08/30/23 * Folate Level 08/30/23 * Iron Level 08/30/23 * Lipid Panel 08/30/23 * Magnesium Level 08/30/23 * Vitamin B12 Level 08/30/23 Radiology* XR Abdomen 1 View 01/08/24 * MA Mamm Screen w/CAD if perf and 3D Piero 08/30/23 [facility] Evaluation + Plan note Future Appointments Appointment Date:09/04/2023 07:30:00 AM Scheduled Provider: [facility] Type:MA Screen (FT) Appointment Date:12/02/2023 05:00:00 PM Scheduled Provider:Eldon SHIN MD Location:[facility] Appointment Type: Open Appointment Date:12/16/2023 08:45:00 AM Scheduled Provider:Francisco HELTON MD Location:[facility] Appointment Type:URO Office Visit Diagnostic Tests Pending * PTH Intact 09/03/23 * Vitamin B1 09/03/23 Future Scheduled Tests Radiology* XR Abdomen 1 View 01/08/24 * MA Mamm Screen w/CAD if perf and 3D Piero [facility]04[facility] App[facility]ments Appointment Date:12/02/2023 05:00:00 PM Scheduled Provider:Eldon SHIN MD [facility] App[facility] Type:FM Open Appointment Date:12/16/2023 08:45:00 AM Scheduled Provider:Francisco HELTON MD Location[facility] Appointment Type:URO Office Visit Future Scheduled Tests Radiology* XR Abdomen 1 View [facility]08/[facility] App[facility]ments Appointment Date:12/20/2023 09:45:00 AM Scheduled Provider:Francisco HELTON MD Location:[facility] Appointment Type:URO Office Visit Appointment Date:02/21/2024 04:00:00 PM Scheduled Provider:Eldon SHIN MD [facility] Type: Open Future Scheduled Tests Radiology* XR Abdomen 1 View 01/08/24 [facility] Evaluation + Plan note Future Appointments Appointment Date:12/13/2023 10:20:00 AM Scheduled Provider:Eldon SHIN MD [facility] Type:FM Open Appointment Date:12/17/2023 07:30:00 AM Scheduled Provider: [facility] Appointment Type:XR Abdomen (FT) Appointment Date:12/20/2023 09:45:00 AM Scheduled Provider:Francisco HELTON MD Location:[facility] Appointment Type:URO Office Visit Appointment Date:02/21/2024 04:00:00 PM Scheduled Provider:Eldon SHIN MD [facility] Type:FM Open Future Scheduled Tests Radiology* XR Abdomen 1 View 12/17/23 [facility] Evaluation + Plan note Future Appointments Appointment Date:12/17/2023 07:30:00 AM Scheduled Provider: Location:FT.XRAY Appointment Type:XR Abdomen (FT) Appointment Date:12/20/2023 09:45:00 AM Scheduled Provider:Francisco HELTON MD Location:[facility] Appointment Type:URO Office Visit Appointment Date:02/21/2024 04:00:00 PM Scheduled Provider:Eldon SHIN [facility]:FM Open Future Scheduled Tests Radiology* XR Abdomen 1 View 12/17/23 [facility] Evaluation + Plan note Future Appointments Appointment Date:12/20/2023 09:45:00 AM Scheduled Provider:Francisco HELTON MD Location:[facility] Radha Appointment Type:URO Office Visit Appointment Date:02/21/2024 04:00:00 PM Scheduled Provider:Eldon SHIN MD Location:[facility] Luciano Appointment Type:FM [facility] Future Appointments Appointment Date:02/21/2024 04:00:00 PM Scheduled Provider:Eldon SHIN MD Location:[facility] Luciano Appointment Type:FM Open Appointment Date:06/29/2024 02:30:00 PM Scheduled Provider:Francisco HELTON MD [facility]O Office Visit [facility] evalhzpnfo note* Diagnosis Post-operative state- Primary Other postprocedural status documented in this encounter [facility] note* Diagnosis Class 1 obesity with body mass index (BMI) of 30.0 to 30.9 in adult, unspecified obesity type, unspecified whether serious comorbidity present- Primary S/P gastric bypass Bariatric surgery status History of sleep apnea Personal history of other specified diseases [facility] [place]* Diagnosis S/P gastric bypass- Primary Bariatric surgery status documented in this encounter [facility] note* Diagnosis Class 1 obesity with body mass index (BMI) of 30.0 to 30.9 in adult, unspecified obesity type, unspecified whether serious comorbidity present- Primary documented in this encounter [facility] note* Diagnosis Class 1 obesity with body mass index (BMI) of 30.0 to 30.9 in adult, unspecified obesity type, unspecified whether serious comorbidity present documented in this encounter [facility] note* Diagnosis Class 1 obesity with body mass index (BMI) of 30.0 to 30.9 in adult, unspecified obesity type, unspecified whether serious comorbidity present- Primary documented in this encounter [facility] note* Diagnosis S/P gastric bypass- Primary Bariatric surgery status Class 1 obesity with body mass index (BMI) of 30.0 to 30.9 in adult, unspecified obesity type, unspecified whether serious comorbidity present documented in this encounter [facility] note* Diagnosis Medication management- Primary Encounter for long-term (current) use of other medications documented in this encounter [facility] note* Diagnosis Encounter for surgical aftercare following surgery of digestive system- Primary Aftercare following surgery of the teeth, oral cavity and digestive system, NEC S/P gastric bypass Bariatric surgery status documented in this encounter [facility] note* Diagnosis S/P gastric bypass- Primary Bariatric surgery status Overweight (BMI 25.0-29.9) Overweight documented in this encounter [facility] note* Diagnosis S/P gastric bypass Bariatric surgery status Class 1 obesity with body mass index (BMI) of 30.0 to 30.9 in adult, unspecified obesity type, unspecified whether serious comorbidity present documented in this encounter [facility] course Narrative No data available for this section [facility] Discharge instructions No data available for this section [facility] No data available for this section [facility] ([facility])* Diagnostic Procedure Only (Routine) - Pending Review Specialty Diagnoses / Procedures Referred By Ben prince Referred To [facility] Diagnoses History of sleep apnea Procedures HOME SLEEP APNEA TEST (HSAT) SLEEP STD AIRFLOW HRT RATE&O2 SAT EFFORT Celso Hart APRN.CNP [address] [place] [address] [facility] [address] [place] [address] Referral ID Status Reason Start Date Expiration Date Visits Requested Visits Authorized [id number] Pending Review Auto-Generat ed Referral 11/01/2021 11/01/2022 1 1 [facility] Summary Purpose Family History No Family History Records FoundNo Family History Records FoundNo Family History Records FoundNo Family History Records Found No data available for this section No data available for this section No data available for this section No data available for this section No data available for this section No data available for this section No Family History Records FoundNo Family History Records FoundNo Family History Records FoundNo Family History Records FoundNo Family History Records FoundNo Family History Records FoundNo Family History Records FoundNo Family History Records FoundNo Family History Records FoundNo Family History Records Found No data available for this section No data available for this section No data available for this section No Family History Records Found Advance Directives No Advanced Directives Records FoundDocuments on File Type Date Recorded Patient Plugger Expl anation Advance Directive(s) 04/24/2021 6:32 AM Advance Directive(s) 04/11/2021 10:49 AM Advance Directive(s) 08/05/2018 7:47 AM Advance Directive(s) 07/30/2018 11:13 AM Advance Directive(s) 07/30/2018 12:49 PM Advance Directive(s) 07/08/2018 5:38 PM Documents on File Type Date Recorded Patient Plugger Expl anation Advance Directive(s) 04/24/2021 6:32 AM Advance Directive(s) 04/11/2021 10:49 AM Advance Directive(s) 08/05/2018 7:47 AM Advance Directive(s) 07/30/2018 11:13 AM Advance Directive(s) 07/30/2018 12:49 PM Advance Directive(s) 07/08/2018 5:38 PM Documents on File Type Date Recorded Patient Plugger Expl anation Advance Directive(s) 07/30/2018 12:49 PM Documents on File Type Date Recorded Patient Plugger Expl anation Advance Directive(s) 07/30/2018 12:49 PM Hospital Course Note HNO ID: [id number] Author: Artis Echols Service: General Surgery Author Type: Physician Type: Discharge Summary Filed: 08/11/2018 5:44 PM Note Text: DISCHARGE SUMMARY PATIENT NAME: Viviane Teresa ADMISSION DATE: 08/05/2018 DISCHARGE DATE: 08/07/2018 Attending: Heath Echols Code Status: Not on file Highest Readmission Risk Score: 8 The 30 day readmissions risk score is derived from an internally validated risk model which evaluates patient level characteristics, utilization history, medication orders and lab results up until the day of discharge. Patients with a score of 40 or above are considered highest risk for readmission. Specific patient level drivers will be listed at the bottom of the summary. Reason for Hospitalization: Morbid obesity Active Problems: RANDEE (obstructive sleep apnea) Essential hypertension Morbid obesity (HCC) Preoperative examination Acute postoperative pain Obesity, Class III, BMI >= 40 Resolved Problems: * No resolved hospital problems. * Operations (more content not included)... Note HNO ID: [id number] Author: Amado Goins Service: General Surgery Author Type: Resident Type: Brief Op Note Filed: 08/05/2018 3:29 PM Note Text: BRIEF OPERATIVE NOTE [facility] LOG ID: [id number] SURGERY/PROCEDURE DATE: 08/05/2018 INCISION/PROCEDURE START TIME: 11:58 AM INCISION CLOSE/PROCEDURE END TIME: 3:11 PM SURGEON(S) AND NEWSPAPER CARRIER(S): Surgeon(s) and Role: * Heath Echols - Reginaldo * Dallin (Res) Filemon - Resident - Assisting * Eva (Ace Goins - Resident - Assisting No Additional Staff PROCEDURES AND ANESTHESIA: Procedure(s) and Anesthesia Type: * LAPAROSCOPIC GASTRIC RESTRICTIVE SURG W/ BYPASS AND PARKER-EN-Y Procedure Findings Note HNO ID: [id number] Author: Amado Goins Service: General Surgery Author Type: Resident Type: Brief Op Note Filed: 08/05/2018 3:29 PM Note Text: BRIEF OPERATIVE NOTE [facility] LOG ID: [id number] SURGERY/PROCEDURE DATE: 08/05/2018 INCISION/PROCEDURE START TIME: 11:58 AM INCISION CLOSE/PROCEDURE END TIME: 3:11 PM SURGEON(S) AND NEWSPAPER CARRIER(S): Surgeon(s) and Role: * Heath Echols - Reginaldo * Dallin (Res) Filemon - Resident - Assisting * Eva (Alvaro) Buster - Resident - Assisting No Additional Staff PROCEDURES AND ANESTHESIA: Procedure(s) and Anesthesia Type: * LAPAROSCOPIC GASTRIC RESTRICTIVE SURG W/ BYPASS AND PARKER-EN-Y Reason for Referral Specialty Diagnoses / Procedures Referred By Contkaila t Referred To Contact Celso Arauz APRN.GREASE REFINING SUPERVISOR [address] [place] [address] Referral ID Status Reason Start Date Expiration Date Visits Re quested Visits Authorized [id number] Denied 1 1 Referral ID Status Reason Start Date Expiration Date Visits Re quested Visits Authorized [id number] Denied 1 1 Specialty Diagnoses / Procedures Referred By Contac t Referred To Contact Diagnoses Class 1 obesity with body mass index (BMI) of 30.0 to 30.9 in adult, unspecified obesity type, unspecified whether serious comorbidity present Celso Arauz DIALYSIS EQUIPMENT TECHNICIAN.GREASE REFINING SUPERVISOR [address] [place] [id number] Referral ID Status Reason Start Date Expiration Date Visits Re quested Visits Authorized [id number] Closed 1 1 Specialty Diagnoses / Procedures Referred By Contac t Referred To Contact Diagnoses Class 1 obesity with body mass index (BMI) of 30.0 to 30.9 in adult, unspecified obesity type, unspecified whether serious comorbidity present Celso Arauz DIALYSIS EQUIPMENT TECHNICIAN.GREASE REFINING SUPERVISOR [address] [place] [address] Referral ID Status Reason Start Date Expiration Date Visits Re quested Visits Authorized [id number] Closed 1 1 Additional Source Comments INFORMATION SOURCE (unrecogn ized section and content) DATE CREATED AUTHOR 03/16/2019 [facility] DATE CREATED AUTHOR AUTHOR'S ORGANIZ ATION 08/11/2020 [facility] DATE CREATED AUTHOR AUTHOR'S ORGANIZ ATION 06/27/2021 [facility] DATE CREATED AUTHOR AUTHOR'S ORGANIZ ATION 07/04/2023 [facility] DATE CREATED AUTHOR AUTHOR'S ORGANIZ ATION 12/11/2023 [facility] DATE CREATED AUTHOR AUTHOR'S ORGANIZ ATION 12/14/2023 [facility] DATE CREATED AUTHOR AUTHOR'S ORGANIZ ATION [facility]20[facility] Source Comments (unrecognize d section and content) In the event this informatio n is protected by the Federal Confidentiality of Alcohol and Drug Abuse Patient Records regulations: The Federal rules restrict any use of the information to criminally investigate or prosecute any alcohol or drug abuse patient.[facility] the event this information is protected by the Federal Confidentiality of Alcohol and Drug Abuse Patient Records regulations: The Federal rules restrict any use of the information to criminally investigate or prosecute any alcohol or drug abuse patient.[facility] the event this information is protected by the Federal Confidentiality of Alcohol and Drug Abuse Patient Records regulations: The Federal rules restrict any use of the information to criminally investigate or prosecute any alcohol or drug abuse patient.[facility] the event this information is protected by the Federal Confidentiality of Alcohol and Drug Abuse Patient Records regulations: The Federal rules restrict any use of the information to criminally investigate or prosecute any alcohol or drug abuse patient.[facility] Hospital[facility] the event this information is protected by the Federal Confidentiality of Alcohol and Drug Abuse Patient Records regulations: The Federal rules restrict any use of the information to criminally investigate or prosecute any alcohol or drug abuse patient.[facility] Hospital[facility] the event this information is protected by the Federal Confidentiality of Alcohol and Drug Abuse Patient Records regulations: The Federal rules restrict any use of the information to criminally investigate or prosecute any alcohol or drug abuse patient.[facility] Hospital[facility] the event this information is protected by the Federal Confidentiality of Alcohol and Drug Abuse Patient Records regulations: The Federal rules restrict any use of the information to criminally investigate or prosecute any alcohol or drug abuse patient.[facility] Hospital[facility] the event this information is protected by the Federal Confidentiality of Alcohol and Drug Abuse Patient Records regulations: The Federal rules restrict any use of the information to criminally investigate or prosecute any alcohol or drug abuse patient.[facility] Hospital[facility] the event this information is protected by the Federal Confidentiality of Alcohol and Drug Abuse Patient Records regulations: The Federal rules restrict any use of the information to criminally investigate or prosecute any alcohol or drug abuse patient.[facility] Hospital[facility] the event this information is protected by the Federal Confidentiality of Alcohol and Drug Abuse Patient Records regulations: The Federal rules restrict any use of the information to criminally investigate or prosecute any alcohol or drug abuse patient.[facility] Hospital[facility] the event this information is protected by the Federal Confidentiality of Alcohol and Drug Abuse Patient Records regulations: The Federal rules restrict any use of the information to criminally investigate or prosecute any alcohol or drug abuse patient.[facility] Hospital[facility] the event this information is protected by the Federal Confidentiality of Alcohol and Drug Abuse Patient Records regulations: The Federal rules restrict any use of the information to criminally investigate or prosecute any alcohol or drug abuse patient.[facility] Reason for Visit (unrecogniz ed section and content) Reason Comments Post Op abdominoplasty and a rm lift Reason Comments Post Op Reason Comments Obesity Reason Comments Follow Up Reason Comments Obesity Reason Comments Weight Problem Follow Up Reason Comments Post Op Reason Comments Obesity Reason Onset Date Comments Refill Request 12/06/2022 Care Teams (unrecognized sec tion and content) Project Surveyor Relationship Specialty Start Date End Date Eldon Shin MD [address] [place] [address] PCP - [facility] 04/11/21 Lyudmila Romeo [address] [place] [address] [facility] 07/16/18 Radha Craft RN Specialty Professor Of Biblical Studies General Surgery 02/07/18 Project Surveyor Relationship Specialty Start Date End Date Eldon Shin MD [address] [place] [address] PCP - [facility] 04/11/21 [place] [address] [facility] 07/16/18 Radha Craft RN Specialty Professor Of Biblical Studies General Surgery 02/07/18 Project Surveyor Relationship Specialty Start Date End Date Eldon Shin MD [address] [place] [address] PCP - [facility] 04/11/21 Lyudmila Romeoct [address] [facility] [place] [address] [facility] 07/16/18 Radha Craft RN Specialty Professor Of Biblical Studies General Surgery 02/07/18 Project Surveyor Relationship Specialty Start Date End Date Eldon Shin MD [address] [place] [address] PCP - [facility] 04/11/21 [place] [address] [facility] 07/16/18 Radha Craft RN Specialty Professor Of Biblical Studies General Surgery 02/07/18 Project Surveyor Relationship Specialty Start Date End Date Eldon Shin MD [address] [place] [address] PCP - [facility] 04/11/21 [place] [address] [facility] 07/16/18 Radha Craft RN Specialty Professor Of Biblical Studies General Surgery 02/07/18 Project Surveyor Relationship Specialty Start Date End Date Eldon Shin MD [address] [place] [address] PCP - [facility] 04/11/21 [place] [address] [facility] 07/16/18 Radha Craft RN Specialty Professor Of Biblical Studies General Surgery 02/07/18 Project Surveyor Relationship Specialty Start Date End Date Eldon Shin MD [address] [place] [address] PCP - General [facility] Medicine 04/11/21 [place] [address] [facility] 07/16/18 Radha Craft RN Specialty Professor Of Biblical Studies General Surgery 02/07/18 Project Surveyor Relationship Specialty Start Date End Date Eldon Shin MD [address] [place] [address] PCP - General [facility] Medicine 04/11/21 [place] [address] [facility] 07/16/18 Radha Craft RN Specialty Professor Of Biblical Studies General Surgery 02/07/18 Project Surveyor Relationship Specialty Start Date End Date Eldon Shin MD [address] [place] [address] PCP - General Family Medicine 04/11/21 Lyudmila Romeo [address] [place] [address] Family Medicine 07/16/18 Radha Craft RN Specialty Professor Of Biblical Studies General Surgery 02/07/18 Project Surveyor Relationship Specialty Start Date End Date Eldon Shin MD [address] [place] [address] PCP - General Family Medicine 04/11/21 Luydmila Romeo [address] [place] [address] Family [facility] 07/16/18 Radha Craft RN Specialty Professor Of Biblical Studies General Surgery 02/07/18 Project Surveyor Relationship Specialty Start Date End Date Eldon Shin MD [address] [place] [address] PCP - General Family Medicine 04/11/21 Lyudmila Romeo [address] [place] [address] Family [facility] 07/16/18 Radha Craft RN Specialty Professor Of Biblical Studies General Surgery 02/07/18 Project Surveyor Relationship Specialty Start Date End Date Eldon Shin MD [address] [place] [address] [place] [address] PCP - General Family Medicine 04/11/21 Lyudmila Romeo DO [address] [place] [address] Family Medicine 07/16/18 Radha Craft RN Specialty Professor Of Biblical Studies General Surgery 02/07/18 FOR RECORDS PERTAINING TO PATIENTS WHO ARE OR HAVE BEEN ENROLLED IN A CHEMICAL DEPENDENCY/SUBSTANCEABUSE PROGRAM, SOME INFORMATION MAY BE OMITTED. This clinical summary was aggregated from multiple sources. Caution should be exercised in using it in the provision of clinical care. This summary normalizes information from multiple sources, and as a consequence, information in this document may materially change the coding, format and clinical context of patient data. In addition, data may be omitted in some cases. CLINICAL DECISIONS SHOULD BE BASED ON THE PRIMARY CLINICAL RECORDS. [facility] [employer] [facility] provides no warranty or guarantee of the accuracy or completeness of information in this document.
--- NOTE | 2024-01-16 07:30 | XR_ITS ---
The [address] [address] Patient Name: VIVIANE DICKERSON MRN: [id number] date: 1980 Sex: F Assigned Patient Location: [facility] Current Patient Location: Accession/Order Number: [id number] Exam Date: 01/16/2024 07:25 Report Date: 01/20/2024 13:56 At the request of: FRANCISCO HELTON Procedure: XR abdomen 1V EXAMINATION: XR abdomen 1V HISTORY: kidney stones COMPARISON: No relevant comparison available. FINDINGS: KIDNEY/URETER - RIGHT: Punctate mid pole nephrolith KIDNEY/URETER - LEFT: Punctate nephroliths measuring up to 5 mm PELVIS: No visible ureteral calcifications. Any visible calcifications favor phleboliths. BOWEL: No abnormal dilation or deviation. Stable suture lines and surgical clips BONES: No acute abnormality. OTHER: Negative. No abnormal gaseous collections. XR/XR abdomen 1V IMPRESSION: Bilateral nephrolithiasis Electronically authenticated by: DAVON SCHULTE Date: 01/20/2024 13:56
[2024-01-16] MEDS: LACTATED RINGER'S SOLUTION 1,000 ML 50 ML IV (08:41)
[2024-01-16] MEDS: CEFAZOLIN SODIUM/DEXTROSE,ISO 1 GM/50 ML PREMIX IV (08:41)
--- NOTE | 2024-01-16 09:22 | P.URON_ITS ---
Urology Surgery Operative Note Operative Note Procedure Date: 01/16/24 Time Out Performed: yes Pre-op Diagnosis: Left nephrolithiasis Post-op Diagnosis: same as pre-op Procedures performed: 1. Left ESWL. Anesthesia: General-LMA Primary Surgeon: Graham Tobias Complications: None Estimated blood loss (mL): 0 Findings: 3, 4 to 5 mm left renal calculi Specimens: None Drains: None Indications for Procedures: This lady has recurrent left-sided nephrolithiasis. She has 3 stones. They are each 4 to 5 mm in size. We discussed management options including ureteroscopic laser lithotripsy versus ESWL. She was desirous for ESWL. She now presents for left ESWL. She has signed an informed consent after all risks were explained. Some of these risks include bleeding, perinephric hematoma, infection and anesthesia to name a few. Detailed description of Procedure: The patient was brought to the Operating Room and placed on Siemens electromagnetic lithotripsy treatment table in the supine position. SCDs were placed on their lower extremities and turned on and functioning during the entire case. Timeout was done by all parties in the room. We all agreed upon the patient's identification and the planned procedures for this patient. General Anesthesia was then administered via LMA. Treatment head was then brought to the patient's correct side. While using flourscopy the upper 2 stones were identified and lined up into the crosshairs. Both of these left- sided stones should get energy with each shock based on their linear orientation to each other.. We then began applying shocks at power level 2.0 and increased to a maximum of power level 3.5. Intermittent fluoroscopy revealed that the stones were slow to fragment. We applied a total of 2500 shocks to the stones. We had satisfactory fragmentation. The lower, third stone seemed to be within the blast path and it did obtain some energy during lithotripsy of the upper 2 stones. We then lined up this lower stone and applied our final 500 shocks. We did get some fragmentation but it did not appear as if we obtained total fragmentation. We stopped the procedure after applying 3000 shocks to the left renal unit. She was then transferred to a [place] bed and wheeled to PACU in stable condition.
--- NOTE | 2024-01-16 11:09 | PC.NURSE ---
Up to bathroom and voids dark red urine without difficulty; no clots noted; urine strained and negative for calculi
== END 2024-01-16 10:40 | disposition home or self-care (01) ==
PROVIDERS: PCP Family Medicine; Visit Provider Urology
PROC: (CPT 873; principal; 2024-01-16 08:50)
DX: N20.0 Calculus of kidney (principal); F32.9 Major depressive disorder, single episode, unspecified; Z98.84 Bariatric surgery status; G47.33 Obstructive sleep apnea (adult) (pediatric); J45.909 Unspecified asthma, uncomplicated
CPT/HCPCS: 50590; 74018; J0690; J1885; J2405; J2704; J3010